=== PATIENT | female | born 1940 | race Caucasian/White ===

== ENCOUNTER → 2017-02-12 07:34 | Day surgery (SDC) | payer MEDICARE, OTHER ==
--- NOTE | 2017-02-10 17:57 | HP ---
HISTORY & PHYSICAL HPI: Patient is a 76-year-old woman, right-hand dominant, 3 months status post non-operative treatment of displaced fractures of the left proximal humerus and anteroinferior glenoid, who presents to me for follow up for the left shoulder and for a history and physical for planned left carpal tunnel release surgery. As a review, patient sustained her left shoulder injury when she fell downstairs on November 07, 2016. X-rays were obtained and then a CT scan to better elucidate the patient's fractures. Patient opted for nonoperative management of her shoulder injury, which seemed appropriate to me given her baseline lifestyle and function, her drinking of three glasses of wine a day, her status as a former smoker, and her recent strokes, with the patient having at least two. I managed the patient with a sling and then started her on physical therapy. Patient is progressing in physical therapy. She describes an occasional ache in the left shoulder, but no pain whatsoever. Past PT notes have indicated that she is able to obtain 95 degrees of passive forward flexion in that left shoulder, 92 degrees of abduction, 10 degrees of external rotation, and internal rotation within normal limits. The patient is no longer taking any narcotics for her pain and is very happy with her progress. However, while treating the patient for her left shoulder fractures, she described a longtime frustration with tingling and numbness in her left hand. It bothers her much more than her left shoulder. It may have been worsened by the shoulder fracture, though the patient and her describe a long history of similar symptoms. She has not had any noticeable swelling from the elbow to the fingertips, which might explain a direct worsening of symptoms because of the shoulder fractures. Patient first described it in all of her fingers, and then she described it as being in her left thumb, index, middle, and ring fingers. In the last 2 clinic visits, the patient, for the first time with me, has described some decreased strength of her left hand. Today, she described some difficulty making a fist. I was hoping that the patient's symptoms would improve as she healed her shoulder fractures, but her carpal tunnel symptoms have only worsened. I sent the patient for an EMG nerve conduction study test, which revealed severe carpal tunnel syndrome and the patient has opted for surgery. The patient was recently seen by her primary care physician, Dr. Biswas, who wrote that the patient is a medium risk for perioperative cardiovascular complications and low risk for perioperative pulmonary complications. He wrote that the patient could abstain from her aspirin (81mg) for 7 days preoperatively and that she could withhold her Xarelto dose the day prior to surgery. I spoke with Dr. Biswas after the patient's clinic visit and he stated that he was okay with the patient withholding Xarelto for the 2 days prior to surgery. The patient will restart it on the late afternoon or evening after surgery, along with her Aspirin. The patient also spoke with Dr. Pandey, her neurologist, due to her recent CVAs. He favored continued Xarelto perioperative dosing, but defered to Dr. Biswas 's judgement. PMH: Atrial fibrillation, hypertension, seizure disorder, history of cerebrovascular accidents. Patient seems to have impoverished memory, although I was not given a specific diagnosis of dementia. (The patient's past medical history is according to her and her , but she acknowledged that she might forget some diagnoses.) PAST SURGICAL HISTORY: In the the patient had general surgery. MEDICATIONS: 1) Xarelto 50 mg one tablet daily. 2) Diltiazem HCl ER 360 mg one tablet daily. 3) Percocet 5/325 one tablet as needed every four to six hours. 4) Levetiracetam 500 mg one tablet by mouth twice daily. 5) Digoxin 125 mcg two tablets by mouth daily. 6) Lamictal 100 mg one tablet by mouth twice daily. 7) Aspirin 81 mg one tablet by mouth daily. 8) Lipitor 20 mg one tablet by mouth q.h.s. ALLERGIES: No known drug allergies. SOCIAL HISTORY: No tobacco use recently, active smoker up to 1995. Positive alcohol use, approximately three glasses of wine daily. She currently lives with her . ROS: Positive for paresthesias and numbness, left hand worse than right hand. Positive for seizures, last seizure approximately one year ago. Positive for stroke, last stroke in June 2016. One other stroke several years ago. Positive for epilepsy Physical Exam: GENERAL: No acute distress. Alert and oriented x3. Appropriate mood and affect. Nonantalgic gait. Left upper extremity is neurovascularly intact distally. Patient seems somewhat frail. She can lose her train of thought and has trouble remembering topics at times. She has an unusual manner of speaking. HEART: Irregularly irregular rhythm. Grade 2 murmur systolically. No edema in bilateral lower extremities. LUNGS: Clear to auscultation bilaterally. LEFT SHOULDER: Passive range of motion 85 degrees of forward flexion, 5 degrees of external rotation, and 70 degrees of internal rotation. Patient's left shoulder with passive range of motion without any crepitus. No significant tenderness to palpation about the left shoulder. LEFT HAND: Reveals capillary refill less than 2 seconds. Durkan's maneuver causes pain at the site of compression, but no sensory symptoms more distal. Positive Tinel's, positive Phalen's, with these symptoms being most severe in the index, long, and ring fingers. Patient has weakness with thenar muscle stress testing as compared to contralateral right thumb. Decreased bulk of the left thenar eminence. I tested the patient's FDP and FHL functions and they are weaker in the left hand than in contralateral right hand. For the first time in clinic today, this prevented the patient from making a complete fist actively (but not passively). STUDIES: Three x-ray views of the left shoulder obtained in clinic today demonstrate no interval change in position. There does appear to be some interval bony healing of the fracture of the proximal humerus. As a re-review, EMG nerve conduction study performed by Dr. Chu in the last several months demonstrated findings consistent with severe carpal tunnel syndrome. ASSESSMENT: 1. Left carpal tunnel syndrome, severe. 2. Fracture, displaced, three-part proximal humerus fracture, left. 3. Fracture, displaced, anteroinferior glenoid, left. PLAN: 1. To the operating room for open left carpal tunnel release 02/12/17. 2. We already discussed open versus endoscopic carpal tunnel release at the last clinic visit and why we will opt for open with her, because of some limitations in the patient's shoulder abduction which might make positioning a slight inconvenience, but certainly not insurmountable. 3. We had discussed surgery for several clinic visits, but I wanted to wait and allow post-fracture swelling that might be prompting the patient's carpal tunnel worsening, to subside. However, the patient's symptoms have not changed and the patient does not have clear soft tissue swelling down the length of the arm that might link the two diagnoses, the left shoulder fractures and the carpal tunnel syndrome. Given that the EMG findings are severe and the symptoms are very bothersome, I think that the surgery is appropriate. 4. For the patient's left shoulder, I recommend that she continue the physical therapy and home exercises, and I am very happy with her progress. She will follow up in 3 mmonths in clinic with me with xrays of the left shoulder. 5. We will hold the patient's Xarelto and ASA for the 2 days pre-operatively and restart them in the late afternoon or evening of the day of surgery. ANA Sutton MD (above is my H&P, edited pre-op, obtained in clinic) (below is my H&P, unedited, and printed out in preo-op holding) HISTORY AND PHYSICAL: DATE OF ADMISSION/SURGERY: 02/12/17 PROCEDURE: Left carpal tunnel release. REASON FOR VISIT: HPI prior to left carpal tunnel release scheduled 02/12/17. HISTORY OF PRESENT ILLNESS: The patient is a very pleasant 76-year-old female who presents today for history and physical examination prior to undergoing a left carpal tunnel release scheduled for 02/12/17. The patient was recently seen by her primary care physician, Dr. Biswas, who states that the patient is a low risk for perioperative or postoperative complications and advised the patient not to take aspirin 7 days prior to surgery and not to take her Xarelto the day prior to surgery. The patient also spoke with Dr. Pandey, her neurologist, due to her recent CVAs. In brief, the patient has a concurrent left shoulder fracture which is mainly pain free; however, continues to have weakness in her left hand and she has noted that she is no longer able to make a full fist due to this weakness. She has undergone physical therapy, but continues to have numbness and tingling in her hand and has elected to undergo a left carpal tunnel release on 02/12/17. PAST MEDICAL HISTORY: 1. Atrial fibrillation. 2. Hypertension. 3. Seizure disorder. 4. History of CVA. PAST SURGICAL HISTORY: In 1969, exploratory laparotomy for gynecological problems. MEDICATIONS: 1. Xarelto 15 mg 1 tablet daily. 2. Diltiazem HCl ER 360 mg 1 tablet daily. 3. Percocet 5/325 one tablet as needed every 4 to 6 hours. 4. Levetiracetam 500 mg 1 tablet by mouth twice daily. 5. Digoxin 125 mcg 2 tablets by mouth daily. 6. Lamictal 100 mg 1 tablet by mouth twice daily. 7. Aspirin 81 mg 1 tablet by mouth daily. 8. Lipitor 20 mg 1 tablet by mouth q.h.s. ALLERGIES: None. FAMILY MEDICAL HISTORY: Noncontributory. SOCIAL HISTORY: No tobacco use recently. Active smoker up to 1995. Positive alcohol use, approximately 3 glasses of wine daily. Currently lives with her . REVIEW OF SYSTEMS: General: Negative for fevers, chills, night sweats. No difficulty with anesthesia. HEENT: Negative for headache, lightheadedness, or syncopal episodes. Integumentary: Negative for abrasions, lesions, or open wounds. Cardiothoracic: Negative for chest pain, palpitations, or edema. Positive for hypertension. Pulmonary: Negative for shortness of breath with exertion, chronic cough, or COPD. GI: Negative for nausea, vomiting, constipation, diarrhea, or GERD. : Negative for nocturia, urinary frequency , urgency, history of UTIs, or kidney problems. Musculoskeletal: Positive for left shoulder pain. Positive for left wrist pain. Mild right wrist pain. Neuro: Positive for paresthesias, numbness, left hand worse than right hand. Positive for seizures, last seizure approximately 1 year ago. Positive for stroke, last stroke June 2016. One other stroke several years ago. Positive for epilepsy. Endocrine: Negative for diabetes. Negative for thyroid. Hematologic: Negative for easy bruising, anemia, or excessive bleeding. No history of DVT or PE. ID: Negative for MRSA, hepatitis, or HIV. PHYSICAL EXAMINATION GENERAL: Well appearing in no acute distress, 76-year-old female, appears stated age. VITAL SIGNS: Height 61 inches, weight 121 pounds. Pulse 80, blood pressure 132 /82, respirations 16, temperature 98.7. BMI 22.9. HEENT: Normocephalic, atraumatic. EOMI. NECK: Supple. PULMONARY: Lungs clear to auscultation bilaterally. No crackles, rhonchi, or wheezes. CARDIOTHORACIC: Irregularly irregular rhythm. Grade 2 murmur systolically. No edema, bilateral lower extremities. ABDOMEN: Positive bowel sounds. Negative CVA tenderness bilaterally. Nondistended. NEUROLOGIC: Alert and oriented x3. Cranial nerves grossly intact. Sensation intact to light touch over upper forearms. MUSCULOSKELETAL: Negative Homans sign bilaterally. 2+ bilateral posterior tibial pulses. Radial and ulnar pulses are 2+ bilaterally. Neurovascularly intact, bilateral upper extremities. Decreased feeder catcher strength in the left hand in comparison to right and positive weakness with extension of her left shoulder. Positive pain and weakness with testing of left supraspinatus. ASSESSMENT: 1. Carpal tunnel syndrome, left upper limb. 2. Fracture of the proximal humerus at subsequent encounter. PLAN: 1. For the patient's left humerus, it will continue to be treated conservatively. She will follow up in 3 months with repeat x-rays. 2. Carpal tunnel syndrome. Dr. Goldberg will discuss with the patient's physician, Dr. Biswas, with regard to stopping Xarelto prior to the procedure clearance. ANA SUTTON [id number]/[facility] #: [id number] MTDD
[~2017-02-12 07:34] MED LIST: Acetaminophen TAB* 325 MG PO PRN; Buffered Lidocaine 1% SYRIN* 3 ML/SYR SYRINGE INTRADERM ONE; Bupivacaine 0.25% SDV* 30 ML ONE; Dexamethasone IV* 4 MG/ML 1 ML (4 MG) IV SLOW PU ONE; Dexamethasone IV* 4 MG/ML 1 ML (4 MG) ONE; HYDROcodone/ACETAMIN 5-325 MG* 1 TAB PO PRN; Lidocaine 1% INJ* 10 MG/ML 30 ML SDV ONE; Midazolam* 1 MG/ML 5 ML VIAL (5 MG) ONE; Ondansetron INJ* 2 MG/ML VIAL IV PRN; ceFAZolin 2 GM PREMIX(*) 2 GM/50 ML BAG IVPB ONE; fentaNYL* 50 MCG/ML 2 ML VIAL (100 MCG VIAL) IV PRN; fentaNYL* 50 MCG/ML 2 ML VIAL (100 MCG VIAL) ONE
[2017-02-12 10:29] VITALS: BP 148/88
--- NOTE | 2017-02-12 12:29 | OP ---
OPERATIVE REPORT: DATE OF OPERATION: 02/12/17 DATE OF : 40 SURGEON: Vick Goldberg MD EXTENSION SERVICE SPECIALIST IN CHARGE: ANA Bean ANESTHESIOLOGIST: Dr. Yi. ANESTHESIA: General sedation, local anesthesia. PRE-OP DIAGNOSIS: Left carpal tunnel syndrome. POST-OP DIAGNOSIS: Left carpal tunnel syndrome. OPERATIVE PROCEDURE: Left carpal tunnel release, open. ANTIBIOTICS: 2 g Ancef IV. TOURNIQUET TIME: 10 to 15 minutes approximately at 200 mmHg. IV FLUIDS: See anesthesia note. COMPLICATIONS: None. ESTIMATED BLOOD LOSS: None. SPECIMEN: None. IMPLANTS: None. INDICATIONS FOR PROCEDURE: The patient is a 76-year-old woman, right hand dominant, over 3 months o ut from a left displaced proximal humerus and anteroinferior glenoid fractures that I have been victoriano ting her nonoperatively for. In the course of my treatment of the patient, she described tingling in the index, middle and ring finger of the left hand. The patient had had this for many years but it was particularly bothering her now. I waited some time to schedule surgery to make sure that it wa s not swelling from the left shoulder fractures that was causing her symptoms. The patient for a pe riod of months had no more soft tissue swelling about the left upper extremity, but still had positi ve provocative carpal tunnel testing. EMG demonstrated severe carpal tunnel syndrome. The patient had multiple medical problems including history of seizure, CVAs, on blood thinner. The patient opte d for surgical management. DESCRIPTION OF PROCEDURE: Preoperative written consent. Discussed benefits, risks, and potential c omplications. Operative extremity was marked in preoperative holding. The patient was taken back t o the operating room and kept on the stretcher. Hand table was attached. General sedation was appl ied. A mini time- out was performed. I injected 8 cc of a mixture of 1:1 1% lidocaine and 0.25% Ma rcaine, without epinephrine. I injected 5 cc approximately 6 cm proximal of the wrist flexor fold f ollowed by 2 cc in the carpal tunnel and 1 cc in the distal volar forearm fascia. I attempted ultra sound-guided use but the ultrasound machine was not working perfectly, so I did it without ultrasoun d. We then prepped and draped the left upper extremity. Surgical time-out was performed. Esmarch was applied and tourniquet was elevated 200 mmHg. I identified all appropriate landmarks with a mar isael pen. I made approximately 2 cm longitudinal incision over the carpal tunnel through the skin. Subcutaneous tissue was exposed. I used Tim retractors to dissect through subcutaneous tissue to the volar wrist longitudinal fascia. A Weitlaner was used to retract tissue and a Tim was placed d istally. I then incised with 15 blade through that volar longitudinal fascia and revealed the trans verse carpal ligament. Retractors were replaced. The transverse carpal ligament was incised using a bouncing blade technique and the 15 blade. I then looked distally, spread superficial and deep to the transverse carpal ligament with scissors and freer. I released the ligament then to its distal end. Windham confirmed that it was completely released to fat distally. I then turned my attention proximally, placed a Tim proximally. Cleared tissue superficial and deep and used a 15 blade follo wed by scissors to release proximally. [place]ham went nicely into the volar forearm without any constri ction. Irrigation. Closure of skin with interrupted simple stitches using nylon 4-0 suture. Tourn iquet was dropped. Xeroform, 4x4's, sterile Kerlix. Coban was applied. The patient was awakened, lightened up sedation and brought to the PACU. DISPOSITION: The patient will be discharged home when medially stable. The patient will follow up in 7 to 10 days and will take Percocet as needed for pain control. [id number]/[facility] #: [id number]
== END | disposition home or self-care (01) ==
LOC: OR 07:34
PROVIDERS: ATTEND Orthopaedic Surgery
DX: G56.02 Carpal tunnel syndrome, left upper limb (principal); I48.91 Unspecified atrial fibrillation; I10 Essential (primary) hypertension; E78.5 Hyperlipidemia, unspecified; I69.398 Other sequelae of cerebral infarction; R56.9 Unspecified convulsions
CPT/HCPCS: J0690; J1100; J2001; J2250; J3010

== ENCOUNTER 2017-11-13 15:22 | Inpatient (IN) | payer MEDICARE, OTHER ==
[2017-11-13] MEDS ORDERED: NS 0.9% 1000 ML* 1,000 ML IV ONE (15:23)
--- NOTE | 2017-11-13 15:46 | RAD ---
INDICATION: Neurologic change. Code linton. COMPARISON: CT brain July 17, 2016 TECHNIQUE: Noncontrast axial source images were acquired from the skull base to the vertex. FINDINGS: Ventricles/sulci: There is cortical atrophy with compensatory dilatation of the CSF spaces. Brain parenchyma: There is periventricular and subcortical white matter change compatible with chronic ischemia. There is an old left occipital infarct with resulting encephalomalacia, unchanged Intracranial hemorrhage:None. Extra-axial spaces: There are no abnormal extra axial fluid collections. Suspect tiny calcified meningioma left middle cranial fossa, unchanged. Calvarium: There is no calvarial fracture or other calvarial abnormality. Scalp: There is no evidence of scalp or extracalvarial soft tissue abnormality. Paranasal sinuses/mastoid: The paranasal sinuses and mastoid air cells are clear. Other: None. IMPRESSION: 1. No acute intracranial findings 2. Cortical atrophy with chronic microvascular ischemic change. 3. Old left occipital infarct, unchanged. 4. Tiny, calcified, left middle cranial fossa meningioma, unchanged
[2017-11-13 15:53] LABS: Hematocrit 42 % (35-47); Hemoglobin 13.6 g/dl (12.0-16.0); Mean Corpuscular HGB Conc 33 g/dl (31-36); Mean Corpuscular Hemoglobin 30 pg (27-31); Mean Corpuscular Volume 93 fL (80-97); Mean Platelet Volume 9 um3 (7.4-10.4); Red Cell Distribution Width 14 % (10.5-15)
[2017-11-13] MEDS ORDERED: levETIRAcetam IV* 250 MG in NS 0.9% 100 ML* 100 ML IVPB ONE ×2 (15:57→17:53)
[2017-11-13] MEDS ORDERED: Diltiazem IV* 5 MG/ML 5 ML VIAL (for loading dose/IV Push) (25 MG) IV SLOW PU ONE (16:05)
[2017-11-13 16:08] LABS: BUN/Creatinine Ratio 17.6 (8-20); Calcium 8.8 mg/dL (8.6-10.3); EGFR African American 83.4 (>60); EGFR Non-African American 64.9 (>60); Globulin 2.8 g/dL (2-4); HDL Cholesterol 83.8 mg/dL; Potassium 3.6 mmol/L (3.5-5.0); Total Bilirubin 0.7 mg/dL (0.2-1.0); Total Protein 6.8 g/dL (6.4-8.9)
[2017-11-13 16:09] LABS: Troponin I 0.01 ng/mL (<0.04)
--- NOTE | 2017-11-13 16:11 | RAD ---
INDICATION: Neurologic changes. Code linton COMPARISON: Chest x-ray July 15, 2016 TECHNIQUE: An AP portable view obtained at 1600 hours is submitted. FINDINGS: Bones/Soft Tissues: There are no acute bony findings. Cardiomediastinal: The heart is top normal in size. The central pulmonary vessels and interstitium are prominent. There is interstitial and alveolar edema. Lungs: Interstitial and alveolar infiltrates most consistent with edema. Pleura: There are no significant pleural effusions. Other: None IMPRESSION: INTERSTITIAL AND ALVEOLAR EDEMA. SUGGEST FOLLOW-UP.
[2017-11-13] MEDS ORDERED: LORazepam INJ* 2 MG/ML 1 ML VIAL ONE ×2 (16:15→16:16)
[2017-11-13] MEDS ORDERED: NS 0.9% 1000 ML* 1,000 ML IV SCH (16:15)
[2017-11-13] MEDS ORDERED: LORazepam INJ* 2 MG/ML 1 ML VIAL IV PUSH ONE (16:16)
[2017-11-13] MEDS ORDERED: Ondansetron INJ* 2 MG/ML VIAL IV ONE ×2 (16:27→16:34)
[2017-11-13 16:31] LABS: Digoxin 0.2 ng/ml (0.8-2.0)
[2017-11-13] MEDS ORDERED: Ondansetron INJ* 2 MG/ML VIAL ONE (16:33)
[2017-11-13] MEDS ORDERED: Iohexol 350* (CONTRAST) 500 ML MDV IV ONE (16:47)
--- NOTE | 2017-11-13 17:26 | RAD ---
INDICATION: Neurologic changes. Code linton. Pulmonary edema. COMPARISON: CT brain same date; chest x-ray same date; MRA head July 15, 2016; CTA head and neck July 21, 2013; carotid ultrasound July 15, 2016 TECHNIQUE: Axial source images were acquired with coronal and sagittal reconstructions. CT angiographic technique was utilized with injection of 80 mL Omnipaque 350. FINDINGS: Aortic arch: There are moderate atherosclerotic changes of the arch or the great vessels arising from the arch. There is elongation of the ascending thoracic aorta with tortuosity of the great vessels. No significant origin stenoses are present. Right carotid: The common carotid artery, carotid bifurcation, extracranial portions of the internal carotid artery, carotid artery at the skull base, carotid siphon, and carotid termination appear patent. There is extensive calcific plaque formation the origin of the right internal carotid artery and there is some motion artifact which limits evaluation of the proximal ICA near the bifurcation. There is a stenosis which is likely in the 50-70% diameter range. This can be correlated with carotid ultrasonography. There are moderate intimal calcifications of the carotid siphon. Left carotid:The common carotid artery, carotid bifurcation, extracranial portions of the internal carotid artery, carotid artery at the skull base, carotid siphon, and carotid termination appear widely patent. There are mild intimal calcifications at the level of the origin of the left internal carotid artery. There are moderate calcifications involving the carotid siphon. Right middle and anterior cerebral arteries: There are no CT angiographic abnormalities of the middle or anterior cerebral arteries. Left middle and anterior cerebral arteries: There are no CT angiographic abnormalities of the middle or anterior cerebral arteries Right vertebral: The CT angiographic appearance of the vertebral artery is very diminutive and difficult to trace its confluence with the basilar artery. Left vertebral: The left vertebral artery shows wide patency and is the dominant vessel. Basilar artery: The basilar artery and basilar tip appear widely patent. There is dolichoectasia with intimal calcifications.. Posterior cerebral arteries: The right posterior cerebral artery is very diminutive. The left posterior cerebral artery appears normal in caliber and course [place]: The CT angiographic appearance of the [place] is normal. Source images show no evidence of mass or adenopathy within the neck. There are no focal brain parenchymal abnormalities or abnormal areas of enhancement. Limited views of the upper lung mitchell show interstitial and alveolar change most prominent in the right upper lobe. Chest x-ray shows pulmonary edema. IMPRESSION: 1. Moderate atherosclerotic changes of the arch and great vessels arising from the arch but no evidence of a significant proximal stenosis. 2. Limited evaluation of the origin of the right internal carotid artery due to the presence of a calcific plaque and mild motion. The degree of stenosis is difficult to estimate and should be correlated with carotid sonography. 3. Diminutive right vertebral artery 4. Diminutive right posterior cerebral artery. 5. No evidence of significant intracranial stenosis, aneurysm, branch occlusion. CPT II Codes: 3100F RS
--- NOTE | 2017-11-13 18:33 | ED ---
Stacey Ramirez Emily, scribed for José Luis Rolle MD on 11/13/17 at 1543 . Neurological HPI - HPI Summary HPI Summary: UNABLE TO OBTAIN FULL HPI DUE TO LEVEL 5 CAVEAT - NEUROLOGICAL DEFICITS, APHASIA This patient is a 77 year old F BIBA to [facility] with a chief complaint of neurological deficits that began at 1500 today. According to family, pt was walking through [employer] and began slur her words and feel weak. Pt then fell. Pt has a history of seizures, and has had two previous strokes. - History of Current Complaint Chief Complaint: EDNeurologicalDeficit Stated Complaint: STROKE Time Seen by Provider: 11/13/17 15:23 Hx Obtained From: Family/Machine Group Leader Hx From Patient Unobtainable Due To: Other - Neurological deficits, aphasia Character: Motor Weakness Associated Signs and Symptoms: Positive: Impaired Speech - Additional Pertinent History Primary Care Physician: [id number] - Allergy/Home Medications Allergies/Adverse Reactions: Allergies Allergy/AdvReac Type Severity Reaction Status Date / Time No Known Allergies Allergy Verified 02/12/17 08:03 PMH/Surg Hx/FS Hx/Imm Hx Previously Healthy: No - UNABLE TO OBTAIN FULL PMHx DUE TO LEVEL 5 CAVEAT - NEUROLOGICAL DEFICITS Endocrine/Hematology History: Denies: Hx Diabetes, Hx Anemia Cardiovascular History: Reports: Hx Coronary Artery Disease, Hx Hypertension, Other Cardiovascular Problems/Disorders - NEW ONSET A-FIB Denies: Hx Angina, Hx Congestive Heart Failure, Hx Pacemaker/ICD Respiratory History: Reports: Hx Chronic Obstructive Pulmonary Disease (COPD), Other Respiratory Problems/Disorders - PRIOR SMOKER. QUIT 1994 Denies: Hx Asthma, Hx Chronic Bronchitis, Hx Pneumonia, Hx Sleep Apnea GI History: Denies: Hx Jaundice History: Reports: Other Problems/Disorders - HX HEMATURIA Denies: Hx Renal Disease Musculoskeletal History: Reports: Hx Orthopedic Injury - LEFT HUMEROUS FRACTURE , Hx Osteoporosis, Other Musculoskeletal History - OSTEOPOROSIS Denies: Hx Arthritis Sensory History: Reports: Hx Contacts or Glasses - contacts, Hx Hearing Aid, Other Sensory Impairments Denies: Hx Cataracts - removed bilateraly Opthamlomology History: Reports: Hx Contacts or Glasses - contacts, Other Sensory Impairments Denies: Hx Cataracts - removed bilateraly Neurological History: Reports: Hx Seizures, Hx Transient Ischemic Attacks (TIA) Denies: Hx Developmental Delay, Hx Headaches, Hx Migraine, Hx Nerve Disease, Hx Spinal Cord Injury, Other Neuro Impairments/Disorders Comment Only: Hx Dementia - hx of STM deficits Psychiatric History: Denies: Hx Anxiety, Hx Depression, Hx Panic Disorder - Surgical History Surgery Procedure, Year, and Place: GROWTH ON UTERUS REMOVED/ FIBROID 1972 Hx Anesthesia Reactions: No - Immunization History Date of Tetanus Vaccine: Up to date Date of Influenza Vaccine: fall 2014 Infectious Disease History: Denies: Traveled Outside the [place] in Last 30 Days - Family History Known Family History: Positive: None - Social History Occupation: Retired Lives: With Family Alcohol Use: Occasionally Alcohol Amount: 4 wine/day Substance Use Type: Reports: None Smoking Status (MU): Former Smoker Type: Cigarettes, Pipe Amount Used/How Often: 1/2 PPD - QUIT IN 1995 Length of Time of Smoking/Using Tobacco: 55 years Have You Smoked in the Last Year: No Review of Systems - ROS Summary Review of Systems Summary: UNABLE TO OBTAIN ROS DUE TO LEVEL 5 CAVEAT - NEUROLOGICAL DEFICITS, APHASIA All Other Systems Reviewed And Are Negative: No Physical Exam - Summary Physical Exam Summary: UNABLE TO OBTAIN FULL PE DUE TO LEVEL 5 CAVEAT - NEUROLOGICAL DEFICIT, APHASIA Triage Information Reviewed: Yes Vital Signs On Initial Exam: Initial Vitals Temp Pulse Resp BP Pulse Ox 100.2 F 118 25 147/112 97 11/13/17 15:25 11/13/17 15:25 11/13/17 15:25 11/13/17 15:25 11/13/17 15:25 Vital Signs Reviewed: Yes Appearance: Positive: Well-Appearing, No Pain Distress Skin: Positive: Warm, Skin Color Reflects Adequate Perfusion, Dry Head/Face: Positive: Normal Head/Face Inspection Eyes: Positive: EOMI, SAMMY, Other: - Forced left gaze ENT: Positive: Other - Nonverbal Neck: Positive: Supple, Nontender Respiratory/Lung Sounds: Positive: Clear to Auscultation, Breath Sounds Present Cardiovascular: Positive: IRR, Tachycardia Abdomen Description: Positive: Nontender, Soft Bowel Sounds: Positive: Present Musculoskeletal: Positive: Other - Moves all four extremities. Right leg and right arm appear to be weaker than the left side Neurological: Positive: Normal, Sensory/Motor Intact, Alert, Oriented to Person Place, Time Psychiatric: Positive: Affect/Mood Appropriate Diagnostics - Vital Signs Vital Signs Temp Pulse Resp BP Pulse Ox 11/13/17 16:16 30 12/16/17 15:25 100.2 F 118 25 147/112 97 - Laboratory Lab Results: Lab Results 11/13/17 11/13/17 11/13/17 Range/Units 15:42 15:42 15:42 WBC 11.0 H (3.5-10.8) 10^3/ul RBC 4.50 (4.0-5.4) 10^6/ul Hgb 13.6 (12.0-16.0) g/dl Hct 42 (35-47) % MCV 93 (80-97) fL MCH 30 (27-31) pg MCHC 33 (31-36) g/dl RDW 14 (10.5-15) % Plt Count 236 (150-450) 10^3/ul MPV 9 (7.4-10.4) um3 Neut % (Auto) 66.7 (38-83) % Lymph % (Auto) 22.4 L (25-47) % Don[place]han % (Auto) 8.2 (1-9) % Eos % (Auto) 2.1 (0-6) % Baso % (Auto) 0.6 (0-2) % Absolute Neuts (auto) 7.3 (1.5-7.7) 10^3/ul Absolute Lymphs (auto) 2.5 (1.0-4.8) 10^3/ul Absolute Monos (auto) 0.9 H (0-0.8) 10^3/ul Absolute Eos (auto) 0.2 (0-0.6) 10^3/ul Absolute Basos (auto) 0.1 (0-0.2) 10^3/ul Absolute Nucleated RBC 0.01 10^3/ul Nucleated RBC % 0.1 INR (Anticoag Therapy) 1.01 (0.77-1.02) APTT 26.1 (26.0-36.3) seconds Sodium 138 (133-145) mmol/L Potassium 3.6 (3.5-5.0) mmol/L Chloride 105 (101-111) mmol/L Carbon Dioxide 19 L (22-32) mmol/L Anion Gap 14 H (2-11) mmol/L BUN 15 (6-24) mg/dL Creatinine 0.85 (0.51-0.95) mg/dL Est GFR ( Amer) 83.4 (>60) Est GFR (Non-Af Amer) 64.9 (>60) BUN/Creatinine Ratio 17.6 (8-20) Glucose 184 H (70-100) mg/dL POC Glucose (mg/dL) (70-100) mg/dL Lactic Acid (0.5-2.0) mmol/L Calcium 8.8 (8.6-10.3) mg/dL Magnesium 2.0 (1.9-2.7) mg/dL Total Bilirubin 0.70 (0.2-1.0) mg/dL AST 69 H (13-39) U/L ALT 46 (7-52) U/L Alkaline Phosphatase 106 H (34-104) U/L Troponin I 0.01 (<0.04) ng/mL B-Natriuretic Peptide ( - 100) pg/mL Total Protein 6.8 (6.4-8.9) g/dL Albumin 4.0 (3.2-5.2) g/dL Globulin 2.8 (2-4) g/dL Albumin/Globulin Ratio 1.4 (1-3) Triglycerides 121 mg/dL Cholesterol 164 mg/dL LDL Cholesterol 56 mg/dL HDL Cholesterol 83.8 mg/dL Digoxin 0.2 L (0.8-2.0) ng/ml Blood Type Antibody Screen 11/13/17 11/13/17 11/13/17 Range/Units 15:42 15:42 15:42 WBC (3.5-10.8) 10^3/ul RBC (4.0-5.4) 10^6/ul Hgb (12.0-16.0) g/dl Hct (35-47) % MCV (80-97) fL MCH (27-31) pg MCHC (31-36) g/dl RDW (10.5-15) % Plt Count (150-450) 10^3/ul MPV (7.4-10.4) um3 Neut % (Auto) (38-83) % Lymph % (Auto) (25-47) % Don[place]han % (Auto) (1-9) % Eos % (Auto) (0-6) % Baso % (Auto) (0-2) % Absolute Neuts (auto) (1.5-7.7) 10^3/ul Absolute Lymphs (auto) (1.0-4.8) 10^3/ul Absolute Monos (auto) (0-0.8) 10^3/ul Absolute Eos (auto) (0-0.6) 10^3/ul Absolute Basos (auto) (0-0.2) 10^3/ul Absolute Nucleated RBC 10^3/ul Nucleated RBC % INR (Anticoag Therapy) (0.77-1.02) APTT (26.0-36.3) seconds Sodium (133-145) mmol/L Potassium (3.5-5.0) mmol/L Chloride (101-111) mmol/L Carbon Dioxide (22-32) mmol/L Anion Gap (2-11) mmol/L BUN (6-24) mg/dL Creatinine (0.51-0.95) mg/dL Est GFR ( Amer) (>60) Est GFR (Non-Af Amer) (>60) BUN/Creatinine Ratio (8-20) Glucose (70-100) mg/dL POC Glucose (mg/dL) (70-100) mg/dL Lactic Acid 6.1 H* (0.5-2.0) mmol/L Calcium (8.6-10.3) mg/dL Magnesium (1.9-2.7) mg/dL Total Bilirubin (0.2-1.0) mg/dL AST (13-39) U/L ALT (7-52) U/L Alkaline Phosphatase (34-104) U/L Troponin I (<0.04) ng/mL B-Natriuretic Peptide 285 H ( - 100) pg/mL Total Protein (6.4-8.9) g/dL Albumin (3.2-5.2) g/dL Globulin (2-4) g/dL Albumin/Globulin Ratio (1-3) Triglycerides mg/dL Cholesterol mg/dL LDL Cholesterol mg/dL HDL Cholesterol mg/dL Digoxin (0.8-2.0) ng/ml Blood Type O Positive Antibody Screen Negative 11/13/17 Range/Units 16:01 WBC (3.5-10.8) 10^3/ul RBC (4.0-5.4) 10^6/ul Hgb (12.0-16.0) g/dl Hct (35-47) % MCV (80-97) fL MCH (27-31) pg MCHC (31-36) g/dl RDW (10.5-15) % Plt Count (150-450) 10^3/ul MPV (7.4-10.4) um3 Neut % (Auto) (38-83) % Lymph % (Auto) (25-47) % [place]han % (Auto) (1-9) % Eos % (Auto) (0-6) % Baso % (Auto) (0-2) % Absolute Neuts (auto) (1.5-7.7) 10^3/ul Absolute Lymphs (auto) (1.0-4.8) 10^3/ul Absolute Monos (auto) (0-0.8) 10^3/ul Absolute Eos (auto) (0-0.6) 10^3/ul Absolute Basos (auto) (0-0.2) 10^3/ul Absolute Nucleated RBC 10^3/ul Nucleated RBC % INR (Anticoag Therapy) (0.77-1.02) APTT (26.0-36.3) seconds Sodium (133-145) mmol/L Potassium (3.5-5.0) mmol/L Chloride (101-111) mmol/L Carbon Dioxide (22-32) mmol/L Anion Gap (2-11) mmol/L BUN (6-24) mg/dL Creatinine (0.51-0.95) mg/dL Est GFR ( Amer) (>60) Est GFR (Non-Af Amer) (>60) BUN/Creatinine Ratio (8-20) Glucose (70-100) mg/dL POC Glucose (mg/dL) 186 H (70-100) mg/dL Lactic Acid (0.5-2.0) mmol/L Calcium (8.6-10.3) mg/dL Magnesium (1.9-2.7) mg/dL Total Bilirubin (0.2-1.0) mg/dL AST (13-39) U/L ALT (7-52) U/L Alkaline Phosphatase (34-104) U/L Troponin I (<0.04) ng/mL B-Natriuretic Peptide ( - 100) pg/mL Total Protein (6.4-8.9) g/dL Albumin (3.2-5.2) g/dL Globulin (2-4) g/dL Albumin/Globulin Ratio (1-3) Triglycerides mg/dL Cholesterol mg/dL LDL Cholesterol mg/dL HDL Cholesterol mg/dL Digoxin (0.8-2.0) ng/ml Blood Type Antibody Screen Result Diagrams: 11/13/17 15:42 11/13/17 15:42 Lab Statement: Any lab studies that have been ordered have been reviewed, and results considered in the medical decision making process. - Radiology CXR Radiology Interpretation Completed By: Radiologist - CXR reveals, per radiologist, interstitial and alveolar edema. Suggest follow-up. Dr. Rolle has reviewed this radiology report. - CT Brain CT Interpretation Completed By: Radiologist - Brain CT reveals, per radiologist , 1. No acute intracranial findings 2. Cortical atrophy with chronic microvascular ischemic change. 3. Old left occipital infarct, unchanged. 4. Tiny, calcified, left middle cranial fossa meningioma, unchanged. Dr. Rolle has reviewed this radiology report. Head CTA CT Interpretation Completed By: Radiologist - Head CTA reveals, per radiologist , 1. Moderate atherosclerotic changes of the arch and great vessels arising from the arch but no evidence of a significant proximal stenosis. 2. Limited evaluation of the origin of the right internal carotid artery due to the presence of a calcific plaque and mild motion. The degree of stenosis is difficult to estimate and should be correlated with carotid sonography. 3. Diminutive right vertebral artery 4. Diminutive right posterior cerebral artery. 5. No evidence of significant intracranial stenosis, aneurysm, branch occlusion. Dr. Rolle has reviewed this radiology report. - EKG 1537 Cardiac Rate: Other Rate EKG Rhythm: Atrial Fibrillation - Rapid AFib at 130 BPM EKG Interpretation: Anterior Q Waves NIH Scale - NIH Scale Level of Consciousness: Responds to Minor Stimulation Ask Patient the Month and His/Her Age: Neither Correct/Aphasic Ask Pt to Open/Close Eyes and User Support Specialist/Release Non-Paretic Hand: Neither Correctly Best Gaze (Only Horizontal Eye Movement): Forced Deviation Visual Field Testing: Complete Hemianopia Facial Paresis-Pt to Smile & Close Eyes or Grimace Symmetry: Minor Paralysis Motor Function - Right Arm: Drifts LT 10 seconds Motor Function - Left Arm: No Drift-Holds 10 Seconds Motor Function - Right Leg: Drifts LT 10 seconds Motor Function - Left Leg: No Drift-Holds 10 Seconds Limb Ataxia-Must be out of Proportion to Weakness Present: Present in Two Limbs Sensory (Use Pinprick to Test Arms/Legs/Trunk/Face): Pinprick Less on Affected Best Language (Describe Picture, Name Items): Severe Aphasia Dysarthria (Read Several Words): Slurs Some Words Extinction and Inattention: Profound Roel-Inattention Total Score: 20 Course/Dx - Course Course Of Treatment: DISCUSSED WITH DR FARRELL NEUROLOGY AND ORIENT NEUROLOGY. ADMIT HOSPITALIST. - Diagnoses Provider Diagnoses: Seizure, CHF (congestive heart failure), Rapid atrial fibrillation During the Visit The Following Alert/Code Occurred: Code Elizabeth - Physician Notifications Discussed Care Of Patient With: Edgar Farrell Time Discussed With Above Provider: 15:53 Instructed by Provider To: Other - Consult with Dr. Farrell (neurology) at [phone]. Dr. Farrell has previously seen the pt previously, and believes this is similar to her previous seizures. Tele-consult with neurologist from [facility]. Physician recommended a CTA head and neck, no tpa. Physician also agreed with treatment plan. Consult with Dr. Zaldivar (hospitalist) at [phone]. He agrees to admit pt. - Critical Care Time Critical Care Time: 30-74 min Discharge - Discharge Plan Condition: Guarded Disposition: ADMITTED TO [facility] Referrals: Jigar Biswas MD [Primary Care Provider] - The documentation as recorded by the Stacey kelley Emily accurately reflects the service I personally performed and the decisions made by me, José Luis Rolle MD.
--- NOTE | 2017-11-13 18:35 | PN ---
Progress Note - Progress Note Date of Service: 11/13/17 Note: Pt seen and discussed with GIRMA Matthews. Labs, vitals, data reviewed. Agree with assessment and plan as outlined unless indicated here. 77 F p/w suspected seizure. Seizure - keppra loaded. D/w neuro continued IV keppra dose. IV ativan for breakthrough seizure >2minutes. Neuro checks Respiratory failure - Combination of suspected CHF exacerbation, aspiration, and possible underlying PNA. Treat with cefepime, lasix, vapotherm, repeat CR in AM. Lactic acidosis - repeat mod-Severe MR - contributing to volume overload. Careful with any fluid administration EtOH dependance - WAM protocol Increased glucose- check HbA1c
[2017-11-13] MEDS ORDERED: Furosemide IV* 10 MG/ML VIAL (40 MG) IV SLOW PU ONE (18:45)
[2017-11-13] MEDS ORDERED: LORazepam INJ* 2 MG/ML 1 ML VIAL IV PUSH PRN (18:48)
[2017-11-13] MEDS ORDERED: Metoprolol Tartrate IV* 1 MG/ML 5 ML VIAL IV ONE (18:52)
[2017-11-13] MEDS ORDERED: Metoprolol Tartrate IV* 1 MG/ML 5 ML VIAL IV PRN (18:52)
[2017-11-13] MEDS ORDERED: Thiamine IV* 100 MG/ML 2 ML VIAL IM ONE (19:02)
[2017-11-13] MEDS: Clindamycin 600 MG IVPREMIX(* 600 MG/50 ML SDV IV SCH (19:49)
[2017-11-13] MEDS: KCL 20 MEQ/100 ML IVPREMIX* 20 MEQ/100 ML BAG IV SCH ×2 (19:50→22:35)
[2017-11-13 20:40] LABS: Urine Bacteria Absent (Absent); Urine Bilirubin Negative (Negative); Urine Glucose Negative (Negative); Urine Nitrite Negative (Negative)
[2017-11-13] MEDS ORDERED: levETIRAcetam IV* 500 MG in NS 0.9% 100 ML* 100 ML IVPB ONE (21:00)
[2017-11-13] MEDS ORDERED: levETIRAcetam 500 MG IVPREMIX* 500 MG/100 ML BAG IV ONE (22:00)
--- NOTE | 2017-11-13 23:22 | HP ---
CC: Dr. Jigar Biswas; Dr. Edgar Pandey * HISTORY AND PHYSICAL: DATE OF ADMISSION: 11/13/17 PROVIDER: Juan Bowles NP ATTENDING PHYSICIAN: Dr. Gallo Zaldivar * (dictated by Juan Bowles NP). PRIMARY CARE PROVIDER: Dr. Jigar Biswas. CONSULTING PHYSICIAN: Dr. Edgar Pandey, Neurology. CONSULTING NEUROLOGIST: Dr. Spain of [facility]. CHIEF COMPLAINT: Seizure. HISTORY OF PRESENT ILLNESS: Ms. Patel is a 77-year-old female who was brought in by ambulance this afternoon with concern for neurological deficit. Per her , Kevin Patel, they were shopping at [employer]. He states that they met together in the store and they were each pushing a cart. He started talking to her and noticed that she was staring off in the space. He noted that she was not responding and recognized that she may be having seizure activity and started to dial 911. During that time, the patient then fell down and he noticed that she was shaking he states mostly in her legs, but was not sure if her upper extremities were also shaking. EMS did arrive on the scene relatively quickly, had concern for potential CVA and called a code royer in the field. The patient was last seen normal on 1500 and the code royer was called and the patient was brought into the ER. Telestroke protocol was initiated in the ED. During the initial evaluation, the patient was noted to have vomited and had a witnessed seizure. At that time, she received Ativan. It was felt that her symptoms were mostly secondary to seizure and less likely to be CVA. When the patient first arrived to the ER, she was noted to have left-sided fixed gaze and was nonverbal. She also was noted to have right-sided weakness, but was able to move all extremities short time thereafter. She has been able to say a few words, but still mostly remains nonverbal at this time. Her initial NIH stroke scale was 20 likely secondary to the patient's inability to follow commands and participate with the neuro assessment. Per [facility] neurologist , a CTA was performed to monitor and evaluate for occlusion, which was not seen. She is not a tPA candidate secondary to her taking Xarelto. 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 Ms. Patel was also noted to be in rapid AFib upon arrival. She has a known history of chronic atrial fibrillation, but was given diltiazem 10 mg IV push with good effect on her rate. The patient's initial chest x-ray showed concern for congestion. Her CT of the brain showed no acute intracranial findings other than an old left occipital infarct with encephalomalacia, which is an expected finding. Her labs show concern for a mild leukocytosis of 11,000 as well as a lactic acid of 6.1. PAST MEDICAL HISTORY: Includes: 1. Chronic atrial fibrillation, on Xarelto. 2. Hypertension. 3. Seizure disorder, post CVA epilepsy. 4. History of CVA with left occipital involvement. 5. Osteoporosis. 6. Seasonal rhinitis. 7. COPD. 8. Asthma. PAST SURGICAL HISTORY: Includes: 1. Left carpal tunnel release this year. 2. History of exploratory lap procedure for [employer] causes. HOME MEDICATIONS: Per the 's recollection: 1. Keppra 500 mg q.a.m. and 750 mg at bedtime. 2. Lamotrigine 100 mg b.i.d. 3. Atorvastatin 20 mg in the evening. 4. Aspirin 81 mg daily. 5. Tylenol 650 mg q.6 hours p.r.n. 6. Hydrocerin 1 application topical b.i.d. 7. Diltiazem CD 180 mg q.a.m. 8. Rivaroxaban 15 mg q.a.m. ALLERGIES: No known allergies. FAMILY HISTORY: Reviewed and noncontributory. SOCIAL HISTORY: The patient is a former smoker, having quit in 1995. Her states that she is a regular wine drinker with the patient usually having a few glasses of wine daily. He denies any history of illicit drug use. 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 They lives at home together and they are both independent with their ADLs. Her , Kevin Patel is the surrogate decision maker in the event of emergency. REVIEW OF SYSTEMS: A 12-point review of systems was attempted, limited secondary to the patient's neurological status and aphasia, any pertinent findings were obtained from the are included in the HPI. PHYSICAL EXAMINATION GENERAL: This is an older female, who is lying in the ED stretcher. She is fidgeting, but does not appear to be in any acute pain or significant distress. VITAL SIGNS: Temperature 100.2, heart rate 115, respiratory rate 28, blood pressure 126/94, and O2 saturation 97% on Vapotherm with an oxygen flow rate of 40 L a minute and 70% FiO2. HEENT: Head is normocephalic. Face is symmetrical. Pupils are equal, round, and reactive to light. Extraocular movements are intact. I am able to get the patient to move her eyes across midline to the right. Oral mucosa appears moist. There is visible debris in the mouth. NECK: Supple, nontender. No lymphadenopathy appreciated. No JVD noted. LUNGS: Mild crackles noted in the bilateral bases. There is good aeration throughout all lung mitchell. CARDIAC: Irregularly irregular rate and rhythm. The patient is tachycardic. No murmurs noted. There is no peripheral edema. Distal pulses are 2+ and present throughout. ABDOMEN: Soft, nontender, nondistended. Bowel sounds are normoactive and present times all 4 quadrants. MUSCULOSKELETAL: The patient is able to move all 4 extremities. The range of motion is difficult to determine. There is no clubbing or cyanosis. Again, limited assessment, but appears grossly intact. NEURO: The patient does not cooperate with neuro exam. She is able to open her eyes and attempts to make verbalizations, but mostly mumbles. The right side does appear to be mildly weaker than the left side, but all extremities again are moving. DIAGNOSTIC STUDIES/LAB DATA: CBC: WBC 11.0, hemoglobin 13.6, hematocrit 42, platelet count 236. INR 1.01. CMP: Sodium 138, potassium 3.6, chloride 105, carbon dioxide 19, BUN 15, creatinine 0.85, glucose 184, lactic acid 6.1, calcium 8.8, magnesium 2.0, total bilirubin 0.7, AST 69, ALT 46, alk phos 106, troponin 0.01, BNP 285, albumin 4.0. Digoxin level 0.2. CT of the brain, impression: 1. No acute intracranial findings. 2. Cortical atrophy with chronic microvascular ischemic change. 3. Old left occipital infarct unchanged. 4. Tiny calcified left middle cranial fossa meningioma unchanged. Chest x-ray, impression: Interstitial and alveolar edema, suggest followup. EKG shows atrial fibrillation with nonspecific ST changes. CTA of the head, impression: 1. Moderate atherosclerotic changes of the arch and grade vessels, arising from the arch, but no evidence of a significant proximal stenosis. 2. Limited evaluation of the origin of the right internal carotid artery due to the presence of a calcified plaque and mild motion. The degree of stenosis is difficult to estimate and should be correlated with carotid sonography. 3. Diminutive right vertebral artery. 4. Diminutive right posterior cerebral artery. 5. No evidence of significant intracranial stenosis, aneurysm, branch occlusion. ASSESSMENT AND PLAN: This is a 77-year-old female who presents with suspected and witnessed seizure most likely secondary to post CVA epilepsy. She will be admitted to the ICU. Plan is as follows: 1. Seizure disorder. The patient is status post 2 doses of IV Keppra 250 mg each for a total dosing of 500 mg. I did review the patient with Dr. Pandey who is familiar with the patient in the outpatient setting. He recommends giving the patient an additional 500 mg tonight IV and then starting IV Keppra 750 mg in the morning to be given b.i.d. The patient is currently n.p.o. secondary to neurological deficit, but when the patient does arouse more, nursing can attempt bedside dysphagia screen and assess her ability and safety to take p.o. medications. We will continue with q.2 neuro checks. The patient is also ordered p.r.n. lorazepam if she has anymore seizure activity. We will continue to monitor her closely. 2. Acute hypoxic respiratory failure. Suspect that this is a combination of suspected congestive heart failure exacerbation versus negative pressure pulmonary edema secondary to seizure. In any event, the patient's chest x-ray was taken prior to the aspiration event in the ED and showed concern for vascular congestion. I do note that she does have some mild crackles noted and will give her one time dose of IV Lasix to see how this helps her respiratory status. Additionally, there may now be an aspiration component given the episode here in the ED and it cannot be ruled out that the patient may have previously aspirated while at [facility]. We will start her on IV clindamycin, as cefepime does lower the seizure threshold per Neurology and is not ideal for this patient. Continue her on Vapotherm. We will repeat a chest x-ray in the morning. The patient's acute respiratory failure is likely a combination of her volume overload, potential congestive heart failure, aspiration and question of developing pneumonia. It should also be noted that the patient does have a history of moderate to severe MR that was seen on previous echocardiogram, which may be also need to consider as we continued to fluid resuscitate her as the patient may be more prone to fluid overload. 3. Lactic acidosis. Plan to follow up this value. I suspect this is likely secondary to the patient's seizure activity. 4. Hyperglycemia. The patient does not have a known history of diabetes. We will check a hemoglobin A1C. 5. History of alcohol dependence. We will place him on a WA protocol. 6. History of chronic atrial fibrillation, continue Xarelto. The patient is normally on diltiazem. She did receive a one time dose of IV diltiazem in the ER. I would like to hold off on initiating a Cardizem drip at this time. We will give her a one time dose of IV metoprolol. If the patient persists in rapid atrial fibrillation, we could initiate the diltiazem drip later on this evening. 7. Hypertension, currently improved. Resume p.o. medications if the patient is able. Continue with p.r.n. Lopressor. 8. History of cerebrovascular accident. Resume aspirin and Lipitor once able to take p.o. 9. History of chronic obstructive pulmonary disease, appears stable. The patient is not audibly wheezing and does not appear to be in acute exacerbation. 10. FEN. The patient is n.p.o. secondary to neurological deficit. Plan for bedside dysphagia screen when able to do so safely. 11. DVT prophylaxis. Continue Xarelto. The patient is ordered SCDs. 12. Code status. She is a full code per her . TIME SPENT: Time spent on this admission was approximately 75 minutes with greater than half that time spent [id number] with the patient and family, obtaining history and physical, performing the physical examination, and reviewing the plan of care. Plan of care was also reviewed with my attending, Dr. Gallo Zaldivar, who is in agreement. JUAN BOWLES, FUNERAL ASSISTANT [id number]/[facility] #: [id number] [facility]
[2017-11-14] MEDS: LORazepam INJ* 2 MG/ML 1 ML VIAL IV PUSH SCH ×2 (00:13→16:58)
[2017-11-14] MEDS: Clindamycin 600 MG IVPREMIX(* 600 MG/50 ML SDV IV SCH ×3 (03:12→20:01)
[2017-11-14 06:48] LABS: Hematocrit 40 % (35-47); Mean Corpuscular HGB Conc 32 g/dl (31-36); Mean Corpuscular Hemoglobin 30 pg (27-31); Mean Corpuscular Volume 93 fL (80-97); Mean Platelet Volume 9 um3 (7.4-10.4); Red Blood Count 4.32 10^6/ul (4.0-5.4); Red Cell Distribution Width 14 % (10.5-15); White Blood Count 13.2 10^3/ul (3.5-10.8)
[2017-11-14 07:03] LABS: BUN/Creatinine Ratio 18.8 (8-20); Calcium 8.5 mg/dL (8.6-10.3); EGFR African American 89.4 (>60); EGFR Non-African American 69.6 (>60); Potassium 4.4 mmol/L (3.5-5.0)
--- NOTE | 2017-11-14 07:40 | RAD ---
HISTORY: Respiratory failure COMPARISONS: November 13, 2017 VIEWS: 1: frontal portable view of the chest at 6:00 AM FINDINGS: LINES AND TUBES: None. CARDIOMEDIASTINAL SILHOUETTE: The cardiac silhouette is enlarged. The cardiomediastinal silhouette is otherwise normal for portable technique. PLEURA: The costophrenic angles are sharp. No pleural abnormalities are noted. LUNG PARENCHYMA: There is a diffuse coarse pattern of reticular opacification. There has been improved aeration compared to the previous examination. ABDOMEN: The upper abdomen is clear. There is no subphrenic gas. BONES AND SOFT TISSUES: Chronic appearing left humerus fracture is noted. IMPRESSION: 1. CARDIOMEGALY. 2. IMPROVEMENT IN PULMONARY INTERSTITIAL EDEMA WITH PERSISTENT COARSE INTERSTITIAL PATTERN SUGGESTIVE OF CHRONIC INTERSTITIAL LUNG DISEASE
[2017-11-14] MEDS: levETIRAcetam IV* 750 MG in NS 0.9% 100 ML* 100 ML IVPB SCH ×2 (09:13→21:40)
[2017-11-14] MEDS ORDERED: Acetaminophen TAB* 325 MG PO PRN (09:21)
--- NOTE | 2017-11-14 09:53 | PN ---
Date of Service: 11/14/17 - [facility] note Critical Care Services: Pt seen and examined at bedside. Pt was brought in by EMS after episode of AMS when she was in grocery store, apparently fell to ground and had movements of her limbs suggestive of seizure disorder. She has h/o seizure disorder, post CVA epilepsy. Stroke code was called, tPA was deferred as pt was on Xarelto. Pt is alert, oriented to place, person, time this morning, confused slightly with certain facts. She is slightly dysarthic with rt facial droop. She was able to narrate episode that happened yesterday, was able to say, she was at store, was not feeling to herself even prior to going to store and was brought by ambulance to hospital. She was able to state her address, knows date, month and year. She was started on Keppra IV and Ativan prn. She apparently vomited whiel in ED and was started on Clindamycin for possible aspiration pneumonitis. She is in A.fib, was given Diltiazem in ED. She was started on Diltiazem at home dose and Digoxin this am. ROS as per above Vital Signs: Temp Pulse Resp BP SpO2 FiO2 99.5 F 115 34 157/116 92 40 11/14/17 07:30 11/14/17 09:00 11/14/17 09:00 11/14/17 09:00 11/14/17 09:00 11/14 07:20 Physical Exam: Gen: Pt in NAD, alert, orientedx3 HEENT: PERRLA, No JVD Lungs: Diminished air entry at bases, no wheeze Cardiac: S1, S2+ Abdomen: Soft, BS+ Extremities: Normal ROM, no cyanosis Neuro: Rt facial droop, good strength in all 4 extremities, slightly dysarthric and mildly confused, couldnot perform complex tasks, able to state name, place, time, date and year. Skin: No rash or bruises Fluid Balance (Past 24 Hours): I= 1146 O= 1775 Net 629 Intake & Output 11/12/17 11/13/17 11/14/17 11/15/17 06:59 06:59 06:59 06:59 Intake Total 1146 Output Total 1775 Balance -629 Weight 126 lb 8.725 oz Intake: IV Fluids 734 NS (0.9%) 734 IVPB 314 ABX - CLINDAMYCIN 104 potassium 210 Medicated IV 98 Keppra 98 Oral 0 Output: Joya 1775 Labs: Laboratory Results - last 24 hr 11/13/17 11/13/17 11/14/17 20:10 20:30 06:30 WBC RBC Hgb Hct MCV MCH MCHC RDW Plt Count MPV Neut % (Auto) Lymph % (Auto) Muhlenberg % (Auto) Eos % (Auto) Baso % (Auto) Absolute Neuts (auto) Absolute Lymphs (auto) Absolute Monos (auto) Absolute Eos (auto) Absolute Basos (auto) Absolute Nucleated RBC Nucleated RBC % Sodium 140 Potassium 4.4 Chloride 108 Carbon Dioxide 26 Anion Gap 6 BUN 15 Creatinine 0.80 Est GFR ( Amer) 89.4 Est GFR (Non-Af Amer) 69.6 BUN/Creatinine Ratio 18.8 Glucose 137 H Lactic Acid 2.2 H* Calcium 8.5 L Urine Color Colorless Urine Appearance Clear Urine pH 6.0 Ur Specific Conklin 1.006 L Urine Protein Negative Urine Ketones Negative Urine Blood 2+ H Urine Nitrate Negative Urine Bilirubin Negative Urine Urobilinogen Negative Ur Leukocyte Esterase Negative Urine WBC (Auto) Trace(0-5/hpf) Urine RBC (Auto) 1+(3-5/hpf) H Ur Squamous Epith Cells Present H Urine Bacteria Absent Urine Glucose Negative 11/14/17 06:30 WBC 13.2 H RBC 4.32 Hgb 13.0 Hct 40 MCV 93 MCH 30 MCHC 32 RDW 14 Plt Count 216 MPV 9 Neut % (Auto) 73.3 Lymph % (Auto) 16.9 L Muhlenberg % (Auto) 8.8 Eos % (Auto) 0 Baso % (Auto) 1.0 Absolute Neuts (auto) 9.7 H Absolute Lymphs (auto) 2.2 Absolute Monos (auto) 1.2 H Absolute Eos (auto) 0 Absolute Basos (auto) 0.1 Absolute Nucleated RBC 0 Nucleated RBC % 0 Sodium Potassium Chloride Carbon Dioxide Anion Gap BUN Creatinine Est GFR ( Amer) Est GFR (Non-Af Amer) BUN/Creatinine Ratio Glucose Lactic Acid Calcium Urine Color Urine Appearance Urine pH Ur Specific Conklin Urine Protein Urine Ketones Urine Blood Urine Nitrate Urine Bilirubin Urine Urobilinogen Ur Leukocyte Esterase Urine WBC (Auto) Urine RBC (Auto) Ur Squamous Epith Cells Urine Bacteria Urine Glucose Studies: Chest x-ray: Was personally reviewed, Chronic interstial changes b/l Nutrition: Mecanically soft diet, swallow evaluation pending Impression: 77 y o f with h/o CVA, post CVA epilepsy on Lamotrigine with AMS seizure versus CVA 1. AMS and possible seizure with dysarthria 2. ? CVA 3. A.fib rate controlled 4. COPD/asthma not in exacerbation 5. Lactic acidosis likely sec to seizure Plan: 1. Neuro: Patient is more alert this am, oriented to person, place, time. Has trouble with complex tasks, has rt facial droop, dysarthria and expressive aphasia. Received Ativan and Keppra, continued on Keppra drip. Neurology f/u. c/ w neuro checks q 4 hrs. Aspiration precautions, seizure precautions. CT brain no acute findings. CTA head atherosclerotic changes, no acute bleeding or intracranial stenosis 2. Resp: Has h/o COPD/asthma, stable currently. Was hypoxic yesterday likely sec to fluid overload, will titrate FiO2 as tolerated. Had episode of vomiting while in ED with concern with aspiration. CXR didnot reveal acute findings. On Clindamycin for now. 3. CVS: H/o chronic A.fib, rate controlled, restarted Digoxin and Diltiazem. Will c/w Xarelto. She is also on ASA given CVA 4. GI: Bedside swallow eval showed no evidence of chocking. Pt started on mechanically ground soft diet, will obtain speech and swallow evaluation. Bl sugars slightly elevated, hbA1C is slightly elevated, no h/o DM. Will monitor closely for now 5. ID: Leucocytosis and possible aspiration episode, on Clindamycin. Can d/c tomorrow if no signs of sepsis 6. Renal: Good UO, no electrolyte abnormalities. 7. Musculoskeletal: Moves extremities spontaneously, will c./w bedrest for now, frequent positioning 8. Psycho/social: at bedside and was updated on pts condition 9. Supportive and preventive care as ordered 10. DVT px: Pt on Xarelto. Code status Full code Critical Care Time: 30 min
[2017-11-14] MEDS: Diltiazem CD CAP* 180 MG PO SCH (10:14)
[2017-11-14] MEDS: Digoxin TAB* 0.125 MG PO SCH (10:14)
[2017-11-14] MEDS: Rivaroxaban TAB(*) 15 MG PO SCH (10:50)
[2017-11-14] MEDS: Atorvastatin* 20 MG TAB PO SCH (16:59)
[2017-11-14] MEDS ORDERED: NS 0.9% 1000 ML* 1,000 ML IV SCH (18:30)
[2017-11-14] MEDS ORDERED: Haloperidol INJ IV/IM* 5 MG/ML AMP ONE (19:05)
[2017-11-14] MEDS ORDERED: Haloperidol INJ IV/IM* 5 MG/ML AMP IV SLOW PU PRN (19:14)
[2017-11-14] MEDS ORDERED: LORazepam INJ* 2 MG/ML 1 ML VIAL IV ONE (19:49)
--- NOTE | 2017-11-14 20:26 | RAD ---
HISTORY: Shortness of breath COMPARISONS: November 14, 2017 at 6:02 AM VIEWS: 1: frontal portable view of the chest at 8:15 PM FINDINGS: LINES AND TUBES: None. CARDIOMEDIASTINAL SILHOUETTE: The cardiac silhouette is mildly enlarged. The cardiomediastinal silhouette is otherwise normal for portable technique. PLEURA: The costophrenic angles are sharp. No pleural abnormalities are noted. LUNG PARENCHYMA: There is a mild diffuse reticular pattern with indistinct pulmonary vessels, progressed from the previous examination. ABDOMEN: The upper abdomen is clear. There is no subphrenic gas. BONES AND SOFT TISSUES: Again noted is a proximal left humeral fracture IMPRESSION: CARDIOMEGALY WITH PROGRESSION OF PULMONARY INTERSTITIAL EDEMA
--- NOTE | 2017-11-14 22:27 | CONS ---
CONSULTATION REPORT: DATE OF CONSULT: 11/14/17 PATIENT OF: Dr. Tijerina and Dr. Biswas. Of note, both Dr. Pandey and [facility] were contacted yesterday about the patient. Dr. Pandey did not do an official consult but I thought that [place] had this note consult in the chart from [place] at this point and therefore I am dictating a full consult note on the patient. HISTORY OF PRESENT ILLNESS: She is a 77-year-old woman who was brought by ambulance yesterday afternoon for a staring spell and then going into clonic activity. The patient was brought in as a possible stroke to the emergency room , was also seen to have a witnessed seizure, initiated Ativan. She had a fixed left gaze preference, was nonverbal, and had some right-sided weakness following the seizure. According to Dr. Tijerina, who saw her yesterday compared to today she is much improved. She is well known to Neurology and has seen Dr. Pandey in the past and more recently me in the hospital. I had seen in June 2016 for an acute stroke with left-sided weakness, and she had had prior stroke back in 3 years prior to that, which left her with visual deficits. She has had seizures with her stroke in the past and had been on Keppra and this had been increased. She has been on Xarelto chronically for her atrial fibrillation and stroke, and she has had some progressive memory problems that may be related in part to her vascular disease. PAST MEDICAL HISTORY: She also has hypertension and coronary artery disease. She also has osteoporosis, COPD, and asthma. She is status post left carpal tunnel release and exploratory lap in the past. MEDICATIONS AT HOME: Include, 1. Keppra 500 in the morning 750 at bedtime. 2. Lamotrigine 100 twice a day. 3. Atorvastatin 20 mg at bedtime. 4. Aspirin 81 mg daily. 5. Hydrocerin topically b.i.d. 6. Diltiazem CD 180 q.a.m. 7. Rivaroxaban 15 mg q.a.m. ALLERGIES: She has no known drug allergies. FAMILY HISTORY: Reviewed and noncontributory. SOCIAL HISTORY: She is a former smoker but quit in 1995. She has glasses of wine a day. No illicit drug use. 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 REVIEW OF SYSTEMS: Negative in all 14 spheres other than the HPI except the patient is a poor historian. PHYSICAL EXAM: Temperature 99.5, pulse 109, respirations 25, blood pressure 130 /96. She was alert, she was oriented to place but not to date or time. She was coherent but confused. She could remember; however, her home phone number. She would follow one and sometimes two-step commands. Cranial nerves II through XII were abnormal for a left field cut both eyes with 5-/5. Face is symmetric. Fundi were benign. Rest of the cranial nerves were intact, they were normal. Motor exam revealed left pronator drift with 5-/5 strength in the left side. Reflexes were 1, toes were equivocal on the left, downgoing on the right. She had extinction on the left side to double simultaneous stimulation. Chest: Clear. Cardiovascular: Irregular rate and rhythm. Abdomen: Soft with positive bowel sounds. DIAGNOSTIC STUDIES/LAB DATA: Reviewed her CT scan, which showed both some white matter disease but significantly both areas of encephalomalacia consistent with old stroke both in her right temporoparietal area as well as her left occipital area. Her chest x-ray showed cardiomegaly and chronic interstitial lung disease. Her CTA was done yesterday and showed moderate atherosclerotic changes in the arch and great vessels. It was hard to assess the degree of stenosis in her right internal carotid artery. Labs include a white count of 13.2, hematocrit of 40, platelets 216. Normal INR and PTT. Glucose today is 137, calcium is 8.5. BNP most recently was 285. CMP on admission had an anion gap of 14, lactic acid of 6.1, AST of 69, ALT of 46, LDL of 56. Digoxin 0.2. IMPRESSION: Abeba by her history sounds as if she has recurrent seizures. Her Keppra has been increased to 750 twice a day. There was no Keppra level done before admission. Issues such as patient's compliance at home need to be sorted out as well as possibly other social issues. I tried calling the at home today and did not reach him. She will be getting an MRI scan to see if these seizures were associated with an acute stroke or whether more likely this is secondary to her old stroke. She will also be getting an EEG tomorrow, and she will need followup Keppra levels as an outpatient. She also has confusion today, when I had seen her prior I was concerned about whether her multiple strokes were affecting her mentation acutely in the hospital following with seizures, it is hard to know whether there is ongoing issues with cognitive abilities, but this needs to be followed up on and further assessed unless this is known to her primary care doctors and the family. Thank you for sharing her case, Dr. Biswas. [id number]/[facility] #: [id number] [facility]
[2017-11-15] MEDS: Clindamycin 600 MG IVPREMIX(* 600 MG/50 ML SDV IV SCH ×3 (03:08→18:26)
--- NOTE | 2017-11-15 08:15 | PN ---
Subjective - Subjective Reason for Note: Progress Note History: I have reviewed the electronic hospital record including Ghada Matthews, GIRMA's admitting history and physical, Dr. Kevin Irvin's neurology consultation and Dr. Belle Tijerina's pulmonology consultation. She had a seizure in [facility] and there is a question as to whether she has also had another CVA. So far, the CT and CTA brain are negative. She received IV benzodiazepines and levatiracetam. I saw her as an outpatient 11/05/17 and she was at baseline without any new problems. Her outpatient medication list: atorvastatin 20 mg tablet 1 pill daily Baby Aspirin 81 mg chewable tablet Chew 1 tablet every day by oral route. Cartia XT 180 mg capsule,extended release 1 pill daily digoxin 125 mcg tablet Take 1 tablet every day by oral route. dilTIAZem 30 mg tablet Take 1 tablet 3 times a day by oral route. lamoTRIgine 100 mg tablet take 1 tablet by mouth twice daily levETIRAcetam 500 mg qam and 750 mg qpm tablet 1 pill daily Xarelto 15 mg tablet take 1 tablet by mouth daily NOTE She maintains she has been compliant with her medication. This morning she is not completely oriented: person yes, [facility], Date Dec. Phone call to Kevin Chopra - He states she has been compliant - he has not been monitoring. Alcohol - "as normal - too much" - 3 glasses wine per day, no spirits. This morning she has no chest pain, shortness of breath or palpitations. She denies headache. She thinks her mental faculties are returning to normal. She doesn't think she has any new deficits. She is not coughing/bringing up sputum. She is hungry. 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 History of CVA (cerebrovascular accident) (Chronic) Z86.73 History of hypertension (Chronic) Z86.79 Multiple cerebral infarctions (Chronic) I63.9 Osteoporosis (Chronic) M81.0 Current Medications: Current Medications Acetaminophen (Tylenol Tab*) 650 mg PO Q6H PRN PRN Reason: FEVER/PAIN Atorvastatin Calcium (Lipitor*) 20 mg PO 1700 [facility] Last Admin: 11/14/17 16:59 Dose: 20 mg Digoxin (Lanoxin Tab*) 0.125 mg PO DAILY [facility] Last Admin: 11/14/17 10:14 Dose: 0.125 mg Diltiazem HCl (Cardizem Cd Cap*) 180 mg PO QAM [facility] Last Admin: 11/14/17 10:14 Dose: 180 mg Haloperidol Lactate (Haldol Inj Iv/Im*) 1 mg IV SLOW PU Q4H PRN PRN Reason: AGITATION Levetiracetam 750 mg/ Sodium (Chloride) 107.5 mls @ 430 mls/hr IVPB Q12H [facility] Last Admin: 11/14/17 21:40 Dose: 430 mls/hr Clindamycin HCl/Dextrose (Cleocin 600 Mg Ivpremix(*) Sdv) 600 mg in 50 mls @ 100 mls/hr IV Q8H [facility] Last Admin: 11/15/17 03:08 Dose: 100 mls/hr Sodium Chloride (Ns 0.9% 1000 Ml*) 1,000 mls @ 50 mls/hr IV .PER RATE [facility] Last Admin: 11/14/17 18:35 Dose: 50 mls/hr Lorazepam (Ativan Inj*) 2 mg IV PUSH Q10M PRN PRN Reason: seizure Lorazepam (Ativan Inj*) 0 - 3 mg IV PUSH .PER [facility] PROTOCOL NIC PRN Reason: Protocol Last Admin: 11/14/17 16:58 Dose: 1.5 mg Metoprolol Tartrate (Lopressor Iv*) 5 mg IV Q6H PRN PRN Reason: HEART RATE/PULSE GREATER THAN: Last Admin: 11/14/17 19:17 Dose: 5 mg Rivaroxaban (Xarelto(*)) 15 mg PO QAM [facility] Last Admin: 11/14/17 10:50 Dose: 15 mg Home Medications: Home Medications Medication Instructions Recorded Confirmed Type levETIRAcetam TAB* [Keppra TAB*] 750 mg PO BEDTIME tab 07/23/16 11/13/17 Rx Acetaminophen TAB* [Tylenol TAB*] 650 mg PO Q6H PRN #0 tab 07/24/16 11/13/17 Rx Atorvastatin* [Lipitor 20 MG*] 20 mg PO 1700 #30 tab 07/24/16 11/13/17 Rx Moisturizing CREAM* [Hydrocerin*] 1 applic TOPICAL BID jar 07/24/16 11/13/17 Rx Aspirin EC Low Dose* [Ecotrin EC 81 mg PO QAM 02/05/17 11/13/17 History Low Dose 81 MG*] Diltiazem CD CAP* [Cardizem CD 180 mg PO QAM 02/05/17 11/13/17 History CAP*] Rivaroxaban TAB(*) [Xarelto 15 15 mg PO QAM 02/05/17 11/13/17 History mg(*)] lamoTRIgine TAB(*) [Lamictal 100 mg PO BID 02/05/17 11/13/17 History TAB(*)] levETIRAcetam TAB* [Keppra TAB*] 500 mg PO QAM 02/05/17 11/13/17 History Digoxin TAB* [Lanoxin TAB*] 0.125 mg PO DAILY 11/14/17 11/14/17 History Allergies: Allergies Allergy/AdvReac Type Severity Reaction Status Date / Time No Known Allergies Allergy Verified 02/12/17 08:03 Objective - Vital Signs Vital Signs: Vital Signs 11/14/17 11/14/17 11/14/17 08:30 09:00 10:00 Temperature Pulse Rate 105 115 109 Respiratory 24 34 27 Rate Blood Pressure 139/96 157/116 137/105 (mmHg) O2 Sat by Pulse 98 92 96 Oximetry 11/14/17 11/14/17 11/14/17 10:01 10:14 10:30 Temperature Pulse Rate 116 109 104 Respiratory 29 15 Rate Blood Pressure 131/98 (mmHg) O2 Sat by Pulse 95 91 Oximetry 11/14/17 11/14/17 11/14/17 11:00 11:01 11:30 Temperature Pulse Rate 103 107 113 Respiratory 28 23 20 Rate Blood Pressure 142/109 117/96 (mmHg) O2 Sat by Pulse 96 95 94 Oximetry 11/14/17 11/14/17 11/14/17 12:00 12:01 12:13 Temperature Pulse Rate 132 105 Respiratory 26 29 25 Rate Blood Pressure 142/87 130/96 (mmHg) O2 Sat by Pulse 94 92 Oximetry 11/14/17 11/14/17 11/14/17 13:00 13:01 13:30 Temperature Pulse Rate 126 114 110 Respiratory 21 23 21 Rate Blood Pressure 146/91 131/93 (mmHg) O2 Sat by Pulse 98 98 90 Oximetry 11/14/17 11/14/17 11/14/17 14:00 14:30 15:00 Temperature Pulse Rate 94 102 122 Respiratory 24 25 34 Rate Blood Pressure 141/110 139/96 (mmHg) O2 Sat by Pulse 96 98 95 Oximetry 11/14/17 11/14/17 11/14/17 15:09 15:30 16:00 Temperature Pulse Rate 104 95 109 Respiratory 34 22 20 Rate Blood Pressure 140/104 147/101 (mmHg) O2 Sat by Pulse 96 97 70 Oximetry 11/14/17 11/14/17 11/14/17 16:01 16:30 16:58 Temperature Pulse Rate 95 121 Respiratory 34 41 34 Rate Blood Pressure 129/90 154/100 (mmHg) O2 Sat by Pulse 92 93 Oximetry 11/14/17 11/14/17 11/14/17 17:00 17:07 17:30 Temperature Pulse Rate 116 129 Respiratory 36 36 29 Rate Blood Pressure 138/97 158/92 (mmHg) O2 Sat by Pulse 91 94 Oximetry 11/14/17 11/14/17 11/14/17 18:00 18:30 19:00 Temperature Pulse Rate 107 128 Respiratory 22 29 30 Rate Blood Pressure 119/93 144/92 141/104 (mmHg) O2 Sat by Pulse 80 89 Oximetry 11/14/17 11/14/17 11/14/17 19:31 19:58 20:00 Temperature 100.9 F Pulse Rate 109 132 Respiratory 21 30 30 Rate Blood Pressure 125/96 (mmHg) O2 Sat by Pulse 88 96 Oximetry 11/14/17 11/14/17 11/14/17 20:01 20:30 20:59 Temperature 99.7 F 101.5 F Pulse Rate 107 102 Respiratory 32 37 26 Rate Blood Pressure 151/118 115/78 (mmHg) O2 Sat by Pulse 92 92 Oximetry 11/14/17 11/14/17 11/14/17 21:00 21:01 21:30 Temperature 100.9 F 100.8 F 100.8 F Pulse Rate 100 98 93 Respiratory 34 37 29 Rate Blood Pressure 116/86 109/78 (mmHg) O2 Sat by Pulse 92 87 93 Oximetry 11/14/17 11/14/17 11/14/17 21:56 22:00 22:30 Temperature 100.2 F 100.4 F Pulse Rate 90 95 Respiratory 26 29 33 Rate Blood Pressure 116/82 123/76 (mmHg) O2 Sat by Pulse 93 94 Oximetry 11/14/17 11/14/17 11/14/17 23:00 23:01 23:30 Temperature 100.4 F 100.4 F 100.0 F Pulse Rate 105 95 99 Respiratory 30 30 27 Rate Blood Pressure 121/86 112/72 (mmHg) O2 Sat by Pulse 95 95 95 Oximetry 11/15/17 11/15/17 11/15/17 00:00 00:01 00:03 Temperature 99.7 F 99.9 F 99.9 F Pulse Rate 94 106 102 Respiratory 28 25 25 Rate Blood Pressure 120/68 (mmHg) O2 Sat by Pulse 95 94 94 Oximetry 11/15/17 11/15/17 11/15/17 00:30 00:54 01:00 Temperature 99.5 F 99.3 F Pulse Rate 93 101 Respiratory 26 26 24 Rate Blood Pressure 120/80 108/76 (mmHg) O2 Sat by Pulse 95 95 Oximetry 11/15/17 11/15/17 11/15/17 01:30 01:58 02:00 Temperature 99.3 F 99.0 F Pulse Rate 97 93 Respiratory 28 22 25 Rate Blood Pressure 125/86 117/85 (mmHg) O2 Sat by Pulse 96 95 Oximetry 11/15/17 11/15/17 11/15/17 02:01 02:30 03:00 Temperature 99.0 F 99.0 F 98.6 F Pulse Rate 94 95 105 Respiratory 24 24 24 Rate Blood Pressure 107/72 117/75 (mmHg) O2 Sat by Pulse 94 94 94 Oximetry 11/15/17 11/15/17 11/15/17 03:01 03:30 04:00 Temperature 98.6 F 98.4 F 98.4 F Pulse Rate 98 101 95 Respiratory 25 23 28 Rate Blood Pressure 121/75 120/80 (mmHg) O2 Sat by Pulse 94 95 93 Oximetry 11/15/17 11/15/17 11/15/17 04:01 04:30 05:00 Temperature 98.4 F 98.4 F 98.6 F Pulse Rate 87 97 91 Respiratory 39 25 22 Rate Blood Pressure 108/80 113/77 (mmHg) O2 Sat by Pulse 95 95 95 Oximetry 11/15/17 11/15/17 11/15/17 05:01 05:30 06:00 Temperature 98.6 F 98.4 F 98.4 F Pulse Rate 91 90 91 Respiratory 23 23 25 Rate Blood Pressure 110/72 120/92 (mmHg) O2 Sat by Pulse 95 96 86 Oximetry 11/15/17 11/15/17 11/15/17 06:01 06:30 07:00 Temperature 98.4 F 98.6 F 99.0 F Pulse Rate 110 94 88 Respiratory 23 27 26 Rate Blood Pressure 127/84 120/87 (mmHg) O2 Sat by Pulse 86 95 96 Oximetry - Intake and Output Intake and Output: Intake & Output 11/12/17 11/13/17 11/14/17 11/15/17 11:59 11:59 11:59 11:59 Intake Total 1146 2256 Output Total 1775 500 Balance -629 1756 Weight 126 lb 8.725 oz 127 lb 10.362 oz Intake: IV Fluids 734 693 NS (0.9%) 734 693 IVPB 314 613 ABX - CLINDAMYCIN 104 205 NS (0.9%) 408 potassium 210 Medicated IV 98 Keppra 98 Oral 0 950 Output: Joya 1775 500 ADLs: Meal Record Start: 11/13/17 18: 51 Freq: 09,13,18 Status: Active Protocol: Document 11/14/17 14:14 [id number] (Rec: 11/14/17 14:15 [id number] ICU-M26) Document 11/14/17 18:00 [id number] (Rec: 11/14/17 18:27 [id number] ICU-C16) Intake and Output Start: 11/13/17 18: 51 Freq: 06,14,22 Status: Active Protocol: Document 11/13/17 21:38 [id number] (Rec: 11/13/17 21:39 [id number] ICU-M01) Document 11/14/17 03:04 [id number] (Rec: 11/14/17 03:06 [id number] ICU-C16) Document 11/14/17 06:30 [id number] (Rec: 11/14/17 06:30 [id number] ICU-M01) Document 11/14/17 14:00 [id number] (Rec: 11/14/17 14:08 [id number] ICU-C20) Document 11/14/17 17:43 [id number] (Rec: 11/14/17 17:43 [id number] ICU-C16) Document 11/14/17 17:44 [id number] (Rec: 11/14/17 17:44 [id number] ICU-C16) Document 11/14/17 17:49 [id number] (Rec: 11/14/17 17:49 [id number] ICU-C16) Document 11/14/17 22:00 [id number] (Rec: 11/14/17 22:03 [id number] ICU-C10) Document 11/15/17 06:00 [id number] (Rec: 11/15/17 06:38 [id number] ICU-C12) - Physical Exam General Physical Exam Comment: warm, well perfused/hydrated and hemodynamically stable. She is able to read the [place] accurately General: No Cyanosis, No Anemia, No Jaundice, No Clubbing Eye Exam: bilateral: EOMI Skin: Normal: Rash Lungs and Chest: Yes: Chest Expansion Full, Chest Expansion Symetrica, Percussion Note Resonant, Vessicular Breath Sounds. No: Crackles, Wheezes, Respiratory Distress, Use of Accessory Muscles Heart Rate and Rhythm: Irregular Additional Cardiovascular: Yes: Normal Heart Sounds. No: Heart Murmur, Pedal Edema Abdominal Exam: Yes: Soft, Bowel Sounds Present. No: Distention, Abdominal Mass , Hepatomegaly, Splenomegaly - Extremities Cranial Nerves II-XII Intact: Yes - slight left sided upper motor neuron facial droop Limbs: Normal Power, Normal Tone, Normal Coordination - Neuro Orientation: Person Psychiatric: Normal Speech: Slurred Speech - mild Results - Results Lab Results: Laboratory Tests 11/13/17 11/13/17 11/14/17 15:42 15:42 06:30 WBC 13.2 H Hgb 13.0 Hct 40 Plt Count 216 Neut % (Auto) 73.3 B-Natriuretic Peptide 285 H Digoxin 0.2 L Radiology Results: Patient Name: ABEBA CHOPRA Medical Record#: [id number] Ordering Physician: José Luis Rolle MD Acct.#: [id number] : 1940 Age: 77 Sex: F Location: EMERGENCY DEPARTMENT Exam Date: 11/13/17 1523 ADM Status: REG ER Order Information: CT BRAIN WO Accession Number: [id number] CPT: 55610 INDICATION: Neurologic change. Code linton. COMPARISON: CT brain July 17, 2016 TECHNIQUE: Noncontrast axial source images were acquired from the skull base to the vertex. FINDINGS: Ventricles/sulci: There is cortical atrophy with compensatory dilatation of the CSF spaces. Brain parenchyma: There is periventricular and subcortical white matter change compatible with chronic ischemia. There is an old left occipital infarct with resulting encephalomalacia, unchanged Intracranial hemorrhage:None. Extra-axial spaces: There are no abnormal extra axial fluid collections. Suspect tiny calcified meningioma left middle cranial fossa, unchanged. Calvarium: There is no calvarial fracture or other calvarial abnormality. Scalp: There is no evidence of scalp or extracalvarial soft tissue abnormality. Paranasal sinuses/mastoid: The paranasal sinuses and mastoid air cells are clear. Other: None. IMPRESSION: 1. No acute intracranial findings 2. Cortical atrophy with chronic microvascular ischemic change. 3. Old left occipital infarct, unchanged. 4. Tiny, calcified, left middle cranial fossa meningioma, unchanged <Electronically signed by José Luis Paul MD in [place]> 11/13/17 1543 Dictated By: José Luis Paul MD Dictated Date/Time: 11/13/17 1543 Transcribed Date/Time: 11/13/17 1530 Copy to: CC:Jigar Biswas MD; José Luis Rolle MD Imaging - [facility] Imaging - [facility] Imaging - [facility] [id number] [place] [id number] 1 of 2 Patient Name: ABEBA CHOPRA Medical Record#: [id number] Ordering Physician: [id number] 1940 Age: 77 Sex: F Location: EMERGENCY DEPARTMENT Exam Date: 11/13/171641 ADM Status: REG ER Order Information: CTA HEAD/NECK Accession Number: [id number] CPT: 79516 INDICATION: Neurologic changes. Code linton. Pulmonary edema. COMPARISON: CT brain same date; chest x-ray same date; MRA head July 15, 2016 ; CTA head and neck July 21, 2013; carotid ultrasound July 15, 2016 TECHNIQUE: Axial source images were acquired with coronal and sagittal reconstructions. CT angiographic technique was utilized with injection of 80 mL Omnipaque 350. FINDINGS: Aortic arch: There are moderate atherosclerotic changes of the arch or the great vessels arising from the arch. There is elongation of the ascending thoracic aorta with tortuosity of the great vessels. No significant origin stenoses are present. Right carotid: The common carotid artery, carotid bifurcation, extracranial portions of the internal carotid artery, carotid artery at the skull base, carotid siphon, and carotid termination appear patent. There is extensive calcific plaque formation the origin of the right internal carotid artery and there is some motion artifact which limits evaluation of the proximal ICA near the bifurcation. There is a stenosis which is likely in the 50-70% diameter range. This can be correlated with carotid ultrasonography. There are moderate intimal calcifications of the carotid siphon. Left carotid:The common carotid artery, carotid bifurcation, extracranial portions of the internal carotid artery, carotid artery at the skull base, carotid siphon, and carotid termination appear widely patent. There are mild intimal calcifications at the level of the origin of the left internal carotid artery. There are moderate calcifications involving the carotid siphon. Right middle and anterior cerebral arteries: There are no CT angiographic abnormalities of the middle or anterior cerebral arteries. Left middle and anterior cerebral arteries: There are no CT angiographic abnormalities of the middle or anterior cerebral arteries Right vertebral: The CT angiographic appearance of the vertebral artery is very diminutive and difficult to trace its confluence with the basilar artery. Left vertebral: The left vertebral artery shows wide patency and is the dominant vessel. Basilar artery: The basilar artery and basilar tip appear widely patent. There is dolichoectasia with intimal calcifications.. Posterior cerebral arteries: The right posterior cerebral artery is very diminutive. The left posterior cerebral artery appears normal in caliber and course [place]: The CT angiographic appearance of the [place] is normal. Source images show no evidence of mass or adenopathy within the neck. There are no focal brain parenchymal abnormalities or abnormal areas of enhancement. Limited views of the upper lung mitchell show interstitial and alveolar change most prominent in the right upper lobe. Chest x-ray shows pulmonary edema. IMPRESSION: 1. Moderate atherosclerotic changes of the arch and great vessels arising from the arch but no evidence of a significant proximal stenosis. 2. Limited evaluation of the origin of the right internal carotid artery due to the presence of a calcific plaque and mild motion. The degree of stenosis is difficult to estimate and should be correlated with carotid sonography. 1 of 2 Patient Name: ABEBA CHOPRA Medical Record#: [id number] Ordering Physician: Chai Hugo MD Acct.#: [id number] : 1940 Age: 77 Sex: F Location: INTENSIVE CARE UNIT Exam Date: 11/14/172002 ADM Status: ADM IN Order Information: CHEST AP PORTABLE Accession Number: [id number] CPT: 60131 HISTORY: Shortness of breath COMPARISONS: November 14, 2017 at 6:02 AM VIEWS: 1: frontal portable view of the chest at 8:15 PM FINDINGS: LINES AND TUBES: None. CARDIOMEDIASTINAL SILHOUETTE: The cardiac silhouette is mildly enlarged. The cardiomediastinal silhouette is otherwise normal for portable technique. PLEURA: The costophrenic angles are sharp. No pleural abnormalities are noted. LUNG PARENCHYMA: There is a mild diffuse reticular pattern with indistinct pulmonary vessels, progressed from the previous examination. ABDOMEN: The upper abdomen is clear. There is no subphrenic gas. BONES AND SOFT TISSUES: Again noted is a proximal left humeral fracture IMPRESSION: CARDIOMEGALY WITH PROGRESSION OF PULMONARY INTERSTITIAL EDEMA <Electronically signed by Serafin Paige MD in [place]> 11/14/172021 Dictated By: Serafin Paige MD Dictated Date/Time: 11/14/172021 Transcribed Date/Time: 11/14/172020 Copy to: CC:Jigar Biswas MD; Chai Hugo MD; Edgar Pandey MD; Belle Tijerina MD; Gallo Zaldivar MD Imaging - [facility] Imaging - [facility] Imaging - [facility] [id number] [place], [place] [id number] [place] [id number] [place] [id number] ph [phone]) ph [phone]) ph ([phone]) 1 of 1 EKG Report: EKG 11/13/17 15:37 Rate 130 QTc 486 QRS axis 31 Rapid atrial fibrillation. Some lateral repolarization changes - mild. 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 She has some remaining signs of either being post-ictal or more likely from the benzodiazepines. I can' t find any new focal neurological deficits. The ED measured both levatiracetam and lamotrivine levels - I think these will be revealing as she has a history of non-compliance (she herself states she hasn't missed any medications recently ). Volume overload - her lungs appear clear this morning - there are some changes on the CXR and her BNP was elevated. COPD/Asthma - see Dr. Tijerina's note. She thought she had volume overload, and that her COPD/Asthma were stable. She was concerned about aspiration after an episode of vomiting. I will maintain clindamycin another 24 hours. 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 I spoke to Abeba and her Kvein on the phone. I will continue to watch her overnight for further seizure activity. I will also try to wean her off the O2. They agree with this plan.
[2017-11-15] MEDS ORDERED: Furosemide TAB* 20 MG PO ONE (08:42)
[2017-11-15] MEDS: levETIRAcetam IV* 750 MG in NS 0.9% 100 ML* 100 ML IVPB SCH ×2 (09:12→20:12)
[2017-11-15] MEDS: Rivaroxaban TAB(*) 15 MG PO SCH (09:14)
[2017-11-15] MEDS: Diltiazem CD CAP* 180 MG PO SCH (09:14)
[2017-11-15] MEDS: Digoxin TAB* 0.125 MG PO SCH (09:14)
--- NOTE | 2017-11-15 09:48 | PN ---
Progress Note - Progress Note Date of Service: 11/15/17 Note: Progress Note Critical Care 24 hour events/significant events: -admitted yesterday; overnight stable; no events -remains on hiflow cannula 30% 20lpm; sats 94-95% rr 20s -able to answer questions, eating modified diet; states no weakness; no seizures overnight -for MRI today Tele: rapid afib Vitals: Vital Signs Temp 99.9 F 11/15/17 09:30 Pulse 109 11/15/17 09:14 Resp 42 11/15/17 09:30 BP 131/90 11/15/17 09:30 Pulse Ox 90 11/15/17 09:00 Intake & Output 11/14/17 11/15/17 11/15/17 18:59 06:59 18:59 Intake Total 1140 1116 300 Output Total 225 275 Balance 915 841 300 Weight 127 lb 10.362 oz Intake: IV Fluids 693 NS (0.9%) 693 IVPB 190 423 ABX - CLINDAMYCIN 55 150 NS (0.9%) 135 273 Oral 950 300 Output: Garcia 225 275 O2/Vent: hiflow 30% 30lpm Infusions: NS (discontinued) Medications: Acetaminophen (Tylenol Tab*) 650 mg PO Q6H PRN PRN Reason: FEVER/PAIN Aspirin (Aspirin Low Dose Tab*) 81 mg PO DAILY [facility] Atorvastatin Calcium (Lipitor*) 20 mg PO 1700 [facility] Last Admin: 11/14/17 16:59 Dose: 20 mg Digoxin (Lanoxin Tab*) 0.125 mg PO DAILY [facility] Last Admin: 11/15/17 09:14 Dose: 0.125 mg Diltiazem HCl (Cardizem Cd Cap*) 180 mg PO QAM [facility] Last Admin: 11/15/17 09:14 Dose: 180 mg Levetiracetam 750 mg/ Sodium (Chloride) 107.5 mls @ 430 mls/hr IVPB Q12H [facility] Last Admin: 11/15/17 09:12 Dose: 430 mls/hr Clindamycin HCl/Dextrose (Cleocin 600 Mg Ivpremix(*) Sdv) 600 mg in 50 mls @ 100 mls/hr IV Q8H [facility] Last Admin: 11/15/17 03:08 Dose: 100 mls/hr Lorazepam (Ativan Inj*) 2 mg IV PUSH Q10M PRN PRN Reason: seizure Lorazepam (Ativan Inj*) 0 - 3 mg IV PUSH .PER [facility] PROTOCOL [facility] PRN Reason: Protocol Last Admin: 11/14/17 16:58 Dose: 1.5 mg Rivaroxaban (Xarelto(*)) 15 mg PO QAM [facility] Last Admin: 11/15/17 09:14 Dose: 15 mg Physical Exam: General: awake, alert, no distress, no diaphoresis Head: normocephalic, atraumatic HEENT: no pallor, no icterus, moist mucous membranes Neck: soft, supple, no jvd, no stridor CVS: tachy, irregular, no murmur Resp: bilateral air entry, no rhales, no wheeze, no rhonchi, no acc muscle use Abdomen: soft, nontender, nondistended, bowel sounds present Ext: pulses+, warm, no edema Skin: intact, no breakdown, no dryness Neuro: awake, alert, confused at times it seems, oriented x2-3, no focal deficit in ext with strength 5/5, right lower facial droop mild noted; no slurred speech today Labs: 11/13/17 11/13/17 11/13/17 15:42 15:42 15:42 WBC 11.0 H RBC 4.50 Hgb 13.6 Hct 42 MCV 93 MCH 30 MCHC 33 RDW 14 Plt Count 236 MPV 9 Neut % (Auto) 66.7 Lymph % (Auto) 22.4 L Hart % (Auto) 8.2 Eos % (Auto) 2.1 Baso % (Auto) 0.6 Absolute Neuts (auto) 7.3 Absolute Lymphs (auto) 2.5 Absolute Monos (auto) 0.9 H Absolute Eos (auto) 0.2 Absolute Basos (auto) 0.1 Absolute Nucleated RBC 0.01 Nucleated RBC % 0.1 INR (Anticoag Therapy) 1.01 APTT 26.1 Sodium 138 Potassium 3.6 Chloride 105 Carbon Dioxide 19 L Anion Gap 14 H BUN 15 Creatinine 0.85 Est GFR ( Amer) 83.4 Est GFR (Non-Af Amer) 64.9 BUN/Creatinine Ratio 17.6 Glucose 184 H POC Glucose (mg/dL) Hemoglobin A1c Lactic Acid Calcium 8.8 Magnesium 2.0 Total Bilirubin 0.70 AST 69 H ALT 46 Alkaline Phosphatase 106 H Troponin I 0.01 B-Natriuretic Peptide Total Protein 6.8 Albumin 4.0 Globulin 2.8 Albumin/Globulin Ratio 1.4 Triglycerides 121 Cholesterol 164 LDL Cholesterol 56 HDL Cholesterol 83.8 Urine Color Urine Appearance Urine pH Ur Specific Otto Urine Protein Urine Ketones Urine Blood Urine Nitrate Urine Bilirubin Urine Urobilinogen Ur Leukocyte Esterase Urine WBC (Auto) Urine RBC (Auto) Ur Squamous Epith Cells Urine Bacteria Urine Glucose Digoxin 0.2 L Blood Type Antibody Screen 11/13/17 11/13/17 11/13/17 15:42 15:42 15:42 WBC RBC Hgb Hct MCV MCH MCHC RDW Plt Count MPV Neut % (Auto) Lymph % (Auto) Hart % (Auto) Eos % (Auto) Baso % (Auto) Absolute Neuts (auto) Absolute Lymphs (auto) Absolute Monos (auto) Absolute Eos (auto) Absolute Basos (auto) Absolute Nucleated RBC Nucleated RBC % INR (Anticoag Therapy) APTT Sodium Potassium Chloride Carbon Dioxide Anion Gap BUN Creatinine Est GFR ( Amer) Est GFR (Non-Af Amer) BUN/Creatinine Ratio Glucose POC Glucose (mg/dL) Hemoglobin A1c Lactic Acid 6.1 H* Calcium Magnesium Total Bilirubin AST ALT Alkaline Phosphatase Troponin I B-Natriuretic Peptide 285 H Total Protein Albumin Globulin Albumin/Globulin Ratio Triglycerides Cholesterol LDL Cholesterol HDL Cholesterol Urine Color Urine Appearance Urine pH Ur Specific Otto Urine Protein Urine Ketones Urine Blood Urine Nitrate Urine Bilirubin Urine Urobilinogen Ur Leukocyte Esterase Urine WBC (Auto) Urine RBC (Auto) Ur Squamous Epith Cells Urine Bacteria Urine Glucose Digoxin Blood Type O Positive Antibody Screen Negative 11/13/17 11/13/17 11/13/17 15:42 16:01 20:10 WBC RBC Hgb Hct MCV MCH MCHC RDW Plt Count MPV Neut % (Auto) Lymph % (Auto) Hart % (Auto) Eos % (Auto) Baso % (Auto) Absolute Neuts (auto) Absolute Lymphs (auto) Absolute Monos (auto) Absolute Eos (auto) Absolute Basos (auto) Absolute Nucleated RBC Nucleated RBC % INR (Anticoag Therapy) APTT Sodium Potassium Chloride Carbon Dioxide Anion Gap BUN Creatinine Est GFR ( Amer) Est GFR (Non-Af Amer) BUN/Creatinine Ratio Glucose POC Glucose (mg/dL) 186 H Hemoglobin A1c 5.7 H Lactic Acid 2.2 H* Calcium Magnesium Total Bilirubin AST ALT Alkaline Phosphatase Troponin I B-Natriuretic Peptide Total Protein Albumin Globulin Albumin/Globulin Ratio Triglycerides Cholesterol LDL Cholesterol HDL Cholesterol Urine Color Urine Appearance Urine pH Ur Specific Otto Urine Protein Urine Ketones Urine Blood Urine Nitrate Urine Bilirubin Urine Urobilinogen Ur Leukocyte Esterase Urine WBC (Auto) Urine RBC (Auto) Ur Squamous Epith Cells Urine Bacteria Urine Glucose Digoxin Blood Type Antibody Screen 11/13/17 11/14/17 11/14/17 20:30 06:30 06:30 WBC 13.2 H RBC 4.32 Hgb 13.0 Hct 40 MCV 93 MCH 30 MCHC 32 RDW 14 Plt Count 216 MPV 9 Neut % (Auto) 73.3 Lymph % (Auto) 16.9 L Hart % (Auto) 8.8 Eos % (Auto) 0 Baso % (Auto) 1.0 Absolute Neuts (auto) 9.7 H Absolute Lymphs (auto) 2.2 Absolute Monos (auto) 1.2 H Absolute Eos (auto) 0 Absolute Basos (auto) 0.1 Absolute Nucleated RBC 0 Nucleated RBC % 0 INR (Anticoag Therapy) APTT Sodium 140 Potassium 4.4 Chloride 108 Carbon Dioxide 26 Anion Gap 6 BUN 15 Creatinine 0.80 Est GFR ( Amer) 89.4 Est GFR (Non-Af Amer) 69.6 BUN/Creatinine Ratio 18.8 Glucose 137 H POC Glucose (mg/dL) Hemoglobin A1c Lactic Acid Calcium 8.5 L Magnesium Total Bilirubin AST ALT Alkaline Phosphatase Troponin I B-Natriuretic Peptide Total Protein Albumin Globulin Albumin/Globulin Ratio Triglycerides Cholesterol LDL Cholesterol HDL Cholesterol Urine Color Colorless Urine Appearance Clear Urine pH 6.0 Ur Specific Otto 1.006 L Urine Protein Negative Urine Ketones Negative Urine Blood 2+ H Urine Nitrate Negative Urine Bilirubin Negative Urine Urobilinogen Negative Ur Leukocyte Esterase Negative Urine WBC (Auto) Trace(0-5/hpf) Urine RBC (Auto) 1+(3-5/hpf) H Ur Squamous Epith Cells Present H Urine Bacteria Absent Urine Glucose Negative Digoxin Blood Type Antibody Screen Imaging: Cxr 11/14 pulm congestion+ bilateral, maybe increased in upper lobes Right more. ct brain and cta head 11/13 - no acute findings; old left occ cva; no sig obstr on cta brain Assessment: 77 y F pmhx of Afib on Xarelto, h/o CVA, h/o seizure disorder; admitted after syncope and seizure episode. Noted some dysarthria and right facial droop, stroke code but no tpa due to being on AC. CT negative. Possibly some aspiration during the event. -Seizure -r/o cva vs todds paralysis -Possible aspiration pneumonitis -Pulmonary Congestion -Rapid Afib Plan: Neuro- awake/alert, minimal right facial droop. Swallow eval again, progress diet as tolerated. Aspiration prec. EEG ongoing now. PT/OT. Maintain passive hypertension for now. Cont Xarelto for AC for Afib. For MRI brain today. Can change neurochecks to q4h. start asa 81mg po daily, re-eval after MRI if no CVA. Cont Keppra. Will let neuro determine if pt needs lamotrigine restarted. CVS- rate controlled afib, cont Cardizem po 30mg. cont dig. Cont xarelto po for AC. No bleeding noted. Noted pulm congestion on CXR and she is hiflow. Lasix started by primary team. Maintain permissive hypertension but keep rate controlled afib. Resp- on hiflow. Can wean to nasal cannular. Diuretics for pulm congestion. On clindamycin, no focal infiltrate noted but may better appreciate once diuresed. Low grade temp 99.9 only, wbc midly up. Will let clinda continue one more day. No sputum/cough ID- tmax 99.9, wbc 13. On Clindamycin for aspiration suspicion. No sputum. Blood cultures neg. from 11/13. Re-eval tomorrow, if improved could prob discontinue if repeat cxr improved. GI- swallow eval. Progress diet as tolerated. Renal- Cr normal. Discontinue IVF now. K normal, no acidosis. Discontinue garcia in 24 hours. Heme- hg stable, plt okay. On Xarelto for AC. No bleeding. Not on asa. Start asa for now. Endo- fingersticks as needed Musculsk- pt/ot, oob to chair. Wounds- none Nutrition- mechanical ground, regular DVT prophylaxis: none GI prophylaxis: none Central Line: - Arterial Line: - Garcia Cathetor: yes Disposition: for MRI today; stable for monitored bed with continued neuro checks. Hospitalist service to follow, CC to sign off. Code Status: full code Kendell Underwood MD [employer] (Electronically Signed)
--- NOTE | 2017-11-15 10:24 | PN ---
PROGRESS NOTE: CURRENT LOCATION: ICU room 2, bed 1. DATE OF ADMISSION: 11/13/17 DATE OF PROGRESS NOTE: 11/15/17 HISTORY: The patient is currently seen by Dr. Tijerina and Dr. Biswas. The patient was seen by Dr. Kevin Irvin yesterday on 11/14/17. I did review his note. She was brought into the hospital by ambulance on the day of admission with a starring spell with some colonic activity. There was some concern for stroke as well as seizure and given Ativan at the time. She also had a fixed left gaze preference, was nonverbal, and had some right-sided weakness following this seizure. She has a history of seizures and is on Keppra. She also has a history of a right homonymous hemianopsia, status post a stroke in the past. CT scan on admission showed old stroke in a right temporoparietal area as well as her left occipital area. CTA of the head and neck was done which showed some atherosclerotic changes in the arching great vessels and indeterminate stenosis of the right internal carotid artery. Her Keppra was increased yesterday to 750 mg twice a day from 500 mg in the morning and 750 mg at bedtime. She is also on Lamictal 100 mg twice a day. She is also on Xarelto for her history of atrial fibrillation and stroke and has had some memory issues as well. Overnight, she did have some confusion received some Haldol and Ativan, was somnolent throughout the night, remains in atrial fibrillation. No other seizure activity reported and has been stable otherwise. This morning she is sleeping, but awakens easily this morning, interactive and seems to have had some improvement since her admission. She did have an episode of RVR last night. Metoprolol was given. She also has a history of pulmonary disease with some tachypnea. CURRENT MEDICATIONS: Include: 1. Tylenol p.r.n. 2. Lipitor 20 mg p.o. daily. 3. Cleocin 600 mg. 4. Digoxin 0.125 mg. 5. Diltiazem 180 mg q.a.m. 6. Haldol 1 mg IV q. 4 hours p.r.n. agitation. 7. Keppra 750 mg twice a day. 8. Lorazepam 10 mg IV q. 10 minutes p.r.n. seizures. 9. Ativan 0 to 3 mg IV push per [facility] protocol. 10. Metoprolol 5 mg IV q. 6 hours p.r.n. for tachycardia. 11. Xarelto 50 mg p.o. q.a.m. OBJECTIVE: Vital Signs: Temperature of 99 this morning, heart rate of 80, respiratory rate of 26, O2 sat of 96, blood pressure of 120/92, 127/84 to 120/ 87. In general, she is a well-nourished and well-developed female. She is lying in her hospital bed. She is sleeping, but awakens; pleasant, well-dressed , and well groomed. HEENT: She is normocephalic, atraumatic. Sclerae are anicteric. Mucous membranes are moist. Oropharynx is clear. Neck is supple. No thyromegaly or carotid bruits. Chest: Clear to auscultation bilaterally. Cardiovascular: Irregularly irregular and normal rate. Abdomen: Nontender. Extremities: No clubbing, cyanosis, or edema noted. On neurologic examination , she is awake and alert. She is oriented to person, to [facility]. She thought she was in [place]. She did not know the date. She thought it was November. Her speech is fluent. There is no significant dysarthria. Cranial Nerves: She has a right homonymous hemianopsia. Her face appears symmetric. Tongue is midline. Sensation is intact. Palate raises symmetrically. Remainder of cranial nerves are intact. She is spontaneously moves all extremities antigravity. Very subtle drift on the left side. Strength was 5/5 throughout. Reflexes were 2+ in the upper extremities and 1+ at the left patella, 2+ at the right patella, equivocal Babinski's bilaterally. She had some extinction on the left side to double simultaneous stimulation. Studies as noted above. ASSESSMENT AND PLAN: Ms. Patel is a 77-year-old female who presented to the hospital with a history of strokes, some residual left-sided weakness with a right homonymous hemianopsia, which is chronic in nature, history of seizures on Keppra 500 mg in the morning, 750 mg at night. Appears to be a breakthrough seizure. Her Keppra was increased to 750 p.o. b.i.d. She has had no further seizure activity, but she has had some confusion during her hospitalization, received Ativan and Haldol last night with some improvement. This morning appears to be more alert and oriented, but remains confused and somewhat disoriented. No other focal findings that are new on examination. The plan today is to get an MRI of the brain as well as an EEG. We will follow up her Keppra level, which apparently was done prior to her increasing dose. There was some concern with Dr. Irvin that there may have been some compliance issues. We will follow this up. With a history of stroke, I would continue her Xarelto, continue secondary stroke risk factor reduction. She is on statin , history of atrial fibrillation in the setting of stroke, she is on Xarelto, history of COPD, which is stable, history of some possible memory issues, possibly vascular dementia. This is something that can be worked more as an outpatient when she is more stable. At this point, she may be suffering from some acute delirium related to her hospitalization as well. She did have some leukocytosis. There was some concern that she may have had some aspiration. She is currently on clindamycin. No obvious evidence of infection. I will follow up her studies today, make further recommendations as necessary. [id number]/[facility] #: [id number] MTDD
--- NOTE | 2017-11-15 11:23 | RAD ---
HISTORY: Stroke COMPARISONS: Head CT dated November 13, 2017, CTA dated November 13, 2017 TECHNIQUE: The following sequences were obtained of the head: Sagittal T1-weighted images, axial T2-weighted images, axial FLAIR images, axial susceptibility weighted images, axial T1-weighted images. Additionally, axial diffusion-weighted images were obtained with calculated apparent diffusion coefficients. FINDINGS: HEMORRHAGE/INFARCT: There is no hemorrhage or acute infarct. MASSES/SHIFT: There is no mass or shift. EXTRA-AXIAL SPACES/MENINGES: There are no extra-axial fluid collections. SULCI AND VENTRICLES: There is diffuse and proportional enlargement of the sulci and ventricles. CEREBRUM: There is left temporal-occipital encephalomalacia consistent with remote infarct. There is diffusely elevated T2/FLAIR signal in the periventricular and subcortical white matter. BRAINSTEM: There are no focal parenchymal abnormalities. CEREBELLUM: There are no focal parenchymal abnormalities. The cerebellar tonsils are normal in size and position. SELLA: The sella is normal. PINEAL: The pineal region is clear. CP ANGLE/TEMPORAL BONES: The labyrinthine structures are grossly normal. VESSELS: Normal flow-voids are noted within the visualized vertebral vasculature. DIFFUSION ABNORMALITIES: There are no diffusion abnormalities. PARANASAL SINUSES/MASTOIDS: The paranasal sinuses are clear. ORBITS: The orbits are unremarkable. BONES AND SOFT TISSUE: No bone or soft tissue abnormalities are noted. OTHER: None IMPRESSION: 1. DIFFUSE INVOLUTIONAL CHANGE. 2. CHRONIC SMALL VESSEL ISCHEMIC CHANGES. 3. REMOTE LEFT LETTERER TERRITORY INFARCT. 4. NEUROSURGERY DIFFUSION TO SUGGEST ACUTE INFARCT.
[2017-11-15] MEDS: Aspirin Low Dose CHEW TAB* 81 MG PO SCH (11:25)
[2017-11-15] MEDS: Atorvastatin* 20 MG TAB PO SCH (18:26)
[2017-11-16] MEDS: Clindamycin 600 MG IVPREMIX(* 600 MG/50 ML SDV IV SCH (03:23)
[2017-11-16 06:11] LABS: Hematocrit 35 % (35-47); Hemoglobin 11.7 g/dl (12.0-16.0); Mean Corpuscular HGB Conc 33 g/dl (31-36); Mean Corpuscular Hemoglobin 30 pg (27-31); Mean Corpuscular Volume 92 fL (80-97); Mean Platelet Volume 9 um3 (7.4-10.4); Red Blood Count 3.85 10^6/ul (4.0-5.4); Red Cell Distribution Width 14 % (10.5-15); White Blood Count 12.5 10^3/ul (3.5-10.8)
[2017-11-16 06:12] LABS: Add Diff/Slide Review? Slide Review Added; Comments Flag Yes
[2017-11-16 06:21] LABS: BUN/Creatinine Ratio 24.5 (8-20); C Reactive Protein 51.53 mg/L (< 5.00); Calcium 8.3 mg/dL (8.6-10.3); EGFR African American 143.9 (>60); EGFR Non-African American 111.9 (>60); Potassium 3.3 mmol/L (3.5-5.0)
--- NOTE | 2017-11-16 07:34 | PN ---
Subjective - Subjective Reason for Note: Discharge Note History: She is seizure-free. This morning she was disoriented, and confabulated. Initially she stated she was in a group home, when corrected she stated it was like a group home. She didn't recall why she was here. However, I was able to take her for a walk down the length of the [place] and talk about an [place] author and she was able to discuss that with ease. Her breathing is fine on room air - O2 sat 100%. She is not coughing, bringing up sputum and has no dyspnea. She doesn't describe any pain. 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 History of CVA (cerebrovascular accident) (Chronic) Z86.73 History of hypertension (Chronic) Z86.79 Multiple cerebral infarctions (Chronic) I63.9 Osteoporosis (Chronic) M81.0 Current Medications: Current Medications Acetaminophen (Tylenol Tab*) 650 mg PO Q6H PRN PRN Reason: FEVER/PAIN Aspirin (Aspirin Low Dose Tab*) 81 mg PO DAILY [facility] Last Admin: 11/15/17 11:25 Dose: 81 mg Atorvastatin Calcium (Lipitor*) 20 mg PO 1700 [facility] Last Admin: 11/15/17 18:26 Dose: 20 mg Digoxin (Lanoxin Tab*) 0.125 mg PO DAILY [facility] Last Admin: 11/15/17 09:14 Dose: 0.125 mg Diltiazem HCl (Cardizem Cd Cap*) 180 mg PO QAM [facility] Last Admin: 11/15/17 09:14 Dose: 180 mg Levetiracetam 750 mg/ Sodium (Chloride) 107.5 mls @ 430 mls/hr IVPB Q12H [facility] Last Admin: 11/15/17 20:12 Dose: 430 mls/hr Clindamycin HCl/Dextrose (Cleocin 600 Mg Ivpremix(*) Sdv) 600 mg in 50 mls @ 100 mls/hr IV Q8H [facility] Last Admin: 11/16/17 03:23 Dose: 100 mls/hr Lamotrigine (Lamictal Tab(*)) 100 mg PO BID [facility] Lorazepam (Ativan Inj*) 2 mg IV PUSH Q10M PRN PRN Reason: seizure Lorazepam (Ativan Inj*) 0 - 3 mg IV PUSH .PER [facility] PROTOCOL NIC PRN Reason: Protocol Last Admin: 11/14/17 16:58 Dose: 1.5 mg Rivaroxaban (Xarelto(*)) [facility] Admin: 11/15/17 09:14 Dose: 15 mg Home Medications: Home Medications Medication Instructions Recorded Confirmed Type levETIRAcetam TAB* [Keppra TAB*] 750 mg PO BEDTIME tab 07/23/16 11/13/17 Rx Acetaminophen TAB* [Tylenol TAB*] 650 mg PO Q6H PRN #0 tab 07/24/16 11/13/17 Rx Atorvastatin* [Lipitor 20 MG*] 20 mg PO 1700 #30 tab 07/24/16 11/13/17 Rx Moisturizing CREAM* [Hydrocerin*] 1 applic TOPICAL BID jar 07/24/16 11/13/17 Rx Aspirin EC Low Dose* [Ecotrin EC 81 mg PO QAM 02/05/17 11/13/17 History Low Dose 81 MG*] Diltiazem CD CAP* [Cardizem CD 180 mg PO QAM 02/05/17 11/13/17 History CAP*] Rivaroxaban TAB(*) [Xarelto 15 15 mg PO QAM 02/05/17 11/13/17 History mg(*)] lamoTRIgine TAB(*) [Lamictal 100 mg PO BID 02/05/17 11/13/17 History TAB(*)] levETIRAcetam TAB* [Keppra TAB*] 500 mg PO QAM 02/05/17 11/13/17 History Digoxin TAB* [Lanoxin TAB*] 0.125 mg PO DAILY 11/14/17 11/14/17 History Allergies: Allergies Allergy/AdvReac Type Severity Reaction Status Date / Time No Known Allergies Allergy Verified 02/12/17 08:03 Objective - Vital Signs Vital Signs: Vital Signs 11/15/17 11/15/17 11/15/17 07:31 08:00 08:01 Temperature 99.0 F 99.1 F 99.1 F Pulse Rate 94 102 94 Respiratory 37 30 17 Rate Blood Pressure 132/79 136/97 (mmHg) O2 Sat by Pulse 91 91 91 Oximetry 11/15/17 11/15/17 11/15/17 08:30 09:00 09:14 Temperature 99.5 F 99.7 F Pulse Rate 101 103 109 Respiratory 25 30 Rate Blood Pressure 147/92 143/98 (mmHg) O2 Sat by Pulse 96 90 Oximetry 11/15/17 11/15/17 11/15/17 09:30 10:00 11:18 Temperature 99.9 F 100.0 F Pulse Rate 99 111 Respiratory 42 27 Rate Blood Pressure 131/90 131/86 (mmHg) O2 Sat by Pulse 89 89 Oximetry 11/15/17 11/15/17 11/15/17 11:20 11:30 12:35 Temperature 98.0 F Pulse Rate 110 110 102 Respiratory 20 Rate Blood Pressure 145/100 134/114 134/58 (mmHg) O2 Sat by Pulse 88 95 Oximetry 11/15/17 11/15/17 11/15/17 16:13 18:40 19:39 Temperature 98.0 F 99.2 F 98.2 F Pulse Rate 102 82 90 Respiratory 20 20 22 Rate Blood Pressure 112/69 134/69 125/77 (mmHg) O2 Sat by Pulse 90 96 94 Oximetry 11/15/17 11/15/17 11/16/17 20:00 22:21 00:00 Temperature 98.0 F Pulse Rate 109 Respiratory 18 20 18 Rate Blood Pressure 137/73 (mmHg) O2 Sat by Pulse 94 91 Oximetry 11/16/17 11/16/17 11/16/17 00:06 02:00 02:18 Temperature 98.1 F 98.6 F Pulse Rate 111 114 Respiratory 18 20 20 Rate Blood Pressure 148/79 146/81 (mmHg) O2 Sat by Pulse 90 90 Oximetry 11/16/17 11/16/17 04:15 04:24 Temperature 98.1 F Pulse Rate 118 96 Respiratory 16 Rate Blood Pressure 153/80 (mmHg) O2 Sat by Pulse 100 Oximetry - Intake and Output Intake and Output: Intake & Output 11/13/17 11/14/17 11/15/17 11/16/17 11:59 11:59 11:59 11:59 Intake Total 1146 2943 Output Total 1775 750 Balance -629 2193 Weight 126 lb 8.725 oz 127 lb 10.362 oz Intake: IV Fluids 734 975 NS (0.9%) 734 693 potassium 282 IVPB 314 613 ABX - CLINDAMYCIN 104 205 NS (0.9%) 408 potassium 210 Medicated IV 98 105 Keppra 98 105 Oral 0 1250 Output: Joya 1775 750 ADLs: Meal Record Start: 11/13/17 18: 51 Freq: 09,13,18 Status: Complete Protocol: Document 11/14/17 14:14 [id number] (Rec: 11/14/17 14:15 [id number] ICU-M26) Document 11/14/17 18:00 [id number] (Rec: 11/14/17 18:27 [id number] ICU-C16) Document 11/15/17 09:00 [id number] (Rec: 11/15/17 09:43 [id number] ICU-C16) Intake and Output Start: 11/13/17 18: 51 Freq: 06,14,22 Status: Complete Protocol: Document 11/13/17 21:38 [id number] (Rec: 11/13/17 21:39 [id number] ICU-M01) Document 11/14/17 03:04 [id number] (Rec: 11/14/17 03:06 [id number] ICU-C16) Document 11/14/17 06:30 [id number] (Rec: 11/14/17 06:30 [id number] ICU-M01) Document 11/14/17 14:00 [id number] (Rec: 11/14/17 14:08 [id number] ICU-C20) Document 11/14/17 17:43 [id number] (Rec: 11/14/17 17:43 [id number] ICU-C16) Document 11/14/17 17:44 [id number] (Rec: 11/14/17 17:44 [id number] ICU-C16) Document 11/14/17 17:49 [id number] (Rec: 11/14/17 17:49 [id number] ICU-C16) Document 11/14/17 22:00 [id number] (Rec: 11/14/17 22:03 [id number] ICU-C10) Document 11/15/17 06:00 [id number] (Rec: 11/15/17 06:38 [id number] ICU-C12) Document 11/15/17 11:20 [id number] (Rec: 11/15/17 11:21 [id number] ICU-C16) - Physical Exam General: No Cyanosis, No Anemia, No Jaundice, No Clubbing Eye Exam: bilateral: EOMI Lungs and Chest: Yes: Chest Expansion Full, Chest Expansion Symetrica, Percussion Note Resonant, Vessicular Breath Sounds. No: Crackles, Wheezes Heart Rate and Rhythm: Irregular Additional Cardiovascular: Yes: Normal Heart Sounds. No: Heart Murmur, Pedal Edema Abdominal Exam: Yes: Soft. No: Distention, Abdominal Tenderness - Extremities Cranial Nerves II-XII Intact: Yes Limbs: Normal Power, Normal Tone, Normal Gait - I assisted her - Neuro Orientation: Person Speech: Normal Results - Results Lab Results: Laboratory Results - last 24 hr 11/16/17 11/16/17 05:55 05:55 WBC 12.5 H RBC 3.85 L Hgb 11.7 L Hct 35 MCV 92 MCH 30 MCHC 33 RDW 14 Plt Count 183 MPV 9 Neut % (Auto) 74.7 Lymph % (Auto) 14.6 L Crisp % (Auto) 8.2 Eos % (Auto) 1.7 Baso % (Auto) 0.8 Absolute Neuts (auto) 9.3 H Absolute Lymphs (auto) 1.8 Absolute Monos (auto) 1.0 H Absolute Eos (auto) 0.2 Absolute Basos (auto) 0.1 Absolute Nucleated RBC 0 Nucleated RBC % 0 Sodium 135 Potassium 3.3 L Chloride 104 Carbon Dioxide 23 Anion Gap 8 BUN 13 Creatinine 0.53 Est GFR ( Amer) 143.9 Est GFR (Non-Af Amer) 111.9 BUN/Creatinine Ratio 24.5 H Glucose 135 H Calcium 8.3 L C-Reactive Protein 51.53 H 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 (Acute 01/07/15) Seizure (Acute 08/27/15) Volume overload (Acute) Alcohol dependence (Chronic) Alcoholism (Chronic) Anticoagulated (Chronic) Atrial fibrillation (Chronic) COPD (chronic obstructive pulmonary disease) (Chronic) 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 We have increased the dose of the keppra and will check levels when the kinetics are appropriate. She has no signs of a CVA on MRI brain. Her orientation is poor and she has no insight into this admission - combination of hospital environment, amnesia from the seizure/benzodiazepines/ alcohol withdrawal and possibly some atherosclerotic dementia. I discussed this with Dr. Manny Carvajal for neurology and he agrees she is safe for discharge. I spoke to her Kevin and he will make his own assessment re: safety. I think in the context of her home she will be much more oriented.
[2017-11-16 08:02] VITALS: BP 148/96
--- NOTE | 2017-11-16 08:02 | RAD ---
INDICATION: Seizure COMPARISON: Chest x-ray dated November 14, 2017 TECHNIQUE: Single AP portable view of the chest was obtained. FINDINGS: Image quality is compromised due to the relative inferiority of a portable chest x-ray. The heart and mediastinum exhibit normal size and contour. There is stable coarse calcification overlying the arch of the aorta. The lungs are grossly clear. There is no evidence of a large pleural effusion. Visualized bones are normal for the patient's age. IMPRESSION: No radiographic evidence for acute cardiopulmonary abnormality on this portable chest x-ray.
[2017-11-16] MEDS: Aspirin Low Dose CHEW TAB* 81 MG PO SCH (08:29)
[2017-11-16] MEDS: Rivaroxaban TAB(*) 15 MG PO SCH (08:29)
[2017-11-16] MEDS: Diltiazem CD CAP* 180 MG PO SCH (08:29)
[2017-11-16] MEDS: Digoxin TAB* 0.125 MG PO SCH (08:29)
[2017-11-16] MEDS ORDERED: levETIRAcetam TAB* 500 MG PO SCH (09:00)
[2017-11-16] MEDS ORDERED: lamoTRIgine TAB(*) 100 MG PO SCH (09:00)
--- NOTE | 2017-11-16 12:43 | EEG ---
ELECTROENCEPHALOGRAPHY: DATE OF STUDY: 11/15/17 - ROOM #419 LOCATION: The patient is an inpatient. ORDERING PHYSICIAN: Dr. Tijerina.* HISTORY: This is a 77-year-old woman who was brought in to the emergency department on 11/13/17 after having a staring spell and then going into a generalized seizure. She also had a seizure in the emergency department and was given Ativan. She was nonverbal with a left fixed gaze and some right sided weakness following the seizure. EEG is requested to evaluate for epileptiform abnormalities. MEDICATIONS: 1. Keppra. 2. Digoxin. 3. Lopressor. 4. Ativan. 5. Haldol. 6. Atenolol. 7. Lipitor. 8. Clindamycin. 9. Xarelto. DESCRIPTION: The waking background showed appropriate organization with clearly defined anterior to posterior voltage and frequency gradients. There was a well- defined posterior dominant rhythm of 8.5 Hz, which was symmetrical and showed normal reactivity. Anteriorly, there was an expected pattern of low voltage, irregular, mixed faster frequencies. There was excess theta activity noted primarily in the frontal and central regions, consistent with recent benzodiazepine administration. Otherwise, the EEG was also notable for frequent periods of polymorphic, diffuse , but frontally predominant 1 to 2 Hz slowing. At times, this slowing would last 5 to 10 seconds. The left hemisphere, and in particular the left temporal region, demonstrated a greater degree of this slowing and intermittently showed a relative loss of faster frequency activity in the temporal region. There were some occasional sharp wave forms noted in the left parietal occipital region but these did not have definitive epileptiform characteristics. Hyperventilation and photic stimulation were not performed. Throughout the recording, there were no definitive epileptiform discharges. IMPRESSION: This is an abnormal waking EEG due to the presence of frequent, diffuse slowing in the delta range, which affected the left hemisphere and in particular the left temporal region to a greater degree. These findings are suggestive of a generalized, nonspecific, diffuse encephalopathy, which affects the left temporal region to a greater degree. This encephalopathy is of a mild to moderate degree. There are no definitive epileptiform abnormalities. [id number]/[facility]PS #: [id number] MTDD
[2017-11-16 13:16] LABS: Levetiracetam <2.0 mcg/mL
--- NOTE | 2017-11-16 22:39 | DS ---
CC: Dr. Edgar Pandey * DISCHARGE SUMMARY: DATE OF ADMISSION: 11/13/17 DATE OF DISCHARGE: 11/16/17 DISCHARGE DIAGNOSES: 1. Generalized seizures. 2. Breakthrough seizures. 3. Volume overload with respiratory failure. 4. Disorientation. SECONDARY DIAGNOSES: 1. Seizure disorder. 2. History of stroke and cerebrovascular disease. 3. Hypercholesterolemia. 4. Alcoholism. 5. Chronic atrial fibrillation, rate controlled, anticoagulated. 6. Chronic obstructive pulmonary disease. 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 She has a longstanding history of seizure disorder, which is treated as an outpatient with lamotrigine 100 mg twice daily and levetiracetam 750 mg q.a.m. and 500 mg q.p.m. She has had prior breakthrough seizures on adequate levels of Keppra. She continues to drink at her admission 2 glasses of wine a night despite multiple attempts to stop of doing this. Her presentation is documented in Ghada Matthews, nurse practitioner's detailed admitting history and physical. In short, they were shopping in [place] and she had a witnessed seizure. A telestroke protocol was initiated; however, when she arrived at the hospital, it was thought that this was seizure activity and not a stroke. She had a CT scan showing no acute intracranial findings. PHYSICAL EXAMINATION ON ADMISSION: Temperature 100.2, heart rate 115, respiratory rate 28, blood pressure 126/94, oxygen saturation 97% on Vapotherm. Cardiovascular System: Atrial fibrillation, tachycardia. No murmurs or edema. Nervous System: Did not cooperate with neuro exam. Able to open her eyes. Attempted to make verbalization, but mumbled. INITIAL LABORATORY DATA: White count 11, hemoglobin 13.6, hematocrit 42, platelets 236. INR 1.01. Sodium 138, potassium 3.6, chloride 105, bicarbonate 19, BUN 15, creatinine 0.85, glucose 184, lactic acid 6.1, calcium 8.8, magnesium 2. Bilirubin 0.7, AST 69, ALT 46, ALP 106. Troponin I 0.01. BNP 285. Digoxin level 0.2. INITIAL IMPRESSION: Seizure disorder. She was given IV Keppra and IV benzodiazepines and watched in the ICU. Acute hypoxemic respiratory failure, thought to be due to congestive cardiac failure versus pulmonary edema secondary to the seizure. She had mild lactic acidosis. INVESTIGATIONS: Radiology: 11/13/17 CTA, moderate atherosclerotic changes of the great vessels from the arch. No evidence of proximal stenosis. Small right vertebral artery and right posterior cerebral artery, no significant stenosis. Chest x-ray: She had a series of chest x-rays, which showed evidence of cardiomegaly, pulmonary interstitial edema. MRI of the brain: This showed no evidence of acute infarction or hemorrhage. EKG: Atrial fibrillation 130, QTc 486, QRS axis 31, no ST or T-wave changes. EEG: Verbal, no seizure activity. CONSULTATIONS: She was seen in consultation by Dr. Kevin Ivrin whose consultation note is part of the electronic medical record. He suggested increasing a dose of Keppra to 750 mg twice daily. Belle Tijerina MD, her pulmonology consultation is part of electronic medical record. She felt that her acute respiratory failure was secondary to volume overload of CHF and not COPD. Recommended ongoing diuretic therapy. HOSPITAL COURSE: The first part of the hospitalization was in the ICU. She received medication that caused the seizure activity to disappear. She was also treated with some IV furosemide and her pulmonary edema improved. She was initially on Vapotherm and then was weaned to O2 by nasal cannula and finally by the day of discharge she was running 100% on room air. She had no further seizures during her hospitalizations and an EEG as mentioned above was negative. On the day of discharge, she is walking up and down the [place] with minimal assistance. She is disoriented and confabulates, but she has no focal symptoms , in particular no chest pain, shortness of breath, palpitations, or ankle swelling. She has no headache. No pains in her musculoskeletal system. Her appetite is reasonable. PHYSICAL EXAMINATION ON THE DAY OF DISCHARGE: Vital Signs: Temperature 98.1, heart rate 118, respiratory rate 16, oxygen 100% on room air, blood pressure 153 /80. She has no cyanosis, anemia, jaundice, clubbing, or lymphadenopathy. Cardiovascular System: Pulse was irregularly irregular. Heart sounds are normal. No added sounds or murmurs. No pedal edema. Respiratory System: Her chest was clear. Abdomen: No distention, masses, tenderness, or organomegaly. Nervous System: She is disoriented in time and place. She is oriented to person. She is unable to give an account of why she is in the hospital; however , she is able to talk lucidly about topics within her own expertise. She was able to walk up and down the hallway without much assistance. Her speech was fluent. She had conjugate eye movements. No nystagmus. Cranial nerves II through XII intact except slight left upper motor neurons facial droop. Arms and legs, full power, normal tone, and coordination. INVESTIGATIONS ON THE DAY OF DISCHARGE: White count 12.5, hemoglobin 11.7, hematocrit 35, platelets 183, percent neutrophils 74.7. Chemistry: Her potassium was 3.3, otherwise the chemistry was normal. C-reactive protein was 51.53. ASSESSMENT AND PLAN: 1. Breakthrough seizures. This patient is being treated with 2 anticonvulsants. She maintains that she has been compliant taking them. She recently increased the levetiracetam to 750 mg q.a.m. and 500 mg q.p.m. We now are giving her 750 mg twice daily and maintaining lamotrigine 100 mg twice daily. She continues to drink at least 2 units of wine a day against recommendations, we will not manage to alter this. It is possible she will have future breakthrough seizures. We are pending her levetiracetam levels and her lamotrigine levels, which were drawn in the emergency room. 2. Disorientation. This is probably a hospital effect, also it is contributed to by likely some vascular dementia. Dosages of medications to control her seizures, the postictal activity itself, and alcohol withdrawal. I think that being back home will orient her. I have discussed this with her . 3. Congestive heart failure. She had hypoxemia on admission to the hospital, this was readily treated with furosemide. She is back to baseline at this time. 4. Atrial fibrillation. She had subtherapeutic digoxin when she came in. Heart rate has remained a little fast, regularize this as an outpatient. 5. History of stroke. There is no evidence of any new stroke. Her other comorbidities are stable. DISCHARGE MEDICATIONS: 1. Levetiracetam 750 mg twice daily. 2. Lamotrigine 100 mg twice daily. 3. Acetaminophen 650 mg q.6 hours as needed for pain. 4. Atorvastatin 20 mg q.h.s. 5. Diltiazem 180 mg extended release daily. 6. Rivaroxaban 15 mg daily. 7. Aspirin 81 mg daily. FOLLOWUP: She will follow up as an outpatient at my office within a week. [id number]/[facility] #: [id number] 11/17/2017 Post script: The results of the Emergency Department drug levels are back: Lamotrigine 2.0 Levetiracetam < 2.0 This demonstrates this was not a breakthrough seizure, but was due to non- compliance. I will ensure Abeba's Kevin takes a more engaged role in ensuring she takes her medication as I don't think she is aware she is missing doses. MTDD
--- NOTE | 2017-11-16 22:47 | PN ---
PROGRESS NOTE: DATE OF PROGRESS NOTE: 11/16/17 CURRENT LOCATION: [facility], bed 1. SUBJECTIVE: Overnight, no new issues. She remains pleasantly confused at times , but re-orientable. I did speak with her attending physician, Dr. Biswas, this morning, who plans to send her home today. She has had no further seizure activity and overall has been doing well. Shortness of breath is stable. She has had no new issues. Studies: 1. MRI of the brain showed no evidence of any new strokes. 2. EEG: I did speak with the reading neurologist, the report is not finalized , but was notable for no overt seizure activity. OBJECTIVE: Vital Signs: Temperature of 97.9, pulse rate of 106, respiratory rate of 16, pulse ox is 88% up to 100%, blood pressure 148/96. General: She is a well- nourished, well-developed female in no acute distress. She is lying in her hospital bed. She is pleasant, well dressed, well groomed. HEENT: Normocephalic, atraumatic. Sclerae are anicteric. Mucous membranes are moist. Oropharynx is clear. Neck is supple. No thyromegaly or carotid bruits. Chest : Clear to auscultation bilaterally. Cardiovascular: Irregularly irregular. Abdomen is nontender. Extremities: No clubbing, cyanosis, or edema. Neurologic Exam: Awake, alert. She is oriented this morning to person and place. She knew it was October. She thought it was the , not the , but she knew it was 2016. Cranial nerves II through XII: Pupils are equal, round, and reactive to light. Extraocular muscles are intact. Face appears symmetric this morning. Sensation is intact. Hearing is intact bilaterally. Tongue is midline. Oropharynx, her palate raises symmetrically. Motor: She is spontaneously moving all extremities antigravity. Xrqemh-[id number]-werc is intact with mild intention tremor bilaterally. Sensation grossly intact to light touch and pinprick. DTRs were symmetric in the upper and lower extremities. Downgoing Babinski's. Gait was not tested this morning. DIAGNOSTIC STUDIES: As noted above. ASSESSMENT AND PLAN: Ms. Patel is a 77-year-old female with a history of seizures, history of atrial fibrillation and stroke in the past, no new stroke on this admission, was admitted with seizure-like activity. Her Keppra was increased from 500, 750 to 750 mg b.i.d. I restarted her on Lamictal as well on 100 mg p.o. b.i.d. She will be discharged home today in stable condition with plan to follow up with Dr. Pandey as an outpatient, who can further adjust her medications as necessary. I did speak with Dr. Biswas about the plan, who is in agreement. Her other medical conditions are being followed by Dr. Biswas and are stable. No other recommendations at this time. Thank you for the opportunity to participate in her care. [id number]/[facility] #: [id number] IAN
== END 2017-11-16 10:45 | disposition home or self-care (01) | DRG 100 ==
LOC: ED 15:22 → ICU 18:10 → MED 11-15 12:37
PROVIDERS: ADMIT Internal Medicine; ATTEND Internal Medicine
DX: G40.409 Other generalized epilepsy and epileptic syndromes, not intractable, without status epilepticus (principal); J96.01 Acute respiratory failure with hypoxia; I48.2 Chronic atrial fibrillation; I11.0 Hypertensive heart disease with heart failure; R13.10 Dysphagia, unspecified; H53.461 Homonymous bilateral field defects, right side; I50.9 Heart failure, unspecified; I69.354 Hemiplegia and hemiparesis following cerebral infarction affecting left non-dominant side; E78.00 Pure hypercholesterolemia, unspecified; F10.20 Alcohol dependence, uncomplicated; J44.9 Chronic obstructive pulmonary disease, unspecified; M81.0 Age-related osteoporosis without current pathological fracture; I25.10 Atherosclerotic heart disease of native coronary artery without angina pectoris; J31.0 Chronic rhinitis; Z79.1 Long term (current) use of non-steroidal anti-inflammatories (NSAID); Z79.01 Long term (current) use of anticoagulants; Z79.82 Long term (current) use of aspirin; Z79.899 Other long term (current) drug therapy; Z87.891 Personal history of nicotine dependence; I69.391 Dysphagia following cerebral infarction
CPT/HCPCS: 36415; 70450; 70496; 70498; 70551; 71010; 80048; 80053; 80061; 80162; 80175; 80177; 81003; 81015; 83036; 83605; 83735; 83880; 84484; 85025; 85610; 85730; 86140; 86850; 86900; 86901; 87040; 87641; 93005; 94760; 95816; A9270-GY; J1630; J1940; J2060; J2405; J3411; J3480; J3490; Q9967

== ENCOUNTER 2017-11-23 09:05 | Inpatient (IN) | payer MEDICARE, OTHER ==
[2017-11-23] MEDS ORDERED: Furosemide IV* 10 MG/ML VIAL (40 MG) IV ONE (09:10)
[2017-11-23] MEDS ORDERED: Heparin for STEMI(*) 5,000 UNITS/ML 1 ML VIAL IV ONE ×2 (09:12→09:13)
[2017-11-23] MEDS ORDERED: Heparin 2 UNITS/ML IVPREMIX* 0 ML IV ONE (09:20)
[2017-11-23] MEDS ORDERED: Iohexol 350 (CONTRAST) 200 ML MDV IV ONE (09:21)
[2017-11-23] MEDS ORDERED: Lidocaine 1% INJ* 10 MG/ML 30 ML SDV ONE (09:21)
[2017-11-23 09:22] LABS: ABS Basophils 0.2 10^3/ul (0-0.2); ABS Eosinophils 0.5 10^3/ul (0-0.6); ABS Lymphocytes 3.6 10^3/ul (1.0-4.8); ABS Monocytes 0.9 10^3/ul (0-0.8); ABS Neutrophils 10.2 10^3/ul (1.5-7.7); ABS Nucleated RBC 0.01 10^3/ul; Hematocrit 41 % (35-47); Hemoglobin 13.1 g/dl (12.0-16.0); Lymphocyte % 23.5 % (25-47); Mean Corpuscular HGB Conc 32 g/dl (31-36); Mean Corpuscular Hemoglobin 30 pg (27-31); Mean Corpuscular Volume 94 fL (80-97); Mean Platelet Volume 9 um3 (7.4-10.4); Nucleated Red Blood Cells % 0; Platelet Count 318 10^3/ul (150-450); Red Blood Count 4.35 10^6/ul (4.0-5.4); Red Cell Distribution Width 14 % (10.5-15); White Blood Count 15.4 10^3/ul (3.5-10.8)
[2017-11-23] MEDS ORDERED: nitroGLYCERIN DRIP* 25,000 MCG/250 ML BTL IV ONE (09:22)
[2017-11-23] MEDS ORDERED: Ondansetron INJ* 2 MG/ML VIAL IV ONE (09:33)
[2017-11-23] MEDS ORDERED: Morphine INJ* 4 MG/ML 1 ML CARPUJECT IV ONE (09:33)
--- NOTE | 2017-11-23 09:37 | RAD ---
Indication: Shortness of breath. STEMI. Comparison: November 16, 2017 Technique: Upright AP 0920 hours Report: Cutaneous cardiac pacemaker pads and monitoring leads. Cardiomegaly. Prominent ill-defined central pulmonary vasculature and perihilar alveolar opacities as well as prominent thickened peripheral interlobular septa. Probable small pleural effusions. Negative for pneumothorax. Advanced arthropathy of the LEFT glenohumeral joint. IMPRESSION: Cardiomegaly. Alveolar and interstitial pulmonary edema.
[2017-11-23 09:39] LABS: EGFR Non-African American 49.7 (>60)
[2017-11-23] MEDS ORDERED: Diltiazem IV* 5 MG/ML 5 ML VIAL (for loading dose/IV Push) (25 MG) IV SLOW PU ONE (09:50)
[2017-11-23 10:00] LABS: INR 2.22 (0.77-1.02)
[2017-11-23 10:22] LABS: Urine Appearance Clear; Urine Blood 1+ (Negative); Urine Color Straw; Urine Ketones Negative (Negative); Urine Protein 1+(30 mg/dL) (Negative); Urine Specific Gravity 1.005 (1.010-1.030); Urine Urobilinogen Negative (Negative)
[2017-11-23] MEDS ORDERED: Acetaminophen TAB* 325 MG PO PRN (11:46)
[2017-11-23] MEDS: Nitroglycerin 2% OINT* 1 GM PAK TOPICAL SCH (12:01)
[2017-11-23] MEDS ORDERED: Furosemide IV* 10 MG/ML 10 ML VIAL (100 MG) IV ONE (13:00)
[2017-11-23 13:11] LABS: EGFR Non-African American 58.5 (>60)
--- NOTE | 2017-11-23 13:18 | HP ---
H&P (Free Text) History and Physical: CRITICAL CARE MEDICINE DATE: 11/23/17 TIME: 1030 PRIMARY CARE PROVIDER: REFERRING PROVIDER: Aquilino REASON/CHIEF COMPLAINT: sob HISTORY OF PRESENT ILLNESS: 77 F, admitted a few weeks ago for seizure disorder and previous ailments with afib rvr, on chronic anticoagulation, questionable mediation adherence, and h/o CHF presenting to ED with acute SOB. Acute pulm edema. ECG with injury current. Questionable rate relationship moreso then type 1. No cp. Placed on bipap, ngt gtt, lasix and improving. Cards eval. ICU admit. REVIEW OF SYSTEMS: As per HPI. Denies cp, fever PAST MEDICAL HISTORY: As per HPI. Seizure disoder, cva, copd MEDICATIONS: Reviewed. ALLERGIES: None. SOCIAL HISTORY: present. FAMILY HISTORY: Noncontributory at present. PHYSICAL EXAM: Vital Signs: Reviewed. Neurologic: awake, communicating. HEENT: anicteric Cardiovascular: More reg irr on my eval; no farhan m of appreciation but may be masked by rales Respiratory: bl rales R>L Abdomen: soft, nt Extremities: warm Access: piv LABS: Reviewed. IMAGING: Reviewed. MEDICATIONS: Reviewed. 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 Cardiovascular: perfusing better now. Likely type 2 ischemia, however difficulty to discern initial culprit. Ernie with cad but not type 1 currently but signifincat pulm edema- question if MR to blame perhaps and she is rebounding now. no cp. Afib rvr with medication nonadherence may have lead to the pulm edema and subsequent ischemic change. Certainly showing low flow state on admission. on ntg paste and lasix. bipap for now this am as she is improving. f/u ecg and echo when rate controlled. cards f/u. f/u trop Respiratory: bipap for now and allow improved afterload and pre-load a bit longer and then off this afternoon. Anticiapte a nocturnal need tonight but hopefully much better come tomorrow. check flu swab Gastrointestinal: po later. Renal/Metabolic: f/u LA clearance. garcia and lasix. Infectious Disease: check flu swab otherwise no infective burden seen Hematology: on rivaroxban and asa. Can consider heparin gtt and hold off on rivaroxban for now until cad potential needs sorted. Endocrine: stable. sick euthyroid f/u Musculoskeletal: bedrest currently but then oob later and progressive mobility Psych/Social: and pt expressed understanding. d/w Dr. Biswas via phone and anticipate his involvement in care tomorrow. Supportive and preventative care as ordered. Disposition: ICU Code Status: Full Critical Care Time: 45min FChasidy Bates DO
--- NOTE | 2017-11-23 16:48 | ECHO ---
Patient: ELHAM CHOPRA [facility] Rec#: [id number] : 1940 Date: 11/23/2017 Age: 77y Height: 160.02 cm / 63.0 in Weight: 56.7 kg / 125.0 lbs Sex: F BSA: 1.58 Room#: [facility] Admit Date#: 11/23/2017 Type: Inpatient Referring: Brendon Bates Reading: Lit Robins MD Tape Editor: Renata Orta [facility] Transthoracic Echocardiogram Indication: SOB/A-fib BP: 99/56 HR: 92 Rhythm: A-Fib Findings History: TO ED today with SOB, limited echo done. This is a complete echo as follow-up. PMHx: a-fib,COPD,HTN,TIA,CVA. Technical Comments: The study quality is good. Completed at 1540. Left Ventricle: The left ventricular chamber size is normal. There is mild to moderately decreased left ventricular systolic function. The estimated ejection fraction is 40-45%. The best preserved segments are in inferior and posterior regions. The anterior and anterolateral and anteroseptal segments are relatively hypokinetic. There is a left ventricular septal wall motion abnormality observed, possibly due to the presence of a left bundle branch block. There is no consistent Doppler evidence of clinically significant diastolic dysfunction. The basal anteroseptal, basal anterior, basal anterolateral, mid anteroseptal, mid anterior, mid anterolateral, apical anterior, and apical lateral wall segments are hypokinetic (score 2). Overall wallmotion score index is 1.50 Left Atrium: The left atrium is moderately dilated. Right Ventricle: The right ventricular cavity size is normal.RV wall thickess upper limits of normal at 5 mm. The right ventricular global systolic function is mildly reduced. Right Atrium: The right atrium is mild to moderately dilated. Aortic Valve: The aortic valve leaflets are mildly thickened. There is mild aortic regurgitation. There is no evidence of aortic stenosis. Mitral Valve: There is moderate to severe mitral regurgitation. Central and posterior jets noted. There is no evidence of mitral stenosis. Tricuspid Valve: The tricuspid valve leaflets are normal. There is moderate tricuspid regurgitation. There is evidence that pulmonary hypertension may be underestimated. There is no tricuspid stenosis. Pulmonic Valve: The pulmonic valve appears normal. There is trace to mild pulmonic regurgitation. There is no pulmonic stenosis. Pericardium: The pericardium appears normal. Aorta: There is no dilatation of the ascending aorta. The aortic arch is not well visualized. There is no dilation of the aortic root. Pulmonary Artery: The main pulmonary artery appears normal. Venous: The inferior vena cava appears normal in size. There is a greater than 50% respiratory change in the inferior vena cava dimension. Conclusions There is mild to moderately decreased left ventricular systolic function. The estimated ejection fraction is 40-45%. The best preserved segments are in inferior and posterior regions. The right ventricular global systolic function is mildly reduced. The right atrium is mild to moderately dilated. The aortic valve leaflets are mildly thickened. There is moderate to severe mitral regurgitation. Central and posterior jets noted. There is moderate tricuspid regurgitation. There is evidence that pulmonary hypertension may be underestimated. Compared to this am, the hr is slower and the EF has improved from 25-30%.. Compared to 2015, the EF has decreased from 55-60% to 40-45% with segmental wall motion abnormalities. Measurements Name Value Normal Range RVIDd (AP) 2D 3 cm (0.9 - 2.6) RVDdMajor (2D) 3.1 cm (2.2 - 4.4) RAd ISD 4CH 5.5 cm (3.4 - 4.9) RA (A4C)W 4.4 cm (2.9 - 4.6) IVSd (2D) 1 cm (0.6 - 1) LVPWd (2D) 0.9 cm (0.6 - 1) LVIDd (2D) 4 cm (3.6 - 5.4) LVIDs (2D) 2.4 cm - LV FS (2D) 34 % (25 - 45) Aortic Annulus 1.7 cm (1.4 - 2.6) Ao root diameter (2D) 3 cm (2.1 - 3.5) Ascending Ao 3.3 cm (2.1 - 3.4) LA dimension (AP) 2D 4.2 cm (2.3 - 3.8) LAd ISD 4CH 5.4 cm (2.9 - 5.3) LA ISD 4CH W 4.5 cm (2.5 - 4.5) Name Value Normal Range LA ESV SP 4CH (A/L) 62 ml - LA ESV SP 2CH (A/L) 58 ml - LA ESV BP (A/L) 62 ml - LA ESV BP (A/L) index 38.72 ml/m2 - LA ESV SP 4CH (MOD) 58 ml - LA ESV SP 2CH (MOD) 55 ml - Name Value Normal Range MV E-wave Vmax 0.9 m/sec - MV deceleration time 169 msec - LV septal e' Vmax 0.05 m/sec - LV lateral e' Vmax 0.09 m/sec - LV E:e' septal ratio 18 ratio - LV E:e' lateral ratio 10 ratio - Name Value Normal Range AV Vmax 1.6 m/sec - AV VTI 26 cm - AV peak gradient 10.37 mmHg - AV mean gradient 5.07 mmHg - LVOT Vmax 0.9 m/sec - LVOT VTI 13.37 cm - LVOT peak gradient 3.01 mmHg - LVOT mean gradient 1.45 mmHg - AR PHT 577 msec - AR peak gradient 50.06 mmHg - Name Value Normal Range MR Vmax 4.82 m/sec - MR VTI 137.8 cm - Name Value Normal Range TR Vmax 2.5 m/sec - TR peak gradient 25 mmHg - RAP 3 mmHg - RVSP 28 mmHg - IVC diameter 1.7 cm - Name Value Normal Range PV Vmax 0.7 m/sec - PV peak gradient 2.28 mmHg - Wallmotion BAS Hypokinetic BA Hypokinetic BAL Hypokinetic SONDRA Normal BI Normal BIS Normal MAS Hypokinetic MA Hypokinetic MAL Hypokinetic MIL Normal CT Normal MIS Normal Normal AA Hypokinetic AL Hypokinetic AI Normal APEX Normal
[2017-11-23] MEDS: Atorvastatin* 20 MG TAB PO SCH (17:02)
[2017-11-23] MEDS ORDERED: Nitro Patch/OINT Remove PATCH OFF SCH (18:00)
--- NOTE | 2017-11-23 18:29 | ED ---
Tabby Ramirez Abhishek, scribed for José Luis Rolle MD on 11/23/17 at 0929 . Shortness of Breath - HPI Summary HPI Summary: This patient is a 77 year old F BIBA with a chief complaint of SOB since about an hour ago today (11/23/17). The STEMI alarm was present at 0900 and alert was present at 0912. EMS arrived to [facility] at 0903. Hx of the pt given by EMS report. EMS was called at 0820. Pt was in severe respiratory distress upon EMS arrival (arrival at 0826) with the underlying issue being STEMI. The pt showed mild improved enroute to the [facility]. According to the EMS report, the onset was sudden and there was an infarct bilaterally. The Pt has had weakness but no other SC like symptoms. The Pt was also given 2 NTG and aspirin (4 times). There is no PMHx of CHF but Hx of AFib. The patient is responsive and alert. The Pt denies chest pain. - History of Current Complaint Chief Complaint: EDRespiratoryDistress Time Seen by Provider: 11/23/17 09:07 Hx Obtained From: Patient, EMS Onset/Duration: Sudden Onset - 0820 on 11/23/17, Lasting Hours Aggrevating Factors: Nothing Alleviating Factors: Other - 2 NTG and 4 aspirin - Allergy/Home Medications Allergies/Adverse Reactions: Allergies Allergy/AdvReac Type Severity Reaction Status Date / Time No Known Allergies Allergy Verified 02/12/17 08:03 PMH/Surg Hx/FS Hx/Imm Hx Endocrine/Hematology History: Denies: Hx Diabetes, Hx Anemia Cardiovascular History: Reports: Hx Coronary Artery Disease, Hx Hypertension, Other Cardiovascular Problems/Disorders - NEW ONSET A-FIB Denies: Hx Angina, Hx Congestive Heart Failure, Hx Pacemaker/ICD Respiratory History: Reports: Hx Chronic Obstructive Pulmonary Disease (COPD), Other Respiratory Problems/Disorders - PRIOR SMOKER. QUIT 1994 Denies: Hx Asthma, Hx Chronic Bronchitis, Hx Pneumonia, Hx Sleep Apnea GI History: Denies: Hx Jaundice History: Reports: Other Problems/Disorders - HX HEMATURIA Denies: Hx Renal Disease Musculoskeletal History: Reports: Hx Orthopedic Injury - LEFT HUMEROUS FRACTURE , Hx Osteoporosis, Other Musculoskeletal History - OSTEOPOROSIS Denies: Hx Arthritis Sensory History: Reports: Other Sensory Impairments Denies: Hx Cataracts - removed bilateraly, Hx Contacts or Glasses, Hx Hearing Aid Opthamlomology History: Reports: Other Sensory Impairments Denies: Hx Cataracts - removed bilateraly, Hx Contacts or Glasses Neurological History: Reports: Hx Seizures, Hx Transient Ischemic Attacks (TIA) Denies: Hx Developmental Delay, Hx Headaches, Hx Migraine, Hx Nerve Disease, Hx Spinal Cord Injury, Other Neuro Impairments/Disorders Comment Only: Hx Dementia - hx of STM deficits Psychiatric History: Denies: Hx Anxiety, Hx Depression, Hx Panic Disorder - Surgical History Surgery Procedure, Year, and Place: GROWTH ON UTERUS REMOVED/ FIBROID 1972 Hx Anesthesia Reactions: No - Immunization History Date of Tetanus Vaccine: Up to date Date of Influenza Vaccine: fall 2014 Infectious Disease History: No Infectious Disease History: Denies: Traveled Outside the [place] in Last 30 Days - Family History Known Family History: Positive: Other - CVA; prior reports state pt is unaware of her FHx - Social History Occupation: Retired Alcohol Use: Daily Alcohol Amount: x2/day Substance Use Type: Reports: None Smoking Status (MU): Former Smoker Type: Cigarettes, Pipe Amount Used/How Often: 1/2 PPD - QUIT IN 1995 Length of Time of Smoking/Using Tobacco: 55 years Have You Smoked in the Last Year: No Review of Systems Constitutional: Negative Eyes: Negative ENT: Negative Negative: Chest Pain Positive: Shortness Of Breath, Other - Respiratory distress Gastrointestinal: Negative Genitourinary: Negative Musculoskeletal: Negative Skin: Negative Neurological: Negative Psychological: Normal All Other Systems Reviewed And Are Negative: Yes Physical Exam - Summary Physical Exam Summary: General: well-appearing, no pain distress Skin: warm, color reflects adequate perfusion, dry Head: normal Eyes: EOMI, SAMMY ENT: normal Neck: supple, nontender Respiratory: Severe respiratory distress. Respiratory bypass, crackles bilaterally Cardiovascular: Irregular rate and rhythm, Tachycardic Abdomen: soft, nontender Bowel: present Musculoskeletal: normal, strength/ROM intact, Trace pedal edema Neurological: normal, sensory/motor intact, A&O x3 Psychological: affect/mood appropriate Triage Information Reviewed: Yes Vital Signs On Initial Exam: Initial Vitals Temp Pulse Resp BP Pulse Ox 99.1 F 139 34 189/107 98 11/23/17 09:06 11/23/17 09:06 11/23/17 09:06 11/23/17 09:06 11/23/17 09:06 Vital Signs Reviewed: Yes - [place] Coma Scale Coma Scale Total: 15 Diagnostics - Vital Signs Vital Signs Temp Pulse Resp BP Pulse Ox 11/23/17 09:20 91 11/23/17 09:15 129 47 92 11/23/17 09:13 166/110 11/23/17 09:06 99.1 F 139 34 189/107 98 - Laboratory Lab Results: Lab Results 11/23/17 Range/Units 09:10 WBC 15.4 H (3.5-10.8) 10^3/ul RBC 4.35 (4.0-5.4) 10^6/ul Hgb 13.1 (12.0-16.0) g/dl Hct 41 (35-47) % MCV 94 (80-97) fL MCH 30 (27-31) pg MCHC 32 (31-36) g/dl RDW 14 (10.5-15) % Plt Count 318 (150-450) 10^3/ul MPV 9 (7.4-10.4) um3 Neut % (Auto) 66.6 (38-83) % Lymph % (Auto) 23.5 L (25-47) % Woodson % (Auto) 5.8 (1-9) % Eos % (Auto) 3.0 (0-6) % Baso % (Auto) 1.1 (0-2) % Absolute Neuts (auto) 10.2 H (1.5-7.7) 10^3/ul Absolute Lymphs (auto) 3.6 (1.0-4.8) 10^3/ul Absolute Monos (auto) 0.9 H (0-0.8) 10^3/ul Absolute Eos (auto) 0.5 (0-0.6) 10^3/ul Absolute Basos (auto) 0.2 (0-0.2) 10^3/ul Absolute Nucleated RBC 0.01 10^3/ul Nucleated RBC % 0 Result Diagrams: 11/23/17 09:10 11/23/17 12:36 Lab Statement: Any lab studies that have been ordered have been reviewed, and results considered in the medical decision making process. - Radiology Chest x-ray Radiology Interpretation Completed By: Radiologist - Chest X-ray, per radiologist, reveals Cardiomegaly. Alveolar and interstitial pulmonary edema. ED physician has reviewed this radiology report. - EKG 0904 EKG Interpretation: An EKG at 0904 showed Rapid Afib [address] elevation in anterior leads Course/Dx - Course Course Of Treatment: DR MOTLEY, CARDIOLOGY, SAW THE PATIENT IN THE ED FOR THE ST ELEVATIONS. DISCUSSED WITH DR CONRAD, PMD, AND DR CASAS, ICU. ADMIT ICU. - Diagnoses Provider Diagnoses: Pulmonary edema, Rapid atrial fibrillation, Hypoxia - Critical Care Time Critical Care Time: 30-74 min Discharge - Discharge Plan Condition: Guarded Disposition: ADMITTED TO [facility] documentation as recorded by the Tabby kelley Abhishek accurately reflects the service I personally performed and the decisions made by me, José Luis Rolle MD.
[2017-11-23] MEDS: levETIRAcetam TAB* 500 MG PO SCH (19:58)
[2017-11-23] MEDS: lamoTRIgine TAB(*) 100 MG PO SCH (19:58)
[2017-11-23] MEDS: Moisturizing CREAM* 120 GM JAR TOPICAL SCH (20:19)
[2017-11-23] MEDS ORDERED: Potassium Chlor TAB* 20 MEQ TAB.ER PO ONE (21:00)
[2017-11-24 05:42] LABS: ABS Basophils 0.2 10^3/ul (0-0.2); ABS Eosinophils 0.4 10^3/ul (0-0.6); ABS Lymphocytes 2.6 10^3/ul (1.0-4.8); ABS Monocytes 1.2 10^3/ul (0-0.8); ABS Neutrophils 7.8 10^3/ul (1.5-7.7); ABS Nucleated RBC 0 10^3/ul; Eosinophil % 3.4 % (0-6); Hematocrit 35 % (35-47); Hemoglobin 11.4 g/dl (12.0-16.0); Lymphocyte % 21.3 % (25-47); Mean Corpuscular HGB Conc 33 g/dl (31-36); Mean Corpuscular Hemoglobin 30 pg (27-31); Mean Corpuscular Volume 91 fL (80-97); Mean Platelet Volume 8 um3 (7.4-10.4); Nucleated Red Blood Cells % 0; Platelet Count 299 10^3/ul (150-450); Red Blood Count 3.78 10^6/ul (4.0-5.4); Red Cell Distribution Width 14 % (10.5-15); White Blood Count 12.1 10^3/ul (3.5-10.8)
[2017-11-24] MEDS: Nitroglycerin 2% OINT* 1 GM PAK TOPICAL SCH (05:58)
[2017-11-24 05:59] LABS: EGFR Non-African American 49.7 (>60)
--- NOTE | 2017-11-24 08:29 | PN ---
Subjective - Subjective History: Abeba Chopra presented with acute pulmonary edema, rapid atrial fibrillation, lactic acidosis and respiratory failure. According to her Kevin Chopra. After her recent admission she seemed tired and needed to rest. The night prior to presentation - it sounded like she had mucus in her throat - pronounced. The following morning morning she was fine but she then had problems with stairs - wanted help moving her legs. She has never complained of any pain at all. She had a lot of trouble breathing - called 911. She responded well to furosemide, BIPAP and conservative management. Her initial transthoracic echocardiogram demonstrated multiple areas of LV wall motion abnormality and a low EF. This improved later in the day. She has moderate to severe mitral regurgitation. This morning she is feeling well. She denies any chest pain, palpitations, dyspnea, cough and she is asking for breakfast. She has had no symptoms suggestive of any further seizure activity. Her recent admission for generalized seizures appears to have been triggered by non- compliance with her medication. She is alert and oriented x 3. 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 History of CVA (cerebrovascular accident) (Chronic) Z86.73 Multiple cerebral infarctions (Chronic) I63.9 Osteoporosis (Chronic) M81.0 Current Medications: Current Medications Acetaminophen (Tylenol Tab*) 650 mg PO Q6H PRN PRN Reason: FEVER/PAIN Aspirin (Aspirin Ec Low Dose*) 81 mg PO QAM [facility] Atorvastatin Calcium (Lipitor*) 20 mg PO 1700 [facility] Last Admin: 11/23/17 17:02 Dose: 20 mg Digoxin (Lanoxin Tab*) 0.125 mg PO DAILY [facility] Diltiazem HCl (Cardizem Cd Cap*) 180 mg PO QAM [facility] Lamotrigine (Lamictal Tab(*)) 100 mg PO BID [facility] Last Admin: 11/23/17 19:58 Dose: 100 mg Levetiracetam (Keppra Tab*) 750 mg PO BID [facility] Last Admin: 11/23/17 19:58 Dose: 750 mg Multi-Ingredient Ointment (Hydrocerin*) 1 applic TOPICAL BID [facility] Last Admin: 11/23/17 20:19 Dose: 1 applic Nitroglycerin (Nitroglycerin 2% Oint*) 0.5 inch TOPICAL 0600,1200 [facility] PRN Reason: Protocol Last Admin: 11/24/17 05:58 Dose: 0.5 inch Pharmacy Profile Note (Nitro Patch/Oint Remove*) 1 note PATCH OFF 1800 [facility] Last Admin: 11/23/17 18:39 Dose: 0.5 inch [facility]aroxaban ([facility]to(*)) [facility] [place]: [place] Medications Medication Instructions Recorded Confirmed Type Acetaminophen TAB* [Tylenol TAB*] 650 mg PO Q6H PRN #0 tab 07/24/16 11/23/17 Rx Atorvastatin* [Lipitor 20 MG*] 20 mg PO 1700 #30 tab 07/24/16 11/23/17 Rx Moisturizing CREAM* [Hydrocerin*] 1 applic TOPICAL BID jar 07/24/16 11/23/17 Rx Aspirin EC Low Dose* [Ecotrin EC 81 mg PO QAM 02/05/17 11/23/17 History Low Dose 81 MG*] Diltiazem CD CAP* [Cardizem CD 180 mg PO QAM 02/05/17 11/23/17 History CAP*] Rivaroxaban TAB(*) [Xarelto 15 15 mg PO QAM 02/05/17 11/23/17 History mg(*)] lamoTRIgine TAB(*) [Lamictal 100 mg PO BID 02/05/17 11/23/17 History TAB(*)] Digoxin TAB* [Lanoxin TAB*] 0.125 mg PO DAILY 11/14/17 11/23/17 History levETIRAcetam TAB* [Keppra TAB*] 750 mg PO BID tab 11/16/17 11/23/17 Rx Allergies: Allergies Allergy/AdvReac Type Severity Reaction Status Date / Time No Known Allergies Allergy Verified 02/12/17 08:03 Objective - Vital Signs Vital Signs: Vital Signs 11/23/17 11/23/17 11/23/17 10:28 10:30 10:45 Temperature Pulse Rate 97 90 93 Respiratory 25 27 23 Rate Blood Pressure 98/62 99/62 (mmHg) O2 Sat by Pulse 96 97 98 Oximetry 11/23/17 11/23/17 11/23/17 11:00 11:29 11:33 Temperature Pulse Rate 82 121 82 Respiratory 23 21 24 Rate Blood Pressure 93/67 115/75 (mmHg) O2 Sat by Pulse 99 98 100 Oximetry 11/23/17 11/23/17 11/23/17 11:38 11:45 12:00 Temperature 96.6 F 0 F Pulse Rate 85 90 83 Respiratory 32 26 28 Rate Blood Pressure 115/75 110/73 120/72 (mmHg) O2 Sat by Pulse 90 99 96 Oximetry 11/23/17 11/23/17 11/23/17 12:01 12:15 12:18 Temperature Pulse Rate 86 83 93 Respiratory 35 20 20 Rate Blood Pressure 111/70 (mmHg) O2 Sat by Pulse 98 96 96 Oximetry 11/23/17 11/23/17 11/23/17 12:30 12:45 13:00 Temperature Pulse Rate 77 83 87 Respiratory 21 19 17 Rate Blood Pressure 117/84 105/70 115/70 (mmHg) O2 Sat by Pulse 95 98 93 Oximetry 11/23/17 11/23/17 11/23/17 13:02 13:15 13:30 Temperature Pulse Rate 89 88 89 Respiratory 19 24 18 Rate Blood Pressure 108/78 99/67 (mmHg) O2 Sat by Pulse 93 95 97 Oximetry 11/23/17 11/23/17 11/23/17 13:43 13:45 14:00 Temperature Pulse Rate 94 99 88 Respiratory 28 29 24 Rate Blood Pressure 113/78 102/82 114/78 (mmHg) O2 Sat by Pulse 92 88 97 Oximetry 11/23/17 11/23/17 11/23/17 14:01 14:15 14:30 Temperature Pulse Rate 81 87 86 Respiratory 18 19 18 Rate Blood Pressure 114/66 120/70 (mmHg) O2 Sat by Pulse 98 98 96 Oximetry 11/23/17 11/23/17 11/23/17 14:45 15:00 15:01 Temperature Pulse Rate 100 81 85 Respiratory 25 24 24 Rate Blood Pressure 84/55 99/56 (mmHg) O2 Sat by Pulse 88 97 97 Oximetry 11/23/17 11/23/17 11/23/17 15:10 15:15 15:30 Temperature Pulse Rate 88 88 83 Respiratory 26 23 26 Rate Blood Pressure 128/76 115/74 (mmHg) O2 Sat by Pulse 92 96 91 Oximetry 11/23/17 11/23/17 11/23/17 15:45 16:00 16:04 Temperature Pulse Rate 90 80 88 Respiratory 22 20 19 Rate Blood Pressure 109/67 121/81 (mmHg) O2 Sat by Pulse 92 96 97 Oximetry 11/23/17 11/23/17 11/23/17 16:15 16:30 16:45 Temperature Pulse Rate 84 80 84 Respiratory 22 21 19 Rate Blood Pressure 108/74 130/78 106/74 (mmHg) O2 Sat by Pulse 94 94 98 Oximetry 11/23/17 11/23/17 11/23/17 17:00 17:01 17:15 Temperature Pulse Rate 74 89 86 Respiratory 19 18 19 Rate Blood Pressure 121/74 122/79 (mmHg) O2 Sat by Pulse 93 95 97 Oximetry 11/23/17 11/23/17 11/23/17 17:26 17:30 17:45 Temperature Pulse Rate 84 87 77 Respiratory 13 24 24 Rate Blood Pressure 121/72 112/75 (mmHg) O2 Sat by Pulse 96 94 95 Oximetry 11/23/17 11/23/17 11/23/17 18:00 18:01 19:00 Temperature Pulse Rate 90 Respiratory 17 20 23 Rate Blood Pressure 126/73 (mmHg) O2 Sat by Pulse 94 Oximetry 11/23/17 11/23/17 11/23/17 19:01 19:02 19:17 Temperature Pulse Rate 86 78 76 Respiratory 50 Rate Blood Pressure 156/143 84/59 (mmHg) O2 Sat by Pulse 94 86 89 Oximetry 11/23/17 11/23/17 11/23/17 19:31 19:45 20:00 Temperature 97.6 F Pulse Rate 82 69 71 Respiratory 26 Rate Blood Pressure 92/44 90/58 105/61 (mmHg) O2 Sat by Pulse 90 98 92 Oximetry 11/23/17 11/23/17 11/23/17 20:01 20:15 20:23 Temperature Pulse Rate 70 67 67 Respiratory 23 21 Rate Blood Pressure 87/49 (mmHg) O2 Sat by Pulse 92 98 99 Oximetry 11/23/17 11/23/17 11/23/17 20:30 20:45 20:47 Temperature Pulse Rate 61 63 62 Respiratory 21 19 18 Rate Blood Pressure 87/48 (mmHg) O2 Sat by Pulse 96 96 99 Oximetry 11/23/17 11/23/17 11/23/17 20:50 21:00 21:01 Temperature Pulse Rate 62 58 64 Respiratory 18 21 23 Rate Blood Pressure 91/43 101/55 (mmHg) O2 Sat by Pulse 98 96 97 Oximetry 11/23/17 11/23/17 11/23/17 21:04 21:15 21:30 Temperature Pulse Rate 60 66 61 Respiratory 21 19 20 Rate Blood Pressure 113/77 114/68 (mmHg) O2 Sat by Pulse 97 98 98 Oximetry 11/23/17 11/23/17 11/23/17 21:45 22:00 22:01 Temperature Pulse Rate 62 64 61 Respiratory 22 21 19 Rate Blood Pressure 106/61 105/62 (mmHg) O2 Sat by Pulse 98 97 98 Oximetry 11/23/17 11/23/17 11/23/17 22:05 22:06 23:00 Temperature Pulse Rate 60 64 64 Respiratory 18 21 21 Rate Blood Pressure 103/62 (mmHg) O2 Sat by Pulse 98 97 98 Oximetry 11/23/17 11/24/17 11/24/17 23:01 00:00 01:00 Temperature 99.3 F Pulse Rate 60 59 70 Respiratory 21 20 19 Rate Blood Pressure 116/64 119/76 (mmHg) O2 Sat by Pulse 97 98 99 Oximetry 11/24/17 11/24/17 11/24/17 02:00 03:00 04:00 Temperature 98.7 F Pulse Rate 73 85 81 Respiratory 18 18 25 Rate Blood Pressure 115/70 125/67 140/79 (mmHg) O2 Sat by Pulse 98 97 96 Oximetry 11/24/17 11/24/17 11/24/17 04:01 05:00 06:00 Temperature Pulse Rate 84 79 87 Respiratory 21 21 17 Rate Blood Pressure 139/84 128/71 (mmHg) O2 Sat by Pulse 98 96 92 Oximetry 11/24/17 11/24/17 07:00 07:44 Temperature 99.3 F Pulse Rate 82 Respiratory 18 Rate Blood Pressure 148/73 (mmHg) O2 Sat by Pulse 95 Oximetry - Intake and Output Intake and Output: Intake & Output 11/21/17 11/22/17 11/23/17 11/24/17 11:59 11:59 11:59 11:59 Intake Total 400 Output Total 3830 Balance -3430 Weight 125 lb 0.034 oz 120 lb 13.013 oz Intake: Oral 400 Output: Joya 3830 ADLs: Meal Record Start: 11/23/17 11: 21 Freq: 09,13,18 Status: Active Protocol: Document 11/23/17 13:00 [id number] (Rec: 11/23/17 13:03 [id number] ICU-M18) Document 11/23/17 18:00 [id number] (Rec: 11/23/17 18:02 [id number] ICU-M18) Intake and Output Start: 11/23/17 11: 21 Freq: 06,14,22 Status: Active Protocol: Document 11/23/17 12:20 [id number] (Rec: 11/23/17 12:20 [id number] ICU-M18) Document 11/23/17 14:00 [id number] (Rec: 11/23/17 14:02 [id number] ICU-M18) Document 11/23/17 17:24 [id number] (Rec: 11/23/17 17:24 [id number] ICU-M18) Document 11/23/17 22:00 [id number] (Rec: 11/23/17 22:07 [id number] [facility] [place] Document 11/23/17 22:36 [id number] (Rec: 11/23/17 22:36 [id number] ICU-C11) Document 11/24/17 06:00 [id number] (Rec: 11/24/17 06:11 [id number] ICU-C10) - Physical Exam General Physical Exam Comment: Warm and well perfused, hemodynamically stable. General: No Cyanosis, No Anemia, No Jaundice, No Clubbing Eye Exam: bilateral: EOMI Lungs and Chest: Yes: Chest Expansion Full, Chest Expansion Symetrica, Percussion Note Resonant, Vessicular Breath Sounds. No: Crackles Heart Rate and Rhythm: Irregular - with tachycardia Additional Cardiovascular: Yes: Normal Heart Sounds. No: Pedal Edema Abdominal Exam: Yes: Bowel Sounds Present. No: Distention, Hepatomegaly - Extremities Limbs: Normal Power, Normal Tone - Neuro Orientation: A/O x3 Speech: Normal, Dysphasia - subtle expressive dysphasia Results - Results Lab Results: Laboratory Results - last 24 hr 11/23/17 11/23/17 11/23/17 12:36 12:36 13:45 WBC RBC Hgb Hct MCV MCH MCHC RDW Plt Count MPV Neut % (Auto) Lymph % (Auto) Elliott % (Auto) Eos % (Auto) Baso % (Auto) Absolute Neuts (auto) Absolute Lymphs (auto) Absolute Monos (auto) Absolute Eos (auto) Absolute Basos (auto) Absolute Nucleated RBC Nucleated RBC % Sodium 140 Potassium 4.0 Chloride 104 Carbon Dioxide 28 Anion Gap 8 BUN 17 Creatinine 0.93 Est GFR ( Amer) 75.2 Est GFR (Non-Af Amer) 58.5 BUN/Creatinine Ratio 18.3 Glucose 121 H Lactic Acid 1.5 Calcium 8.3 L Phosphorus Magnesium Troponin I 0.06 H* B-Natriuretic Peptide Influenza A (Rapid) Negative Influenza B (Rapid) Negative 11/23/17 11/24/17 11/24/17 15:19 05:30 05:30 WBC RBC Hgb Hct MCV MCH MCHC RDW Plt Count MPV Neut % (Auto) Lymph % (Auto) Elliott % (Auto) Eos % (Auto) Baso % (Auto) Absolute Neuts (auto) Absolute Lymphs (auto) Absolute Monos (auto) Absolute Eos (auto) Absolute Basos (auto) Absolute Nucleated RBC Nucleated RBC % Sodium 139 Potassium 3.7 Chloride 102 Carbon Dioxide 29 Anion Gap 8 BUN 24 Creatinine 1.07 H Est GFR ( Amer) 63.9 Est GFR (Non-Af Amer) 49.7 BUN/Creatinine Ratio 22.4 H Glucose 110 H Lactic Acid Calcium 8.4 L Phosphorus 4.4 Magnesium 2.1 Troponin I 0.06 H* 1.20 H* B-Natriuretic Peptide 272 H Influenza A (Rapid) Influenza B (Rapid) 11/24/17 05:30 WBC 12.1 H RBC 3.78 L Hgb 11.4 L Hct 35 MCV 91 MCH 30 MCHC 33 RDW 14 Plt Count 299 MPV 8 Neut % (Auto) 64.0 Lymph % (Auto) 21.3 L Elliott % (Auto) 9.9 H Eos % (Auto) 3.4 Baso % (Auto) 1.4 Absolute Neuts (auto) 7.8 H Absolute Lymphs (auto) 2.6 Absolute Monos (auto) 1.2 H Absolute Eos (auto) 0.4 Absolute Basos (auto) 0.2 Absolute Nucleated RBC 0 Nucleated RBC % 0 Sodium Potassium Chloride Carbon Dioxide Anion Gap BUN Creatinine Est GFR ( Amer) Est GFR (Non-Af Amer) BUN/Creatinine Ratio Glucose Lactic Acid Calcium Phosphorus Magnesium Troponin I B-Natriuretic Peptide Influenza A (Rapid) Influenza B (Rapid) Radiology Results: Patient Name: ABEBA CHOPRA Medical Record#: [id number] Ordering Physician: José Luis Rolle MD Acct.#: [id number] : 1940 Age: 77 Sex: F Location: EMERGENCY DEPARTMENT Exam Date: 11/23/17907 ADM Status: REG ER Order Information: CHEST AP PORTABLE Accession Number: [id number] CPT: 49292 Indication: Shortness of breath. STEMI. Comparison: November 16, 2017 Technique: Upright AP 0920 hours Report: Cutaneous cardiac pacemaker pads and monitoring leads. Cardiomegaly. Prominent ill-defined central pulmonary vasculature and perihilar alveolar opacities as well as prominent thickened peripheral interlobular septa. Probable small pleural effusions. Negative for pneumothorax. Advanced arthropathy of the LEFT glenohumeral joint. IMPRESSION: Cardiomegaly. Alveolar and interstitial pulmonary edema. <Electronically signed by Stef Long MD in [place]> 11/23/17932 Dictated By: Stef Long MD Dictated Date/Time: 11/23/17932 Transcribed Date/Time: 11/23/17930 Copy to: CC:Jigar Biswas MD; José Luis Rolle MD Imaging - [facility] Imaging - [facility] Imaging - [facility] [address] [place] [address] ph ([phone]) ph ([phone]) ph ([phone]) 1 of EKG Report: 11/24/2017 06:36 Atrial fibrillation: QTc 533 QRS axis 78 Deep T wave inversions V1 - V5, other leads also have mild T wave changes. Other Results/Reports: 2nd transthoracic echocardiogram: Conclusions There is mild to moderately decreased left ventricular systolic function. The estimated ejection fraction is 40-45%. The best preserved segments are in inferior and posterior regions. The right ventricular global systolic function is mildly reduced. The right atrium is mild to moderately dilated. The aortic valve leaflets are mildly thickened. There is moderate to severe mitral regurgitation. Central and posterior jets noted. There is moderate tricuspid regurgitation. 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 She improved with IV diuretic therapy, BIPAP and nitroglycerine. Today, she has an elevated Troponin I level, her EKG shows anterior deep T wave changes. Symptomatically, she is doing very well - she has no further dyspnea, and her chest sounds clear to auscultation. The exact chain of events leading to this presentation with acute pulmonary edema is not fully clear to me. Here are a few possibilities: - Acute myocardial ischemia/subendocardial MN leading to left heart failure - Acute, occult, ventricular dysrhythmia leading to demand ischemia and left ventricular failure. I note her QTc is prolonged (but on 11/13 it was 486 ms) - Acute, paroxysmal rapid atrial fibrillation leading to demand ischemia and left ventricular failure - Acute mitral valve decompensation (papillary muscle dysfunction?) leading to acute left ventricular failure and demand ischemia - I do not see evidence of infection triggering this event. I think we need to decide upon whether she should go directly to a cardiac catheterization to determine if she has a critical coronary artery stenosis. At the same time they could check her mitral valve hemodynamics to see if this valve requires repair/replacement. I don't think a stress test is likely to shine much light on the situation. I have discussed this with the patient and her (on the phone). I spoke with Dr. Reema Santana who will consult for cardiology and help figure out the appropriate management plan and expand my differential diagnosis Alcoholism (Chronic) Her states she only is drinking 1/2 glass wine per night Anticoagulated (Chronic) ongoing Atrial fibrillation (Chronic) She has mild tachycardia this morning COPD (chronic obstructive pulmonary disease) (Chronic) no clear exacerbation Essential (primary) hypertension (Chronic) stable running a little high this morning Hemianopia, homonymous, right (Chronic) secondary diagnosis History of CVA (cerebrovascular accident) (Chronic) Multiple cerebral infarctions (Chronic) secondary diagnosis Osteoporosis (Chronic) secondary diagnosis Seizure (Acute 08/27/15) secondary diagnosis 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
[2017-11-24] MEDS: Digoxin TAB* 0.125 MG PO SCH (08:34)
[2017-11-24] MEDS: levETIRAcetam TAB* 500 MG PO SCH ×2 (08:34→21:03)
[2017-11-24] MEDS: lamoTRIgine TAB(*) 100 MG PO SCH ×2 (08:35→21:00)
[2017-11-24] MEDS: Moisturizing CREAM* 120 GM JAR TOPICAL SCH ×2 (08:35→21:11)
[2017-11-24] MEDS: Rivaroxaban TAB(*) 15 MG PO SCH (08:35)
[2017-11-24] MEDS: Aspirin EC Low Dose* 81 MG TAB.EC PO SCH (08:35)
[2017-11-24] MEDS ORDERED: Diltiazem CD CAP* 180 MG PO SCH (09:00)
[2017-11-24] MEDS ORDERED: Spironolactone TAB* 25 MG PO ONE (10:54)
[2017-11-24] MEDS: Metoprolol Succinate XL TAB* 25 MG PO SCH ×3 (11:12→21:02)
--- NOTE | 2017-11-24 12:54 | CONS ---
CARDIOLOGY CONSULTATION NOTE: DATE OF CONSULT: 11/24/17 CHIEF COMPLAINT: Shortness of breath. REASON FOR CONSULT: Congestive heart failure, atrial fibrillation, elevated troponins. HISTORY OF PRESENT ILLNESS: The patient is a 77-year-old woman who was first diagnosed with atrial fibrillation in 2012 when she presented with stroke. At that time, she was a heavy alcohol drinker and she has subsequently been placed on Xarelto. She also has a longstanding seizure disorder. Since 2012, the patient had multiple admissions for neurological issues. In October of 2016, she had a fall downstairs and had fractures for which she underwent surgery in January. The patient was admitted 11/13/17 with neurological episode where she was staring at [employer], vomited. She had seizure activity but also had congestive heart failure, hypoxia, and a rapid ventricular rate with atrial fibrillation. She was stabilized and sent home. Yesterday, the patient presented to the emergency department, acutely short of breath and was found to have pulmonary edema, her A-fib was in a rapid ventricular rate with an abnormal ECG. Interventional cardiology was contacted and recommended medical management at that time. She was treated overnight with Lasix, nitroglycerin drip and BiPAP and admitted to the intensive care unit. The patient states she feels much better today. She is vague about her history. Admits she might have missed a few doses of medications but does not think she missed a lot of medications. She says although she tries to be careful with salt in her diet; over the last several weeks in the holiday period , she has not been limiting or careful with what she eats. PAST MEDICAL HISTORY: The patient has a past medical history of: 1. Chronic atrial fibrillation diagnosed in 2012. 2. Stroke - left hemispheric June 2013 with deficits in the left thalamus, left geniculate nucleus, left homonymous hemianopsia with expressive aphasia and more. 3. Longstanding seizure disorder. 4. Excessive alcohol, I believe, in the past. 5. History of falls. 6. Congestive heart failure earlier this month. 7. COPD. 8. Asthma. 9. Hypertension. 10. Osteoporosis. 11. Seasonal rhinitis. PAST SURGICAL HISTORY: Includes carpal tunnel surgery, exploratory lap, and fibroid surgery. MEDICATIONS: Current inpatient medications include: 1. Tylenol p.r.n. 2. Aspirin 81 mg a day. 3. Lipitor 20 mg a day. 4. Digoxin 0.125 mg a day. 5. Diltiazem 180 mg a day. 6. Lamictal 100 mg b.i.d. 7. Keppra 750 mg b.i.d. 8. Hydrocerin ointment. 9. Nitroglycerin paste 2%. 10. Nitro patch. 11. Xarelto 15 mg q.a.m. PRN medications recently given included: 1. IV diltiazem. 2. IV Lasix. 3. Nitroglycerin drip. 4. Potassium. ALLERGIES: She has no known drug allergies. FAMILY HISTORY: Not able to be accurately obtained from the patient or old charts. SOCIAL HISTORY: . Lives with her spouse. 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 The patient is a former smoker, cigarettes from 1957 to 1971 and a pipe to the . REVIEW OF SYSTEMS: The patient denies recent fevers, chills, sweats. She had some vague left-sided chest pain history. She said she has been short of breath for several weeks, is unaware of racing or palpitations of the heart. See history of present illness but believes she has only been rarely noncompliant with her medication and probable lack of care and low salt diet. PHYSICAL EXAM: Vital Signs: She is 5 feet 4 inches, weighs 120 pounds. Blood pressure 173/109, pulse was 114 and irregularly irregular, respiratory rate was 15, oxygen saturation 95% on nasal cannula. On exam, the patient is an elderly woman seated at 60 degrees, eating breakfast, appears comfortable. Psychologically, pleasant and cooperative and chatty. Neurologically, vague historian, not fully reliable. Formal neurological exam not performed but speech was articulate. She does follow commands well. She was examined in the bed and I was not able to watch her ambulate. Skin: Warm, dry. No cyanosis or rashes appreciated. HEENT: Mucous membranes were moist. Eating without difficulty or choking. Neck: Without thyromegaly or lymphadenopathy appreciated. Good carotid pulses without audible bruits. Chest and Back: Kyphoscoliosis noted, some scratch wiggins in the back consistent with itching and scratching in the upper back. Breath sounds had crackles in the bases bilaterally and diminished in the bases. I did not hear rubs. Coronary: S1, S2, irregularly irregular and tachycardic without appreciable murmurs. Abdomen : Somewhat distended, active bowel sounds, soft. Hard to evaluate for hepatomegaly and lower extremities were free of edema. DIAGNOSTIC STUDIES/LAB DATA: White count 12.1, improved from 15 on admission; hemoglobin 11.4; hematocrit 35; platelets 299. INR 2.22. PTT 32.8. D-dimer greater than 1050. Sodium 139, potassium 3.7, chloride 102, bicarb 29, BUN 24, creatinine 1.07, glucose 110, calcium 8.4, magnesium 2.1. Troponin #1, 0.06. Troponin #2, 0.06. Troponin #3, 1.2. Troponin #4, 1.17. BNP #1 of 272. TSH 7.16. BNP #2 of 1295 on admission. Urinalysis, specific gravity 1.005, 1+ protein, 1+ blood, 1+ red blood cells, trace white cells, glucose 2+. Serology for Influenza A and B is negative. Chest x-ray on arrival to the emergency department yesterday showed cardiomegaly and interstitial edema. ECG on admission showed atrial fibrillation with a rapid ventricular rate of 133 beats a minute. She has a left bundle branch block and when this EKG is compared with her EKG of 11/13/17, the QRS has widened further; and when compared with her EKG of July 2015, widened QRS is new. EKG this morning at 6:36 shows atrial fibrillation with a ventricular rate of 88 beats a minute and narrow QRS, inverted T waves and the inverted T waves across the precordial leads replace ST depressions seen on earlier EKGs. There are two echos from 11/23/17. The most recent echo showed an ejection fraction of 40%-45% with mild right ventricular dysfunction, [id number] mitral insufficiency, moderate tricuspid insufficiency, PA pressure at least 28 mmHg but possibly underestimated. Early in the morning when she was more tachycardic, the ejection fraction had been estimated 25%-30% and in 2014, the ejection fraction was 55%-60%. Brain MRI report from 11/15/17 showed diffuse involutional changes, chronic small vessel disease, remote left [employer] territory infarct and I believe the comment that may be an error stating neurosurgery diffusion to suggest acute infarct. IMPRESSION AND PLAN: In summary, Abeba Patel is a 77-year-old woman with longstanding chronic atrial fibrillation, on chronic anticoagulation and also on rate control. She presented with congestive heart failure for the second time this month and with atrial fibrillation, rapid ventricular rate, widened QRS with a rapid rate, rate-related left bundle branch block and a depressed ejection fraction that improved within hours with rate control. She has mildly elevated troponins and significant mitral and tricuspid insufficiency. I would recommend converting or adding diltiazem to a beta jacqueline and titrate to optimize BP and ventricular rate. I would recommend adding an ROBERT inhibitor for her cardiomyopathy and pulmonary hypertension and consider outpatient diuretics, Aldactone would be ideal but we may need to alternate with thiazide or loop diuretic if these are acceptable in the setting of her seizure disorder and medications. As the low ejection fraction seemed to be related to ventricular rate and possibly also contributions with her rate related left bundle branch block, I feel a chemical stress test would be appropriate as opposed to going directly to heart catheterization. Compliance seems to be a chronic recurrent issue with her and continuing to work with her family to optimize medication compliance will be important fpc for her. Additional recommendations will be made pending her response to the above measures. [id number]/[facility] #: [id number] IAN
[2017-11-24] MEDS: Atorvastatin* 20 MG TAB PO SCH (16:37)
[2017-11-25 06:06] LABS: ABS Basophils 0.1 10^3/ul (0-0.2); ABS Eosinophils 0.4 10^3/ul (0-0.6); ABS Lymphocytes 2.3 10^3/ul (1.0-4.8); ABS Monocytes 0.9 10^3/ul (0-0.8); ABS Neutrophils 9.6 10^3/ul (1.5-7.7); ABS Nucleated RBC 0 10^3/ul; Hematocrit 37 % (35-47); Hemoglobin 12.1 g/dl (12.0-16.0); Mean Corpuscular HGB Conc 33 g/dl (31-36); Mean Corpuscular Hemoglobin 30 pg (27-31); Mean Corpuscular Volume 92 fL (80-97); Mean Platelet Volume 9 um3 (7.4-10.4); Nucleated Red Blood Cells % 0; Platelet Count 332 10^3/ul (150-450); Red Blood Count 4.07 10^6/ul (4.0-5.4); Red Cell Distribution Width 14 % (10.5-15); White Blood Count 13.3 10^3/ul (3.5-10.8)
[2017-11-25 06:19] LABS: EGFR Non-African American 56.4 (>60)
--- NOTE | 2017-11-25 08:52 | PN ---
Subjective - Subjective Reason for Note: Discharge Note History: Contingent discharge summary (pending results of NM cardiac stress test) She has had no further dyspnea, palpitations. Her telemetry shows rate controlled atrial fibrillation. She has not had any chest pain. She has had disorientation and this has made her anxious. This happened during her previous hospital stay. 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 History of CVA (cerebrovascular accident) (Chronic) Z86.73 Multiple cerebral infarctions (Chronic) I63.9 Osteoporosis (Chronic) M81.0 Current Medications: Current Medications Acetaminophen (Tylenol Tab*) 650 mg PO Q6H PRN PRN Reason: FEVER/PAIN Aspirin (Aspirin Ec Low Dose*) 81 mg PO QAM [facility] Last Admin: 11/24/17 08:35 Dose: 81 mg Atorvastatin Calcium (Lipitor*) 20 mg PO 1700 [facility] Last Admin: 11/24/17 16:37 Dose: 20 mg Digoxin (Lanoxin Tab*) 0.125 mg PO DAILY [facility] Last Admin: 11/24/17 08:34 Dose: 0.125 mg Lamotrigine (Lamictal Tab(*)) 100 mg PO BID [facility] Last Admin: 11/24/17 21:00 Dose: 100 mg Levetiracetam (Keppra Tab*) 750 mg PO BID [facility] Last Admin: 11/24/17 21:03 Dose: 750 mg Lisinopril (Prinivil Tab*) 5 mg PO DAILY [facility] Metoprolol Succinate (Toprol Xl Tab*) 25 mg PO TID [facility] Last Admin: 11/24/17 21:02 Dose: 25 mg Multi-Ingredient Ointment (Hydrocerin*) 1 applic TOPICAL BID [facility] Last Admin: 11/24/17 21:11 Dose: 1 applic Rivaroxaban (Xarelto(*)) 15 mg PO QAM [facility] Last Admin: 11/24/17 08:35 Dose: 15 mg Home Medications: Home Medications Medication Instructions Recorded Confirmed Type Acetaminophen TAB* [Tylenol TAB*] 650 mg PO Q6H PRN #0 tab 07/24/16 11/23/17 Rx Atorvastatin* [Lipitor 20 MG*] 20 mg PO 1700 #30 tab 07/24/16 11/23/17 Rx Moisturizing CREAM* [Hydrocerin*] 1 applic TOPICAL BID jar 07/24/16 11/23/17 Rx Aspirin EC Low Dose* [Ecotrin EC 81 mg PO QAM 02/05/17 11/23/17 History Low Dose 81 MG*] Diltiazem CD CAP* [Cardizem CD 180 mg PO QAM 02/05/17 11/23/17 History CAP*] Rivaroxaban TAB(*) [Xarelto 15 15 mg PO QAM 02/05/17 11/23/17 History mg(*)] lamoTRIgine TAB(*) [Lamictal 100 mg PO BID 02/05/17 11/23/17 History TAB(*)] Digoxin TAB* [Lanoxin TAB*] 0.125 mg PO DAILY 11/14/17 11/23/17 History levETIRAcetam TAB* [Keppra TAB*] 750 mg PO BID tab 11/16/17 11/23/17 Rx Allergies: Allergies Allergy/AdvReac Type Severity Reaction Status Date / Time No Known Allergies Allergy Verified 02/12/17 08:03 Objective - Vital Signs Vital Signs: Vital Signs 11/24/17 11/24/17 11/24/17 09:00 10:00 10:01 Temperature Pulse Rate 101 98 96 Respiratory 15 37 24 Rate Blood Pressure 173/109 135/73 (mmHg) O2 Sat by Pulse 95 96 97 Oximetry 11/24/17 11/24/17 11/24/17 11:00 11:51 12:19 Temperature 97.8 F 97.8 F Pulse Rate 102 85 85 Respiratory 27 12 12 Rate Blood Pressure 122/65 122/65 (mmHg) O2 Sat by Pulse 97 98 98 Oximetry 11/24/17 11/24/17 11/24/17 13:02 13:11 13:18 Temperature 97.8 F Pulse Rate 85 Respiratory 12 12 24 Rate Blood Pressure 122/65 (mmHg) O2 Sat by Pulse 98 Oximetry 11/24/17 11/24/17 11/24/17 15:02 19:20 20:00 Temperature 98.5 F 97.7 F Pulse Rate 69 70 Respiratory 20 20 20 Rate Blood Pressure 114/65 110/61 (mmHg) O2 Sat by Pulse 94 95 Oximetry 11/25/17 11/25/17 11/25/17 00:23 04:34 04:52 Temperature 97.8 F 99.2 F Pulse Rate 77 135 77 Respiratory 16 16 Rate Blood Pressure 124/62 113/84 (mmHg) O2 Sat by Pulse 95 99 Oximetry - Intake and Output Intake and Output: Intake & Output 11/22/17 11/23/17 11/24/17 11/25/17 11:59 11:59 11:59 11:59 Intake Total 400 460 Output Total 3830 200 Balance -3430 260 Weight 125 lb 0.034 oz 120 lb 13.013 oz 120 lb 13.013 oz Intake: Oral 400 460 Output: Urine 200 Joya 3830 Other: Estimated Void Medium # Bowel Movements 0 # Voids 1 ADLs: Meal Record Start: 11/23/17 11: 21 Freq: 09,13,18 Status: Inactive Protocol: Document 11/23/17 13:00 [id number] (Rec: 11/23/17 13:03 [id number] ICU-M18) Document 11/23/17 18:00 [id number] (Rec: 11/23/17 18:02 [id number] ICU-M18) Document 11/24/17 09:00 [id number] (Rec: 11/24/17 09:25 [id number] ICU-C15) ADLs: Meal Record Start: 11/24/17 12: 19 Freq: DAILY@0900,1400,1800 Status: Active Protocol: Created 11/24/17 12:19 [id number] (Rec: 11/24/17 12:19 [id number] TELE-C11) Document 11/24/17 18:00 [id number] (Rec: 11/24/17 18:56 [id number] TELE-C01) Intake and Output Start: 11/23/17 11: 21 Freq: 06,14,22 Status: Inactive Protocol: Document 11/23/17 12:20 [id number] (Rec: 11/23/17 12:20 [id number] ICU-M18) Document 11/23/17 14:00 [id number] (Rec: 11/23/17 14:02 [id number] ICU-M18) Document 11/23/17 17:24 [id number] (Rec: 11/23/17 17:24 [id number] ICU-M18) Document 11/23/17 22:00 [id number] (Rec: 11/23/17 22:07 [id number] [facility]DC[facility]) Document 11/23/17 22:36 [id number] (Rec: 11/23/17 22:36 [id number] ICU-C11) Document 11/24/17 06:00 [id number] (Rec: 11/24/17 06:11 [id number] ICU-C10) Intake and Output Start: 11/24/17 12: 19 Freq: DAILY@0600,1400,2200 Status: Active Protocol: Created 11/24/17 12:19 [id number] (Rec: 11/24/17 12:19 [id number] TELE-C11) Document 11/24/17 21:24 [id number] (Rec: 11/24/17 21:30 [id number] TELE-C01) Document 11/25/17 06:00 [id number] (Rec: 11/25/17 07:31 [id number] TELE-C08) - Physical Exam General Physical Exam Comment: She was disoriented when I entered, but was easily re-oriented. General: No Cyanosis, No Anemia, No Jaundice Eye Exam: bilateral: EOMI Skin: Normal: Rash Lungs and Chest: Yes: Chest Expansion Full, Chest Expansion Symetrica, Percussion Note Resonant, Vessicular Breath Sounds. No: Crackles, Wheezes Heart Rate and Rhythm: Irregular JVP: Not Elevated Additional Cardiovascular: Yes: Normal Heart Sounds. No: Heart Murmur, Pedal Edema Abdominal Exam: Yes: Soft, Bowel Sounds Present. No: Distention, Abdominal Mass , Abdominal Tenderness - Extremities Cranial Nerves II-XII Intact: Yes Limbs: Normal Power, Normal Tone - Neuro Orientation: A/O x3 Speech: Normal Results - Results Lab Results: Laboratory Results - last 24 hr 11/24/17 11/24/17 11/25/17 09:34 14:03 05:29 WBC RBC Hgb Hct MCV MCH MCHC RDW Plt Count MPV Neut % (Auto) Lymph % (Auto) [place] % (Auto) Eos % (Auto) Baso % (Auto) Absolute Neuts (auto) Absolute Lymphs (auto) Absolute Monos (auto) Absolute Eos (auto) Absolute Basos (auto) Absolute Nucleated RBC Nucleated RBC % Sodium 135 Potassium 4.2 Chloride 101 Carbon Dioxide 25 Anion Gap 9 BUN 25 H Creatinine 0.96 H Est GFR ( Amer) 72.5 Est GFR (Non-Af Amer) 56.4 BUN/Creatinine Ratio 26.0 H Glucose 135 H Calcium 9.1 Magnesium 2.1 Total Bilirubin 0.60 Direct Bilirubin 0.10 Indirect Bilirubin 0.5 AST 23 ALT 37 Alkaline Phosphatase 117 H Troponin I 1.17 H* 0.83 H* C-Reactive Protein 18.04 H Total Protein 6.7 Albumin 3.8 Globulin 2.9 Albumin/Globulin Ratio 1.3 11/25/17 05:30 WBC 13.3 H RBC 4.07 Hgb 12.1 Hct 37 MCV 92 MCH 30 MCHC 33 RDW 14 Plt Count 332 MPV 9 Neut % (Auto) 72.3 Lymph % (Auto) 17.0 L [place] % (Auto) 6.9 Eos % (Auto) 3.0 Baso % (Auto) 0.8 Absolute Neuts (auto) 9.6 H Absolute Lymphs (auto) 2.3 Absolute Monos (auto) 0.9 H Absolute Eos (auto) 0.4 Absolute Basos (auto) 0.1 Absolute Nucleated RBC 0 Nucleated RBC % 0 Sodium Potassium Chloride Carbon Dioxide Anion Gap BUN Creatinine Est GFR ( Amer) Est GFR (Non-Af Amer) BUN/Creatinine Ratio Glucose Calcium Magnesium Total Bilirubin Direct Bilirubin Indirect Bilirubin AST ALT Alkaline Phosphatase Troponin I C-Reactive Protein Total Protein Albumin Globulin Albumin/Globulin Ratio Assessment - Problem List Assessment: Patient Problems Mitral valve regurgitation (Acute) Myocardial ischemia (Acute) Pulmonary edema (Acute) Alcoholism (Chronic) Anticoagulated (Chronic) Atrial fibrillation (Chronic) COPD (chronic obstructive pulmonary disease) (Chronic) Essential (primary) hypertension (Chronic) Hemianopia (Chronic) Hemianopia, homonymous, right (Chronic) History of CVA (cerebrovascular accident) (Chronic) Multiple cerebral infarctions (Chronic) Osteoporosis (Chronic) Seizure (Acute 08/27/15) Volume overload (Acute) Alcohol dependence (Chronic) 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 I discussed her with Dr. Reema Santana and read her cardiology consultation. She is having a stress test today. If it is positive , she will likely require a cardiac catheterization. If it is negative, she is ready for discharge. We have altered her pharmacology - added an ROBERT inhibitor and changed her from diltiazem to beta blockade. Mitral valve regurgitation (Acute) This is moderate to severe - it is not causing any symptoms at present Alcoholism (Chronic) only drinking 1/2 glass wine per day according to Anticoagulated (Chronic) Atrial fibrillation (Chronic) ongoing COPD (chronic obstructive pulmonary disease) (Chronic) Essential (primary) hypertension (Chronic) treated Seizure (Acute 08/27/15) She needs to remain compliant with Rx I discussed the above with the patient, I couldn't get hold of Kevin Patel by phone.
[2017-11-25] MEDS: levETIRAcetam TAB* 500 MG PO SCH (08:53)
[2017-11-25] MEDS: Aspirin EC Low Dose* 81 MG TAB.EC PO SCH (08:54)
[2017-11-25] MEDS: lamoTRIgine TAB(*) 100 MG PO SCH (08:54)
[2017-11-25] MEDS: Rivaroxaban TAB(*) 15 MG PO SCH (08:54)
[2017-11-25] MEDS ORDERED: Lisinopril TAB* 5 MG PO SCH (09:00)
[2017-11-25] MEDS ORDERED: Regadenoson* 0.4 MG/5 ML SYRINGE ONE (11:28)
[2017-11-25] MEDS: Digoxin TAB* 0.125 MG PO SCH (12:21)
[2017-11-25] MEDS: Metoprolol Succinate XL TAB* 25 MG PO SCH (12:21)
[2017-11-25 12:28] VITALS: BP 146/74
--- NOTE | 2017-11-25 13:01 | RAD ---
Edited for charges. INDICATION: Atrial fibrillation low ejection fraction elevated troponins. COMPARISON: There are no prior studies available for comparison. Technique: A single day myocardial perfusion stress study was performed. Initially the resting study was performed. The patient was given an intravenous injection of 10.8 mCi of technetium 99m tetrofosmin and and the heart was imaged in multiple projections. The patient returned later in the day and under the direction of Dr. Bruce, the patient was given intervenous injection of Lexiscan. Subsequently the patient was given intravenous injection of 25.6 mCi of technetium 99m tetrofosmin and the heart was imaged in multiple projections. Images were reconstructed in the axial, sagittal and coronal planes and in a 3- D format. Review of the attenuation corrected images demonstrate small bilateral pleural effusions. FINDINGS: There appears to be normal wall motion and myocardial thickening. The left ventricular ejection fraction was calculated to be 74%. No significant perfusion abnormalities are seen on the post pharmacologic stress and resting images. There is no evidence for infarct or ischemia. IMPRESSION: 1. NO EVIDENCE FOR INFARCT OR ISCHEMIA. 2. SMALL BILATERAL PLEURAL EFFUSIONS. ASSESSMENT: Low risk. MTDD
--- NOTE | 2017-11-26 10:59 | DS ---
CC: Dr. Santana DISCHARGE SUMMARY: DATE OF ADMISSION: 11/23/17 DATE OF DISCHARGE: 11/25/17 DISCHARGE DIAGNOSES: 1. Pulmonary edema. 2. Left ventricular heart failure. 3. Rapid atrial fibrillation with demand ischemia. PROCEDURES: Negative nuclear medicine cardiac stress test. SECONDARY DIAGNOSES: 1. Seizure disorder. 2. Previous cerebrovascular accident. 3. Alcohol dependency. 4. Chronic anticoagulation for atrial fibrillation with Xarelto. 5. Chronic obstructive pulmonary disease. 6. Essential hypertension. HISTORY: Abeba Patel is a 77-year-old right-handed white female. Her presentation is documented in Dr. Brendon Bates's admitting history and physical. In short, she had a sudden onset of acute dysp jose on the morning of presentation. She was found in the emergency room to be in rapid atrial fibril lation. She had acute pulmonary edema. EKG showed an injury current. She was initially placed upon BiPAP, given nitroglycerin, furosemide and by the time he saw her, she was improving. She had a hospitalization 11/13/17 to 11/16/17 after generalized seizures. She had previously had th is diagnosis. The levels of her antiseizure drugs were undetectable suggesting that compliance had b een a major issue in the presentation of the seizures. PHYSICAL EXAMINATION ON THE DAY OF ADMISSION: She was awake and communicating. She was anicteric. C ardiovascular System: Irregular pulse. No murmur. Respiratory System: Bilateral rales, right great er than left. INITIAL ASSESSMENT: Acute pulmonary edema, acute on chronic systolic heart failure, acute hypoxemic respiratory failure, lactic acidosis, history of seizure disorder. INITIAL PLAN: She was brought into the ICU and was treated with nitro paste, furosemide, BiPAP. Ech ocardiogram was obtained prior and post rate control. INVESTIGATIONS AT PRESENTATION: Vital Signs: In the emergency room, temperature 99.1, heart rate 13 9, respirations 34, oxygen saturation 98%, blood pressure 189/107. CBC: White count 15.4, hemoglobi n 13.1, hematocrit 41, platelets 318,000, percent neutrophils 66.6. CMP: Sodium 138, potassium 4.3, chloride 103, bicarbonate 20, BUN 16, creatinine 1.07, EGFR 49.7, glucose 320. Troponin I initially 0.04. Alkaline phosphatase 146, C-reactive protein 29.61. BNP 1295. TSH 7.16. Urinalysis: 1+ pro tein, 1+ blood. IMAGING: Chest x-ray: Cardiomegaly, alveolar and interstitial pulmonary edema. A 12-lead EKG: Rap id atrial fibrillation, rate between 99 and 160, RV conduction delay, QRSD greater than 115 milliseco nds, anterior T-wave changes, ST segment greater than 0.25 milliseconds V2 to V5. Initial echocardio gram report: Multiple segmental wall abnormalities with an estimated ejection fraction 25% to 30%. A second transthoracic echocardiogram was performed after she had rate control, mild decreased LV sys tolic function, ejection fraction 40% to 45%, improved left ventricular systolic function. INVESTIGATIONS DURING THE HOSPITAL STAY: Nuclear medicine stress test on 11/25/17, no evidence of in farction or ischemia, low risk. CONSULTATIONS: Dr. Reema Santana, 11/24/17, report is part of the electronic medical record. She not ed the patient's longstanding chronic atrial fibrillation, chronic anticoagulation, and rate control. She notes presentation with CHF and with atrial fibrillation with a rapid ventricular rate, widened QRS, rate related left bundle-branch block, decreased ejection fraction improving within hours with rate control. Troponins were mildly elevated in that she had significant mitral and tricuspid regurg itation. She suggested changing diltiazem to beta-jacqueline to optimize blood pressure and ventricular rate and starting an ROBERT inhibitor for a possible cardiomyopathy. She considered outpatient cristinati cs. HOSPITAL COURSE: The following morning after admission she felt much better, she was breathing freel y, had no dyspnea, and had good oxygenation on room air. She did not have any chest pain during her entire acute episode. She was somewhat disoriented, but easy to reorient. PHYSICAL EXAMINATION ON DATE OF DISCHARGE: Warm and well perfused. No cyanosis, anemia, jaundice, c lubbing or lymphadenopathy. Vital Signs: Temperature 97.8 degrees Fahrenheit, pulse 77, respiration s 16, blood pressure 124/62, oxygen saturation 95% on room air. Cardiovascular System: Pulse was ir regularly irregular. Heart sounds are normal. No added sounds or murmurs. No pedal edema. Respirat ory System: Chest expansion full and symmetrical, percussion note resonant. Breath sounds vesicular . No crackles or wheezes. Abdominal examination: No distention, masses, tenderness or organomegaly . Nervous System: Alert and oriented after we started our conversation. Conjugate eye movements. Cr anial nerves II through XII intact. Arms and her legs full power and normal tone and coordination. INVESTIGATIONS: I note that her troponin I series peaked at 1.2 at 5:30 on 11/24/[address] down [address] ter that. ASSESSMENT AND PLAN: 1. Paroxysmal rapid atrial fibrillation with pulmonary edema, demand ischemia. She recovered well fr om this. We have changed her from diltiazem to metoprolol and started an ROBERT inhibitor. A nuclear m edicine stress test ruled out coronary artery disease as being the major contributing factor. Given that she is disoriented in the hospital setting, I felt it was safer for her to be discharged home. She will follow up with me as an outpatient within a week. I have prescribed the 2 new medications, metoprolol and lisinopril. 2. Mitral regurgitation. This remains moderate to severe. We may need to take care of howev er, she has no symptoms . 3. Seizure disorder. She has had no seizure since her last admission. 4. Compliance. I have enlisted the help of her , Kevin, in ensuring she takes all of her med ications. She is willing, but clearly is not as able to do this independently as in the past. 5. Alcoholism. I have suggested that she stops drinking alcohol. 6. Anticoagulation. Continue the Xarelto and baby aspirin. 7. Essential hypertension. This should be helped both by the lisinopril and the metoprolol. 8. History of cerebrovascular accident. This is stable. DISCHARGE MEDICATIONS: 1. Lisinopril 5 mg daily. 2. Metoprolol XL 25 mg t.i.d. 3. Acetaminophen 650 mg q.6 hours as needed. 4. Atorvastatin 20 mg q.h.s. 5. Aspirin 81 mg daily. 6. Lamotrigine 100 mg twice daily. 7. Rivaroxaban 15 mg q.a.m. 8. Digoxin 0.125 mg daily. 9. Levetiracetam (Keppra) 750 mg b.i.d. [id number]/[facility] #: [id number]
== END 2017-11-25 15:07 | disposition home or self-care (01) | DRG 291 ==
LOC: ED 09:05 → CHICATH 09:12 → ICU 10:24 → MEDTELE 11-24 12:49
PROVIDERS: ADMIT Internal Medicine Critical Care Medicine; ATTEND Internal Medicine
PROC: 5A09457 Assistance with Respiratory Ventilation, 24-96 Consecutive Hours, Continuous Positive Airway Pressure (ICD-10-PCS; principal; 2017-11-23)
DX: I11.0 Hypertensive heart disease with heart failure (principal); J96.01 Acute respiratory failure with hypoxia; E87.2 Acidosis; I48.0 Paroxysmal atrial fibrillation; G40.909 Epilepsy, unspecified, not intractable, without status epilepticus; I42.9 Cardiomyopathy, unspecified; I27.20 Pulmonary hypertension, unspecified; I24.8 Other forms of acute ischemic heart disease; I08.1 Rheumatic disorders of both mitral and tricuspid valves; F03.90 Unspecified dementia, unspecified severity, without behavioral disturbance, psychotic disturbance, mood disturbance, and anxiety; H91.90 Unspecified hearing loss, unspecified ear; F10.20 Alcohol dependence, uncomplicated; Y90.9 Presence of alcohol in blood, level not specified; I50.1 Left ventricular failure, unspecified; I50.23 Acute on chronic systolic (congestive) heart failure; I25.10 Atherosclerotic heart disease of native coronary artery without angina pectoris; J44.9 Chronic obstructive pulmonary disease, unspecified; I44.7 Left bundle-branch block, unspecified; M81.0 Age-related osteoporosis without current pathological fracture; Z87.891 Personal history of nicotine dependence; Z98.42 Cataract extraction status, left eye; Z98.41 Cataract extraction status, right eye; Z97.4 Presence of external hearing-aid; Z82.3 Family history of stroke; I69.321 Dysphasia following cerebral infarction; Z79.82 Long term (current) use of aspirin; Z79.01 Long term (current) use of anticoagulants
CPT/HCPCS: 36415; 71010; 78452; 80048; 80053; 80076; 81003; 81015; 82550; 82553; 83605; 83690; 83735; 83880; 84100; 84443; 84484; 85025; 85379; 85610; 85730; 86140; 87502; 87641; 93005; 93017; 93306; 93308; 94660; 94760; A9270-GY; A9502; J1644; J1940; J2270; J2785

== ENCOUNTER 2018-03-10 14:26 | Observation (INO) | payer MEDICARE, OTHER ==
--- OUTSIDE RECORDS SUMMARY | 2018-03-10 14:33 | XMS REPORT ---
:1940 External Reference #:[id number] Author Organization [facility] Address [address] [address] Phone [phone] Care Team Providers Name Role Phone Jigar Biswas MD Primary Care Physician Unavailable Payers Type Date Identification Numbers Payment Provider Subscriber Medicare Primary Policy Number: [id number] Medicare Abeba Patel PayID: [id number] [address] [place] [address] Medigap Part B Policy Number: [id number] [employer] Abeba Patel Group Number: [id number] [address] PayID: [id number] [place] [address] Problems Date Description Provider Status Onset: 01/18/2015 Localization-related epilepsy Edgar Pandey M.D. Active Onset: 02/08/2017 Carpal tunnel syndrome of left wrist Vick Goldberg MD Active Onset: 02/08/2017 Oth disp fx of upper end l humer, Vick Goldberg MD Active subs for fx w routn heal Onset: 01/21/2018 Cardiomyopathy Reema Santana M.D. Active Onset: 01/21/2018 Tricuspid valve disorder, Remea Santana M.D. Active non-rheumatic Onset: 01/21/2018 Mitral valve disorder Reema Santana M.D. Active Onset: 01/21/2018 Chronic atrial fibrillation Reema Santana M.D. Active Social History Type Date Description Comments Marital Status Lives With Occupation Retired ETOH Use Consumes 3 glasses of wine Varies based on PRN per day medication use Smoking Patient is a former smoker Quit Cigarettes 1971, quit pipe in 1996 Recreational Drug Use Denies Drug Use Daily Caffeine Consumes on average 2 cups of regular coffee per day Exercise Type/Frequency Does not exercise Allergies, Adverse Reactions, Alerts Date Description Reaction Status Severity Comments 01/18/2015 NKDA active Medications Medication Date Status Form Strength Qnty SIG Indications Ordering Provider Coreg 03/02/ Active Tablets 3.125mg 60tabs 1 by mouth I42.8 Martha osei Foster, daily N.P. Levetiracetam 12/16/ Active Tablets 750mg 60tabs 1 po bid Egdar Pandey M.D. Xarelto / Active Tablets 15mg 1 by mouth Unknown 0000 every day Digoxin / Active Tablets 125mcg 2 by mouth Unknown 0000 every day Lamictal / Active Tab 100mg 1 tab by Edgar Scott 0000 mouth Katherin twice a M.DChasidy day Aspirin / Active Chewtabs 81mg 1 by mouth Unknown 0000 every day Lipitor / Active Tablets 20mg one tab by Unknown 0000 mouth every night at bedtime Clobetasol / Active Cream 0.05% applied to Unknown Propionate 0000 affected area 1-2 times daily ( using once daily ) Mupirocin / Active Ointment 2% apply Unknown 0000 affected areas once daily Percocet 11/18/ Hx Tablets 5-325mg 30tabs 1 tab by Dylan Cruz 2015 - mouth Yusuf, 11/21/ every 4-6 2017 hours Percocet 11/11/ Hx Tablets 5-325mg 30tabs 1 tab by Dylan Cruz 2015 - mouth Yusuf, 11/21/ every 4-6 2017 hours Digox 01/17/ Hx Tablets 125mcg 30tabs 2 by mouth Edgar Scott 2014 - every day Katherin 12/30/ MChasidyDChasidy 2014 Lamotrigine / Hx Tablets 100mg 1 tab po Unknown 0000 - bid 2014 Furosemide / Hx Tablets 20mg 1 by mouth Unknown 0000 - every 12/30/ morning 2014 Diltiazem HCL / Hx Caps ER 360mg 1 by mouth Unknown ER 0000 - 24HR every day 2017 Triamcinolone / Hx Ointment 0.5% apply to Unknown Acetonide 0000 - affected 06/21/ area twice 2017 daily as needed Potassium / Hx Tablets ER 20Meq 1 by mouth Unknown Chloride Lourdes 0000 - every day ER 2014 Levetiracetam / Hx Tablets 500mg 60tabs 1 2 by Chhaya 0000 - mouth MD Sharron 12/16/ twice a 2018 day Cartia XT / Hx Caps ER 180mg Unknown 0000 - 24HR 2017 Metoprolol / Hx Tablets ER 25mg take 1 Unknown Succinate ER 0000 - 24HR tablet by 2018 three times a day Lisinopril / Hx Tablets 5mg take 1 Unknown 0000 - tablet by mouth once 2018 daily Vital Signs Date Vital Result Comment 03/02/2018 Height 61 inches 5'1" Weight 121.00 lb Heart Rate 80 /min BP Systolic Sitting 132 mmHg lue reg cuff BP Diastolic Sitting 65 mmHg lue reg cuff Respiratory Rate 16 /min BMI (Body Mass Index) 22.9 kg/m2 Ejection Fraction 55-60% 02/25/2018 01/21/2018 Height 61 inches 5'1" Weight 121.50 lb with shoes Heart Rate 92 /min BP Systolic Sitting 138 mmHg Ra, reg BP Diastolic Sitting 76 mmHg Ra, reg BP Systolic Standing 140 mmHg Ra, reg BP Diastolic Standing 76 mmHg Ra, reg BMI (Body Mass Index) 23.0 kg/m2 Ejection Fraction 40%-45% 11/23/17 echo 12/21/2017 Height 61 inches 5'1" Weight 122.00 lb Heart Rate 85 /min BP Systolic Sitting 130 mmHg BP Diastolic Sitting 82 mmHg Respiratory Rate 15 /min BMI (Body Mass Index) 23.0 kg/m2 11/30/2017 Height 61 inches 5'1" Weight 125.00 lb Heart Rate 74 /min BP Systolic 132 mmHg BP Diastolic 82 mmHg Respiratory Rate 14 /min BMI (Body Mass Index) 23.6 kg/m2 08/05/2017 Height 61 inches 5'1" Weight 126.00 lb Heart Rate 68 /min Respiratory Rate 16 /min Body Temperature 96.9 F Pain Level 0 BMI (Body Mass Index) 23.8 kg/m2 06/22/2017 Height 61 inches 5'1" Weight 124.50 lb Heart Rate 85 /min BP Systolic Sitting 136 mmHg BP Diastolic Sitting 82 mmHg Respiratory Rate 16 /min BMI (Body Mass Index) 23.5 kg/m2 05/03/2017 Height 61 inches 5'1" Weight 121.00 lb Respiratory Rate 16 /min Body Temperature 98.2 F Pain Level 1 BMI (Body Mass Index) 22.9 kg/m2 03/22/2017 Height 61 inches 5'1" Weight 121.00 lb Heart Rate 84 /min BP Systolic 120 mmHg BP Diastolic 77 mmHg Respiratory Rate 16 /min Body Temperature 98.1 F Pain Level 0 BMI (Body Mass Index) 22.9 kg/m2 02/22/2017 Height 61 inches 5'1" Weight 121.00 lb Heart Rate 84 /min BP Systolic 127 mmHg BP Diastolic 83 mmHg Respiratory Rate 15 /min Body Temperature 98.3 F Pain Level 0 BMI (Body Mass Index) 22.9 kg/m2 02/08/2017 Height 61 inches 5'1" Weight 121.00 lb Heart Rate 80 /min BP Systolic Sitting 132 mmHg BP Diastolic Sitting 82 mmHg Respiratory Rate 16 /min Body Temperature 98.7 F Pain Level 1 BMI (Body Mass Index) 22.9 kg/m2 01/11/2017 Height 62 inches 5'2" Weight 120.00 lb Heart Rate 86 /min BP Systolic 126 mmHg BP Diastolic 84 mmHg Respiratory Rate 15 /min Pain Level 0 BMI (Body Mass Index) 21.9 kg/m2 12/21/2016 Height 62 inches 5'2" Weight 120.00 lb Pain Level 0 BMI (Body Mass Index) 21.9 kg/m2 12/02/2016 Height 62 inches 5'2" Weight 120.00 lb Respiratory Rate 20 /min Pain Level 2 BMI (Body Mass Index) 21.9 kg/m2 11/18/2016 Height 62 inches 5'2" Weight 120.00 lb Respiratory Rate 18 /min Pain Level 5 BMI (Body Mass Index) 21.9 kg/m2 11/16/2016 Height 62 inches 5'2" Weight 120.00 lb Heart Rate 84 /min BP Systolic Sitting 136 mmHg BP Diastolic Sitting 78 mmHg BMI (Body Mass Index) 21.9 kg/m2 11/11/2016 Height 62 inches 5'2" Weight 120.00 lb Heart Rate 86 /min BP Systolic 152 mmHg BP Diastolic 90 mmHg Respiratory Rate 22 /min Pain Level 7 BMI (Body Mass Index) 21.9 kg/m2 08/04/2016 Height 62 inches 5'2" Weight 122.00 lb Heart Rate 68 /min BP Systolic Sitting 138 mmHg BP Diastolic Sitting 86 mmHg Respiratory Rate 14 /min BMI (Body Mass Index) 22.3 kg/m2 05/12/2016 Height 62 inches 5'2" Weight 119.00 lb Heart Rate 78 /min Irregular BP Systolic Sitting 130 mmHg BP Diastolic Sitting 80 mmHg Respiratory Rate 20 /min BMI (Body Mass Index) 21.8 kg/m2 04/24/2015 Height 62 inches 5'2" Weight 117.00 lb Heart Rate 76 /min BP Systolic Sitting 136 mmHg BP Diastolic Sitting 80 mmHg Respiratory Rate 16 /min BMI (Body Mass Index) 21.4 kg/m2 01/18/2015 Height 62 inches 5'2" Weight 120.00 lb Heart Rate 80 /min Irregular BP Systolic Standing 158 mmHg BP Diastolic Standing 72 mmHg Respiratory Rate 20 /min BMI (Body Mass Index) 21.9 kg/m2 Results Test Date Test Result H/L Range Note Comp Metabolic Panel 07/10/2016 Sodium 137 mmol/L 133-145 Potassium 3.8 mmol/L 3.5-5.0 Chloride 103 mmol/L 101-111 Co2 Carbon Dioxide 27 mmol/L 22-32 Anion Gap 7 mmol/L 2-11 Glucose 109 mg/dL High 70-100 Blood Urea Nitrogen 22 mg/dL 6-24 Creatinine 0.80 mg/dL 0.51-0.95 BUN/Creatinine Ratio 27.5 High 8-20 Calcium 9.1 mg/dL 8.6-10.3 Total Protein 7.1 g/dL 6.4-8.9 Albumin 4.1 g/dL 3.2-5.2 Globulin 3.0 g/dL 2-4 Albumin/Globulin Ratio 1.4 1-3 Total Bilirubin 0.40 mg/dL 0.2-1.0 Alkaline Phosphatase 94 U/L 34-104 Alt 15 U/L 7-52 Ast 15 U/L 13-39 Egfr Non- 69.7 >60 Egfr 89.7 >60 1 CBC Auto Diff 07/10/2016 White Blood Count 12.4 10^3/uL High 3.5-10.8 Red Blood Count 4.46 10^6/uL 4.0-5.4 Hemoglobin 13.0 g/dL 12.0-16.0 Hematocrit 41 % 35-47 Mean Corpuscular Volume 91 fL 80-97 Mean Corpuscular Hemoglobin 29 pg 27-31 Mean Corpuscular HGB Conc 32 g/dL 31-36 Red Cell Distribution Width 14 % 10.5-15 Platelet Count 247 10^3/uL 150-450 Mean Platelet Volume 8 um3 7.4-10.4 Abs Neutrophils 7.7 10^3/uL 1.5-7.7 Abs Lymphocytes 3.1 10^3/uL 1.0-4.8 Abs Monocytes 1.1 10^3/uL High 0-0.8 Abs Eosinophils 0.4 10^3/uL 0-0.6 Abs Basophils 0.1 10^3/uL 0-0.2 Abs Nucleated RBC 0.01 10^3/uL Granulocyte % 62.0 % 38-83 Lymphocyte % 24.9 % Low 25-47 Monocyte % 9.2 % High 1-9 Eosinophil % 2.9 % 0-6 Basophil % 1.0 % 0-2 Nucleated Red Blood Cells % 0 1 Because ethnic data is not always readily available, this report includes an eGFR for both -Americans and non- Americans. The National Kidney Disease Education Program (NKDEP) does not endorse the use of the MDRD equation for patients that are not between the ages of 18 and 70, are , have extremes of body size, muscle mass, or nutritional status, or are non- or non-. According to the National Kidney Foundation, irrespective of diagnosis, the stage of the disease is based on the level of kidney function: Stage Description GFR(mL/min/1.73 m(2)) 1 Kidney damage with normal or decreased GFR 90 2 Kidney damage with mild decrease in GFR 60-89 3 Moderate decrease in GFR 30-59 4 Severe decrease in GFR 15-29 5 Kidney failure <15 (or dialysis) Procedures Date CPT Code Description Status 03/02/2018 83977 EKG Tracing & Interpretation Completed 02/25/2018 78389 ECHO Transthoracic, Real-Time 2D With Doppler And Color Completed Flow 02/25/2018 05360 ECHO Transthoracic, Real-Time 2D With Doppler And Color Completed Flow 01/21/2018 35323 EKG Tracing & Interpretation Completed 11/25/2017 85076 Treadmill Interp/Report Only Completed 11/25/2017 68471 Stress Test Supervsn W/Out I/R Completed 11/24/2017 45501 EKG, Interpretation Only Completed 11/23/2017 66662 ECHO Transthorasic Realtime 2D W Doppler & Color Completed Flow Hosp 11/23/2017 82487 ECHO Transthorasic Realtime 2D W Doppler & Color Completed Flow Hosp 11/23/2017 65036 EKG, Interpretation Only Completed 11/15/2017 29929 EEG Recording Awake & Drowsy Completed 02/12/2017 77820 Carpal Tunnel Release Completed 02/12/2017 59298 Carpal Tunnel Release Completed 11/18/2016 68873 Closed trtmt prox humeral fx Completed 07/16/2016 14368 EEG Recording Awake & Drowsy Completed 08/27/2015 79911 Electroencephalogram EEG Extended Monitoring Over 1 Completed Hour 08/27/2015 89721 ECHO Transthorasic Realtime 2D W Doppler & Color Completed Flow Hosp 08/08/2013 61132 ECHO Transthoracic, Real-Time 2D With Doppler And Color Completed Flow 07/25/2013 24735 EEG Recording Awake & Drowsy Completed 07/21/2013 76129 ECHO Transthorasic Realtime 2D W Doppler & Color Completed Flow Hosp Encounters Type Date Location Provider CPT E/M Dx Office Visit 03/02/2018 [facility] Martha Sahni NShannan 80858 I42.8 12:00p [facility] I48.2 I34.0 I36.1 Office Visit 01/21/2018 11:20a [facility] Jeffry Santana M.D. 49624 I48.2 [facility] At [facility] I42.8 I34.0 I36.1 R21 Office Visit 12/21/2017 1:45p [facility] Edgar Pandey, 37197 G40.209 Services Of Coreen Werner I69.398 Z91.19 R45.4 Office Visit 11/30/2017 1:15p [facility] Edgar Pandey 10364 G40.209 Services Of Coreen Werner I69.398 R45.4 Z91.19 Office Visit 11/25/2017 1:46p [facility] Lit Robins M.D. 60391 I42.9 I48.91 Office Visit 11/24/2017 2:42p [facility] Of Reema Santana M.D. 88863 I50.9 Administrative Director I48.2 Office Visit 11/23/2017 1:43p [facility] Brendon Bates D.O. 28549 J96.01 J81.0 I34.0 I24.8 Office Visit 11/16/2017 10:44a [facility] Edwinbhumika Wei, 33839 G40.209 M.DChasidy I69.398 Office Visit 11/15/2017 10:43a [facility] Geo Carvajal, 67077 G40.209 M.DChasidy I69.398 Office Visit 11/14/2017 9:59a [place] [address] R56.9 I48.91 I69.398 I69.320 I69.392 Office Visit 11/14/2017 10:42a [facility] Kevin Irvin, 78063 G40.209 MD I69.398 Office Visit 11/13/2017 10:19a [facility], 03466 G40.909 Assoc, Hospitalists JAVA J2EE LEAD E87.2 I48.91 J96.01 Office Visit 08/05/2017 9:00a [facility] Vick Goldberg, 09735 G56.02 [place] MCDANIELS S42.292D S42.142D Office Visit 06/22/2017 10:15a [facility] Edgar Scott 15835 G40.109 Al[place]so Pandey I69.398 Z79.899 Office Visit 05/03/2017 11:30a [facility] Vick Anthony Yusuf 62194 G56.02 [place] MCDANIELS S42.292D S42.142D M19.042 M19.041 Office Visit 03/22/2017 10:45a [facility] Vick Anthony Yusuf 97558 G56.02 [place] MCDANIELS S42.292D S42.142D M25.642 M19.042 Office Visit 02/22/2017 2:15p [facility] Vick Goldberg 23766 G56.02 [place] MCDANIELS S42.292D S42.142D M25.642 Office Visit 01/11/2017 11:15a [facility] Vick Goldberg, 14191 G56.02 [place] MCDANIELS S42.292D S42.142D Office Visit 12/21/2016 11:30a [facility] Vick Cruz 84145 S42.292D Of [place] Goldberg MD G56.02 Office Visit 11/16/2016 3:00p [facility] Of [facility] [place]ril [address] Winston Office Visit 11/16/2016 1:30p [facility] Edgar Scott 71573 I69.398 Alphonso Pandey G40.109 Office Visit 11/11/2016 2:20p [facility] Vick Cruz 89431 S42.292A Of [place] Goldberg MD Office Visit 08/04/2016 4:00p [facility] Edgar Pandey, 51019 I69.398 Services Of Coreen Werner G40.109 Office Visit 07/17/2016 3:10p [facility] [address] I63.9 Office Visit 07/16/2016 3:07p [facility] [address] I63.9 I10 I48.91 Office Visit 07/15/2016 3:06p [facility] [address] I63.9 I10 I48.91 Office Visit 05/12/2016 11:45a [facility] Edgar Scott 87601 G40.109 Services Of Coreen Pandey M.D. Office Visit 08/29/2015 10:44a [facility] Edgar Scott 47484 G40.109 Alphonso Pandey Office Visit 08/28/2015 2:06p [facility] Edgar Scott 32996 G40.109 Alphonso Pandey Office Visit 08/28/2015 12:35p [facility], Kevin Walker, 85679 518.81 Hospitalists Alphonso 780.39 288.60 276.1 Office Visit 08/27/2015 2:05p [facility] Edgar Scott 34213 G40.109 Alphonso Pandey R94.01 Office Visit 08/27/2015 12:34p [facility] David Rubin D.O. 73848 780.39 Hospitalists 518.81 288.60 276.1 Office Visit 04/24/2015 9:45a [facility] Edgar Pandey, 83890 434.11 Services Of [facility] Al[place]so 345.40 438.89 438.7 Office Visit 01/18/2015 11:00a [facility] Edgar Pandey, 51300 434.11 M.DChasidy 345.40 Office Visit 01/07/2015 8:27a [facility] Dani Garcia 91920 780.39 435.9 Office Visit 08/16/2013 11:00a [facility] Edgar Pandey, 10786 434.11 Services Of Coreen Werner Office Visit 07/20/2013 10:48a [facility] Isabel Cottrell, 00420 434.91 Services Of [facility] Al[place]so Plan of Care Future Appointment(s):03/09/2018 2:15 pm - Nurse Visit IC at [facility]03/08/2018 2:00 pm - Nurse Visit IC at [facility]2017 9:20 am - Reema Santana M.D. at [facility]04/12/2018 10:00 am - Edgar Pandey M.D. at [facility]2017 - Martha Sahni, N.P.I42.8 Other cardiomyopathiesNew Medication:Coreg 3.125 mgNew Orders:Holter MonitorFollow up:as scheduled with akin Recommendations:Discontinue Metoprolol Start coreg 3.125 mg twice daily Call in 1 week with BP readings. Likely we will increase to 6.25mg in 1 week, if no lightheadedness. We would like to get a holter monitor to evalutate you heart rates once you have been on coreg for 1-2 weeks.I48.2 Chronic atrial ewmnomjxctavJ51.0 Nonrheumatic mitral (valve) qiumyzkjsvzdsO45.1 Nonrheumatic tricuspid (valve) insufficiency
[2018-03-10 15:29] LABS: Hematocrit 40 % (35-47); Hemoglobin 13.1 g/dl (12.0-16.0); Mean Corpuscular HGB Conc 33 g/dl (31-36); Mean Corpuscular Hemoglobin 30 pg (27-31); Mean Corpuscular Volume 92 fL (80-97); Mean Platelet Volume 8.4 um3 (7.4-10.4); Platelet Count 210 10^3/ul (150-450); Red Blood Count 4.32 10^6/ul (4.0-5.4); Red Cell Distribution Width 15 % (10.5-15); White Blood Count 11.4 10^3/ul (3.5-10.8)
--- NOTE | 2018-03-10 15:48 | RAD ---
INDICATION: Left knee swelling. TECHNIQUE: 4 views of the left knee were obtained. FINDINGS: The bones are normal alignment. There is a large joint effusion present. No fracture is seen. There is a lucent lesion seen in the AP view which projects over the distal metaphysis of the femur measuring 3.0 x 2.2 cm in size. This is not seen on the lateral view and may be artifactual. 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 IMPRESSION: 1. LARGE JOINT EFFUSION, NO FRACTURE IS SEEN. 2. POSSIBLE LUCENT LESION IN THE DISTAL FEMUR. RECOMMEND AN MRI OF THE KNEE FOR FURTHER EVALUATION.
[2018-03-10 15:52] LABS: EGFR Non-African American 93.3 (>60); Uric Acid 5.3 mg/dL (2.3-6.6)
--- NOTE | 2018-03-10 20:21 | ED ---
Ever Ramirez Stephanie, scribed for Colin Auguste MD on 03/10/18 at 1454 . Lower Extremity - HPI Summary HPI Summary: The pt is a 77 y/o F presenting to the ED with c/o L knee pain that began last night. The L knee is unable to bear weight. The pt denies fever, dysuria, hematuria, diaphoresis and chills. She denies recent mechanical fall. The pt denies recent illness. - History of Current Complaint Chief Complaint: EDExtremityLower Stated Complaint: LT KNEE PAIN Time Seen by Provider: 03/10/18 14:37 Hx Obtained From: Patient Onset of Pain: Days - 1 Onset/Duration: Still Present Severity Currently: Moderate Pain Intensity: 0 Pain Scale Used: 0-10 Numeric Timing: Intermittent Location: Is Discrete @ - L knee Associated Signs And Symptoms: Positive: Swelling, Knee Pain - L. Negative: Redness Aggravating Factor(s): Standing, Movement Alleviating Factor(s): Rest Able to Bear Weight: No - Allergies/Home Medications Allergies/Adverse Reactions: Allergies Allergy/AdvReac Type Severity Reaction Status Date / Time No Known Allergies Allergy Verified 02/12/17 08:03 Home Medications: Home Medications Carvedilol TAB* [Coreg TAB*] 3.125 mg PO BID 03/10/18 [History Confirmed ] Clobetasol 0.05% OINT* 1 applic TOPICAL BID 03/10/18 [History Confirmed 03/10/18 ] Mupirocin 2% OINT* [Bactroban 2 % Oint*] 1 applic TOPICAL BID 03/10/18 [History Confirmed 03/10/18] PMH/Surg Hx/FS Hx/Imm Hx Endocrine/Hematology History: Denies: Hx Diabetes, Hx Anemia Cardiovascular History: Reports: Hx Coronary Artery Disease, Hx Hypertension, Other Cardiovascular Problems/Disorders - NEW ONSET A-FIB Denies: Hx Angina, Hx Congestive Heart Failure, Hx Hypercholesterolemia, Hx Myocardial Infarction, Hx Pacemaker/ICD, Hx Valvular Heart Disease Respiratory History: Reports: Hx Chronic Obstructive Pulmonary Disease (COPD), Other Respiratory Problems/Disorders - PRIOR SMOKER. QUIT 1994 Denies: Hx Asthma, Hx Chronic Bronchitis, Hx Pneumonia, Hx Sleep Apnea GI History: Denies: Hx Jaundice History: Reports: Other Problems/Disorders - HX HEMATURIA Denies: Hx Renal Disease Musculoskeletal History: Reports: Hx Orthopedic Injury - LEFT HUMEROUS FRACTURE , Hx Osteoporosis, Other Musculoskeletal History - OSTEOPOROSIS Denies: Hx Arthritis Sensory History: Reports: Other Sensory Impairments Denies: Hx Cataracts - removed bilateraly, Hx Contacts or Glasses, Hx Eye Injury, Hx Hearing Aid Opthamlomology History: Reports: Other Sensory Impairments Denies: Hx Cataracts - removed bilateraly, Hx Contacts or Glasses, Hx Eye Injury Neurological History: Reports: Hx Seizures, Hx Transient Ischemic Attacks (TIA) Denies: Hx Developmental Delay, Hx Headaches, Hx Migraine, Hx Nerve Disease, Hx Spinal Cord Injury, Other Neuro Impairments/Disorders Comment Only: Hx Dementia - hx of STM deficits Psychiatric History: Denies: Hx Anxiety, Hx Depression, Hx Panic Disorder - Surgical History Surgery Procedure, Year, and Place: GROWTH ON UTERUS REMOVED/ FIBROID 1972 Hx Anesthesia Reactions: No - Immunization History Date of Tetanus Vaccine: Up to date Date of Influenza Vaccine: fall 2014 Infectious Disease History: No Infectious Disease History: Denies: Traveled Outside the [place] in Last 30 Days - Family History Known Family History: Positive: Other - CVA; prior reports state pt is unaware of her FHx - Social History Occupation: Retired Lives: With Family Alcohol Use: Daily Alcohol Amount: x2/day Hx Substance Use: No Substance Use Type: Reports: None Hx Tobacco Use: Yes Smoking Status (MU): Former Smoker Type: Cigarettes, Pipe Amount Used/How Often: 1/2 PPD - QUIT IN 1995 Length of Time of Smoking/Using Tobacco: 55 years Have You Smoked in the Last Year: No Review of Systems Negative: Fever, Chills Negative: Erythema Negative: Sore Throat Negative: Chest Pain Negative: Shortness Of Breath, Cough Negative: Abdominal Pain, Vomiting, Nausea Negative: dysuria, hematuria Positive: Edema - L knee, Other - L knee pain. Negative: Myalgia Negative: Rash Neurological: Negative - dizziness All Other Systems Reviewed And Are Negative: Yes Physical Exam - Summary Physical Exam Summary: Constitutional: Well-developed, Well-nourished, Alert. (-) Distressed Skin: Warm, Dry HENT: Normocephalic; Atraumatic Eyes: Conjunctiva normal Neck: Musculoskeletal ROM normal neck. (-) JVD, (-) Stridor, (-) Tracheal deviation Cardio: Rhythm regular, rate normal, Heart sounds normal; Intact distal pulses; The pedal pulses are 2+ and symmetric. Radial pulses are 2+ and symmetric. (-) Murmur Pulmonary/Chest wall: Effort normal. (-) Respiratory distress, (-) Wheezes, (-) Rales Abd: Soft, (-) Tenderness, (-) Distension, (-) Guarding, (-) Rebound Musculoskeletal:moderate sized L knee effusion, no erythema, nontender to palpation Lymph: (-) Cervical adenopathy Neuro: Alert, Oriented x3 Psych: Mood and affect Normal Triage Information Reviewed: Yes Vital Signs On Initial Exam: Initial Vitals Temp Pulse Resp BP Pulse Ox 99 F 56 18 154/96 96 03/10/18 14:33 03/10/18 14:33 03/10/18 14:33 03/10/18 14:33 03/10/18 14:33 Vital Signs Reviewed: Yes Procedures - Procedure Summary Procedure Summary: PROCEDURE NAME: L KNEE ASPIRATION RISKS INCLUDING BLEEDING, INFECTION, PAIN EXPLAINED. INDICATION: KNEE EFFUSION DETAILS: TIME OUT DONE WITH ARNALDO ALFONSO RN. PREPPED AND DRAPED IN USUAL STERILE FASHION. 5 ML LIDOCAINE INJECTED INTO WHEAL AND L KNEE JOINT. 18 GA NEEDLE ASPIRATED DURING INSERTION, HELD PARALLEL TO BED WITH KNEE AT 10 DEGREES FLEXION. 35 ML TRACEY BLOOD OBTAINED FROM JOINT SPACE. SUPRAPATELLAR MILKING UTILIZED TO MAXIMIZE DRAINAGE. POST PROCEDURE THE PATIENT FEELS MUCH BETTER AND IS AMBULATORY Diagnostics - Vital Signs Vital Signs Temp Pulse Resp BP Pulse Ox 03/10/18 14:33 99 F 56 18 154/96 96 - Laboratory Lab Results: Lab Results 03/10/18 03/10/18 03/10/18 Range/Units 15:15 15:15 19:51 WBC 11.4 H (3.5-10.8) 10^3/ul RBC 4.32 (4.0-5.4) 10^6/ul Hgb 13.1 (12.0-16.0) g/dl Hct 40 (35-47) % MCV 92 (80-97) fL MCH 30 (27-31) pg MCHC 33 (31-36) g/dl RDW 15 (10.5-15) % Plt Count 210 (150-450) 10^3/ul MPV 8.4 (7.4-10.4) um3 ESR 13 (0-40) mm/Hr Sodium 140 (139-145) mmol/L Potassium 4.3 (3.5-5.0) mmol/L Chloride 103 (101-111) mmol/L Carbon Dioxide 29 (22-32) mmol/L Anion Gap 8 (2-11) mmol/L BUN 15 (6-24) mg/dL Creatinine 0.62 (0.51-0.95) mg/dL Est GFR ( Amer) 120.0 (>60) Est GFR (Non-Af Amer) 93.3 (>60) BUN/Creatinine Ratio 24.2 H (8-20) Glucose 124 H (70-100) mg/dL Uric Acid 5.3 (2.3-6.6) mg/dL Calcium 9.1 (8.6-10.3) mg/dL Total Bilirubin 1.10 H (0.2-1.0) mg/dL AST 15 (13-39) U/L ALT 14 (7-52) U/L Alkaline Phosphatase 79 (34-104) U/L C-Reactive Protein 15.37 H (< 5.00) mg/L Total Protein 7.0 (6.4-8.9) g/dL Albumin 4.1 (3.2-5.2) g/dL Globulin 2.9 (2-4) g/dL Albumin/Globulin Ratio 1.4 (1-3) Fluid Source Synovial fluid Fluid Volume Pending Fluid Color Pending Fluid Appearance Pending Fluid WBC Pending Fluid RBC Pending Fluid Tot Cell Count Pending Fluid Neutrophils Pending Fluid Cell Count Rvw By Pending Result Diagrams: 03/10/18 15:15 03/10/18 15:15 Lab Statement: Any lab studies that have been ordered have been reviewed, and results considered in the medical decision making process. - Radiology Knee XRay Xray Interpretation: Positive (See Comments) Radiology Interpretation Completed By: Radiologist - 1. LARGE JOINT EFFUSION, NO FRACTURE IS SEEN. 2. POSSIBLE LUCENT LESION IN THE DISTAL FEMUR. RECOMMEND AN MRI OF THE KNEE FOR FURTHER EVALUATION. ED physician has reviewed this report. Re-Evaluation - Re-Evaluation First Eval Re-Evaluation Time: 17:10 Change: Unchanged - ED physician explained the risk for knee aspiration. The pt understands the risk and accepts the risk. Lower Extremity Course/Dx - Course Course Of Treatment: At 17:10, ED physician explained the risk for knee aspiration. The pt understands the risk and accepts the risk. - Diagnoses Provider Diagnoses: Hemarthrosis Discharge - Sign-Out/Discharge Documenting (check all that apply): Discharge - ADMIT - Discharge Plan Condition: Good Disposition: ADMITTED TO [facility] Referrals: Jigar Biswas MD [Primary Care Provider] - - Billing Disposition and Condition Condition: GOOD Disposition: [facility] [place] The documentation as recorded by the Ever kelley Stephanie accurately reflects the service I personally performed and the decisions made by Kalyani barger Jerry, MD.
--- NOTE | 2018-03-11 03:56 | HP ---
H&P (Free Text) History and Physical: PCP: Adela Biswas MD Date/Time: 03/11/2018 0020 CC: L knee pain HPI: Mrs Patel is a 77YO female poor historian who likely has early to moderate dementia HX L occipital CVA w/ subsequent seizures, chronic AFIB on rivaroxaban , COPD, & CHF who initially has significant difficulty decided if her presenting complaint was L knee pain or L ankle pain despite having had a L knee aspiration revealing hemarthosis and an ROBERT wrap in place. Additionally, she could not state whether the pain started Wednesday or and when asked if she'd injured it stated she thinks she "banged it", but cannot give details and her interjects that they were not aware of any injury. She denies F/C, sweats, or other issues. PMedHx L occipital CVA w/ subsequent seizures chronic AFIB on rivaroxaban COPD CHF HTN HLD Ambulatory Orders Acetaminophen TAB* [Tylenol TAB*] 650 mg PO Q6H PRN #0 tab 07/24/16 Atorvastatin* [Lipitor 20 MG*] 20 mg PO 1700 #30 tab 07/24/16 Aspirin EC TAB* [Ecotrin EC Low Dose 81 MG*] 81 mg PO QAM 02/05/17 Rivaroxaban TAB(*) [Xarelto 15 mg(*)] 15 mg PO QAM 02/05/17 lamoTRIgine TAB(*) [Lamictal TAB(*)] 100 mg PO BID 02/05/17 Digoxin TAB* [Lanoxin TAB*] 0.125 mg PO BID 11/14/17 levETIRAcetam TAB* [Keppra TAB*] 750 mg PO BID tab 11/16/17 Carvedilol TAB* [Coreg TAB*] 3.125 mg PO BID 03/10/18 Clobetasol 0.05% OINT* 1 applic TOPICAL BID 03/10/18 Mupirocin 2% OINT* [Bactroban 2 % Oint*] 1 applic TOPICAL BID 03/10/18 Allergies No Known Allergies Allergy (Verified 02/12/17 08:03) PSurgHx L carpal tunnel release exploratory laparotomy in the 1970s OU cataract extractions tonsillectomy SocHx: quit smoking >30years ago with ~15PYHX, admits to 3-4 glasses of wine daily, denies recreational drugs; lives with her ; 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; 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 FamHx: Mother: passed in her 80s of uncertain causes; Father: passed in his 60s of uncertain cause ?CAD ROS: as above, otherwise reviewed and all were negative vitals: Vital Signs Temp 36.8 C 03/11/18 03:40 Pulse 74 03/11/18 03:40 Resp 16 03/11/18 03:40 BP 138/70 03/11/18 03:40 Pulse Ox 95 03/11/18 03:40 Intake & Output 03/10/18 03/10/18 03/11/18 11:59 23:59 11:59 Weight 54.431 kg 54.431 kg Constitutional: NAD, normally developed, well-nourished elderly white female HEENM: atraumatic; sclera/conjunctiva: anicteric/clear; hearing: mildly decreased; oropharynx: clear, mucosa moist Neck: soft tissue: non-tender; thyroid: normal Pulmonary: clear to auscultation bilaterally, good aeration, no accessory muscle use CV: RR/RR, normal S1S2, no carotid bruit, no jugular venous distention, 2+ B DP/ PT, no edema Abdominal: soft, non-distended, non-tender, no rebound/guarding/rigidity, normoactive bowel sounds, no hepatosplenomegaly or masses, no costovertebral angle tenderness Musculoskeletal: general: grossly intact, ROBERT to L knee Integumental: normal appearance and texture of exposed skin Psychiatric orientation: AA&O to PP, loosely to situation & time affect: energetic mood: cooperative eye contact: good content: unreliable memory: impaired responses: timely insight: poor Testing: Lab Results 03/10/18 03/10/18 03/10/18 Range/Units 15:15 15:15 19:51 WBC 11.4 H (3.5-10.8) 10^3/ul RBC 4.32 (4.0-5.4) 10^6/ul Hgb 13.1 (12.0-16.0) g/dl Hct 40 (35-47) % MCV 92 (80-97) fL MCH 30 (27-31) pg MCHC 33 (31-36) g/dl RDW 15 (10.5-15) % Plt Count 210 (150-450) 10^3/ul MPV 8.4 (7.4-10.4) um3 ESR 13 (0-40) mm/Hr Sodium 140 (139-145) mmol/L Potassium 4.3 (3.5-5.0) mmol/L Chloride 103 (101-111) mmol/L Carbon Dioxide 29 (22-32) mmol/L Anion Gap 8 (2-11) mmol/L BUN 15 (6-24) mg/dL Creatinine 0.62 (0.51-0.95) mg/dL Est GFR ( Amer) 120.0 (>60) Est GFR (Non-Af Amer) 93.3 (>60) BUN/Creatinine Ratio 24.2 H (8-20) Glucose 124 H (70-100) mg/dL Uric Acid 5.3 (2.3-6.6) mg/dL Calcium 9.1 (8.6-10.3) mg/dL Total Bilirubin 1.10 H (0.2-1.0) mg/dL AST 15 (13-39) U/L ALT 14 (7-52) U/L Alkaline Phosphatase 79 (34-104) U/L C-Reactive Protein 15.37 H (< 5.00) mg/L Total Protein 7.0 (6.4-8.9) g/dL Albumin 4.1 (3.2-5.2) g/dL Globulin 2.9 (2-4) g/dL Albumin/Globulin Ratio 1.4 (1-3) Fluid Source Synovial fluid Fluid Volume 30 mL Fluid Color Red Fluid Appearance Bloody Fluid WBC 90023 (0 - 107866) /mcL Fluid RBC 1805866 /mcL Fluid Tot Cell Count 100 Fluid Neutrophils 87 % Fluid Lymphocytes 8 % Fluid Monocytes 5 % Fluid Cell Count Rvw By Pending Fluid Crystals (None Seen) 03/10/18 Range/Units 22:07 WBC (3.5-10.8) 10^3/ul RBC (4.0-5.4) 10^6/ul Hgb (12.0-16.0) g/dl Hct (35-47) % MCV (80-97) fL MCH (27-31) pg MCHC (31-36) g/dl RDW (10.5-15) % Plt Count (150-450) 10^3/ul MPV (7.4-10.4) um3 ESR (0-40) mm/Hr Sodium (139-145) mmol/L Potassium (3.5-5.0) mmol/L Chloride (101-111) mmol/L Carbon Dioxide (22-32) mmol/L Anion Gap (2-11) mmol/L BUN (6-24) mg/dL Creatinine (0.51-0.95) mg/dL Est GFR ( Amer) (>60) Est GFR (Non-Af Amer) (>60) BUN/Creatinine Ratio (8-20) Glucose (70-100) mg/dL Uric Acid (2.3-6.6) mg/dL Calcium (8.6-10.3) mg/dL Total Bilirubin (0.2-1.0) mg/dL AST (13-39) U/L ALT (7-52) U/L Alkaline Phosphatase (34-104) U/L C-Reactive Protein (< 5.00) mg/L Total Protein (6.4-8.9) g/dL Albumin (3.2-5.2) g/dL Globulin (2-4) g/dL Albumin/Globulin Ratio (1-3) Fluid Source Fluid Volume mL Fluid Color Fluid Appearance Fluid WBC (0 - 164958) /mcL Fluid RBC /mcL Fluid Tot Cell Count Fluid Neutrophils % Fluid Lymphocytes % Fluid Monocytes % Fluid Cell Count Rvw By Fluid Crystals None seen (None Seen) XRY L knee, personally reviewed: IMPRESSION: 1. LARGE JOINT EFFUSION, NO FRACTURE IS SEEN. 2. POSSIBLE LUCENT LESION IN THE DISTAL FEMUR. RECOMMEND AN MRI OF THE KNEE FOR FURTHER EVALUATION. Impression: 77F HX L occipital CVA w/ subsequent seizures, chronic AFIB on rivaroxaban, COPD, & CHF presents with spontaneous L knee hemarthrosis DIAGNOSIS & PLAN Primary spontaneous L knee hemarthrosis : pain control : PT evaluation : hold rivaroxaban for now : supportive care suspect early to moderate dementia : consider donepezil Secondary L occipital CVA w/ subsequent seizures : continue aspirin, lamotrigine, & levetiracetam chronic AFIB on rivaroxaban : continue carvedilol & digoxin : hold rivaroxaban as above COPD : albuterol neb PRN HX CHF : no acute issues HLD : continue atorvastatin Admission Rational: observation for intractable L knee pain DVTp: SCDs Code Status: full HCP:
[2018-03-11] MEDS ORDERED: Albuterol 2.5 MG/3 ML NEB.SOL* (0.083%) INH PRN (04:22)
[2018-03-11] MEDS ORDERED: CMCS: Melatonin (NF) 3 MG TAB PO PRN (04:22)
[2018-03-11] MEDS ORDERED: Acetaminophen TAB* 325 MG PO PRN (04:22)
[2018-03-11] MEDS ORDERED: oxyCODONE TAB* 5 MG TAB PO PRN (04:22)
[2018-03-11] MEDS ORDERED: Ondansetron INJ* 2 MG/ML VIAL IV PRN (04:22)
[2018-03-11] MEDS ORDERED: NS 0.9% 1000 ML* 1,000 ML IV SCH (04:30)
[2018-03-11 05:34] LABS: Hematocrit 36 % (35-47); Hemoglobin 12.5 g/dl (12.0-16.0)
[2018-03-11] MEDS ORDERED: Omeprazole CAP* 20 MG PO SCH (06:00)
--- NOTE | 2018-03-11 07:57 | PN ---
Subjective - Subjective Reason for Note: Progress Note History: History from patient, (phone), Dr. Hugo. Wednesday afternoon ( today Wednesday) mentioned x 3 sharp pain in right knee. She was later unable to move. She slept on couch downstairs. - unable to mobilize. Couldn't get her to the car. Called ambulance. She has a hemarthrosis of the left knee on aspiration. According to Kevin she was able to walk with a walker yesterday evening. 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 History of CVA (cerebrovascular accident) (Chronic) Z86.73 History of hypertension (Chronic) Z86.79 Multiple cerebral infarctions (Chronic) I63.9 Osteoporosis (Chronic) M81.0 Current Medications: Current Medications Acetaminophen (Tylenol Tab*) 650 mg PO Q6H PRN PRN Reason: FEVER/PAIN Albuterol (Ventolin 2.5 Mg/3 Ml Neb.Letty*) 2.5 mg INH Q2H PRN PRN Reason: SOB/WHEEZING Aspirin (Aspirin Ec Tab*) 81 mg PO QAM [facility] Atorvastatin Calcium (Lipitor*) 20 mg PO 1700 [facility] Carvedilol (Coreg Tab*) 3.125 mg PO BID [facility] Digoxin (Lanoxin Tab*) 0.125 mg PO BID [facility] Docusate Sodium (Colace Cap*) 200 mg PO BID [facility] Sodium Chloride (Ns 0.9% 1000 Ml*) 1,000 mls @ 50 mls/hr IV PER RATE [facility] Last Admin: 03/11/18 05:57 Dose: 50 mls/hr Lamotrigine (Lamictal Tab(*)) 100 mg PO BID [facility] Levetiracetam (Keppra Tab*) 750 mg PO BID [facility] Melatonin (Melatonin (Nf)) 3 mg PO BEDTIME PRN; Protocol PRN Reason: Sleep Omeprazole (Prilosec Cap*) 20 mg PO DAILY@0600 [facility] Last Admin: 03/11/18 05:34 Dose: 20 mg Ondansetron HCl (Zofran Inj*) 4 mg IV Q6H PRN PRN Reason: NAUSEA Oxycodone HCl (Roxycodone Tab*) 2.5 mg PO Q4H PRN PRN Reason: PAIN - Review of Systems Pulmonary: Negative: Cough, Sputum, Respiratory Distress Cardiology: Negative: Chest Pain, Shortness of Breath, Palpitations, Swelling of Ankles Gastroenterology: Negative: Abdominal Pain, Nausea, Vomiting, Change in Bowel Habits Home Medications: Home Medications Medication Instructions Recorded Confirmed Type Acetaminophen TAB* [Tylenol TAB*] 650 mg PO Q6H PRN #0 tab 07/24/16 03/10/18 Rx Atorvastatin* [Lipitor 20 MG*] 20 mg PO 1700 #30 tab 07/24/16 03/10/18 Rx Aspirin EC TAB* [Ecotrin EC Low 81 mg PO QAM 02/05/17 03/10/18 History Dose 81 MG*] Rivaroxaban TAB(*) [Xarelto 15 15 mg PO QAM 02/05/17 03/10/18 History mg(*)] lamoTRIgine TAB(*) [Lamictal 100 mg PO BID 02/05/17 03/10/18 History TAB(*)] Digoxin TAB* [Lanoxin TAB*] 0.125 mg PO BID 11/14/17 03/10/18 History levETIRAcetam TAB* [Keppra TAB*] 750 mg PO BID tab 11/16/17 03/10/18 Rx Carvedilol TAB* [Coreg TAB*] 3.125 mg PO BID 03/10/18 03/10/18 History Clobetasol 0.05% OINT* 1 applic TOPICAL BID 03/10/18 03/10/18 History Mupirocin 2% OINT* [Bactroban 2 % 1 applic TOPICAL BID 03/10/18 03/10/18 History Oint*] Allergies: Allergies Allergy/AdvReac Type Severity Reaction Status Date / Time No Known Allergies Allergy Verified 02/12/17 08:03 Objective - Vital Signs Vital Signs: Vital Signs 03/11/18 03/11/18 03/11/18 01:28 01:36 03:40 Temperature 99.3 F 98 F 98.2 F Pulse Rate 84 68 74 Respiratory 16 20 16 Rate Blood Pressure 163/75 148/71 138/70 (mmHg) O2 Sat by Pulse 96 93 95 Oximetry 03/11/18 06:54 Temperature Pulse Rate Respiratory 16 Rate Blood Pressure (mmHg) O2 Sat by Pulse Oximetry - Intake and Output Intake and Output: Intake & Output 03/08/18 03/09/18 03/10/18 03/11/18 11:59 11:59 11:59 11:59 Intake Total 0 Output Total 0 Balance 0 Weight 120 lb Intake: Oral 0 Output: Urine 0 Other: # Bowel Movements 0 # Voids 0 ADLs: Meal Record Start: 03/11/18 01: 36 Freq: DAILY@0900,1400,1800 Status: Active Protocol: Created 03/11/18 01:36 System (Rec: 03/11/18 01:36 System [id number]) Intake and Output Start: 03/10/18 14: 38 Freq: Status: Active Protocol: Created 03/10/18 14:38 System (Rec: 03/10/18 14:38 System [id number]) Intake and Output Start: 03/11/18 01: 36 Freq: DAILY@0600,1400,2200 Status: Active Protocol: Created 03/11/18 01:36 System (Rec: 03/11/18 01:36 System [id number]) Document 03/11/18 06:00 [id number] (Rec: 03/11/18 06:44 [id number]) Results - Results Lab Results: Laboratory Results - last 24 hr 03/11/18 05:08 Hgb 12.5 Hct 36 Radiology Results: Patient Name: ELHAM CHOPRA Medical Record#: [id number] Ordering Physician: Colin Auguste MD Acct.#: [id number] : 1940 Age: 77 Sex: F Location: EMERGENCY DEPARTMENT Exam Date: 03/10/181449 ADM Status: REG ER Order Information: KNEE LEFT 4+ VWS Accession Number: [id number] CPT: 12193 INDICATION: Left knee swelling. TECHNIQUE: 4 views of the left knee were obtained. FINDINGS: The bones are normal alignment. There is a large joint effusion present. No fracture is seen. There is a lucent lesion seen in the AP view which projects over the distal metaphysis of the femur measuring 3.0 x 2.2 cm in size. This is not seen on the lateral view and may be artifactual. 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 IMPRESSION: 1. LARGE JOINT EFFUSION, NO FRACTURE IS SEEN. 2. POSSIBLE LUCENT LESION IN THE DISTAL FEMUR. RECOMMEND AN MRI OF THE KNEE FOR FURTHER EVALUATION. <Electronically signed by Miguel Figueroa MD in OV> 03/10/18 1545 Dictated By: Miguel Figueroa MD Dictated Date/Time: 03/10/18 1545 Transcribed Date/Time: 03/10/18 1541 Copy to: CC:Jigar Biswas MD; Colin Auguste MD Imaging - [facility] Imaging - [facility] Imaging - [facility] [address] [address] ph [phone]) ph ([phone]) ph ([phone]) 1 of 1 Assessment - Problem List Assessment: Patient Problems Knee hemarthrosis, left (Acute) Alcohol dependence (Chronic) Alcoholism (Chronic) Anticoagulated (Chronic) Atrial fibrillation (Chronic) COPD (chronic obstructive pulmonary disease) (Chronic) 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 There was a lucent area in the distal femur described in the plain X-ray and a recommendation for an MRI of the knee. I discussed this with radiology - it is probably not related to the hemarthrosis. This is a subtle finding. Anticoagulated (Chronic) Her xarelto was stopped Alcohol dependence (Chronic) Alcoholism (Chronic) She continues to drink 3 units alcohol per day Atrial fibrillation (Chronic) Her pulse was regular with extrasystoles. I will check an EKG. 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 I will mobilize her today and if she is stable I will discharge her. I will decide upon how long we should hold her xarelto.
[2018-03-11 08:08] VITALS: BP 143/79
--- NOTE | 2018-03-11 08:43 | PN ---
Progress Note - Progress Note Date of Service: 03/11/18 Note: Discharge Summary (see previous note). She has managed to walk safely with PT with a walker. I am going to discharge her home today.
[2018-03-11] MEDS ORDERED: Aspirin EC TAB* 81 MG TAB.EC PO SCH (09:00)
[2018-03-11] MEDS ORDERED: Carvedilol TAB* 3.125 MG PO SCH (09:00)
[2018-03-11] MEDS ORDERED: Docusate CAP* 100 MG PO SCH (09:00)
[2018-03-11] MEDS ORDERED: levETIRAcetam TAB* 500 MG PO SCH (09:00)
[2018-03-11] MEDS ORDERED: lamoTRIgine TAB(*) 100 MG PO SCH (09:00)
[2018-03-11] MEDS ORDERED: Digoxin TAB* 0.125 MG PO SCH (09:00)
[2018-03-11] MEDS ORDERED: Atorvastatin* 20 MG TAB PO SCH (17:00)
== END 2018-03-11 11:44 | disposition home or self-care (01) ==
LOC: ED 14:26 → MEDTELE 03-11 00:32
PROVIDERS: ADMIT Hospitalist; ATTEND Internal Medicine
DX: M25.062 Hemarthrosis, left knee (principal); M25.562 Pain in left knee; F10.20 Alcohol dependence, uncomplicated; I25.10 Atherosclerotic heart disease of native coronary artery without angina pectoris; Z87.891 Personal history of nicotine dependence; Z79.01 Long term (current) use of anticoagulants; I48.91 Unspecified atrial fibrillation; J44.9 Chronic obstructive pulmonary disease, unspecified; I69.921 Dysphasia following unspecified cerebrovascular disease; I10 Essential (primary) hypertension; H53.47 Heteronymous bilateral field defects; H53.461 Homonymous bilateral field defects, right side; Z86.73 Personal history of transient ischemic attack (TIA), and cerebral infarction without residual deficits; Z86.79 Personal history of other diseases of the circulatory system; I63.9 Cerebral infarction, unspecified; M81.0 Age-related osteoporosis without current pathological fracture; I42.8 Other cardiomyopathies
CPT/HCPCS: 36415; 80053; 82945; 84550; 85014; 85018; 85027; 85652; 86140; 87070; 87205; 87640; 87641; 89051; 89060; 96374; 99283; A9270-GY; G0378; G8978-GP-CJ; G8979-GP-CJ; G8980-GP-CJ

== ENCOUNTER 2018-12-01 10:25 | Inpatient (IN) | payer MEDICARE, OTHER ==
--- NOTE | 2018-12-01 10:45 | ED ---
Neurological HPI - HPI Summary HPI Summary: A 78 y/o female brought in by [facility] ambulance presents to [facility] with a chief complaint of a possible stroke on 12/01/18. She denies pain but c/o weakness when walking and was found vomiting 4x at home. She denies ALEXIS, CP, fever or abd pain. Per EMS, the patient seems confused and had a glucose of 160 in the field. Per Kevin, her , the patient was last known well at 08:00 when her gave the patient coffee before taking a shower. After getting out of the shower, her noticed the patient not acting right. The patient vomited 4 times. In the ED she answered some questions incorrectly such as the month. She is on Xarelto. The patient was seen by Dr. Robledo at 10:38 for the initial exam. Beatriz linton was called at 10:46. Dr Pandey, neuro, at bedside 10: 47 for further workup. Patient taken to CT at 10:55. The patient reports a Hx of seizures, TIA, a-fib, HTN and cerebral infarction. She notes that her speech does not seem normal to her. Vital signs in room: HR 67 bpm, BP 120/91. - History of Current Complaint Chief Complaint: EDAltMentalStatus Stated Complaint: VOMITING Hx Obtained From: Patient, Family/Bureau Director - , EMS Onset/Duration: Sudden Onset, Started hours ago, Still Present Current Severity: Mild Seizure Severity: Mild Pain Intensity: 0 Pain Scale Used: 0-10 Numeric Character: Weak Aggravating: Nothing Alleviating: Nothing Associated Signs and Symptoms: Positive: Weakness - Additional Pertinent History Primary Care Physician: [id number] - Allergy/Home Medications Allergies/Adverse Reactions: Allergies Allergy/AdvReac Type Severity Reaction Status Date / Time No Known Allergies Allergy Verified 02/12/17 08:03 Home Medications: Home Medications Aspirin 81 mg CHEW TAB* [Aspirin Low Dose TAB*] 81 mg PO DAILY 12/01/18 [ History Confirmed 12/01/18] Atorvastatin* [Lipitor 20 MG*] 20 mg PO BEDTIME 12/01/18 [History Confirmed 02/14] Mupirocin 2% CREAM* [Bactroban 2% CREAM*] 1 applic TOPICAL DAILY PRN 12/01/18 [ History Confirmed 12/01/18] Rivaroxaban TAB(*) [Xarelto 15 mg(*)] 15 mg PO DAILY 12/01/18 [History Confirmed 12/01/18] lamoTRIgine TAB(*) [LaMICtal TAB(*)] 100 mg PO BID 12/01/18 [History Confirmed 12/01/18] PMH/Surg Hx/FS Hx/Imm Hx Endocrine/Hematology History: Denies: Hx Diabetes, Hx Anemia Cardiovascular History: Reports: Hx Atrial Fibrillation, Hx Coronary Artery Disease, Hx Hypertension, Other Cardiovascular Problems/Disorders - NEW ONSET A- FIB Denies: Hx Angina, Hx Congestive Heart Failure, Hx Hypercholesterolemia, Hx Myocardial Infarction, Hx Pacemaker/ICD, Hx Valvular Heart Disease Respiratory History: Reports: Hx Chronic Obstructive Pulmonary Disease (COPD), Other Respiratory Problems/Disorders - PRIOR SMOKER. QUIT 1994 Denies: Hx Asthma, Hx Chronic Bronchitis, Hx Pneumonia, Hx Sleep Apnea GI History: Denies: Hx Jaundice History: Reports: Other Problems/Disorders - HX HEMATURIA Denies: Hx Renal Disease Musculoskeletal History: Reports: Hx Orthopedic Injury - LEFT HUMEROUS FRACTURE , Hx Osteoporosis, Other Musculoskeletal History - OSTEOPOROSIS Denies: Hx Arthritis Sensory History: Reports: Other Sensory Impairments Denies: Hx Cataracts - removed bilateraly, Hx Contacts or Glasses, Hx Eye Injury, Hx Hearing Aid Opthamlomology History: Reports: Other Sensory Impairments Denies: Hx Cataracts - removed bilateraly, Hx Contacts or Glasses, Hx Eye Injury Neurological History: Reports: Hx Seizures, Hx Transient Ischemic Attacks (TIA) , Other Neuro Impairments/Disorders - Cerebral infarction Denies: Hx Developmental Delay, Hx Headaches, Hx Migraine, Hx Nerve Disease, Hx Spinal Cord Injury Comment Only: Hx Dementia - hx of STM deficits Psychiatric History: Denies: Hx Anxiety, Hx Depression, Hx Panic Disorder - Surgical History Surgery Procedure, Year, and Place: GROWTH ON UTERUS REMOVED/ FIBROID 1972 Hx Anesthesia Reactions: No - Immunization History Date of Tetanus Vaccine: Up to date Date of Influenza Vaccine: fall 2014 Infectious Disease History: No Infectious Disease History: Denies: Traveled Outside the [place] in Last 30 Days - Family History Known Family History: Positive: Other - CVA - Social History Alcohol Use: Daily Alcohol Amount: x2/day Hx Substance Use: No Substance Use Type: Reports: None Hx Tobacco Use: Yes Smoking Status (MU): Former Smoker Type: Cigarettes, Pipe Amount Used/How Often: 1/2 PPD - QUIT IN 1995 Length of Time of Smoking/Using Tobacco: 55 years Have You Smoked in the Last Year: No Review of Systems Negative: Fever Negative: Chest Pain Negative: Shortness Of Breath Positive: Vomiting, Nausea. Negative: Abdominal Pain Neurological: Other - Positive: speech does not seem normal to her, unable to answer the month correctly, confused Positive: Weakness. Negative: Headache All Other Systems Reviewed And Are Negative: Yes Physical Exam - Summary Physical Exam Summary: Appearance: Well-appearing, no pain distress, well-nourished Skin: Warm, color reflects adequate perfusion, dry Head: Normal Head/Face inspection, atraumatic Eyes: Conjunctiva clear ENT: Normal inspection Neck: Supple, no nodes, no JVD Respiratory: Lungs clear, normal breath sounds, no respiratory distress Cardio: RRR, No murmur, pulses normal, brisk capillary refill Abdomen: Soft, nontender Bowel sounds: Present Musculoskeletal: Strength Intact/ROM intact, no calf tenderness, no edema. Psychological: Normal Neuro: Alert, muscle tone normal, no focal deficit, see NIH, NIH 3 GCS 15 Triage Information Reviewed: Yes Vital Signs On Initial Exam: Initial Vitals Temp Pulse Resp BP Pulse Ox 97.2 F 62 22 159/104 98 12/01/18 10:32 12/01/18 10:32 12/01/18 10:32 12/01/18 10:32 12/01/18 10:32 Vital Signs Reviewed: Yes - Tete Coma Scale Best Eye Response: 4 - Spontaneous Best Motor Response: 6 - Obeys Commands Best Verbal Response: 5 - Oriented Coma Scale Total: 15 Diagnostics - Vital Signs Vital Signs Temp Pulse Resp BP Pulse Ox 12/01/18 10:32 97.2 F 62 22 159/104 98 - Laboratory Result Diagrams: 12/01/18 10:51 12/01/18 10:51 Lab Statement: Any lab studies that have been ordered have been reviewed, and results considered in the medical decision making process. - Radiology CXR Radiology Interpretation Completed By: Radiologist Summary of Radiographic Findings: CARDIOMEGALY WITH NO DEFINITE PNEUMONIA.. ED provider has reviewed this imaging report. - CT Head CTA CT Interpretation Completed By: Radiologist Summary of CT Findings: 1. 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 2. ATHEROSCLEROSIS. 3. THERE IS MILD NARROWING OF THE DISTAL LEFT VERTEBRAL ARTERY. 4. NO INTERNAL CAROTID ARTERY STENOSIS BY NASCET CRITERIA. 5. EVIDENCE OF REMOTE LEFT PERSONAL CARE SERVICE PROVIDER TERRITORY INFARCT WITH CHRONIC SMALL VESSEL ISCHEMIC. CHANGES. ED provider has reviewed this imaging report. Brain CT CT Interpretation Completed By: Radiologist Summary of CT Findings: Atrophy. Old infarct left occipital and parietal lobe. Probable calcified. meningioma in the left middle cranial fossa. No intracranial hemorrhage is noted. ED provider has reviewed this imaging report. - EKG 11:21 Cardiac Rate: Other Rate - Atrial fibrillation at 68 bpm EKG Rhythm: Atrial Fibrillation ST Segment: Non-Specific Ectopy: None Summary of EKG Findings: Atrial fibrillation at 68 bpm, prolonged IVCT (115) nonspecific, nl QTc, no acute changes compared with EKG done 11/24/17. T waves in V1-V6 have now normalized. NIH Scale - NIH Scale Level of Consciousness: Alert/Keenly Responsive Ask Patient the Month and His/Her Age: [age] Correct/Not Aphasic Ask Pt to Open/Close Eyes and Clinic Business Manager/Release Non-Paretic Hand: Both Correctly Best Gaze (Only Horizontal Eye Movement): Normal Visual Field Testing: No Visual Loss Facial Paresis-Pt to Smile & Close Eyes or Grimace Symmetry: Minor Paralysis Motor Function - Right Arm: No Drift-Holds 10 Seconds Motor Function - Left Arm: No Drift-Holds 10 Seconds Motor Function - Right Leg: No Drift-Holds 10 Seconds Motor Function - Left Leg: No Drift-Holds 10 Seconds Limb Ataxia-Must be out of Proportion to Weakness Present: Absent Sensory (Use Pinprick to Test Arms/Legs/Trunk/Face): Normal Best Language (Describe Picture, Name Items): Some Loss Dysarthria (Read Several Words): Normal Extinction and Inattention: No Abnormality Total Score: 3 Re-Evaluation - Re-Evaluation First Eval Re-Evaluation Time: 13:03 Change: Unchanged Comment: Ordering Keppra 750 IV. Course/Dx - Course Course Of Treatment: A 78 y/o female brought in by [facility] ambulance presents to [facility] with a chief complaint of a possible stroke on 12/01/18. She was also vomiting and her and her noticed that she was not talking correctly. During the initial exam she was unable to answer the month correctly. Her Lactate was 2.4. Her head CTA showed right PERSONAL CARE SERVICE PROVIDER occlusion and her Brain CT showed a probable calcified meningioma. Her EKG at 11:21 showed a-fib at 68 bpm. After discussing the case with Dr. Pandey we are ordering Keppra 750 IV. He also recommends Lamictal [address] Pickard accepted the patient for admission. The patient is agreeable with this plan. - Diagnoses Provider Diagnoses: Meningioma, Vomiting, Lactic acidosis, Neurological deficit present, Seizure disorder - Physician Notifications Discussed Care Of Patient With: Perlita Farley Time Discussed With Above Provider: 11:20 Instructed by Provider To: Other - Small infarct and small left temporal hemangioma unchanged Discharge - Sign-Out/Discharge Documenting (check all that apply): Patient Departure - admit - Discharge Plan Condition: Fair Disposition: ADMITTED TO [facility] - Attestation Statements Document Initiated by Scribe: Yes Documenting Scribe: Miguel Hickman Provider For Whom Scribe is Documenting (Include Credential): Dr. Lizette Robledo MD Scribe Attestation: IMiguel, scribed for Dr. Lizette Robledo MD on 12/01/18 at 1552. Status of Scribe Document: Ready Consult Consult: At 11:[address] Paige, radiology, who claims her CTA shows a right PERSONAL CARE SERVICE PROVIDER occlusion, is unsure if this is chronic, and has atherosclerotic changes. At 11:40 Dr. Pandey, neuro, recommended the patient for admission. At 11:[address] Pickard, hospitalist, who accepted the patient for admission At 13:00 Dr. Pandey, neuro, recommends Keppra level test. He also recommends Lamictal 25 mg BID.
[2018-12-01] MEDS ORDERED: NS 0.9% 1000 ML* 1,000 ML IV ONE (10:50)
[2018-12-01 11:00] LABS: ABS Basophils 0.1 10^3/ul (0-0.2); ABS Eosinophils 0.1 10^3/ul (0-0.6); ABS Lymphocytes 1.4 10^3/ul (1.0-4.8); ABS Monocytes 0.7 10^3/ul (0-0.8); ABS Nucleated RBC 0 10^3/ul; Eosinophil % 0.9 %; Hematocrit 44 % (35-47); Hemoglobin 14.2 g/dl (12.0-16.0); Lymphocyte % 9.8 %; Mean Corpuscular HGB Conc 33 g/dl (31-36); Mean Corpuscular Hemoglobin 30 pg (27-31); Mean Corpuscular Volume 93 fL (80-97); Mean Platelet Volume 8.3 fL (7.4-10.4); Nucleated Red Blood Cells % 0; Platelet Count 238 10^3/ul (150-450); Red Blood Count 4.68 10^6/ul (4.00-5.40); Red Cell Distribution Width 14 % (10.5-15); White Blood Count 14.3 10^3/ul (3.5-10.8)
[2018-12-01] MEDS ORDERED: Iodixanol* (CONTRAST) 320 MG/ML 100 ML SDV IV ONE (11:00)
[2018-12-01 11:09] LABS: Activated Partial Thrombo Time 29.3 seconds (26.0-36.3); INR 1.09 (0.77-1.02)
[2018-12-01 11:18] LABS: ALT 14 U/L (7-52); AST 16 U/L (13-39); Albumin 4.2 g/dL (3.2-5.2); Albumin/Globulin Ratio 1.3 (1-3); Alkaline Phosphatase 95 U/L (34-104); Anion Gap 8 mmol/L (2-11); BUN/Creatinine Ratio 28.6 (8-20); Blood Urea Nitrogen 20 mg/dL (6-24); CO2 Carbon Dioxide 27 mmol/L (22-32); Calcium 9.2 mg/dL (8.6-10.3); Chloride 107 mmol/L (101-111); Cholesterol 189 mg/dL; EGFR Non-African American 80.9 (>60); Globulin 3.2 g/dL (2-4); Glucose 161 mg/dL (70-100); HDL Cholesterol 69.6 mg/dL; LDL Cholesterol 97 mg/dL; Potassium 4.5 mmol/L (3.5-5.0); Sodium 142 mmol/L (135-145); Total Protein 7.4 g/dL (6.4-8.9); Triglycerides 112 mg/dL
--- OUTSIDE RECORDS SUMMARY | 2018-12-01 11:34 | XMS REPORT | Continuity of Care Document ---
:1940 External Reference #:[id number] Author Name Kerline Nunez Care Team Providers Name Role Phone Jigar Biswas MD Primary Care Physician Unavailable Payers Type Date Identification Numbers Payment Provider Subscriber Policy Number: [id number] Medicare Abeba Patel PayID: [id number] [address] [place] [address] Policy Number: [id number] [employer] Abeba Patel Group Number: [id number] [address] PayID: [id number] [place] [address] Advance Directives Description No Information Available Problems Date Description Provider Status Onset: 01/18/2015 Localization-related epilepsy Edgar Pandey M.D. Active Onset: 02/08/2017 Carpal tunnel syndrome of left wrist Vick Goldberg MD Active Onset: 02/08/2017 Other displaced fracture of upper end Vick Goldberg MD Active of left humerus, subsequent encounter for fracture with routine healing Onset: 01/21/2018 Chronic atrial fibrillation Reema Santana M.D. Active Onset: 01/21/2018 Mitral valve disorder Reema Santana M.D. Active Onset: 01/21/2018 Tricuspid valve disorder, Reema Santana M.D. Active non-rheumatic Onset: 01/21/2018 Cardiomyopathy Reema Santana M.D. Active Onset: 03/28/2018 Aortic valve disorder Reema Santana M.D. Active Onset: 03/28/2018 Chronic diastolic heart failure Reema Santana M.D. Active Family History Description No Information Available Social History Type Date Description Comments Sex Unknown Marital Status Lives With Occupation Retired Hand Dominance Right-handed ETOH Use Occasionally consumes 2 to 3 glasses of alcohol wine a day Tobacco Use Start: Unknown Patient is a former Quit Cigarettes 1971, End: Unknown smoker quit pipe in 1996 Recreational Drug Use Denies Drug Use Smoking Status Reviewed: 11/11/18 Patient is a former Quit Cigarettes 1971, smoker quit pipe in 1996 Exercise Type/Frequency Does not exercise Allergies, Adverse Reactions, Alerts Description No Known Drug Allergies Medications Medication Date Status Form Strength Qnty SIG Indications Ordering Provider Coreg 03/02/ Active Tablets 3.125mg 90tabs 1 by mouth I42.8 Martha Sonia 2018 twice Foster, daily N.P. Levetiracetam 12/16/ Active Tablets 750mg 60tabs 1 by mouth Edgar Scott 2018 twice a Katherin, day M.D. Xarelto / Active Tablets 15mg 1 by mouth Unknown 0000 every day Digoxin / Active Tablets 125mcg 2 by mouth Unknown 0000 every day Lamictal / Active Tablets 100mg 60tabs 1 tab by Edgar Scott 0000 mouth Katherin, twice a M.D. day Aspirin / Active Chewtabs 81mg 1 by mouth Unknown 0000 every day Lipitor / Active Tablets 20mg one tab by Unknown 0000 mouth every PM Percocet 11/18/ Hx Tablets 5-325mg 30tabs 1 tab by Dylan Cruz 2015 - mouth Yusuf, 11/21/ every 4-6 2017 hours Percocet 11/11/ Hx Tablets 5-325mg 30tabs 1 tab by Dylan Cruz 2015 - mouth Yusuf, 11/21/ every 4-6 2017 hours Digox 01/17/ Hx Tablets 125mcg 30tabs 2 by mouth Edgar Scott 2014 - every day Katherin, 12/30/ M.D. 2014 Lamotrigine / Hx Tablets 100mg 1 [...] Levetiracetam / Hx Tablets 500mg 60tabs 1 /2 by Chhaya 0000 - mouth MD Sharron 12/16/ twice a 2018 day Cartia XT / Hx Caps ER 180mg Unknown 0000 - 24HR 2017 Metoprolol / Hx Tablets ER 25mg take 1 Unknown Succinate ER 0000 - 24HR tablet by 03/02/ mouth 2018 three times a day Lisinopril / Hx Tablets 5mg take 1 Unknown 0000 - tablet by 01/21/ mouth once 2018 daily Clobetasol / Hx Cream 0.05% applied to Unknown Propionate 0000 - affected 10/03/ area 1-2 2018 times daily as Needed Mupirocin / Hx Ointment 2% apply Unknown 0000 - affected 10/03/ areas once 2018 daily as Needed Immunizations Description No Information Available Vital Signs Date Vital Result Comment 11/11/2018 1:34pm Height 61 inches 5'1" Weight 121.00 lb Heart Rate 81 /min BP Systolic Sitting 130 mmHg LA reg cuff BP Diastolic Sitting 90 mmHg LA reg cuff BP Systolic Standing 125 mmHg LA reg cuff BP Diastolic Standing 87 mmHg LA reg cuff Respiratory Rate 18 /min O2 % BldC Oximetry 98 % BMI (Body Mass Index) 22.9 kg/m2 Ejection Fraction 60-65% 09/13/2018 echo 10/04/2018 10:59am Height 61 inches 5'1" Weight 121.00 lb Heart Rate 84 /min BP Systolic 120 mmHg BP Diastolic 82 mmHg Respiratory Rate 20 /min BMI (Body Mass Index) 22.9 kg/m2 04/13/2018 10:34am Height 61 inches 5'1" Weight 118.00 lb Heart Rate 60 /min BP Systolic Sitting 112 mmHg BP Diastolic Sitting 68 mmHg Respiratory Rate 16 /min BMI (Body Mass Index) 22.3 kg/m2 03/28/2018 12:31pm Height 61 inches 5'1" Weight 123.00 lb with shoes Heart Rate 80 /min BP Systolic Sitting 140 mmHg Lue reg cuff BP Diastolic Sitting 78 mmHg Lue reg cuff BP Systolic Standing 138 mmHg Lue reg cuff BP Diastolic Standing 74 mmHg Lue reg cuff Respiratory Rate 16 /min BMI (Body Mass Index) 23.2 kg/m2 Ejection Fraction 55-60% date 02/25/18 ECHO 03/02/2018 11:59am Height 61 inches 5'1" Weight 121.00 lb Heart Rate 80 /min BP Systolic Sitting 132 mmHg lue reg cuff BP Diastolic Sitting 65 mmHg lue reg cuff Respiratory Rate 16 /min BMI (Body Mass Index) 22.9 kg/m2 Ejection Fraction 55-60% 02/25/2018 01/21/2018 11:30am Height 61 inches 5'1" Weight 121.50 lb with shoes Heart Rate 92 /min BP Systolic Sitting 138 mmHg Ra, reg BP Diastolic Sitting 76 mmHg Ra, reg BP Systolic Standing 140 mmHg Ra, reg BP Diastolic Standing 76 mmHg Ra, reg BMI (Body Mass Index) 23.0 kg/m2 Ejection Fraction 40%-45% 11/23/17 echo 12/21/2017 1:54pm Height 61 inches 5'1" Weight 122.00 lb Heart Rate 85 /min BP Systolic Sitting 130 mmHg BP Diastolic Sitting 82 mmHg Respiratory Rate 15 /min BMI (Body Mass Index) 23.0 kg/m2 11/30/2017 1:37pm Height 61 inches 5'1" Weight 125.00 lb Heart Rate 74 /min BP Systolic 132 mmHg BP Diastolic 82 mmHg Respiratory Rate 14 /min BMI (Body Mass Index) 23.6 kg/m2 08/05/2017 9:20am Height 61 inches 5'1" Weight 126.00 lb Heart Rate 68 /min Respiratory Rate 16 /min Body Temperature 96.9 F Pain Level 0 BMI (Body Mass Index) 23.8 kg/m2 06/22/2017 10:22am Height 61 inches 5'1" Weight 124.50 lb Heart Rate 85 /min BP Systolic Sitting 136 mmHg BP Diastolic Sitting 82 mmHg Respiratory Rate 16 /min BMI (Body Mass Index) 23.5 kg/m2 05/03/2017 11:46am Height 61 inches 5'1" Weight 121.00 lb Respiratory Rate 16 /min Body Temperature 98.2 F Pain Level 1 BMI (Body Mass Index) 22.9 kg/m2 03/22/2017 10:59am Height 61 inches 5'1" Weight 121.00 lb Heart Rate 84 /min BP Systolic 120 mmHg BP Diastolic 77 mmHg Respiratory Rate 16 /min Body Temperature 98.1 F Pain Level 0 BMI (Body Mass Index) 22.9 kg/m2 02/22/2017 2:34pm Height 61 inches 5'1" Weight 121.00 lb Heart Rate 84 /min BP Systolic 127 mmHg BP Diastolic 83 mmHg Respiratory Rate 15 /min Body Temperature 98.3 F Pain Level 0 BMI (Body Mass Index) 22.9 kg/m2 02/08/2017 1:30pm Height 61 inches 5'1" Weight 121.00 lb Heart Rate 80 /min BP Systolic Sitting 132 mmHg BP Diastolic Sitting 82 mmHg Respiratory Rate 16 /min Body Temperature 98.7 F Pain Level 1 BMI (Body Mass Index) 22.9 kg/m2 01/11/2017 11:59am Height 62 inches 5'2" Weight 120.00 lb Heart Rate 86 /min BP Systolic 126 mmHg BP Diastolic 84 mmHg Respiratory Rate 15 /min Pain Level 0 BMI (Body Mass Index) 21.9 kg/m2 12/21/2016 11:33am Height 62 inches 5'2" Weight 120.00 lb Pain Level 0 BMI (Body Mass Index) 21.9 kg/m2 12/02/2016 2:51pm Height 62 inches 5'2" Weight 120.00 lb Respiratory Rate 20 /min Pain Level 2 BMI (Body Mass Index) 21.9 kg/m2 11/18/2016 3:50pm Height 62 inches 5'2" Weight 120.00 lb Respiratory Rate 18 /min Pain Level 5 BMI (Body Mass Index) 21.9 kg/m2 11/16/2016 1:47pm Height 62 inches 5'2" Weight 120.00 lb Heart Rate 84 /min BP Systolic Sitting 136 mmHg BP Diastolic Sitting 78 mmHg BMI (Body Mass Index) 21.9 kg/m2 11/11/2016 4:32pm Height 62 inches 5'2" Weight 120.00 lb Heart Rate 86 /min BP Systolic 152 mmHg BP Diastolic 90 mmHg Respiratory Rate 22 /min Pain Level 7 BMI (Body Mass Index) 21.9 kg/m2 08/04/2016 4:05pm Height 62 inches 5'2" Weight 122.00 lb Heart Rate 68 /min BP Systolic Sitting 138 mmHg BP Diastolic Sitting 86 mmHg Respiratory Rate 14 /min BMI (Body Mass Index) 22.3 kg/m2 05/12/2016 11:54am Height 62 inches 5'2" Weight 119.00 lb Heart Rate 78 /min Irregular BP Systolic Sitting 130 mmHg BP Diastolic Sitting 80 mmHg Respiratory Rate 20 /min BMI (Body Mass Index) 21.8 kg/m2 04/24/2015 9:51am Height 62 inches 5'2" Weight 117.00 lb Heart Rate 76 /min BP Systolic Sitting 136 mmHg BP Diastolic Sitting 80 mmHg Respiratory Rate 16 /min BMI (Body Mass Index) 21.4 kg/m2 01/18/2015 11:13am Height 62 inches 5'2" Weight 120.00 lb Heart Rate 80 /min Irregular BP Systolic Standing 158 mmHg BP Diastolic Standing 72 mmHg Respiratory Rate 20 /min BMI (Body Mass Index) 21.9 kg/m2 Results Test Date Facility Test Result H/L Range Note Lipid Panel - 11/11/2018 [facility] Creatine <pending> [facility] [address] Kinase(CK) [place] [address] [phone] Comp Metabolic 07/10/2016 [facility] Sodium 137 mmol/L N 133- [address] [place] [address] [phone] Potassium 3.8 mmol/L N 3.5-5.0 Chloride 103 mmol/L N 101-111 Co2 Carbon Dioxide 27 mmol/L N 22-32 Anion Gap 7 mmol/L N 2-11 Glucose 109 mg/dL High 70-100 Blood Urea Nitrogen 22 mg/dL N 6-24 Creatinine 0.80 mg/dL N 0.51-0.95 BUN/Creatinine Ratio 27.5 High 8-20 Calcium 9.1 mg/dL N 8.6-10.3 Total Protein 7.1 g/dL N 6.4-8.9 Albumin 4.1 g/dL N 3.2-5.2 Globulin 3.0 g/dL N 2-4 Albumin/Globulin Ratio 1.4 N 1-3 Total Bilirubin 0.40 mg/dL N 0.2-1.0 Alkaline Phosphatase 94 U/L N 34-104 Alt 15 U/L N 7-52 Ast 15 U/L N 13-39 Egfr Non- 69.7 N >60 Egfr 89.7 N >60 1 CBC Auto 07/10/2016 [facility] White Blood 12.4 10^3/uL High 3.5-10.[address] [place] [address] [phone] Red Blood Count 4.46 10^6/uL N 4.0-5.4 Hemoglobin 13.0 g/dL N 12.0-16.0 Hematocrit 41 % N 35-47 Mean Corpuscular Volume 91 fL N 80-97 Mean Corpuscular Hemoglobin 29 pg N 27-31 Mean Corpuscular HGB Conc 32 g/dL N 31-36 Red Cell Distribution Width 14 % N 10.5-15 Platelet Count 247 10^3/uL N 150-450 Mean Platelet Volume 8 um3 N 7.4-10.4 Abs Neutrophils 7.7 10^3/uL N 1.5-7.7 Abs Lymphocytes 3.1 10^3/uL N 1.0-4.8 Abs Monocytes 1.1 10^3/uL High 0-0.8 Abs Eosinophils 0.4 10^3/uL N 0-0.6 Abs Basophils 0.1 10^3/uL N 0-0.2 Abs Nucleated RBC 0.01 10^3/uL N Granulocyte % 62.0 % N 38-83 Lymphocyte % 24.9 % Low 25-47 Monocyte % 9.2 % High 1-9 Eosinophil % 2.9 % N 0-6 Basophil % 1.0 % N 0-2 Nucleated Red Blood Cells % 0 N 1 Because ethnic data is not always [...] Kidney failure <15 (or dialysis) Procedures Date Code Description Status 11/11/2018 15189 EKG Tracing & Interpretation Completed 09/13/2018 13063 ECHO Transthoracic, Real-Time 2D With Doppler And Color Completed Flow 09/13/2018 15600 ECHO Transthoracic, Real-Time 2D With Doppler And Color Completed Flow 03/10/2018 56786 Holter Monitor Review (24 hr)dr review & interp only Completed 03/08/2018 27028 ECG Monitor/Recording W/Visual Superimposition Scanning Completed 03/02/2018 57501 EKG Tracing & Interpretation Completed 02/25/2018 23287 ECHO Transthoracic, Real-Time 2D With Doppler And Color Completed Flow 02/25/2018 28569 ECHO Transthoracic, Real-Time 2D With Doppler And Color Completed Flow 01/21/2018 78480 EKG Tracing & Interpretation Completed 11/25/2017 90773 Treadmill Interp/Report Only Completed 11/25/2017 16016 Stress Test Supervsn W/Out I/R Completed 11/24/2017 10374 EKG, Interpretation Only Completed 11/23/2017 94715 EKG, Interpretation Only Completed 11/23/2017 89679 ECHO Transthorasic Realtime 2D W Doppler & Color Flow Hosp Completed 11/23/2017 25239 ECHO Transthorasic Realtime 2D W Doppler & Color Flow Hosp Completed 11/15/2017 85451 EEG Recording Awake & Drowsy Completed 02/12/2017 87515 Carpal Tunnel Release Completed 02/12/2017 78613 Carpal Tunnel Release Completed 11/18/2016 71394 Closed trtmt prox humeral fx Completed 07/16/2016 86191 EEG Recording Awake & Drowsy Completed 08/27/2015 29948 Electroencephalogram EEG Extended Monitoring Over 1 Hour Completed 08/27/2015 91279 ECHO Transthorasic Realtime 2D W Doppler & Color Flow Hosp Completed 08/08/2013 32589 ECHO Transthoracic, Real-Time 2D With Doppler And Color Completed Flow 07/25/2013 99132 EEG Recording Awake & Drowsy Completed 07/21/2013 67922 ECHO Transthorasic Realtime 2D W Doppler & Color Flow Hosp Completed Encounters Type Date Location Provider Dx Diagnosis Office Visit 10/04/2018 [place] Ronal Scott G40.209 Local-rel symptc 10:45a Services Of Coreen Pandey M.D. epi w cmplx prt seiz,not ntrct,w/o stat epi I48.2 Chronic atrial fibrillation R41.3 Other amnesia Z79.01 penitentiary (current) use of anticoagulants Office Visit 04/13/2018 10:30a [place] Scott G40.209 Local- rel Services Of Coreen Pandey M.D. 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 fibrillation I34.0 Nonrheumatic mitral (valve) insufficiency I35.0 Nonrheumatic aortic (valve) stenosis R05 Cough I50.32 Chronic diastolic (congestive) heart failure [facility] Hem[facility]rosis, 11:21a yen Queen II, M.D. unspecified joint Hospitalists R41.0 Disorientation, unspecified I48.2 Chronic atrial fibrillation Z86.73 Prsnl hx of TIA (TIA), and cereb infrc w/o resid deficits Office Visit 03/02/2018 [place] Martha Scott I42.8 Other cardiomyopathies 12:00p Cardiology Of Genaro Sahni [facility] I48.2 Chronic atrial fibrillation I34.0 Nonrheumatic mitral (valve) insufficiency I36.1 Nonrheumatic tricuspid (valve) insufficiency Office Visit 01/21/2018 11:20a [facility] Reema Santana, I48.2 Chronic atrial Of [facility] M.D. fibrillation I42.8 Other cardiomyopathies I34.0 Nonrheumatic mitral (valve) insufficiency I36.1 Nonrheumatic tricuspid (valve) insufficiency R21 Rash and other nonspecific skin eruption Office Visit 12/21/2017 1:45p [place] [facility] Edgar Scott G40.209 Local- rel Services Of Coreen Pandey M.D. symptc epi w cmplx prt seiz,not ntrct,w/o stat epi I69.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 Z91.19 Patient's noncompliance w oth medical treatment and regimen R45.4 Irritability and anger Office Visit 11/30/2017 1:15p [place] Ronal Scott G40.209 Local- rel Services Of Coreen Pandey M.D. symptc epi w cmplx prt seiz,not ntrct,w/o stat epi I69.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 R45.4 Irritability and anger Z91.19 Patient's noncompliance w oth medical treatment and regimen Office Visit 11/25/2017 [place] Lit FChasidy I42.9 Cardiomyopathy, 1:46p Cardiology Alphonso Robins unspecified I48.91 Unspecified atrial fibrillation Office Visit 11/24/2017 2:42p [facility] Reema Santana I50.9 Heart failure, Chi Werner unspecified I48.2 Chronic atrial fibrillation Office Visit 11/23/2017 1:43p Intensivists Brendon Chu J96.01 Acute respiratory Paulo, D.O. failure with hypoxia J81.0 Acute pulmonary edema I34.0 Nonrheumatic mitral (valve) insufficiency I24.8 Other forms of acute ischemic heart disease Office 11/16/2017 [facility] Geo G40.209 Local-rel Visit 10:44a Clinic Alphonso Carvajal symptc epi w cmplx prt seiz,not ntrct,w/o stat epi I69.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 Office 11/15/2017 [facility] Geo G40.209 Local-rel Visit 10:43a Clinic Alphonso Carvajal symptc epi w cmplx prt seiz,not ntrct,w/o stat epi I69.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 Office Visit 11/14/2017 [facility] Kevin G40.209 Local-rel 10:42a Clinic MD Albaro symptc epi w cmplx prt seiz,not ntrct,w/o stat epi I69.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 Office Visit 11/14/2017 9:59a Intensivists Belle Tijerina, R56.9 Unspecified convulsions I48.91 Unspecified atrial fibrillation 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 Carpal tunnel Services Of MD Yusuf syndrome, left C.M.A. upper limb S42.292D Oth disp fx of upper end l humer, subs for fx w routn heal S42.142D Disp fx of glenoid cav of scapula, l shldr, 7thD Office Visit 06/22/2017 [facility] Edgar Scott G40.109 Local-rel 10:15a Clinic Alphonso Pandey symptc epi w simp prt seiz,not ntrct, w/o stat epi I69.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 Z79.899 Other fdc (current) drug therapy Office Visit 05/03/2017 11:30a Orthopedic Vick Cruz G56. Carpal tunnel Services Of MD Yusuf syndrome, left C.M.A. upper limb S42.292D Oth disp fx of upper end l humer, subs for fx w routn heal S42.142D Disp fx of glenoid cav of scapula, l shldr, 7thD M19.042 Primary osteoarthritis, left hand M19.041 Primary osteoarthritis, right hand Office Visit 03/22/2017 10:45a Orthopedic Vick Cruz G56. Carpal tunnel Services Of MD Yusuf syndrome, left C.M.A. upper limb S42.292D Oth disp fx of upper end l humer, subs for fx w routn heal S42.142D Disp fx of glenoid cav of scapula, l shldr, 7thD M25.642 Stiffness of left hand, not elsewhere classified M19.042 Primary osteoarthritis, left hand Office Visit 02/22/2017 2:15p Orthopedic Vick Cruz G56.02 Carpal tunnel Services Of MD Yusuf syndrome, left C.M.A. upper limb S42.292D Oth disp fx of upper end l humer, subs for fx w routn heal S42.142D Disp fx of glenoid cav of scapula, l shldr, 7thD M25.642 Stiffness of left hand, not elsewhere classified Office Visit 01/11/2017 11:15a Orthopedic Vick Cruz G56.02 Carpal tunnel Services Of MD Yusuf syndrome, left C.M.A. upper limb S42.292D Oth disp fx of upper end randa nuñez, subs for fx w routn heal S42.142D Disp fx of glenoid cav of scapula, l shldr, 7thD Office Visit 12/21/2016 11:30a Orthopedic Vick F S42.292D Oth disp fx Services Of MD Yusuf of upper end C.M.A. l joaquin, subs for fx w routn heal G56.02 Carpal tunnel syndrome, left upper limb Office Visit 11/16/2016 Orthopedic Services Of Ortho Clinical 3:00p C.M.A. Office Visit 11/16/2016 [facility] Edgar Scott I69.39 Other sequelae 1:30p Clinic Alphonso Pandey 8 of cerebral infarction G40.109 Local-rel symptc epi w simp prt seiz,not ntrct, w/o stat epi Office Visit 11/11/2016 2:20p Orthopedic Vick F S42.292A Oth disp fx of Services Of MD Yusuf upper end of C.M.A. left humerus, init for clos fx Office Visit 08/04/2016 4:00p [place] Scott I69.398 Other sequelae Neurologic Alphonso Pandey of cerebral Services Of Inventory Planner infarction G40.109 Local-rel symptc epi w simp prt seiz,not ntrct, w/o stat epi Office Visit 07/17/2016 [facility] Kevin I63.9 Cerebral 3:10p Clinic MD Albaro infarction, unspecified Office Visit 07/16/2016 [facility] Kevin I63.9 Cerebral 3:07p Clinic MD Albaro infarction, unspecified I10 Essential (primary) hypertension I48.91 Unspecified atrial fibrillation Office Visit 07/15/2016 [facility] Kevin Ramirez63.9 Cerebral 3:06p Clinic MD Albaro infarction, unspecified I10 Essential (primary) hypertension I48.91 Unspecified atrial fibrillation Office Visit 05/12/2016 [facility] Edgar Scott G40.109 Local-rel symptc 11:45a Services Of Coreen Pandey M.D. epi w simp prt seiz,not ntrct, w/o stat epi Office Visit 08/29/2015 [facility] Edgar Scott G40.109 Local-rel symptc 10:44a Rosa Pandey M.D. epi w simp prt seiz,not ntrct, w/o stat epi Office Visit 08/28/2015 [facility] Edgar Scott G40.109 Local-[facility] symptc 2:06p Rosa Pandey M.D. epi w simp prt seiz,not ntrct, w/o stat epi Office Visit 08/28/2015 [facility] Kevin 518.81 Respiratory 12:35p [facility]oc[facility] Failure Acute M.DChasidy 780.39 Convulsions Other 288.60 Leukocytosis, Unspecified 276.1 Hyposmolality & Or Hyponatremia Office Visit 08/27/2015 [facility] Edgar Scott G40.109 Local-rel 2:05p Rosa Pandey M.D. symptc epi w simp prt seiz,not ntrct, w/o stat epi R94.01 Abnormal electroencephalogram [EEG] Office Visit 08/27/2015 12:34p [facility] David Rubin 780.39 Convulsions Other Assoc, D.O. Hospitalists 518.81 Respiratory Failure Acute 288.60 Leukocytosis, Unspecified 276.1 Hyposmolality & Or Hyponatremia Office Visit 04/24/2015 9:45a [facility] Edgar Scott 434.11 Cerebral Services Of Coreen Pandey M.D. Embolism W/ Cerebral Infarc 345.40 Local-Related Epilepsy W/O Mention Of Intractable Epilepsy 438.89 Cerebrovascular Disease Late Effect Other 438.7 Cerebrovascular Disease Late Effects,Disturbances Of Vision Office Visit 01/18/2015 [facility] Edgar Scott 434.11 Cerebral 11:00a Rosa Pandey M.D. Embolism W/ Cerebral Infarc 345.40 Local-Related Epilepsy W/O Mention Of Intractable Epilepsy Office Visit 01/07/2015 [facility] Dain 780.39 Convulsions 8:27a Clinic MD Jose Other 435.9 TIA Ischemia Cerebral Transient Unspec Office Visit 08/16/2013 11:00a [place] Ronal Scott 434.11 Cerebral Services Of Coreen Pandey M.D. Embolism W/ Cerebral Infarc Office Visit 07/20/2013 10:48a [facility] Isabel Chu 434.91 Occlusion Services Of Inventory Planner Stackman, M.D. Cerebral Artery Unspec W/ Cerebral Infarc Plan of Treatment Future Appointment(s):04/04/2019 10:15 am - Edgar Pandey M.D. at [place] [facility] Services Of [facility]11/11/2018 - Reema Santana M.D.I48.2 Chronic atrial fibrillationFollow up:6 months with ENGINEERING PSYCHOLOGIST Annual with me.Recommendations:Continue Xarelto for stroke prevention, digoxen and coreg for rate control.I34.0 Nonrheumatic mitral (valve) insufficiencyComments:Moderate leak on echoRecommendations:Current medications will help.I63.9 Cerebral infarction, rwhfomslvbvN70.5 Hyperlipidemia, unspecifiedFollow up:Also give pt labs Dr Pandey ordered last month, can fill together at the same time.Recommendations: Continue Lipator, we will update labs and call with results.
[2018-12-01 12:04] LABS: Alcohol < 10 mg/dL (<10)
[2018-12-01] MEDS ORDERED: levETIRAcetam IV* 750 MG in NS 0.9% 100 ML* 100 ML IVPB ONE (13:03)
[2018-12-01] MEDS ORDERED: lamoTRIgine TAB(*) 25 MG PO ONE (13:04)
[2018-12-01] MEDS ORDERED: Clobetasol 0.05% OINT* 30 GM TUBE TOPICAL PRN (14:13)
[2018-12-01] MEDS ORDERED: Mupirocin 2% OINT* TUBE TOPICAL PRN (14:13)
--- NOTE | 2018-12-01 15:21 | CONS ---
NEUROLOGY CONSULTATION: DATE OF CONSULT: 12/01/18 LOCATION: She is in the emergency room. REFERRING PHYSICIAN: Dr. Robledo. CHIEF COMPLAINT: Episode of confusion, disturbed speech, vomiting. HISTORY OF PRESENT ILLNESS: Abeba Patel is a woman well known to me from prior evaluation and treatment of stroke and subsequent seizure disorder. She felt she was fine last night and then when she woke up this morning, she felt nauseous. She is inconsistent in the chronological details, but apparently had some vomiting and never lost consciousness. With specific questioning, she might have vomited up her pills. At other times, she says she woke up, was okay , and did not have vomiting until later. Her recalls her bringing him some coffee in bed and she seemed fine at that point in time. When he got up and went out, she had vomited on the table and was talking incomprehensibly. She would repeat words over and over and was trying to name her pills, but it did not make any sense. She was brought into the emergency room as a code linton. In the emergency room, she was making sense, but continued to be somewhat inconsistent. With multiple conversations, she admits that she has not been taking her medications regularly. At other times, she then says that she has been taking her medications regularly. Several hours after initial presentation, she feels like she is pretty much back to her baseline. She does not recall all the details of this morning, but is inconsistent in her recall as well. PAST MEDICAL HISTORY: Her past history is notable for an initial stroke in 2012 , which involved the left thalamus. Her imaging really looks to be more of a left posterior cerebral artery and medial temporal lobe stroke. She has been aphasic since the initial stroke. She presented with seizures subsequently in about 2014. She had another seizure when she was noncompliant. Over my followup with her in the office, she is variably compliant, but difficult to nail down on details. Her lamotrigine levels have fluctuated over the years and last one in the hospital records was just 2 on 11/13/17. Her last Keppra level was less than 2 the same date. Past medical history is otherwise notable for hypertension; alcohol abuse; chronic atrial fibrillation, on longstanding anticoagulation; congestive heart failure; COPD; osteoporosis; carpal tunnel releases. MEDICATIONS: At home are supposed to be: 1. Xarelto 15 mg p.o. daily. 2. Keppra 750 mg p.o. b.i.d. 3. Lamictal 100 mg p.o. b.i.d. 4. Digoxin 0.125 mg daily. 5. Lipitor 20 mg daily. 6. Diltiazem 180 mg a day. ALLERGIES: She does not have any drug allergies. 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 She lives with her , who is a retired musical string maker. She quit smoking many decades ago. REVIEW OF SYSTEMS: She denies any recent seizures. She has not had any recent fevers or infections or falls. She denies breathing problems or chest pain. PHYSICAL EXAM: She is somewhat thin and has dry oral mucosa. Temperature 97.2 , blood pressure variably 160/100 to 120/90. Heart rate is in the 70s and irregular. Respiratory rate is 22 and oxygen saturation is 98% on room air. Heart is in an irregular rhythm, but I do not hear any murmurs. Neck is supple. There are no cervical bruits. Oral mucosa is a little dry, but there is no trauma. Lungs are clear. Neurological Exam: Pupils react equally from 3 to 2 mm. Eye movements are notable for some nystagmus and rightward gaze only. Visual mitchell are full to confrontation other than some difficulty in the left inferior quadrant. Facial musculature is symmetric. Facial sensation to light touch is symmetric. Speech is mildly dysarthric, but from my prior experience with her is pretty typical. Motor exam reveals resistive strength in all limbs symmetrically. There is no drift of any limbs. Pin discrimination is symmetrical in the limbs. Reflexes are brisk in the biceps and knees. Plantar responses are flexor. Speech is halting, but she does not make any errors. Comprehension is relatively intact. Again, her speech and language function seems to me at about her baseline. She is an inconsistent historian, perhaps a bit more than usual. DIAGNOSTIC STUDIES/LAB DATA: Laboratory data includes a CBC with elevated white blood cell count of 14.3, elevation in absolute neutrophils. INR is slightly elevated at 1.09, PTT normal at 29.3. Chemistry profile notable for elevated lactic acid at 2.4; glucose 161; BUN, a little bit elevated at 28.6. Creatinine and electrolytes are otherwise normal. Liver enzymes are normal. Cholesterol is 189, LDL 97. Serum alcohol level is undetectable. Additional laboratory data notable for CT of the brain, which shows left occipital and temporal infarction. There is also a small calcified meningioma in the left middle cranial fossa. I reviewed the images and I agree. 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 There was stenosis of that artery in the past. There is mild narrowing of the distal left vertebral artery. There is no internal carotid artery stenosis. IMPRESSION AND PLAN: Impression is that of a possible seizure. She is unreliable in terms of compliance. I have asked Dr. Robledo to send off for anticonvulsant levels for her Lamictal and lamotrigine and give her 750 mg of Keppra IV. She would probably be admitted for observation overnight. Continue to follow her along with you. [id number]/[facility] #: [id number] IAN
[2018-12-01 16:07] LABS: Digoxin 0.6 ng/ml (0.8-2.0)
[2018-12-01] MEDS: Rivaroxaban TAB(*) 15 MG PO SCH (16:09)
[2018-12-01] MEDS: lamoTRIgine TAB(*) 25 MG PO SCH ×2 (16:09→20:18)
--- NOTE | 2018-12-01 16:48 | HP ---
HISTORY AND PHYSICAL: DATE OF ADMISSION: 12/01/18 ADMITTING DOCTOR: Tucker Mojica MD PRIMARY CARE PHYSICIAN: Jigar Biswas MD CHIEF COMPLAINT: Word-finding difficulty, nausea, confusion. HISTORY OF PRESENT ILLNESS: Abeba Patel is a 78-year-old female with past medical history of left occipital CVA; seizure disorder; chronic atrial fibrillation, on Xarelto; COPD; CHF; hypertension; hyperlipidemia, who was in her normal state of health until 8 a.m. on the morning of admission when the noticed that she was vomiting at the breakfast table. She then had some word-finding difficulty and pointing repeatedly to one of her pill bottles , but unable to express herself clearly. EMS was called and trans0:46 a.m. Sported to the [facility] Emergency Room where her word- finding difficulties had improved. She was a code linton called at 1he had a CT of her head, which showed an old infarct in the left occipital and parietal lobes. Neurology was consulted with Dr. Pandey. A CTA of her head has been obtained, which demonstrates occlusion of the right posterior cerebral artery of unclear duration, but upon talking with Dr. Pandey, it was at least extremely stenotic several years ago. There was mild narrowing of the distal left vertebral artery and evidence of remote left FIELD ARTILLERY BASIC territory infarct with chronic small vessel ischemic changes. She is still notably more confused from her baseline, thinking the year is 2012 and was referred to the hospitalist service for admission. She had vomited 4 times "white vomitus." Nausea has resolved. Denies any chest pain, shortness of breath, fevers, or chills. She has had a cough for about 2 weeks and so did her at the bedside. She says every fifth day or so she misses a complete day of her antiseizure medications. This last happened 3 days ago. PAST MEDICAL HISTORY: Left occipital CVA with subsequent seizures; chronic atrial fibrillation, on Xarelto; COPD; CHF; hypertension; hyperlipidemia; occasional medication noncompliance. MEDICATIONS: Include: 1. Keppra 750 mg p.o. b.i.d. 2. Lamictal 100 mg p.o. b.i.d. 3. Digoxin 0.125 mg p.o. b.i.d. 4. Carvedilol 3.125 mg p.o. b.i.d. 5. Lipitor 20 mg p.o. at bedtime. 6. Xarelto 15 mg p.o. daily. 7. Aspirin 81 mg daily. 8. Bactroban topical daily p.r.n. 9. Clobetasol 0.05% ointment topical b.i.d. p.r.n. ALLERGIES: No known drug allergies. FAMILY HISTORY: Mother approximately age 75 of unknown cause, had a history of dementia. Father was murdered in his 70s. Brother 82 has gone through health issues that she cannot elaborate on. SOCIAL HISTORY: The patient is a former smoker between 1957 and 1971, one pack per day, so 14-pack years, but then additional pipe smoking. No drug use. Denies alcohol use at this time. Past admission in February, she attested to 3 to 4 glasses of wine daily. 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 She desires to be a full code. Her medical surrogate is her Kevin Patel who is at the bedside. REVIEW OF SYSTEMS: A complete 14-point review of systems is negative except as per HPI. She does attest to occasional edema. Denies any headaches. PHYSICAL EXAMINATION GENERAL APPEARANCE: No acute distress. VITAL SIGNS: Temperature 97.5, heart rate between 63 and 108, respiratory rate 17 to 39, blood pressure currently 170/104. HEENT: Normocephalic, atraumatic. Pupils are equal, round, and reactive to light. Extraocular motions intact. No scleral icterus. No oropharynx lesions. Mucous membranes moist. NECK: Supple. No cervical lymphadenopathy. LUNGS: Clear to auscultation bilaterally with no wheezing, rales, or rhonchi. CARDIOVASCULAR: Irregularly irregular. No murmurs, rubs, or gallops. ABDOMEN: Soft, nontender, nondistended. EXTREMITIES: Warm, well perfused. No peripheral edema. NEURO: Hip flexion, dorsiflexion and plantarflexion are 5/5. Biceps, director of field service, deltoids are 5/5. She has what looks like a resting tremor in the left upper extremity with much slower [id number]. No pronator drift. Relatively clumsy rapid hand motions. Cranial nerves II through XII intact. She has intermittent word-finding difficulty and slightly dysarthric speech. SKIN: No lesions. No rashes. DIAGNOSTIC STUDIES/LAB DATA: White count 14.3, hemoglobin 14.2, hematocrit 44 , platelets 238. INR 1.09. Sodium 142, potassium 4.5, chloride 107, carbon dioxide 27, BUN 20, creatinine 0.70, glucose 161, lactic acid 2.4. Total bili 0.5, AST 16, ALT 14, alk phos 95. Troponin 0.00. Triglycerides 112, cholesterol 189, LDL 97, HDL 69.6. Imaging: Chest x-ray showed cardiomegaly and mild interstitial prominence. No definitive pneumonia. CT of the brain demonstrated an old infarction in the left occipital and parietal lobes and probable calcified meningioma in the left middle cranial fossa. No intracranial hemorrhage is noted. CTA of the head demonstrated: 1. Occlusion of the right posterior cerebral artery of uncertain acuity. 2. Atherosclerosis. 3. There was mild narrowing of the distal left vertebral artery. 4. No internal carotid artery stenosis by NASCET criteria. 5. Evidence of remote left FIELD ARTILLERY BASIC territory infarction with chronic small vessel ischemic changes. EKG: Tachycardic, atrial fibrillation with PVC, and no ST elevations or depressions. There is nonspecific intraventricular conduction delay, QRS 115, and some T-wave flattening in III and aVF. ASSESSMENT AND PLAN: Abeba Patel is a 78-year-old female with past medical history of atrial fibrillation, stroke accompanied by seizure and initial aphasia, made a lot of progress, presenting with vomiting, word-finding difficulty, dysarthria and confusion. Appreciate Dr. Pandey of neurology for consultation who has recommended to get Keppra and Lamictal levels especially in her setting of seizure medication noncompliance. Continue with Keppra 750 b.i.d. for now and Lamictal at the lower level 25 b.i.d. from her home 100 b.i.d. Her Kevin attests that she is pretty close back to her baseline with just slight worsened word-finding difficulty and dysarthria at the moment. Dr. Pandey also thought she was pretty close to her baseline and thought she would not necessarily need to stay in the hospital for too long. She is still pending a UA collection. She does have leukocytosis of 14.3 and a recent suspected upper respiratory viral illness passed between and her. Rule out urinary tract infection. She has been placed on observation status with telemetry monitoring. For her atrial fibrillation, continue her Coreg 3.125 mg b.i.d. and may give extra doses of Lopressor if necessary for rapid ventricular response. Continue her digoxin. I am adding a digoxin level. For her hyperlipidemia, continue her Lipitor. For her seizure disorder, as mentioned continue her antiepileptic medications as above, but also Dr. Pandey mentioned getting an EEG which we will obtain. I have a call out to Dr. Pandey to see if he wants to continue the aspirin and Plavix (Addendum: he recommended both continued) at this time and whether or not we would pursue a brain MRI to further evaluate for another infarction. She can eat a heart-healthy diet. She is a full code. Medical surrogate is her Kevin Patel. [id number]/[facility] #: [id number] IAN
[2018-12-01] MEDS: Atorvastatin* 20 MG TAB PO SCH (20:17)
[2018-12-01] MEDS: levETIRAcetam IV* 750 MG in NS 0.9% 100 ML* 100 ML IVPB SCH (20:17)
[2018-12-01] MEDS: Carvedilol TAB* 3.125 MG PO SCH (20:18)
[2018-12-01] MEDS: Digoxin TAB* 0.125 MG PO SCH (20:18)
[2018-12-02 06:00] LABS: ABS Basophils 0.1 10^3/ul (0-0.2); ABS Eosinophils 0.3 10^3/ul (0-0.6); ABS Lymphocytes 1.8 10^3/ul (1.0-4.8); ABS Monocytes 0.9 10^3/ul (0-0.8); ABS Neutrophils 11.8 10^3/ul (1.5-7.7); ABS Nucleated RBC 0 10^3/ul; Eosinophil % 1.9 %; Hematocrit 41 % (35-47); Hemoglobin 13.3 g/dl (12.0-16.0); Lymphocyte % 12.1 %; Mean Corpuscular HGB Conc 33 g/dl (31-36); Mean Corpuscular Hemoglobin 31 pg (27-31); Mean Corpuscular Volume 94 fL (80-97); Mean Platelet Volume 8.7 fL (7.4-10.4); Nucleated Red Blood Cells % 0; Platelet Count 221 10^3/ul (150-450); Red Blood Count 4.37 10^6/ul (4.00-5.40); Red Cell Distribution Width 14 % (10.5-15); White Blood Count 14.9 10^3/ul (3.5-10.8)
[2018-12-02] MEDS: levETIRAcetam IV* 750 MG in NS 0.9% 100 ML* 100 ML IVPB SCH ×2 (08:13→20:21)
[2018-12-02] MEDS: lamoTRIgine TAB(*) 25 MG PO SCH ×2 (08:26→20:21)
[2018-12-02] MEDS: Aspirin 81 mg CHEW TAB* 81 MG TAB.CHEW PO SCH (08:26)
[2018-12-02] MEDS: Carvedilol TAB* 3.125 MG PO SCH ×2 (08:27→20:25)
[2018-12-02] MEDS: Digoxin TAB* 0.125 MG PO SCH ×2 (08:28→20:26)
[2018-12-02] MEDS: Rivaroxaban TAB(*) 15 MG PO SCH (08:29)
[2018-12-02 09:33] LABS: C Reactive Protein 1.32 mg/L (<8.01)
[2018-12-02 11:10] LABS: BUN/Creatinine Ratio 25.8 (8-20); C Reactive Protein 8.96 mg/L (<8.01); Calcium 9.1 mg/dL (8.6-10.3); EGFR Non-African American 86.6 (>60); Phosphorus 2.6 mg/dL (2.5-5.0); Potassium 4.2 mmol/L (3.5-5.0)
[2018-12-02] MEDS: LORazepam TAB(*) 0.5 MG PO ONE ×2 (14:38→19:41)
[2018-12-02] MEDS ORDERED: LORazepam TAB(*) 0.5 MG PO ONE (15:09)
[2018-12-02 16:20] LABS: Lamotrigine 12.3 mcg/mL (2.5 - 15.0)
[2018-12-02] MEDS: Atorvastatin* 20 MG TAB PO SCH (20:25)
[2018-12-03] MEDS: levETIRAcetam IV* 750 MG in NS 0.9% 100 ML* 100 ML IVPB SCH (08:22)
[2018-12-03] MEDS: Aspirin 81 mg CHEW TAB* 81 MG TAB.CHEW PO SCH (08:34)
[2018-12-03] MEDS: Digoxin TAB* 0.125 MG PO SCH ×2 (08:35→19:39)
[2018-12-03] MEDS: Carvedilol TAB* 3.125 MG PO SCH ×2 (08:36→19:38)
[2018-12-03] MEDS: lamoTRIgine TAB(*) 25 MG PO SCH (08:36)
[2018-12-03] MEDS: Rivaroxaban TAB(*) 15 MG PO SCH (08:36)
[2018-12-03 10:17] LABS: Levetiracetam 23.3 mcg/mL
--- NOTE | 2018-12-03 14:01 | PN ---
CC: Dr. Edgar Pandey; Dr. 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 Dr. Pandey saw her in consultation on 12/01/18. He follows her as an outpatient. His notes document the previous stroke in 2012 involving the left medial temporal lobe in the RELIEF SALESPERSON distribution and complication of seizures with varying antiepileptic medications as an outpatient. As an outpatient, she is on Keppra 750 mg p.o. b.i.d. and lamotrigine 100 mg p.o. b.i.d. Question of stroke versus seizure was raised as etiology. She does have significant risk factors for stroke including previous stroke, hypertension, and chronic atrial fibrillation, on Xarelto. She is on Xarelto, aspirin, and atorvastatin at baseline. She went on to have an MRI of the brain yesterday which I reviewed directly and it showed chronic ischemic changes with atrophy and old left occipital stroke. In review, there was significant atrophy and significant previous ischemia. I reviewed and compared it to a previous MRI with no significant change noted. In the ER, she also had a CTA of the brain, which showed occlusion of the right RELIEF SALESPERSON with narrowing of the distal left vertebral artery. Her lamotrigine level has come back as 12.3 and levetiracetam as 23.3. It is unclear whether these are non-trough. They were drawn in the morning. She may have taken her medications in the morning. She had been put on to low-dose lamotrigine when she came in, as it was unclear if she had been getting her outpatient dose on a regular basis. Since in hospital, she has improved, but is still not quite back to baseline. Her laboratory tests do show an elevated white count of 14.9 with 11.8% neutrophils. Lactate is 2.3. MEDICATIONS: Include: 1. Aspirin 81 mg p.o. daily. 2. Atorvastatin 20 mg p.o. q.h.s. 3. Coreg 3.125 mg p.o. b.i.d. 4. Digoxin 0.125 mg p.o. b.i.d. 5. Lamotrigine 100 mg p.o. b.i.d., increased today back to her outpatient dose. 6. Levetiracetam 750 mg p.o. b.i.d. 7. Clobetasol 0.05% ointment applied b.i.d. p.r.n. itching. 8. Bactroban 2% ointment applied daily p.r.n. rash. 9. Xarelto 15 mg p.o. daily. ALLERGIES: She has no known drug allergies. SOCIAL HISTORY: She no longer smokes. She has a 15-year history of smoking followed by pipe smoking, and she shares a bottle of wine with her which usually lasts her for 2 days. It was confirmed there was no period of time that she did not drink, and if anything, there may have been more alcohol use. PHYSICAL EXAMINATION: On examination, her temperature was 99 degrees Fahrenheit temporally, her pulse was 80, respiratory rate was 18, saturation was 89%, and blood pressure was 133/95. She had an irregularly irregular cardiac rhythm, and lungs were clear to auscultation. There was no evidence of peripheral edema or rash. She had no cord to palpation. Her peripheral pulses were intact in the dorsalis pedis and posterior tibialis. She was awake, interactive, articulate, although thought that it was May, did not know the year; however, she knew that Feliciano was the president. She repeated some questions. She was very inquisitive. She had full extraocular movements with saccadic intrusions. There was a right upper quadrantanopia on double simultaneous confrontation. Her facial expression sensation and hearing were equal. Palate was upgoing. Tongue was midline. Sternocleidomastoid and trapezius were 5/5 in strength. There was no pronator drift. She gave good strength in her upper and lower extremities with normal [id number] and heel- to-bar movements. She denied any asymmetries to sharp sensation. Reflexes were 2+ and symmetric in the biceps and brachioradialis, 3+ at the right triceps , 2+ at the left triceps, 3+ at the right knee, 2+ at the left knee and slight at the ankles. Toes were flexor response. She did stand and walked with increased stance, holding onto the hands of the examiner. She felt a little wobbly. DIAGNOSTIC STUDIES/LAB DATA: Lamotrigine level was 12.3. Levetiracetam level was 23.3. MRI of the brain did not show evidence of a new stroke, but did show old ischemic injury which was significant, as well as atrophy. This film was reviewed directly and compared to previous, and as noted above, her white count was 14.9 with 11.8 absolute neutrophils. Elevated lactic acid at 2.3. Her BUN and creatinine ratio was elevated at 25.8. Glucose was 140, and C-reactive protein was elevated at 8.96. IMPRESSION: A 78-year-old woman with a history of chronic atrial fibrillation, left posterior cerebral artery stroke, atrophy with alcohol use, and epilepsy, on lamotrigine and levetiracetam, now with an episode of confusion, slurred speech, vomiting, questioned to be stroke versus seizure. In regard to new stroke, there is no new stroke on MRI. It is still possible that this could be a transient ischemic attack. She is in atrial fibrillation and I would continue her on Xarelto. We talked about how missing 1 dose could result in decreased anticoagulation and result in stroke. She is on aspirin as an outpatient and I would continue this given the burden of small vessel ischemic disease with no history of previous bleed. She also has significant history of vascular disease. The importance of medication compliance was discussed not only for stroke, but also for epilepsy. I suggested that she and her work together on this and using a pillbox. Extensive education was provided. Epilepsy is on the differential diagnosis. Her levels were good; however, they may be non-trough. We will put her back on to her outpatient doses of Keppra 750 mg p.o. b.i.d. and lamotrigine 100 mg p.o. b.i.d. given her significant levels. On differential had been noncompliance. For breakthrough seizure, certainly infection could lower seizure threshold, one cannot exclude the contribution of alcohol use in epilepsy; however, no history of abstinence and withdrawal was noted. She has continued with elevated white blood cell count and I questioned superimposed infection that could have lowered her seizure threshold. I have spoken to Dr. Ana Rosa Kirby and she will be checking urinalysis as well as looking for any other signs of infection. She is at risk of aspiration given her vomiting. Previous chest x-ray was okay and her lungs were clear to auscultation. TIME SPENT: Over 60 minutes was spent in direct patient care and case was discussed with Dr. Ana Rosa Kirby who is covering Dr. Jigar Biswas's service today. [id number]/[facility] #: [id number] MTDRozina
[2018-12-03 17:04] LABS: Urine Appearance Clear; Urine Bacteria 1+ (Absent); Urine Bilirubin Negative (Negative); Urine Blood 2+ (Negative); Urine Color Yellow; Urine Glucose Negative (Negative); Urine Ketones Negative (Negative); Urine Nitrite Negative (Negative); Urine Protein Negative (Negative); Urine Red Blood Cell Trace(0-2/hpf) (Absent); Urine Specific Gravity 1.008 (1.010-1.030); Urine Urobilinogen Negative (Negative); Urine White Blood Cell Trace(0-5/hpf) (Absent)
[2018-12-03] MEDS: Atorvastatin* 20 MG TAB PO SCH (19:36)
[2018-12-03] MEDS: levETIRAcetam TAB* 500 MG PO SCH (19:39)
[2018-12-03] MEDS: lamoTRIgine TAB(*) 100 MG PO SCH (19:39)
[2018-12-04 05:33] LABS: ABS Basophils 0.1 10^3/ul (0-0.2); ABS Eosinophils 0.3 10^3/ul (0-0.6); ABS Lymphocytes 2.1 10^3/ul (1.0-4.8); ABS Neutrophils 7.8 10^3/ul (1.5-7.7); ABS Nucleated RBC 0 10^3/ul; Eosinophil % 2.6 %; Hematocrit 38 % (35-47); Hemoglobin 12.5 g/dl (12.0-16.0); Lymphocyte % 18.3 %; Mean Corpuscular HGB Conc 33 g/dl (31-36); Mean Corpuscular Hemoglobin 30 pg (27-31); Mean Corpuscular Volume 92 fL (80-97); Mean Platelet Volume 8.5 fL (7.4-10.4); Nucleated Red Blood Cells % 0; Platelet Count 204 10^3/ul (150-450); Red Blood Count 4.11 10^6/ul (4.00-5.40); Red Cell Distribution Width 13 % (10.5-15); White Blood Count 11.3 10^3/ul (3.5-10.8)
[2018-12-04 05:50] LABS: Albumin 3.6 g/dL (3.2-5.2); Albumin/Globulin Ratio 1.4 (1-3); BUN/Creatinine Ratio 19.4 (8-20); C Reactive Protein 89.22 mg/L (<8.01); Calcium 8.6 mg/dL (8.6-10.3); EGFR Non-African American 93.1 (>60); Globulin 2.5 g/dL (2-4); Potassium 3.6 mmol/L (3.5-5.0); Total Bilirubin 1.2 mg/dL (0.2-1.0); Total Protein 6.1 g/dL (6.4-8.9)
[2018-12-04] MEDS: Digoxin TAB* 0.125 MG PO SCH ×2 (08:48→19:51)
[2018-12-04] MEDS: lamoTRIgine TAB(*) 100 MG PO SCH ×2 (08:48→19:52)
[2018-12-04] MEDS: Carvedilol TAB* 3.125 MG PO SCH ×2 (08:48→19:49)
[2018-12-04] MEDS: Rivaroxaban TAB(*) 15 MG PO SCH (08:48)
[2018-12-04] MEDS: Aspirin 81 mg CHEW TAB* 81 MG TAB.CHEW PO SCH (08:49)
[2018-12-04] MEDS: levETIRAcetam TAB* 500 MG PO SCH ×2 (08:49→19:52)
--- NOTE | 2018-12-04 17:08 | PN ---
Progress Note - Progress Note Date of Service: 12/04/18 Note: NO seizure. WBC slightly improved, CRP elevated for unclear reasons. No growth on Urine culture. CXR without infiltrate. Stopped by earlier in day. Very pleasant. This evening, after sun was down, was quite expressive and verbal about being held at the hospital while she wanted to go home. At first, forgot her had been here today. Vital Signs 12/03/18 12/03/18 12/03/18 19:17 19:39 20:00 Temperature 97.7 F Pulse Rate 81 72 Respiratory 20 20 Rate Blood Pressure 123/57 (mmHg) O2 Sat by Pulse 95 Oximetry 12/03/18 12/04/18 12/04/18 23:51 03:41 08:00 Temperature 99.6 F 98.4 F Pulse Rate 74 85 Respiratory 24 20 17 Rate Blood Pressure 121/77 136/67 (mmHg) O2 Sat by Pulse 92 89 Oximetry 12/04/18 12/04/18 12/04/18 08:09 08:48 11:58 Temperature 97.9 F 97.4 F Pulse Rate 84 84 61 Respiratory 20 20 Rate Blood Pressure 148/72 109/51 (mmHg) O2 Sat by Pulse 91 98 Oximetry Regular cardiac rhythm to auscultation, lungs clear Full extraocular movement Facial expression symmetric Forgetful re: details of care. No dysarthria No pronator drift. Full strength in arms and legs. No dysmetria in arms and legs Observed getting up to go to bathroom on earlier visits. Laboratory Results - last 24 hr 12/03/18 12/04/18 12/04/18 16:15 05:19 05:19 WBC 11.3 H RBC 4.11 Hgb 12.5 Hct 38 MCV 92 MCH 30 MCHC 33 RDW 13 Plt Count 204 MPV 8.5 Neut % (Auto) 69.2 Lymph % (Auto) 18.3 Lamb % (Auto) 9.0 Eos % (Auto) 2.6 Baso % (Auto) 0.9 Absolute Neuts (auto) 7.8 H Absolute Lymphs (auto) 2.1 Absolute Monos (auto) 1.0 H Absolute Eos (auto) 0.3 Absolute Basos (auto) 0.1 Absolute Nucleated RBC 0 Nucleated RBC % 0 Sodium 137 Potassium 3.6 Chloride 104 Carbon Dioxide 27 Anion Gap 6 BUN 12 Creatinine 0.62 Est GFR ( Amer) 112.6 Est GFR (Non-Af Amer) 93.1 BUN/Creatinine Ratio 19.4 Glucose 114 H Calcium 8.6 Total Bilirubin 1.20 H AST 13 ALT 10 Alkaline Phosphatase 72 C-Reactive Protein 89.22 H Total Protein 6.1 L Albumin 3.6 Globulin 2.5 Albumin/Globulin Ratio 1.4 Urine Color Yellow Urine Appearance Clear Urine pH 6.0 Ur Specific Atkinson 1.008 L Urine Protein Negative Urine Ketones Negative Urine Blood 2+ A Urine Nitrate Negative Urine Bilirubin Negative Urine Urobilinogen Negative Ur Leukocyte Esterase 1+ A Urine WBC (Auto) Trace(0-5/hpf) Urine RBC (Auto) Trace(0-2/hpf) Ur Squamous Epith Cells Present A Urine Bacteria 1+ A Urine Glucose Negative I/P: 78 year old woman with vomiting and confusion in setting of elevated WBC and CRP for unclear reasons. Had been improving in interactions and alertness. Showing frustration and confusion tonight, raising question of sundowning. No clear focal findings. No other evidence to suggest withdrawal or seizure. Spoke with Dr. Ana Rosa Kirby so that she is aware of clinical change Continue on current antiepileptic medications. Ongoing work up for infection and cause of CRP. 30 minutes spent in patient care.
[2018-12-04] MEDS ORDERED: LORazepam TAB(*) 0.5 MG PO PRN (18:36)
[2018-12-04] MEDS: Atorvastatin* 20 MG TAB PO SCH (19:43)
--- NOTE | 2018-12-05 03:57 | EEG ---
ELECTROENCEPHALOGRAM: DATE OF STUDY: 12/01/18 LOCATION: She is an inpatient in room 435. REFERRING PHYSICIAN: Dr. Mojica. CLINICAL HISTORY: Episode of confusion and vomiting in the morning of this recording. There is a history of left hemisphere stroke and epilepsy. MEDICATIONS: Include Keppra, lamotrigine, atorvastatin, digoxin. EEG DESCRIPTION: This 16-channel EEG is remarkable for background rhythms consisting of an alpha rhythm in the occipital derivations and about 7 to 8 cycles per second in the right occipital region and about 7 on the left. The patient is clinically awake but drowses on and off. There is episodic slowing from the left hemisphere, mainly in the temporal region. The patient drowses intermittently and sleep spindles noted. Activation procedures are not attempted. There were occasional phase reversing spike and slow wave discharges from the left mid temporal region. These occur a little bit more commonly when she is drowsy than when awake. There are no clinical events. CLINICAL IMPRESSION: Abnormal EEG due to slowing as well as phase reversing spike and slow wave discharges from the left temporal region. 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 [id number]/[facility] #: [id number] IAN
[2018-12-05 05:43] LABS: ABS Basophils 0.1 10^3/ul (0-0.2); ABS Eosinophils 0.6 10^3/ul (0-0.6); ABS Lymphocytes 2.2 10^3/ul (1.0-4.8); ABS Monocytes 1.1 10^3/ul (0-0.8); ABS Neutrophils 7.5 10^3/ul (1.5-7.7); ABS Nucleated RBC 0 10^3/ul; Eosinophil % 5.3 %; Hematocrit 38 % (35-47); Hemoglobin 12.5 g/dl (12.0-16.0); Lymphocyte % 19.1 %; Mean Corpuscular HGB Conc 33 g/dl (31-36); Mean Corpuscular Hemoglobin 31 pg (27-31); Mean Corpuscular Volume 92 fL (80-97); Mean Platelet Volume 8.7 fL (7.4-10.4); Nucleated Red Blood Cells % 0; Platelet Count 210 10^3/ul (150-450); Red Blood Count 4.09 10^6/ul (4.00-5.40); Red Cell Distribution Width 13 % (10.5-15); White Blood Count 11.5 10^3/ul (3.5-10.8)
[2018-12-05 06:04] LABS: Albumin 3.3 g/dL (3.2-5.2); Albumin/Globulin Ratio 1.1 (1-3); BUN/Creatinine Ratio 27.5 (8-20); C Reactive Protein 53.38 mg/L (<8.01); Calcium 8.4 mg/dL (8.6-10.3); EGFR Non-African American 82.3 (>60); Globulin 2.9 g/dL (2-4); Total Bilirubin 0.4 mg/dL (0.2-1.0); Total Protein 6.2 g/dL (6.4-8.9)
--- NOTE | 2018-12-05 07:29 | PN ---
Subjective - Subjective Reason for Note: Progress Note History: Discharge summary I have reviewed her history with the patient, her and the electronic medical record. She had an episode of vomiting, confusion and dysphasia bringing her into the hospital. I note that an extensive work up has ruled out stroke and most likely seizure. She is feeling well and would like to go home. Telemetry shows a variety of pauses overnight including a 3.2 second pause. She has no other symptoms. 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 Essential (primary) hypertension (Chronic) I10 Hemianopia (Chronic) H53.47 History of CVA (cerebrovascular accident) (Chronic) Z86.73 History of hypertension (Chronic) Z86.79 Multiple cerebral infarctions (Chronic) I63.9 Osteoporosis (Chronic) M81.0 Current Medications: Current Medications Aspirin (Aspirin 81 Mg Chew Tab*) 81 mg PO DAILY [facility] Last Admin: 12/04/18 08:49 Dose: 81 mg Atorvastatin Calcium (Lipitor*) 20 mg PO BEDTIME [facility] Last Admin: 12/04/18 19:43 Dose: 20 mg Carvedilol (Coreg Tab*) 3.125 mg PO BID [facility] Last Admin: 12/04/18 19:49 Dose: 3.125 mg Clobetasol Propionate (Clobetasol 0.05% Oint*) 1 applic TOPICAL BID PRN PRN Reason: ITCHING Digoxin (Lanoxin Tab*) 0.125 mg PO BID [facility] Last Admin: 12/04/18 19:51 Dose: 0.125 mg Lamotrigine (Lamictal Tab(*)) 100 mg PO BID [facility] Last Admin: 12/04/18 19:52 Dose: 100 mg Levetiracetam (Keppra Tab*) 750 mg PO BID [facility] Last Admin: 12/04/18 19:52 Dose: 750 mg Lorazepam (Ativan Tab(*)) 0.5 mg PO ONCE PRN PRN Reason: ANXIETY Mupirocin (Bactroban 2 % Oint*) 1 applic TOPICAL DAILY PRN PRN Reason: RASH Rivaroxaban (Xarelto(*)) 15 mg PO DAILY [facility] Last Admin: 12/04/18 08:48 Dose: 15 mg Home Medications: Home Medications Medication Instructions Recorded Confirmed Type Digoxin TAB* [Lanoxin TAB*] 0.125 mg PO BID 11/14/17 12/01/18 History levETIRAcetam TAB* [Keppra TAB*] 750 mg PO BID tab 11/16/17 12/01/18 Rx Carvedilol TAB* [Coreg TAB*] 3.125 mg PO BID 03/10/18 12/01/18 History Clobetasol 0.05% OINT* 1 applic TOPICAL BID PRN 03/10/18 12/01/18 History Aspirin 81 mg CHEW TAB* [Aspirin 81 mg PO DAILY 12/01/18 12/01/18 History Low Dose TAB*] Atorvastatin* [Lipitor 20 MG*] 20 mg PO BEDTIME 12/01/18 12/01/18 History Mupirocin 2% CREAM* [Bactroban 2% 1 applic TOPICAL DAILY PRN 12/01/18 12/01/18 History CREAM*] Rivaroxaban TAB(*) [Xarelto 15 15 mg PO DAILY 12/01/18 12/01/18 History mg(*)] lamoTRIgine TAB(*) [LaMICtal 100 mg PO BID 12/01/18 12/01/18 History TAB(*)] Allergies: Allergies Allergy/AdvReac Type Severity Reaction Status Date / Time No Known Allergies Allergy Verified 02/12/17 08:03 Objective - Vital Signs Vital Signs: Vital Signs 12/04/18 12/04/18 12/04/18 08:00 08:09 08:48 Temperature 97.9 F Pulse Rate 84 84 Respiratory 17 20 Rate Blood Pressure 148/72 (mmHg) O2 Sat by Pulse 91 Oximetry 12/04/18 12/04/18 12/04/18 11:58 15:19 18:56 Temperature 97.4 F 97.3 F 97.9 F Pulse Rate 61 70 69 Respiratory 20 16 14 Rate Blood Pressure 109/51 119/57 128/59 (mmHg) O2 Sat by Pulse 98 94 95 Oximetry 12/04/18 12/04/18 12/04/18 19:51 20:00 23:30 Temperature 98.7 F Pulse Rate 75 80 Respiratory 14 20 Rate Blood Pressure 150/74 (mmHg) O2 Sat by Pulse 94 Oximetry 12/05/18 12/05/18 03:21 07:11 Temperature 98.1 F Pulse Rate 72 Respiratory 20 16 Rate Blood Pressure 148/78 (mmHg) O2 Sat by Pulse 96 Oximetry - Intake and Output Intake and Output: Intake & Output 12/02/18 12/03/18 12/04/18 12/05/18 11:59 11:59 11:59 11:59 Intake Total 765 826 1674 1340 Output Total 200 600 0 Balance 337 375 1677 1340 Weight 124 lb 14.4 oz 124 lb 14.4 oz Intake: IV Fluids 126 Keppra 106 NS 20 Oral 433 681 0544 1340 Output: Urine 200 600 0 Other: Estimated Void Medium # Bowel Movements 1 1 1 Estimated Stool Amount Medium Medium Medium # Voids 1 2 1 1 ADLs: Meal Record Start: 12/01/18 14: 10 Freq: DAILY@0900,1400,1800 Status: Active Protocol: Created 12/01/18 14:10 System (Rec: 12/01/18 14:10 System [email or web address]) Document 12/01/18 18:00 [id number] (Rec: 12/01/18 18:30 [id number] TELE-C10) Document 12/02/18 09:00 [id number] (Rec: 12/02/18 13:27 [id number] TELE-C05) Document 12/02/18 13:27 [id number] (Rec: 12/02/18 13:28 [id number] TELE-C05) Document 12/02/18 18:00 [id number] (Rec: 12/02/18 18:17 [id number] TELE-C07) Document 12/03/18 09:00 [id number] (Rec: 12/03/18 15:14 [id number] TELE-C11) Document 12/03/18 14:00 [id number] (Rec: 12/03/18 15:16 [id number] TELE-C11) Document 12/03/18 18:00 [id number] (Rec: 12/03/18 18:01 [id number] TELE-C01) Document 12/04/18 09:00 [id number] (Rec: 12/04/18 10:35 [id number] TELE-C03) Document 12/04/18 14:00 [id number] (Rec: 12/04/18 14:52 [id number] TELE-C03) Document 12/04/18 18:00 [id number] (Rec: 12/04/18 18:24 [id number] TELE-C03) Intake and Output Start: 12/01/18 10: 36 Freq: Status: Active Protocol: Created 12/01/18 10:36 System (Rec: 12/01/18 10:36 System [id number]) Intake and Output Start: 12/01/18 14: 10 Freq: DAILY@0600,1400,2200 Status: Active Protocol: Created 12/01/18 14:10 System (Rec: 12/01/18 14:10 System [email or web address]-C03) Document 12/01/18 21:56 [id number] (Rec: 12/01/18 21:57 [id number] TELE-C10) Document 12/02/18 05:33 [id number] (Rec: 12/02/18 05:33 [id number] TELE-C13) Document 12/02/18 14:00 [id number] (Rec: 12/02/18 14:51 [id number] TELE-C05) Document 12/02/18 21:38 [id number] (Rec: 12/02/18 21:38 [id number] TELE-M04) Document 12/03/18 02:01 [id number] (Rec: 12/03/18 02:01 [id number] TELE-M04) Document 12/03/18 14:00 [id number] (Rec: 12/03/18 15:16 [id number] TELE-C11) Document 12/03/18 21:39 [id number] (Rec: 12/03/18 21:40 [id number] TELE-C10) Document 12/04/18 06:00 [id number] (Rec: 12/04/18 06:56 [id number] TELE-C34) Document 12/04/18 06:45 [id number] (Rec: 12/04/18 07:31 [id number] TELE-C05) Document 12/04/18 07:05 [id number] (Rec: 12/04/18 07:30 [id number] TELE-C05) Document 12/04/18 14:00 [id number] (Rec: 12/04/18 14:52 [id number] TELE-C03) Document 12/04/18 21:37 [id number] (Rec: 12/04/18 21:39 [id number] TELE-C01) Document 12/05/18 06:11 (Rec: 12/05/18 06:11 TELE-C05) - Physical Exam General: No Cyanosis, No Anemia, No Jaundice, No Clubbing Eye Exam: bilateral: EOMI Lungs and Chest: Yes: Chest Expansion Full, Chest Expansion Symetrica, Percussion Note Resonant, Vessicular Breath Sounds. No: Crackles, Wheezes Heart Rate and Rhythm: Irregular JVP: Not Elevated Additional Cardiovascular: Yes: Normal Heart Sounds. No: Heart Murmur, Pedal Edema Abdominal Exam: Yes: Soft, Bowel Sounds Present. No: Distention, Abdominal Mass , Abdominal Tenderness Results - Results Lab Results: Laboratory Results - last 24 hr 12/05/18 12/05/18 12/05/18 05:30 05:30 05:30 WBC 11.5 H RBC 4.09 Hgb 12.5 Hct 38 MCV 92 MCH 31 MCHC 33 RDW 13 Plt Count 210 MPV 8.7 Neut % (Auto) 65.2 Lymph % (Auto) 19.1 Clinch % (Auto) 9.7 Eos % (Auto) 5.3 Baso % (Auto) 0.7 Absolute Neuts (auto) 7.5 Absolute Lymphs (auto) 2.2 Absolute Monos (auto) 1.1 H Absolute Eos (auto) 0.6 Absolute Basos (auto) 0.1 Absolute Nucleated RBC 0 Nucleated RBC % 0 Sodium 139 Potassium 4.0 Chloride 106 Carbon Dioxide 26 Anion Gap 7 BUN 19 Creatinine 0.69 Est GFR ( Amer) 99.6 Est GFR (Non-Af Amer) 82.3 BUN/Creatinine Ratio 27.5 H Glucose 111 H Lactic Acid 1.1 Calcium 8.4 L Total Bilirubin 0.40 AST 12 L ALT 10 Alkaline Phosphatase 81 C-Reactive Protein 53.38 H Total Protein 6.2 L Albumin 3.3 Globulin 2.9 Albumin/Globulin Ratio 1.1 EKG Report: Assessment - Problem List Assessment: Patient Problems Episode of altered consciousness (Acute) Vomiting (Acute) Alcoholism (Chronic) Anticoagulated (Chronic) Atrial fibrillation (Chronic) COPD (chronic obstructive pulmonary disease) (Chronic) 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 It appears this is unlikely to have been a seizure or a stroke. She has no residual findings. I note her CRP and WBC were a little raised, but her neutrophil percentage wasn't elevated, and her CRP is coming down. I don't think this was related to infection. I note she has had several sinus pauses on her EKG. At presentation her digoxin levels were subtherapeutic, she has been placed on bid digoxin since hospitalization (total 0.25 mg daily). It may be that she has some form of pause or that this is a digoxin effect. It is unlikely this was the cause of her presentation (I consulted with cardiology). I will reduce the dose of the digoxin. I think it is safe to discharge her home. 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
[2018-12-05 07:54] VITALS: BP 145/74
[2018-12-05] MEDS: Aspirin 81 mg CHEW TAB* 81 MG TAB.CHEW PO SCH (07:54)
[2018-12-05] MEDS: Rivaroxaban TAB(*) 15 MG PO SCH (07:54)
[2018-12-05] MEDS: levETIRAcetam TAB* 500 MG PO SCH (07:55)
[2018-12-05] MEDS: Carvedilol TAB* 3.125 MG PO SCH (07:55)
[2018-12-05] MEDS: lamoTRIgine TAB(*) 100 MG PO SCH (07:55)
[2018-12-05] MEDS: Digoxin TAB* 0.125 MG PO SCH (07:55)
--- NOTE | 2018-12-06 12:13 | DS ---
CC: Dr. Edgar Pandey.* DISCHARGE SUMMARY: DATE OF ADMISSION: 12/01/18 DATE OF DISCHARGE: 12/05/18 DISCHARGE DIAGNOSES: 1. Acute episode of altered mental status. 2. Vomiting. COMORBIDITIES: 1. Bradycardia. 2. History of CVA. 3. History of seizures. SECONDARY DIAGNOSES: 1. Chronic atrial fibrillation, anticoagulation. 2. Alcoholism. 3. Chronic obstructive pulmonary disease. 4. Dysphasia as a late effect of the cerebrovascular accident. 5. Hemianopsia secondary to previous cerebrovascular accident. 6. Essential hypertension. 7. Osteoporosis. HISTORY OF PRESENT ILLNESS: Abeba Patel is a 78-year-old right-handed white female. 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 Her presentation is documented in Dr. Tucker Mojica's admitting history and physical. In brief, she was healthy until 8 in the morning of admission. Her came in and noted that she was having problems with word finding and was repeating one word, also she was unable to organize her pill bottles. She then vomited x4. She went to the emergency room, by that time her word finding difficulties had improved. A code royer was called. CT scan showed evidence of an old infarct in the left occipital and parietal lobes. She had a CTA which showed occlusion of the right posterior cerebral artery. She had a neurology consult which felt that there was no evidence of an acute stroke. She had had a cough for approximately 2 weeks and she had not been fully compliant with her seizure medications. PHYSICAL EXAMINATION AT PRESENTATION: Temperature 97.5, heart rate between 63 and 108, respirations 17 to 39, blood pressure 170/104. Cardiovascular System: Her pulse was irregularly irregular. No murmurs, rubs, or gallops. Her lungs were clear. Abdomen: Soft and nontender. Nervous system: She had normal power. Had a resting tremor in left arm and slower [id number]. Cranial nerves II through XII are intact. She had intermittent word finding difficulty, slightly dysarthric speech. INITIAL INVESTIGATIONS: White count 14.3, hemoglobin 14.2, hematocrit 44, platelets 238. INR 1.09. Sodium 142, potassium 4.5, chloride 107, bicarbonate 27, BUN 20, creatinine 0.7, glucose 161. Lactic acid 2.4. Total bili 0.5, normal LFTs. Troponin I of 0.00. Lipids: Triglycerides 112, cholesterol 189, LDL 97, HDL 69.6. Chest x-ray: Cardiomegaly, mild interstitial prominence. CT of the brain: Old infarction, left occipital and parietal lobes. Probable calcified meningioma, left middle cerebral fossa. No hemorrhage or acute infarct. CTA: Occlusion, right posterior cerebral artery, atherosclerosis, mild narrowing of the left distal vertebral artery. INITIAL ASSESSMENT: The patient with history of atrial fibrillation, cerebrovascular accident, seizure disorder, presenting with vomiting, word- finding difficulty, confusion, and dysarthria. Differential diagnosis at presentation was stroke versus seizure versus infection. She was brought in for diagnosis and treatment. CONSULTATIONS: Dr. Edgar Pandey of neurology 12/01/18. His consultation is a part of the electronic medical record. In short, his impression was possible seizure, unlikely CVA, suggested anticonvulsant levels and IV Keppra. INVESTIGATIONS DURING HOSPITALIZATION: Her white count came down steadily from 14.3 to 11.5 on the day of discharge and her neutrophil percent went from 83.7% to 65.2%. CRP at presentation 8.96, on 12/04/18 was 89.2, and on day of discharge 53.38. Lactic acid level was 2.3 on 12/02/18 and 1.1 on the day of discharge. Her CMP is normal on the day of discharge aside from a glucose of 111, calcium of 8.4. Urinalysis at presentation 2+ blood, 1+ leukocyte esterase. However, urine culture grew nothing. Toxicology at presentation: Digoxin 0.6, lamotrigine 12.3, levetiracetam 23.3. Serum alcohol less than 10. IMAGIN12/02/18; brain MRI: Chronic ischemic change with old infarcts in left occipital lobe unchanged from previous exam, atrophy. 12/04/18, chest x- ray: Mild cardiogenic pulmonary edema, interstitial changes. HOSPITAL COURSE: Abeba Patel presented with an acute episode of altered mental status and vomiting. This improved clinically after admission. She had no further episodes aside from anxiety and some disorientation towards the end of the day. It is concerned that she might have an occult infection; however, her white count, neutrophil percent, and CRP came down during her hospital stay without any antibiotics. She was on telemetry during her hospital stay and last night in the hospital she had several pauses, the longest was 3.2 seconds. These were while she was sleeping and were asymptomatic. She went from atrial fibrillation with a normal rate to bradycardia. On the day of discharge, she ate breakfast normally. She was feeling well. She still had a slight residual cough which she had had for 2 weeks prior to admission. She denied any other acute symptoms. She was in no pain. She had no further problems of anorexia, nausea, vomiting and no problems with cognition. She has been able to walk at baseline. PHYSICAL EXAMINATION ON THE DAY OF DISCHARGE: Vital Signs: Temperature 98.3, heart rate 63, respirations 20, oxygen saturation on room air 94%, and blood pressure 145/74. No cyanosis, anemia, jaundice, clubbing, or lymphadenopathy. Cardiovascular System: Her pulses are irregularly irregular. Heart sounds are normal. No added sounds or murmurs. No pedal edema. Respiratory system: Chest expansion full and symmetrical. Percussion note resonant. Breath sounds are vesicular, no crackles or wheezes. Abdominal examination: No distention, masses, tenderness, or organomegaly. Nervous System: Cranial nerves II through XII intact. Speech subtle dysphasia. Arms and legs; full power, normal tone, and coordination. ASSESSMENT AND PLAN: 1. Acute episode of altered mental status and vomiting. The underlying cause of this remains unclear. It does interfere that she has had an acute stroke. Seizure disorder is a possibility, but not demonstrated. An EEG on 12/02/18 was abnormal and was compatible with a localized epileptiform focus in the left temporal lobe. It is possible she had a small complex partial seizure and other possibility that she may have had an episode of heart block and she has not had any other symptoms of syncope. It does not appear that she has had a stroke. We will follow up these possibilities as an outpatient and we have reinforced the importance of compliance with her antiepileptic medication. 2. History of stroke. She does not appear to have had a new stroke. However, she has her usual chronic sequelae which include a right homonymous hemianopsia , and some word finding difficulties, and slight incoordination on the left side. 3. Essential hypertension. Her blood pressure was reasonably controlled during the hospital stay. 4. Chronic atrial fibrillation. She is anticoagulated with Xarelto. Importance of compliance was discussed. 5. Chronic obstructive pulmonary disease. She has had a recent exacerbation, but otherwise does not require any antibacterials. 6. History of alcoholism. We counseled her once again to reduce or stop drinking alcohol. She has not in the past followed this advice, though I note from admission her alcohol level was 0. DISCHARGE MEDICATIONS: 1. Digoxin 0.125 mg twice daily. 2. Levetiracetam 750 mg twice daily. 3. Carvedilol 3.125 mg twice daily. 4. Mupirocin as needed. 5. Lamotrigine 100 mg twice daily. 6. Rivaroxaban (Xarelto) 15 mg daily. 7. Aspirin 81 mg daily. 8. Atorvastatin 20 mg daily. She has been set up with a transition of care visit at my office and she will also follow up with her usual neurologist who is Dr. Pandey. [id number]/[facility] #: [id number] AIN
== END 2018-12-05 10:28 | disposition home or self-care (01) | DRG 948 ==
LOC: ED 10:25 → MEDTELE 13:38 → OBSVTOIN 12-02 16:00
PROVIDERS: ADMIT Internal Medicine; ATTEND Internal Medicine
DX: R41.82 Altered mental status, unspecified (principal); J44.9 Chronic obstructive pulmonary disease, unspecified; I11.0 Hypertensive heart disease with heart failure; I50.9 Heart failure, unspecified; H53.47 Heteronymous bilateral field defects; R13.10 Dysphagia, unspecified; I48.2 Chronic atrial fibrillation; G40.909 Epilepsy, unspecified, not intractable, without status epilepticus; R00.1 Bradycardia, unspecified; I69.391 Dysphagia following cerebral infarction; M81.0 Age-related osteoporosis without current pathological fracture; Y90.0 Blood alcohol level of less than 20 mg/100 ml; R11.10 Vomiting, unspecified; F10.20 Alcohol dependence, uncomplicated; E78.5 Hyperlipidemia, unspecified; D32.0 Benign neoplasm of cerebral meninges; Z79.01 Long term (current) use of anticoagulants; Z91.14 Patient's other noncompliance with medication regimen; Z79.82 Long term (current) use of aspirin; Z79.899 Other long term (current) drug therapy; Z87.891 Personal history of nicotine dependence
CPT/HCPCS: 36415; 70450; 70496; 70498; 70551; 71045; 71046; 80048; 80053; 80061; 80162; 80175; 80177; 80320; 81003; 81015; 82140; 83605; 83735; 84100; 84484; 85025; 85610; 85730; 86140; 86850; 86900; 86901; 87086; 93005; 95819; 99284; A9270-GY; G0378; G0480; G8978-GP-CL; G8979-GP-CI; G8987-GO-CJ; G8988-GO-CI; Q9967

== ENCOUNTER 2019-06-08 12:17 | Inpatient (IN) | payer MEDICARE, OTHER ==
[2019-06-08] MEDS ORDERED: NS 0.9% 1000 ML** 1,000 ML IV ONE (12:31)
[2019-06-08] MEDS ORDERED: Diltiazem IV push/loading dose 5 MG/ML 5 ML vial (25 mg) IV PUSH ONE (12:31)
--- NOTE | 2019-06-08 12:31 | ED ---
Shortness of Breath - HPI Summary HPI Summary: This patient is a 79 year old F presenting to [facility] by EMS with a chief complaint of SOB since 06/07/19. Per EMS, Pt lives in [facility] with , and they noticed on 06/07/19 she was SOB which worsened over time and today she was extremely SOB and weak. Initially she was at high 80s low 90s on O2 sat. Pt has a fever of 103.5. Pt recently came back from [place] on 06/06/19. - History of Current Complaint Hx Obtained From: Patient Onset/Duration: Lasting Days, Still Present, Worse Since - 06/08/19 Timing: Constant Aggravating Factors: Nothing Associated Signs & Symptoms: Fever - Allergy/Home Medications Allergies/Adverse Reactions: Allergies Allergy/AdvReac Type Severity Reaction Status Date / Time No Known Allergies Allergy Verified 02/12/17 08:03 PMH/Surg Hx/FS Hx/Imm Hx Endocrine/Hematology History: Reports: Hx Anticoagulant Therapy - xarelto Denies: Hx Diabetes, Hx Anemia Cardiovascular History: Reports: Hx Atrial Fibrillation, Hx Coronary Artery Disease, Hx Hypertension, Other Cardiovascular Problems/Disorders - NEW ONSET A- FIB Denies: Hx Angina, Hx Congestive Heart Failure, Hx Hypercholesterolemia, Hx Myocardial Infarction, Hx Pacemaker/ICD, Hx Valvular Heart Disease Respiratory History: Reports: Hx Chronic Obstructive Pulmonary Disease (COPD), Other Respiratory Problems/Disorders - PRIOR SMOKER. QUIT 1994 Denies: Hx Asthma, Hx Chronic Bronchitis, Hx Pneumonia, Hx Sleep Apnea GI History: Denies: Hx Jaundice History: Reports: Other Problems/Disorders - HX HEMATURIA Denies: Hx Renal Disease Musculoskeletal History: Reports: Hx Orthopedic Injury - LEFT HUMERUS FRACTURE, Hx Osteoporosis, Other Musculoskeletal History - OSTEOPOROSIS Denies: Hx Arthritis Sensory History: Reports: Other Sensory Impairments Denies: Hx Cataracts - removed bilateraly, Hx Contacts or Glasses, Hx Eye Injury, Hx Hearing Aid Opthamlomology History: Reports: Other Sensory Impairments Denies: Hx Cataracts - removed bilateraly, Hx Contacts or Glasses, Hx Eye Injury Neurological History: Reports: Hx CVA, Hx Seizures, Hx Transient Ischemic Attacks (TIA), Other Neuro Impairments/Disorders - Cerebral infarction Denies: Hx Developmental Delay, Hx Headaches, Hx Migraine, Hx Nerve Disease, Hx Spinal Cord Injury Psychiatric History: Reports: Hx Substance Abuse - alcohol Denies: Hx Anxiety, Hx Depression, Hx Panic Disorder - Surgical History Surgery Procedure, Year, and Place: GROWTH ON UTERUS REMOVED/ FIBROID 1972 Hx Anesthesia Reactions: No - Immunization History Date of Tetanus Vaccine: Up to date Date of Influenza Vaccine: fall 2014 Infectious Disease History: Denies: Traveled Outside the [place] in Last 30 Days - Family History Known Family History: Positive: Other - CVA - Social History [facility]: [facility] Alcohol Use: Daily Alcohol Amount: x2/day Hx Substance Use: No Substance Use Type: Reports: None Hx Tobacco Use: Yes Smoking Status (MU): Former Smoker Type: Cigarettes, Pipe Amount Used/How Often: 1/2 PPD - QUIT IN 1995 Length of Time of Smoking/Using Tobacco: 55 years Have You Smoked in the Last Year: No Review of Systems Positive: Fever, Other - pos - weakness Positive: Shortness Of Breath All Other Systems Reviewed And Are Negative: Yes Physical Exam - Summary Physical Exam Summary: VITAL SIGNS: Reviewed. GENERAL: Patient is a well-developed and nourished elderly female who is lying comfortable in the stretcher. Patient is in acute respiratory distress, able to speak in full sentences. HEAD AND FACE: No signs of trauma. No ecchymosis, hematomas or skull depressions. No sinus tenderness. EYES: PERRLA, EOMI x 2, No injected conjunctiva, no nystagmus. EARS: Hearing grossly intact. Ear canals and tympanic membranes are within normal limits. MOUTH: Oropharynx within normal limits. NECK: Supple, trachea is midline, no adenopathy, no JVD, no carotid bruit, no c- spine tenderness, neck with full ROM. CHEST: Symmetric, no tenderness at palpation. Tachycardic, irregular rate and rhythm. LUNGS: Decreased breath sounds bilaterally. No wheezing or crackles. CVS: Regular rate and rhythm, S1 and S2 present, no murmurs or gallops appreciated. ABDOMEN: Soft, non-tender. No signs of distention. No rebound, no guarding, and no masses palpated. Bowel sounds are normal. EXTREMITIES: FROM in all major joints, no edema, no cyanosis or clubbing. NEURO: Alert and oriented x 3. No acute neurological deficits. Speech is normal and follows commands. SKIN: Dry and warm Triage Information Reviewed: Yes Vital Signs On Initial Exam: Initial Vital Signs Resp 17 06/08/19 12:25 Vital Signs Reviewed: Yes Diagnostics - Laboratory Result Diagrams: 06/08/19 12:38 06/08/19 16:45 Lab Statement: Any lab studies that have been ordered have been reviewed, and results considered in the medical decision making process. - Radiology CXR Radiology Interpretation Completed By: Radiologist Summary of Radiographic Findings: CXR reveals, per radiologist IMPRESSION: LIKELY MILD VASCULAR CONGESTION WITH CARDIOMEGALY. ED physician has reviewed this radiology report. - CT ABD/Pel CT CT Interpretation Completed By: Radiologist Summary of CT Findings: ABD/Pel CT reveals, per radiologist, IMPRESSION: Findings consistent with hepatic steatosis. No obstructive uropathy is noted. Nonobstructing calculi are noted in both kidneys. Myomatous uterus is noted. There is questionable gallstone in the gallbladder. ED physician has reviewed this radiology report. - EKG 1234 EKG Rhythm: Atrial Fibrillation Summary of EKG Findings: An EKG at 1234 reveals atrial fibrillation 123 bpm with Q-waves in V1 and V2. - Additional Comments Diagnostic Additional Comments: Transthoracic EKG reveals, per radiologist Findings: Left ventricle: The cavity size is normal. Systolic function is moderately reduced. The estimated ejection fraction is 35-40%. There is global hypokinesis. Left ventricular diastolic function parameters are indeterminate. Right ventricle: The cavity size is mildly dilated. The moderator band is in a normal position. Systolic function is moderately reduced. Pulmonary artery systolic pressure is not able to be accurately estimated. Ventricular septum: There is septal flattening of the interventricular septum consistent with RV volume or pressure overload. Left atrium: The atrium is severely dilated. Right atrium: The atrium is mildly dilated. Mitral valve: The annulus is mildly calcified. The leaflets are mildly thickened. There is mild to moderate regurgitation. Aortic valve: The valve is trileaflet. The leaflets are mildly thickened. Thickening, consistent with sclerosis. There is no evidence of stenosis. There is mild regurgitation. Tricuspid valve: The leaflets are normal thickness. There is mild-moderate regurgitation. Pulmonic valve: The leaflets are normal thickness. There is no evidence of stenosis. There is trace to mild regurgitation. Aorta: Aortic root: The aortic root is appears normal. Ascending aorta: The ascending aorta is mildly dilated. Aortic arch: The aortic arch is poorly visualized and appears normal. Pericardium: A prominent pericardial fat pad is present. There is no significant pericardial effusion. Pulmonary arteries: Poorly visualized. The main pulmonary artery is normal-sized. ED physician has reviewed this radiology report. Course/Dx - Course Assessment/Plan: This patient is a 58 year old F presenting to [facility] accompanied by roommate with a chief complaint of syncope occurring last night . Pt reports she was walking onto the back porch, when she slipped and fell. Her right foot is in pain. Pt reports LOC with bladder, and bowel incontinence. The LOC was "long enough for things to dry" according to pt. Pt reports pain in lower back, and roommate reports pt has had many past episodes of LOC. Pt reports previous incident when she broke C3 vertebrae in neck, trying to move an armoire. Past medical history significant for pulmonary edema , myocardial ischemia, COPD, burning over note, alcoholism, UTIs, atrial fibrillation on his route, CVA, seizure disorders, hypertension, CHF, hypoxia, and mitral valve regurgitation. Blood work without any significant abnormality except for WBCs of 22.3, INR is 3.31, PTT of 50.3, sodium 133, chloride is 94, carbon dioxide is 19, anion gap is 20, BUN MS 29 creatinine 1.7. Glucose is 129 , lactic acid 3.2, total bili is 1.2, AST is 4265, AST is 2904, alkaline phosphatase is 189, CK-MB 7.8, troponin 1.12, CRP of 55, BNP is more than 1300, ambulates is 267 and lipase 35. Initially in the ED course the patient was positive for sepsis criteria therefore we started with fluids at 50 ccs per KG and I gave the patient Rocephin since the patient was complaining of productive cough and she had a fever. The patients BNP is elevated therefore I gave the patient Lasix and also Cardizem for the itching fibrillation with RVR. The patient is LFT are significant elevated and that this time that he received is not clear. I discussed the case with Dr. Irby from the ICU services and she recommends for the patient to get a echocardiogram, right upper quadrant ultrasound, and abdominopelvic CT. Dr. Irby will follow-up on the test results of the U/S, abdominopelvic CT and echocardiogram. She accepted the patient to the icu services. - Diagnoses Provider Diagnoses: CHF (congestive heart failure), Troponin level elevated, Acute renal failure, LFTs abnormal, Elevated lactic acid level - Physician Notifications Discussed Care of Patient With: Luz Irby Time Discussed With Above Provider: 14:14 Instructed by Provider To: Other - Discussed patient's case with Dr. Irby, who agrees to admit patient. Discharge - Sign-Out/Discharge Documenting (check all that apply): Patient Departure - Admit All imaging exams completed and their final reports reviewed: Yes Patient Received Moderate/Deep Sedation with Procedure: No - Discharge Plan Condition: Good Disposition: ADMITTED TO [facility] - Billing Disposition and Condition Condition: GOOD Disposition: Admitted to [facility] - Attestation Statements Document Initiated by Fernanda: Yes Documenting Scribe: Leisa Spicer Provider For Whom Fernanda is Documenting (Include Credential): Dr. Stef Rodríguez MD Scribe Attestation: Leisa Ramirez scribed for Dr. Stef Rodríguez MD on 06/08/19 at 1844. Scribe Documentation Reviewed: Yes Provider Attestation: The documentation as recorded by the leonardibe, Leisa Spicer accurately reflects the service I personally performed and the decisions made by , Dr. Stef Rodríguez MD Status of Scribe Document: Viewed
--- OUTSIDE RECORDS SUMMARY | 2019-06-08 12:34 | XMS REPORT | Continuity of Care Document ---
:1940 External Reference #:[id number] Author Name Ciarra Parker Care Team Providers Name Role Phone Jigar Biswas MD Primary Care Physician Unavailable Payers Date Identification Numbers Payment Provider Subscriber Policy Number: [id number] Medicare Abeba Patel PayID: [id number] [address] [place] [address] Policy Number: [id number] [employer] Abeba Patel Group Number: [id number] [address] PayID: [id number] [place] [address] Problems Active Problems Provider Date Localization-related epilepsy Edgar Pandey M.D. Onset: 01/18/2015 Carpal tunnel syndrome of left wrist Vick Goldberg MD Onset: 02/08/2017 Other displaced fracture of upper end of Vick Goldberg MD Onset: 2016 left humerus, subsequent encounter for fracture with routine healing Chronic atrial fibrillation Reema Santana M.D. Onset: 01/21/2018 Mitral valve disorder Reema Santana M.D. Onset: 01/21/2018 Tricuspid valve disorder, non-rheumatic Reema Santana M.D. Onset: 01/21/2018 Cardiomyopathy Reema Santana M.D. Onset: 01/21/2018 Aortic valve disorder Reema Santana M.D. Onset: 03/28/2018 Chronic diastolic heart failure Reema Santana M.D. Onset: 03/28/2018 Social History Type Date Description Comments Sex Unknown Marital Status Lives With Occupation Retired Hand Dominance Right-handed ETOH Use Occasionally consumes 2 to 3 glasses of alcohol wine a day Tobacco Use Start: Unknown Patient is a former Quit Cigarettes 1971, End: Unknown smoker quit pipe in 1996 Recreational Drug Use Denies Drug Use Smoking Status Reviewed: 05/09/19 Patient is a former Quit Cigarettes 1971, smoker quit pipe in 1996 Exercise Type/Frequency Does not exercise Allergies, Adverse Reactions, Alerts Description No Known Drug Allergies Medications Active Medications SIG Qnty Indications Ordering Provider Date Coreg 1 by mouth 90tabs I42.8 Martha Sahni, 03/02/2018 3.125mg Tablets twice daily N.P. Levetiracetam 1 by mouth 60tabs Edgar Pandey, 12/16/2017 750mg Tablets twice a day M.D. Xarelto 1 by mouth Unknown 15mg Tablets every day Digoxin 2 by mouth Unknown 125mcg Tablets every day Lamictal 1 po qam and 2 90tabs Edgar Pandey, 100mg Tablets qhs M.D. Aspirin 1 by mouth Unknown 81mg Chewtabs every day Lipitor one tab by Unknown 20mg Tablets mouth every PM History Medications Percocet 1 tab by mouth 30tabs S42.292A Vick Cruz 11/18/2016 - 5-325mg every 4-6 hours MD Yusuf 11/21/2017 Tablets Percocet 1 tab by mouth 30tabs S42.292A Vick Cruz 11/11/2016 - 5-325mg every 4-6 hours MD Yusuf 11/21/2017 Tablets Digox 2 by mouth every 30tabs Edgar Scott 01/17/2015 - 125mcg Tablets day Alphonso Pandey 12/30/2014 Mupirocin apply affected Unknown - 2% Ointment areas once daily 10/03/2018 as Needed Clobetasol Propionate applied to Unknown - affected area 10/03/2018 0.05% Cream 1-2 times daily as Needed Lisinopril take 1 tablet by Unknown - 5mg Tablets mouth once daily 01/21/2018 Metoprolol Succinate take 1 tablet by Unknown - ER mouth three 03/02/2018 25mg Tablets ER 24HR times a day Cartia XT Unknown - 180mg Caps ER 11/29/2017 24HR Levetiracetam 1 1/2 by mouth 60tabs Chhaya Mcdermott MD - 500mg twice a day 12/16/2017 Tablets Potassium Chloride 1 by mouth every Unknown - [place] ER day 12/30/2014 20Meq Tablets ER Triamcinolone apply to Unknown - Acetonide affected area 06/21/2017 0.5% Ointment twice daily as needed Diltiazem HCL ER 1 by mouth every Unknown - 360mg day 11/29/2017 Caps ER 24HR Furosemide 1 by mouth every Unknown - 20mg Tablets morning 12/30/2014 Lamotrigine 1 tab po bid Unknown - 100mg 12/30/2014 Tablets Vital Signs Date Vital Result Comment 05/09/2019 4:11pm Height 61 inches 5'1" Weight 114.00 lb Heart Rate 86 /min BP Systolic 132 mmHg BP Diastolic 82 mmHg BMI (Body Mass Index) 21.5 kg/m2 04/04/2019 10:26am Height 61 inches 5'1" Weight 170.00 lb Heart Rate 98 /min BP Systolic 128 mmHg BP Diastolic 88 mmHg BMI (Body Mass Index) 32.1 kg/m2 11/11/2018 1:34pm Height 61 inches 5'1" Weight [...] Date Facility Test Result H/L Range Note Laboratory test 04/03/2019 [facility] TSH 4.12 mcIU/mL N 0.34- 5.60 1, [address] ([place] [address] Stim Horm) [phone] Vitamin B12 337 pg/mL N 180-914 3 Vitamin B1 (Whole Blood) 159 nmol/L 70-180 4 Methylmalonic Acid Mma 0.28 nmol/mL <=0.40 5 Laboratory test 11/21/2018 [facility] Vitamin B12 460 pg/mL N 180-[address] [place] [address] [phone] TSH (Thyroid Stim Horm) 3.02 mcIU/mL N 0.34-5.60 Methylmalonic Acid Mma 0.35 nmol/mL <=0.40 7 Vitamin B1 (Whole Blood) 158 nmol/L 70-180 8 Comp Metabolic Panel 11/21/2018 [facility] Sodium 140 mmol/L N 135-[address] [place] [address] [phone] Potassium 4.7 mmol/L N 3.5-5.0 Chloride 105 mmol/L N 101-111 Co2 Carbon Dioxide 27 mmol/L N 22-32 Anion Gap 8 mmol/L N 2-11 Glucose 105 mg/dL High 70-100 Blood Urea Nitrogen 14 mg/dL N 6-24 Creatinine 0.65 mg/dL N 0.51-0.95 BUN/Creatinine Ratio 21.5 High 8-20 Calcium 9.4 mg/dL N 8.6-10.3 Total Protein 6.8 g/dL N 6.4-8.9 Albumin 4.3 g/dL N 3.2-5.2 Globulin 2.5 g/dL N 2-4 Albumin/Globulin Ratio 1.7 N 1-3 Total Bilirubin 0.60 mg/dL N 0.2-1.0 Alkaline Phosphatase 108 U/L High 34-104 Alt 14 U/L N 7-52 Ast 17 U/L N 13-39 Egfr Non- 88.2 >60 Egfr 106.7 >60 10 Lipid Profile 11/21/2018 [facility] Triglycerides 103 mg/dL 11 (Trig/Chol/HDL) [address] [place] [address] [phone] Cholesterol 185 mg/dL 12 HDL Cholesterol 71.6 mg/dL 13 LDL Cholesterol 93 mg/dL 14 Laboratory test 11/21/2018 [facility] Creatine 44 U/L N 10- [address] Kinase(CK) [place] [address] [phone] Lipid Panel - JFM 11/11/2018 [facility] Creatine <pending> [address] Kinase(CK) [place] [address] [phone] Comp Metabolic 07/10/2016 [facility] Sodium 137 N 133-[address] mmol/[place] [address] [phone] Potassium 3.8 mmol/L N 3.5-5.0 Chloride 103 [...] 69.7 N >60 Egfr 89.7 N >60 15 CBC Auto 07/10/2016 [facility] White Blood 12.4 10^3/uL High 3.5-10.[address] [place] [address] [phone] Red Blood Count 4.46 10^6/uL N 4.0-5.4 [...] Red Blood Cells % 0 N 1 [id number] Normal Range 180 to 914 Indeterminate Range 145 to 180 Deficient Range <145 4 ADDITIONAL INFORMATION This test was developed and its performance characteristics determined by [facility] in a manner consistent with CLIA requirements. This test has not been cleared or approved by the U.S. Food and Drug Administration. Test Performed by: [facility] - [address] [address] 5 ADDITIONAL INFORMATION This test was developed and its performance characteristics determined by [facility] in a manner consistent with CLIA requirements. This test has not been cleared or approved by the U.S. Food and Drug Administration. Test Performed by: [facility] - [address] [address] 6 Normal Range 180 to 914 Indeterminate Range 145 to 180 Deficient Range <145 7 ADDITIONAL INFORMATION This test was developed and its performance characteristics determined by [facility] in a manner consistent with CLIA requirements. This test has not been cleared or approved by the U.S. Food and Drug Administration. Test Performed by: [facility] - [address] [address] 8 ADDITIONAL INFORMATION This test was developed and its performance characteristics determined by [facility] in a manner consistent with CLIA requirements. This test has not been cleared or approved by the U.S. Food and Drug Administration. Test Performed by: [facility] - [address] [address] 9 Pt currently admitted at [facility]. 10 Because ethnic data is not always readily [...] 15-29 5 Kidney failure <15 (or dialysis) 11 Desirable: <150 Borderline High: 150-199 High: 200-499 Very High: >500 12 Desirable: <200 Borderline High: 200-239 High: >239 13 Low: <40 Desirable: 40-60 High: >60 14 Desirable: <100 Near Optimal: 100-129 Borderline High: 130-159 High: 160-189 Very High: >189 15 Because ethnic data is not always readily [...] (or dialysis) Procedures Date Code Description Status 12/01/2018 87828 EEG Recording Awake & Asleep Completed 11/11/2018 64333 EKG Tracing & Interpretation Completed 09/13/2018 19463 ECHO Transthoracic, Real-Time 2D With Doppler And Color Completed Flow 09/13/2018 23514 ECHO Transthoracic, Real-Time 2D With Doppler And Color Completed Flow 03/10/2018 58984 Holter Monitor Review (24 hr)dr review & interp only Completed 03/08/2018 69832 ECG Monitor/Recording W/Visual Superimposition Scanning Completed 03/02/2018 97030 EKG Tracing & Interpretation Completed 02/25/2018 32377 ECHO Transthoracic, Real-Time 2D With Doppler And Color Completed Flow 02/25/2018 70543 ECHO Transthoracic, Real-Time 2D With Doppler And Color Completed Flow 01/21/2018 20907 EKG Tracing & Interpretation Completed 11/25/2017 45432 Treadmill Interp/Report Only Completed 11/25/2017 25864 Stress Test Supervsn W/Out I/R Completed 11/24/2017 52194 EKG, Interpretation Only Completed 11/23/2017 90694 EKG, Interpretation Only Completed 11/23/2017 68916 ECHO Transthorasic Realtime 2D W Doppler & Color Flow Hosp Completed 11/23/2017 27182 ECHO Transthorasic Realtime 2D W Doppler & Color Flow Hosp Completed 11/15/2017 57839 EEG Recording Awake & Drowsy Completed 02/12/2017 57296 Carpal Tunnel Release Completed 02/12/2017 92723 Carpal Tunnel Release Completed 11/18/2016 85951 Closed trtmt prox humeral fx Completed 07/16/2016 87443 EEG Recording Awake & Drowsy Completed 08/27/2015 51329 Electroencephalogram EEG Extended Monitoring Over 1 Hour Completed 08/27/2015 67878 ECHO Transthorasic Realtime 2D W Doppler & Color Flow Hosp Completed 08/08/2013 38754 ECHO Transthoracic, Real-Time 2D With Doppler And Color Completed Flow 07/25/2013 40595 EEG Recording Awake & Drowsy Completed 07/21/2013 34224 ECHO Transthorasic Realtime 2D W Doppler & Color Flow Hosp Completed Encounters Type Date Location Provider Dx Diagnosis Office Visit 04/04/2019 [facility] Edgar Scott G40.209 Local-rel symptc 10:15a Services Of Coreen Pandey M.D. epi w cmplx prt seiz,not ntrct,w/o stat epi G44.309 Post-traumatic headache, unspecified, not intractable S09.90xA Unspecified injury of head, initial encounter Office Visit 12/04/2018 [facility] Renata G40.209 Local-rel 7:00a Rosa Olivera M.D. symptc epi w cmplx prt seiz,not ntrct,w/o stat epi I69.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 R41.0 Disorientation, unspecified Office Visit 12/03/2018 [facility] Renata G40.209 Local-rel 7:00a Rosa Olivera M.D. symptc epi w cmplx prt seiz,not ntrct,w/o stat epi I69.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 Z91.14 Patient's other noncompliance with medication regimen Office Visit 12/01/2018 [facility] Edgar Scott G40.209 Local-rel 7:00a [facility] prt seiz,not ntrct,w/o stat epi I69.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 Z91.14 Patient's other noncompliance with medication regimen Office Visit 12/01/2018 10:07a [facility] Tucker Mojica, G40.909 Epilepsy , unsp, Assoc,yen MCDANIELS not intractable, Hospitalists without status epilepticus R47.1 Dysarthria and anarthria R41.0 Disorientation, unspecified I48.91 Unspecified atrial fibrillation Office Visit 11/11/2018 2:00p [facility] Reema Santana I48.2 Chronic atrial Of [facility] Alphonso fibrillation I34.0 Nonrheumatic mitral (valve) insufficiency E78.5 Hyperlipidemia, unspecified Z86.73 Prsnl hx of TIA (TIA), and cereb infrc w/o resid deficits Office Visit 10/04/2018 10:45a [facility] Edgar Scott G40.209 Local- rel Services Of Core[facility]. 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 [facility]pi w cmplx prt seiz,not ntrct,w/o stat epi I69.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 Z79.01 intermediate (current) use of anticoagulants Z72.89 Other problems related to lifestyle Office Visit 03/28/2018 12:45p [facility] Reema Santana I48.2 Chronic atrial Of Coreen Werner fibrillation I34.0 Nonrheumatic mitral (valve) insufficiency I35.0 Nonrheumatic aortic (valve) stenosis R05 Cough I50.32 Chronic diastolic (congestive) heart failure Office Visit 03/11/2018 [facility] Chai Hugo M25.00 Hemarthrosis, 11:21a Assoc,yen WELLS M.D. unspecified joint Hospitalists R41.0 Disorientation, unspecified I48.2 Chronic atrial fibrillation Z86.73 Prsnl hx of TIA (TIA), and cereb infrc w/o resid deficits Office Visit 03/02/2018 [facility] Martha Scott I42.8 Other cardiomyopathies 12:00p Cardiology Of Genaro Sahni [facility] I48.2 Chronic atrial fibrillation I34.0 Nonrheumatic mitral (valve) insufficiency I36.1 Nonrheumatic tricuspid (valve) insufficiency Office Visit 01/21/2018 11:20a [facility] Reema Santana I48.2 Chronic atrial Of [facility] MDominic fibrillation I42.8 Other cardiomyopathies I34.0 Nonrheumatic mitral (valve) insufficiency I36.1 Nonrheumatic tricuspid (valve) insufficiency R21 Rash and other nonspecific skin eruption Office Visit 12/21/2017 1:45p [facility] Edgar Scott G40.209 Local- rel Services Of Coreen Pandey M.D. [facility] epi w cmplx prt seiz,not ntrct,w/o stat epi I69.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 Z91.19 Patient's noncompliance w oth medical treatment and regimen R45.4 Irritability and anger Office Visit 11/30/2017 1:15p [facility] Ronal Scott G40.209 Local- rel [facility] w cmplx prt seiz,not ntrct,w/o stat epi I69.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 R45.4 Irritability and anger Z91.19 Patient's noncompliance w oth medical treatment and regimen Office Visit 11/25/2017 Italo Covarrubias I42.9 Cardiomyopathy, 1:46p Cardiology Alphonso Robins unspecified I48.91 Unspecified atrial fibrillation Office Visit 11/24/2017 2:42p [facility] Reema Santana I50.9 Heart failure, Of [facility] Al[place] unspecified I48.2 Chronic atrial fibrillation Office Visit 11/23/2017 1:43p [facility] Brendon Chu J96.01 Acute respiratory Alexia Bates failure with hypoxia J81.0 Acute pulmonary edema [...] 11/14/2017 9:59a [facility]ens[facility] Belle Tijerina, R56.9 Unspecified MD convulsions I48.91 Unspecified atrial fibrillation 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 l humer, subs for fx w routn heal G56.02 Carpal tunnel syndrome, left upper limb Office Visit 11/16/2016 Orthopedic Services Of Ortho Clinical 3:00p C.M.A. Office Visit 11/16/2016 [facility] Edgar Regalado.39 Other sequelae 1:30p Clinic Alphonso Pandey 8 [...] Neurologic Alphonso Pandey of cerebral Services Of Marketing Operations Assistant infarction G40.109 Local-rel symptc epi w simp prt seiz,not ntrct, w/o stat epi Office Visit 07/17/2016 [facility] Kevin I63.9 Cerebral 3:10p Clinic MD Albaro infarction, unspecified Office Visit 07/16/2016 [facility] Kevin I63.9 Cerebral 3:07p Clinic MD Albaro infarction, unspecified I10 Essential (primary) hypertension I48.91 Unspecified atrial fibrillation Office Visit 07/15/2016 [facility] Kevin I63.9 Cerebral 3:06p Clinic MD Albaro infarction, unspecified I10 Essential (primary) hypertension I48.91 Unspecified atrial fibrillation Office Visit 05/12/2016 [facility] Edgar Scott G40.109 Local-rel symptc 11:45a Services Of Coreen Pandey M.D. epi w simp prt seiz,not ntrct, w/o stat epi Office Visit 08/29/2015 [facility] Edgar Scott G40.109 Local-rel symptc 10:44a Rosa Pandey M.D. epi w simp prt seiz,not ntrct, w/o stat epi Office Visit 08/28/2015 [facility] Edgar Scott G40.109 Local-rel symptc 2:06p Rosa Pandey M.D. epi w simp prt seiz,not ntrct, w/o stat epi Office Visit 08/28/2015 [facility] Kevin 518.81 Respiratory 12:35p Assoc, Hospitalists Arleth Walker M.D. 780.39 Convulsions Other 288.60 Leukocytosis, Unspecified 276.1 Hyposmolality & Or Hyponatremia Office Visit 08/27/2015 [facility] Edgar Scott G40.109 Local-rel 2:05p Rosa Pandey M.D. symptc epi w simp prt seiz,not ntrct, w/o stat epi R94.01 Abnormal electroencephalogram [EEG] Office Visit 08/27/2015 12:34p [facility] David Caryn, 780.39 Convulsions Other Assoc,pc D.O. Hospitalists 518.81 Respiratory Failure Acute 288.60 Leukocytosis, Unspecified 276.1 Hyposmolality & Or Hyponatremia Office Visit 04/24/2015 9:45a [facility] Edgar Scott 434.11 Cerebral Services Of Coreen Pandey M.D. 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 Embolism W/ Cerebral Infarc Office Visit 07/20/2013 10:48a [facility] Isabel Chu 434.91 Occlusion Services Of Coreen Cottrell M.D. Cerebral Artery Unspec W/ Cerebral Infarc Plan of Treatment Future Appointment(s):11/08/2019 10:45 am - Edgar Pandey M.D. at [facility] Of [facility]05/12/2019 11:30 am - Martha Sahni N.PChasidy at [facility]05/09/2019 - Edgar Pandey M.D.G40.209 Localization- related (focal) (partial) symptomatic epilepsyFollow up:6 txbfewW15.0 Disorientation, unspecified
--- OUTSIDE RECORDS SUMMARY | 2019-06-08 12:34 | XMS REPORT | Continuity of Care Document ---
:1940 External Reference #:[id number] Author Name Jeff Leidy Care Team Providers Name Role Phone Jigar Biswas MD Primary Care Physician Unavailable Payers Date Identification Numbers Payment Provider Subscriber Policy Number: [id number] Medicare Abeba Patel PayID: [id number] [address] [place] [address] Policy Number: [id number] [employer] Abeba Patel Group Number: [id number] [address] PayID: [id number] [place] [address] Effective: 2019 Policy Number: [id number] [facility] Abeba Patel PayID: [id number] [address] [place] [address] Problems Active Problems Provider Date Localization-related epilepsy [...] Use Denies Drug Use Smoking Status Reviewed: 05/12/19 Patient is a former Quit Cigarettes 1971, smoker quit pipe in 1996 Exercise Type/Frequency Does not exercise Allergies, Adverse Reactions, Alerts Active Allergies Reaction Severity Comments Date Lisinopril Rash 05/12/2019 Inactive Allergies NKDA 01/18/2015 Medications Active Medications SIG Qnty Indications Ordering [...] by Unknown 20mg Tablets mouth every PM Vitamin B-6 Daily Unknown 50mg Tablets History Medications Percocet 1 tab by mouth [...] Tablets Vital Signs Date Vital Result Comment 05/12/2019 11:22am Height 61 inches 5'1" Weight 113.00 lb w/o shoes Heart Rate 80 /min irreg BP Systolic Sitting 128 mmHg Rue reg cuff BP Diastolic Sitting 62 mmHg Rue reg cuff BP Systolic Standing 126 mmHg Rue re cuff BP Diastolic Standing 66 mmHg Rue re cuff BMI (Body Mass Index) 21.3 kg/m2 Ejection Fraction irreg 09/13/18 echo 05/09/2019 4:11pm Height 61 inches 5'1" Weight [...] Result H/L Range Note Laboratory test 04/03/2019 [facility] TSH 4.12 mcIU/mL N 0.34- 5.60 1, [address] ([place] [address] Stim Horm) [phone] Vitamin B12 337 pg/mL N 180-278 3 Vitamin B1 (Whole Blood) 159 nmol/L 70-180 4 Methylmalonic Acid Mma 0.28 nmol/mL <=0.40 5 Laboratory test 11/21/2018 [facility] Vitamin B12 460 pg/mL N 180-914 [address] [place] [address] [phone] TSH (Thyroid Stim Horm) 3.02 mcIU/mL N 0.34-5.60 Methylmalonic Acid Mma 0.35 nmol/mL <=0.40 7 Vitamin B1 (Whole Blood) 158 nmol/L 70-180 8 Comp Metabolic Panel 11/21/2018 [facility] Sodium 140 mmol/L N 135-[address] [place] [address] [phone] Potassium 4.7 mmol/L N 3.5-5.0 Chloride 105 [...] Egfr 106.7 >60 10 Lipid Profile 11/21/2018 [facility] Triglycerides 103 mg/dL 11 (Trig/Chol/HDL) [address] [place] [address] [phone] Cholesterol 185 mg/dL 12 HDL Cholesterol 71.6 mg/dL 13 LDL Cholesterol 93 mg/dL 14 Laboratory test 11/21/2018 [facility] Creatine 44 U/L N 10- [address] Kinase(CK) [place] [address] [phone] Lipid Panel - JFM 11/11/2018 [facility] Creatine <pending> [address] Kinase(CK) [place] [address] [phone] Comp Metabolic 07/10/2016 [facility] Sodium 137 N 133-[address] mmol/[place] [address] [phone] Potassium 3.8 mmol/L N 3.5-5.0 Chloride 103 [...] 89.7 N >60 15 CBC Auto 07/10/2016 [facility] White Blood 12.4 10^3/uL High 3.5-10.[address] Count [place], [place] [id number] [phone] Red Blood Count 4.46 10^6/uL N 4.0-5.4 [...] Red Blood Cells % 0 N 1 [id number] Normal Range 180 to 914 Indeterminate Range 145 to 180 Deficient Range <145 4 ADDITIONAL INFORMATION This test was developed and its performance characteristics determined by [facility] in a manner consistent with CLIA requirements. This test has not been cleared or approved by the U.S. Food and Drug Administration. Test Performed by: [facility] - [address] [address] 5 ADDITIONAL INFORMATION This test was developed and its performance characteristics determined by [facility] in a manner consistent with CLIA requirements. This test has not been cleared or approved by the U.S. Food and Drug Administration. Test Performed by: [facility] - [address] [address] 6 Normal Range 180 to 914 Indeterminate Range 145 to 180 Deficient Range <145 7 ADDITIONAL INFORMATION This test was developed and its performance characteristics determined by [facility] in a manner consistent with CLIA requirements. This test has not been cleared or approved by the U.S. Food and Drug Administration. Test Performed by: [facility] - [address] [address] 8 ADDITIONAL INFORMATION This test was developed and its performance characteristics determined by [facility] in a manner consistent with CLIA requirements. This test has not been cleared or approved by the U.S. Food and Drug Administration. Test Performed by: [facility] - [address] [address] 9 Pt currently admitted at [facility]. 10 Because ethnic [...] dialysis) Procedures Date Code Description Status 12/01/2018 98980 EEG Recording Awake & Asleep Completed 11/11/2018 47851 EKG Tracing & Interpretation Completed 09/13/2018 19485 ECHO Transthoracic, Real-Time 2D With Doppler And Color Completed Flow 09/13/2018 47826 ECHO Transthoracic, Real-Time 2D With Doppler And Color Completed Flow 03/10/2018 51445 Holter Monitor Review (24 hr)dr review & interp only Completed 03/08/2018 99466 ECG Monitor/Recording W/Visual Superimposition Scanning Completed 03/02/2018 25614 EKG Tracing & Interpretation Completed 02/25/2018 54729 ECHO Transthoracic, Real-Time 2D With Doppler And Color Completed Flow 02/25/2018 39760 ECHO Transthoracic, Real-Time 2D With Doppler And Color Completed Flow 01/21/2018 57239 EKG Tracing & Interpretation Completed 11/25/2017 71865 Treadmill Interp/Report Only Completed 11/25/2017 16730 Stress Test Supervsn W/Out I/R Completed 11/24/2017 10546 EKG, Interpretation Only Completed 11/23/2017 19115 EKG, Interpretation Only Completed 11/23/2017 61717 ECHO Transthorasic Realtime 2D W Doppler & Color Flow Hosp Completed 11/23/2017 91065 ECHO Transthorasic Realtime 2D W Doppler & Color Flow Hosp Completed 11/15/2017 11442 EEG Recording Awake & Drowsy Completed 02/12/2017 95487 Carpal Tunnel Release Completed 02/12/2017 37226 Carpal Tunnel Release Completed 11/18/2016 58397 Closed trtmt prox humeral fx Completed 07/16/2016 25049 EEG Recording Awake & Drowsy Completed 08/27/2015 54288 Electroencephalogram EEG Extended Monitoring Over 1 Hour Completed 08/27/2015 19532 ECHO Transthorasic Realtime 2D W Doppler & Color Flow Hosp Completed 08/08/2013 54177 ECHO Transthoracic, Real-Time 2D With Doppler And Color Completed Flow 07/25/2013 00151 EEG Recording Awake & Drowsy Completed 07/21/2013 93931 ECHO Transthorasic Realtime 2D W Doppler & Color Flow Hosp Completed Encounters Type Date Location Provider Dx Diagnosis Office Visit 04/04/2019 [place] Ronal Scott G40.209 Local-[facility] symp 10:15a Services Of Coreen Pandey M.D. epi w cmplx prt seiz,not ntrct,w/o stat epi G44.309 Post-traumatic headache, unspecified, not intractable S09.90xA Unspecified injury of head, initial encounter Office Visit 12/04/2018 [facility] G40.209 Local-rel 7:00a Clinic Alphonso Olivera symptc epi w cmplx prt seiz,not ntrct,w/o stat epi I69.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 R41.0 Disorientation, unspecified Office Visit 12/03/2018 [facility] Renata G40.209 Local-rel 7:00a Clinic Alphonso Olivera symptc epi w cmplx prt seiz,not ntrct,w/o stat epi I69.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 Z91.14 Patient's other noncompliance with medication regimen Office Visit 12/01/2018 [facility] Edgar Scott G40.209 Local-rel 7:00a [facility] Alphonso Pandey symptc epi w cmplx prt seiz,not ntrct,w/o stat epi I69.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 Z91.14 Patient's other noncompliance with medication regimen Office Visit 12/01/2018 10:07a [facility] Tucker Mojica, G40.909 Epilepsy , unsp, Assoc,pc MD not intractable, Hospitalists without status epilepticus R47.1 Dysarthria and anarthria R41.0 Disorientation, unspecified I48.91 Unspecified atrial fibrillation Office Visit 11/11/2018 2:00p [facility] Reema Santana, I48.2 Chronic atrial Of Coreen Werner fibrillation I34.0 Nonrheumatic mitral (valve) insufficiency E78.5 Hyperlipidemia, unspecified Z86.73 Prsnl hx of TIA (TIA), and cereb infrc w/o resid deficits Office Visit 10/04/2018 10:45a [place] [facility] Edgar Scott G40.209 Local- rel Services Of Alphonso Hawkins epi w cmplx prt seiz,not ntrct,w/o stat epi I48.2 Chronic atrial fibrillation R41.3 Other amnesia Z79.01 assisted (current) use of anticoagulants Office Visit 04/13/2018 10:30a [place] Ronal Scott G40.209 Local- rel Services 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 fibrillation I34.0 Nonrheumatic mitral (valve) insufficiency I35.0 Nonrheumatic aortic (valve) stenosis R05 Cough I50.32 Chronic diastolic (congestive) heart failure [facility].00 Hemarthrosis, 11:21a yen Queen II, M.D. unspecified joint Hospitalists R41.0 Disorientation, unspecified I48.2 Chronic atrial fibrillation Z86.73 Prsnl hx of TIA (TIA), and cereb infrc w/o resid deficits Office Visit 03/02/2018 [place] Martha Scott I42.8 Other cardiomyopathies 12:00p Cardiology Of Genaro Sahni [facility] I48.2 Chronic atrial fibrillation I34.0 Nonrheumatic mitral (valve) insufficiency I36.1 Nonrheumatic tricuspid (valve) insufficiency Office Visit 01/21/2018 11:20a [facility] Reema Santana I48.2 Chronic atrial Of [facility] AT [facility] M.D. fibrillation I42.8 Other cardiomyopathies I34.0 Nonrheumatic mitral (valve) insufficiency I36.1 Nonrheumatic tricuspid (valve) insufficiency R21 Rash and other nonspecific skin eruption Office Visit 12/21/2017 1:45p [place] Ronal Scott G40.209 Local- rel Services Of Coreen Pandey M.D. [facility] epi w cmplx prt seiz,not ntrct,w/o stat epi I69.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 Z91.19 Patient's noncompliance w oth medical treatment and regimen R45.4 Irritability and anger Office Visit 11/30/2017 1:15p [place] Ronal Scott G40.209 Local- rel Services Of [facility].D. 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 R45.4 Irritability and anger Z91.19 Patient's noncompliance w oth medical treatment and regimen Office Visit 11/25/2017 [place] Lit CruzChasidy I42.9 Cardiomyopathy, 1:46p Cardiology Alphonso Robins unspecified I48.91 Unspecified atrial fibrillation Office Visit 11/24/2017 2:42p [facility] Reema Santana I50.9 Heart failure, Of Coreen Werner unspecified I48.2 Chronic atrial fibrillation Office [...] weakness following cerebral infarction Office Visit 11/13/2017 [facility] G40.909 Epilepsy, unsp, 10:19a 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 l humer, subs for fx w zander pompa G56.02 Carpal tunnel syndrome, left upper limb Office Visit 11/16/2016 [facility] 3:00p C.M.A. Office Visit 11/16/2016 [facility] Edgar Scott I69.39 Other sequelae 1:30p Clinic Alphonso Pandey 8 of cerebral infarction G40.109 Local-rel symptc epi w simp prt seiz,not ntrct, w/o stat epi Office Visit 11/11/2016 2:20p Orthopedic Vick Anthony S42.292A Oth disp fx of Services Of MD Yusuf upper end of C.M.A. 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 epi w simp prt seiz,not ntrct, w/o stat epi Office Visit 08/29/2015 [facility] Edgar Scott G40.109 Local-rel symptc 10:44a Clinic Alphonso Pandey epi w simp prt seiz,not ntrct, w/o stat epi Office Visit 08/28/2015 [facility] Edgar Scott G40.109 Local-rel symptc 2:06p Clinic Alphonso Pandey epi w simp prt seiz,not ntrct, w/o stat epi Office Visit 08/28/2015 [facility] Kevin 518.81 Respiratory 12:35p Assoc, Hospitalists Landsberg, Failure Acute M.DChasidy 780.39 Convulsions Other 288.60 Leukocytosis, Unspecified 276.1 Hyposmolality & Or Hyponatremia Office Visit 08/27/2015 [facility] Edgar Scott G40.109 Local-rel 2:05p Clinic Alphonso Pandey symptc epi w simp prt seiz,not ntrct, w/o stat epi R94.01 Abnormal electroencephalogram [EEG] Office Visit 08/27/2015 12:34p [facility] aDvid Rubin, 780.39 Convulsions Other Assoc, D.O. Hospitalists 518.81 Respiratory Failure Acute 288.60 Leukocytosis, Unspecified 276.1 Hyposmolality & Or Hyponatremia Office Visit 04/24/2015 9:45a [place] [facility] Edgar Scott 434.11 Cerebral Services Of [...] Cerebral Transient Unspec Office Visit 08/16/2013 11:00a [place] Ronal Scott 434.11 Cerebral Services Of Coreen Pandey M.D. Embolism W/ Cerebral Infarc Office Visit 07/20/2013 10:48a [place] [facility] Isabel Chu 434.91 Occlusion Services Of Coreen Cottrell M.D. Cerebral Artery Unspec W/ Cerebral Infarc Plan of Treatment Future Appointment(s):05/29/2019 8:00 am - Nurse Visit IC at [facility]11/10/2019 1:10 pm - Reema Santana M.D. at [facility]2018 11:00 am - Martha Sahni N.Eren. at [facility]05/26/2019 11: 00 am - Traveling ECHO 2 at [facility]05/26/2019 11:30 am - Nurse Visit IC at [facility]11/08/2019 10:45 am - Edgar Pandey M.D. 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
[2019-06-08] MEDS ORDERED: Acetaminophen TAB* 325 MG PO ONE (12:43)
[2019-06-08] MEDS ORDERED: cefTRIAXone(*) 1 GM in NS 0.9% 50 ML* 50 ML IVPB ONE (12:55)
[2019-06-08] MEDS ORDERED: NS 0.9% IV ONE (13:00)
[2019-06-08 13:05] LABS: Hematocrit 39 % (35-47); Hemoglobin 12.7 g/dL (12.0-16.0); Mean Corpuscular HGB Conc 32 g/dL (31-36); Mean Corpuscular Hemoglobin 28 pg (27-31); Mean Corpuscular Volume 87 fL (80-97); Mean Platelet Volume 8.2 fL (7.4-10.4); Platelet Count 197 10^3/uL (150-450); Red Blood Count 4.52 10^6 /uL (3.70-4.87); Red Cell Distribution Width 15 % (10-15); White Blood Count 22.3 10^3/uL (3.5-10.8)
[2019-06-08 13:08] LABS: ABS Lymphocytes 1.2 10^3/ul (1.0-4.8); ABS Monocytes 0.5 10^3/ul (0-0.8); ABS Neutrophils 20.6 10^3/ul (1.5-7.7); Lymphocyte % 5.2 %; Nucleated Red Blood Cells % 0.1
[2019-06-08 13:16] LABS: Activated Partial Thrombo Time 50.3 seconds (26.0-38.0); INR 3.31 (0.82-1.09)
[2019-06-08 13:26] LABS: Albumin 3.9 g/dL (3.2-5.2); BUN/Creatinine Ratio 17.1 (8-20); C Reactive Protein 55.99 mg/L (<8.01); Calcium 9.1 mg/dL (8.6-10.3); EGFR African American 35.1 (>60); Globulin 3.9 g/dL (2-4); Potassium 4.7 mmol/L (3.5-5.0); Total Bilirubin 1.2 mg/dL (0.2-1.0); Total Protein 7.8 g/dL (6.4-8.9)
[2019-06-08 13:31] LABS: CKMB ng/mL 7.8 ng/mL (0.6-6.3)
[2019-06-08 13:34] LABS: Troponin I 1.12 ng/mL (<0.04)
[2019-06-08] MEDS ORDERED: Aspirin 81 mg CHEW TAB* 81 MG TAB.CHEW PO ONE (13:41)
[2019-06-08] MEDS ORDERED: Furosemide IV* 10 MG/ML 2 ML VIAL (20 MG) IV ONE (13:50)
--- NOTE | 2019-06-08 14:42 | HP ---
History of Present Illness - History of Present Illness Reason for Visit: shortness of breath History of Present Illness: 79 yo F with PMH wich includes CHF, HTN, seizures, CVA, Afib, bradycaria, COPD and alcoholism. She presented to the ED on 06/08 with 2 days of shortness of breath which is worsening, weakness and fever. Per patient she has just returned from [place] on 06/06/2019. On arrival to ED sats noted to be low 80s, improving after placed on face mask. On evaluation in the ED she was noted to be febrile to 103.5, HR 146, BP 158/ 106. Physical exam negative for abdominal pain. She was noted to be in acute respiratory distress but speaking in full sendencs. HR tachycardic and irregular. Lung sounds reduced bilaterally. Labs concerning for WBC 22.3, INR 3.31, Creatinine 1.70, lactic acid 8.2, AST 4265, ALT 2904, Troponin 1.12, BNP > 1300. CT abdomen shows fatty infiltration of liver. Admitted to ICU for further workup and care. On arrival patient appears comfortable. She is alert but confused, unable to provide much information. Her has just left but will be back shortly. - Past Medical History Cardiac: AFIB - on Xarelto, CAD, CHF, HTN, NM, Other - bradycardia, mitral valve regurgitation Pulmonary: Bronchitis, COPD, Other - pulmonary edema SPECIAL OFFICER: CVA - with dysphagia, right homonymous hemianopia, Seizure Psych: Addictions - alcohol Musculoskeletal: Other - osteoporosis, humerus fracture ENT: Other - dysphagia due to CVA Renal/: Hematuria, Other - hyponatremia Endocrine: Other - hyperglycemia - Past Surgical History Past Surgical History: Other - fibroid resection - Past Family History Family History: CVA - Past Social History Smoke: Quit - 1994 - ~27.5 pack year history Alcohol: Heavy - 2x daily Drugs: None Lives: Usp Review of Systems - Review of Systems Constitutional: Positive: Fever Respiratory: Positive: Shortness of Breath Gastrointestinal: Negative: Abdominal Pain Neurological: Positive: Numbness - parasthesias in both hands - Medications/Allergies Allergies/Adverse Reactions: Allergies Allergy/AdvReac Type Severity Reaction Status Date / Time No Known Allergies Allergy Verified 02/12/17 08:03 Exam - Exam Vital Signs: Vital Signs (72 hours) 06/08/19 06/08/19 06/08/19 12:25 12:26 12:37 Temperature 100.8 F Pulse Rate 158 132 Respiratory 17 42 40 Rate Blood Pressure 158/106 158/106 (mmHg) O2 Sat by Pulse 97 96 Oximetry 06/08/19 06/08/19 06/08/19 12:40 13:00 13:02 Temperature 104.6 F Pulse Rate 142 Respiratory 23 36 Rate Blood Pressure 125/102 (mmHg) O2 Sat by Pulse 100 Oximetry 06/08/19 06/08/19 06/08/19 14:00 14:02 14:26 Temperature 101.7 F Pulse Rate 115 114 Respiratory 27 38 Rate Blood Pressure 105/70 (mmHg) O2 Sat by Pulse 97 97 Oximetry General: Alert, Other - confused HEENT: Atraumatic, EOMI Lungs: Clear to auscultation, Normal air movement Cardiovascular: Regular rate, Normal S1, Normal S2 Abdomen: Soft, No tenderness Extremities: No edema, Normal pulses, Other - warm, dry Skin: No significant lesion Neurological: Normal speech, Normal tone Psych/Mental Status: Mood NL Assessment/Plan - Assessment/Plan Assessment: 79 yo F with PMH including CAD, CHF, Afib presents to the ED on 06/08 with fevers and shortness of breath. Found to have acute liver injury with AST 4000s and ALT 2000s, acute kidney injury. Plan: Cardiovascular: (1) Afib with RVR; (2) Chronic atrial fibrillation; (3) Acute on chronic CHF; (4) NSTEMI; (5) Chronic essential HTN; (6) hx of bradycardia; (7 ) CAD with hx of prior NM; (8) hx of mitral valve regurgitation -- HR 106-158 -- SBP 105-158 -- Telemetry -- EKG, 06/08: Afib with RVR -- TTE, 06/08: LVEF 35-40% with global hypokinesis, previously normal right ventricle dilated with reduced systolic function, previously normal. unable to assess pulmonary artery pressure septal flattening consistent with RV volume or pressure overload left atrium severely dilated right atrium mildly dilated. mild to mod mitral valve regurgitation mild aortic regurgitation tricuspid with mild to moderate regurgitation mild distention of ascending aortia -- Cardiac markers CK 211 MB 7.8 Trop 1.12, follow trend BNP >1300, follow trend -- Lipid panel ordered -- check digoxin level -- resume home Carvediolol -- resume home Atorvastatin -- cardiology consulted; Home meds: Digoxin, Carvedilol, Xarelto, ASA, Atorvastatin Pulmonary: (1) Acute hypoxic respriatory failure; (2) COPD; (3) hx of pulmonary edema; (4) hx of bronchitis -- RR 17-42 -- sats 96-100 on 15Lpm face mask -- CXR: mild vascular congestion with cardiomegaly -- ABG: pH 7.34; pCO2 26; pO2 155; HCO3 17.1; BE -10.1; %O2 Sat 100. on 15LPM Home meds: None Gastrointestinal: (1) Acute hepatitis; (2) Elevated amylase -- US liver ordered -- CT abdomen, 06/08: hepatic steatosis. Nonobstructing renal calculi. Possible gallstone -- LFTs Tbili 1.20, follow trend ALK 189, follow trend AST 4265, follow trend ALT 2904, follow trend -- Pancreatic enzymes Amylase 267, follow trend Lipase 35 -- Acetaminophen level 19, follow trend -- salicylate level <2.50 -- hepatitis panel ordered -- diet: NPO -- bowel regimen: None -- ulcer prophylaxis: Not indicated at this time Home meds: None Endocrine: (1) Hyperglycemia -- monitor BGs -- start sliding scale insulin if BGs > 180 -- thryroid function tests Home meds: None Renal: (1) Acute kidney injury; (2) Hyponatremia; () hx of hematuria -- UOP: strict ins and outs -- Cr 1.70 -- Lytes Na 133, on NS replacement, follow trend K 4.7 Ca 9.1 Mag ordered Phos ordered -- IVF: NS @ 100 ml/hr Home meds: None Infectious disease: (1) Sepsis -- Tmax 104.6 -- WBC 22.3 -- CRP 55.99, elevated -- Micro 06/08 blood in process UA ordered sputum ordered -- ABX Rocephin Azithromycin Home meds: None Neurologic: (1) Alcoholism; (2) hx of seizure disorder; (3) 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 -- resume home Lamictal and Keppra Home meds: Lamictal, Keppra Hematological: (1) Coagulopathy; (2) on Xarelto -- Hgb 12.7 -- Plt 197 -- Coags INR 3.31 PTT 50.3 -- DVT prophylaxis: SQ Heparin Home meds: Xarelto, ASA Metabolic: (1) Lactic acidosis -- Lactic acid 8.2, hydrate, follow trend Home meds: None Deep vein thrombosis prophylaxis: SQ Heparin Dietary: not indicated at this time Condition: serious Prognosis: guarded Code status: full Disposition: admitted to ICU Family updated at bedside regarding interval events and plan of care Cumulative time spent in the care of this patient (excluding any procedure time) : at least 95 minutes. Patient care included clinical interview (with patient and/or family), bedside exam of the patient, review of labs, x-rays, and other ancillary data, coordination of (respiratory, nursing care, review of patient's records, discussion regarding patients management with involved consultants, primary physician, pharmacists, and other healthcare personnel (dietary, case management , physical/occupational therapy etc.)
[2019-06-08 15:21] LABS: Acetaminophen 19 mcg/mL; Salicylate < 2.50 mg/dL (<30)
[2019-06-08 15:50] LABS: Hepatitis B Surface Antigen Negative (Negative)
[2019-06-08 16:08] LABS: Hepatitis C Antibody Negative (Negative)
--- NOTE | 2019-06-08 17:16 | ECHO ---
*[facility]* [place] [address] Fax #: [phone] Transthoracic Echocardiogram Patient: Abeba Patel : 1940 Study Date: 06/08/2019 Age: 79 Gender: F HR: 108 bpm Height: 68 in /172.7 cm BSA: 1.6 m^2 Weight: 112.8 lb /51.3 kg BMI: 17.2 kg/m^2 *Software Applications Developer: * Abril Tyson [facility] *Referring Physician: * Stef Rodríguez *Reading Physician: * Timothy Fong MD Indications: Congestive Heart Failure. History: Atrial fibrillation. Coronary artery disease. Chronic obstructive pulmonary disease. Risk factors: Former tobacco use. Hypertension. ETOH use. Conclusions Summary: 1. Left ventricle: The cavity size is normal. Systolic function is moderately reduced. The estimated ejection fraction is 35-40%. There is global hypokinesis. 2. Right ventricle: The cavity size is mildly dilated. Systolic function is moderately reduced. Pulmonary artery systolic pressure is not able to be accurately estimated. 3. Ventricular septum: There is septal flattening of the interventricular septum consistent with RV volume or pressure overload. 4. Left atrium: The atrium is severely dilated. 5. Right atrium: The atrium is mildly dilated. 6. Mitral valve: There is mild to moderate regurgitation. 7. Aortic valve: There is mild regurgitation. 8. Tricuspid valve: There is mild-moderate regurgitation. 9. Ascending aorta: The ascending aorta is mildly dilated. 10. Since the prior echocardiogram completed 05/26/19, pertinent changes are prior normal right and left ventricular size and function reported. Study data: Transthoracic echocardiogram. Procedure: Transthoracic echocardiography was performed. Image quality was good. Complete 2D, spectral Doppler, and color flow Doppler. Location: Emergency department. Patient status: Inpatient. Patient room number: ED-4. Rhythm: Atrial fibrillation. Findings Left ventricle: The cavity size is normal. Systolic function is moderately reduced. The estimated ejection fraction is 35-40%. There is global hypokinesis. Left ventricular diastolic function parameters are indeterminate. Right ventricle: The cavity size is mildly dilated. The moderator band is in a normal position. Systolic function is moderately reduced. Pulmonary artery systolic pressure is not able to be accurately estimated. Ventricular septum: There is septal flattening of the interventricular septum consistent with RV volume or pressure overload. Left atrium: The atrium is severely dilated. Right atrium: The atrium is mildly dilated. Mitral valve: The annulus is mildly calcified. The leaflets are mildly thickened. There is mild to moderate regurgitation. Aortic valve: The valve is trileaflet. The leaflets are mildly thickened. Thickening, consistent with sclerosis. There is no evidence of stenosis. There is mild regurgitation. Tricuspid valve: The leaflets are normal thickness. There is mild-moderate regurgitation. Pulmonic valve: The leaflets are normal thickness. There is no evidence of stenosis. There is trace to mild regurgitation. Aorta: Aortic root: The aortic root is appears normal. Ascending aorta: The ascending aorta is mildly dilated. Aortic arch: The aortic arch is poorly visualized and appears normal. Pericardium: A prominent pericardial fat pad is present. There is no significant pericardial effusion. Pulmonary arteries: Poorly visualized. The main pulmonary artery is normal-sized. Systemic veins: Inferior vena cava: The vessel is normal in size. The respirophasic diameter changes are blunted (< 50%). Measurements Left ventricle Value Ref Right atrium continued Value Ref ASHOK, LAX 3.9 cm 3.8 - 5.2 SI dim, ES, A4C (H) 5.4 cm 3.4 - 5.3 ESD, LAX 3.3 cm 2.2 - 3.5 Estimated RAP 8 mm Hg --------- FS, LAX (L) 14 % 27 - 45 PW, ED, LAX 0.9 cm 0.6 - 0.9 Aortic valve Value Ref FS (L) 14 % 27 - 45 Faye diam, ED 1.9 cm --------- PW, ED 0.9 cm 0.6 - 0.9 Peak v, S 1.49 m/sec --------- E', lat faye, TDI (L) 9.6 cm/sec >=10.0 VTI, S 19.4 cm -- ------- E/e', lat faye, 7 Mean grad, S 4.0 mm Hg ----- ---- TDI Peak grad, S 9.0 mm Hg --------- E', med faye, TDI (L) 6.5 cm/sec >=7.0 LVOT/AV, VTI ratio 0.62 -- ------- E/e', med faye, 11 JAYDEN, VTI 1.94 cm^2 ----- ---- TDI JAYDEN, Vmax 1.78 cm^2 --------- E', avg, TDI 8.1 cm/sec AR peak v 3.63 m/sec ----- ---- E/e', avg, TDI 9 <=14 AR PHT 584 ms -- ------- AR peak grad 53 mm Hg --------- LVOT Value Ref Diam, S 2.00 cm Mitral valve Value Ref Area 3.1 cm^2 Peak E 0.69 m/sec --------- Peak harjinder, S 0.84 m/sec Peak A 0.02 m/sec --------- VTI, S 12.0 cm Decel time 179 ms --------- Mean grad, S 1 mm Hg Peak E/A ratio 46.1 --------- SV 38 ml SV/bsa 24 ml/m^2 Pulmonic valve Value Ref Peak v, S 0.57 m/sec --------- Ventricular septum Value Ref Peak grad, S 1.0 mm Hg --------- IVS, ED (H) 1.0 cm 0.6 - 0.9 Aortic root Value Ref Right ventricle Value Ref Root diam 3.0 cm <3.8 ASHOK, LAX 3.7 cm ASHOK minor ax, A4C (H) 4.2 cm 1.9 - 3.5 Ascending aorta Value Ref mid AAo AP diam, S 3.5 cm --------- Pressure, S 29 mm Hg Aortic arch Value Ref Left atrium Value Ref Arch diam 1.9 cm --------- AP dim, ES 3.50 cm 2.70 - 3.80 Pulmonary artery Value Ref ML dim, A4C 4.7 cm Pressure, S 28.0 mm Hg --------- SI dim, A4C 6.3 cm Vol/bsa, ES, 1-p (H) 50 ml/m^2 11 - 40 Inferior vena cava Value Ref A4C Diam 2.1 cm --------- Vol/bsa, ES, A/L (H) 49 ml/m^2 16 - 34 Right atrium Value Ref SI dim, ES (H) 5.4 cm 3.4 - 5.3 ML dim, ES, A4C 4.2 cm 2.6 - 4.4 Legend: (L) and (H) henry values outside specified reference range. Prepared and electronically signed by Timothy Fong MD 06/08/2019 17:16
[2019-06-08 17:46] LABS: Albumin 3.3 g/dL (3.2-5.2); Albumin/Globulin Ratio 1.1 (1-3); Alkaline Phosphatase 148 U/L (34-104); Anion Gap 15 mmol/L (2-11); BUN/Creatinine Ratio 14.9 (8-20); Blood Urea Nitrogen 30 mg/dL (6-24); CO2 Carbon Dioxide 19 mmol/L (22-32); Calcium 8.1 mg/dL (8.6-10.3); Chloride 100 mmol/L (101-111); Cholesterol 116 mg/dL; EGFR African American 28.7 (>60); EGFR Non-African American 23.8 (>60); Glucose 113 mg/dL (70-100); HDL Cholesterol 33.2 mg/dL; LDL Cholesterol 72 mg/dL; Phosphorus 5.6 mg/dL (2.5-5.0); Potassium 4.6 mmol/L (3.5-5.0); Sodium 134 mmol/L (135-145); Total Protein 6.3 g/dL (6.4-8.9); Triglycerides 56 mg/dL
[2019-06-08 18:19] LABS: Digoxin 0.5 ng/ml (0.8-2.0)
[2019-06-08 18:35] LABS: LDH > 11000 U/L (140-271)
[2019-06-08] MEDS ORDERED: ACETYLCYSTEINE IV ONE ×2 (19:00→20:00)
[2019-06-08] MEDS ORDERED: D5W IV ONE ×2 (19:00→20:00)
[2019-06-08] MEDS ORDERED: Calcium Gluconate INJ* 1 GM in NS 0.9% 50 ML* 50 ML IVPB ONE (19:30)
--- NOTE | 2019-06-08 19:37 | CONS ---
CARDIOLOGY CONSULTATION: DATE OF CONSULT: 06/08/19 REFERRING PHYSICIAN: Dr. Luz Irby. cc Dr. Reema Santana. Reason for cardiology consultation: elevated troponin. HISTORY OF PRESENT ILLNESS: I was asked to see this patient with a history of congestive heart failure, hypertension, seizure, CVA, AFib, bradycardia, COPD, and alcoholism, who apparently had shortness of breath for at least a few days after returning recently from [place]. The patient is not able to provide meaningful history now as she appears confused, but does clearly deny chest pain. PAST MEDICAL HISTORY: Includes AFib on Xarelto; CAD with further details unknown. The patient did have a normal cardiac chemical nuclear stress test with no evidence for infarct or ischemia with normal left ventricular ejection fraction at that time. The patient is also reported to have a history of congestive heart failure; hypertension; TN; COPD; bronchitis; seizures, CVA; alcohol addiction; osteoporosis. ALLERGIES TO MEDICATIONS: None. FAMILY HISTORY: Reportedly positive for stroke. SOCIAL HISTORY: She quit smoking cigarettes in 1994 after having smoked for 27- 1/2- pack years. She apparently abuses alcohol. She does not use drugs. REVIEW OF SYSTEMS: Unable to obtain due to the patient's mental status and she is not able to provide meaningful answers despite my questioning her. PHYSICAL EXAM: Height 5 feet 8 inches, weight 116 pounds, pulse is 106, blood pressure 116/73, O2 saturation 98%. On general exam, she is a frail, elderly lady, who does not appear to be oriented and is in mild respiratory distress. HEENT shows the cranium is normocephalic and atraumatic. She has dry mucosal membranes. Neck veins are distended, JVP 9 cm. There are no carotid bruits. Visible skin warm and perfused. Affect, she appears confused. Lungs reveal rales at the bases. Cardiac Exam: S1, S2. Irregular rate. Soft holosystolic murmur heard without radiation. There is no rub no gallop. PMI is nondisplaced. Abdomen: Soft and nondistended, appears benign. Extremities with 1+ peripheral edema and pulses appear grossly intact. DIAGNOSTIC STUDIES/LAB DATA: A 12-lead EKG reviewed on 06/08/19 at 12:34 shows atrial fibrillation at 123 beats per minute with anteroseptal ST-T wave changes. When compared to prior EKG completed 12/03/18, anterior ST-T wave changes appear more prominent, difficult to exclude a recent anterior wall TN based on this EKG. White blood cell count 22.3, hematocrit 39, platelet count 197. INR of 3.31. Sodium 134, potassium 4.6, chloride 100, bicarbonate 19, BUN 30, creatinine 2.02 and had been 1.70 on admission and this is new. Renal insufficiency as her creatinine had been normal at 0.63 on 04/21/19, lactate 8.2. Troponin 1.12 followed by 2.10. LDH greater than 11,000. AST 4265, ALT 2904, alk phos 189. CRP 55.99. BNP greater than 1300. Amylase 267. Transthoracic echocardiogram completed today (please see also that report) on shows moderately depressed left ventricular ejection fraction of 35% to 40% with global hypokinesis, mildly dilated right ventricular size with moderately depressed right ventricular function, severe left atrial dilatation, mild-to- moderate mitral regurgitation, mild aortic insufficiency, mild-to- moderate tricuspid regurgitation, and mildly dilated ascending aorta. When compared to prior echocardiogram completed 05/26/19, pertinent changes are prior normal right and left ventricular size and function reported. IMPRESSION: Ms. Patel is a 79-year-old woman with history of atrial fibrillation; reported coronary artery disease, although further details are not known; stroke; seizures; alcoholism; chronic obstructive pulmonary disease, now admitted with multisystem organ failure including new cardiomyopathy, liver failure, renal insufficiency, and mental status changes. I do not feel she is having an acute coronary syndrome, although it is difficult to completely exclude a recent anterior wall myocardial infarction. RECOMMENDATIONS: 1. Recommend ruling out PE given biventricular failure on echocardiogram. 2. Continue aspirin, beta-jacqueline. We would hold statin given her severe liver insufficiency at this time. Recommend heparin gtt until troponin peaks unless felt contraindicated. 3. Repeat EKG in the morning, given the patient's likely recent anterior wall TN. 4. Plan for ischemic evaluation once more stable. 5. Other management as per the critical care medicine service, Dr. Irby, with whom the case was discussed. 6. The patient may continue to follow up with her usual associate professor of psychology, Dr. Santana, post discharge. Dear Dr. Irby, many thanks for this kind cardiac consultation opportunity. Please do not hesitate to contact me if you have any questions or concerns regarding the patient's cardiovascular consultative care. [id number]/CPS #: [id number] IAN
[2019-06-08 19:38] LABS: ALT 2904 U/L (7-52); AST 4265 U/L (13-39)
--- NOTE | 2019-06-08 19:54 | PN ---
Progress Note - Progress Note Date of Service: 06/08/19 - update Note: Spoke with Cardiology who reviewed patient and TTE - based on TTE concern for recent anterior wall FL in the past few days. Also noted right heart strain concerning for PE given recent transatlantic flight. Recommending workup for PE. Given patient's creatinine of 2.0 will attempt to arrange VQ scan Spoke with GI regarding patient, recommended starting Acetadote protocol. Orders placed. Also recommended transfer to a facility with a liver transplant team given her elevated INR and increased confusion concerning for acute liver failure. Spoke with [facility], they are full and have an extended waitlist and as such cannot accommodate transfer however they reviewed case with me and agreed with current management, namely supportive care, mucomyst and also recommended starting Lactulose as ammonia level has come back now and is >200. Spoke with [facility], they do not have a liver transplant service but suggested [facility] center reaching out to them now. I also spoke with the patient's via phone, he had left with the intention of returning tonight but now is too tired to drive. I have updated him on interval test results and our concerns that Ms. Patel is extremely sick and could get much worse. We discussed her acute liver failure, acute renal failure, likely recent FL, congestive heart failure and concern for PE. We discussed that we are attempting to support her and that we are looking into transfer to a liver center. He is in agreement with transfer if it is possible. We also discussed code status; he stated that on prior occasions she has always requested to be a FULL code. He would like to continue that status. Orders placed.
[2019-06-08] MEDS ORDERED: Lactated Ringers 1000 ML Bag* 1,000 ML IV SCH (20:00)
[2019-06-08] MEDS ORDERED: Dextrose 50% Syringe 50 ML* 25 GM/50 ML SYRINGE IV PUSH PRN (20:37)
[2019-06-08] MEDS: NS 0.9% 1000 ML** 1,000 ML IV SCH (20:57)
[2019-06-08] MEDS ORDERED: Atorvastatin* 20 MG TAB PO SCH (21:00)
[2019-06-08] MEDS ORDERED: Ondansetron INJ* 2 MG/ML VIAL IV PRN (21:05)
[2019-06-08] MEDS ORDERED: Ondansetron INJ* 2 MG/ML VIAL ONE (21:08)
[2019-06-08] MEDS ORDERED: hydrALAZINE IV* 20 MG/ML VIAL IV SLOW PU PRN (21:08)
--- NOTE | 2019-06-08 21:10 | PN ---
Progress Note - Progress Note Date of Service: 06/08/19 - update Note: Spoke with Dr. Vasques at [facility]. He has provisionally accepted the patient to the wait list as there are no beds open currently. Notified patient
[2019-06-08] MEDS: Carvedilol TAB* 3.125 MG PO SCH (21:43)
[2019-06-08 22:08] LABS: Urine Appearance Turbid; Urine Bacteria Absent (Absent); Urine Bilirubin Negative (Negative); Urine Blood 1+ (Negative); Urine Color Amber; Urine Glucose 1+(50 mg/dL) (Negative); Urine Ketones Trace (Negative); Urine Nitrite Negative (Negative); Urine Protein 2+(100 mg/dL) (Negative); Urine Red Blood Cell 3+(>10/hpf) (Absent); Urine Specific Gravity 1.012 (1.010-1.030); Urine Squamous Epithelial Cell Present (Absent); Urine Transitional Epithelial Present (Absent); Urine Urobilinogen Negative (Negative); Urine White Blood Cell 3+(>20/hpf) (Absent)
[2019-06-08 23:51] LABS: Hematocrit 37 % (35-47); Hemoglobin 11.7 g/dL (12.0-16.0); Mean Corpuscular HGB Conc 32 g/dL (31-36); Mean Corpuscular Hemoglobin 28 pg (27-31); Mean Corpuscular Volume 86 fL (80-97); Mean Platelet Volume 8.5 fL (7.4-10.4); Platelet Count 127 10^3/uL (150-450); Red Blood Count 4.25 10^6 /uL (3.70-4.87); Red Cell Distribution Width 15 % (10-15); White Blood Count 14.7 10^3/uL (3.5-10.8)
[2019-06-09] MEDS ORDERED: ACETYLCYSTEINE IV ONE ×2
[2019-06-09] MEDS ORDERED: D5W IV ONE ×2
[2019-06-09 00:14] LABS: Albumin 3.2 g/dL (3.2-5.2); Albumin/Globulin Ratio 1.1 (1-3); Alkaline Phosphatase 152 U/L (34-104); Anion Gap 14 mmol/L (2-11); BUN/Creatinine Ratio 15.3 (8-20); Blood Urea Nitrogen 33 mg/dL (6-24); CO2 Carbon Dioxide 21 mmol/L (22-32); Calcium 8.1 mg/dL (8.6-10.3); Chloride 98 mmol/L (101-111); EGFR African American 26.6 (>60); Globulin 2.9 g/dL (2-4); Glucose 180 mg/dL (70-100); Potassium 4.5 mmol/L (3.5-5.0); Sodium 133 mmol/L (135-145); Total Protein 6.1 g/dL (6.4-8.9)
[2019-06-09 00:25] LABS: Troponin I 1.53 ng/mL (<0.04)
[2019-06-09 01:32] LABS: ALT 4782 U/L (7-52); AST 9345 U/L (13-39)
[2019-06-09] MEDS ORDERED: Oxazepam CAP* 10 MG PO PRN (03:45)
[2019-06-09 05:55] LABS: Hematocrit 38 % (35-47); Hemoglobin 12.1 g/dL (12.0-16.0); Mean Corpuscular HGB Conc 32 g/dL (31-36); Mean Corpuscular Hemoglobin 27 pg (27-31); Mean Corpuscular Volume 86 fL (80-97); Mean Platelet Volume 9.2 fL (7.4-10.4); Platelet Count 118 10^3/uL (150-450); Red Blood Count 4.41 10^6 /uL (3.70-4.87); Red Cell Distribution Width 15 % (10-15); White Blood Count 16.3 10^3/uL (3.5-10.8)
[2019-06-09 06:03] LABS: Activated Partial Thrombo Time 47.7 seconds (26.0-38.0); INR 4.58 (0.82-1.09)
[2019-06-09 06:19] LABS: Albumin 3.1 g/dL (3.2-5.2); Alkaline Phosphatase 169 U/L (34-104); Anion Gap 17 mmol/L (2-11); BUN/Creatinine Ratio 15.1 (8-20); Blood Urea Nitrogen 35 mg/dL (6-24); CO2 Carbon Dioxide 18 mmol/L (22-32); Calcium 7.8 mg/dL (8.6-10.3); Chloride 97 mmol/L (101-111); EGFR African American 24.5 (>60); EGFR Non-African American 20.3 (>60); Glucose 163 mg/dL (70-100); Potassium 3.8 mmol/L (3.5-5.0); Sodium 132 mmol/L (135-145); Total Protein 6.1 g/dL (6.4-8.9)
[2019-06-09 06:24] LABS: Troponin I 2.33 ng/mL (<0.04)
[2019-06-09 06:43] LABS: ALT 4784 U/L (7-52); AST 8442 U/L (13-39)
[2019-06-09] MEDS: NS 0.9% 1000 ML** 1,000 ML IV SCH ×2 (06:45→18:13)
--- NOTE | 2019-06-09 09:04 | PN ---
Date of Service: 06/09/19 - HD 2 Critical Care Services: 79 yo F with PMH wich includes CHF, HTN, seizures, CVA, Afib, bradycaria, COPD and alcoholism. She presented to the ED on 06/08 with 2 days of shortness of breath which is worsening, weakness and fever. Per patient she has just returned from [place] on 06/06/2019. On arrival to ED sats noted to be low 80s, improving after placed on face mask. On evaluation in the ED she was noted to be febrile to 103.5, HR 146, BP 158/ 106. Physical exam negative for abdominal pain. She was noted to be in acute respiratory distress but speaking in full sendencs. HR tachycardic and irregular. Lung sounds reduced bilaterally. Labs concerning for WBC 22.3, INR 3.31, Creatinine 1.70, lactic acid 8.2, AST 4265, ALT 2904, Troponin 1.12, BNP > 1300. CT abdomen shows fatty infiltration of liver. Admitted to ICU for further workup and care. On arrival patient appears comfortable. She is alert but confused, unable to provide much information. Per her she has had poor appetite and fatigue for a while. She only developed the cough in the few days since they have arrived back from [place]. He notes that she would have episodes of "panting" where it seemed she could not catch her breath. When she didn't improve with cough medicine he brought her in. He denies noting any swelling of the extremities. He also reports no episodes of nausea or vomiting, but she did have one episode of diarrhea on the day prior to presentation. He cannot remember her eating any mushrooms while in [place] and states that the only Tylenol she has taken in recent memory is the Tylenol they gave her in the ED on presentation for the fever. Seen by Cardiology shortly after arrival on unit. TTE concerning for recent NE in past few days and also shows signs of right heart strain concerning for PE, GI consulted; recommended Acedote protocol and attempting transfer to liver center. Acedote intitiated. Via transfer center, have called [facility] (too full), [facility] (no liver txplt), [facility] (no liver txplt), [facility] (no liver txplt). Provisionally accepted at [facility] pending bed opening up. 06/09: No overnight events. VQ scan in progress. Vital Signs: Temp Pulse Resp BP SpO2 FiO2 99.1 F 114 24 127/84 96 06/09/19 03:31 06/09/19 08:00 06/09/19 08:00 06/09/19 08:00 06/09/19 08:00 Physical Exam: Gen: sitting up in bed, some work of breathing HEENT: ventimask in place Lungs: coarse bilaterally Cardiac: tachycardic, irregular Abdomen: soft, NTND Extremities: warm, dry, no edema Neuro: alert, conversant Fluid Balance (Past 24 Hours): I= O= Net Intake & Output 06/07/19 06/08/19 06/09/19 06/10/19 06:59 06:59 06:59 06:59 Intake Total 4119 Output Total 256 30 Balance 3863 -30 Weight 119 lb 14.65 oz Intake: IV Fluids 4024 Acetylcysteine 1065 LR 1000 NS 909 IVPB 65 Calcium Gluc 65 Oral 30 Output: Joya 256 30 Labs: Laboratory Results - last 24 hr 06/08/19 06/08/19 06/08/19 12:38 12:38 12:38 WBC 22.3 H RBC 4.52 Hgb 12.7 Hct 39 MCV 87 MCH 28 MCHC 32 RDW 15 Plt Count 197 MPV 8.2 Neut % (Auto) 92.4 Lymph % (Auto) 5.2 Pecos % (Auto) 2.3 Eos % (Auto) 0.0 Baso % (Auto) 0.1 Absolute Neuts (auto) 20.6 H Absolute Lymphs (auto) 1.2 Absolute Monos (auto) 0.5 Absolute Eos (auto) 0.0 Absolute Basos (auto) 0.0 Absolute Nucleated RBC 0.0 Nucleated RBC % 0.1 INR (Anticoag Therapy) 3.31 H APTT 50.3 H ABG pH ABG pCO2 ABG pO2 ABG HCO3 ABG O2 Saturation ABG Base Excess Sodium 133 L Potassium 4.7 Chloride 94 L Carbon Dioxide 19 L Anion Gap 20 H BUN 29 H Creatinine 1.70 H Est GFR ( Amer) 35.1 Est GFR (Non-Af Amer) 29.0 BUN/Creatinine Ratio 17.1 Glucose 129 H POC Glucose (mg/dL) Lactic Acid Calcium 9.1 Ionized Calcium Phosphorus Magnesium Total Bilirubin 1.20 H GGT AST 4265 H ALT 2904 H Alkaline Phosphatase 189 H Ammonia Lactate Dehydrogenase Total Creatine Kinase 211 CK-MB (CK-2) 7.8 H Troponin I 1.12 H* C-Reactive Protein 55.99 H B-Natriuretic Peptide Total Protein 7.8 Albumin 3.9 Globulin 3.9 Albumin/Globulin Ratio 1.0 Triglycerides Cholesterol LDL Cholesterol HDL Cholesterol Amylase 267 H Lipase 35 Urine Color Urine Appearance Urine pH Ur Specific Red Bud Urine Protein Urine Ketones Urine Blood Urine Nitrate Urine Bilirubin Urine Urobilinogen Ur Leukocyte Esterase Urine WBC (Auto) Urine RBC (Auto) Ur Squamous Epith Cells Ur Transition Epith Cell Urine Bacteria Urine Glucose Digoxin Salicylates Acetaminophen Hepatitis A IgM Ab Hep Bs Antigen Hep B Core IgM Ab Hepatitis C Antibody Hepatitis C Ab Index 06/08/19 06/08/19 06/08/19 12:38 12:38 12:46 WBC RBC Hgb Hct MCV MCH MCHC RDW Plt Count MPV Neut % (Auto) Lymph % (Auto) [place] % (Auto) Eos % (Auto) Baso % (Auto) Absolute Neuts (auto) Absolute Lymphs (auto) Absolute Monos (auto) Absolute Eos (auto) Absolute Basos (auto) Absolute Nucleated RBC Nucleated RBC % INR (Anticoag Therapy) APTT ABG pH 7.34 L ABG pCO2 26 L ABG pO2 155 H ABG HCO3 17.1 L ABG O2 Saturation 100.0 H ABG Base Excess -10.1 L Sodium Potassium Chloride Carbon Dioxide Anion Gap BUN Creatinine Est GFR ( Amer) Est GFR (Non-Af Amer) BUN/Creatinine Ratio Glucose POC Glucose (mg/dL) Lactic Acid 8.2 H* Calcium Ionized Calcium Phosphorus Magnesium Total Bilirubin GGT AST ALT Alkaline Phosphatase Ammonia Lactate Dehydrogenase Total Creatine Kinase CK-MB (CK-2) Troponin I C-Reactive Protein B-Natriuretic Peptide > 1300 H Total Protein Albumin Globulin Albumin/Globulin Ratio Triglycerides Cholesterol LDL Cholesterol HDL Cholesterol Amylase Lipase Urine Color Urine Appearance Urine pH Ur Specific [place] Urine Protein Urine Ketones Urine Blood Urine Nitrate Urine Bilirubin Urine Urobilinogen Ur Leukocyte Esterase Urine WBC (Auto) Urine RBC (Auto) Ur Squamous Epith Cells Ur Transition Epith Cell Urine Bacteria Urine Glucose Digoxin Salicylates Acetaminophen Hepatitis A IgM Ab Hep Bs Antigen Hep B Core IgM Ab Hepatitis C Antibody Hepatitis C Ab Index 06/08/19 06/08/19 06/08/19 14:33 14:33 16:45 WBC RBC Hgb Hct MCV MCH MCHC RDW Plt Count MPV Neut % (Auto) Lymph % (Auto) [place] % (Auto) Eos % (Auto) Baso % (Auto) Absolute Neuts (auto) Absolute Lymphs (auto) Absolute Monos (auto) Absolute Eos (auto) Absolute Basos (auto) Absolute Nucleated RBC Nucleated RBC % INR (Anticoag Therapy) APTT ABG pH ABG pCO2 ABG pO2 ABG HCO3 ABG O2 Saturation ABG Base Excess Sodium Potassium Chloride Carbon Dioxide Anion Gap BUN Creatinine Est GFR ( Amer) Est GFR (Non-Af Amer) BUN/Creatinine Ratio Glucose POC Glucose (mg/dL) Lactic Acid 5.3 H* Calcium Ionized Calcium Phosphorus Magnesium Total Bilirubin GGT AST ALT Alkaline Phosphatase Ammonia Lactate Dehydrogenase Total Creatine Kinase CK-MB (CK-2) Troponin I C-Reactive Protein B-Natriuretic Peptide Total Protein Albumin Globulin Albumin/Globulin Ratio Triglycerides Cholesterol LDL Cholesterol HDL Cholesterol Amylase Lipase Urine Color Urine Appearance Urine pH Ur Specific [place] Urine Protein Urine Ketones Urine Blood Urine Nitrate Urine Bilirubin Urine Urobilinogen Ur Leukocyte Esterase Urine WBC (Auto) Urine RBC (Auto) Ur Squamous Epith Cells Ur Transition Epith Cell Urine Bacteria Urine Glucose Digoxin Salicylates < 2.50 Acetaminophen 19 Hepatitis A IgM Ab Negative Hep Bs Antigen Negative Hep B Core IgM Ab Nonreactive Hepatitis C Antibody Negative Hepatitis C Ab Index 0.01 06/08/19 06/08/19 06/08/19 16:45 16:45 20:22 WBC RBC Hgb Hct MCV MCH MCHC RDW Plt Count MPV Neut % (Auto) Lymph % (Auto) [place] % (Auto) Eos % (Auto) Baso % (Auto) Absolute Neuts (auto) Absolute Lymphs (auto) Absolute Monos (auto) Absolute Eos (auto) Absolute Basos (auto) Absolute Nucleated RBC Nucleated RBC % INR (Anticoag Therapy) APTT ABG pH ABG pCO2 ABG pO2 ABG HCO3 ABG O2 Saturation ABG Base Excess Sodium 134 L Potassium 4.6 Chloride 100 L Carbon Dioxide 19 L Anion Gap 15 H BUN 30 H Creatinine 2.02 H Est GFR ( Amer) 28.7 Est GFR (Non-Af Amer) 23.8 BUN/Creatinine Ratio 14.9 Glucose 113 H POC Glucose (mg/dL) 119 H Lactic Acid Calcium 8.1 L Ionized Calcium Phosphorus 5.6 H Magnesium 2.0 Total Bilirubin 0.80 GGT 62 AST 4265 H ALT 2904 H Alkaline Phosphatase 148 H Ammonia 257 H Lactate Dehydrogenase > 56290 H Total Creatine Kinase CK-MB (CK-2) Troponin I 2.10 H* C-Reactive Protein B-Natriuretic Peptide Total Protein 6.3 L Albumin 3.3 Globulin 3.0 Albumin/Globulin Ratio 1.1 Triglycerides 56 Cholesterol 116 LDL Cholesterol 72 HDL Cholesterol 33.2 Amylase Lipase Urine Color Urine Appearance Urine pH Ur Specific [place] Urine Protein Urine Ketones Urine Blood Urine Nitrate Urine Bilirubin Urine Urobilinogen Ur Leukocyte Esterase Urine WBC (Auto) Urine RBC (Auto) Ur Squamous Epith Cells Ur Transition Epith Cell Urine Bacteria Urine Glucose Digoxin 0.5 L Salicylates Acetaminophen Hepatitis A IgM Ab Hep Bs Antigen Hep B Core IgM Ab Hepatitis C Antibody Hepatitis C Ab Index 06/08/19 06/08/19 06/08/19 21:50 23:30 23:30 WBC 14.7 H RBC 4.25 Hgb 11.7 L Hct 37 MCV 86 MCH 28 MCHC 32 RDW 15 Plt Count 127 L MPV 8.5 Neut % (Auto) Lymph % (Auto) [place] % (Auto) Eos % (Auto) Baso % (Auto) Absolute Neuts (auto) Absolute Lymphs (auto) Absolute Monos (auto) Absolute Eos (auto) Absolute Basos (auto) Absolute Nucleated RBC Nucleated RBC % INR (Anticoag Therapy) APTT ABG pH ABG pCO2 ABG pO2 ABG HCO3 ABG O2 Saturation ABG Base Excess Sodium Potassium Chloride Carbon Dioxide Anion Gap BUN Creatinine Est GFR ( Amer) Est GFR (Non-Af Amer) BUN/Creatinine Ratio Glucose POC Glucose (mg/dL) Lactic Acid Calcium Ionized Calcium 1.04 L Phosphorus Magnesium Total Bilirubin GGT AST ALT Alkaline Phosphatase Ammonia Lactate Dehydrogenase Total Creatine Kinase CK-MB (CK-2) Troponin I C-Reactive Protein B-Natriuretic Peptide Total Protein Albumin Globulin Albumin/Globulin Ratio Triglycerides Cholesterol LDL Cholesterol HDL Cholesterol Amylase Lipase Urine Color Promise Urine Appearance Turbid Urine pH 5.0 Ur Specific Red Bud 1.012 Urine Protein 2+(100 mg/dl) A Urine Ketones Trace A Urine Blood 1+ A Urine Nitrate Negative Urine Bilirubin Negative Urine Urobilinogen Negative Ur Leukocyte Esterase Negative Urine WBC (Auto) 3+(>20/hpf) A Urine RBC (Auto) 3+(>10/hpf) A Ur Squamous Epith Cells Present A Ur Transition Epith Cell Present A Urine Bacteria Absent Urine Glucose 1+(50 mg/dl) A Digoxin Salicylates Acetaminophen Hepatitis A IgM Ab Hep Bs Antigen Hep B Core IgM Ab Hepatitis C Antibody Hepatitis C Ab Index 06/08/19 06/08/19 06/09/19 23:30 23:30 03:15 WBC RBC Hgb Hct MCV MCH MCHC RDW Plt Count MPV Neut % (Auto) Lymph % (Auto) [place] % (Auto) Eos % (Auto) Baso % (Auto) Absolute Neuts (auto) Absolute Lymphs (auto) Absolute Monos (auto) Absolute Eos (auto) Absolute Basos (auto) Absolute Nucleated RBC Nucleated RBC % INR (Anticoag Therapy) APTT ABG pH ABG pCO2 ABG pO2 ABG HCO3 ABG O2 Saturation ABG Base Excess Sodium 133 L Potassium 4.5 Chloride 98 L Carbon Dioxide 21 L Anion Gap 14 H BUN 33 H Creatinine 2.16 H Est GFR ( Amer) 26.6 Est GFR (Non-Af Amer) 22.0 BUN/Creatinine Ratio 15.3 Glucose 180 H POC Glucose (mg/dL) 190 H Lactic Acid 4.3 H* Calcium 8.1 L Ionized Calcium Phosphorus Magnesium 2.0 Total Bilirubin 0.90 GGT AST 9345 H ALT 4782 H Alkaline Phosphatase 152 H Ammonia Lactate Dehydrogenase Total Creatine Kinase CK-MB (CK-2) Troponin I 1.53 H* C-Reactive Protein B-Natriuretic Peptide Total Protein 6.1 L Albumin 3.2 Globulin 2.9 Albumin/Globulin Ratio 1.1 Triglycerides Cholesterol LDL Cholesterol HDL Cholesterol Amylase Lipase Urine Color Urine Appearance Urine pH Ur Specific [place] Urine Protein Urine Ketones Urine Blood Urine Nitrate Urine Bilirubin Urine Urobilinogen Ur Leukocyte Esterase Urine WBC (Auto) Urine RBC (Auto) Ur Squamous Epith Cells Ur Transition Epith Cell Urine Bacteria Urine Glucose Digoxin Salicylates Acetaminophen Hepatitis A IgM Ab Hep Bs Antigen Hep B Core IgM Ab Hepatitis C Antibody Hepatitis C Ab Index 06/09/19 06/09/19 06/09/19 05:26 05:26 05:30 WBC 16.3 H RBC 4.41 Hgb 12.1 Hct 38 MCV 86 MCH 27 MCHC 32 RDW 15 Plt Count 118 L MPV 9.2 Neut % (Auto) Lymph % (Auto) [place] % (Auto) Eos % (Auto) Baso % (Auto) Absolute Neuts (auto) Absolute Lymphs (auto) Absolute Monos (auto) Absolute Eos (auto) Absolute Basos (auto) Absolute Nucleated RBC Nucleated RBC % INR (Anticoag Therapy) 4.58 H APTT 47.7 H ABG pH ABG pCO2 ABG pO2 ABG HCO3 ABG O2 Saturation ABG Base Excess Sodium 132 L Potassium 3.8 Chloride 97 L Carbon Dioxide 18 L Anion Gap 17 H BUN 35 H Creatinine 2.32 H Est GFR ( Amer) 24.5 Est GFR (Non-Af Amer) 20.3 BUN/Creatinine Ratio 15.1 Glucose 163 H POC Glucose (mg/dL) Lactic Acid Calcium 7.8 L Ionized Calcium Phosphorus Magnesium Total Bilirubin 1.10 H GGT AST 8442 H ALT 4784 H Alkaline Phosphatase 169 H Ammonia Lactate Dehydrogenase Total Creatine Kinase CK-MB (CK-2) Troponin I 2.33 H* C-Reactive Protein B-Natriuretic Peptide Total Protein 6.1 L Albumin 3.1 L Globulin 3.0 Albumin/Globulin Ratio 1.0 Triglycerides Cholesterol LDL Cholesterol HDL Cholesterol Amylase Lipase Urine Color Urine Appearance Urine pH Ur Specific [place] Urine Protein Urine Ketones Urine Blood Urine Nitrate Urine Bilirubin Urine Urobilinogen Ur Leukocyte Esterase Urine WBC (Auto) Urine RBC (Auto) Ur Squamous Epith Cells Ur Transition Epith Cell Urine Bacteria Urine Glucose Digoxin Salicylates Acetaminophen Hepatitis A IgM Ab Hep Bs Antigen Hep B Core IgM Ab Hepatitis C Antibody Hepatitis C Ab Index 06/09/19 06/09/19 05:30 06:11 WBC RBC Hgb Hct MCV MCH MCHC RDW Plt Count MPV Neut % (Auto) Lymph % (Auto) [place] % (Auto) Eos % (Auto) Baso % (Auto) Absolute Neuts (auto) Absolute Lymphs (auto) Absolute Monos (auto) Absolute Eos (auto) Absolute Basos (auto) Absolute Nucleated RBC Nucleated RBC % INR (Anticoag Therapy) APTT ABG pH ABG pCO2 ABG pO2 ABG HCO3 ABG O2 Saturation ABG Base Excess Sodium Potassium Chloride Carbon Dioxide Anion Gap BUN Creatinine Est GFR ( Amer) Est GFR (Non-Af Amer) BUN/Creatinine Ratio Glucose POC Glucose (mg/dL) Lactic Acid Calcium Ionized Calcium Phosphorus Magnesium Total Bilirubin GGT AST ALT Alkaline Phosphatase Ammonia Lactate Dehydrogenase Total Creatine Kinase CK-MB (CK-2) Troponin I C-Reactive Protein B-Natriuretic Peptide > 1300 H Total Protein Albumin Globulin Albumin/Globulin Ratio Triglycerides Cholesterol LDL Cholesterol HDL Cholesterol Amylase Lipase Urine Color Urine Appearance Urine pH Ur Specific [place] Urine Protein Urine Ketones Urine Blood Urine Nitrate Urine Bilirubin Urine Urobilinogen Ur Leukocyte Esterase Urine WBC (Auto) Urine RBC (Auto) Ur Squamous Epith Cells Ur Transition Epith Cell Urine Bacteria Urine Glucose Digoxin Salicylates Acetaminophen < 15 Hepatitis A IgM Ab Hep Bs Antigen Hep B Core IgM Ab Hepatitis C Antibody Hepatitis C Ab Index Studies: 06/09 VQ scan - solitary unmatched subsegmental perfusion defect at the apical posterior segment of the LEFT upper lobe. Low probability for pulmonary embolism 06/08 Portal vein US - normal duplex of liver (including SMA, SMV, portal veins, hepatic veins and hepatic artery) 06/08 Duplex BLE - no DVT in right or left leg 06/08 CT abdomen - hepatic steatosis. Nonobstructing renal calculi. Possible gallstone 06/08 TTE - LVEF 35-40% with global hypokinesis, previously normal right ventricle dilated with reduced systolic function, previously normal. unable to assess pulmonary artery pressure septal flattening consistent with RV volume or pressure overload left atrium severely dilated right atrium mildly dilated. mild to mod mitral valve regurgitation mild aortic regurgitation tricuspid with mild to moderate regurgitation mild distention of ascending aortia 06/08 CXR - mild vascular congestion with cardiomegaly Nutrition: NPO Impression: 79 yo F with PMH including CAD, CHF, Afib presents to the ED on 06/08 with fevers and shortness of breath. Found to have acute liver injury, acute kidney injury, subacute anteroseptal NE and concern for PE. Plan: Cardiovascular: (1) Afib with RVR; (2) Chronic atrial fibrillation; (3) Acute on chronic systolic CHF; (4) subacute anteroseptal NE; (5) Chronic essential HTN ; (6) hx of bradycardia; (7) CAD with hx of prior NE; (8) hx of mitral valve regurgitation -- HR 99-158 -- SBP 88-175 -- Telemetry -- EKG, 06/08: Afib with RVR -- EKG, 06/09: ordered -- TTE, 06/08: LVEF 35-40% with global hypokinesis, previously normal right ventricle dilated with reduced systolic function, previously normal. unable to assess pulmonary artery pressure septal flattening consistent with RV volume or pressure overload left atrium severely dilated right atrium mildly dilated. mild to mod mitral valve regurgitation mild aortic regurgitation tricuspid with mild to moderate regurgitation mild distention of ascending aortia -- Cardiac markers CK 211 MB 7.8 Trop 2.33 from 1.53 from 2.10 from 1.12 BNP >1300 from >1300, follow trend -- Lipid panel Triglycerides 56 Cholesterol 116 LDL 72 HDL 33.2 -- digoxin level - not elevated -- Carvediolol, resume home digoxin -- ASA -- cardiology consulted Home meds: Digoxin, Carvedilol, Xarelto, ASA, Atorvastatin Pulmonary: (1) Acute hypoxic respiratory failure, improving; (2) COPD; (3) hx of pulmonary edema; (4) hx of bronchitis -- VQ scan, 06/09 - solitary unmatched subsegmental perfusion defect at the apical posterior segment of the LEFT upper lobe. Low probability for pulmonary embolism -- CXR, 06/09 - NAD -- RR 17-42 -- sats 96-100 on 4L NC -- wean NC O2 as able Home meds: None Gastrointestinal: (1) Acute liver failure; (2) Elevated amylase -- US liver - patent portal vein, hepatic arteries and veins -- CT abdomen, 06/08: hepatic steatosis. Nonobstructing renal calculi. Possible gallstone -- LFTs Tbili 1.10 from 0.9 form 0.8 from 1.20, follow trend ALK 169 frin 152 from 148 from 189, follow trend AST 8442 from 9345 from 4265 from 4265, follow trend ALT 4784 from 4782 from 2904 from 2904, follow trend GGT 62 Ammonia 257, check repeat LDH >02187 -- Pancreatic enzymes Amylase 267, follow trend Lipase 35 -- Acetaminophen level < 15 from 19, cleared -- salicylate level <2.50 -- hepatitis panel negative -- autoimmune markers Smooth muscle Ab in process ELGIN in process kidney, liver microsomal in process -- diet: NPO -- bowel regimen: None -- ulcer prophylaxis: Not indicated at this time -- completing Acedote protocol Home meds: None Endocrine: (1) Hyperglycemia -- monitor BGs -- start sliding scale insulin if BGs > 180 -- thryroid function tests pending Home meds: None Renal: (1) Acute kidney failure with oliguria; (2) Hyponatremia; (3) Hypocalemia; (4) Hyperphosphatemia; (5) hx of hematuria -- UOP: 20 ml/hr -- Cr 2.32 from 2.16 -- Lytes Na 132 from 133, on NS replacement, follow trend K 3.8 Ca 7.8, replacing Mag 2.0 Phos 5.6, follow trend -- IVF: NS @ 100 ml/hr Home meds: None Infectious disease: (1) Sepsis -- Tmax 104.6 in ED, 99.1 since arrival to ICU -- WBC 16.3 from 14.7 from 22.3 -- CRP 55.99, elevated -- Micro 06/08 Hepatitis A negative Hepatitis B negative Hepatitis C negative Hepatitis E pending CMV pending EBV pending Herpes pending VZV pending blood No growth to date UA negative sputum ordered MRSA screen negative -- ABX Rocephin Home meds: None Neurologic: (1) Alcoholism; (2) hx of seizure disorder; (3) 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 -- Lamictal and Keppra Home meds: Lamictal, Keppra Hematological: (1) Coagulopathy secondary to liver failure; (2) on outpatient Xarelto; (3) Mild thrombocytopenia -- Hgb 12.1 from 11.7 -- Plt 118 from 127 -- Coags INR 4.58 from 3.31 PTT 47.7 from 50.3 -- DVT prophylaxis: SCDs -- ASA Home meds: Xarelto, ASA Metabolic: (1) Lactic acidosis -- Lactic acid 4.3 from 5.3 from 8.2, hydrate, follow trend -- Sodium bicarbonate Home meds: None Deep vein thrombosis prophylaxis: SCDs Dietary: not indicated at this time Condition: serious Prognosis: guarded Code status: full Disposition: admitted to ICU updated at beside on interval events and plan of care Cumulative time spent in the care of this patient (excluding any procedure time) : at least 60 minutes. Patient care included clinical interview (with patient and/or family), bedside exam of the patient, review of labs, x-rays, and other ancillary data, coordination of (respiratory, nursing care, review of patient's records, discussion regarding patients management with involved consultants, primary physician, pharmacists, and other healthcare personnel (dietary, case management , physical/occupational therapy etc.) Critical Care Time: 60
[2019-06-09] MEDS: Carvedilol TAB* 3.125 MG PO SCH ×2 (09:47→20:28)
[2019-06-09] MEDS ORDERED: Calcium Gluconate INJ* 1 GM in NS 0.9% 50 ML* 50 ML IVPB ONE (10:15)
[2019-06-09] MEDS ORDERED: Albumin Human 25%* 25 GM/100 ML BTL IV ONE (10:25)
[2019-06-09] MEDS ORDERED: Digoxin TAB* 0.125 MG PO SCH (11:00)
[2019-06-09] MEDS: Aspirin 81 mg CHEW TAB* 81 MG TAB.CHEW PO SCH (12:18)
[2019-06-09] MEDS: Sodium Bicarbonate (ANTACID)* 650 MG TAB PO SCH ×5 (12:21→20:52)
[2019-06-09] MEDS ORDERED: Morphine 4 MG/ML VIAL (1 ml) 4 MG/ML VIAL IV PRN (13:10)
[2019-06-09] MEDS ORDERED: Albuterol/Ipratropium NEB.SOL* Albuterol 2.5 MG/Ipratropium 0.5 MG 3 ML INH PRN (13:11)
[2019-06-09 13:51] LABS: Phosphorus 4.9 mg/dL (2.5-5.0)
[2019-06-09 14:07] LABS: TSH (Thyroid Stimulating Horm) 4.59 mcIU/mL (0.34-5.60)
[2019-06-09 14:12] LABS: Free T4 1.29 ng/dL (0.61-1.12)
[2019-06-09] MEDS: cefTRIAXone(*) 1 GM in NS 0.9% 50 ML* 50 ML IVPB SCH (16:24)
[2019-06-09] MEDS ORDERED: NS 0.9% 1000 ML** 1,000 ML IV SCH (19:21)
[2019-06-10] MEDS: Sodium Bicarbonate (ANTACID)* 650 MG TAB PO SCH ×6 (02:07→22:01)
[2019-06-10] MEDS: Norepinephrine VIAL* 8 MG in NS 0.9% 500 ML* 492 ML IV SCH ×2 (04:40→05:09)
[2019-06-10 04:43] LABS: Hematocrit 32 % (35-47); Hemoglobin 10.6 g/dL (12.0-16.0); Mean Corpuscular HGB Conc 33 g/dL (31-36); Mean Corpuscular Hemoglobin 28 pg (27-31); Mean Corpuscular Volume 85 fL (80-97); Mean Platelet Volume 9.3 fL (7.4-10.4); Platelet Count 116 10^3/uL (150-450); Red Blood Count 3.83 10^6 /uL (3.70-4.87); Red Cell Distribution Width 15 % (10-15)
[2019-06-10 04:56] LABS: Activated Partial Thrombo Time 47.3 seconds (26.0-38.0); INR 4.34 (0.82-1.09)
[2019-06-10 04:58] LABS: Albumin 2.7 g/dL (3.2-5.2); Albumin/Globulin Ratio 1.2 (1-3); Alkaline Phosphatase 146 U/L (34-104); Amylase 57 U/L (29-103); Anion Gap 16 mmol/L (2-11); Blood Urea Nitrogen 40 mg/dL (6-24); CO2 Carbon Dioxide 17 mmol/L (22-32); Calcium 7.7 mg/dL (8.6-10.3); Chloride 103 mmol/L (101-111); EGFR African American 19.2 (>60); EGFR Non-African American 15.9 (>60); Globulin 2.3 g/dL (2-4); Glucose 97 mg/dL (70-100); Potassium 3.3 mmol/L (3.5-5.0); Sodium 136 mmol/L (135-145)
[2019-06-10 05:05] LABS: Troponin I 0.77 ng/mL (<0.04)
[2019-06-10 05:39] LABS: ALT 3065 U/L (7-52); AST 3236 U/L (13-39)
[2019-06-10] MEDS: Aspirin 81 mg CHEW TAB* 81 MG TAB.CHEW PO SCH (09:30)
[2019-06-10] MEDS: Carvedilol TAB* 3.125 MG PO SCH ×2 (09:31→20:10)
--- NOTE | 2019-06-10 12:00 | PN ---
Date of Service: 06/10/19 Critical Care Services: Acute hepatitis. CHF. SEMAJ. Vital Signs: Temp Pulse Resp BP SpO2 FiO2 36.8 C 89 19 107/61 97 40 06/10/19 08:00 06/10/19 11:15 06/10/19 11:15 06/10/19 11:15 06/10/19 11:15 06/10 08:00 Physical Exam: Gen: Alert and appropriate without specific complaint. HEENT: PERRL, NCAT Lungs: Basilar crackles Cardiac: S1S2 irregular Abdomen: soft, NT, ND, +BS Extremities: trace edema Neuro: A&O, grossly non-focal Fluid Balance (Past 24 Hours): I= O= Net Intake & Output 06/08/19 06/09/19 06/10/19 06/11/19 06:59 06:59 06:59 06:59 Intake Total 4119 2753 Output Total 256 680 85 Balance 3863 2073 -85 Weight 54.393 kg 56.4 kg Intake: IV Fluids 4024 2258 Acetylcysteine 1065 489 Calcium Gluc 70 LR 1000 NS 909 1699 IVPB 65 223 Acetylcysteine 223 Calcium Gluc 65 Medicated IV 12 CC - Norepinephrine/ 12 Levophed Oral 30 160 Albumin 100 Output: Joya 256 580 85 Liquid Stool 100 Other: Date of Last Bowel t Movement # Bowel Movements 2 Estimated Stool Amount Medium Labs: Laboratory Results - last 24 hr 06/09/19 06/09/19 06/09/19 12:55 12:55 12:55 WBC RBC Hgb Hct MCV MCH MCHC RDW Plt Count MPV INR (Anticoag Therapy) APTT Sodium Potassium Chloride Carbon Dioxide Anion Gap BUN Creatinine Est GFR ( Amer) Est GFR (Non-Af Amer) BUN/Creatinine Ratio Glucose POC Glucose (mg/dL) Lactic Acid 2.8 H* Calcium Phosphorus 4.9 Total Bilirubin AST ALT Alkaline Phosphatase Ammonia 189 H Troponin I B-Natriuretic Peptide Total Protein Albumin Globulin Albumin/Globulin Ratio Amylase TSH 4.59 Free T4 1.29 H 06/09/19 06/09/19 06/09/19 12:57 16:23 21:03 WBC RBC Hgb Hct MCV MCH MCHC RDW Plt Count MPV INR (Anticoag Therapy) APTT Sodium Potassium Chloride Carbon Dioxide Anion Gap BUN Creatinine Est GFR ( Amer) Est GFR (Non-Af Amer) BUN/Creatinine Ratio Glucose POC Glucose (mg/dL) 129 H 145 H 110 H Lactic Acid Calcium Phosphorus Total Bilirubin AST ALT Alkaline Phosphatase Ammonia Troponin I B-Natriuretic Peptide Total Protein Albumin Globulin Albumin/Globulin Ratio Amylase TSH Free T4 06/10/19 06/10/19 06/10/19 00:23 04:30 04:30 WBC RBC Hgb Hct MCV MCH MCHC RDW Plt Count MPV INR (Anticoag Therapy) 4.34 H APTT 47.3 H Sodium 136 Potassium 3.3 L Chloride 103 Carbon Dioxide 17 L Anion Gap 16 H BUN 40 H Creatinine 2.86 H Est GFR ( Amer) 19.2 Est GFR (Non-Af Amer) 15.9 BUN/Creatinine Ratio 14.0 Glucose 97 POC Glucose (mg/dL) 103 H Lactic Acid Calcium 7.7 L Phosphorus Total Bilirubin 1.60 H AST 3236 H ALT 3065 H Alkaline Phosphatase 146 H Ammonia Troponin I 0.77 H* B-Natriuretic Peptide Total Protein 5.0 L Albumin 2.7 L Globulin 2.3 Albumin/Globulin Ratio 1.2 Amylase 57 TSH Free T4 06/10/19 06/10/19 06/10/19 04:30 04:30 04:30 WBC 6.0 RBC 3.83 Hgb 10.6 L Hct 32 L MCV 85 MCH 28 MCHC 33 RDW 15 Plt Count 116 L MPV 9.3 INR (Anticoag Therapy) APTT Sodium Potassium Chloride Carbon Dioxide Anion Gap BUN Creatinine Est GFR ( Amer) Est GFR (Non-Af Amer) BUN/Creatinine Ratio Glucose POC Glucose (mg/dL) 91 Lactic Acid Calcium Phosphorus Total Bilirubin AST ALT Alkaline Phosphatase Ammonia Troponin I B-Natriuretic Peptide 1262 H Total Protein Albumin Globulin Albumin/Globulin Ratio Amylase TSH Free T4 06/10/19 08:28 WBC RBC Hgb Hct MCV MCH MCHC RDW Plt Count MPV INR (Anticoag Therapy) APTT Sodium Potassium Chloride Carbon Dioxide Anion Gap BUN Creatinine Est GFR ( Amer) Est GFR (Non-Af Amer) BUN/Creatinine Ratio Glucose POC Glucose (mg/dL) 100 Lactic Acid Calcium Phosphorus Total Bilirubin AST ALT Alkaline Phosphatase Ammonia Troponin I B-Natriuretic Peptide Total Protein Albumin Globulin Albumin/Globulin Ratio Amylase TSH Free T4 Nutrition: Will change to Full Liquids Impression: Ischemic Hepatitis and SEMAJ secondary to Acute on chronic combined systolic and diastolic heart failure Plan: Ischemic Hepatitis and SEMAJ secondary to Acute on chronic combined systolic and diastolic heart failure. I believe this all begins with the heart. Whether she has primary decompensated heart failure causing ischemia and troponin leak or the converse is hard to know for sure but I do believe it is the primary event. 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 that would make an ischemic hepatitis in her more demonstrative than usual. Now with the tincture of time it is easier for me to divine that this is all primary cardiogenic with secondary hypoperfusion causing ischemic hepatitis and ATN but that seems to be exactly what we have. Transaminases falling nicely, lactate falling as well, essentially normal. No indication to agosto to a transplant center at this time. Certainly if the clinical course changes so could the destination but for now I would sit. I lowered her vapotherm to 100% and 10 lpm while I spoke to the patient and her and she did well. RT now changing to [place]. Will allow PO, start Full Liquids. All the above discussed with patient and in detail who voiced understanding and appreciation for the care. Critical Care Time: 40 minutes
[2019-06-10 14:32] LABS: Procalcitonin, S 8.7 ng/mL (<=0.15)
[2019-06-10 16:33] LABS: Herpes Simplex Virus I IgG AB Negative (Negative); Herpes Simplex Virus II IgG AB Negative (Negative)
[2019-06-10] MEDS: Digoxin TAB* 0.125 MG PO SCH (17:20)
[2019-06-10] MEDS: cefTRIAXone(*) 1 GM in NS 0.9% 50 ML* 50 ML IVPB SCH (17:20)
--- NOTE | 2019-06-10 20:08 | CONS ---
GASTROENTEROLOGY CONSULT: DATE: 06/09/19 CONSULTING PHYSICIAN: Dr. Luz Irby, ICU. REASON FOR CONSULTATION: Elevated liver function tests of extreme degree, ALT 4782. 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 She had a temperature of 100.8, which then went to 104.6. No specific infection has been documented. Her liver function tests came back strikingly elevated with initial ALT 2904, AST 4265, bilirubin 1.2. INR 3.31, glucose 129, lactate 8.2. it was noted her troponin was up and she was somewhat hypoxic and her BNP was greater than 1300. Cardiac echo showed biventricular hypokinesis and significantly dilated right ventricle. She is known to have COPD. Her troponin is up. A recent GA is suspected. She has a history of ongoing fairly heavy wine intake, although never any medical complications specifically from that and it is of note that her alcohol level has been zero 4 times from 2012 until now. PAST MEDICAL HISTORY: 1. COPD - Quitting smoking in 1995. 2. Alcohol abuse - Without sequelae. 3. AFib - On Xarelto as an outpatient. 4. 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 5. Seizure disorder. 6. Congestive heart failure. MEDICATIONS: As an outpatient, she takes: 1. Atorvastatin 20. 2. Xarelto 15. 3. Carvedilol 3.125 b.i.d. 4. Digoxin 0.125 b.i.d. 5. Keppra 750 b.i.d. 6. Aspirin 81. 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 REVIEW OF SYSTEMS: There is no history of recent syncope or documented GA. She had a colonoscopy by Dr. Garcia in 2001, which was negative to the cecum. She has no prior history of hepatitis, jaundice or liver problems. Her ALTs have uniformly been normal including as recently as 04/21/19. EXAM: She is a slender, somewhat chronically ill-appearing woman, speaking softly, and a little bit somnolent. She is anicteric. She is not overtly short of breath. She has no adenopathy. She has rales at both bases. Heart sounds are irregular, somewhat distant and muffled. The abdomen is symmetric, soft, and nontender. Rectal deferred. Extremities show no edema. There is fullness with pressure in the right upper quadrant. IMAGING: CT of the abdomen on 06/08/19 shows a hypodense liver, normal in size , and a normal biliary tree apart from a small laminated gallstone. There is no ascites. Portal vein ultrasound was unremarkable. IMPRESSION: This 79-year-old woman presents with weakness and grossly elevated LFTs, a transaminitis pattern, with a relative paucity of bilirubin and alkaline phosphatase elevation. She has a history of cardiopulmonary disease that has been longstanding and moderately severe and may very well have been a minor complaint or somewhat subclinical based on a fairly inactive lifestyle. It does not appear she gets much exertion. There is nothing to support a toxic etiology for this event or alcohol as being a factor. Her atorvastatin use is long-standing and this pattern of injury is not characteristic of that. Acute viral hepatitis has been ruled out as regards A, B, and C. In short, combination of factors including chronic lung disease and right-sided heart failure is the perfect setting for ischemic hepatitis. Her prognosis is certainly guarded. [id number]/[facility] #: [id number] [facility]
[2019-06-11] MEDS: Sodium Bicarbonate (ANTACID)* 650 MG TAB PO SCH ×3 (01:20→09:42)
[2019-06-11 04:59] LABS: Hematocrit 32 % (35-47); Hemoglobin 10.9 g/dL (12.0-16.0); Mean Corpuscular HGB Conc 34 g/dL (31-36); Mean Corpuscular Hemoglobin 28 pg (27-31); Mean Corpuscular Volume 84 fL (80-97); Mean Platelet Volume 9.1 fL (7.4-10.4); Platelet Count 150 10^3/uL (150-450); Red Blood Count 3.84 10^6 /uL (3.70-4.87); Red Cell Distribution Width 15 % (10-15); White Blood Count 7.8 10^3/uL (3.5-10.8)
[2019-06-11 05:07] LABS: Activated Partial Thrombo Time 44.1 seconds (26.0-38.0); INR 2.8 (0.82-1.09)
[2019-06-11 05:17] LABS: Albumin 2.5 g/dL (3.2-5.2); Albumin/Globulin Ratio 1.1 (1-3); Alkaline Phosphatase 161 U/L (34-104); Anion Gap 16 mmol/L (2-11); BUN/Creatinine Ratio 18.1 (8-20); Blood Urea Nitrogen 54 mg/dL (6-24); CO2 Carbon Dioxide 19 mmol/L (22-32); Calcium 7.4 mg/dL (8.6-10.3); Chloride 105 mmol/L (101-111); EGFR African American 18.3 (>60); EGFR Non-African American 15.1 (>60); Globulin 2.3 g/dL (2-4); Glucose 121 mg/dL (70-100); Sodium 140 mmol/L (135-145); Total Protein 4.8 g/dL (6.4-8.9)
[2019-06-11 05:24] LABS: Troponin I 0.22 ng/mL (<0.04)
[2019-06-11] MEDS: Norepinephrine VIAL* 8 MG in NS 0.9% 500 ML* 492 ML IV SCH (05:26)
[2019-06-11 05:35] LABS: ALT 2449 U/L (7-52); AST 1610 U/L (13-39)
[2019-06-11] MEDS: Carvedilol TAB* 3.125 MG PO SCH (09:42)
[2019-06-11] MEDS: Aspirin 81 mg CHEW TAB* 81 MG TAB.CHEW PO SCH (09:42)
--- NOTE | 2019-06-11 10:04 | PN ---
Date of Service: 06/11/19 Critical Care Services: Room air, transaminases continue to improve Vital Signs: Temp Pulse Resp BP SpO2 FiO2 35.7 C 79 20 123/76 98 40 06/11/19 08:00 06/11/19 09:00 06/11/19 09:00 06/11/19 09:00 06/11/19 09:00 06/10 16:00 Physical Exam: Gen: Awake, self-feeding, no complaints apart from wanting garcia out and ambulation. HEENT: Lungs: Cardiac: Abdomen: Extremities: Neuro: Fluid Balance (Past 24 Hours): I= O= Net Intake & Output 06/09/19 06/10/19 06/11/19 06/12/19 06:59 06:59 06:59 06:59 Intake Total 4119 2753 1517 Output Total 256 680 598 60 Balance 3863 2073 919 -60 Weight 54.393 kg 56.4 kg 57.7 kg Intake: IV Fluids 4024 2258 447 Acetylcysteine 1065 489 Calcium Gluc 70 LR 1000 NS 909 1699 447 IVPB 65 223 62 ABX - CEFTRIAXONE 62 Acetylcysteine 223 Calcium Gluc 65 Medicated IV 12 108 CC - Norepinephrine/ 12 108 Levophed Oral 30 160 900 Albumin 100 Output: Garcia 256 580 598 60 Liquid Stool 100 Other: Date of Last Bowel t 06/10/19 Movement # Bowel Movements 2 1 Estimated Stool Amount Medium Medium Labs: Laboratory Results - last 24 hr 06/08/19 06/08/19 06/08/19 16:45 16:45 16:45 WBC RBC Hgb Hct MCV MCH MCHC RDW Plt Count MPV INR (Anticoag Therapy) APTT Sodium Potassium Chloride Carbon Dioxide Anion Gap BUN Creatinine Est GFR ( Amer) Est GFR (Non-Af Amer) BUN/Creatinine Ratio Glucose POC Glucose (mg/dL) Calcium Total Bilirubin AST ALT Alkaline Phosphatase Troponin I B-Natriuretic Peptide Total Protein Albumin Globulin Albumin/Globulin Ratio Procalcitonin 8.7 H Anti-Nuclear Antibody 0.4 EBV Early Antigen Negative HSV I IgG Ab Negative HSV II IgG Negative 06/10/19 06/10/19 06/10/19 12:41 17:55 19:50 WBC RBC Hgb Hct MCV MCH MCHC RDW Plt Count MPV INR (Anticoag Therapy) APTT Sodium Potassium Chloride Carbon Dioxide Anion Gap BUN Creatinine Est GFR ( Amer) Est GFR (Non-Af Amer) BUN/Creatinine Ratio Glucose POC Glucose (mg/dL) 101 H 87 132 H Calcium Total Bilirubin AST ALT Alkaline Phosphatase Troponin I B-Natriuretic Peptide Total Protein Albumin Globulin Albumin/Globulin Ratio Procalcitonin Anti-Nuclear Antibody EBV Early Antigen HSV I IgG Ab HSV II IgG 06/11/19 06/11/19 06/11/19 01:22 04:45 04:45 WBC RBC Hgb Hct MCV MCH MCHC RDW Plt Count MPV INR (Anticoag Therapy) 2.80 H APTT 44.1 H Sodium Potassium Chloride Carbon Dioxide Anion Gap BUN Creatinine Est GFR ( Amer) Est GFR (Non-Af Amer) BUN/Creatinine Ratio Glucose POC Glucose (mg/dL) 163 H Calcium Total Bilirubin AST ALT Alkaline Phosphatase Troponin I B-Natriuretic Peptide 772 H Total Protein Albumin Globulin Albumin/Globulin Ratio Procalcitonin Anti-Nuclear Antibody EBV Early Antigen HSV I IgG Ab HSV II IgG 06/11/19 06/11/19 04:45 04:45 WBC 7.8 RBC 3.84 Hgb 10.9 L Hct 32 L MCV 84 MCH 28 MCHC 34 RDW 15 Plt Count 150 MPV 9.1 INR (Anticoag Therapy) APTT Sodium 140 Potassium 3.0 L Chloride 105 Carbon Dioxide 19 L Anion Gap 16 H BUN 54 H Creatinine 2.99 H Est GFR ( Amer) 18.3 Est GFR (Non-Af Amer) 15.1 BUN/Creatinine Ratio 18.1 Glucose 121 H POC Glucose (mg/dL) Calcium 7.4 L Total Bilirubin 2.00 H AST 1610 H ALT 2449 H Alkaline Phosphatase 161 H Troponin I 0.22 H* B-Natriuretic Peptide Total Protein 4.8 L Albumin 2.5 L Globulin 2.3 Albumin/Globulin Ratio 1.1 Procalcitonin Anti-Nuclear Antibody EBV Early Antigen HSV I IgG Ab HSV II IgG Studies: CXR well aerated with only very fine interstitial edema. Nutrition: Tolerating Fulls, advance to regular diet Impression: Ischemic hepatitis, ATN, both secodnary to AMI and acute combined systolic and diastolic heart failure Plan: Likely recent AWMI - Source for ischemic hepatitis and ATN and CHF. ASA and BB. Coreg has been held for HoTN. Will use lopressor. Troponins down. CHF all but resolved. IVF off and she is equilibrating on her own. Now on RA. CXR better, BNP down. Ischemic Hepatitis - Transaminases continue to improve rapidly from peak at 9000. Bilirubin with the expected late rise consistent with this diagnosis and will soon plateau and fall as well. INR significantly improved without direct treatment. Encephalopathy all but resolved. ATN - Cr seems at plateau given attenuated rate of rise. Good UO. Garcia out today. AM labs ETOH - I counseled patient on decreasing her ETOH intake in presence of . Conversation well received but I did not feel was well-internalized by pt. Medically clear for transfer to floor. Start PT. Perhaps home in a couple of days depending upon self-care.
[2019-06-11] MEDS: Digoxin TAB* 0.125 MG PO SCH (17:40)
[2019-06-12 06:13] LABS: Hematocrit 33 % (35-47); Hemoglobin 10.9 g/dL (12.0-16.0); Mean Corpuscular HGB Conc 33 g/dL (31-36); Mean Corpuscular Hemoglobin 28 pg (27-31); Mean Corpuscular Volume 84 fL (80-97); Mean Platelet Volume 8.7 fL (7.4-10.4); Platelet Count 153 10^3/uL (150-450); Red Blood Count 3.92 10^6 /uL (3.70-4.87); Red Cell Distribution Width 15 % (10-15); White Blood Count 10.9 10^3/uL (3.5-10.8)
[2019-06-12 06:20] LABS: Activated Partial Thrombo Time 38.1 seconds (26.0-38.0); INR 1.97 (0.82-1.09)
[2019-06-12 06:32] LABS: Albumin 2.6 g/dL (3.2-5.2); Albumin/Globulin Ratio 1.1 (1-3); BUN/Creatinine Ratio 19.5 (8-20); EGFR African American 21.9 (>60); EGFR Non-African American 18.1 (>60); Globulin 2.4 g/dL (2-4); Potassium 2.9 mmol/L (3.5-5.0); Total Bilirubin 2.5 mg/dL (0.2-1.0)
--- NOTE | 2019-06-12 08:46 | PN ---
Subjective - Subjective Reason for Note: Progress Note History: I am assuming care of this patient now she is back in a general medical bed. I have reviewed her electronic health record. The patient has no insight into her situation. She presented with acute multi-organ failure - heart, lung, liver and kidney. The pathogenesis is now thought to be due to an acute myocardial infarction. She is slowly recovering. This morning she reports no pain and is not in acute distress. She is unable to give an account of her situation and is disoriented time, but on prompting she knows she is in a hospital in [place] and her name (and mine - I am her PCP) . Active Problems: Active Problems Acute myocardial infarction (Acute) I21.9 Acute renal failure (Acute) CHF, acute (Acute) I50.9 Ischemic hepatitis (Acute) K75.9 Current Medications: Current Medications Aspirin (Aspirin 81 Mg Chew Tab*) 81 mg PO DAILY [facility] Last Admin: 06/11/19 09:42 Dose: 81 mg Digoxin (Lanoxin Tab*) 0.125 mg PO QPM [facility] Last Admin: 06/11/19 17:40 Dose: 0.125 mg Ondansetron HCl (Zofran Inj*) 4 mg IV Q6H PRN PRN Reason: NAUSEA/VOMITING Oxazepam (Serax Cap*) 10 mg PO Q8H PRN PRN Reason: ANXIETY - SEVERE Last Admin: 06/09/19 04:17 Dose: 10 mg - Review of Systems Constitutional Symptoms: No: Fever Pulmonary: Positive: Cough, Shortness of Breath Negative: Sputum, Respiratory Distress Cardiology: Negative: Chest Pain, Palpitations, Swelling of Ankles Gastroenterology: Positive: Anorexia - improving Negative: Abdominal Pain, Nausea, Vomiting, Change in Bowel Habits Genital - Urinary: Negative: Dysuria Home Medications: Home Medications Medication Instructions Recorded Confirmed Type Digoxin TAB* [Lanoxin TAB*] 0.125 mg PO BID 11/14/17 06/08/19 History levETIRAcetam TAB* [Keppra TAB*] 750 mg PO BID tab 11/16/17 06/08/19 Rx Carvedilol TAB* [Coreg TAB*] 3.125 mg PO BID 03/10/18 06/08/19 History Aspirin 81 mg CHEW TAB* 81 mg PO DAILY 12/01/18 06/08/19 History Atorvastatin* [Lipitor 20 MG*] 20 mg PO BEDTIME 12/01/18 06/08/19 History Rivaroxaban TAB(*) [Xarelto 15 15 mg PO DAILY 12/01/18 06/08/19 History mg(*)] lamoTRIgine TAB(*) [Lamictal 100 mg PO BID 12/01/18 06/08/19 History TAB(*)] Allergies: Allergies Allergy/AdvReac Type Severity Reaction Status Date / Time No Known Allergies Allergy Verified 02/12/17 08:03 Objective - Vital Signs Vital Signs: Vital Signs 06/11/19 06/11/19 06/11/19 09:00 10:00 11:00 Temperature Pulse Rate 79 89 78 Respiratory 19 21 31 Rate Blood Pressure 123/76 136/88 111/71 (mmHg) O2 Sat by Pulse 98 97 96 Oximetry 06/11/19 06/11/19 06/11/19 11:54 17:40 19:51 Temperature 97.8 F Pulse Rate 82 80 88 Respiratory 18 16 Rate Blood Pressure 129/71 108/54 (mmHg) O2 Sat by Pulse 99 100 Oximetry 06/11/19 06/11/19 06/11/19 20:56 20:57 23:30 Temperature 97.8 F Pulse Rate 85 Respiratory 16 18 20 Rate Blood Pressure 139/80 (mmHg) O2 Sat by Pulse 99 Oximetry 06/12/19 06/12/19 04:05 07:30 Temperature 97.5 F 98.5 F Pulse Rate 80 88 Respiratory 20 16 Rate Blood Pressure 122/64 132/70 (mmHg) O2 Sat by Pulse 100 99 Oximetry - Intake and Output Intake and Output: Intake & Output 06/09/19 06/10/19 06/11/19 06/12/19 11:59 11:59 11:59 11:59 Intake Total 4119 2753 2067 0 Output Total 376 645 673 350 Balance 3743 2108 1394 -350 Weight 119 lb 14.65 oz 124 lb 5.451 oz 127 lb 3.307 oz Intake: IV Fluids 4024 2258 447 Acetylcysteine 1065 489 Calcium Gluc 70 LR 1000 NS 909 1699 447 IVPB 65 223 62 ABX - CEFTRIAXONE 62 Acetylcysteine 223 Calcium Gluc 65 Medicated IV 12 108 CC - Norepinephrine/ 12 108 Levophed Oral 30 160 1450 0 Albumin 100 Output: Urine 350 Joya 376 545 673 Liquid Stool 100 Other: Date of Last Bowel 06/10/19 06/10/19 Movement # Bowel Movements 2 1 0 Estimated Stool Amount Medium Medium ADLs: Meal Record Start: 06/08/19 17: 12 Freq: ,,18 Status: Complete Protocol: Created 06/08/19 17:12 System (Rec: 06/08/19 17:12 System ICU-C15) Document 06/08/19 18:00 [id number] (Rec: 06/08/19 18:02 [id number] ICU-C15) Document 06/09/19 17:54 HZB2785 (Rec: 06/09/19 17:54 LJL4331 ICU-C10) Document 06/10/19 09:00 HYH1969 (Rec: 06/10/19 11:30 LQJ0823 ICU-C25) Document 06/10/19 13:00 UCJ6250 (Rec: 06/10/19 18:17 SUG5109 ICU-C25) Document 06/10/19 18:00 ZWZ0734 (Rec: 06/10/19 19:47 LLP0872 ICU-C15) Document 06/11/19 09:00 IGU5934 (Rec: 06/11/19 11:50 TKW7070 ICU-C25) ADLs: Meal Record Start: 06/11/19 11: 54 Freq: DAILY@0900,1400,1800 Status: Active Protocol: Created 06/11/19 11:54 IYH7053 (Rec: 06/11/19 11:54 [id number] ICU-C25) Intake and Output Start: 06/08/19 12: 40 Freq: Status: Active Protocol: Created 06/08/19 12:40 System (Rec: 06/08/19 12:40 System [id number]) Intake and Output Start: 06/08/19 17: 12 Freq: Q1HR Status: Complete Protocol: Created 06/08/19 17:12 System (Rec: 06/08/19 17:12 System ICU-C15) Document 06/08/19 18:51 XLE1918 (Rec: 06/08/19 18:51 [id number] ICU-M29) Document 06/08/19 20:00 EZC7017 (Rec: 06/08/19 20:06 ZLN2068 ICU-M33) Document 06/08/19 21:00 HLU4310 (Rec: 06/08/19 21:56 EOD8586 ICU-M33) Document 06/08/19 21:56 TVN6151 (Rec: 06/08/19 21:58 OGU6980 ICU-M33) Document 06/08/19 23:00 VAW7026 (Rec: 06/08/19 23:03 YXK3904 ICU-C15) Document 06/09/19 00:00 SDU9040 (Rec: 06/09/19 00:13 LSS8331 ICU-C15) Document 06/09/19 01:00 MUA1770 (Rec: 06/09/19 02:37 TWU2490 ICU-C15) Document 06/09/19 02:00 WGE4504 (Rec: 06/09/19 02:37 FBU2493 ICU-C15) Document 06/09/19 03:00 QIO0673 (Rec: 06/09/19 03:16 WEC6022 ICU-M33) Document 06/09/19 04:00 OSU2322 (Rec: 06/09/19 04:14 REM5384 ICU-M33) Document 06/09/19 05:00 UTB5219 (Rec: 06/09/19 05:26 NBK8642 ICU-C15) Document 06/09/19 06:00 RZU5082 (Rec: 06/09/19 06:13 NYM2947 ICU-M33) Document 06/09/19 07:00 CCI2047 (Rec: 06/09/19 08:10 QBT7919 ICU-C15) Document 06/09/19 08:00 CHX9222 (Rec: 06/09/19 08:46 JKZ1846 IMG-C14) Document 06/09/19 09:00 KHG0018 (Rec: 06/09/19 10:41 PKH4106 ICU-M33) Document 06/09/19 10:00 IWO9681 (Rec: 06/09/19 10:41 XTT0739 ICU-M33) Document 06/09/19 11:00 YSE1943 (Rec: 06/09/19 14:08 VFW8423 ICU-C15) Document 06/09/19 12:00 MOF0961 (Rec: 06/09/19 14:08 PVH9827 ICU-C15) Document 06/09/19 13:00 HHE4519 (Rec: 06/09/19 14:09 ANB0507 ICU-C15) Document 06/09/19 14:00 LOZ1847 (Rec: 06/09/19 14:09 ZFJ9988 ICU-C15) Document 06/09/19 14:15 IYJ7078 (Rec: 06/09/19 15:11 DCN6680 ICU-C15) Document 06/09/19 15:00 MGQ5553 (Rec: 06/09/19 16:04 TQV6620 ICU-C10) Document 06/09/19 16:00 ZBA4795 (Rec: 06/09/19 16:04 UBH0790 ICU-C10) Document 06/09/19 17:00 CUD0988 (Rec: 06/09/19 17:21 HAT4675 ICU-C10) Document 06/09/19 18:00 ZPM5493 (Rec: 06/09/19 18:11 TTJ0175 ICU-C10) Document 06/09/19 18:51 RIH4768 (Rec: 06/09/19 18:51 CFB9648 ICU-M33) Document 06/09/19 20:00 PGV9644 (Rec: 06/09/19 21:05 LMW5643 ICU-M33) Document 06/09/19 21:00 ZST0509 (Rec: 06/09/19 21:05 QQW2950 ICU-M33) Document 06/09/19 22:00 XVG1004 (Rec: 06/09/19 22:10 BAD8441 ICU-C16) Document 06/09/19 22:56 JJO4627 (Rec: 06/09/19 22:56 AHU3873 ICU-C16) Document 06/10/19 00:00 SCT1426 (Rec: 06/10/19 00:25 DDG8398 ICU-M33) Document 06/10/19 01:00 OYZ6411 (Rec: 06/10/19 01:11 WRD4230 ICU-C16) Document 06/10/19 02:00 ABS3005 (Rec: 06/10/19 02:05 CXO5514 ICU-C16) Document 06/10/19 03:00 BCX9410 (Rec: 06/10/19 04:15 QZO8916 ICU-C12) Document 06/10/19 04:00 ERH7094 (Rec: 06/10/19 04:15 PDN7192 ICU-C12) Document 06/10/19 05:00 CCS6696 (Rec: 06/10/19 06:17 KSL5399 ICU-C16) Document 06/10/19 06:00 PTT9454 (Rec: 06/10/19 06:17 BYN1161 ICU-C16) Document 06/10/19 07:00 TQD2298 (Rec: 06/10/19 08:14 VCF1657 ICU-M33) Document 06/10/19 08:00 QVL6156 (Rec: 06/10/19 08:14 EVB2257 ICU-M33) Document 06/10/19 09:00 TYD7879 (Rec: 06/10/19 10:34 BRP4799 ICU-C25) Document 06/10/19 10:00 TBC9176 (Rec: 06/10/19 10:34 CAI9499 ICU-C25) Document 06/10/19 11:00 ISH4222 (Rec: 06/10/19 11:15 BCI0922 ICU-C25) Document 06/10/19 11:58 AFH2080 (Rec: 06/10/19 11:58 BYD3776 ICU-C14) Document 06/10/19 13:00 GVG9982 (Rec: 06/10/19 13:02 XRQ7338 ICU-C16) Document 06/10/19 14:00 OTS1384 (Rec: 06/10/19 14:23 RZA5940 ICU-M31) Document 06/10/19 15:00 GAI8978 (Rec: 06/10/19 17:20 FPQ9596 ICU-M33) Document 06/10/19 15:00 UNQ5530 (Rec: 06/10/19 17:29 TJL6049 ICU-M33) Document 06/10/19 16:00 IEZ8483 (Rec: 06/10/19 17:20 EFN3241 ICU-M33) Document 06/10/19 17:00 OEO4384 (Rec: 06/10/19 17:20 LOK7490 ICU-M33) Document 06/10/19 18:00 KCJ5258 (Rec: 06/10/19 18:22 ZZB9855 ICU-C25) Document 06/10/19 19:00 HBL5126 (Rec: 06/10/19 19:51 QQN5757 ICU-M33) Document 06/10/19 20:00 OMH4584 (Rec: 06/10/19 20:24 KLG5159 ICU-C15) Document 06/10/19 21:00 CSF2097 (Rec: 06/10/19 22:03 DVK4156 ICU-C15) Document 06/10/19 22:00 MVU6891 (Rec: 06/10/19 22:15 DNV0637 ICU-C15) Document 06/10/19 23:00 BGJ8662 (Rec: 06/10/19 23:29 PVV3974 ICU-C15) Document 06/11/19 00:00 RCX6152 (Rec: 06/11/19 00:31 XKA4423 ICU-C15) Document 06/11/19 01:00 QMC6062 (Rec: 06/11/19 01:27 GYI9501 ICU-C15) Document 06/11/19 02:00 OZN7781 (Rec: 06/11/19 02:25 QTR9773 ICU-C15) Document 06/11/19 03:00 XSY8523 (Rec: 06/11/19 03:11 AYV9616 ICU-C15) Document 06/11/19 04:00 TYE9697 (Rec: 06/11/19 04:21 OZR7597 ICU-M33) Document 06/11/19 05:00 DUD1125 (Rec: 06/11/19 05:23 UTW0155 ICU-C15) Document 06/11/19 06:00 JPX6118 (Rec: 06/11/19 06:13 WLC1123 ICU-C15) Document 06/11/19 07:00 YRY2627 (Rec: 06/11/19 08:10 GTN8867 ICU-C25) Document 06/11/19 08:00 RGU0281 (Rec: 06/11/19 08:10 KRR6125 ICU-C25) Document 06/11/19 09:00 BEP9941 (Rec: 06/11/19 11:33 SBS7111 ICU-C25) Document 06/11/19 10:00 RWN8402 (Rec: 06/11/19 11:33 NIB0006 ICU-C25) Document 06/11/19 11:00 FCJ9309 (Rec: 06/11/19 11:33 QSJ7071 ICU-C25) Intake and Output Start: 06/11/19 11: 54 Freq: DAILY@0600,1400,2200 Status: Active Protocol: Created 06/11/19 11:54 HRR5299 (Rec: 06/11/19 11:54 SCY1674 ICU-C25) Document 06/11/19 22:00 RME6050 (Rec: 06/11/19 22:37 YFV9662 MED-C11) Document 06/12/19 06:00 ESW2187 (Rec: 06/12/19 06:31 HVW2760 MED-C11) - Physical Exam General Physical Exam Comment: She is warm and well perfused, in no acute distress. She is conversational, but not insightful about her condition. General: No Cyanosis, No Jaundice, No Clubbing Lungs and Chest: Yes: Chest Expansion Full, Chest Expansion Symetrica, Vessicular Breath Sounds, Crackles - bibasilar, Wheezes - some coarse expiratory wheeze. No: Percussion Note Resonant - dull bases, Respiratory Distress, Use of Accessory Muscles Heart Rate and Rhythm: Regular Additional Cardiovascular: Yes: Normal Heart Sounds, Heart Murmur. No: Pedal Edema Abdominal Exam: Yes: Soft, Abdominal Tenderness, Bowel Sounds Present. No: Distention, Abdominal Mass, Hepatomegaly - right upper quadrant - mild, Splenomegaly, Guarding, Rebound Tenderness - Extremities Cranial Nerves II-XII Intact: Yes Limbs: Normal Power, Normal Tone, Normal Coordination - Neuro Orientation: Person, Place Psychiatric: Normal Speech: Dysphasia - subtle and longstanding Results - Results Lab Results: Laboratory Results - last 24 hr 06/11/19 06/12/19 06/12/19 12:39 05:55 05:55 WBC RBC Hgb Hct MCV MCH MCHC RDW Plt Count MPV INR (Anticoag Therapy) 1.97 H APTT 38.1 H Sodium Potassium Chloride Carbon Dioxide Anion Gap BUN Creatinine Est GFR ( Amer) Est GFR (Non-Af Amer) BUN/Creatinine Ratio Glucose POC Glucose (mg/dL) 139 H Calcium Total Bilirubin AST ALT Alkaline Phosphatase B-Natriuretic Peptide 824 H Total Protein Albumin Globulin Albumin/Globulin Ratio 06/12/19 06/12/19 05:55 05:55 WBC 10.9 H RBC 3.92 Hgb 10.9 L Hct 33 L MCV 84 MCH 28 MCHC 33 RDW 15 Plt Count 153 MPV 8.7 INR (Anticoag Therapy) APTT Sodium 139 Potassium 2.9 L Chloride 106 Carbon Dioxide 22 Anion Gap 11 BUN 50 H Creatinine 2.56 H Est GFR ( Amer) 21.9 Est GFR (Non-Af Amer) 18.1 BUN/Creatinine Ratio 19.5 Glucose 122 H POC Glucose (mg/dL) Calcium 8.0 L Total Bilirubin 2.50 H AST 818 H ALT 1847 H Alkaline Phosphatase 225 H B-Natriuretic Peptide Total Protein 5.0 L Albumin 2.6 L Globulin 2.4 Albumin/Globulin Ratio 1.1 Radiology Results: Patient Name: ELHAM CHOPRA Medical Record#: [id number] Ordering Physician: Kevin Walker MD Acct.#: [id number] : 1940 Age: 79 Sex: F Location: [facility] Exam Date: 06/11/19599 ADM Status: ADM IN Order Information: CHEST AP OR PORT Accession Number: [id number] CPT: 22644 HISTORY: CHF COMPARISONS: June 09, 2019 VIEWS: 1: frontal AP view of the chest at 6:05 AM FINDINGS: LINES AND TUBES: None. CARDIOMEDIASTINAL SILHOUETTE: The cardiac silhouette is mildly enlarged. The cardiomediastinal silhouette is otherwise normal for portable technique. PLEURA: The costophrenic angles are sharp. No pleural abnormalities are noted. LUNG PARENCHYMA: There is hyperinflation. There is a coarse pattern of reticular opacification. ABDOMEN: The upper abdomen is clear. There is no subphrenic gas. BONES AND SOFT TISSUES: Degenerative changes are noted. IMPRESSION: 1. CARDIOMEGALY. 2. HYPERINFLATION. 3. COARSE INTERSTITIAL PATTERN OF OPACIFICATION. THE DIFFERENTIAL INCLUDES PULMONARY INTERSTITIAL EDEMA VERSUS CHRONIC INTERSTITIAL LUNG DISEASE. <Electronically signed by Serafin Paige MD in [place]> 06/11/19728 Dictated By: Serafin Paige MD Dictated Date/Time: 06/11/19728 Transcribed Date/Time: 06/11/1928 Copy to: CC:Jigar Biswas MD; Timothy Fong MD; Jong Nicolas MD; Luz Irby MD; Kevin Walker MD Imaging - [facility] Imaging - [facility] Imaging - [facility] [address] [place] [id number] [place] [id number] [place] [id number] ph ([phone]) ph ([phone]) ph ([phone]) EKG Report: 06/09/2019 atrial fibrillation 103 QTc 491 QRS 82 Anterseptal Ischemic changes Assessment - Problem List Assessment: Patient Problems Acute myocardial infarction (Acute) Acute renal failure (Acute) CHF, acute (Acute) Ischemic hepatitis (Acute) Alcohol dependence (Chronic) Alcoholism (Chronic) Anticoagulated (Chronic) Atrial fibrillation (Chronic) COPD (chronic obstructive pulmonary disease) (Chronic) 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 I will re-engage cardiology. We need to be aware of the liver injury when selecting medication. Studying for viability of her myocardium is a prison issue. I have started her on the lowest dose of carvedilol. Acute renal failure (Acute) She has ATN and this is slowly recovering - we will watch her volume status carefully CHF, acute (Acute) She has some crackles/wheezing. I will watch her volume status - I am not sure how well she will respond to diuretic therapy. Ischemic hepatitis (Acute) Her liver enzymes are coming down. I will watch her synthetic ability. I note she has cirrhosis from her alcoholism most likely. Alcohol dependence (Chronic) Alcoholism (Chronic) I gave her clear indication of lifelong cessation from alcohol and I will reinforce this message (I have been doing this for years) Anticoagulated (Chronic) I will consider restarting anticoagulation - aspirin alone at present. I have started her on a heparin infusion - at present we can' t use lovenox due to her renal function. Atrial fibrillation (Chronic) Her rate is controlled COPD (chronic obstructive pulmonary disease) (Chronic) This is a component of her respiratory issues. Hypokalemia - I will replace. 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 I called her Kevin and told him she has been very sick.
[2019-06-12 09:36] LABS: Cytomegalovirus IgG Antibody Negative (Negative); Varicella IgG Antibody Index 4.2; Varicella-Zoster IgG Antibody Positive
[2019-06-12] MEDS: Heparin DRIP 25,000 UNITS(*) 25,000 UNITS/500 ML BAG IV SCH ×2 (10:56→17:49)
[2019-06-12] MEDS: Aspirin 81 mg CHEW TAB* 81 MG TAB.CHEW PO SCH (10:56)
[2019-06-12 14:17] LABS: Smooth Muscle Antibody Negative (Negative)
[2019-06-12 15:01] LABS: Herpes Simplex IgM Screen Negative (Negative)
[2019-06-12 16:11] LABS: Liver/Kidney Microsomes Ab <5.0 U
[2019-06-12] MEDS: Digoxin TAB* 0.125 MG PO SCH (17:49)
[2019-06-12] MEDS ORDERED: KCL 20 MEQ/100 ML IVPREMIX* 20 MEQ/100 ML BAG IV ONE (18:10)
[2019-06-12] MEDS: Carvedilol TAB* 3.125 MG PO SCH (20:52)
[2019-06-13 06:59] LABS: Hematocrit 34 % (35-47); Hemoglobin 11.5 g/dL (12.0-16.0); Mean Corpuscular HGB Conc 34 g/dL (31-36); Mean Corpuscular Hemoglobin 28 pg (27-31); Mean Corpuscular Volume 84 fL (80-97); Mean Platelet Volume 9.1 fL (7.4-10.4); Platelet Count 161 10^3/uL (150-450); Red Blood Count 4.09 10^6 /uL (3.70-4.87); Red Cell Distribution Width 15 % (10-15); White Blood Count 14.2 10^3/uL (3.5-10.8)
[2019-06-13 07:00] LABS: INR 1.51 (0.82-1.09)
[2019-06-13 07:16] LABS: Albumin 2.4 g/dL (3.2-5.2)
[2019-06-13 07:42] LABS: Calcium 7.8 mg/dL (8.6-10.3)
--- NOTE | 2019-06-13 08:14 | PN ---
Subjective - Subjective Reason for Note: Progress Note History: She continues to have a productive cough. She has no chest pain. She denies other sites of pain. She has no headache or neck stiffness. She denies shakes or chills. She is eating and drinking (according to the patient), but has loose stool. She is not oriented to time today (June 2020), but knows me by name. She is not able to give an account of herself. Active Problems: Active Problems Acute myocardial infarction (Acute) I21.9 Acute renal failure (Acute) CHF, acute (Acute) I50.9 Hypokalemia (Acute) E87.6 Ischemic hepatitis (Acute) K75.9 Leukocytosis (Acute) D72.829 Current Medications: Current Medications Aspirin (Aspirin 81 Mg Chew Tab*) 81 mg PO DAILY [facility] Last Admin: 06/12/19 10:56 Dose: 81 mg Carvedilol (Coreg Tab*) 3.125 mg PO BID [facility] Last Admin: 06/12/19 20:52 Dose: 3.125 mg Digoxin (Lanoxin Tab*) 0.125 mg PO QPM [facility] Last Admin: 06/12/19 17:49 Dose: 0.125 mg Heparin Sodium (Porcine) (Heparin Vial(*)) 0 units IV .BOLUS PRN PRN Reason: HEPARIN DRIP PROTOCOL Heparin Sodium/Dextrose (Heparin Drip 25,000 Units(*)) 25,000 units in 500 mls @ 0 mls/hr IV PER RATE [facility]; Protocol Last Admin: 06/12/19 17:49 Dose: 15 mls/hr Ondansetron HCl (Zofran Inj*) 4 mg IV Q6H PRN PRN Reason: NAUSEA/VOMITING Oxazepam (Serax Cap*) 10 mg PO Q8H PRN PRN Reason: ANXIETY - SEVERE Last Admin: 06/09/19 04:17 Dose: 10 mg Home Medications: Home Medications Medication Instructions Recorded Confirmed Type Digoxin TAB* [Lanoxin TAB*] 0.125 mg PO BID 11/14/17 06/08/19 History levETIRAcetam TAB* [Keppra TAB*] 750 mg PO BID tab 11/16/17 06/08/19 Rx Carvedilol TAB* [Coreg TAB*] 3.125 mg PO BID 03/10/18 06/08/19 History Aspirin 81 mg CHEW TAB* 81 mg PO DAILY 12/01/18 06/08/19 History Atorvastatin* [Lipitor 20 MG*] 20 mg PO BEDTIME 12/01/18 06/08/19 History Rivaroxaban TAB(*) [Xarelto 15 15 mg PO DAILY 12/01/18 06/08/19 History mg(*)] lamoTRIgine TAB(*) [Lamictal 100 mg PO BID 12/01/18 06/08/19 History TAB(*)] Allergies: Allergies Allergy/AdvReac Type Severity Reaction Status Date / Time No Known Allergies Allergy Verified 02/12/17 08:03 Objective - Vital Signs Vital Signs: Vital Signs 06/12/19 06/12/19 06/12/19 08:00 11:15 15:15 Temperature 98.6 F 98.9 F Pulse Rate 74 78 Respiratory 20 16 17 Rate Blood Pressure 117/61 113/64 (mmHg) O2 Sat by Pulse 100 99 Oximetry 06/12/19 06/12/19 06/12/19 19:11 20:00 23:04 Temperature 97.5 F 97.9 F Pulse Rate 72 92 Respiratory 20 18 18 Rate Blood Pressure 115/50 116/54 (mmHg) O2 Sat by Pulse 97 95 Oximetry 06/13/19 06/13/19 02:50 07:15 Temperature 99.9 F 97.2 F Pulse Rate 77 74 Respiratory 19 17 Rate Blood Pressure 126/72 144/74 (mmHg) O2 Sat by Pulse 96 96 Oximetry - Intake and Output Intake and Output: Intake & Output 06/10/19 06/11/19 06/12/19 06/13/19 11:59 11:59 11:59 11:59 Intake Total 2753 2067 240 240 Output Total 645 673 350 200 Balance 2108 1394 -110 40 Weight 124 lb 5.451 oz 127 lb 3.307 oz Intake: IV Fluids 2258 447 Acetylcysteine 489 Calcium Gluc 70 NS 1699 447 IVPB 223 62 ABX - CEFTRIAXONE 62 Acetylcysteine 223 Medicated IV 12 108 CC - Norepinephrine/ 12 108 Levophed Oral 160 1450 240 240 Albumin 100 Output: Urine 350 200 Joya 545 673 Liquid Stool 100 Other: Estimated Void Small Date of Last Bowel 06/10/19 06/10/19 Movement # Bowel Movements 2 1 0 0 Estimated Stool Amount Medium Medium # Voids 0 ADLs: Meal Record Start: 06/08/19 17: 12 Freq: 09,13,18 Status: Complete Protocol: Created 06/08/19 17:12 System (Rec: 06/08/19 17:12 System ICU-C15) Document 06/08/19 18:00 [id number] (Rec: 06/08/19 18:02 [id number] ICU-C15) Document 06/09/19 17:54 EBM4062 (Rec: 06/09/19 17:54 YPP1010 ICU-C10) Document 06/10/19 09:00 JSB4636 (Rec: 06/10/19 11:30 URK4520 ICU-C25) Document 06/10/19 13:00 UFM9072 (Rec: 06/10/19 18:17 EWN3315 ICU-C25) Document 06/10/19 18:00 JWR7001 (Rec: 06/10/19 19:47 NQH0590 ICU-C15) Document 06/11/19 09:00 TNV4963 (Rec: 06/11/19 11:50 QBM4166 ICU-C25) ADLs: Meal Record Start: 06/11/19 11: 54 Freq: DAILY@0900,1400,1800 Status: Active Protocol: Created 06/11/19 11:54 [id number] (Rec: 06/11/19 11:54 AHE1550 ICU-C25) Document 06/12/19 09:00 JXP8652 (Rec: 06/12/19 09:44 JLV6052 MED-C09) Document 06/12/19 14:00 UZN3129 (Rec: 06/12/19 15:15 HBT5104 MED-C02) Document 06/12/19 18:00 YKZ3864 (Rec: 06/12/19 18:32 YFS8038 MED-C02) Intake and Output Start: 06/08/19 12: 40 Freq: Status: Active Protocol: Created 06/08/19 12:40 System (Rec: 06/08/19 12:40 System [id number]) Intake and Output Start: 06/08/19 17: 12 Freq: Q1HR Status: Complete Protocol: Created 06/08/19 17:12 System (Rec: 06/08/19 17:12 System ICU-C15) Document 06/08/19 18:51 WGO8929 (Rec: 06/08/19 18:51 JOG5201 ICU-M29) Document 06/08/19 20:00 DWX2466 (Rec: 06/08/19 20:06 USJ2827 ICU-M33) Document 06/08/19 21:00 MOW3753 (Rec: 06/08/19 21:56 FSB6129 ICU-M33) Document 06/08/19 21:56 RWX0151 (Rec: 06/08/19 21:58 FTM1746 ICU-M33) Document 06/08/19 23:00 BSM5426 (Rec: 06/08/19 23:03 RID2470 ICU-C15) Document 06/09/19 00:00 CWM8853 (Rec: 06/09/19 00:13 MSO9697 ICU-C15) Document 06/09/19 01:00 EQS9354 (Rec: 06/09/19 02:37 BYA5425 ICU-C15) Document 06/09/19 02:00 IUB5760 (Rec: 06/09/19 02:37 WHQ8502 ICU-C15) Document 06/09/19 03:00 UMQ9582 (Rec: 06/09/19 03:16 ZVE6253 ICU-M33) Document 06/09/19 04:00 IQG2976 (Rec: 06/09/19 04:14 LWH8926 ICU-M33) Document 06/09/19 05:00 LLA2377 (Rec: 06/09/19 05:26 QCM6411 ICU-C15) Document 06/09/19 06:00 LFV5959 (Rec: 06/09/19 06:13 ICZ0629 ICU-M33) Document 06/09/19 07:00 URA6965 (Rec: 06/09/19 08:10 KVS2895 ICU-C15) Document 06/09/19 08:00 FTH2231 (Rec: 06/09/19 08:46 WBR9349 IMG-C14) Document 06/09/19 09:00 KSB4049 (Rec: 06/09/19 10:41 QXZ7359 ICU-M33) Document 06/09/19 10:00 UPA0493 (Rec: 06/09/19 10:41 XHD9770 ICU-M33) Document 06/09/19 11:00 YIU3832 (Rec: 06/09/19 14:08 VUD8539 ICU-C15) Document 06/09/19 12:00 IIH6358 (Rec: 06/09/19 14:08 RMF5704 ICU-C15) Document 06/09/19 13:00 ICC7298 (Rec: 06/09/19 14:09 JAH0070 ICU-C15) Document 06/09/19 14:00 UKB2990 (Rec: 06/09/19 14:09 OLD7359 ICU-C15) Document 06/09/19 14:15 JCV0196 (Rec: 06/09/19 15:11 XOM4764 ICU-C15) Document 06/09/19 15:00 JVG6026 (Rec: 06/09/19 16:04 ZNR2557 ICU-C10) Document 06/09/19 16:00 QNA1314 (Rec: 06/09/19 16:04 XIC5404 ICU-C10) Document 06/09/19 17:00 YWG1767 (Rec: 06/09/19 17:21 SFE7115 ICU-C10) Document 06/09/19 18:00 XBB6513 (Rec: 06/09/19 18:11 ZNF9077 ICU-C10) Document 06/09/19 18:51 GXV2728 (Rec: 06/09/19 18:51 SDX7245 ICU-M33) Document 06/09/19 20:00 VZG0569 (Rec: 06/09/19 21:05 RJL8422 ICU-M33) Document 06/09/19 21:00 GGT1240 (Rec: 06/09/19 21:05 LVQ7862 ICU-M33) Document 06/09/19 22:00 HRD4519 (Rec: 06/09/19 22:10 IXB2663 ICU-C16) Document 06/09/19 22:56 UXQ6168 (Rec: 06/09/19 22:56 YUV4059 ICU-C16) Document 06/10/19 00:00 PUY3713 (Rec: 06/10/19 00:25 WAE2491 ICU-M33) Document 06/10/19 01:00 IPP9546 (Rec: 06/10/19 01:11 CVO0684 ICU-C16) Document 06/10/19 02:00 KCJ8687 (Rec: 06/10/19 02:05 BHV5815 ICU-C16) Document 06/10/19 03:00 WRB2222 (Rec: 06/10/19 04:15 BAC2332 ICU-C12) Document 06/10/19 04:00 PQT0262 (Rec: 06/10/19 04:15 MMI2996 ICU-C12) Document 06/10/19 05:00 LMM3433 (Rec: 06/10/19 06:17 RNM9029 ICU-C16) Document 06/10/19 06:00 KEU7834 (Rec: 06/10/19 06:17 YUA2746 ICU-C16) Document 06/10/19 07:00 BTH7987 (Rec: 06/10/19 08:14 HNI6495 ICU-M33) Document 06/10/19 08:00 BYZ0832 (Rec: 06/10/19 08:14 ROT7369 ICU-M33) Document 06/10/19 09:00 JXX7227 (Rec: 06/10/19 10:34 AFN3025 ICU-C25) Document 06/10/19 10:00 BMN6105 (Rec: 06/10/19 10:34 MJK0820 ICU-C25) Document 06/10/19 11:00 UPX4174 (Rec: 06/10/19 11:15 RBX5098 ICU-C25) Document 06/10/19 11:58 LJT2359 (Rec: 06/10/19 11:58 VRU3222 ICU-C14) Document 06/10/19 13:00 OGC5407 (Rec: 06/10/19 13:02 ZKP4928 ICU-C16) Document 06/10/19 14:00 HTK4275 (Rec: 06/10/19 14:23 FTC7068 ICU-M31) Document 06/10/19 15:00 UGC1586 (Rec: 06/10/19 17:20 PMF3871 ICU-M33) Document 06/10/19 15:00 ZHU1747 (Rec: 06/10/19 17:29 SYQ8807 ICU-M33) Document 06/10/19 16:00 LIN2055 (Rec: 06/10/19 17:20 ZYF6761 ICU-M33) Document 06/10/19 17:00 RVK1361 (Rec: 06/10/19 17:20 OTT3588 ICU-M33) Document 06/10/19 18:00 QOM9149 (Rec: 06/10/19 18:22 FAQ2372 ICU-C25) Document 06/10/19 19:00 JRO9507 (Rec: 06/10/19 19:51 WAB8732 ICU-M33) Document 06/10/19 20:00 ODP2281 (Rec: 06/10/19 20:24 VFO4544 ICU-C15) Document 06/10/19 21:00 IOQ5795 (Rec: 06/10/19 22:03 EMV5453 ICU-C15) Document 06/10/19 22:00 IQV5177 (Rec: 06/10/19 22:15 MGF3442 ICU-C15) Document 06/10/19 23:00 UBV0863 (Rec: 06/10/19 23:29 HJJ2315 ICU-C15) Document 06/11/19 00:00 QJT6295 (Rec: 06/11/19 00:31 GQQ8051 ICU-C15) Document 06/11/19 01:00 LMJ0716 (Rec: 06/11/19 01:27 EGR2370 ICU-C15) Document 06/11/19 02:00 HPO7368 (Rec: 06/11/19 02:25 XFI8752 ICU-C15) Document 06/11/19 03:00 WWW5428 (Rec: 06/11/19 03:11 XGN1715 ICU-C15) Document 06/11/19 04:00 FWM2456 (Rec: 06/11/19 04:21 VRX5863 ICU-M33) Document 06/11/19 05:00 VXW5745 (Rec: 06/11/19 05:23 NDY3483 ICU-C15) Document 06/11/19 06:00 LDD3878 (Rec: 06/11/19 06:13 TPS5532 ICU-C15) Document 06/11/19 07:00 HIC6795 (Rec: 06/11/19 08:10 HEN2544 ICU-C25) Document 06/11/19 08:00 SWS8546 (Rec: 06/11/19 08:10 ULE1903 ICU-C25) Document 06/11/19 09:00 AFI1964 (Rec: 06/11/19 11:33 KLO6663 ICU-C25) Document 06/11/19 10:00 OUR1599 (Rec: 06/11/19 11:33 MIB9273 ICU-C25) Document 06/11/19 11:00 HMW5406 (Rec: 06/11/19 11:33 FOR8863 ICU-C25) Intake and Output Start: 06/11/19 11: 54 Freq: DAILY@0600,1400,2200 Status: Active Protocol: Created 06/11/19 11:54 TMO1034 (Rec: 06/11/19 11:54 KHI6598 ICU-C25) Document 06/11/19 22:00 CMJ8964 (Rec: 06/11/19 22:37 ZUX9140 MED-C11) Document 06/12/19 06:00 YWP7717 (Rec: 06/12/19 06:31 XWH5375 MED-C11) Document 06/12/19 14:00 WGI0447 (Rec: 06/12/19 15:15 WSQ2232 MED-C02) Document 06/12/19 22:00 EUV1658 (Rec: 06/12/19 23:33 ZBG0726 MED-C11) Document 06/13/19 05:03 HZC4626 (Rec: 06/13/19 05:04 AIU8525 MED-C11) Document 06/13/19 06:00 MQV2873 (Rec: 06/13/19 06:13 [id number] MED-C11) - Physical Exam General Physical Exam Comment: Warm and well perfused, she is not in acute distress. General: No Cyanosis, No Anemia, No Jaundice, No Clubbing Lungs and Chest: Yes: Chest Expansion Full, Chest Expansion Symetrica, Percussion Note Resonant, Wheezes - prolonged expiratory phase of respiration. No: Vessicular Breath Sounds - harsh breath sounds, Respiratory Distress, Use of Accessory Muscles Heart Rate and Rhythm: Irregular Additional Cardiovascular: Yes: Normal Heart Sounds. No: Heart Murmur, Pedal Edema Abdominal Exam: Yes: Soft, Bowel Sounds Present. No: Distention, Abdominal Tenderness - Extremities Cranial Nerves II-XII Intact: Yes Limbs: Normal Power - Neuro Orientation: Person Speech: Dysphasia - subtle expressive issues Results - Results Lab Results: Laboratory Results - last 24 hr 06/08/19 06/08/19 06/08/19 16:45 16:45 16:45 WBC RBC Hgb Hct MCV MCH MCHC RDW Plt Count MPV INR (Anticoag Therapy) APTT Sodium Chloride Carbon Dioxide BUN Glucose Calcium Total Bilirubin B-Natriuretic Peptide Albumin Anti-Smooth Muscle Ab Negative Liver/Kid Microsomes Ab <5.0 CMV IgG Ab Negative CMV IgM Ab Negative CMV Qnt PCR IU/mL Undetected EBV DNA (PCR) HSV IgM Ab Screen Negative VZV IgG Antibody Positive VZV IgG Ab Index 4.2 06/08/19 06/12/19 06/12/19 23:30 17:05 21:48 WBC RBC Hgb Hct MCV MCH MCHC RDW Plt Count MPV INR (Anticoag Therapy) APTT 86.3 H 68.2 H Sodium Chloride Carbon Dioxide BUN Glucose Calcium Total Bilirubin B-Natriuretic Peptide Albumin Anti-Smooth Muscle Ab Liver/Kid Microsomes Ab CMV IgG Ab CMV IgM Ab CMV Qnt PCR IU/mL EBV DNA (PCR) 125 A HSV IgM Ab Screen VZV IgG Antibody VZV IgG Ab Index 06/13/19 06/13/19 06/13/19 06:28 06:42 06:42 WBC 14.2 H RBC 4.09 Hgb 11.5 L Hct 34 L MCV 84 MCH 28 MCHC 34 RDW 15 Plt Count 161 MPV 9.1 INR (Anticoag Therapy) 1.51 H APTT Sodium 136 Chloride 107 Carbon Dioxide 12 L* BUN 48 H Glucose 126 H Calcium 7.8 L Total Bilirubin 2.00 H B-Natriuretic Peptide Albumin 2.4 L Anti-Smooth Muscle Ab Liver/Kid Microsomes Ab CMV IgG Ab CMV IgM Ab CMV Qnt PCR IU/mL EBV DNA (PCR) HSV IgM Ab Screen VZV IgG Antibody VZV IgG Ab Index 06/13/19 06/13/19 06:42 06:42 WBC RBC Hgb Hct MCV MCH MCHC RDW Plt Count MPV INR (Anticoag Therapy) APTT 77.5 H Sodium Chloride Carbon Dioxide BUN Glucose Calcium Total Bilirubin B-Natriuretic Peptide 959 H Albumin Anti-Smooth Muscle Ab Liver/Kid Microsomes Ab CMV IgG Ab CMV IgM Ab CMV Qnt PCR IU/mL EBV DNA (PCR) HSV IgM Ab Screen VZV IgG Antibody VZV IgG Ab Index Assessment - Problem List Assessment: Patient Problems Acute myocardial infarction (Acute) Acute renal failure (Acute) CHF, acute (Acute) Hypokalemia (Acute) Ischemic hepatitis (Acute) Leukocytosis (Acute) Alcohol dependence (Chronic) Alcoholism (Chronic) Anticoagulated (Chronic) Atrial fibrillation (Chronic) COPD (chronic obstructive pulmonary disease) (Chronic) 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 Not all the results are yet back, but she has developed an acidosis (low bicarbonate). I am going to obtain sputum for culture and blood cultures. I will check a CT chest to ensure she is not developing a pneumonia or other pathology. I will start her on piperacillin/tazobactam empirically. Acute myocardial infarction (Acute) CHF, acute (Acute) She has an elevated BNP and her lungs are wheezy - there may be some acute CHF. I will watch her volume carefully as she has impaired renal function. Her CMP is pending. Acute renal failure (Acute) Her BUN is 48, her CR pending Hypokalemia (Acute) I gave her an IV run of KCL 20 meq yesterday - I want to be careful in replacement as she has a low BMI and with her renal failure I could easily overshoot. 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 I will recheck her pro-calcitonin - this was elevated at presentation, but it may have been a false positive. I spoke with Kevin Patel - I discussed her resuscitation status with her . He would like her to be full code.
[2019-06-13] MEDS ORDERED: ZOSYN 3.375 GM x ONE DOSE over 30 miuntes IVPB ×2 (08:30)
[2019-06-13 08:33] LABS: Potassium 3.4 mmol/L (3.5-5.0)
[2019-06-13 08:34] LABS: Albumin/Globulin Ratio 0.7 (1-3); BUN/Creatinine Ratio 25.3 (8-20); C Reactive Protein 33.01 mg/L (<8.01); EGFR African American 30.9 (>60); EGFR Non-African American 25.5 (>60); Globulin 3.4 g/dL (2-4); Indirect Bilirubin 0.6 mg/dL (0.3-1.0); Total Protein 5.8 g/dL (6.4-8.9)
[2019-06-13] MEDS ORDERED: Zosyn per Pharmacy* NOTE FOLLOW UP SCH (09:00)
[2019-06-13 09:11] LABS: ABS Basophils 0.2 10^3/ul (0-0.2); ABS Eosinophils 1.2 10^3/ul (0-0.6); ABS Lymphocytes 1.7 10^3/ul (1.0-4.8); ABS Monocytes 1.4 10^3/ul (0-0.8); ABS Neutrophils 9.7 10^3/ul (1.5-7.7); Eosinophil % 8.1 %; Lymphocyte % 12.1 %; Nucleated Red Blood Cells % 0.1
[2019-06-13] MEDS: Carvedilol TAB* 3.125 MG PO SCH ×2 (10:45→21:53)
[2019-06-13] MEDS: Aspirin 81 mg CHEW TAB* 81 MG TAB.CHEW PO SCH (10:45)
--- NOTE | 2019-06-13 15:09 | PN ---
Subjective Date of Service: 06/13/19 - s/p multiorgan failure, hx afib. Interval History: Per pt breathing "irregular". Medications Active Medications: Aspirin (Aspirin 81 Mg Chew Tab*) 81 mg PO DAILY [facility] Last Admin: 06/13/19 10:45 Dose: 81 mg Carvedilol (Coreg Tab*) 3.125 mg PO BID [facility] Last Admin: 06/13/19 10:45 Dose: 3.125 mg Digoxin (Lanoxin Tab*) 0.125 mg PO QPM [facility] Last Admin: 06/12/19 17:49 Dose: 0.125 mg Heparin Sodium (Porcine) (Heparin Vial(*)) 0 units IV .BOLUS PRN PRN Reason: HEPARIN DRIP PROTOCOL Heparin Sodium/Dextrose (Heparin Drip 25,000 Units(*)) 25,000 units in 500 mls @ 0 mls/hr IV PER RATE [facility]; Protocol Last Admin: 06/12/19 17:49 Dose: 15 mls/hr Piperacillin Sod/Tazobactam (Sod 3.375 gm/ Sodium Chloride) 100 mls @ 25 mls/ hr IVPB Q8H [facility] Ondansetron HCl (Zofran Inj*) 4 mg IV Q6H PRN PRN Reason: NAUSEA/VOMITING Oxazepam (Serax Cap*) 10 mg PO Q8H PRN PRN Reason: ANXIETY - SEVERE Last Admin: 06/09/19 04:17 Dose: 10 mg Pharmacy Consult (Zosyn Per Pharmacy*) 1 note FOLLOW UP .ZOSYN PER PHARMACY [facility] Potassium Chloride (Klor Con Er Tab*) 20 meq PO BID [facility] Stop: 06/15/19 23:59 Objective Vital Signs: Temp Pulse Resp BP Pulse Ox 97.2 F 74 17 144/74 96 06/13/19 07:15 06/13/19 07:15 06/13/19 08:00 06/13/19 07:15 06/13/19 07:15 Oxygen Devices in Use Now: None Appearance: seated in chair, reading the newspaper, appears comfortable. Thin, appears undernourished. Eyes: PERRLA Ears/Nose/Mouth/Throat: Clear Oropharnyx Neck: NL Appearance and Movements; NL JVP Respiratory: Symmetrical Chest Expansion and Respiratory Effort - clear anteriorly, "junky" posteriorly. GI sounds heard in the thorax. Cardiovascular: NL Sounds; No Murmurs; No JVD - irregular. Rate controlled by auscultation and pulse. Abdominal: NL Sounds; No Tenderness; No Distention Extremities: - - thickened, no pitting edema. Laboratory Results: 06/13/19 06:42 06/13/19 06:28 INR (Anticoag Therapy) 1.51 (0.82-1.09) H 06/13/19 06:42 APTT 77.5 seconds (26.0-38.0) H 06/13/19 06:42 Total Bilirubin 2.00 mg/dL (0.2-1.0) H 06/13/19 06:28 Direct Bilirubin 1.40 mg/dL (0.03-0.18) H 06/13/19 06:28 Indirect Bilirubin 0.6 mg/dL (0.3-1.0) 06/13/19 06:28 AST 463 U/L (13-39) H 06/13/19 06:28 ALT 1542 U/L (7-52) H 06/13/19 06:28 Alkaline Phosphatase 283 U/L (34-104) H 06/13/19 06:28 CK-MB (CK-2) 7.8 ng/mL (0.6-6.3) H 06/08/19 12:38 B-Natriuretic Peptide 959 pg/mL (<=100) H 06/13/19 06:42 Total Protein 5.8 g/dL (6.4-8.9) L 06/13/19 06:28 Albumin 2.4 g/dL (3.2-5.2) L 06/13/19 06:28 Globulin 3.4 g/dL (2-4) 06/13/19 06:28 Albumin/Globulin Ratio 0.7 (1-3) L 06/13/19 06:28 Triglycerides 56 mg/dL 06/08/19 16:45 Cholesterol 116 mg/dL 06/08/19 16:45 LDL Cholesterol 72 mg/dL 06/08/19 16:45 HDL Cholesterol 33.2 mg/dL 06/08/19 16:45 TSH 4.59 mcIU/mL (0.34-5.60) 06/09/19 12:55 06/08/19 06/08/19 06/08/19 12:38 16:45 23:30 Troponin I 1.12 H* 2.10 H* 1.53 H* 06/09/19 06/10/19 06/11/19 05:30 04:30 04:45 Troponin I 2.33 H* 0.77 H* 0.22 H* Arterial Blood Gas Results ABG pH 7.34 (7.35-7.45) L 06/08/19 12:46 ABG pCO2 26 mmHg (35-45) L 06/08/19 12:46 ABG pO2 155 mmHg (80-100) H 06/08/19 12:46 ABG HCO3 17.1 mmol/L (19-31) L 06/08/19 12:46 ABG O2 Saturation 100.0 % (94.0-98.0) H 06/08/19 12:46 ABG Base Excess -10.1 mmol/L (-2.0-2.0) L 06/08/19 12:46 CRP 55 on admission Diagnostic Imaging: *[facility]* [place] [address] Fax #: [phone] Transthoracic Echocardiogram Patient: Abeba Chopra : 1940 Study Date: 06/08/2019 Age: 79 Conclusions Summary: 1. Left ventricle: The cavity size is normal. Systolic function is moderately reduced. The estimated ejection fraction is 35-40%. There is global hypokinesis. 2. Right ventricle: The cavity size is mildly dilated. Systolic function is moderately reduced. Pulmonary artery systolic pressure is not able to be accurately estimated. 3. Ventricular septum: There is septal flattening of the interventricular septum consistent with RV volume or pressure overload. 4. Left atrium: The atrium is severely dilated. 5. Right atrium: The atrium is mildly dilated. 6. Mitral valve: There is mild to moderate regurgitation. 7. Aortic valve: There is mild regurgitation. 8. Tricuspid valve: Mild to moderate reguritation ECHO [facility] 05/26/19: EF 55-60%, normal RV systolic function. Mild AI, mild to moderat MR, mild TR PA pr 36 mmHg. Patient Name: ABEBA CHOPRA Medical Record#: [id number] Ordering Physician: Jigar Biswas MD Acct.#: [id number] : 1940 Age: 79 Sex: F Location: [address] [place] [address] MEDICAL Exam Date: 06/13/19755 ADM Status: ADM IN Order Information: CT CHEST W/O Accession Number: [id number] CPT: 47667 Indication: Pneumonia versus CHF. CT of the chest performed without IV contrast. Coronal and sagittal reconstructed images were obtained. No IV contrast was given. Inferior thyroid lobes are unremarkable. No mediastinal or hilar adenopathy is noted. Cardiomegaly without evidence of pericardial effusion is noted. Emphysematous changes are noted in the lung mitchell. Bilateral pleural effusions are noted. In the right lower lobe posteriorly there is soft tissue density likely representing atelectasis as there is bronchiectasis with soft tissue material filling the bronchus. Underlying mass is not excluded. Left lower lobe demonstrates bronchiectasis with minimal scarring. Visualized abdominal organs are otherwise unremarkable. IMPRESSION: Cardiomegaly. There may be interstitial edema with bilateral pleural effusions. In the right lower lobe. Bronchiectasis with soft tissue within the bronchus causing atelectasis. This may represent a mucous plugging although underlying neoplasm and endobronchial lesion is not excluded and repeat exam after pulmonary toilet or bronchoscopy could BE performed. <Electronically signed by Perlita Farley MD in [place]> 06/13/19 1134 EKG Data: Afib, inverted T waves precordial leads (06/12/19). Assessment/Plan 79 yo admitted critically ill 06/08/19, 48 yours after return to a trip from [place] including fevers 103, marked elevation in transaminases >4000, ATN, new drop in EF from 2 weeks prior. ICU admission note reviewed. Dr Washington's note reviewed with thoughts all cardiac induced. Dr Simno's note reviewed and he felt acute ischemic hepatic injury. viral Hepatitis A, B, C ruled out, not felt to be due to statin or alcohol and he too felt a cardiac etiology and fatty liver contributing. Imaging reviewed including: - CT scan showing hepatosteatosis, -low probability V/Q, -Venous Dopplers negative for DVT. -CT 06/13/19 (see above) The patient was seen in our office 05/12/19 and felt to be stable and stable echo 05/26/19. She has chronic afib, old CVA related to Afib and history of excess alcohol intake. The high fevers and acute decrease in L+R heart function with a peak troponin of 2 don't fit with chronic decompensated CHF or acute TX as an etiology for liver and renal failure. INR's were theraputic making embolic TX, PE unlikely. I think something metabolic led to the weakening of the heart. With fevers, elevated CRP and marked transaminitis (ALT, AST, LDH > 11,000) ( and mild increase in lipase and ammonia 256) and current pulmonary exam in the setting of travel I would consider an underlying infection or inflammation leading to multi organ stress. If increase in LFT's is all cardiac, this represents marked RH failure much greater than left heart failure. I am uncertain if + EBV and zoster significant as these may be due to distant exposure, would defer to internal medicine/ID. Regarding cardiac issues: Afib: Chronic, continue with rate control with BB not metabolized in the kidneys. Continue digoxen for now. INR dropping off coumodin. Consider NOAC (Eliquis 2.5 BID) for stroke prevention. CM: Coreg noted. BUN + Cr high, hold on ACEI/ARB for now. Not a candidate for Aldactone now. Trops up, but mildly. Non urgent ischemic work up later. Supportive care of non cardiac issues ELevated BUN: Likely a combination of ATN, dehydration and I worry about her nutritional status. GI blood loss could also do this. Pulmonary: "junky" lungs, CT suggestive of bronchitis, defer to primary care. At potential risk for aspiration as well when acutly ill. Exam more c/w a pulmonary process than CHF/left heart failure, but will be at risk for CHF due to afib, CM and MR. Complex patient. Consider asking for ID imput. Consider updated echo next week to re evaluate LV, RV function, PA pressure, valve function. If any concern about infectious etiology/endocarditis we could perform a MIRIAM (but will be tricky, may need anaesthesia).
[2019-06-13 16:29] LABS: Varicella-Zoster IgM Antibody Negative (Negative)
[2019-06-13] MEDS: Digoxin TAB* 0.125 MG PO SCH (17:08)
[2019-06-13] MEDS: ZOSYN 3.375 GM Q8H per EXTENDED INFUSION IVPB SCH ×2 (17:08)
[2019-06-13] MEDS: Potassium Chlor TAB* 20 MEQ TAB.ER PO SCH (21:51)
[2019-06-13] MEDS: Heparin DRIP 25,000 UNITS(*) 25,000 UNITS/500 ML BAG IV SCH (22:03)
[2019-06-14] MEDS: ZOSYN 3.375 GM Q8H per EXTENDED INFUSION IVPB SCH ×4 (00:09→06:53)
[2019-06-14 06:27] LABS: Hematocrit 33 % (35-47); Mean Corpuscular HGB Conc 34 g/dL (31-36); Mean Corpuscular Hemoglobin 28 pg (27-31); Mean Corpuscular Volume 84 fL (80-97); Mean Platelet Volume 9.2 fL (7.4-10.4); Platelet Count 150 10^3/uL (150-450); Red Blood Count 3.89 10^6 /uL (3.70-4.87); Red Cell Distribution Width 16 % (10-15); White Blood Count 14.5 10^3/uL (3.5-10.8)
[2019-06-14 06:35] LABS: Activated Partial Thrombo Time 55.5 seconds (26.0-38.0); INR 1.37 (0.82-1.09)
[2019-06-14 06:46] LABS: Albumin 2.9 g/dL (3.2-5.2); BUN/Creatinine Ratio 26.3 (8-20); C Reactive Protein 26.37 mg/L (<8.01); Calcium 8.2 mg/dL (8.6-10.3); EGFR African American 37.6 (>60); EGFR Non-African American 31.1 (>60); Potassium 3.5 mmol/L (3.5-5.0); Total Bilirubin 2.5 mg/dL (0.2-1.0); Total Protein 5.9 g/dL (6.4-8.9)
--- NOTE | 2019-06-14 07:47 | PN ---
Subjective - Subjective Reason for Note: Progress Note History: I was concerned yesterday Abeba Chopra may have pneumonia. This was a clinical evaluation and due to a stepwise rise of her WBC. I started her on piperacillin/ Tazobactam. However, when the rest of her labs came through and also the CT scan of her chest - it seemed unlikely. Today she has some dyspnea, but is otherwise not experiencing any physical distress. She remains disoriented and is upset her Kevin didn't visit yesterday evening - she states she had problems contacting him. She denies any pain, fevers, sweats. Active Problems: Active Problems Acute myocardial infarction (Acute) I21.9 Acute renal failure (Acute) CHF, acute (Acute) I50.9 Hypokalemia (Acute) E87.6 Ischemic hepatitis (Acute) K75.9 Leukocytosis (Acute) D72.829 Current Medications: Current Medications Aspirin (Aspirin 81 Mg Chew Tab*) 81 mg PO DAILY [facility] Last Admin: 06/13/19 10:45 Dose: 81 mg Carvedilol (Coreg Tab*) 3.125 mg PO BID [facility] Last Admin: 06/13/19 21:53 Dose: 3.125 mg Digoxin (Lanoxin Tab*) 0.125 mg PO QPM [facility] Last Admin: 06/13/19 17:08 Dose: 0.125 mg Heparin Sodium (Porcine) (Heparin Vial(*)) 0 units IV .BOLUS PRN PRN Reason: HEPARIN DRIP PROTOCOL Heparin Sodium/Dextrose (Heparin Drip 25,000 Units(*)) 25,000 units in 500 mls @ 0 mls/hr IV PER RATE NIC; Protocol Last Admin: 06/13/19 22:03 Dose: 15 mls/hr Piperacillin Sod/Tazobactam (Sod 3.375 gm/ Sodium Chloride) 100 mls @ 25 mls/ hr IVPB Q8H [facility] Last Admin: 06/14/19 06:53 Dose: 25 mls/hr Ondansetron HCl (Zofran Inj*) 4 mg IV Q6H PRN PRN Reason: NAUSEA/VOMITING Oxazepam (Serax Cap*) 10 mg PO Q8H PRN PRN Reason: ANXIETY - SEVERE Last Admin: 06/09/19 04:17 Dose: 10 mg Pharmacy Consult (Zosyn Per Pharmacy*) 1 note FOLLOW UP .ZOSYN PER PHARMACY [facility] Potassium Chloride (Klor Con Er Tab*) 20 meq PO BID NIC Stop: 06/15/19 23:59 Last Admin: 06/13/19 21:51 Dose: 20 meq Home Medications: Home Medications Medication Instructions Recorded Confirmed Type Digoxin TAB* [Lanoxin TAB*] 0.125 mg PO BID 11/14/17 06/08/19 History levETIRAcetam TAB* [Keppra TAB*] 750 mg PO BID tab 11/16/17 06/08/19 Rx Carvedilol TAB* [Coreg TAB*] 3.125 mg PO BID 03/10/18 06/08/19 History Aspirin 81 mg CHEW TAB* 81 mg PO DAILY 12/01/18 06/08/19 History Atorvastatin* [Lipitor 20 MG*] 20 mg PO BEDTIME 12/01/18 06/08/19 History Rivaroxaban TAB(*) [Xarelto 15 15 mg PO DAILY 12/01/18 06/08/19 History mg(*)] lamoTRIgine TAB(*) [Lamictal 100 mg PO BID 12/01/18 06/08/19 History TAB(*)] Allergies: Allergies Allergy/AdvReac Type Severity Reaction Status Date / Time No Known Allergies Allergy Verified 02/12/17 08:03 Objective - Vital Signs Vital Signs: Vital Signs 06/13/19 06/13/19 06/13/19 08:00 11:15 15:15 Temperature 98.3 F 98.4 F Pulse Rate 72 Respiratory 16 16 16 Rate Blood Pressure 104/57 (mmHg) O2 Sat by Pulse 97 97 Oximetry 06/13/19 06/13/19 06/13/19 17:08 19:15 19:20 Temperature 97.3 F Pulse Rate 116 71 Respiratory 18 18 Rate Blood Pressure 103/49 (mmHg) O2 Sat by Pulse 97 Oximetry 06/13/19 06/14/19 06/14/19 22:41 02:52 07:15 Temperature 98.2 F 98.2 F 97.7 F Pulse Rate 91 90 81 Respiratory 18 18 20 Rate Blood Pressure 117/64 132/81 149/82 (mmHg) O2 Sat by Pulse 100 99 98 Oximetry - Intake and Output Intake and Output: Intake & Output 07/14/19 07/15/19 07/16/19 07/17/19 11:59 11:59 11:59 11:59 Intake Total 2067 643 136 2922 Output Total 673 350 200 Balance 1394 -143 125 6577 Weight 127 lb 3.307 oz Intake: IV Fluids 447 NS 447 IVPB 62 ABX - CEFTRIAXONE 62 Medicated IV 108 CC - Norepinephrine/ 108 Levophed Heparin 500 Oral 1450 379 975 4823 Output: Urine 350 200 Joya 673 Other: Estimated Void Medium Small Date of Last Bowel 06/10/19 06/14/19 Movement # Bowel Movements 1 0 1 2 Estimated Stool Amount Medium Medium Small # Voids 1 2 ADLs: Meal Record Start: 06/08/19 17: 12 Freq: ,,18 Status: Complete Protocol: Created 06/08/19 17:12 System (Rec: 06/08/19 17:12 System ICU-C15) Document 06/08/19 18:00 [id number] (Rec: 06/08/19 18:02 [id number] ICU-C15) Document 06/09/19 17:54 CBU9559 (Rec: 06/09/19 17:54 MRG2333 ICU-C10) Document 06/10/19 09:00 HVX6413 (Rec: 06/10/19 11:30 VGH4839 ICU-C25) Document 06/10/19 13:00 FSJ8357 (Rec: 06/10/19 18:17 KKX0736 ICU-C25) Document 06/10/19 18:00 MGM3419 (Rec: 06/10/19 19:47 VRP4710 ICU-C15) Document 06/11/19 09:00 XCJ1912 (Rec: 06/11/19 11:50 MGT0376 ICU-C25) ADLs: Meal Record Start: 06/11/19 11: 54 Freq: DAILY@0900,1400,1800 Status: Active Protocol: Created 06/11/19 11:54 PDF5430 (Rec: 06/11/19 11:54 WVH4072 ICU-C25) Document 06/12/19 09:00 TGK2364 (Rec: 06/12/19 09:44 RDO8871 MED-C09) Document 06/12/19 14:00 UQC1422 (Rec: 06/12/19 15:15 ZIB1256 MED-C02) Document 06/12/19 18:00 XHK2200 (Rec: 06/12/19 18:32 NCC2100 MED-C02) Document 06/13/19 09:00 AXE2214 (Rec: 06/13/19 09:20 MOW0685 MED-C02) Document 06/13/19 14:00 HFZ3324 (Rec: 06/13/19 14:12 NKM3434 MED-C02) Document 06/13/19 18:00 GBQ9861 (Rec: 06/13/19 18:30 SCH7815 MED-C02) Intake and Output Start: 06/08/19 12: 40 Freq: Status: Active Protocol: Created 06/08/19 12:40 System (Rec: 06/08/19 12:40 System [id number]-C04) Intake and Output Start: 06/08/19 17: 12 Freq: Q1HR Status: Complete Protocol: Created 06/08/19 17:12 System (Rec: 06/08/19 17:12 System ICU-C15) Document 06/08/19 18:51 MEC5036 (Rec: 06/08/19 18:51 IJO8085 ICU-M29) Document 06/08/19 20:00 DBS5368 (Rec: 06/08/19 20:06 DNP4289 ICU-M33) Document 06/08/19 21:00 HIM8652 (Rec: 06/08/19 21:56 VNW8651 ICU-M33) Document 06/08/19 21:56 FHG0281 (Rec: 06/08/19 21:58 YSI6997 ICU-M33) Document 06/08/19 23:00 PIQ1379 (Rec: 06/08/19 23:03 KHD2603 ICU-C15) Document 06/09/19 00:00 IFR5284 (Rec: 06/09/19 00:13 WRG9410 ICU-C15) Document 06/09/19 01:00 HWY3555 (Rec: 06/09/19 02:37 UBH6380 ICU-C15) Document 06/09/19 02:00 QHS8767 (Rec: 06/09/19 02:37 WED8540 ICU-C15) Document 06/09/19 03:00 PLF6764 (Rec: 06/09/19 03:16 ZWC6420 ICU-M33) Document 06/09/19 04:00 OOP2914 (Rec: 06/09/19 04:14 HSN3080 ICU-M33) Document 06/09/19 05:00 OYX1665 (Rec: 06/09/19 05:26 TLJ4768 ICU-C15) Document 06/09/19 06:00 YBM1475 (Rec: 06/09/19 06:13 KSO0662 ICU-M33) Document 06/09/19 07:00 PRQ5428 (Rec: 06/09/19 08:10 RZM3610 ICU-C15) Document 06/09/19 08:00 XLU0352 (Rec: 06/09/19 08:46 ETH2808 IMG-C14) Document 06/09/19 09:00 ANB9601 (Rec: 06/09/19 10:41 FRK7370 ICU-M33) Document 06/09/19 10:00 BWF8185 (Rec: 06/09/19 10:41 APA5523 ICU-M33) Document 06/09/19 11:00 HAG9794 (Rec: 06/09/19 14:08 HZK7943 ICU-C15) Document 06/09/19 12:00 YBY8561 (Rec: 06/09/19 14:08 AIK9225 ICU-C15) Document 06/09/19 13:00 TPF4649 (Rec: 06/09/19 14:09 JUT0069 ICU-C15) Document 06/09/19 14:00 JSS7325 (Rec: 06/09/19 14:09 MTE0222 ICU-C15) Document 06/09/19 14:15 LVX2715 (Rec: 06/09/19 15:11 GTY8099 ICU-C15) Document 06/09/19 15:00 EPM6074 (Rec: 06/09/19 16:04 BNH3017 ICU-C10) Document 06/09/19 16:00 HMV8514 (Rec: 06/09/19 16:04 EKK5159 ICU-C10) Document 06/09/19 17:00 XYC1994 (Rec: 06/09/19 17:21 BSW1883 ICU-C10) Document 06/09/19 18:00 WCS4129 (Rec: 06/09/19 18:11 GXR7155 ICU-C10) Document 06/09/19 18:51 JKJ4771 (Rec: 06/09/19 18:51 PYA3507 ICU-M33) Document 06/09/19 20:00 PTU7284 (Rec: 06/09/19 21:05 YEK0055 ICU-M33) Document 06/09/19 21:00 ZFE2436 (Rec: 06/09/19 21:05 HNM3691 ICU-M33) Document 06/09/19 22:00 PZT1708 (Rec: 06/09/19 22:10 OBU8239 ICU-C16) Document 06/09/19 22:56 XGC7728 (Rec: 06/09/19 22:56 UFL8824 ICU-C16) Document 06/10/19 00:00 JZT8484 (Rec: 06/10/19 00:25 RCL9631 ICU-M33) Document 06/10/19 01:00 BPS1920 (Rec: 06/10/19 01:11 UVS2341 ICU-C16) Document 06/10/19 02:00 AZI6618 (Rec: 06/10/19 02:05 FJO1789 ICU-C16) Document 06/10/19 03:00 IYT7710 (Rec: 06/10/19 04:15 RUH5971 ICU-C12) Document 06/10/19 04:00 KCN9445 (Rec: 06/10/19 04:15 NAF2535 ICU-C12) Document 06/10/19 05:00 PQC6968 (Rec: 06/10/19 06:17 JZM8731 ICU-C16) Document 06/10/19 06:00 GCI2122 (Rec: 06/10/19 06:17 OJV3917 ICU-C16) Document 06/10/19 07:00 OVZ6095 (Rec: 06/10/19 08:14 TRV5932 ICU-M33) Document 06/10/19 08:00 KAF8488 (Rec: 06/10/19 08:14 QFF7918 ICU-M33) Document 06/10/19 09:00 KPB4386 (Rec: 06/10/19 10:34 DXM8337 ICU-C25) Document 06/10/19 10:00 HSP9770 (Rec: 06/10/19 10:34 OJN7217 ICU-C25) Document 06/10/19 11:00 HXE0936 (Rec: 06/10/19 11:15 JOF4212 ICU-C25) Document 06/10/19 11:58 EPX5933 (Rec: 06/10/19 11:58 XVW1121 ICU-C14) Document 06/10/19 13:00 ELI1303 (Rec: 06/10/19 13:02 LQQ7702 ICU-C16) Document 06/10/19 14:00 WCE3467 (Rec: 06/10/19 14:23 ZUR4934 ICU-M31) Document 06/10/19 15:00 NHH0106 (Rec: 06/10/19 17:20 KHN4494 ICU-M33) Document 06/10/19 15:00 FXN3100 (Rec: 06/10/19 17:29 FBB0461 ICU-M33) Document 06/10/19 16:00 SVC8423 (Rec: 06/10/19 17:20 EBI1767 ICU-M33) Document 06/10/19 17:00 BHV7547 (Rec: 06/10/19 17:20 WLD0829 ICU-M33) Document 06/10/19 18:00 QGO0673 (Rec: 06/10/19 18:22 LCN3383 ICU-C25) Document 06/10/19 19:00 VPG7170 (Rec: 06/10/19 19:51 GJI7961 ICU-M33) Document 06/10/19 20:00 DCL4706 (Rec: 06/10/19 20:24 CYM7270 ICU-C15) Document 06/10/19 21:00 ZEY8855 (Rec: 06/10/19 22:03 UVN6179 ICU-C15) Document 06/10/19 22:00 REA1526 (Rec: 06/10/19 22:15 CGV4378 ICU-C15) Document 06/10/19 23:00 YBR0914 (Rec: 06/10/19 23:29 UDH9453 ICU-C15) Document 06/11/19 00:00 CKE2561 (Rec: 06/11/19 00:31 STB0970 ICU-C15) Document 06/11/19 01:00 OOO7058 (Rec: 06/11/19 01:27 HLT1562 ICU-C15) Document 06/11/19 02:00 EHN4167 (Rec: 06/11/19 02:25 XBR3371 ICU-C15) Document 06/11/19 03:00 PQN1285 (Rec: 06/11/19 03:11 IFD1011 ICU-C15) Document 06/11/19 04:00 BWM5486 (Rec: 06/11/19 04:21 CAL9751 ICU-M33) Document 06/11/19 05:00 FRD9637 (Rec: 06/11/19 05:23 OMA9490 ICU-C15) Document 06/11/19 06:00 SBR8367 (Rec: 06/11/19 06:13 QTJ5941 ICU-C15) Document 06/11/19 07:00 SBG3740 (Rec: 06/11/19 08:10 DGQ1347 ICU-C25) Document 06/11/19 08:00 QAC4382 (Rec: 06/11/19 08:10 NLE7554 ICU-C25) Document 06/11/19 09:00 XJJ3769 (Rec: 06/11/19 11:33 CDD7519 ICU-C25) Document 06/11/19 10:00 RQH2742 (Rec: 06/11/19 11:33 QAI8993 ICU-C25) Document 06/11/19 11:00 OYO0789 (Rec: 06/11/19 11:33 VOE3433 ICU-C25) Intake and Output Start: 06/11/19 11: 54 Freq: DAILY@0600,1400,2200 Status: Active Protocol: Created 06/11/19 11:54 URE3977 (Rec: 06/11/19 11:54 ZEZ2069 ICU-C25) Document 06/11/19 22:00 HFE5165 (Rec: 06/11/19 22:37 CFL9505 MED-C11) Document 06/12/19 06:00 XGQ3381 (Rec: 06/12/19 06:31 SJK8662 MED-C11) Document 06/12/19 14:00 EUI8162 (Rec: 06/12/19 15:15 FOJ6863 MED-C02) Document 06/12/19 22:00 GAM1272 (Rec: 06/12/19 23:33 RWC3948 MED-C11) Document 06/13/19 05:03 WUV4560 (Rec: 06/13/19 05:04 LHN1741 MED-C11) Document 06/13/19 06:00 QOO2972 (Rec: 06/13/19 06:13 BPV1889 MED-C11) Document 06/13/19 14:00 DLX8745 (Rec: 06/13/19 14:12 UGV4034 MED-C02) Document 06/13/19 22:00 WZK9845 (Rec: 06/13/19 22:11 LFL1172 MED-C26) Document 06/14/19 05:01 BNT6677 (Rec: 06/14/19 05:02 BXC7933 MED-C26) - Physical Exam General Physical Exam Comment: She has dry lips, but moist mucus membranes. She is not in any acute distress. There is tachypnea and she is using accessory muscles of respiration - she has no O2 by NC. General: No Cyanosis, No Anemia, No Jaundice, No Clubbing Lungs and Chest: Yes: Chest Expansion Full, Chest Expansion Symetrica, Percussion Note Resonant, Vessicular Breath Sounds, Crackles, Wheezes, Respiratory Distress, Use of Accessory Muscles Heart Rate and Rhythm: Irregular JVP: Elevated - distended - but no pattern dt atrial fib Additional Cardiovascular: Yes: Normal Heart Sounds. No: Heart Murmur, Pedal Edema Abdominal Exam: Yes: Soft, Bowel Sounds Present. No: Distention, Abdominal Tenderness Results - Results Lab Results: Laboratory Results - last 24 hr 06/08/19 06/13/19 06/13/19 16:45 06:28 06:42 WBC RBC Hgb Hct MCV MCH MCHC RDW Plt Count MPV Neut % (Auto) 68.6 Lymph % (Auto) 12.1 [place] % (Auto) 9.8 Eos % (Auto) 8.1 Baso % (Auto) 1.4 Absolute Neuts (auto) 9.7 H Absolute Lymphs (auto) 1.7 Absolute Monos (auto) 1.4 H Absolute Eos (auto) 1.2 H Absolute Basos (auto) 0.2 Absolute Nucleated RBC 0.0 Nucleated RBC % 0.1 INR (Anticoag Therapy) APTT Sodium 136 Potassium 3.4 L Chloride 107 Carbon Dioxide 20 L Anion Gap 9 BUN 48 H Creatinine 1.90 H Est GFR ( Amer) 30.9 Est GFR (Non-Af Amer) 25.5 BUN/Creatinine Ratio 25.3 H Glucose 126 H Calcium 7.8 L Total Bilirubin 2.00 H Direct Bilirubin 1.40 H Indirect Bilirubin 0.6 AST 463 H ALT 1542 H Alkaline Phosphatase 283 H C-Reactive Protein 33.01 H B-Natriuretic Peptide Total Protein 5.8 L Albumin 2.4 L Globulin 3.4 Albumin/Globulin Ratio 0.7 L VZV IgM Antibody Negative 06/14/19 06/14/19 06/14/19 06:20 06:20 06:20 WBC 14.5 H RBC 3.89 Hgb 11.0 L Hct 33 L MCV 84 MCH 28 MCHC 34 RDW 16 H Plt Count 150 MPV 9.2 Neut % (Auto) Lymph % (Auto) [place] % (Auto) Eos % (Auto) Baso % (Auto) Absolute Neuts (auto) Absolute Lymphs (auto) Absolute Monos (auto) Absolute Eos (auto) Absolute Basos (auto) Absolute Nucleated RBC Nucleated RBC % INR (Anticoag Therapy) 1.37 H APTT 55.5 H Sodium 140 Potassium 3.5 Chloride 107 Carbon Dioxide 22 Anion Gap 11 BUN 42 H Creatinine 1.60 H Est GFR ( Amer) 37.6 Est GFR (Non-Af Amer) 31.1 BUN/Creatinine Ratio 26.3 H Glucose 134 H Calcium 8.2 L Total Bilirubin 2.50 H Direct Bilirubin 1.50 H Indirect Bilirubin 1.0 AST 226 H ALT Alkaline Phosphatase 252 H C-Reactive Protein 26.37 H B-Natriuretic Peptide Total Protein 5.9 L Albumin 2.9 L Globulin 3.0 Albumin/Globulin Ratio 1.0 VZV IgM Antibody 06/14/19 06:20 WBC RBC Hgb Hct MCV MCH MCHC RDW Plt Count MPV Neut % (Auto) Lymph % (Auto) [place] % (Auto) Eos % (Auto) Baso % (Auto) Absolute Neuts (auto) Absolute Lymphs (auto) Absolute Monos (auto) Absolute Eos (auto) Absolute Basos (auto) Absolute Nucleated RBC Nucleated RBC % INR (Anticoag Therapy) APTT Sodium Potassium Chloride Carbon Dioxide Anion Gap BUN Creatinine Est GFR ( Amer) Est GFR (Non-Af Amer) BUN/Creatinine Ratio Glucose Calcium Total Bilirubin Direct Bilirubin Indirect Bilirubin AST ALT Alkaline Phosphatase C-Reactive Protein B-Natriuretic Peptide 1011 H Total Protein Albumin Globulin Albumin/Globulin Ratio VZV IgM Antibody Radiology Results: Patient Name: ABEBA CHOPRA Medical Record#: [id number] Ordering Physician: Jigar Biswas MD Acct.#: [id number] : 1940 Age: 79 Sex: F Location: [address] [place] [address] MEDICAL Exam Date: 06/13/19 075 ADM Status: ADM IN Order Information: CT CHEST W/O Accession Number: [id number] CPT: 86996 Indication: Pneumonia versus CHF. CT of the chest performed without IV contrast. Coronal and sagittal reconstructed images were obtained. No IV contrast was given. Inferior thyroid lobes are unremarkable. No mediastinal or hilar adenopathy is noted. Cardiomegaly without evidence of pericardial effusion is noted. Emphysematous changes are noted in the lung mitchell. Bilateral pleural effusions are noted. In the right lower lobe posteriorly there is soft tissue density likely representing atelectasis as there is bronchiectasis with soft tissue material filling the bronchus. Underlying mass is not excluded. Left lower lobe demonstrates bronchiectasis with minimal scarring. Visualized abdominal organs are otherwise unremarkable. IMPRESSION: Cardiomegaly. There may be interstitial edema with bilateral pleural effusions. In the right lower lobe. Bronchiectasis with soft tissue within the bronchus causing atelectasis. This may represent a mucous plugging although underlying neoplasm and endobronchial lesion is not excluded and repeat exam after pulmonary toilet or bronchoscopy could BE performed. <Electronically signed by Perlita Farley MD in [place]> 06/13/19 1134 Dictated By: Perlita Farley MD Dictated Date/Time: 06/13/19 1134 Transcribed Date/Time: 06/13/19 1107 Copy to: CC:Jigar Biswas MD; Timothy Fong MD; Jong Nicolas MD; Luz Irby MD Imaging - [facility] Imaging - [facility] Imaging - [facility] [address] [address] ph ([phone]) ph ([phone]) ph ([phone]) This report is only to be considered final once signed by the Provider(s) as displayed in the "<Electronically Signed by >" field (s). Absence of a signature indicates the report is in a draft status and still needs to be finalized. In the event this document was created by someone other than the signing Provider, the individual initiating the document will be listed in the "Entered by:" or "Dictated by:" mitchell. 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 Reema Santana's consultation. CHF, acute (Acute)COPD (chronic obstructive pulmonary disease) (Chronic) She has marked expiratory wheeze - this may be a mixture of CHF and exacerbated COPD. I think we have ruled out pneumonia. I will stop her IV antibacterials as I am concerned about salt load and lack of need. Acute renal failure (Acute) she is showing recovery of acute tubular necrosis - I will start diuretic therapy. Hypokalemia (Acute) Her K is below 4.0 and I will continue replacement Ischemic hepatitis (Acute) Her LFTs are improving - her albumin is improved compared with yesterday - I think this suggests (I hope) recovering synthetic ability Leukocytosis (Acute) Ongoing - but her %neuts are normal - so I am not particularly concerned Anticoagulated (Chronic) I prefer heparin for the moment until I am convinced her liver has recovered sufficiently. 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 I also discussed this on the phone with Kevin Chopra.
[2019-06-14] MEDS ORDERED: Levalbuterol 0.63MG/3ML NEB* UNIT OF USE INH PRN (07:56)
[2019-06-14 08:18] LABS: ABS Basophils 0.1 10^3/ul (0-0.2); ABS Eosinophils 1.2 10^3/ul (0-0.6); ABS Lymphocytes 1.5 10^3/ul (1.0-4.8); ABS Monocytes 1.6 10^3/ul (0-0.8); ABS Neutrophils 9.6 10^3/ul (1.5-7.7); Eosinophil % 8.3 %
[2019-06-14] MEDS: Potassium Chlor TAB* 20 MEQ TAB.ER PO SCH ×2 (09:36→23:11)
[2019-06-14] MEDS: Aspirin 81 mg CHEW TAB* 81 MG TAB.CHEW PO SCH (09:36)
[2019-06-14] MEDS: Carvedilol TAB* 3.125 MG PO SCH ×2 (09:36→23:11)
[2019-06-14] MEDS: Furosemide IV* 10 MG/ML 2 ML VIAL (20 MG) IV SCH ×2 (09:37→23:11)
[2019-06-14] MEDS: Digoxin TAB* 0.125 MG PO SCH (18:30)
--- NOTE | 2019-06-14 23:28 | PN ---
Subjective Date of Service: 06/14/19 - CC: per nurses diarrhea and not sleeping Interval History: the patient was lying flat, resting, at bedside. No new c/o. Per nursing new diarrhea and the patient unable to sleep. Medications Active Medications: Aspirin (Aspirin 81 Mg Chew Tab*) 81 mg PO DAILY [facility] Last Admin: 06/14/19 09:36 Dose: 81 mg Carvedilol (Coreg Tab*) 3.125 mg PO BID [facility] Last Admin: 06/14/19 09:36 Dose: 3.125 mg Digoxin (Lanoxin Tab*) 0.125 mg PO QPM [facility] Last Admin: 06/14/19 18:30 Dose: 0.125 mg Furosemide (Lasix Iv*) 20 mg IV BID [facility] Last Admin: 06/14/19 09:37 Dose: 20 mg Heparin Sodium (Porcine) (Heparin Vial(*)) 0 units IV .BOLUS PRN PRN Reason: HEPARIN DRIP PROTOCOL Heparin Sodium/Dextrose (Heparin Drip 25,000 Units(*)) 25,000 units in 500 mls @ 0 mls/hr IV PER RATE [facility]; Protocol Last Admin: 06/13/19 22:03 Dose: 15 mls/hr Levalbuterol HCl (Xopenex 0.63mg/3ml Neb*) 0.31 mg INH Q6H PRN PRN Reason: SOB/WHEEZING Ondansetron HCl (Zofran Inj*) 4 mg IV Q6H PRN PRN Reason: NAUSEA/VOMITING Oxazepam (Serax Cap*) 10 mg PO Q8H PRN PRN Reason: ANXIETY - SEVERE Last Admin: 06/09/19 04:17 Dose: 10 mg Potassium Chloride (Klor Con Er Tab*) 20 meq PO BID [facility] Stop: 06/15/19 23:59 Last Admin: 06/14/19 09:36 Dose: 20 meq Objective Vital Signs: Temp Pulse Resp BP Pulse Ox 97.6 F 89 28 122/65 96 06/14/19 15:15 06/14/19 18:30 06/14/19 15:15 06/14/19 15:15 06/14/19 15:15 Oxygen Devices in Use Now: None Appearance: lying flat, no distress, petite, thin. Eyes: PERRLA Ears/Nose/Mouth/Throat: Clear Oropharnyx Neck: No Thyroid Enlargement, Masses Respiratory: Symmetrical Chest Expansion and Respiratory Effort - diffuse rhonchi, do not clear with cough. Progressed c/w yesterday. Cardiovascular: - - irregular, soft SM LSB. Abdominal: NL Sounds; No Tenderness; No Distention Extremities: - - thickened, no pitting edema. Laboratory Results: 06/14/19 06:20 06/14/19 06:20 INR (Anticoag Therapy) 1.37 (0.82-1.09) H 06/14/19 06:20 APTT 55.5 seconds (26.0-38.0) H 06/14/19 06:20 Total Bilirubin 2.50 mg/dL (0.2-1.0) H 06/14/19 06:20 Direct Bilirubin 1.50 mg/dL (0.03-0.18) H 06/14/19 06:20 Indirect Bilirubin 1.0 mg/dL (0.3-1.0) 06/14/19 06:20 AST 226 U/L (13-39) H 06/14/19 06:20 ALT 1071 U/L (7-52) H 06/14/19 06:20 Alkaline Phosphatase 252 U/L (34-104) H 06/14/19 06:20 CK-MB (CK-2) 7.8 ng/mL (0.6-6.3) H 06/08/19 12:38 B-Natriuretic Peptide 1011 pg/mL (<=100) H 06/14/19 06:20 Total Protein 5.9 g/dL (6.4-8.9) L 06/14/19 06:20 Albumin 2.9 g/dL (3.2-5.2) L 06/14/19 06:20 Globulin 3.0 g/dL (2-4) 06/14/19 06:20 Albumin/Globulin Ratio 1.0 (1-3) 06/14/19 06:20 Triglycerides 56 mg/dL 06/08/19 16:45 Cholesterol 116 mg/dL 06/08/19 16:45 LDL Cholesterol 72 mg/dL 06/08/19 16:45 HDL Cholesterol 33.2 mg/dL 06/08/19 16:45 TSH 4.59 mcIU/mL (0.34-5.60) 06/09/19 12:55 06/08/19 06/08/19 06/08/19 12:38 16:45 23:30 Troponin I 1.12 H* 2.10 H* 1.53 H* 06/09/19 06/10/19 06/11/19 05:30 04:30 04:45 Troponin I 2.33 H* 0.77 H* 0.22 H* Diagnostic Imaging: *[facility]* [place] [address] Fax #: [phone] Transthoracic Echocardiogram Patient: Abeba Chopra : 1940 Study Date: 06/08/2019 Age: 79 Conclusions Summary: 1. Left ventricle: The cavity size is normal. Systolic function is moderately reduced. The estimated ejection fraction is 35-40%. There is global hypokinesis. 2. Right ventricle: The cavity size is mildly dilated. Systolic function is moderately reduced. Pulmonary artery systolic pressure is not able to be accurately estimated. 3. Ventricular septum: There is septal flattening of the interventricular septum consistent with RV volume or pressure overload. 4. Left atrium: The atrium is severely dilated. 5. Right atrium: The atrium is mildly dilated. 6. Mitral valve: There is mild to moderate regurgitation. 7. Aortic valve: There is mild regurgitation. 8. Tricuspid valve: Mild to moderate reguritation [facility] 05/26/19: EF 55-60%, normal RV systolic function. Mild AI, mild to moderat MR, mild TR PA pr 36 mmHg. Patient Name: ABEBA CHOPRA Medical Record#: [id number] Ordering Physician: Jgiar Biswas MD Acct.#: [id number] : 1940 Age: 79 Sex: F Location: [address] [place] [address] Exam Date: 06/13/19 0756 ADM Status: ADM IN Order Information: CT CHEST W/O Accession Number: [id number] CPT: 86220 Indication: Pneumonia versus CHF. CT of the chest performed without IV contrast. Coronal and sagittal reconstructed images were obtained. No IV contrast was given. Inferior thyroid lobes are unremarkable. No mediastinal or hilar adenopathy is noted. Cardiomegaly without evidence of pericardial effusion is noted. Emphysematous changes are noted in the lung mitchell. Bilateral pleural effusions are noted. In the right lower lobe posteriorly there is soft tissue density likely representing atelectasis as there is bronchiectasis with soft tissue material filling the bronchus. Underlying mass is not excluded. Left lower lobe demonstrates bronchiectasis with minimal scarring. Visualized abdominal organs are otherwise unremarkable. IMPRESSION: Cardiomegaly. There may be interstitial edema with bilateral pleural effusions. In the right lower lobe. Bronchiectasis with soft tissue within the bronchus causing atelectasis. This may represent a mucous plugging although underlying neoplasm and endobronchial lesion is not excluded and repeat exam after pulmonary toilet or bronchoscopy could BE performed. <Electronically signed by Perlita Farley MD in [place]> 06/13/19 1134 EKG Data: Afib, inverted T waves precordial leads (06/12/19). Assessment/Plan 79 yo admitted critically ill 06/08/19, 48 yours after return to a trip from [place] including fevers 103, marked elevation in transaminases >4000, ATN, new drop in EF from 2 weeks prior. Now with abnormal lung exam, diarhea since antibiotics started. The patient is not sleeping. LFT's improving slowly. BUN/Cr not showing improvement. Afib: Chronic, continue with rate control with BB not metabolized in the kidneys. Continue COreg. OK to stop digoxen to allow for increase in Coreg for pulse. Consider NOAC (Eliquis 2.5BID) for stroke prevention. CM: Coreg noted, consider increasing. Wait until kidney function improves to start ACEI / ARB Non urgent nicole myoview to evaluate for possible ischemia. Pulmonary: On antibiotics. Possible contribution of CHF. Complex patient. See my note from 06/13/19 (completed).
[2019-06-15] MEDS: Heparin DRIP 25,000 UNITS(*) 25,000 UNITS/500 ML BAG IV SCH (07:35)
[2019-06-15 07:56] LABS: Hematocrit 34 % (35-47); Hemoglobin 11.3 g/dL (12.0-16.0); Mean Corpuscular HGB Conc 33 g/dL (31-36); Mean Corpuscular Hemoglobin 28 pg (27-31); Mean Corpuscular Volume 85 fL (80-97); Mean Platelet Volume 9.6 fL (7.4-10.4); Platelet Count 177 10^3/uL (150-450); Red Blood Count 3.99 10^6 /uL (3.70-4.87); Red Cell Distribution Width 16 % (10-15); White Blood Count 15.5 10^3/uL (3.5-10.8)
[2019-06-15 07:59] LABS: ABS Basophils 0.2 10^3/ul (0-0.2); ABS Eosinophils 0.6 10^3/ul (0-0.6); ABS Lymphocytes 1.9 10^3/ul (1.0-4.8); ABS Monocytes 1.9 10^3/ul (0-0.8); ABS Neutrophils 10.9 10^3/ul (1.5-7.7); Eosinophil % 4.2 %; Lymphocyte % 12.4 %
--- NOTE | 2019-06-15 08:16 | PN ---
Subjective - Subjective Reason for Note: Progress Note History: Abeba Patel is looking disconsolate this morning. She has difficulty expressing how she is feeling, but looks upset. She acknowledges she is dyspneic, however, she denies any pain. She has a cough. I gave her parental furosemide yesterday, but it is difficult to ascertain if she had a diuresis. She denies fevers, chills, digest or urinary problems Active Problems: Active Problems Acute myocardial infarction (Acute) I21.9 Acute renal failure (Acute) CHF, acute (Acute) I50.9 Hypokalemia (Acute) E87.6 Ischemic hepatitis (Acute) K75.9 Leukocytosis (Acute) D72.829 Respiratory distress (Acute) R06.03 Current Medications: Current Medications Aspirin (Aspirin 81 Mg Chew Tab*) 81 mg PO DAILY [facility] Last Admin: 06/14/19 09:36 Dose: 81 mg Carvedilol (Coreg Tab*) 3.125 mg PO BID [facility] Last Admin: 06/14/19 23:11 Dose: 3.125 mg Digoxin (Lanoxin Tab*) 0.125 mg PO QPM [facility] Last Admin: 06/14/19 18:30 Dose: 0.125 mg Furosemide (Lasix Iv*) 20 mg IV BID [facility] Last Admin: 06/14/19 23:11 Dose: 20 mg Heparin Sodium (Porcine) (Heparin Vial(*)) 0 units IV .BOLUS PRN PRN Reason: HEPARIN DRIP PROTOCOL Heparin Sodium/Dextrose (Heparin Drip 25,000 Units(*)) 25,000 units in 500 mls @ 0 mls/hr IV PER RATE [facility]; Protocol Last Admin: 06/15/19 07:35 Dose: 15 mls/hr Levalbuterol HCl (Xopenex 0.63mg/3ml Neb*) 0.31 mg INH Q6H PRN PRN Reason: SOB/WHEEZING Ondansetron HCl (Zofran Inj*) 4 mg IV Q6H PRN PRN Reason: NAUSEA/VOMITING Oxazepam (Serax Cap*) 10 mg PO Q8H PRN PRN Reason: ANXIETY - SEVERE Last Admin: 06/09/19 04:17 Dose: 10 mg Potassium Chloride (Klor Con Er Tab*) 20 meq PO BID [facility] Stop: 06/15/19 23:59 Last Admin: 06/14/19 23:11 Dose: 20 meq Home Medications: Home Medications Medication Instructions Recorded Confirmed Type Digoxin TAB* [Lanoxin TAB*] 0.125 mg PO BID 11/14/17 06/08/19 History levETIRAcetam TAB* [Keppra TAB*] 750 mg PO BID tab 11/16/17 06/08/19 Rx Carvedilol TAB* [Coreg TAB*] 3.125 mg PO BID 03/10/18 06/08/19 History Aspirin 81 mg CHEW TAB* 81 mg PO DAILY 12/01/18 06/08/19 History Atorvastatin* [Lipitor 20 MG*] 20 mg PO BEDTIME 12/01/18 06/08/19 History Rivaroxaban TAB(*) [Xarelto 15 15 mg PO DAILY 12/01/18 06/08/19 History mg(*)] lamoTRIgine TAB(*) [Lamictal 100 mg PO BID 12/01/18 06/08/19 History TAB(*)] Allergies: Allergies Allergy/AdvReac Type Severity Reaction Status Date / Time No Known Allergies Allergy Verified 02/12/17 08:03 Objective - Vital Signs Vital Signs: Vital Signs 06/14/19 06/14/19 06/14/19 11:15 15:15 18:30 Temperature 97.6 F Pulse Rate 82 89 89 Respiratory 28 28 Rate Blood Pressure 132/73 122/65 (mmHg) O2 Sat by Pulse 97 96 Oximetry 06/14/19 06/14/19 06/14/19 19:30 20:07 23:11 Temperature 98.2 F 98.2 F Pulse Rate 91 87 Respiratory 20 16 24 Rate Blood Pressure 147/73 163/82 (mmHg) O2 Sat by Pulse 100 96 Oximetry 06/15/19 03:15 Temperature 97.9 F Pulse Rate 83 Respiratory 22 Rate Blood Pressure 146/75 (mmHg) O2 Sat by Pulse 100 Oximetry - Intake and Output Intake and Output: Intake & Output 06/12/19 06/13/19 06/14/19 06/15/19 11:59 11:59 11:59 11:59 Intake Total 462 973 3161 1200 Output Total 350 200 400 Balance -364 260 7118 800 Intake: Heparin 500 Oral 240 363 1427 1200 Output: Urine 350 200 400 Other: Estimated Void Medium Small Large Date of Last Bowel 7/17/19 Movement # Bowel Movements 0 1 2 3 Estimated Stool Amount Medium Small Medium # Voids 1 2 3 ADLs: Meal Record Start: 06/08/19 17: 12 Freq: 09,13,18 Status: Complete Protocol: Created 06/08/19 17:12 System (Rec: 06/08/19 17:12 System ICU-C15) Document 06/08/19 18:00 [id number] (Rec: 06/08/19 18:02 [id number] ICU-C15) Document 06/09/19 17:54 JCP7461 (Rec: 06/09/19 17:54 LHY7143 ICU-C10) Document 06/10/19 09:00 YUZ0279 (Rec: 06/10/19 11:30 KXM2302 ICU-C25) Document 06/10/19 13:00 OJE1745 (Rec: 06/10/19 18:17 CHN6506 ICU-C25) Document 06/10/19 18:00 BRM3001 (Rec: 06/10/19 19:47 SWV3064 ICU-C15) Document 06/11/19 09:00 BQT8028 (Rec: 06/11/19 11:50 AUT1736 ICU-C25) ADLs: Meal Record Start: 06/11/19 11: 54 Freq: DAILY@0900,1400,1800 Status: Active Protocol: Created 06/11/19 11:54 GHI5905 (Rec: 06/11/19 11:54 QFX7959 ICU-C25) Document 06/12/19 09:00 UFC2757 (Rec: 06/12/19 09:44 DZU8531 MED-C09) Document 06/12/19 14:00 VJX0543 (Rec: 06/12/19 15:15 LAB4670 MED-C02) Document 06/12/19 18:00 QJF8911 (Rec: 06/12/19 18:32 IGI7754 MED-C02) Document 06/13/19 09:00 LZM3683 (Rec: 06/13/19 09:20 VAE4071 MED-C02) Document 06/13/19 14:00 BPN4007 (Rec: 06/13/19 14:12 SOP2238 MED-C02) Document 06/13/19 18:00 OYF1519 (Rec: 06/13/19 18:30 VGB4875 MED-C02) Document 06/14/19 09:00 CLQ7672 (Rec: 06/14/19 18:58 PFQ7207 MED-C15) Document 06/14/19 18:00 UPF7756 (Rec: 06/14/19 20:49 EXF5301 MED-C02) Intake and Output Start: 06/08/19 12: 40 Freq: Status: Active Protocol: Created 06/08/19 12:40 System (Rec: 06/08/19 12:40 System [id number]-C04) Intake and Output Start: 06/08/19 17: 12 Freq: Q1HR Status: Complete Protocol: Created 06/08/19 17:12 System (Rec: 06/08/19 17:12 System ICU-C15) Document 06/08/19 18:51 LDY4633 (Rec: 06/08/19 18:51 XUR7723 ICU-M29) Document 06/08/19 20:00 BFH9104 (Rec: 06/08/19 20:06 YKP9398 ICU-M33) Document 06/08/19 21:00 YDY2401 (Rec: 06/08/19 21:56 FLD0966 ICU-M33) Document 06/08/19 21:56 VLZ1929 (Rec: 06/08/19 21:58 WRP1938 ICU-M33) Document 06/08/19 23:00 AMQ4765 (Rec: 06/08/19 23:03 NGS0915 ICU-C15) Document 06/09/19 00:00 SXE9825 (Rec: 06/09/19 00:13 BGU3414 ICU-C15) Document 06/09/19 01:00 SHR7553 (Rec: 06/09/19 02:37 EDX3292 ICU-C15) Document 06/09/19 02:00 BSW3389 (Rec: 06/09/19 02:37 IOA4138 ICU-C15) Document 06/09/19 03:00 GBL3186 (Rec: 06/09/19 03:16 FAB1450 ICU-M33) Document 06/09/19 04:00 PIZ2647 (Rec: 06/09/19 04:14 ZFB2276 ICU-M33) Document 06/09/19 05:00 WFM9476 (Rec: 06/09/19 05:26 SKY3872 ICU-C15) Document 06/09/19 06:00 KUR3241 (Rec: 06/09/19 06:13 CYT9957 ICU-M33) Document 06/09/19 07:00 KFJ2570 (Rec: 06/09/19 08:10 BVR8735 ICU-C15) Document 06/09/19 08:00 MWN0867 (Rec: 06/09/19 08:46 BZY1008 IMG-C14) Document 06/09/19 09:00 UHA9463 (Rec: 06/09/19 10:41 FXP7029 ICU-M33) Document 06/09/19 10:00 UTO8193 (Rec: 06/09/19 10:41 HLZ6825 ICU-M33) Document 06/09/19 11:00 PYC0336 (Rec: 06/09/19 14:08 YGT5744 ICU-C15) Document 06/09/19 12:00 QYG0160 (Rec: 06/09/19 14:08 DJF5810 ICU-C15) Document 06/09/19 13:00 XIF1912 (Rec: 06/09/19 14:09 YCG6317 ICU-C15) Document 06/09/19 14:00 TFS5835 (Rec: 06/09/19 14:09 YVT6095 ICU-C15) Document 06/09/19 14:15 VEG4084 (Rec: 06/09/19 15:11 NUD2957 ICU-C15) Document 06/09/19 15:00 TPZ7695 (Rec: 06/09/19 16:04 UVW5518 ICU-C10) Document 06/09/19 16:00 XNI3817 (Rec: 06/09/19 16:04 QLM9548 ICU-C10) Document 06/09/19 17:00 JRQ3091 (Rec: 06/09/19 17:21 RWB5090 ICU-C10) Document 06/09/19 18:00 QOG3603 (Rec: 06/09/19 18:11 DIG1761 ICU-C10) Document 06/09/19 18:51 PLP4829 (Rec: 06/09/19 18:51 ZSE3472 ICU-M33) Document 06/09/19 20:00 CTK9314 (Rec: 06/09/19 21:05 UVZ4016 ICU-M33) Document 06/09/19 21:00 HHY1415 (Rec: 06/09/19 21:05 JJJ0807 ICU-M33) Document 06/09/19 22:00 MQY9450 (Rec: 06/09/19 22:10 LXK5350 ICU-C16) Document 06/09/19 22:56 IQY1944 (Rec: 06/09/19 22:56 UKR7206 ICU-C16) Document 06/10/19 00:00 URV3587 (Rec: 06/10/19 00:25 WTL1391 ICU-M33) Document 06/10/19 01:00 AOU8708 (Rec: 06/10/19 01:11 EIL9728 ICU-C16) Document 06/10/19 02:00 DBF9354 (Rec: 06/10/19 02:05 IKA4951 ICU-C16) Document 06/10/19 03:00 ZOS3478 (Rec: 06/10/19 04:15 ZPA1025 ICU-C12) Document 06/10/19 04:00 SZY3218 (Rec: 06/10/19 04:15 MCB3215 ICU-C12) Document 06/10/19 05:00 MPC6163 (Rec: 06/10/19 06:17 TEF2223 ICU-C16) Document 06/10/19 06:00 XLR1101 (Rec: 06/10/19 06:17 RFX3325 ICU-C16) Document 06/10/19 07:00 EOT2248 (Rec: 06/10/19 08:14 QYN6318 ICU-M33) Document 06/10/19 08:00 WVU4493 (Rec: 06/10/19 08:14 HPI2130 ICU-M33) Document 06/10/19 09:00 WLF3344 (Rec: 06/10/19 10:34 FZR5846 ICU-C25) Document 06/10/19 10:00 TCK2828 (Rec: 06/10/19 10:34 DBV5693 ICU-C25) Document 06/10/19 11:00 KDL8532 (Rec: 06/10/19 11:15 ITX2932 ICU-C25) Document 06/10/19 11:58 EGE6570 (Rec: 06/10/19 11:58 ADZ1356 ICU-C14) Document 06/10/19 13:00 ETF5309 (Rec: 06/10/19 13:02 TDV6505 ICU-C16) Document 06/10/19 14:00 RAL6069 (Rec: 06/10/19 14:23 AWT8983 ICU-M31) Document 06/10/19 15:00 NZY9705 (Rec: 06/10/19 17:20 VSN2314 ICU-M33) Document 06/10/19 15:00 WYJ5233 (Rec: 06/10/19 17:29 FSV7393 ICU-M33) Document 06/10/19 16:00 VPU4982 (Rec: 06/10/19 17:20 TGJ8252 ICU-M33) Document 06/10/19 17:00 KGC3241 (Rec: 06/10/19 17:20 YYE8600 ICU-M33) Document 06/10/19 18:00 DHT8841 (Rec: 06/10/19 18:22 JFE3159 ICU-C25) Document 06/10/19 19:00 XUL6582 (Rec: 06/10/19 19:51 KIK2394 ICU-M33) Document 06/10/19 20:00 MJV9092 (Rec: 06/10/19 20:24 HUC8440 ICU-C15) Document 06/10/19 21:00 UPW1729 (Rec: 06/10/19 22:03 NPB4686 ICU-C15) Document 06/10/19 22:00 VOF8280 (Rec: 06/10/19 22:15 KTQ7531 ICU-C15) Document 06/10/19 23:00 YSR2790 (Rec: 06/10/19 23:29 XUZ6537 ICU-C15) Document 06/11/19 00:00 XOM0935 (Rec: 06/11/19 00:31 HXL2506 ICU-C15) Document 06/11/19 01:00 VHX6115 (Rec: 06/11/19 01:27 AME5593 ICU-C15) Document 06/11/19 02:00 RSH7710 (Rec: 06/11/19 02:25 OLD5293 ICU-C15) Document 06/11/19 03:00 FWC2199 (Rec: 06/11/19 03:11 SYK8822 ICU-C15) Document 06/11/19 04:00 PML6742 (Rec: 06/11/19 04:21 ZSH2007 ICU-M33) Document 06/11/19 05:00 WAO7278 (Rec: 06/11/19 05:23 MHK4025 ICU-C15) Document 06/11/19 06:00 ZVB4074 (Rec: 06/11/19 06:13 SMV8410 ICU-C15) Document 06/11/19 07:00 WXG5989 (Rec: 06/11/19 08:10 TEJ6298 ICU-C25) Document 06/11/19 08:00 NJH3234 (Rec: 06/11/19 08:10 JSR2294 ICU-C25) Document 06/11/19 09:00 LBD1665 (Rec: 06/11/19 11:33 GQU5856 ICU-C25) Document 06/11/19 10:00 KKX3202 (Rec: 06/11/19 11:33 MMB2960 ICU-C25) Document 06/11/19 11:00 EID0832 (Rec: 06/11/19 11:33 AIC0735 ICU-C25) Intake and Output Start: 06/11/19 11: 54 Freq: DAILY@0600,1400,2200 Status: Active Protocol: Created 06/11/19 11:54 KHN3301 (Rec: 06/11/19 11:54 NXX2252 ICU-C25) Document 06/11/19 22:00 MPZ1187 (Rec: 06/11/19 22:37 DKH0187 MED-C11) Document 06/12/19 06:00 VDB9874 (Rec: 06/12/19 06:31 INY5499 MED-C11) Document 06/12/19 14:00 WPY8851 (Rec: 06/12/19 15:15 UXU3228 MED-C02) Document 06/12/19 22:00 EJW5615 (Rec: 06/12/19 23:33 ITI7907 MED-C11) Document 06/13/19 05:03 WIT7093 (Rec: 06/13/19 05:04 AOX2629 MED-C11) Document 06/13/19 06:00 PXK5160 (Rec: 06/13/19 06:13 QEA6277 MED-C11) Document 06/13/19 14:00 EYJ9301 (Rec: 06/13/19 14:12 NKR1999 MED-C02) Document 06/13/19 22:00 MZB5980 (Rec: 06/13/19 22:11 XGO6202 MED-C26) Document 06/14/19 05:01 IEL7415 (Rec: 06/14/19 05:02 ZKC0572 MED-C26) Document 06/14/19 14:00 NPE1314 (Rec: 06/14/19 14:47 YOA1089 MED-C09) Document 06/14/19 22:00 PWA8064 (Rec: 06/14/19 22:10 WTZ1911 MED-C02) Document 06/15/19 06:00 JLE6763 (Rec: 06/15/19 06:17 XZU7196 MED-C02) - Physical Exam General Physical Exam Comment: She is tachypneic and looks unhappy. She is tangled up in her bed clothes. General: No Cyanosis, No Anemia, No Jaundice, No Clubbing Skin: Normal: Rash Lungs and Chest: Yes: Chest Expansion Full, Chest Expansion Symetrica, Percussion Note Resonant, Crackles, Wheezes, Respiratory Distress, Use of Accessory Muscles. No: Vessicular Breath Sounds Heart Rate and Rhythm: Irregular Additional Cardiovascular: Yes: Normal Heart Sounds, Heart Murmur. No: Pedal Edema Abdominal Exam: Yes: Soft, Bowel Sounds Present. No: Distention, Rigidity, Abdominal Tenderness Results - Results Lab Results: Laboratory Results - last 24 hr 06/13/19 06/14/19 06/14/19 10:37 06:20 06:20 WBC 14.5 H RBC 3.89 Hgb 11.0 L Hct 33 L MCV 84 MCH 28 MCHC 34 RDW 16 H Plt Count 150 MPV 9.2 Neut % (Auto) 68.4 Lymph % (Auto) 11.0 [place] % (Auto) 11.2 Eos % (Auto) 8.3 Baso % (Auto) 1.1 Absolute Neuts (auto) 9.6 H Absolute Lymphs (auto) 1.5 Absolute Monos (auto) 1.6 H Absolute Eos (auto) 1.2 H Absolute Basos (auto) 0.1 Absolute Nucleated RBC 0.0 Nucleated RBC % 0.0 ALT 1071 H Procalcitonin 1.6 H 06/15/19 07:28 WBC 15.5 H RBC 3.99 Hgb 11.3 L Hct 34 L MCV 85 MCH 28 MCHC 33 RDW 16 H Plt Count 177 MPV 9.6 Neut % (Auto) 70.3 Lymph % (Auto) 12.4 [place] % (Auto) 12.0 Eos % (Auto) 4.2 Baso % (Auto) 1.1 Absolute Neuts (auto) 10.9 H Absolute Lymphs (auto) 1.9 Absolute Monos (auto) 1.9 H Absolute Eos (auto) 0.6 Absolute Basos (auto) 0.2 Absolute Nucleated RBC 0.0 Nucleated RBC % 0.0 ALT Procalcitonin Assessment - Problem List Assessment: Patient Problems Acute myocardial infarction (Acute) Acute renal failure (Acute) CHF, acute (Acute) Hypokalemia (Acute) Ischemic hepatitis (Acute) Leukocytosis (Acute) Respiratory distress (Acute) Alcohol dependence (Chronic) Alcoholism (Chronic) Anticoagulated (Chronic) Atrial fibrillation (Chronic) COPD (chronic obstructive pulmonary disease) (Chronic) 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 Reema Reynoso assistance. She thinks her respiratory distress is likely multifactorial, with CHF playing a part. As her labs are pending, I will maintain her current diuretic dose, though I may increase the dose should her BUN/Cr tolerate this. Acute renal failure (Acute) pending labs Hypokalemia (Acute) pending labs Ischemic hepatitis (Acute) pending labs Leukocytosis (Acute) Her white count is a little higher, though her neut% is only marginally higher. I await the CRP. Respiratory distress (Acute) She clearly has an exacerbation of COPD as she is wheezing. I will add prednisone to her regimen. Anticoagulated (Chronic)Atrial fibrillation (Chronic) I plant to wait another day or two before restarting oral anticoagulants. 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
[2019-06-15 08:32] LABS: Albumin 3.3 g/dL (3.2-5.2); BUN/Creatinine Ratio 25.7 (8-20); C Reactive Protein 47.38 mg/L (<8.01); Calcium 8.6 mg/dL (8.6-10.3); EGFR African American 43.9 (>60); EGFR Non-African American 36.3 (>60); Globulin 3.4 g/dL (2-4); Indirect Bilirubin 1.4 mg/dL (0.3-1.0); Potassium 3.4 mmol/L (3.5-5.0); Total Bilirubin 2.7 mg/dL (0.2-1.0); Total Protein 6.7 g/dL (6.4-8.9)
[2019-06-15] MEDS: Carvedilol TAB* 3.125 MG PO SCH ×2 (09:32→22:03)
[2019-06-15] MEDS: Potassium Chlor TAB* 20 MEQ TAB.ER PO SCH ×2 (09:32→22:03)
[2019-06-15] MEDS: Furosemide IV* 10 MG/ML 2 ML VIAL (20 MG) IV SCH (09:33)
[2019-06-15] MEDS: Aspirin 81 mg CHEW TAB* 81 MG TAB.CHEW PO SCH (09:33)
[2019-06-15] MEDS: predniSONE TAB* 20 MG PO SCH ×2 (09:38→22:03)
--- NOTE | 2019-06-15 12:30 | PN ---
Progress Note - Progress Note Date of Service: 06/15/19 Note: I have reviewed today's labs. Her CRP and WBC are increasing. I note her BUN and Cr are coming down despite furosemide 20 mg bid IV yesterday. I will double this today. I will also restart an antibacterial in case she is getting a secondary lung infection.
[2019-06-15] MEDS ORDERED: Zosyn per Pharmacy* NOTE FOLLOW UP SCH (13:00)
[2019-06-15] MEDS ORDERED: ZOSYN 3.375 GM x ONE DOSE over 30 miuntes IVPB ×2 (13:00)
[2019-06-15] MEDS: ZOSYN 3.375 GM Q8H per EXTENDED INFUSION IVPB SCH ×2 (17:17)
[2019-06-15] MEDS: Digoxin TAB* 0.125 MG PO SCH (17:17)
[2019-06-15] MEDS ORDERED: Furosemide IV* 10 MG/ML 2 ML VIAL (20 MG) IV SCH (21:00)
[2019-06-16] MEDS: ZOSYN 3.375 GM Q8H per EXTENDED INFUSION IVPB SCH ×6 (01:38→16:38)
[2019-06-16 04:56] LABS: ABS Basophils 0.2 10^3/ul (0-0.2); ABS Eosinophils 0.1 10^3/ul (0-0.6); ABS Lymphocytes 2.6 10^3/ul (1.0-4.8); ABS Monocytes 1.2 10^3/ul (0-0.8); ABS Neutrophils 14.2 10^3/ul (1.5-7.7); Eosinophil % 0.5 %; Hematocrit 36 % (35-47); Hemoglobin 11.7 g/dL (12.0-16.0); Lymphocyte % 14.4 %; Mean Corpuscular HGB Conc 32 g/dL (31-36); Mean Corpuscular Hemoglobin 28 pg (27-31); Mean Corpuscular Volume 86 fL (80-97); Mean Platelet Volume 9.7 fL (7.4-10.4); Nucleated Red Blood Cells % 0.1; Platelet Count 189 10^3/uL (150-450); Red Blood Count 4.21 10^6 /uL (3.70-4.87); Red Cell Distribution Width 16 % (10-15); White Blood Count 18.3 10^3/uL (3.5-10.8)
[2019-06-16 04:59] LABS: Activated Partial Thrombo Time 34.8 seconds (26.0-38.0); INR 1.27 (0.82-1.09)
[2019-06-16 05:06] LABS: BUN/Creatinine Ratio 30.1 (8-20); C Reactive Protein 80.13 mg/L (<8.01); Calcium 8.5 mg/dL (8.6-10.3); EGFR African American 42.8 (>60); EGFR Non-African American 35.4 (>60); Potassium 3.9 mmol/L (3.5-5.0)
[2019-06-16] MEDS: Heparin VIAL(*) 5000 UNITS/ML VIAL (FIVE THOUSAND) IV PRN (06:16)
--- NOTE | 2019-06-16 07:38 | PN ---
Subjective - Subjective Reason for Note: Progress Note History: Yesterday morning she had altered mental state. However, according to the night RN, by the evening she was oriented again and was able to walk to the bathroom with some assistance. I started her on piperacillin/tazobactam, prednisone and O2 yesterday and this appears to be helping. This morning she is alert and oriented, insightful. She denies pain, fevers or sweats. She is coughing. She is concerned to be able to walk to the bathroom and is upset at her urinary incontinence. She also has had some diarrhea. Active Problems: Active Problems Acute myocardial infarction (Acute) I21.9 Acute renal failure (Acute) CHF, acute (Acute) I50.9 Hypokalemia (Acute) E87.6 Ischemic hepatitis (Acute) K75.9 Leukocytosis (Acute) D72.829 Pneumonia (Acute) J18.9 Respiratory distress (Acute) R06.03 Current Medications: Current Medications Aspirin (Aspirin 81 Mg Chew Tab*) 81 mg PO DAILY [facility] Last Admin: 06/15/19 09:33 Dose: 81 mg Carvedilol (Coreg Tab*) 3.125 mg PO BID [facility] Last Admin: 06/15/19 22:03 Dose: 3.125 mg Digoxin (Lanoxin Tab*) 0.125 mg PO QPM [facility] Last Admin: 06/15/19 17:17 Dose: 0.125 mg Furosemide (Lasix Iv*) 40 mg IV BID [facility] Last Admin: 06/15/19 22:05 Dose: 40 mg Heparin Sodium (Porcine) (Heparin Vial(*)) 0 units IV .BOLUS PRN PRN Reason: HEPARIN DRIP PROTOCOL Last Admin: 06/16/19 06:16 Dose: 4,050 units Heparin Sodium/Dextrose (Heparin Drip 25,000 Units(*)) 25,000 units in 500 mls @ 0 mls/hr IV PER RATE [facility]; Protocol Last Admin: 06/15/19 07:35 Dose: 15 mls/hr Piperacillin Sod/Tazobactam (Sod 3.375 gm/ Sodium Chloride) 100 mls @ 25 mls/ hr IVPB Q8H [facility] Last Admin: 06/16/19 01:38 Dose: 25 mls/hr Levalbuterol HCl (Xopenex 0.63mg/3ml Neb*) 0.31 mg INH Q6H PRN PRN Reason: SOB/WHEEZING Ondansetron HCl (Zofran Inj*) 4 mg IV Q6H PRN PRN Reason: NAUSEA/VOMITING Pharmacy Consult (Zosyn Per Pharmacy*) 1 note FOLLOW UP .ZOSYN PER PHARMACY [facility] Potassium Chloride (Klor Con Er Tab*) 20 meq PO BID [facility] Stop: 06/17/19 23:59 Last Admin: 06/15/19 22:03 Dose: 20 meq Prednisone (Deltasone Tab*) 20 mg PO BID [facility] Last Admin: 06/15/19 22:03 Dose: 20 mg Home Medications: Home Medications Medication Instructions Recorded Confirmed Type Digoxin TAB* [Lanoxin TAB*] 0.125 mg PO BID 11/14/17 06/08/19 History levETIRAcetam TAB* [Keppra TAB*] 750 mg PO BID tab 11/16/17 06/08/19 Rx Carvedilol TAB* [Coreg TAB*] 3.125 mg PO BID 03/10/18 06/08/19 History Aspirin 81 mg CHEW TAB* 81 mg PO DAILY 12/01/18 06/08/19 History Atorvastatin* [Lipitor 20 MG*] 20 mg PO BEDTIME 12/01/18 06/08/19 History Rivaroxaban TAB(*) [Xarelto 15 15 mg PO DAILY 12/01/18 06/08/19 History mg(*)] lamoTRIgine TAB(*) [Lamictal 100 mg PO BID 12/01/18 06/08/19 History TAB(*)] Allergies: Allergies Allergy/AdvReac Type Severity Reaction Status Date / Time No Known Allergies Allergy Verified 02/12/17 08:03 Objective - Vital Signs Vital Signs: Vital Signs 06/15/19 06/15/19 06/15/19 08:00 12:03 14:09 Temperature 97.8 F 98.2 F Pulse Rate 82 75 Respiratory 30 24 25 Rate Blood Pressure 110/61 111/58 (mmHg) O2 Sat by Pulse 100 100 Oximetry 06/15/19 15:23 Temperature 96.5 F Pulse Rate 92 Respiratory 20 Rate Blood Pressure 128/78 (mmHg) O2 Sat by Pulse 100 Oximetry - Intake and Output Intake and Output: Intake & Output 06/13/19 06/14/19 06/15/19 06/16/19 11:59 11:59 11:59 11:59 Intake Total 480 1880 1422 852 Output Total 200 400 100 Balance 280 1880 1022 752 Intake: Heparin 500 Oral 480 1380 1422 852 Output: Urine 200 400 Liquid Stool 100 Other: Estimated Void Medium Small Large Medium Date of Last Bowel 06/14/19 Movement # Bowel Movements 1 2 3 1 Estimated Stool Amount Medium Small Medium Medium # Voids 1 2 3 1 ADLs: Meal Record Start: 06/08/19 17: 12 Freq: 09,13,18 Status: Complete Protocol: Created 06/08/19 17:12 System (Rec: 06/08/19 17:12 System ICU-C15) Document 06/08/19 18:00 [id number] (Rec: 06/08/19 18:02 [id number] ICU-C15) Document 06/09/19 17:54 KXP4116 (Rec: 06/09/19 17:54 MMD7551 ICU-C10) Document 06/10/19 09:00 WBR7253 (Rec: 06/10/19 11:30 ZRT3958 ICU-C25) Document 06/10/19 13:00 KZN4717 (Rec: 06/10/19 18:17 SDI3565 ICU-C25) Document 06/10/19 18:00 MJK5306 (Rec: 06/10/19 19:47 IKS8972 ICU-C15) Document 06/11/19 09:00 XFV8580 (Rec: 06/11/19 11:50 DPF6896 ICU-C25) ADLs: Meal Record Start: 06/11/19 11: 54 Freq: DAILY@0900,1400,1800 Status: Active Protocol: Created 06/11/19 11:54 ZYC3277 (Rec: 06/11/19 11:54 FUD2612 ICU-C25) Document 06/12/19 09:00 HUN6171 (Rec: 06/12/19 09:44 YSU1351 MED-C09) Document 06/12/19 14:00 RNS9864 (Rec: 06/12/19 15:15 EOH7351 MED-C02) Document 06/12/19 18:00 TEP2378 (Rec: 06/12/19 18:32 MMI7897 MED-C02) Document 06/13/19 09:00 ZBW2790 (Rec: 06/13/19 09:20 KTF3420 MED-C02) Document 06/13/19 14:00 GYI9564 (Rec: 06/13/19 14:12 HOQ2742 MED-C02) Document 06/13/19 18:00 GEZ1935 (Rec: 06/13/19 18:30 STH4630 MED-C02) Document 06/14/19 09:00 HHC7077 (Rec: 06/14/19 18:58 YWP2026 MED-C15) Document 06/14/19 18:00 GXA1767 (Rec: 06/14/19 20:49 FOW5944 MED-C02) Document 06/15/19 09:00 KEB0279 (Rec: 06/15/19 17:20 GZV4640 MED-C02) Document 06/15/19 14:00 XBH2618 (Rec: 06/15/19 17:20 GFI2730 MED-C02) Document 06/15/19 18:00 VRT7960 (Rec: 06/15/19 21:26 LLF1509 MED-C09) Intake and Output Start: 06/08/19 12: 40 Freq: Status: Active Protocol: Created 06/08/19 12:40 System (Rec: 06/08/19 12:40 System [id number]-C04) Intake and Output Start: 06/08/19 17: 12 Freq: Q1HR Status: Complete Protocol: Created 06/08/19 17:12 System (Rec: 06/08/19 17:12 System ICU-C15) Document 06/08/19 18:51 TYT5878 (Rec: 06/08/19 18:51 IBF7556 ICU-M29) Document 06/08/19 20:00 TVF0764 (Rec: 06/08/19 20:06 THY2652 ICU-M33) Document 06/08/19 21:00 EDE2545 (Rec: 06/08/19 21:56 AJI3308 ICU-M33) Document 06/08/19 21:56 EGC9625 (Rec: 06/08/19 21:58 VQW5448 ICU-M33) Document 06/08/19 23:00 ZLM6325 (Rec: 06/08/19 23:03 GKS7685 ICU-C15) Document 06/09/19 00:00 EIC3954 (Rec: 06/09/19 00:13 HZN9015 ICU-C15) Document 06/09/19 01:00 TXB2779 (Rec: 06/09/19 02:37 FHO7104 ICU-C15) Document 06/09/19 02:00 YPX1391 (Rec: 06/09/19 02:37 XVO3608 ICU-C15) Document 06/09/19 03:00 JWV1527 (Rec: 06/09/19 03:16 IVF9846 ICU-M33) Document 06/09/19 04:00 WQH6431 (Rec: 06/09/19 04:14 HDD9934 ICU-M33) Document 06/09/19 05:00 FXD3732 (Rec: 06/09/19 05:26 FCO1392 ICU-C15) Document 06/09/19 06:00 YPQ4113 (Rec: 06/09/19 06:13 EPT6657 ICU-M33) Document 06/09/19 07:00 BEH2068 (Rec: 06/09/19 08:10 HDE3009 ICU-C15) Document 06/09/19 08:00 IZI9849 (Rec: 06/09/19 08:46 BPU5231 IMG-C14) Document 06/09/19 09:00 PDE4152 (Rec: 06/09/19 10:41 ACF4778 ICU-M33) Document 06/09/19 10:00 XFY9774 (Rec: 06/09/19 10:41 YCI4356 ICU-M33) Document 06/09/19 11:00 KVS2934 (Rec: 06/09/19 14:08 MWK1866 ICU-C15) Document 06/09/19 12:00 QUK4346 (Rec: 06/09/19 14:08 HSA3613 ICU-C15) Document 06/09/19 13:00 BLD8769 (Rec: 06/09/19 14:09 WRZ1099 ICU-C15) Document 06/09/19 14:00 KJS1494 (Rec: 06/09/19 14:09 ZJM4002 ICU-C15) Document 06/09/19 14:15 BXC9295 (Rec: 06/09/19 15:11 XHV5908 ICU-C15) Document 06/09/19 15:00 TYJ8589 (Rec: 06/09/19 16:04 KPT5004 ICU-C10) Document 06/09/19 16:00 VIJ4034 (Rec: 06/09/19 16:04 WAT8555 ICU-C10) Document 06/09/19 17:00 KSC4494 (Rec: 06/09/19 17:21 LSE5453 ICU-C10) Document 06/09/19 18:00 SJI5098 (Rec: 06/09/19 18:11 RHP6090 ICU-C10) Document 06/09/19 18:51 KBU3309 (Rec: 06/09/19 18:51 AYH9338 ICU-M33) Document 06/09/19 20:00 JGQ3240 (Rec: 06/09/19 21:05 GZE0703 ICU-M33) Document 06/09/19 21:00 AZD7093 (Rec: 06/09/19 21:05 RKS4517 ICU-M33) Document 06/09/19 22:00 LWI5575 (Rec: 06/09/19 22:10 ZAV0933 ICU-C16) Document 06/09/19 22:56 JZP4769 (Rec: 06/09/19 22:56 XNX7189 ICU-C16) Document 06/10/19 00:00 PAN1857 (Rec: 06/10/19 00:25 YPN1081 ICU-M33) Document 06/10/19 01:00 VUW2554 (Rec: 06/10/19 01:11 ZLG7758 ICU-C16) Document 06/10/19 02:00 ESG6416 (Rec: 06/10/19 02:05 SLF3663 ICU-C16) Document 06/10/19 03:00 KCY9003 (Rec: 06/10/19 04:15 OFB4671 ICU-C12) Document 06/10/19 04:00 LGT2372 (Rec: 06/10/19 04:15 TTN9456 ICU-C12) Document 06/10/19 05:00 NQG1949 (Rec: 06/10/19 06:17 TXE0140 ICU-C16) Document 06/10/19 06:00 UVD3381 (Rec: 06/10/19 06:17 WBM9135 ICU-C16) Document 06/10/19 07:00 TRW0107 (Rec: 06/10/19 08:14 JTB9143 ICU-M33) Document 06/10/19 08:00 QIV4758 (Rec: 06/10/19 08:14 JIO4231 ICU-M33) Document 06/10/19 09:00 FYZ7377 (Rec: 06/10/19 10:34 ILN1842 ICU-C25) Document 06/10/19 10:00 SWB3612 (Rec: 06/10/19 10:34 WDU8852 ICU-C25) Document 06/10/19 11:00 JFN3756 (Rec: 06/10/19 11:15 HER2094 ICU-C25) Document 06/10/19 11:58 LRV2786 (Rec: 06/10/19 11:58 RHT4439 ICU-C14) Document 06/10/19 13:00 JYT1064 (Rec: 06/10/19 13:02 ONP3251 ICU-C16) Document 06/10/19 14:00 QZW1910 (Rec: 06/10/19 14:23 OAJ3624 ICU-M31) Document 06/10/19 15:00 EFM5644 (Rec: 06/10/19 17:20 MRB5993 ICU-M33) Document 06/10/19 15:00 DKE2263 (Rec: 06/10/19 17:29 OVS6422 ICU-M33) Document 06/10/19 16:00 PMI1081 (Rec: 06/10/19 17:20 NLV9543 ICU-M33) Document 06/10/19 17:00 NAK5685 (Rec: 06/10/19 17:20 KWZ4488 ICU-M33) Document 06/10/19 18:00 BKS4889 (Rec: 06/10/19 18:22 AOX4297 ICU-C25) Document 06/10/19 19:00 QNR4846 (Rec: 06/10/19 19:51 ALN0112 ICU-M33) Document 06/10/19 20:00 XDD0079 (Rec: 06/10/19 20:24 FAH2583 ICU-C15) Document 06/10/19 21:00 HDL0205 (Rec: 06/10/19 22:03 IWO1143 ICU-C15) Document 06/10/19 22:00 JOH1503 (Rec: 06/10/19 22:15 ETJ5926 ICU-C15) Document 06/10/19 23:00 EUZ0375 (Rec: 06/10/19 23:29 IXW2374 ICU-C15) Document 06/11/19 00:00 ZGW5840 (Rec: 06/11/19 00:31 VQW2509 ICU-C15) Document 06/11/19 01:00 ZTB1456 (Rec: 06/11/19 01:27 XFL9857 ICU-C15) Document 06/11/19 02:00 JQP4625 (Rec: 06/11/19 02:25 WEY1750 ICU-C15) Document 06/11/19 03:00 DSE5221 (Rec: 06/11/19 03:11 LWQ5857 ICU-C15) Document 06/11/19 04:00 SVW1101 (Rec: 06/11/19 04:21 IJD6637 ICU-M33) Document 06/11/19 05:00 NBT6490 (Rec: 06/11/19 05:23 ADC7737 ICU-C15) Document 06/11/19 06:00 NEA5499 (Rec: 06/11/19 06:13 MMY6221 ICU-C15) Document 06/11/19 07:00 WNL3420 (Rec: 06/11/19 08:10 JYM8115 ICU-C25) Document 06/11/19 08:00 ZBR3861 (Rec: 06/11/19 08:10 QEX9637 ICU-C25) Document 06/11/19 09:00 GJA4209 (Rec: 06/11/19 11:33 RFJ9758 ICU-C25) Document 06/11/19 10:00 XDE9891 (Rec: 06/11/19 11:33 DVR8099 ICU-C25) Document 06/11/19 11:00 IBH7679 (Rec: 06/11/19 11:33 RNL4229 ICU-C25) Intake and Output Start: 06/11/19 11: 54 Freq: DAILY@0600,1400,2200 Status: Active Protocol: Created 06/11/19 11:54 OMN0531 (Rec: 06/11/19 11:54 YQA2084 ICU-C25) Document 06/11/19 22:00 HEP0166 (Rec: 06/11/19 22:37 JSK5569 MED-C11) Document 06/12/19 06:00 WOK5051 (Rec: 06/12/19 06:31 KNU6187 MED-C11) Document 06/12/19 14:00 YFL0902 (Rec: 06/12/19 15:15 ACU5352 MED-C02) Document 06/12/19 22:00 UZP0726 (Rec: 06/12/19 23:33 TIS4265 MED-C11) Document 06/13/19 05:03 XEE1732 (Rec: 06/13/19 05:04 ONF8100 MED-C11) Document 06/13/19 06:00 RHS9504 (Rec: 06/13/19 06:13 KZR9414 MED-C11) Document 06/13/19 14:00 BKN0995 (Rec: 06/13/19 14:12 QUJ0891 MED-C02) Document 06/13/19 22:00 SDZ3155 (Rec: 06/13/19 22:11 WKP3213 MED-C26) Document 06/14/19 05:01 HXW1848 (Rec: 06/14/19 05:02 THH2345 MED-C26) Document 06/14/19 14:00 CLY2139 (Rec: 06/14/19 14:47 ISQ7774 MED-C09) Document 06/14/19 22:00 HMU3407 (Rec: 06/14/19 22:10 AYW0083 MED-C02) Document 06/15/19 06:00 WOK1629 (Rec: 06/15/19 06:17 JKG8252 MED-C02) Document 06/15/19 14:00 HKD0211 (Rec: 06/15/19 17:28 EFS6907 MED-C02) Document 06/15/19 18:53 ZAH6041 (Rec: 06/15/19 18:53 FFF1400 MED-C02) Document 06/15/19 21:27 YBW0549 (Rec: 06/15/19 21:27 KHJ9916 MED-C09) Document 06/16/19 05:02 ODY5298 (Rec: 06/16/19 05:03 QNZ1414 MED-C09) - Physical Exam General Physical Exam Comment: She has tachypnea and is using accessory muscles of respiration. However, she is warm and well perfused, hemodynamically stable General: No Cyanosis, No Anemia, No Jaundice, No Clubbing Lungs and Chest: Yes: Chest Expansion Symetrica, Percussion Note Resonant, Crackles - coarse crackles left base, Wheezes, Respiratory Distress, Use of Accessory Muscles. No: Chest Expansion Full, Vessicular Breath Sounds Heart Rate and Rhythm: Irregular Additional Cardiovascular: Yes: Normal Heart Sounds, Heart Murmur. No: Pedal Edema Abdominal Exam: Yes: Soft, Bowel Sounds Present. No: Distention, Abdominal Tenderness Results - Results Lab Results: Laboratory Results - last 24 hr 06/15/19 06/15/19 06/15/19 07:28 07:28 07:28 WBC 15.5 H RBC 3.99 Hgb 11.3 L Hct 34 L MCV 85 MCH 28 MCHC 33 RDW 16 H Plt Count 177 MPV 9.6 Neut % (Auto) 70.3 Lymph % (Auto) 12.4 Glynn % (Auto) 12.0 Eos % (Auto) 4.2 Baso % (Auto) 1.1 Absolute Neuts (auto) 10.9 H Absolute Lymphs (auto) 1.9 Absolute Monos (auto) 1.9 H Absolute Eos (auto) 0.6 Absolute Basos (auto) 0.2 Absolute Nucleated RBC 0.0 Nucleated RBC % 0.0 INR (Anticoag Therapy) APTT Sodium 143 Potassium 3.4 L Chloride 104 Carbon Dioxide 25 Anion Gap 14 H BUN 36 H Creatinine 1.40 H Est GFR ( Amer) 43.9 Est GFR (Non-Af Amer) 36.3 BUN/Creatinine Ratio 25.7 H Glucose 162 H Calcium 8.6 Total Bilirubin 2.70 H Direct Bilirubin 1.30 H Indirect Bilirubin 1.4 H AST 127 H ALT 826 H Alkaline Phosphatase 232 H C-Reactive Protein 47.38 H B-Natriuretic Peptide > 1300 H Total Protein 6.7 Albumin 3.3 Globulin 3.4 Albumin/Globulin Ratio 1.0 06/15/19 06/15/19 06/16/19 07:28 19:26 04:35 WBC RBC Hgb Hct MCV MCH MCHC RDW Plt Count MPV Neut % (Auto) Lymph % (Auto) Glynn % (Auto) Eos % (Auto) Baso % (Auto) Absolute Neuts (auto) Absolute Lymphs (auto) Absolute Monos (auto) Absolute Eos (auto) Absolute Basos (auto) Absolute Nucleated RBC Nucleated RBC % INR (Anticoag Therapy) APTT 49.3 H 96.5 H Sodium 141 Potassium 3.9 Chloride 101 Carbon Dioxide 30 Anion Gap 10 BUN 43 H Creatinine 1.43 H Est GFR ( Amer) 42.8 Est GFR (Non-Af Amer) 35.4 BUN/Creatinine Ratio 30.1 H Glucose 147 H Calcium 8.5 L Total Bilirubin Direct Bilirubin Indirect Bilirubin AST ALT Alkaline Phosphatase C-Reactive Protein 80.13 H B-Natriuretic Peptide Total Protein Albumin Globulin Albumin/Globulin Ratio 06/16/19 06/16/19 04:35 04:35 WBC 18.3 H RBC 4.21 Hgb 11.7 L Hct 36 MCV 86 MCH 28 MCHC 32 RDW 16 H Plt Count 189 MPV 9.7 Neut % (Auto) 77.6 Lymph % (Auto) 14.4 Glynn % (Auto) 6.6 Eos % (Auto) 0.5 Baso % (Auto) 0.9 Absolute Neuts (auto) 14.2 H Absolute Lymphs (auto) 2.6 Absolute Monos (auto) 1.2 H Absolute Eos (auto) 0.1 Absolute Basos (auto) 0.2 Absolute Nucleated RBC 0.0 Nucleated RBC % 0.1 INR (Anticoag Therapy) 1.27 H APTT 34.8 Sodium Potassium Chloride Carbon Dioxide Anion Gap BUN Creatinine Est GFR ( Amer) Est GFR (Non-Af Amer) BUN/Creatinine Ratio Glucose Calcium Total Bilirubin Direct Bilirubin Indirect Bilirubin AST ALT Alkaline Phosphatase C-Reactive Protein B-Natriuretic Peptide Total Protein Albumin Globulin Albumin/Globulin Ratio Assessment - Problem List Assessment: Patient Problems Acute myocardial infarction (Acute) Acute renal failure (Acute) CHF, acute (Acute) Hypokalemia (Acute) Ischemic hepatitis (Acute) Leukocytosis (Acute) Pneumonia (Acute) Respiratory distress (Acute) Alcohol dependence (Chronic) Alcoholism (Chronic) Anticoagulated (Chronic) Atrial fibrillation (Chronic) COPD (chronic obstructive pulmonary disease) (Chronic) 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 I have maximized her furosemide. I think that her wheezing is now mostly due to pulmonary issues. Acute renal failure (Acute) Her BUN/Cr went up due to diuretic therapy - I will relax this today Respiratory distress (Acute) Leukocytosis (Acute) Pneumonia (Acute) I will check a CXR. I anticipate her CRP coming down again tomorrow - her WBC is higher due to the prednisone. I will ask Dr. Belle Tijerina to consult. Hypokalemia (Acute) recovered Ischemic hepatitis (Acute) improving Anticoagulated (Chronic) Atrial fibrillation (Chronic) Secondary diagnoses: Alcohol dependence (Chronic) Alcoholism (Chronic) I am starting her on warfarin today - her INR is 1.29. I prefer this in the face of hepatic compromise as I can adjust the dose, whereas she may run into trouble with other oral agents that are not adjustable. 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
[2019-06-16] MEDS: Potassium Chlor TAB* 20 MEQ TAB.ER PO SCH ×2 (08:56→20:12)
[2019-06-16] MEDS: Carvedilol TAB* 3.125 MG PO SCH ×2 (08:56→20:24)
[2019-06-16] MEDS: Aspirin 81 mg CHEW TAB* 81 MG TAB.CHEW PO SCH (08:56)
[2019-06-16] MEDS: predniSONE TAB* 20 MG PO SCH ×2 (08:56→20:12)
[2019-06-16] MEDS: Furosemide TAB* 20 MG PO SCH ×2 (08:56→16:39)
--- NOTE | 2019-06-16 15:07 | CONS ---
PULMONARY CONSULTATION REPORT: DATE OF CONSULT: 06/16/19 CONSULTATION REQUESTED BY: Dr. Jigar Biswas. REASON FOR CONSULTATION: Evaluation of COPD, abnormal CT chest. HISTORY OF PRESENT ILLNESS: The patient is a 79-year-old female, former smoker with close to [id number]-[id number] smoking history; quit in 1994, heavy alcohol usage, drinks 3 glasses of wine nightly, with history of CHF, hypertension, seizure disorder, CVA, AFib, bradycardia, COPD who presented to the emergency room for evaluation of shortness of breath and generalized malaise. The patient has returned from a trip to [place] on 06/06/19. She has been having increased lethargy since then which was attributed to jet lag. She was having significant fatigue and her was concerned also about her mental status changes and shortness of breath, and she was brought in for further evaluation. The patient noted to have O2 sats in low 80s and was placed on facemask. She was febrile to T-max of 103 at that time, hemodynamically stable, although there had been significant tachycardia. She was found to be in acute respiratory distress. She was alert, but confused as per admission history and physical documentation. There was also some concern with altered mental status during the hospital stay. She was also found to have significantly elevated white count, elevated INR and creatinine. She also was found to have significantly elevated LFTs. CT of the abdomen showed fatty infiltration of the liver. Her BNP was also significantly elevated. She was admitted with a diagnosis of acute liver injury, acute kidney injury, febrile illness, AFib with rapid ventricular rate, tjypm-ka-buqmxpq systolic CHF, recent STEMI, acute hypoxemic respiratory failure secondary to pulmonary edema and possible bronchitis/pneumonia. The patient had complicated stay with multiple issues. Given significantly elevated LFTs and no antecedent inciting event, she was at one point also considered for transfer to place with facility for liver transplantation. She had shown improvement throughout this hospitalization. TTE was concerning for recent CT. She has received Acetadote protocol for liver injury. The patient subsequently improved and transferred to regular medical floor. She had another episode of altered mental status yesterday. Her white count has improved and continued to be elevated, which is attributed to her steroids. She did not have any evidence of CO2 retention on her labs. She had 1 episode of fever on 06/08/19 since admission; otherwise, has remained afebrile. She remained hemodynamically stable. Serological workup did not reveal any positive etiology, other than Fitz-Caballero virus DNA PCR being positive. She was consulted by GI and cardiology. The patient had CT scan of the chest for evaluation of her shortness of breath issues and hypoxemia. I personally reviewed CT scan of the chest and with the patient today - the patient with evidence of emphysematous changes bilaterally. The patient with evidence of bilateral pleural effusions. The patient with evidence of soft tissue density in the right lower lobe with surrounding areas of bronchiectatic airways. No significant mediastinal or hilar adenopathy was noted. V/Q scan was low probability for pulmonary embolism. The patient underwent repeat chest x-ray, which did not reveal any significant change from the prior one. The patient seen and examined at bedside. Her also at bedside. The patient reported no significant shortness of breath. The patient reports having cough and is not able to expectorate the phlegm. She does appear to be confused at times. She is currently on O2 supplementation at 2 L per minute with O2 sats around 97%. She did not appear to be in any significant distress. PAST MEDICAL HISTORY: 1. COPD. 2. Coronary artery disease. 3. AFib, on Xarelto. 4. CHF. 5. Hypertension. 6. CT in the past. 7. Mitral valve regurgitation. 8. CVA with some dysphagia and right homonymous hemianopia. 9. Seizure disorder. 10. Alcohol abuse. 11. Osteoporosis. 12. History of humerus fracture in the past. 13. Mild dysphagia due to CVA. 14. Hematuria. PAST SURGICAL HISTORY: Fibroid resection. ALLERGIES: No known drug allergies. FAMILY HISTORY: CVA. SOCIAL HISTORY: Former smoker, quit in 1994, 27.5-pack-year smoking history. Daily alcohol intake about 3 glasses of wine. No drug abuse. Lives in [facility]. REVIEW OF SYSTEMS: All 12 systems reviewed and as per HPI. PHYSICAL EXAM: Elderly female in bed, in no apparent distress. Vital Signs: Temperature 97.9, pulse 64 beats per minute, respiratory rate 16 per minute, O2 sat 96% on 2 L, blood pressure 112/63. HEENT: Pupils equal, reactive to light. Mucous membranes moist. Lungs: Good air entry bilaterally. Fine crackles at the bases. No wheeze. Cardiovascular: S1, S2 present. Abdomen: Soft, nontender, nondistended. Bowel sounds present. Extremities: Normal range of motion. Neuro: Alert, awake. DIAGNOSTIC STUDIES/LAB DATA: Laboratory Exam: WBC count 18.3, hemoglobin 11.7 , hematocrit 36, platelet count 189. PTT while on heparin drip 148.4. Sodium 141, potassium 3.9, chloride 101, bicarb 30, BUN 43, creatinine 1.43. Significantly elevated LFTs. CRP elevated. BNP elevated too. Procalcitonin 1.6, which is elevated too. Blood cultures, negative to date. Urine cultures, no growth to date. CT scan of the chest as described above in HPI. IMPRESSION AND RECOMMENDATIONS: 79-year-old female with multiple comorbidities , admitted with fever, shortness of breath after recent travel, found to have acute myocardial infarction, acute renal failure, and acute liver injury. The patient also with hypoxemic respiratory failure, which is most likely from V /Q mismatch from fluid overload. She has bilateral pleural effusions and prominence of interstitium. I do not think she is in acute chronic obstructive pulmonary disease exacerbation. She does appear to have nodular opacity in right lower lobe, which could be from mucus inspissation. I have a concern of aspiration given episodes of altered mental status and significant ETOH use. Agree with broadening of antibiotic coverage with Zosyn. She is also on steroids for possibility of airway inflammation. She is requiring O2 at 2 L, which can further be titrated. She would benefit from flutter device and mucus clearance technique. I would follow up on the CT findings in 2 months to ensure resolution of the opacity. Out of bed to chair as tolerated. Thank you for allowing me to participate in the care of your patient. Will follow up with you. [id number]/[facility] #: [id number] IAN
[2019-06-16] MEDS: Heparin DRIP 25,000 UNITS(*) 25,000 UNITS/500 ML BAG IV SCH (15:57)
[2019-06-16] MEDS: Digoxin TAB* 0.125 MG PO SCH (16:39)
[2019-06-16] MEDS ORDERED: Warfarin TAB(*) 2 MG PO ONE (17:00)
[2019-06-17] MEDS: ZOSYN 3.375 GM Q8H per EXTENDED INFUSION IVPB SCH ×6 (01:10→18:46)
[2019-06-17 07:56] LABS: Hematocrit 33 % (35-47); Hemoglobin 10.7 g/dL (12.0-16.0); Mean Platelet Volume 9.7 fL (7.4-10.4); Platelet Count 211 10^3/uL (150-450)
[2019-06-17 08:05] LABS: Activated Partial Thrombo Time 77.3 seconds (26.0-38.0); INR 1.33 (0.82-1.09)
[2019-06-17 08:23] LABS: Albumin 2.9 g/dL (3.2-5.2); Albumin/Globulin Ratio 0.9 (1-3); BUN/Creatinine Ratio 31.8 (8-20); C Reactive Protein 36.48 mg/L (<8.01); Calcium 7.8 mg/dL (8.6-10.3); EGFR African American 48.2 (>60); EGFR Non-African American 39.9 (>60); Globulin 3.2 g/dL (2-4); Indirect Bilirubin 0.8 mg/dL (0.3-1.0); Potassium 3.6 mmol/L (3.5-5.0); Total Bilirubin 1.5 mg/dL (0.2-1.0); Total Protein 6.1 g/dL (6.4-8.9)
[2019-06-17 09:00] LABS: Digoxin 1.3 ng/ml (0.8-2.0)
[2019-06-17] MEDS: Carvedilol TAB* 3.125 MG PO SCH ×2 (09:47→21:00)
[2019-06-17] MEDS: Potassium Chlor TAB* 20 MEQ TAB.ER PO SCH ×2 (09:47→21:00)
[2019-06-17] MEDS: predniSONE TAB* 20 MG PO SCH ×2 (09:47→21:00)
[2019-06-17] MEDS: Furosemide TAB* 20 MG PO SCH ×2 (09:47→17:53)
[2019-06-17] MEDS: Aspirin 81 mg CHEW TAB* 81 MG TAB.CHEW PO SCH (09:47)
[2019-06-17] MEDS ORDERED: Warfarin TAB(*) 2 MG PO ONE (17:00)
[2019-06-17] MEDS: Digoxin TAB* 0.125 MG PO SCH (17:54)
[2019-06-17] MEDS: Heparin VIAL(*) 5000 UNITS/ML VIAL (FIVE THOUSAND) IV PRN (19:06)
[2019-06-17] MEDS: Heparin DRIP 25,000 UNITS(*) 25,000 UNITS/500 ML BAG IV SCH (22:54)
[2019-06-18] MEDS: ZOSYN 3.375 GM Q8H per EXTENDED INFUSION IVPB SCH ×6 (01:16→17:47)
[2019-06-18 06:32] LABS: ABS Eosinophils 0.1 10^3/ul (0-0.6); ABS Lymphocytes 2.2 10^3/ul (1.0-4.8); ABS Neutrophils 14.6 10^3/ul (1.5-7.7); Eosinophil % 0.4 %; Hematocrit 31 % (35-47); Hemoglobin 10.4 g/dL (12.0-16.0); Lymphocyte % 12.4 %; Mean Corpuscular HGB Conc 33 g/dL (31-36); Mean Corpuscular Hemoglobin 28 pg (27-31); Mean Corpuscular Volume 86 fL (80-97); Platelet Count 215 10^3/uL (150-450); Red Blood Count 3.65 10^6 /uL (3.70-4.87); Red Cell Distribution Width 18 % (10-15); White Blood Count 17.9 10^3/uL (3.5-10.8)
[2019-06-18 06:39] LABS: INR 1.53 (0.82-1.09)
[2019-06-18 06:51] LABS: Albumin 2.8 g/dL (3.2-5.2); Albumin/Globulin Ratio 0.9 (1-3); BUN/Creatinine Ratio 33.9 (8-20); C Reactive Protein 21.08 mg/L (<8.01); Calcium 7.6 mg/dL (8.6-10.3); EGFR African American 53.5 (>60); EGFR Non-African American 44.2 (>60); Globulin 3.1 g/dL (2-4); Magnesium 1.5 mg/dL (1.9-2.7); Potassium 3.6 mmol/L (3.5-5.0); Total Bilirubin 1.4 mg/dL (0.2-1.0); Total Protein 5.9 g/dL (6.4-8.9)
[2019-06-18] MEDS: Furosemide TAB* 20 MG PO SCH ×2 (09:11→17:47)
[2019-06-18] MEDS: Carvedilol TAB* 3.125 MG PO SCH ×2 (09:11→22:19)
[2019-06-18] MEDS: predniSONE TAB* 20 MG PO SCH (09:11)
[2019-06-18] MEDS: Aspirin 81 mg CHEW TAB* 81 MG TAB.CHEW PO SCH (09:11)
--- NOTE | 2019-06-18 09:34 | PN ---
Subjective - Subjective Reason for Note: Progress Note History: She is disoriented today - person, but not place (clinic) or time (early spring 2014). She has no pain, fevers or chills and she is sitting in a chair eating breakfast. She was able to discuss [employer] Met[employer] cogently - she has a copy of this book next to her. Active Problems: Active Problems Acute myocardial infarction (Acute) I21.9 Acute renal failure (Acute) CHF, acute (Acute) I50.9 Hypokalemia (Acute) E87.6 Ischemic hepatitis (Acute) K75.9 Leukocytosis (Acute) D72.829 Pleural effusion, bilateral (Acute) J90 Pneumonia (Acute) J18.9 Respiratory distress (Acute) R06.03 Current Medications: Current Medications Aspirin (Aspirin 81 Mg Chew Tab*) 81 mg PO DAILY [facility] Last Admin: 06/18/19 09:11 Dose: 81 mg Carvedilol (Coreg Tab*) 3.125 mg PO BID [facility] Last Admin: 06/18/19 09:11 Dose: 3.125 mg Digoxin (Lanoxin Tab*) 0.125 mg PO QPM [facility] Last Admin: 06/17/19 17:54 Dose: 0.125 mg Furosemide (Lasix Tab*) 20 mg PO 0800,1700 [facility] Last Admin: 06/18/19 09:11 Dose: 20 mg Heparin Sodium (Porcine) (Heparin Vial(*)) 0 units IV .BOLUS PRN PRN Reason: HEPARIN DRIP PROTOCOL Last Admin: 06/17/19 19:06 Dose: 4,050 units Heparin Sodium/Dextrose (Heparin Drip 25,000 Units(*)) 25,000 units in 500 mls @ 0 mls/hr IV PER RATE [facility]; Protocol Last Admin: 06/17/19 22:54 Dose: 22 mls/hr Piperacillin Sod/Tazobactam (Sod 3.375 gm/ Sodium Chloride) 100 mls @ 25 mls/ hr IVPB Q8H [facility] Last Admin: 06/18/19 01:16 Dose: 25 mls/hr Levalbuterol HCl (Xopenex 0.63mg/3ml Neb*) 0.31 mg INH Q6H PRN PRN Reason: SOB/WHEEZING Ondansetron HCl (Zofran Inj*) 4 mg IV Q6H PRN PRN Reason: NAUSEA/VOMITING Pharmacy Consult (Zosyn Per Pharmacy*) 1 note FOLLOW UP .ZOSYN PER PHARMACY [facility] Pharmacy Profile Note (Coumadin Per Pharmacy*) 0 note FOLLOW UP .PER PHARMACY [facility]; Protocol Prednisone (Deltasone Tab*) 20 mg PO BID [facility] Last Admin: 06/18/19 09:11 Dose: 20 mg Warfarin Sodium (Coumadin Tab(*)) 3 mg PO 1700 ONE Stop: 06/18/19 17:01 Home Medications: Home Medications Medication Instructions Recorded Confirmed Type Digoxin TAB* [Lanoxin TAB*] 0.125 mg PO BID 11/14/17 06/08/19 History levETIRAcetam TAB* [Keppra TAB*] 750 mg PO BID tab 11/16/17 06/08/19 Rx Carvedilol TAB* [Coreg TAB*] 3.125 mg PO BID 03/10/18 06/08/19 History Aspirin 81 mg CHEW TAB* 81 mg PO DAILY 12/01/18 06/08/19 History Atorvastatin* [Lipitor 20 MG*] 20 mg PO BEDTIME 12/01/18 06/08/19 History Rivaroxaban TAB(*) [Xarelto 15 15 mg PO DAILY 12/01/18 06/08/19 History mg(*)] lamoTRIgine TAB(*) [Lamictal 100 mg PO BID 12/01/18 06/08/19 History TAB(*)] Allergies: Allergies Allergy/AdvReac Type Severity Reaction Status Date / Time No Known Allergies Allergy Verified 02/12/17 08:03 Objective - Vital Signs Vital Signs: Vital Signs 06/17/19 06/17/19 06/17/19 11:15 15:15 19:54 Temperature 97.4 F 97.6 F 97.5 F Pulse Rate 90 86 79 Respiratory 16 24 22 Rate Blood Pressure 106/55 107/64 108/70 (mmHg) O2 Sat by Pulse 98 96 Oximetry 06/17/19 06/17/19 06/17/19 19:59 20:00 23:45 Temperature 97.3 F Pulse Rate 98 85 Respiratory 18 22 18 Rate Blood Pressure 128/52 (mmHg) O2 Sat by Pulse 96 98 Oximetry 06/18/19 06/18/19 03:15 07:15 Temperature 98.4 F 97.6 F Pulse Rate 63 76 Respiratory 16 18 Rate Blood Pressure 120/40 133/77 (mmHg) O2 Sat by Pulse 100 99 Oximetry - Intake and Output Intake and Output: Intake & Output 06/15/19 06/16/19 06/17/19 06/18/19 11:59 11:59 11:59 11:59 Intake Total 1422 1212 1810 2122 Output Total 400 100 840 150 Balance 1022 5140 580 2634 Intake: Heparin 1362 Oral 1422 1212 1810 760 Output: Urine 400 840 150 Liquid Stool 100 Other: Estimated Void Large Medium Large Medium # Bowel Movements 3 1 0 1 Estimated Stool Amount Medium Medium Medium Small # Voids 3 1 1 1 ADLs: Meal Record Start: 06/08/19 17: 12 Freq: ,,18 Status: Complete Protocol: Created 06/08/19 17:12 System (Rec: 06/08/19 17:12 System ICU-C15) Document 06/08/19 18:00 [id number] (Rec: 06/08/19 18:02 TKH3774 ICU-C15) Document 06/09/19 17:54 HRY2061 (Rec: 06/09/19 17:54 JUE9730 ICU-C10) Document 06/10/19 09:00 ALZ9772 (Rec: 06/10/19 11:30 UIH0959 ICU-C25) Document 06/10/19 13:00 BSW8634 (Rec: 06/10/19 18:17 UBL6860 ICU-C25) Document 06/10/19 18:00 BUH6363 (Rec: 06/10/19 19:47 AXK1720 ICU-C15) Document 06/11/19 09:00 OJH6635 (Rec: 06/11/19 11:50 EOL2072 ICU-C25) ADLs: Meal Record Start: 06/11/19 11: 54 Freq: DAILY@0900,1400,1800 Status: Active Protocol: Created 06/11/19 11:54 OWF8529 (Rec: 06/11/19 11:54 WCR7980 ICU-C25) Document 06/12/19 09:00 LWT8446 (Rec: 06/12/19 09:44 ZRN4623 MED-C09) Document 06/12/19 14:00 SBE6766 (Rec: 06/12/19 15:15 OOO0551 MED-C02) Document 06/12/19 18:00 RQR1798 (Rec: 06/12/19 18:32 MBV2983 MED-C02) Document 06/13/19 09:00 RNN3718 (Rec: 06/13/19 09:20 SFD3753 MED-C02) Document 06/13/19 14:00 RFT7013 (Rec: 06/13/19 14:12 VUH6720 MED-C02) Document 06/13/19 18:00 EMA2661 (Rec: 06/13/19 18:30 JZZ9494 MED-C02) Document 06/14/19 09:00 IDT2401 (Rec: 06/14/19 18:58 TQG7096 MED-C15) Document 06/14/19 18:00 GSO4022 (Rec: 06/14/19 20:49 NGD7113 MED-C02) Document 06/15/19 09:00 GHI6868 (Rec: 06/15/19 17:20 MSI1859 MED-C02) Document 06/15/19 14:00 GYV0404 (Rec: 06/15/19 17:20 TYW3875 MED-C02) Document 06/15/19 18:00 DRS0435 (Rec: 06/15/19 21:26 BYM0518 MED-C09) Document 06/16/19 09:00 PVT1135 (Rec: 06/16/19 10:51 KIO0172 MED-C11) Document 06/16/19 14:00 NAH0592 (Rec: 06/16/19 17:19 SCG3488 MED-C11) Document 06/16/19 15:30 SJI2077 (Rec: 06/16/19 17:44 CMU0607 MED-C15) Document 06/16/19 19:11 FKT8831 (Rec: 06/16/19 19:11 AAR8762 MED-C15) Document 06/17/19 09:00 GYF4301 (Rec: 06/17/19 11:53 LRL2910 MED-C09) Document 06/17/19 14:00 VRF4157 (Rec: 06/17/19 14:30 CIE7628 MED-C09) Document 06/17/19 18:00 URZ8278 (Rec: 06/17/19 22:50 IMU1435 MED-C02) Intake and Output Start: 06/08/19 12: 40 Freq: Status: Active Protocol: Created 06/08/19 12:40 System (Rec: 06/08/19 12:40 System EDRM-C04) Intake and Output Start: 06/08/19 17: 12 Freq: Q1HR Status: Complete Protocol: Created 06/08/19 17:12 System (Rec: 06/08/19 17:12 System ICU-C15) Document 06/08/19 18:51 EWQ0389 (Rec: 06/08/19 18:51 YXM6283 ICU-M29) Document 06/08/19 20:00 RUU7429 (Rec: 06/08/19 20:06 ZTS9639 ICU-M33) Document 06/08/19 21:00 YBM3034 (Rec: 06/08/19 21:56 GMP3355 ICU-M33) Document 06/08/19 21:56 ZIG4846 (Rec: 06/08/19 21:58 VAI0027 ICU-M33) Document 06/08/19 23:00 DAT4572 (Rec: 06/08/19 23:03 DJW6917 ICU-C15) Document 06/09/19 00:00 ATR6395 (Rec: 06/09/19 00:13 YAF3177 ICU-C15) Document 06/09/19 01:00 KDL0518 (Rec: 06/09/19 02:37 SPY9861 ICU-C15) Document 06/09/19 02:00 TEJ9779 (Rec: 06/09/19 02:37 OCJ0839 ICU-C15) Document 06/09/19 03:00 CXF6923 (Rec: 06/09/19 03:16 QXU2579 ICU-M33) Document 06/09/19 04:00 RTU7252 (Rec: 06/09/19 04:14 KIH5719 ICU-M33) Document 06/09/19 05:00 MAL8186 (Rec: 06/09/19 05:26 WUY3285 ICU-C15) Document 06/09/19 06:00 VKO8800 (Rec: 06/09/19 06:13 TBO3224 ICU-M33) Document 06/09/19 07:00 QOK0769 (Rec: 06/09/19 08:10 OOA0314 ICU-C15) Document 06/09/19 08:00 OMH9102 (Rec: 06/09/19 08:46 MGQ1350 IMG-C14) Document 06/09/19 09:00 VHQ1368 (Rec: 06/09/19 10:41 PTU4126 ICU-M33) Document 06/09/19 10:00 MQN4878 (Rec: 06/09/19 10:41 KSQ8343 ICU-M33) Document 06/09/19 11:00 SFE3369 (Rec: 06/09/19 14:08 GME7461 ICU-C15) Document 06/09/19 12:00 GGV2665 (Rec: 06/09/19 14:08 SZQ7732 ICU-C15) Document 06/09/19 13:00 HOK4486 (Rec: 06/09/19 14:09 XEV5190 ICU-C15) Document 06/09/19 14:00 STB2663 (Rec: 06/09/19 14:09 SET6980 ICU-C15) Document 06/09/19 14:15 GTS7557 (Rec: 06/09/19 15:11 UGY1945 ICU-C15) Document 06/09/19 15:00 GDU0297 (Rec: 06/09/19 16:04 OOJ3036 ICU-C10) Document 06/09/19 16:00 NRR1066 (Rec: 06/09/19 16:04 TYV2171 ICU-C10) Document 06/09/19 17:00 GQJ1791 (Rec: 06/09/19 17:21 UGT8834 ICU-C10) Document 06/09/19 18:00 HAA9086 (Rec: 06/09/19 18:11 NXV5003 ICU-C10) Document 06/09/19 18:51 DSP1380 (Rec: 06/09/19 18:51 OKI5957 ICU-M33) Document 06/09/19 20:00 NLJ4184 (Rec: 06/09/19 21:05 DFG1238 ICU-M33) Document 06/09/19 21:00 ERP3342 (Rec: 06/09/19 21:05 DQM0267 ICU-M33) Document 06/09/19 22:00 ZFZ0855 (Rec: 06/09/19 22:10 RTP0627 ICU-C16) Document 06/09/19 22:56 AUI8347 (Rec: 06/09/19 22:56 FGH9842 ICU-C16) Document 06/10/19 00:00 AWJ0785 (Rec: 06/10/19 00:25 MWN8674 ICU-M33) Document 06/10/19 01:00 BVK2882 (Rec: 06/10/19 01:11 UGK6016 ICU-C16) Document 06/10/19 02:00 CZP8084 (Rec: 06/10/19 02:05 UBH3085 ICU-C16) Document 06/10/19 03:00 OGH8312 (Rec: 06/10/19 04:15 SFE5929 ICU-C12) Document 06/10/19 04:00 FMP0852 (Rec: 06/10/19 04:15 HHZ5671 ICU-C12) Document 06/10/19 05:00 TDW3791 (Rec: 06/10/19 06:17 BEJ5795 ICU-C16) Document 06/10/19 06:00 CNM7088 (Rec: 06/10/19 06:17 YQS8851 ICU-C16) Document 06/10/19 07:00 CQE5915 (Rec: 06/10/19 08:14 MMG9582 ICU-M33) Document 06/10/19 08:00 ZRA1090 (Rec: 06/10/19 08:14 TOT3299 ICU-M33) Document 06/10/19 09:00 ILK3059 (Rec: 06/10/19 10:34 YGA1460 ICU-C25) Document 06/10/19 10:00 LEU2848 (Rec: 06/10/19 10:34 SCR6042 ICU-C25) Document 06/10/19 11:00 LKS3904 (Rec: 06/10/19 11:15 PBM3673 ICU-C25) Document 06/10/19 11:58 VZQ3509 (Rec: 06/10/19 11:58 MRK9481 ICU-C14) Document 06/10/19 13:00 NUE3256 (Rec: 06/10/19 13:02 FMS5874 ICU-C16) Document 06/10/19 14:00 OGN8850 (Rec: 06/10/19 14:23 IFJ0454 ICU-M31) Document 06/10/19 15:00 BQZ0241 (Rec: 06/10/19 17:20 UQR2263 ICU-M33) Document 06/10/19 15:00 XDJ9081 (Rec: 06/10/19 17:29 HSI1984 ICU-M33) Document 06/10/19 16:00 FZP2879 (Rec: 06/10/19 17:20 COV4105 ICU-M33) Document 06/10/19 17:00 VLE5623 (Rec: 06/10/19 17:20 OWN9874 ICU-M33) Document 06/10/19 18:00 CCJ1671 (Rec: 06/10/19 18:22 WJC6769 ICU-C25) Document 06/10/19 19:00 FGE1415 (Rec: 06/10/19 19:51 ITF1055 ICU-M33) Document 06/10/19 20:00 ZOE9946 (Rec: 06/10/19 20:24 FIM8887 ICU-C15) Document 06/10/19 21:00 ROU8651 (Rec: 06/10/19 22:03 DIW2387 ICU-C15) Document 06/10/19 22:00 JMV1265 (Rec: 06/10/19 22:15 FUH4351 ICU-C15) Document 06/10/19 23:00 MJH5736 (Rec: 06/10/19 23:29 XWW0077 ICU-C15) Document 06/11/19 00:00 TSA2758 (Rec: 06/11/19 00:31 MRS3950 ICU-C15) Document 06/11/19 01:00 INF6517 (Rec: 06/11/19 01:27 JWO5673 ICU-C15) Document 06/11/19 02:00 UGW6781 (Rec: 06/11/19 02:25 MIG3890 ICU-C15) Document 06/11/19 03:00 KMV6406 (Rec: 06/11/19 03:11 FMN8514 ICU-C15) Document 06/11/19 04:00 OSX4977 (Rec: 06/11/19 04:21 QPN9514 ICU-M33) Document 06/11/19 05:00 OKA2016 (Rec: 06/11/19 05:23 TGG7229 ICU-C15) Document 06/11/19 06:00 NFJ6999 (Rec: 06/11/19 06:13 LZG7624 ICU-C15) Document 06/11/19 07:00 HCR4766 (Rec: 06/11/19 08:10 WAJ2602 ICU-C25) Document 06/11/19 08:00 ZQW4078 (Rec: 06/11/19 08:10 RAA4742 ICU-C25) Document 06/11/19 09:00 KBN1344 (Rec: 06/11/19 11:33 LNP1034 ICU-C25) Document 06/11/19 10:00 CMG8270 (Rec: 06/11/19 11:33 CAW2900 ICU-C25) Document 06/11/19 11:00 KAU1827 (Rec: 06/11/19 11:33 ORA6343 ICU-C25) Intake and Output Start: 06/11/19 11: 54 Freq: DAILY@0600,1400,2200 Status: Active Protocol: Created 06/11/19 11:54 BYH2428 (Rec: 06/11/19 11:54 PBM8757 ICU-C25) Document 06/11/19 22:00 YST6375 (Rec: 06/11/19 22:37 WOX3686 MED-C11) Document 06/12/19 06:00 FRK1828 (Rec: 06/12/19 06:31 VGX6474 MED-C11) Document 06/12/19 14:00 KHH7468 (Rec: 06/12/19 15:15 ZVP9741 MED-C02) Document 06/12/19 22:00 NCA5161 (Rec: 06/12/19 23:33 XWY1273 MED-C11) Document 06/13/19 05:03 YNI4409 (Rec: 06/13/19 05:04 YBG7178 MED-C11) Document 06/13/19 06:00 TCD0999 (Rec: 06/13/19 06:13 NLW1126 MED-C11) Document 06/13/19 14:00 QLD5951 (Rec: 06/13/19 14:12 YPL0885 MED-C02) Document 06/13/19 22:00 ENZ5998 (Rec: 06/13/19 22:11 ATV7000 MED-C26) Document 06/14/19 05:01 CGM7683 (Rec: 06/14/19 05:02 XQN2832 MED-C26) Document 06/14/19 14:00 TQC2021 (Rec: 06/14/19 14:47 TYQ4904 MED-C09) Document 06/14/19 22:00 BSX0751 (Rec: 06/14/19 22:10 JJZ2873 MED-C02) Document 06/15/19 06:00 CFQ4842 (Rec: 06/15/19 06:17 ENM6436 MED-C02) Document 06/15/19 14:00 IIN5842 (Rec: 06/15/19 17:28 UHT4367 MED-C02) Document 06/15/19 18:53 QGZ0144 (Rec: 06/15/19 18:53 CYU3805 MED-C02) Document 06/15/19 21:27 TFM9079 (Rec: 06/15/19 21:27 URK9631 MED-C09) Document 06/16/19 05:02 IRT0298 (Rec: 06/16/19 05:03 IPY7578 MED-C09) Document 06/16/19 17:11 TZB8708 (Rec: 06/16/19 17:12 KVV1425 MED-C15) Document 06/16/19 21:10 FUX2172 (Rec: 06/16/19 21:11 BWF7630 MED-C09) Document 06/17/19 06:00 KEY6888 (Rec: 06/17/19 06:01 NJQ4816 MED-C09) Document 06/17/19 13:37 WNK8934 (Rec: 06/17/19 13:37 QPD5409 MED-C11) Document 06/17/19 22:00 ZOF7708 (Rec: 06/17/19 22:56 RFY5613 MED-C02) Document 06/18/19 05:24 IJG8497 (Rec: 06/18/19 05:25 HGU9055 MED-C02) - Physical Exam General Physical Exam Comment: She is comfortable and in no distress General: No Cyanosis, No Anemia, No Jaundice, No Clubbing Lungs and Chest: Yes: Chest Expansion Full, Chest Expansion Symetrica, Crackles , Wheezes, Respiratory Distress. No: Percussion Note Resonant - dull bases, Vessicular Breath Sounds, Use of Accessory Muscles Heart Rate and Rhythm: Regular Additional Cardiovascular: Yes: Normal Heart Sounds. No: Heart Murmur, Pedal Edema Abdominal Exam: Yes: Soft. No: Distention, Abdominal Tenderness Results - Results Lab Results: Laboratory Results - last 24 hr 06/17/19 06/18/19 06/18/19 17:28 03:16 04:52 WBC RBC Hgb Hct MCV MCH MCHC RDW Plt Count MPV Neut % (Auto) Lymph % (Auto) [place] % (Auto) Eos % (Auto) Baso % (Auto) Absolute Neuts (auto) Absolute Lymphs (auto) Absolute Monos (auto) Absolute Eos (auto) Absolute Basos (auto) Absolute Nucleated RBC Nucleated RBC % INR (Anticoag Therapy) APTT 43.5 H >240.0 H* 106.9 H* Sodium Potassium Chloride Carbon Dioxide Anion Gap BUN Creatinine Est GFR ( Amer) Est GFR (Non-Af Amer) BUN/Creatinine Ratio Glucose Calcium Phosphorus Magnesium Total Bilirubin AST ALT Alkaline Phosphatase C-Reactive Protein B-Natriuretic Peptide Total Protein Albumin Globulin Albumin/Globulin Ratio 06/18/19 06/18/19 06/18/19 06:06 06:06 06:06 WBC 17.9 H RBC 3.65 L Hgb 10.4 L Hct 31 L MCV 86 MCH 28 MCHC 33 RDW 18 H Plt Count 215 MPV 10.0 Neut % (Auto) 81.3 Lymph % (Auto) 12.4 Hamb[place] % (Auto) 5.7 Eos % (Auto) 0.4 Baso % (Auto) 0.2 Absolute Neuts (auto) 14.6 H Absolute Lymphs (auto) 2.2 Absolute Monos (auto) 1.0 H Absolute Eos (auto) 0.1 Absolute Basos (auto) 0.0 Absolute Nucleated RBC 0.0 Nucleated RBC % 0.0 INR (Anticoag Therapy) APTT Sodium 140 Potassium 3.6 Chloride 102 Carbon Dioxide 27 Anion Gap 11 BUN 40 H Creatinine 1.18 H Est GFR ( Amer) 53.5 Est GFR (Non-Af Amer) 44.2 BUN/Creatinine Ratio 33.9 H Glucose 164 H Calcium 7.6 L Phosphorus 4.0 Magnesium 1.5 L Total Bilirubin 1.40 H AST 61 H ALT 314 H Alkaline Phosphatase 160 H C-Reactive Protein 21.08 H B-Natriuretic Peptide 616 H Total Protein 5.9 L Albumin 2.8 L Globulin 3.1 Albumin/Globulin Ratio 0.9 L 07/21/19 06:06 WBC RBC Hgb Hct MCV MCH MCHC RDW Plt Count MPV Neut % (Auto) Lymph % (Auto) [place] % (Auto) Eos % (Auto) Baso % (Auto) Absolute Neuts (auto) Absolute Lymphs (auto) Absolute Monos (auto) Absolute Eos (auto) Absolute Basos (auto) Absolute Nucleated RBC Nucleated RBC % INR (Anticoag Therapy) 1.53 H APTT Sodium Potassium Chloride Carbon Dioxide Anion Gap BUN Creatinine Est GFR ( Amer) Est GFR (Non-Af Amer) BUN/Creatinine Ratio Glucose Calcium Phosphorus Magnesium Total Bilirubin AST ALT Alkaline Phosphatase C-Reactive Protein B-Natriuretic Peptide Total Protein Albumin Globulin Albumin/Globulin Ratio Radiology Results: Patient Name: ELHAM CHOPRA Medical Record#: [id number] Ordering Physician: Jigar Biswas MD Acct.#: [id number] : 1940 Age: 79 Sex: F Location: [address] [place] [address] MEDICAL Exam Date: 06/16/19740 ADM Status: ADM IN Order Information: CHEST PA & LAT 2 VWS Accession Number: [id number] CPT: 53258 Indication: Pneumonia. 2 views of the chest including dual energy PA views demonstrates cardiomegaly. Interstitial edema consistent with vascular congestion is noted. Bilateral pleural effusions are noted. No evidence of alveolar consolidation is noted. No changes noted since previous exam of June 11, 2019. IMPRESSION: Cardiomegaly with bilateral pleural effusion. Interstitial edema is noted. <Electronically signed by Perlita Farley MD in [place]> 06/16/19 1531 Dictated By: Perlita Farley MD Dictated Date/Time: 06/16/19 1531 Transcribed Date/Time: 06/16/19 1528 Copy to: CC:Jigar Biswas MD; Timothy Fong MD; Jong Nicolas MD; Luz Irby MD; Belle Tijerina MD Imaging - [facility] I Assessment - Problem List Assessment: Patient Problems Acute myocardial infarction (Acute) Acute renal failure (Acute) CHF, acute (Acute) Hypokalemia (Acute) Ischemic hepatitis (Acute) Leukocytosis (Acute) Pleural effusion, bilateral (Acute) Pneumonia (Acute) Respiratory distress (Acute) Alcohol dependence (Chronic) Alcoholism (Chronic) Anticoagulated (Chronic) Atrial fibrillation (Chronic) COPD (chronic obstructive pulmonary disease) (Chronic) 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 I am managing this with diuretic therapy. The pleural effusions are small on direct inspection of the CXR. She has cardiomegaly. Acute renal failure (Acute) This is slowly improving Hypokalemia (Acute) K 3.6 - I would prefer >4.0. I will start her on a small dose of spironolactone. I note she has EBV DNA 125 - this is low, the test is so sensitive that she may be shedding some EBV from carriage. I will look into whether this could be of any importance pathogenically in her clinical course. There is no specific treatment Ischemic hepatitis (Acute) Resolving Leukocytosis (Acute) ongoing - secondary to steroids. I will trim this dose down Pneumonia (Acute) Respiratory distress (Acute) COPD exacerbation: There is no clear sign of this on the CXR - however, she is improving with zosyn Anticoagulated (Chronic) Atrial fibrillation (Chronic) She has peaks and troughs in her APTT. I wonder if it is safer to just allow her warfarin to kick in without the heparin infusion. 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 I also spoke with her Kevin Chopra and updated him.
[2019-06-18] MEDS: Spironolactone TAB* 25 MG PO SCH (10:16)
[2019-06-18] MEDS ORDERED: Warfarin TAB(*) 4 MG PO ONE (17:00)
[2019-06-18] MEDS ORDERED: Warfarin TAB(*) 3 MG PO ONE (17:00)
[2019-06-18] MEDS: Digoxin TAB* 0.125 MG PO SCH (17:47)
[2019-06-19] MEDS: ZOSYN 3.375 GM Q8H per EXTENDED INFUSION IVPB SCH ×2 (02:14)
[2019-06-19 07:00] LABS: INR 2.53 (0.82-1.09)
[2019-06-19 07:12] LABS: Calcium 7.9 mg/dL (8.6-10.3); Potassium 3.8 mmol/L (3.5-5.0)
[2019-06-19 07:18] LABS: BUN/Creatinine Ratio 37.2 (8-20); EGFR African American 56.2 (>60); EGFR Non-African American 46.4 (>60)
--- NOTE | 2019-06-19 07:40 | PN ---
Subjective - Subjective Reason for Note: Discharge Note History: She is physically much improved, but she is disoriented. "Why am I in [place]". She remained in [place] despite attempts to orient her. She denies any pain, fevers or chills. She has no physical complaints, but she is aware of her disorientation and is distressed by it. She was awake during the night, according to her room mate. 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 History of CVA (cerebrovascular accident) (Chronic) Z86.73 Osteoporosis (Chronic) M81.0 Current Medications: Current Medications Aspirin (Aspirin 81 Mg Chew Tab*) 81 mg PO DAILY [facility] Last Admin: 06/18/19 09:11 Dose: 81 mg Carvedilol (Coreg Tab*) 3.125 mg PO BID [facility] Last Admin: 06/18/19 22:19 Dose: 3.125 mg Digoxin (Lanoxin Tab*) 0.125 mg PO QPM [facility] Last Admin: 06/18/19 17:47 Dose: 0.125 mg Furosemide (Lasix Tab*) 20 mg PO 0800,1700 [facility] Last Admin: 06/18/19 17:47 Dose: 20 mg Piperacillin Sod/Tazobactam (Sod 3.375 gm/ Sodium Chloride) 100 mls @ 25 mls/ hr IVPB Q8H [facility] Last Admin: 06/19/19 02:14 Dose: 25 mls/hr Levalbuterol HCl (Xopenex 0.63mg/3ml Neb*) 0.31 mg INH Q6H PRN PRN Reason: SOB/WHEEZING Pharmacy Consult (Zosyn Per Pharmacy*) 1 note FOLLOW UP .ZOSYN PER PHARMACY [facility] Pharmacy Profile Note (Coumadin Per Pharmacy*) 0 note FOLLOW UP .PER PHARMACY [facility]; Protocol Prednisone (Deltasone Tab*) 20 mg PO DAILY [facility] Spironolactone (Aldactone Tab*) 12.5 mg PO DAILY [facility] Last Admin: 06/18/19 10:16 Dose: 12.5 mg Home Medications: Home Medications Medication Instructions Recorded Confirmed Type Digoxin TAB* [Lanoxin TAB*] 0.125 mg PO BID 11/14/17 06/08/19 History levETIRAcetam TAB* [Keppra TAB*] 750 mg PO BID tab 11/16/17 06/08/19 Rx Carvedilol TAB* [Coreg TAB*] 3.125 mg PO BID 03/10/18 06/08/19 History Aspirin 81 mg CHEW TAB* 81 mg PO DAILY 12/01/18 06/08/19 History Atorvastatin* [Lipitor 20 MG*] 20 mg PO BEDTIME 12/01/18 06/08/19 History Rivaroxaban TAB(*) [Xarelto 15 15 mg PO DAILY 12/01/18 06/08/19 History mg(*)] lamoTRIgine TAB(*) [Lamictal 100 mg PO BID 12/01/18 06/08/19 History TAB(*)] Allergies: Allergies Allergy/AdvReac Type Severity Reaction Status Date / Time No Known Allergies Allergy Verified 02/12/17 08:03 Objective - Vital Signs Vital Signs: Vital Signs 06/18/19 06/18/19 06/18/19 08:00 11:15 15:15 Temperature 98.7 F Pulse Rate 74 Respiratory 22 16 16 Rate Blood Pressure 108/55 107/53 (mmHg) O2 Sat by Pulse 98 98 Oximetry 06/18/19 06/18/19 06/18/19 17:47 20:32 22:19 Temperature 98.2 F Pulse Rate 74 80 Respiratory 20 20 Rate Blood Pressure 123/65 (mmHg) O2 Sat by Pulse 96 Oximetry 06/18/19 06/19/19 23:44 02:57 Temperature 97.4 F 98.2 F Pulse Rate 82 90 Respiratory 20 20 Rate Blood Pressure 139/65 142/76 (mmHg) O2 Sat by Pulse 98 97 Oximetry - Intake and Output Intake and Output: Intake & Output 06/16/19 06/17/19 06/18/1922/19 11:59 11:59 11:59 11:59 Intake Total 1212 1810 2602 1520 Output Total 100 840 150 500 Balance 4205 073 6124 1020 Intake: Heparin 1362 Oral 1212 1810 1240 1520 Output: Urine 840 150 500 Liquid Stool 100 Other: Estimated Void Medium Large Medium Large # Bowel Movements 1 0 1 1 Estimated Stool Amount Medium Medium Small Medium # Voids 1 1 1 1 ADLs: Meal Record Start: 06/08/19 17: 12 Freq: 09,,18 Status: Complete Protocol: Created 06/08/19 17:12 System (Rec: 06/08/19 17:12 System ICU-C15) Document 06/08/19 18:00 MQX0601 (Rec: 06/08/19 18:02 [id number] ICU-C15) Document 06/09/19 17:54 OYS6637 (Rec: 06/09/19 17:54 BIY1065 ICU-C10) Document 06/10/19 09:00 RCW3603 (Rec: 06/10/19 11:30 TRL3566 ICU-C25) Document 06/10/19 13:00 TKP1533 (Rec: 06/10/19 18:17 KCG3732 ICU-C25) Document 06/10/19 18:00 RPB6740 (Rec: 06/10/19 19:47 VTN9879 ICU-C15) Document 06/11/19 09:00 HKS7258 (Rec: 06/11/19 11:50 ROA1194 ICU-C25) ADLs: Meal Record Start: 06/11/19 11: 54 Freq: DAILY@0900,1400,1800 Status: Active Protocol: Created 06/11/19 11:54 YYW4871 (Rec: 06/11/19 11:54 FHY3444 ICU-C25) Document 06/12/19 09:00 IBL8798 (Rec: 06/12/19 09:44 FLC1545 MED-C09) Document 06/12/19 14:00 IFR6022 (Rec: 06/12/19 15:15 SUF4763 MED-C02) Document 06/12/19 18:00 GHO0393 (Rec: 06/12/19 18:32 LZQ4470 MED-C02) Document 06/13/19 09:00 HTM7002 (Rec: 06/13/19 09:20 YVN0866 MED-C02) Document 06/13/19 14:00 OOR3277 (Rec: 06/13/19 14:12 QHY7883 MED-C02) Document 06/13/19 18:00 QCR4028 (Rec: 06/13/19 18:30 ASY1525 MED-C02) Document 06/14/19 09:00 HEN4886 (Rec: 06/14/19 18:58 VMT8515 MED-C15) Document 06/14/19 18:00 NRI8266 (Rec: 06/14/19 20:49 OPH7244 MED-C02) Document 06/15/19 09:00 DHN1073 (Rec: 06/15/19 17:20 RAM1058 MED-C02) Document 06/15/19 14:00 UHK4161 (Rec: 06/15/19 17:20 FAN9421 MED-C02) Document 06/15/19 18:00 CQX2912 (Rec: 06/15/19 21:26 GXN1174 MED-C09) Document 06/16/19 09:00 CWO5593 (Rec: 06/16/19 10:51 GKS2133 MED-C11) Document 06/16/19 14:00 JFE4814 (Rec: 06/16/19 17:19 KJU3821 MED-C11) Document 06/16/19 15:30 EZF2524 (Rec: 06/16/19 17:44 WOE3386 MED-C15) Document 06/16/19 19:11 NPT6805 (Rec: 06/16/19 19:11 YCW3346 MED-C15) Document 06/17/19 09:00 JPK3067 (Rec: 06/17/19 11:53 FGV6480 MED-C09) Document 06/17/19 14:00 SIB7636 (Rec: 06/17/19 14:30 LOW3165 MED-C09) Document 06/17/19 18:00 UQB0072 (Rec: 06/17/19 22:50 CXX0400 MED-C02) Document 06/18/19 09:00 DTW2080 (Rec: 06/18/19 09:37 HLS2704 MED-C11) Document 06/18/19 14:00 UIQ6575 (Rec: 06/18/19 14:27 TTW1246 MED-C15) Document 06/18/19 18:00 IDC3132 (Rec: 06/18/19 18:36 JPQ2876 MED-C15) Intake and Output Start: 06/08/19 12: 40 Freq: Status: Active Protocol: Created 06/08/19 12:40 System (Rec: 06/08/19 12:40 System EDRM-C04) Intake and Output Start: 06/08/19 17: 12 Freq: Q1HR Status: Complete Protocol: Created 06/08/19 17:12 System (Rec: 06/08/19 17:12 System ICU-C15) Document 06/08/19 18:51 RNM1052 (Rec: 06/08/19 18:51 TOU8111 ICU-M29) Document 06/08/19 20:00 WMS0227 (Rec: 06/08/19 20:06 EBK3637 ICU-M33) Document 06/08/19 21:00 KAW7556 (Rec: 06/08/19 21:56 SBF7009 ICU-M33) Document 06/08/19 21:56 QGI4801 (Rec: 06/08/19 21:58 ASC6605 ICU-M33) Document 06/08/19 23:00 FVD0627 (Rec: 06/08/19 23:03 JOS7626 ICU-C15) Document 06/09/19 00:00 QDO5764 (Rec: 06/09/19 00:13 CPE5548 ICU-C15) Document 06/09/19 01:00 FUM4592 (Rec: 06/09/19 02:37 RZG3064 ICU-C15) Document 06/09/19 02:00 BZB2591 (Rec: 06/09/19 02:37 DMV6735 ICU-C15) Document 06/09/19 03:00 JQB3487 (Rec: 06/09/19 03:16 KUC4403 ICU-M33) Document 06/09/19 04:00 WQI9875 (Rec: 06/09/19 04:14 DDY6524 ICU-M33) Document 06/09/19 05:00 MKE2131 (Rec: 06/09/19 05:26 JJH4940 ICU-C15) Document 06/09/19 06:00 YSH0811 (Rec: 06/09/19 06:13 JWV0111 ICU-M33) Document 06/09/19 07:00 YAH6615 (Rec: 06/09/19 08:10 OKM8157 ICU-C15) Document 06/09/19 08:00 YDF0731 (Rec: 06/09/19 08:46 SDP4864 IMG-C14) Document 06/09/19 09:00 JNK1965 (Rec: 06/09/19 10:41 MHA5419 ICU-M33) Document 06/09/19 10:00 SZS2843 (Rec: 06/09/19 10:41 DRS5248 ICU-M33) Document 06/09/19 11:00 MFU0549 (Rec: 06/09/19 14:08 PXR3439 ICU-C15) Document 06/09/19 12:00 QPR1421 (Rec: 06/09/19 14:08 DHF2854 ICU-C15) Document 06/09/19 13:00 YUG8866 (Rec: 06/09/19 14:09 MRW1144 ICU-C15) Document 06/09/19 14:00 PBD5472 (Rec: 06/09/19 14:09 BRD2203 ICU-C15) Document 06/09/19 14:15 YCU3208 (Rec: 06/09/19 15:11 EPV5890 ICU-C15) Document 06/09/19 15:00 NEZ5634 (Rec: 06/09/19 16:04 OHA5001 ICU-C10) Document 06/09/19 16:00 COV8819 (Rec: 06/09/19 16:04 LZY2002 ICU-C10) Document 06/09/19 17:00 JPL8187 (Rec: 06/09/19 17:21 FOJ8399 ICU-C10) Document 06/09/19 18:00 OBI5774 (Rec: 06/09/19 18:11 KKQ2136 ICU-C10) Document 06/09/19 18:51 MJZ9955 (Rec: 06/09/19 18:51 ILL8955 ICU-M33) Document 06/09/19 20:00 NZN1337 (Rec: 06/09/19 21:05 TWQ9690 ICU-M33) Document 06/09/19 21:00 YFX0924 (Rec: 06/09/19 21:05 EIX9664 ICU-M33) Document 06/09/19 22:00 PUB5569 (Rec: 06/09/19 22:10 JAO8543 ICU-C16) Document 06/09/19 22:56 NFW2728 (Rec: 06/09/19 22:56 UBJ3101 ICU-C16) Document 06/10/19 00:00 EUL9924 (Rec: 06/10/19 00:25 PWR6947 ICU-M33) Document 06/10/19 01:00 XZH7632 (Rec: 06/10/19 01:11 IAM6340 ICU-C16) Document 06/10/19 02:00 KTI2129 (Rec: 06/10/19 02:05 ZRE6283 ICU-C16) Document 06/10/19 03:00 IJH7376 (Rec: 06/10/19 04:15 XFP8024 ICU-C12) Document 06/10/19 04:00 KNJ0158 (Rec: 06/10/19 04:15 ZFY6470 ICU-C12) Document 06/10/19 05:00 YZL7305 (Rec: 06/10/19 06:17 EPT7467 ICU-C16) Document 06/10/19 06:00 UBY7729 (Rec: 06/10/19 06:17 FMO9005 ICU-C16) Document 06/10/19 07:00 PKO0800 (Rec: 06/10/19 08:14 AYD5677 ICU-M33) Document 06/10/19 08:00 IYX5104 (Rec: 06/10/19 08:14 AFD7955 ICU-M33) Document 06/10/19 09:00 KMB2715 (Rec: 06/10/19 10:34 UHB5711 ICU-C25) Document 06/10/19 10:00 IQI4410 (Rec: 06/10/19 10:34 TFR8700 ICU-C25) Document 06/10/19 11:00 TEB7055 (Rec: 06/10/19 11:15 SHZ4864 ICU-C25) Document 06/10/19 11:58 BPS2439 (Rec: 06/10/19 11:58 IRA2408 ICU-C14) Document 06/10/19 13:00 VNK8582 (Rec: 06/10/19 13:02 GBE5951 ICU-C16) Document 06/10/19 14:00 ZNS7558 (Rec: 06/10/19 14:23 AHA3209 ICU-M31) Document 06/10/19 15:00 ONT8234 (Rec: 06/10/19 17:20 SCQ4772 ICU-M33) Document 06/10/19 15:00 MHQ9004 (Rec: 06/10/19 17:29 YHK8376 ICU-M33) Document 06/10/19 16:00 QUQ9850 (Rec: 06/10/19 17:20 XRD3771 ICU-M33) Document 06/10/19 17:00 WQD2675 (Rec: 06/10/19 17:20 ZSA1917 ICU-M33) Document 06/10/19 18:00 WAP1366 (Rec: 06/10/19 18:22 XPV1295 ICU-C25) Document 06/10/19 19:00 TGC8199 (Rec: 06/10/19 19:51 QOD4552 ICU-M33) Document 06/10/19 20:00 OXG2700 (Rec: 06/10/19 20:24 UQF4101 ICU-C15) Document 06/10/19 21:00 GGP7835 (Rec: 06/10/19 22:03 UQA6003 ICU-C15) Document 06/10/19 22:00 XOJ2618 (Rec: 06/10/19 22:15 RWJ9434 ICU-C15) Document 06/10/19 23:00 SOW5774 (Rec: 06/10/19 23:29 DOL3463 ICU-C15) Document 06/11/19 00:00 XJO3020 (Rec: 06/11/19 00:31 MYE0081 ICU-C15) Document 06/11/19 01:00 BEX4633 (Rec: 06/11/19 01:27 VAL4495 ICU-C15) Document 06/11/19 02:00 MJH7185 (Rec: 06/11/19 02:25 RNK3643 ICU-C15) Document 06/11/19 03:00 LZM0952 (Rec: 06/11/19 03:11 USB1309 ICU-C15) Document 06/11/19 04:00 UAZ7906 (Rec: 06/11/19 04:21 QTA6752 ICU-M33) Document 06/11/19 05:00 XHM9446 (Rec: 06/11/19 05:23 OTH1278 ICU-C15) Document 06/11/19 06:00 RSC6904 (Rec: 06/11/19 06:13 EIB3125 ICU-C15) Document 06/11/19 07:00 PBW0904 (Rec: 06/11/19 08:10 GJE0393 ICU-C25) Document 06/11/19 08:00 GWU6358 (Rec: 06/11/19 08:10 EBY1808 ICU-C25) Document 06/11/19 09:00 IXV9784 (Rec: 06/11/19 11:33 OFN8151 ICU-C25) Document 06/11/19 10:00 ACK1071 (Rec: 06/11/19 11:33 EZG8424 ICU-C25) Document 06/11/19 11:00 YNX5396 (Rec: 06/11/19 11:33 GSA0959 ICU-C25) Intake and Output Start: 06/11/19 11: 54 Freq: DAILY@0600,1400,2200 Status: Active Protocol: Created 06/11/19 11:54 WZO6098 (Rec: 06/11/19 11:54 WFY7150 ICU-C25) Document 06/11/19 22:00 JID9196 (Rec: 06/11/19 22:37 VOO6042 MED-C11) Document 06/12/19 06:00 VLI1464 (Rec: 06/12/19 06:31 HWB5869 MED-C11) Document 06/12/19 14:00 TUO7064 (Rec: 06/12/19 15:15 ZYR3504 MED-C02) Document 06/12/19 22:00 JQE3569 (Rec: 06/12/19 23:33 APS5693 MED-C11) Document 06/13/19 05:03 IKN0331 (Rec: 06/13/19 05:04 FGS7342 MED-C11) Document 06/13/19 06:00 SQC6943 (Rec: 06/13/19 06:13 RLI8094 MED-C11) Document 06/13/19 14:00 RDQ4181 (Rec: 06/13/19 14:12 RIL8153 MED-C02) Document 06/13/19 22:00 BEC0234 (Rec: 06/13/19 22:11 SEI4951 MED-C26) Document 06/14/19 05:01 YFY8693 (Rec: 06/14/19 05:02 QZZ1856 MED-C26) Document 06/14/19 14:00 JJN8397 (Rec: 06/14/19 14:47 QJZ4591 MED-C09) Document 06/14/19 22:00 POD2595 (Rec: 06/14/19 22:10 KUN3515 MED-C02) Document 06/15/19 06:00 XGR5193 (Rec: 06/15/19 06:17 QTF9751 MED-C02) Document 06/15/19 14:00 SKX8907 (Rec: 06/15/19 17:28 BFL4515 MED-C02) Document 06/15/19 18:53 WRG2098 (Rec: 06/15/19 18:53 HKS5842 MED-C02) Document 06/15/19 21:27 GSN4261 (Rec: 06/15/19 21:27 KJV7333 MED-C09) Document 06/16/19 05:02 FJG6935 (Rec: 06/16/19 05:03 VRW1437 MED-C09) Document 06/16/19 17:11 HLV1703 (Rec: 06/16/19 17:12 FVP0474 MED-C15) Document 06/16/19 21:10 BKT4470 (Rec: 06/16/19 21:11 PLM3773 MED-C09) Document 06/17/19 06:00 JBJ4093 (Rec: 06/17/19 06:01 LTB7329 MED-C09) Document 06/17/19 13:37 SYN2938 (Rec: 06/17/19 13:37 DNZ4607 MED-C11) Document 06/17/19 22:00 IDQ8269 (Rec: 06/17/19 22:56 LUS5382 MED-C02) Document 06/18/19 05:24 RTB7355 (Rec: 06/18/19 05:25 GQK6598 MED-C02) Document 06/18/19 13:08 ZPH9858 (Rec: 06/18/19 13:08 TBS4434 MED-C13) Document 06/18/19 14:00 FGL4173 (Rec: 06/18/19 14:27 FNH8408 MED-C15) Document 06/18/19 22:00 XAR8028 (Rec: 06/18/19 22:32 XRE7178 MED-C05) Document 06/19/19 06:00 ZSD8408 (Rec: 06/19/19 06:06 QWR8725 MED-C11) - Physical Exam General Physical Exam Comment: She is disoriented in place/time, but is conversational and wanting to understand her situation General: No Cyanosis, No Anemia, No Jaundice, No Clubbing Eye Exam: bilateral: EOMI - normal eye movements with no nystagmus Lungs and Chest: Yes: Chest Expansion Full, Chest Expansion Symetrica, Percussion Note Resonant, Vessicular Breath Sounds, Crackles - fewer. No: Wheezes, Respiratory Distress, Use of Accessory Muscles Heart Rate and Rhythm: Irregular Additional Cardiovascular: Yes: Normal Heart Sounds. No: Heart Murmur, Pedal Edema Abdominal Exam: Yes: Soft, Bowel Sounds Present. No: Distention, Abdominal Tenderness - Extremities Cranial Nerves II-XII Intact: Yes Limbs: Normal Power, Normal Tone - Neuro Orientation: Person Psychiatric: Anxious Speech: Normal Results - Results Lab Results: Laboratory Results - last 24 hr 06/18/19 06/19/19 06/19/19 15:45 06:22 06:22 INR (Anticoag Therapy) 2.53 H APTT 34.3 Sodium 141 Potassium 3.8 Chloride 103 Carbon Dioxide 27 Anion Gap 11 BUN 42 H Creatinine 1.13 H Est GFR ( Amer) 56.2 Est GFR (Non-Af Amer) 46.4 BUN/Creatinine Ratio 37.2 H Glucose 123 H Calcium 7.9 L Assessment - Problem List Assessment: Patient Problems Acute myocardial infarction (Acute) Acute renal failure (Acute) Altered mental state (Acute) CHF, acute (Acute) Ischemic hepatitis (Acute) Leukocytosis (Acute) Pleural effusion, bilateral (Acute) Pneumonia (Acute) Alcohol dependence (Chronic) Anticoagulated (Chronic) Atrial fibrillation (Chronic) 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) Essential (primary) hypertension (Chronic) Hemianopia (Chronic) Hemianopia, homonymous, right (Chronic) History of CVA (cerebrovascular accident) (Chronic) Osteoporosis (Chronic) Hypokalemia (Acute) COPD (chronic obstructive pulmonary disease) (Chronic) History of hypertension (Chronic) Multiple cerebral infarctions (Chronic) Plan: Acute myocardial infarction (Acute) She is hemodynamnically stable Acute renal failure (Acute) Improving CHF, acute (Acute) iimproving Ischemic hepatitis (Acute) improving Leukocytosis (Acute) ongoing - steroid related Pleural effusion, bilateral (Acute) this is minor Pneumonia (Acute) resolved - I will change her to oral cephalexin Alcohol dependence (Chronic) to stop drinking Anticoagulated (Chronic) INR on target Atrial fibrillation (Chronic) rate controlled 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 Mentally she is disoriented - this is multifactorial - prednisone, prolonged hospital stay. I think she will improve back at [facility]. I see no evidence of any acute new neuro-pathology. I spoke with the patient and with Kevin Patel and they agree with this plan.
[2019-06-19] MEDS: Spironolactone TAB* 25 MG PO SCH (08:06)
[2019-06-19] MEDS: Carvedilol TAB* 3.125 MG PO SCH (08:06)
[2019-06-19] MEDS: Cephalexin CAP* 500 MG PO SCH ×2 (08:06→12:58)
[2019-06-19] MEDS: Furosemide TAB* 20 MG PO SCH (08:06)
[2019-06-19] MEDS ORDERED: predniSONE TAB* 20 MG PO SCH (09:00)
[2019-06-19] MEDS ORDERED: predniSONE TAB* 10 MG PO SCH (09:00)
[2019-06-19] MEDS ORDERED: Digoxin TAB* 0.125 MG PO SCH (09:00)
--- NOTE | 2019-06-19 11:54 | DS ---
CC: Harpreetmargaret Mayda Flores [facility]; Dr. Ana Rosa Kirby; Dr. Reema Santana.* DISCHARGE SUMMARY: DATE OF ADMISSION: 06/08/19 DATE OF DISCHARGE: 06/19/19 DISPOSITION: Mayda Yee at [facility]. CONDITION AT DISCHARGE: Stable, alerted mental status. DISCHARGE DIAGNOSES: 1. Acute anterior myocardial infarction. 2. Acute cardiomyopathy. 3. Multisystem organ failure. 4. Ischemic hepatitis. 5. Acute renal insufficiency with acute tubular necrosis. COMORBIDITIES: 1. Lower respiratory tract infection. 2. Acute exacerbation of chronic obstructive pulmonary disease. 3. Acute congestive cardiac failure. SECONDARY DIAGNOSES: 1. History of alcoholism. 2. History of multiple cerebrovascular events. 3. Chronic anticoagulation. 4. Atrial fibrillation. 5. Essential hypertension. 6. Chronic right homonymous hemianopsia. 7. Hypertension. 8. Osteoporosis. HISTORY: Abeba Patel is a 79-year-old right-handed white female. Her presentation is documented in Dr. Luz Irby's admitting history and physical. She presented to the emergency room with 2 days of shortness of breath, weakness, and fever. She returned from [place] on 06/06/19. In the emergency room, her O2 saturations were in the low 80s. She had a white count of 22.3, INR of 3.31, creatinine 1.7, lactic acid 8.2, AST 4265, ALT 2904, troponin I 1.12, BNP greater than 1300. CT scan showed fatty infiltration of the liver. She was immediately admitted to the ICU. INITIAL ASSESSMENT AND PLAN: 1. Fevers, shortness of breath, acute liver injury, and acute kidney injury. Initial management was planned in the ICU. 2. Cardiovascular system. Cardiology consultation required. 3. Pulmonary. Arterial blood gas is pH 7.34, pCO2 of 26, pO2 of 155, bicarbonate 17.1, base excess -10, 100% oxygen on 15 L per minute. 4. GI: Liver ultrasound ordered. Initial amylase was 267, lipase 35. INVESTIGATION: Microbiology: Venous blood cultures negative. MRSA nasal screen negative. Urine culture negative. Serology: Negative CMV. Positive for EBV DNA by PCR 125. Range of assay is 100:1000 to 5 million international units/mL. Negative hepatitis ABC and HSV. She was VZV IgG antibody negative otherwise. Immunology: Antinuclear antibody 0.4, antismooth muscle antibody negative. Kid microsomal antibody less than 5. Toxicology: Digoxin level on 06/08/19 is 0.5, on 06/17/19 is 1.3. Acetaminophen level at presentation 19. Salicylate less than 2.5. GGTP at presentation 62. AST declined to 61 on penultimate day in the hospital. ALT declined to 314 on penultimate ultimate day in the hospital. Alkaline phosphatase declined to 160 on the penultimate day in the hospital. Creatinine went from a peak of 2.99 on 06/11/19 to 1.13 on the day of discharge. Troponin I peaked at 2.33 on 06/09/19. Ammonia at presentation 257 , next day 189. Albumin lowest level was on 06/11/19 at 2.5, on 06/18/19 it was 2.8. Procalcitonin at presentation 8.7, on 06/13/19 was 1.6. C-reactive protein at presentation 56, came down to 26.37 on 06/14/19. Peaked again at 06/16/19 at 80.13 and on the penultimate day in the hospital, 21.08. IMAGING: On 06/08/19, chest x-ray: Mild vascular congestion with cardiomegaly. On 06/08/19, venous Doppler study: No evidence of DVT. On 06/08/19, portal vein ultrasound: Normal duplex of the liver. On 06/09/19, V/Q scan of lung: Solitary unmatched subsegmental perfusion defect at the apical posterior segment of the left upper lobe, low probability for pulmonary embolism. On 06/13/19, a chest CAT scan: Cardiomegaly, interstitial edema, bilateral pleural effusions right lower lobe, bronchiectasis with soft tissue within the bronchus causing atelectasis, might represent a mucus plug. On 06/16/19, chest x-ray: Cardiomegaly, bilateral pleural effusions which was small. CARDIOVASCULAR INVESTIGATIONS AT PRESENTATION: 12 lead EKG: Atrial fibrillation, ST changes in the anterior leads, suggestion of anteroseptal myocardial infarction. On 06/09/19, deeper T-wave inversions in the anteroseptal leads, atrial fibrillation. On 06/08/19, transthoracic echocardiogram: Systolic function moderately reduced. Estimated ejection fraction 35% to 40%, global hypokinesia. Moderate dilation of right ventricle. Left atrium was severely dilated, right mildly dilated. Mild to moderate mitral regurgitation. Mild aortic valve regurgitation. Ascending aorta mildly dilated. CONSULTATIONS: All of which are part of the electronic medical record: Dr. Timothy Fong on 06/08/19, his impression: Atrial fibrillation, new cardiomyopathy. He did not feel this was an acute coronary syndrome, but he had difficulty completely excluding a recent anterior wall myocardial infarction. He suggested ruling out PE, held statin due to liver failure, continued aspirin and beta-jacqueline. On 06/10/19, Dr. David Simon for Gastroenterology; his impression: Grossly elevated LFTs, transaminitis, paucity of bilirubin and alkaline phosphatase elevation. He did not feel there was a toxic etiology, so he ruled out acute viral hepatitis. He felt that this was acute ischemic hepatitis. On 06/16/19, Dr. Belle Tijerina for Pulmonology; her impression: Hypoxemic respiratory failure; V/Q mismatch from fluid overload; acute on chronic COPD; wondered about mucus inspissation; agreed with piperacillin, tazobactam, and steroids; suggested O2 and a flutter valve. HOSPITAL COURSE: Abeba Patel was initially managed in the ICU and then transferred back to the regular floor. She had a slow but progressive improvement in her physical state, particularly liver failure and renal failure recovered steadily. Her recovery was complicated by her pulmonary status which in turn was subjected to acute congestive cardiac failure, acute exacerbation of COPD, and a lower respiratory tract infection. These all responded albeit slowly to IV antibiotics with Zosyn, IV diuretic therapy with furosemide, oral steroid treatment with prednisone. On the day of discharge, she is feeling well; however, her mental state is characterized by disorientation. Her mental state changed during the hospitalization anywhere between relatively well oriented to completely disoriented. On the day of discharge, she was unaware and unable to explain why she was in the hospital. She felt she was in [place] and was disoriented in time as well. However, she was insightful and knew that she was disoriented. Physically, she denied any pain. She had no dyspnea. Her appetite was good. She had no fevers or sweats. PHYSICAL EXAMINATION: On the day of transfer, vital signs: Temperature 98.2, heart rate 90, respirations 20, oxygen saturation 97% on room air, and blood pressure 142/76. She had no cyanosis, anemia, jaundice, clubbing, or lymphadenopathy. Cardiovascular System: Her pulse was irregularly irregular, atrial fibrillation, heart sounds were normal with a soft systolic murmur. No pedal edema. No carotid bruits. Respiratory System: Chest expansion was full and symmetrical. Percussion note was resonant. Breath sounds were vesicular, few crackles at the basis, a few scattered expiratory wheezes. She was not in respiratory distress. Abdominal Examination: No distention, massive tenderness , or organomegaly. Nervous System: She was alert, but not oriented aside from person. She had conjugate eye movements, chronic right homonymous hemianopia. Cranial nerves II through XII intact. Her speech, she has subtle expressive dysphagia. Arms and legs full power, normal tone, and coordination. INVESTIGATIONS ON THE DAY OF DISCHARGE: Sodium 141, potassium 3.8, chloride 103 , bicarbonate 27, BUN 11, calcium 7.9. CBC: White count 10.9, hemoglobin 10.9 , hematocrit 33, platelets 153. INR 2.53. ASSESSMENT AND PLAN: 1. Acute myocardial infarction. I think this was the underlying event that provoked the rest of her problems. I note that this may have happened several days prior to admission. I also note that she had a recent travel to [place] and that she had a slight increase in her EBV DNA on the PCR. I think the latter reveals an oversensitivity of a test driven pathology. She is now hemodynamically stable. She has some mild congestive cardiac failure. We are treating her at present with anticoagulation with warfarin. I have chosen not to give her aspirin simultaneously. She is on a beta-jacqueline. In view of her liver damage I am holding a statin at present. In view of her renal insufficiency I am holding an ROBERT inhibitor at present. She will need to follow up with Dr. Santana as an outpatient. 2. Respiratory failure. This was multifactorial during the hospitalization which included congestive cardiac failure, acute exacerbation of chronic obstructive pulmonary disease, and also a lower respiratory tract infection. These have all improved. 3. Acute liver failure. This is thought to be due to ischemic hepatitis and is recovering. I placed her on warfarin rather than her usual Xarelto, so that I could be more aware of her anticoagulation status in view of possible synthetic problems as she also has long-standing alcoholism and likely some degree of cirrhosis. 4. Acute renal insufficiency. She had acute tubular necrosis at admission. Her kidneys are recovering at this point and she is receiving some diuretic therapy to good effect. 5. Altered mental status. This is multifactorial. It is likely partly due to the steroid treatment. She is having longstanding hospitalization, disorientation of day and night. I do not think this is due to a stroke. I think this will improve when she is discharged. 6. History of alcohol dependence. I have strongly indicated to both her and her , she cannot drink alcohol after this acute injury to her liver. 7. Chronic atrial fibrillation and anticoagulation. Her rate is well controlled, her INR is on target. 8. Chronic obstructive pulmonary disease. This was exacerbated on tapering the steroid course rapidly. 9. Dysphagia and right homonymous hemianopsia. These are consequences of previous chronic cerebrovascular accidents likely due to her chronic atrial fibrillation. 10. Hypertension. This is treated. 11. Osteoporosis. We will start treating again once she has recovered. DISCHARGE MEDICATIONS: 1. Carvedilol 3.125 mg b.i.d. 2. Cephalexin 500 mg 4 times a day for 5 days. 3. Digoxin 0.125 mg daily. 4. Furosemide 20 mg q.a.m. 5. Levalbuterol 0.63 in a 3 mL nebulizer 4 times a day as needed for acute exacerbation of COPD. 6. Taper of prednisone 10 mg a day for 3 days, 5 mg a day for 3 days, and then stop. 7. Spironolactone 12.5 mg daily. 8. Warfarin 1 mg daily. SPECIAL CARES: She should have daily INR and adjustment of the warfarin. I recommend before the end of the week she has a BMP and a digoxin level. She will be followed at [facility] by either Dr. Ana Rosa Kirby or Dr. Gia Moran. [id number]/[facility] #: [id number] [facility] H[facility]PITALRozina
[2019-06-19 12:12] VITALS: BP 141/68
[2019-06-19] MEDS ORDERED: Warfarin TAB(*) 1 MG PO SCH (17:00)
== END 2019-06-19 15:25 | DRG 280 ==
LOC: ED 12:17 → ICU 16:52 → MED 06-11 13:26
PROVIDERS: ADMIT Internal Medicine Critical Care Medicine; ATTEND Internal Medicine
DX: I21.09 ST elevation (STEMI) myocardial infarction involving other coronary artery of anterior wall (principal); J96.01 Acute respiratory failure with hypoxia; K72.01 Acute and subacute hepatic failure with coma; I50.43 Acute on chronic combined systolic (congestive) and diastolic (congestive) heart failure; N17.0 Acute kidney failure with tubular necrosis; J18.9 Pneumonia, unspecified organism; E87.1 Hypo-osmolality and hyponatremia; E87.2 Acidosis; D68.4 Acquired coagulation factor deficiency; I42.9 Cardiomyopathy, unspecified; J44.0 Chronic obstructive pulmonary disease with (acute) lower respiratory infection; I25.10 Atherosclerotic heart disease of native coronary artery without angina pectoris; I11.0 Hypertensive heart disease with heart failure; H53.461 Homonymous bilateral field defects, right side; R34 Anuria and oliguria; E83.51 Hypocalcemia; E83.39 Other disorders of phosphorus metabolism; D69.6 Thrombocytopenia, unspecified; K75.9 Inflammatory liver disease, unspecified; E87.6 Hypokalemia; R32 Unspecified urinary incontinence; M81.0 Age-related osteoporosis without current pathological fracture; I48.2 Chronic atrial fibrillation; I08.3 Combined rheumatic disorders of mitral, aortic and tricuspid valves; R73.9 Hyperglycemia, unspecified; F10.20 Alcohol dependence, uncomplicated; G40.909 Epilepsy, unspecified, not intractable, without status epilepticus; I25.2 Old myocardial infarction; I69.991 Dysphagia following unspecified cerebrovascular disease; Z82.3 Family history of stroke; Z87.891 Personal history of nicotine dependence; I69.398 Other sequelae of cerebral infarction; Z79.01 Long term (current) use of anticoagulants
CPT/HCPCS: 36415; 71045; 71046; 71250; 74176; 78582; 80048; 80053; 80061; 80074; 80076; 80162; 80329; 81003; 81015; 82140; 82150; 82248; 82330; 82550; 82553; 82803; 82977; 83605; 83615; 83690; 83735; 83880; 84100; 84145; 84439; 84443; 84484; 85014; 85018; 85025; 85027; 85049; 85610; 85730; 86038; 86140; 86255; 86376; 86644; 86645; 86663; 86694; 86695; 86696; 86787; 87040; 87086; 87497; 87641; 87799; 93005; 93306; 93970; 93975; 94640; 99285; A9270-GY; A9540; A9558; G0480; G8978-GP-CL; G8979-GP-CI; J0132; J0360; J0610; J0696; J1644; J1940; J2270; J2405; J2543; J3480; J7060; J7512; P9047

== ENCOUNTER 2019-06-23 04:07 | Inpatient (IN) | payer MEDICARE, OTHER ==
[2019-06-23] MEDS ORDERED: nitroGLYCERIN DRIP* 25,000 MCG/250 ML BTL ONE (04:14)
--- NOTE | 2019-06-23 04:19 | ED ---
Shortness of Breath - HPI Summary HPI Summary: This patient is a 79 year old F presenting to [facility] by EMS a chief complaint of sudden SOB [employer]ER. Pt has a Hx of heart failure. Pt lives at a fci. EMS found pt very wet and put her on CPAP, and gave her NITRO which seemed to have caused some improvement. BP without CPAP 190/110, with CPAP 170/100. - History of Current Complaint Time Seen by Provider: 06/23/19 04:11 Hx Obtained From: Patient Onset/Duration: Sudden Onset, Lasting Minutes Timing: Constant Aggravating Factors: Other Alleviating Factors: Other - Nitroglycerin, CPAP - Allergy/Home Medications Allergies/Adverse Reactions: Allergies Allergy/AdvReac Type Severity Reaction Status Date / Time No Known Allergies Allergy Verified 06/23/19 04:24 Home Medications: Home Medications Cephalexin 500 mg PO QID 06/23/19 [History Confirmed 06/23/19] Warfarin TAB(*) [Coumadin TAB(*)] 0.5 mg PO DAILY@1700 06/23/19 [History Confirmed 06/23/19] PMH/Surg Hx/FS Hx/Imm Hx Endocrine/Hematology History: Reports: Hx Anticoagulant Therapy - xarelto Denies: Hx Diabetes, Hx Anemia Cardiovascular History: Reports: Hx Atrial Fibrillation, Hx Coronary Artery Disease, Hx Hypertension, Hx Peripheral Vascular Disease, Other Cardiovascular Problems/Disorders - NEW ONSET A-FIB Denies: Hx Angina, Hx Congestive Heart Failure, Hx Hypercholesterolemia, Hx Myocardial Infarction, Hx Pacemaker/ICD, Hx Valvular Heart Disease Respiratory History: Reports: Hx Chronic Obstructive Pulmonary Disease (COPD), Other Respiratory Problems/Disorders - PRIOR SMOKER. QUIT 1994 Denies: Hx Asthma, Hx Chronic Bronchitis, Hx Pneumonia, Hx Sleep Apnea GI History: Denies: Hx Jaundice History: Reports: Other Problems/Disorders - HX HEMATURIA Denies: Hx Renal Disease Musculoskeletal History: Reports: Hx Orthopedic Injury - LEFT HUMERUS FRACTURE, Hx Osteoporosis, Other Musculoskeletal History - OSTEOPOROSIS Denies: Hx Arthritis Sensory History: Reports: Other Sensory Impairments Denies: Hx Cataracts - removed bilateraly, Hx Contacts or Glasses, Hx Eye Injury, Hx Hearing Aid Opthamlomology History: Reports: Other Sensory Impairments Denies: Hx Cataracts - removed bilateraly, Hx Contacts or Glasses, Hx Eye Injury Neurological History: Reports: Hx CVA, Hx Seizures, Hx Transient Ischemic Attacks (TIA), Other Neuro Impairments/Disorders - Cerebral infarction Denies: Hx Developmental Delay, Hx Headaches, Hx Migraine, Hx Nerve Disease, Hx Spinal Cord Injury Psychiatric History: Reports: Hx Substance Abuse - alcohol Denies: Hx Anxiety, Hx Depression, Hx Panic Disorder - Surgical History Surgery Procedure, Year, and Place: GROWTH ON UTERUS REMOVED/ FIBROID 1972 Hx Anesthesia Reactions: No - Immunization History Date of Tetanus Vaccine: Up to date Date of Influenza Vaccine: fall 2014 - Family History Known Family History: Positive: Other - CVA - Social History Lives: [place] Alcohol Use: Daily Alcohol Amount: x2/day Hx Substance Use: No Substance Use Type: Reports: None Hx Tobacco Use: Yes Smoking Status (MU): Former Smoker Type: Cigarettes, Pipe Amount Used/How Often: 1/2 PPD - QUIT IN 1995 Length of Time of Smoking/Using Tobacco: 55 years Have You Smoked in the Last Year: No Review of Systems Negative: Fever Positive: Shortness Of Breath All Other Systems Reviewed And Are Negative: Yes Physical Exam - Summary Physical Exam Summary: Constitutional: Well-developed, Well-nourished, Alert. Distressed Skin: Warm, Dry HENT: Normocephalic; Atraumatic Eyes: Conjunctiva normal Neck: Musculoskeletal ROM normal neck. (-) JVD, (-) Stridor, (-) Tracheal deviation Cardio: Rhythm regular, rate normal, Heart sounds normal; Intact distal pulses; The pedal pulses are 2+ and symmetric. Radial pulses are 2+ and symmetric. Pulmonary/Chest wall:(+) Rales; Coarse lungs sounds, tachypnic; Irregular tachycardic; Acute pulmonary distress Abd: Soft, (-) tenderness, (-) Distension, (-) Guarding, (-) Rebound Musculoskeletal: No significant lower extremity edema Neuro: Alert, Oriented x3 Psych: Mood and affect Normal Triage Information Reviewed: Yes Vital Signs On Initial Exam: Initial Vital Signs Temp 98.3 F 06/23/19 04:11 Pulse 114 06/23/19 04:11 Resp 46 06/23/19 04:11 BP 181/122 06/23/19 04:11 Pulse Ox 96 06/23/19 04:11 Vital Signs Reviewed: Yes Diagnostics - Laboratory Result Diagrams: 07/08/19 06:10 07/13/19 10:19 Lab Statement: Any lab studies that have been ordered have been reviewed, and results considered in the medical decision making process. - Radiology CXR Radiology Interpretation Completed By: ED Physician Summary of Radiographic Findings: CXR reveals, pulmonary congestion, consistent with pulmonary edema. Questionable right lower lobe consolidation vs infiltrate. Pending official radiology report. - EKG 0441 EKG Rhythm: Atrial Fibrillation Summary of EKG Findings: An EKG at 0441 reveals atrial fibrillation 84 bpm, No STEMI. Severe motion artifact. Course/Dx - Course Course Of Treatment: This patient is a 79 year old F presenting to [facility] by EMS a chief complaint of sudden SOB [employer] DES[employer]ER. Pt has a Hx of heart failure. Pt lives at a [facility]ci. EMS found pt very wet and put her on CPAP, and gave her NITRO which seemed to have caused some improvement. BP without CPAP 190/110, with CPAP 170/100. Will put her on nitroglycerin drip,. Blood work obtained. An EKG at 0441 reveals atrial fibrillation 84 bpm, No STEMI. Severe motion artifact. CXR reveals, pulmonary congestion, consistent with pulmonary edema. We discussed patient care with Dr. Corea, and she accepted pt for admission. Patient will be admitted. The patient is agreeable with this plan. - Diagnoses Provider Diagnoses: CHF exacerbation, Acute pneumonia - Physician Notifications Discussed Care of Patient With: Tatiana Corea Time Discussed With Above Provider: 05:45 Instructed by Provider To: Other - Discussed pt case with Dr. Corea, who accepts pt for admission. - Critical Care Time Critical Care Time: 30-74 min - 60 mins Discharge - Sign-Out/Discharge Documenting (check all that apply): Patient Departure - Admit Patient Received Moderate/Deep Sedation with Procedure: No - Discharge Plan Condition: Fair Disposition: ADMITTED TO [facility] - Billing Disposition and Condition Condition: FAIR Disposition: Admitted to [facility] - Attestation Statements Document Initiated by Scribe: Yes Documenting Scribe: Leisa Spicer Provider For Whom Fernanda is Documenting (Include Credential): Dr. Kevin Rios MD Scribe Attestation: Leisa Ramirez scribed for Dr. Kevin Rios MD on 07/14/19 at 0635. Scribe Documentation Reviewed: Yes Provider Attestation: The documentation as recorded by the Leisa kelley accurately reflects the service I personally performed and the decisions made by me, Dr. Kevin Rios MD Status of Scribe Document: Viewed
[2019-06-23] MEDS ORDERED: Levalbuterol 1.25MG/0.5ML NEB ONE (04:33)
[2019-06-23] MEDS ORDERED: Levalbuterol 0.63MG/3ML NEB* UNIT OF USE INH ONE (04:34)
[2019-06-23] MEDS ORDERED: Furosemide IV* 10 MG/ML 2 ML VIAL (20 MG) IV ONE (04:35)
[2019-06-23] MEDS ORDERED: Furosemide IV* 10 MG/ML 2 ML VIAL (20 MG) ONE (04:36)
[2019-06-23 04:41] LABS: Hematocrit 36 % (35-47); Hemoglobin 11.5 g/dL (12.0-16.0); Mean Corpuscular HGB Conc 32 g/dL (31-36); Mean Corpuscular Hemoglobin 28 pg (27-31); Mean Corpuscular Volume 90 fL (80-97); Mean Platelet Volume 10.2 fL (7.4-10.4); Platelet Count 301 10^3/uL (150-450); Red Blood Count 4.03 10^6 /uL (3.70-4.87); Red Cell Distribution Width 21 % (10-15); White Blood Count 25.4 10^3/uL (3.5-10.8)
[2019-06-23] MEDS ORDERED: Levofloxacin 500 MG IVPREMIX(* 500 MG/100 ML BAG IVPB ONE ×3 (04:50→05:04)
[2019-06-23 04:52] LABS: Activated Partial Thrombo Time 36.7 seconds (26.0-38.0); INR 2.12 (0.82-1.09)
[2019-06-23 04:59] LABS: ABS Basophils 0.1 10^3/ul (0-0.2); ABS Eosinophils 0.6 10^3/ul (0-0.6); ABS Monocytes 1.4 10^3/ul (0-0.8); ABS Neutrophils 20.2 10^3/ul (1.5-7.7); Anion Gap 12 mmol/L (2-11); BUN/Creatinine Ratio 27.2 (8-20); Blood Urea Nitrogen 28 mg/dL (6-24); CO2 Carbon Dioxide 23 mmol/L (22-32); Calcium 8.6 mg/dL (8.6-10.3); Chloride 101 mmol/L (101-111); EGFR African American 62.5 (>60); EGFR Non-African American 51.7 (>60); Eosinophil % 2.3 %; Glucose 184 mg/dL (70-100); Lymphocyte % 11.8 %; Potassium 4.5 mmol/L (3.5-5.0); Sodium 136 mmol/L (135-145)
[2019-06-23] MEDS ORDERED: nitroGLYCERIN DRIP* 25,000 MCG/250 ML BTL IV SCH (05:00)
[2019-06-23 05:07] LABS: Troponin I 0.07 ng/mL (<0.04)
[2019-06-23] MEDS ORDERED: Midazolam* 1 MG/ML 5 ML VIAL (5 MG) IV SLOW PU ONE (05:52)
[2019-06-23 06:02] LABS: Magnesium 1.9 mg/dL (1.9-2.7)
[2019-06-23 06:03] LABS: Urine Appearance Cloudy; Urine Bilirubin Negative (Negative); Urine Blood Negative (Negative); Urine Color Yellow; Urine Glucose Negative (Negative); Urine Ketones Negative (Negative); Urine Nitrite Negative (Negative); Urine Protein Negative (Negative); Urine Specific Gravity 1.009 (1.010-1.030); Urine Urobilinogen Negative (Negative)
[2019-06-23] MEDS ORDERED: Levalbuterol 0.63MG/3ML NEB* UNIT OF USE INH PRN (06:06)
[2019-06-23] MEDS ORDERED: Cefepime 1 GM in Dextrose(*) 1 GM/50 ML BAG IV SCH ×2 (07:00→08:00)
[2019-06-23] MEDS ORDERED: Vancomycin(*) 1,000 MG in NS 0.9% 250 ML* 250 ML IVPB ONE (07:00)
[2019-06-23] MEDS ORDERED: Albuterol/Ipratropium NEB.SOL* Albuterol 2.5 MG/Ipratropium 0.5 MG 3 ML INH SCH (07:00)
[2019-06-23] MEDS ORDERED: Digoxin TAB* 0.125 MG PO SCH (07:00)
[2019-06-23] MEDS: methylPREDNISolone SOD 40 MG* 1 ML VIAL IV SCH ×3 (07:56→23:45)
[2019-06-23] MEDS: Famotidine IV* 10 MG/ML 2 ML (20 mg) IV SLOW PU SCH ×2 (08:45→20:16)
[2019-06-23] MEDS: Carvedilol TAB* 3.125 MG PO SCH ×2 (08:45→20:20)
[2019-06-23] MEDS: lamoTRIgine TAB(*) 100 MG PO SCH ×2 (08:45→20:20)
[2019-06-23] MEDS: levETIRAcetam TAB* 500 MG PO SCH ×2 (08:45→20:18)
[2019-06-23 09:01] LABS: ALT 107 U/L (7-52); AST 34 U/L (13-39); Albumin 2.4 g/dL (3.2-5.2); Albumin/Globulin Ratio 0.9 (1-3); Alkaline Phosphatase 99 U/L (34-104); Globulin 2.6 g/dL (2-4); Indirect Bilirubin 1.1 mg/dL (0.3-1.0)
[2019-06-23 09:05] LABS: Troponin I 0.08 ng/mL (<0.04)
--- NOTE | 2019-06-23 09:24 | HP ---
CC: Dr. Biswas * HISTORY AND PHYSICAL: DATE OF ADMISSION: 06/23/19 PRIMARY CARE PROVIDER: Dr. Biswas. CHIEF COMPLAINT: Shortness of breath. HISTORY OF PRESENT ILLNESS: Abeba Patel is a 79-year-old female who had a prolonged hospital stay beginning 06/08/19 to 06/19/19 from which she was discharged to [facility] for rehabilitation. The patient has a history of chronic atrial fibrillation, on Coumadin; COPD; alcohol use as well as acute liver failure; and probable NH during her last hospital stay. She was brought in from [facility] today in acute respiratory distress. She required today placement of BiPAP. Her initial respiratory rate was in the 40s. She had rales and JVD noted by the ED physician. She was placed on BiPAP, but she got agitated when she was on BiPAP, and the ED provider treated the patient with 2 mg of IV Versed. Clinically, she is sedated and basically nonverbal, unable to give me any information. The remaining part of the history and physical is mostly taken from medical records. PAST MEDICAL HISTORY: 1. History of atrial fibrillation. 2. History of coronary artery disease. 3. History of congestive heart failure with most recent echo documented within the past 2 weeks, EF of 35% to 40%. 4. History of hypertension. 5. History of likely anterior NH during the past month. 6. History of mitral valve regurgitation. 7. History of dysphagia and right hemianopsia secondary to CVA. 8. History of seizure disorder. 9. History of COPD, unknown if the patient is using oxygen at home. PAST SURGICAL HISTORY: 1. History of uterine fibroid resection. 2. History of carpal tunnel releases. MEDICATIONS: At home included: 1. Keppra 750 mg b.i.d. 2. Digoxin 0.125 mg daily. 3. Coreg 3.125 mg b.i.d. 4. Lipitor 20 mg at bedtime. 5. Prednisone 5 mg daily. 6. Lamictal 100 mg daily. 7. Coumadin 0.5 mg daily. 8. Furosemide 20 mg daily. 9. Xopenex nebulizer on a p.r.n. basis. 10. Aldactone 12.5 mg daily. 11. Cephalexin, the patient received the last dose of this medication that was ordered post-hospital stay yesterday. ALLERGIES: No known drug allergies. FAMILY HISTORY: Unobtainable from this sedated patient. 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 She currently is in rehabilitation at [facility]. Her stayed at home. Per history, she has a significant alcohol use, but the patient is unable to give me any more information at this point. REVIEW OF SYSTEMS: Unobtainable from this sedated patient. Please note that in the emergency room, she received 20 mg of Lasix and started on nitroglycerin drip at approximately 100 to 150 mcg when her pressures initially on presentation went to 200 range. After my discussion with the ED provider, the blood pressure has normalized rapidly, and actually, the patient became hypotensive recently and her nitroglycerin drip was held. As mentioned above, the patient also received 2 mg of IV Versed when she was not tolerating the BiPAP as well as levofloxacin IV. PHYSICAL EXAMINATION GENERAL: The patient is a 79-year-old female who is now sedated, able to open eyes to command, but drifts off to sleep almost instantaneously. She is too sedated to be able to converse. VITAL SIGNS: Blood pressure of 92/69, heart rate of 99 and regular, respiratory rate 25, oxygen saturation 96% on 50% of FiO2 and BiPAP, temperature of 98.3. HEENT: Head atraumatic and normocephalic. Eyes: Pupils are equal and reactive to light and accommodation. Oropharynx clear. Mucosa moist. NECK: Supple. Positive for JVD bilaterally. RESPIRATORY: Rales bilateral lower to mid lung mitchell. CARDIOVASCULAR: Irregularly irregular rhythm. No murmur. ABDOMEN: Soft and nontender. Bowel sounds present in all 4 quadrants. EXTREMITIES: There is no edema. Pulses are +2 bilaterally. No clubbing or cyanosis. NEURO EVALUATION: The patient is very lethargic and sedated and difficult to evaluate. She moves all of her extremities spontaneously without any evidence of focal neuro deficit. DIAGNOSTIC STUDIES/LABORATORY DATA: Laboratory data showed a white blood cell count of 25.4, hemoglobin 11.5, hematocrit of 36, and platelets of 301. Her INR was 2.12. VBG showed pH of 7.4, pCO2 of 40, pO2 of 43, and bicarb of 24. Sodium was 136, potassium 4.5, chloride 101, carbon-dioxide 23, BUN 28, and creatinine 1.03. Liver function tests were not obtained yet. Magnesium was 1.9. Troponin of 0.07, brain natriuretic peptide was 859, and lactic acid of 4.9. The patient's EKG showed atrial fibrillation with a heart rate of 84 beats per minute; negatives T-waves in leads V2, V3; and mild ST depression in leads III and aVF. Comparing with an EKG from 06/09/19, the T inversion was more pronounced at that point in the anterior septal leads. The patient's portal chest x-ray reviewed by myself prior the official radiology report and showed vascular congestion. ASSESSMENT AND PLAN: 1. Acute respiratory failure. The patient is currently on BiPAP with which she is cooperating after a dose of Versed. She is going to be admitted to the intensive care unit. The etiology of her acute respiratory failure is likely flash pulmonary edema, although infection may also contribute. The patient has marked leukocytosis at 25,000, she was recently hospitalized. Unfortunately, due to her low systolic blood pressures after the nitroglycerine drip, I cannot diurese her any further. I will continue supporting her with BiPAP for the time being and the car seat upholsterer will take over after admission. 2. The patient's atrial fibrillation is chronic. We will continue digoxin and Coreg. It is rate controlled. 3. The patient has mild elevation of lactic acid likely due to hypoxemia and hypoperfusion from pulmonary edema. Nevertheless, we will repeat lactic acid later on during the day. 4. Leukocytosis, tachycardia, respiratory failure. Unfortunately, I cannot rule out an ongoing infection, especially hospital acquired infection. Although I do not see a clear-cut infiltrate on the patient's chest x-ray, she is going to be placed on cefepime and vancomycin for the time being. Blood cultures will be obtained. Due to her clinical picture consistent with congestive heart failure, she is not going to be provided with intravenous fluids. I do not believe the patient's elevated lactic acid is due to sepsis. It is likely due to hypoperfusion secondary to congestive heart failure. 5. For the patient's history of seizures, the patient is going to be continued on Keppra. 6. The patient's code status is full. Her surrogate is her . Unfortunately, I was unable to contact him via phone. It is possible that he is en route to the hospital now. 7. For DVT prophylaxis, the patient is on Coumadin with therapeutic INR above 2 which is going to be continued. 8. The patient had a history of ischemic hepatitis within the past couple of weeks and liver function tests are going to be obtained to follow. TIME SPENT: Approximately 62 minutes was spent on the admission of this patient , more than half that time was spent [id number] with the patient during the evaluation in the emergency department. [id number]/[facility] #: [id number] MTDD
[2019-06-23] MEDS ORDERED: Albuterol/Ipratropium NEB.SOL* Albuterol 2.5 MG/Ipratropium 0.5 MG 3 ML INH PRN (11:55)
[2019-06-23 14:16] LABS: Troponin I 0.06 ng/mL (<0.04)
--- NOTE | 2019-06-23 15:07 | PN ---
Date of Service: 06/23/19 Critical Care Services: Patient has done well since admission - is off BIPAP and on nasal O2 at 2 L/min. Vital Signs: Temp Pulse Resp BP SpO2 FiO2 97.6 F 84 20 104/67 97 45 Physical Exam: Gen:Alert, oriented, comfortable Lungs: Few crackles both bases Cardiac: Irreg rhythm Extremities:Warm. No cyanosis or edema Fluid Balance (Past 24 Hours): 06/23/19 06/24/19 06:59 06:59 Intake Total 100 260 Output 600 Balance 100 -340 Weight 120 lb 127 lb 6.835 oz Intake: IV Fluids 100 260 NS (0.9%) 10 Labs: 06/23/19 06/23/19 06/23/19 04:25 04:25 04:25 WBC 25.4 Hgb 11.5 Hct 36 MCV 90 MCH 28 MCHC 32 RDW 21 H Plt Count 301 MPV 10.2 Neut % (Auto) 79.7 Lymph % (Auto) 11.8 Dodge % (Auto) 5.6 Eos % (Auto) 2.3 Baso % (Auto) 0.6 Absolute Neuts (auto) 20.2 H Absolute Lymphs (auto) 3.0 Absolute Monos (auto) 1.4 H Absolute Eos (auto) 0.6 Absolute Basos (auto) 0.1 Absolute Nucleated RBC 0.0 Nucleated RBC % 0.0 Sodium 136 Potassium 4.5 Chloride 101 Carbon Dioxide 23 Anion Gap 12 H BUN 28 H Creatinine 1.03 H Glucose 184 H Lactic Acid 4.9 Calcium 8.6 Magnesium 1.9 Total Bilirubin Direct Bilirubin Indirect Bilirubin AST ALT Alkaline Phosphatase Troponin I 0.07 H* B-Natriuretic Peptide Total Protein Albumin Globulin Albumin/Globulin Ratio Urine Color Urine Appearance Urine pH Ur Specific [place] Urine Protein Urine Ketones Urine Blood Urine Nitrate Urine Bilirubin Urine Urobilinogen Ur Leukocyte Esterase Urine Glucose 06/23/19 06/23/19 06/23/19 04:25 04:25 05:03 WBC RBC Hgb Hct MCV MCH MCHC RDW Plt Count MPV Neut % (Auto) Lymph % (Auto) Dodge % (Auto) Eos % (Auto) Baso % (Auto) Absolute Neuts (auto) Absolute Lymphs (auto) Absolute Monos (auto) Absolute Eos (auto) Absolute Basos (auto) Absolute Nucleated RBC Nucleated RBC % INR (Anticoag Therapy) 2.12 H APTT 36.7 Patient Temperature ABG pH ABG pH (Temp Correct) ABG pCO2 ABG pCO2 (Temp Corrct ABG pO2 ABG pO2 (Temp Correct ABG HCO3 ABG O2 Saturation ABG Base Excess VBG pH 7.40 VBG pCO2 40 L VBG pO2 43.0 VBG HCO3 24.2 VBG O2 Saturation 71.9 VBG Base Excess 0.0 Respiration Rate Ventilator Type Vent Mode FiO2 Inspiratory Time PEEP Pressure Support Pressure Control EPAP IPAP BiPAP Sodium Potassium Chloride Carbon Dioxide Anion Gap BUN Creatinine Est GFR ( Amer) Est GFR (Non-Af Amer) BUN/Creatinine Ratio Glucose Lactic Acid Calcium Magnesium Total Bilirubin Direct Bilirubin Indirect Bilirubin AST ALT Alkaline Phosphatase Troponin I B-Natriuretic Peptide 859 H Total Protein Albumin Globulin Albumin/Globulin Ratio Urine Color Urine Appearance Urine pH Ur Specific [place] Urine Protein Urine Ketones Urine Blood Urine Nitrate Urine Bilirubin Urine Urobilinogen Ur Leukocyte Esterase Urine Glucose 06/23/19 06/23/19 06/23/19 05:29 06:15 08:32 WBC RBC Hgb Hct MCV MCH MCHC RDW Plt Count MPV Neut % (Auto) Lymph % (Auto) Dodge % (Auto) Eos % (Auto) Baso % (Auto) Absolute Neuts (auto) Absolute Lymphs (auto) Absolute Monos (auto) Absolute Eos (auto) Absolute Basos (auto) Absolute Nucleated RBC Nucleated RBC % INR (Anticoag Therapy) APTT ABG pH 7.48 H ABG pCO2 35 ABG pO2 146 H ABG HCO3 27.1 ABG O2 Saturation 99.8 H VBG pH VBG pCO2 VBG pO2 VBG HCO3 VBG O2 Saturation VBG Base Excess Respiration Rate Not Reportable Ventilator Type Not Reportable Vent Mode Not Reportable FiO2 45 Inspiratory Time Not Reportable PEEP Not Reportable Pressure Support Not Reportable Pressure Control Not Reportable EPAP 8 IPAP 12 BiPAP Not Reportable Sodium Potassium Chloride Carbon Dioxide Anion Gap BUN Creatinine Est GFR ( Amer) Est GFR (Non-Af Amer) BUN/Creatinine Ratio Glucose Lactic Acid Calcium Magnesium Total Bilirubin 1.70 H Direct Bilirubin 0.60 H Indirect Bilirubin 1.1 H AST 34 ALT 107 H Alkaline Phosphatase 99 Troponin I 0.08 H* B-Natriuretic Peptide Total Protein 5.0 L Albumin 2.4 L Globulin 2.6 Albumin/Globulin Ratio 0.9 L Urine Color Yellow Urine Appearance Cloudy Urine pH 6.0 Ur Specific [place] 1.009 L Urine Protein Negative Urine Ketones Negative Urine Blood Negative Urine Nitrate Negative Urine Bilirubin Negative Urine Urobilinogen Negative Ur Leukocyte Esterase Negative Urine Glucose Negative 06/23/19 06/23/19 06/23/19 08:32 08:45 13:47 WBC RBC Hgb Hct MCV MCH MCHC RDW Plt Count MPV Neut % (Auto) Lymph % (Auto) Dodge % (Auto) Eos % (Auto) Baso % (Auto) Absolute Neuts (auto) Absolute Lymphs (auto) Absolute Monos (auto) Absolute Eos (auto) Absolute Basos (auto) Absolute Nucleated RBC Nucleated RBC % INR (Anticoag Therapy) APTT ABG pH 7.49 H ABG pCO2 36 ABG pO2 136 H ABG HCO3 28.1 ABG O2 Saturation 99.8 H VBG pH VBG pCO2 VBG pO2 VBG HCO3 VBG O2 Saturation VBG Base Excess Respiration Rate Ventilator Type Vent Mode FiO2 Inspiratory Time PEEP Pressure Support Pressure Control BiPAP yes Sodium Potassium Chloride Carbon Dioxide Anion Gap BUN Creatinine Est GFR ( Amer) Est GFR (Non-Af Amer) BUN/Creatinine Ratio Glucose Lactic Acid 2.4 Calcium Magnesium Total Bilirubin Direct Bilirubin Indirect Bilirubin AST ALT Alkaline Phosphatase Troponin I 0.06 H* B-Natriuretic Peptide Total Protein Albumin Globulin Albumin/Globulin Ratio Urine Color Urine Appearance Urine pH Ur Specific [place] Urine Protein Urine Ketones Urine Blood Urine Nitrate Urine Bilirubin Urine Urobilinogen Ur Leukocyte Esterase Urine Glucose Studies: CXR: Prominent vascular markings consistent with venous congestion. ECHO: Results pending. Nutrition: Heart healthy diet Impression: 1. CHF - no evidence of acute coronary syndrome - Has improved after diuresis. 2. Possible urosepsis (cloudy urine and leukocytosis) Plan: 1. Continue diuresis and rate control for AFib. 2. Antiobiotics for suspected urosepsis, pending culture results. Critical Care Time: 45 minutes
[2019-06-23] MEDS: Digoxin TAB* 0.125 MG PO SCH (16:37)
[2019-06-23] MEDS: Warfarin TAB(*) 1 MG PO SCH (16:37)
[2019-06-23] MEDS: Vancomycin(*) 1,000 MG in NS 0.9% 250 ML* 250 ML IVPB SCH (18:35)
[2019-06-23] MEDS: Cefepime 1 GM in Dextrose(*) 1 GM/50 ML BAG IV SCH (20:12)
[2019-06-23] MEDS: Atorvastatin* 20 MG TAB PO SCH (20:20)
[2019-06-24] MEDS: Vancomycin(*) 1,000 MG in NS 0.9% 250 ML* 250 ML IVPB SCH (05:32)
[2019-06-24] MEDS: Famotidine IV* 10 MG/ML 2 ML (20 mg) IV SLOW PU SCH ×2 (09:34→21:11)
[2019-06-24] MEDS: methylPREDNISolone SOD 40 MG* 1 ML VIAL IV SCH ×2 (09:34→15:50)
[2019-06-24] MEDS: levETIRAcetam TAB* 500 MG PO SCH ×2 (09:35→21:10)
[2019-06-24] MEDS: Carvedilol TAB* 3.125 MG PO SCH ×2 (09:35→21:11)
[2019-06-24] MEDS: lamoTRIgine TAB(*) 100 MG PO SCH ×2 (09:35→21:11)
[2019-06-24] MEDS: Cefepime 1 GM in Dextrose(*) 1 GM/50 ML BAG IV SCH (09:58)
--- NOTE | 2019-06-24 10:07 | ECHO ---
*[facility]* [place] [address] Fax #: [phone] Transthoracic Echocardiogram Patient: Abeba Patel : 1940 Study Date: 06/23/2019 Age: 79 Gender: F HR: 75 bpm Height: 62 in /157.5 cm BSA: 1.54 m^2 Weight: 119.8 lb /54.4 kg BMI: 21.9 kg/m^2 *Physician Assistant: Renata Stone [facility] *Referring Physician: * Tatiana Corea *Reading Physician: * Lit Robins MD Conclusions Summary: - Left ventricle: Wall thickness is mildly increased. Wall motion is normal; there are no regional wall motion abnormalities. - Left atrium: The atrium is moderately dilated. - Mitral valve: There is moderate regurgitation, originating from the central commissure, directed posteriorly. - Aortic valve: The findings are consistent with mild stenosis. There is mild regurgitation. - Tricuspid valve: There is mild regurgitation. - Pulmonary arteries: Systolic pressure is moderately increased, at least 50 mm Hg. Study data: Transthoracic echocardiogram. Procedure: Transthoracic echocardiography was performed. Complete 2D, spectral Doppler, and color flow Doppler. Location: Procedure room. No prior study is available for comparison. Findings Left ventricle: Wall thickness is mildly increased. Systolic function is normal. The estimated ejection fraction is 60-65%. Wall motion is normal; there are no regional wall motion abnormalities. Left ventricular diastolic function parameters are indeterminate. Right ventricle: The cavity size is normal. Wall thickness is normal. Systolic function is normal. Left atrium: The atrium is moderately dilated. Right atrium: The atrium is moderately dilated. Mitral valve: MAC: mildly calcified. There is moderate regurgitation, originating from the central commissure, directed posteriorly. Aortic valve: The leaflets are mildly thickened. Valve mobility is restricted. The findings are consistent with mild stenosis. There is mild regurgitation. Tricuspid valve: The leaflets are normal thickness. There is no evidence of stenosis. There is mild regurgitation. Pulmonic valve: The valve is structurally normal. There is trace regurgitation. Pulmonary arteries: Systolic pressure is moderately increased, at least 50 mm Hg. Systemic veins: Inferior vena cava: The vessel is dilated. There is (< 50%) respiratory change in the IVC dimension. Measurements Left ventricle Value Ref Right atrium Value Ref ASHOK, LAX 3.8 cm 3.8 - SI dim, ES (H) 6.0 cm 3.4 - 5.2 5.3 ESD, LAX 2.6 cm 2.2 - ML dim, ES, A4C (H) 4.6 cm 2.6 - 3.5 4.4 FS, LAX 33 % 27 - 45 SI dim, ES, A4C (H) 6.0 cm 3.4 - PW, ED, LAX (H) 1.1 cm 0.6 - 5.3 0.9 SI dim/bsa, ES, (H) 3.9 cm/m^2 1.9 - FS 33 % 27 - 45 A4C 3.1 Mid-wall FS 13 % -------- PW, ED (H) 1.1 cm 0.6 - Aortic valve Value Ref 0.9 Peak v, S 1.3 m/sec -------- PW/ID, ED 0.28 -------- VTI, S 32.2 cm -------- E', lat faye, TDI (L) 9.4 cm/sec >=10.0 Mean grad, S 5.0 mm Hg -------- E/e', lat faye, TDI 9 -------- Peak grad, S 7.0 mm Hg --- ----- E', med faye, TDI 7.8 cm/sec >=7.0 JAYDEN, VTI 1.17 cm^2 -------- E/e', med faye, TDI 11 -------- JAYDEN, Vmax 1.51 cm^2 --- ----- E', avg, TDI 8.6 cm/sec -------- AR peak v 4.03 m/sec --- ----- E/e', avg, TDI 10 <=14 AR PHT 610 ms -------- AR peak grad 65 mm Hg -------- LVOT Value Ref Diam, S 1.60 cm -------- Mitral valve Value Ref Area 2.0 cm^2 -------- Peak E 0.86 m/sec -------- Peak harjinder, S 0.98 m/sec -------- Decel time 167 ms -------- Mean grad, S 2 mm Hg -------- Peak grad, D 2.9 mm Hg -------- SV 34 ml -------- SV/bsa 22 ml/m^2 -------- Pulmonic valve Value Ref Peak v, S 0.78 m/sec -------- Ventricular septum Value Ref Peak grad, S 2.0 mm Hg -------- IVS, ED (H) 1.0 cm 0.6 - 0.9 Tricuspid valve Value Ref TR peak v (H) 4 m/sec <=2.8 Right ventricle Value Ref Peak RV-RA grad, 64 mm Hg -------- AW thickness, ED 0.4 cm 0.1 - S 0.5 Max TR harjinder 3 m/sec -------- ASHOK, LAX 3.0 cm -------- ASHOK minor ax, A4C 3.2 cm 1.9 - Aortic root Value Ref mid 3.5 Root diam 3.2 cm <3.8 Left atrium Value Ref Inferior vena cava Value Ref ML dim, A4C 4.4 cm -------- Diam 2.4 cm -------- SI dim, A4C 6.0 cm -------- Vol/bsa, ES, 1-p (H) 47 ml/m^2 11 - 40 A4C Vol/bsa, ES, A/L (H) 49 ml/m^2 16 - 34 Legend: (L) and (H) henry values outside specified reference range. Prepared and electronically signed by Lit Robins MD 06/24/2019 10:07
[2019-06-24 10:57] LABS: ABS Lymphocytes 1.3 10^3/ul (1.0-4.8); ABS Monocytes 0.6 10^3/ul (0-0.8); ABS Neutrophils 10.8 10^3/ul (1.5-7.7); Hematocrit 31 % (35-47); Hemoglobin 9.9 g/dL (12.0-16.0); Lymphocyte % 10.2 %; Mean Corpuscular HGB Conc 33 g/dL (31-36); Mean Corpuscular Hemoglobin 29 pg (27-31); Mean Corpuscular Volume 88 fL (80-97); Mean Platelet Volume 10.2 fL (7.4-10.4); Platelet Count 229 10^3/uL (150-450); Red Blood Count 3.49 10^6 /uL (3.70-4.87); Red Cell Distribution Width 21 % (10-15); White Blood Count 12.7 10^3/uL (3.5-10.8)
[2019-06-24 11:13] LABS: BUN/Creatinine Ratio 32.6 (8-20); Calcium 8.8 mg/dL (8.6-10.3); EGFR Non-African American 61.2 (>60); Potassium 3.8 mmol/L (3.5-5.0)
[2019-06-24 15:44] LABS: Digoxin 1.1 ng/ml (0.8-2.0)
--- NOTE | 2019-06-24 15:46 | PN ---
Subjective Date of Service: 06/24/19 Interval History: Pt is agitated and not making any sense at this time. I am unable to get any history from her. She believes she is in the dirty laundry and needs to clean it. Objective Active Medications: Acetaminophen (Tylenol Tab*) 650 mg PO Q4H PRN PRN Reason: FEVER/PAIN Atorvastatin Calcium (Lipitor*) 20 mg PO BEDTIME [facility] Last Admin: 06/23/19 20:20 Dose: 20 mg Carvedilol (Coreg Tab*) 3.125 mg PO BID [facility] Last Admin: 06/24/19 09:35 Dose: 3.125 mg Digoxin (Lanoxin Tab*) 0.125 mg PO 1700 [facility] Last Admin: 06/23/19 16:37 Dose: 0.125 mg Famotidine (Pepcid Iv*) 20 mg IV SLOW PU BID [facility] Last Admin: 06/24/19 09:34 Dose: 20 mg Lamotrigine (Lamictal Tab(*)) 100 mg PO BID [facility] Last Admin: 06/24/19 09:35 Dose: 100 mg Levalbuterol HCl (Xopenex 0.63mg/3ml Neb*) 0.31 mg INH Q6H PRN PRN Reason: SOB/WHEEZING Levetiracetam (Keppra Tab*) 750 mg PO BID [facility] Last Admin: 06/24/19 09:35 Dose: 750 mg Methylprednisolone Sodium Succinate (Solu-Medrol 40 Mg) 40 mg IV Q8H [facility] Last Admin: 06/24/19 09:34 Dose: 40 mg Pharmacy Profile Note (Vancomycin Trough Check) 1 note FOLLOW UP 0600 ONE Stop: 06/25/19 06:01 Warfarin Sodium (Coumadin Tab(*)) 0.5 mg PO DAILY@1700 [facility]; Protocol Last Admin: 06/23/19 16:37 Dose: 0.5 mg Vital Signs - 8 hr 06/24/19 06/24/19 08:00 12:00 Temperature 98.4 F 97.9 F Pulse Rate 99 71 Respiratory 18 22 Rate Blood Pressure 153/99 125/68 (mmHg) O2 Sat by Pulse 94 94 Oximetry Oxygen Devices in Use Now: None Appearance: Elderly female lying in bed, agitated but in NAD Eyes: No Scleral Icterus Ears/Nose/Mouth/Throat: Mucous Membranes Moist Respiratory: Symmetrical Chest Expansion and Respiratory Effort, Clear to Auscultation Cardiovascular: NL Sounds; No Murmurs; No JVD, RRR, No Edema Abdominal: NL Sounds; No Tenderness; No Distention Extremities: No Clubbing, Cyanosis Skin: No Nodules or Sclerosis Neurological: - - confused, agitated Result Diagrams: 06/24/19 10:33 06/24/19 10:33 Microbiology and Other Data: Microbiology 06/23/19 08:32 Aerobic Blood Culture - Preliminary Blood Venous No Growth Day 1 Anaerobic Blood Culture - Preliminary No Growth Day 1 06/23/19 09:51 Nasal Screen MRSA (PCR) - Final Nasal Mrsa Not Detected Assess/Plan/Problems-Billing Ms Patel is a 79 yo F who has a h/o past CVA with subsequent seizure disorder, afib, CAD, HTN, COPD who was hospitalized earlier this month for acute liver failure (resolved) and acute MO who presented to the ER on 06/23/19 with c/o SOB and was admitted for acute hypoxic respiratory failure secondary to possible flash pulmonary edema. - Patient Problems (1) Altered mental state Current Visit: Yes Status: Acute Code(s): R41.82 - ALTERED MENTAL STATUS, UNSPECIFIED SNOMED Code(s): 758058541 Comment: Unclear what the patient's baseline mental status is, but per the patient's nurse I am under the impression that the patient's was shocked at how confused she was today. No evidence of UTI. There is NO "urosepsis" as previously indicated. ? related to dose of levaquin given yesterday vs high dose steroids vs seizures (?non convulsive status-seems unlikely but will discuss with neuro). (2) Acute respiratory failure with hypoxia Current Visit: Yes Status: Inactive Onset Date: 08/27/15 Code(s): J96.01 - ACUTE RESPIRATORY FAILURE WITH HYPOXIA SNOMED Code(s): 94395325 Comment: Resolved. Now on RA. [place] to be secondary to acute pulmonary edema. (3) CHF, acute Current Visit: Yes Status: Acute Code(s): I50.9 - HEART FAILURE, UNSPECIFIED SNOMED Code(s): 63481222 Comment: Pt was felt to have acute diastolic CHF/flash pulmonary edema on presenation. She required BiPAP for acute hypoxic resp failure. This is now resolved. She is now on RA. Resume lasix and spironolactone. (4) Seizure disorder Current Visit: Yes Status: Acute Code(s): G40.909 - EPILEPSY, UNSP, NOT INTRACTABLE, WITHOUT STATUS EPILEPTICUS SNOMED Code(s): 559680555 Comment: Pt with h/o seizure disorder following past CVAs. Continue keppra and lamotrigine. (5) Alcohol dependence Current Visit: Yes Status: Chronic Priority: Low Code(s): F10.20 - ALCOHOL DEPENDENCE, UNCOMPLICATED SNOMED Code(s): 48789714 Comment: As pt is unable to tell me anything useful it is unclear if she is still drinking. She does not appear to be withdrawling from EtOH. (6) Atrial fibrillation Current Visit: Yes Status: Chronic Code(s): I48.91 - UNSPECIFIED ATRIAL FIBRILLATION SNOMED Code(s): 06514154 Comment: Pt is in afib but controlled rate. Continue coreg and coumadin. Recheck INR tomorrow. (7) HTN (hypertension) Current Visit: Yes Status: Acute Code(s): I10 - ESSENTIAL (PRIMARY) HYPERTENSION SNOMED Code(s): 16388018 Comment: BP is under good control on coreg 3.125mg BID. (8) COPD (chronic obstructive pulmonary disease) Current Visit: Yes Status: Chronic Code(s): J44.9 - CHRONIC OBSTRUCTIVE PULMONARY DISEASE, UNSPECIFIED SNOMED Code(s): 59858353 Comment: No signs of exacerbation. Stop solumedrol. Monitor respiratory status. (9) DVT prophylaxis Current Visit: Yes Status: Acute Code(s): Z29.9 - ENCOUNTER FOR PROPHYLACTIC MEASURES, UNSPECIFIED SNOMED Code(s): 050705311 Comment: therapeutic INR (10) Patient is full code Current Visit: Yes Status: Inactive Onset Date: 08/27/15 Code(s): Z78.9 - OTHER SPECIFIED HEALTH STATUS SNOMED Code(s): 481926968
[2019-06-24] MEDS: Digoxin TAB* 0.125 MG PO SCH (16:40)
[2019-06-24] MEDS: Warfarin TAB(*) 1 MG PO SCH (16:41)
[2019-06-24] MEDS ORDERED: QUEtiapine TAB* 25 MG PO ONE (18:00)
[2019-06-24] MEDS: Atorvastatin* 20 MG TAB PO SCH (21:11)
[2019-06-25] MEDS ORDERED: Vancomycin Trough Check NOTE FOLLOW UP ONE (06:00)
[2019-06-25] MEDS ORDERED: Haloperidol INJ IV/IM* 5 MG/ML AMP IV SLOW PU ONE (07:25)
--- NOTE | 2019-06-25 07:52 | PN ---
Subjective Date of Service: 06/25/19 Interval History: Abeba is markedly agitated and only screams "get out of here, you fool, you will be arrested" over and over. She refuses to answer any of my questions. Objective Active Medications: Acetaminophen (Tylenol Tab*) 650 mg PO Q4H PRN PRN Reason: FEVER/PAIN Atorvastatin Calcium (Lipitor*) 20 mg PO BEDTIME [facility] Last Admin: 06/24/19 21:11 Dose: 20 mg Carvedilol (Coreg Tab*) 3.125 mg PO BID [facility] Last Admin: 06/24/19 21:11 Dose: 3.125 mg Digoxin (Lanoxin Tab*) 0.125 mg PO 1700 [facility] Last Admin: 06/24/19 16:40 Dose: 0.125 mg Famotidine (Pepcid Iv*) 20 mg IV SLOW PU BID [facility] Last Admin: 06/24/19 21:11 Dose: 20 mg Furosemide (Lasix Tab*) 20 mg PO 0800 [facility] Lamotrigine (Lamictal Tab(*)) 100 mg PO BID [facility] Last Admin: 06/24/19 21:11 Dose: 100 mg Levalbuterol HCl (Xopenex 0.63mg/3ml Neb*) 0.31 mg INH Q6H PRN PRN Reason: SOB/WHEEZING Levetiracetam (Keppra Tab*) 750 mg PO BID [facility] Last Admin: 06/24/19 21:10 Dose: 750 mg Spironolactone (Aldactone Tab*) 12.5 mg PO DAILY [facility] Warfarin Sodium (Coumadin Tab(*)) 0.5 mg PO DAILY@1700 [facility]; Protocol Last Admin: 06/24/19 16:41 Dose: 0.5 mg Vital Signs - 8 hr 06/25/19 03:28 Temperature 98.4 F Pulse Rate 69 Respiratory 16 Rate Blood Pressure 92/64 (mmHg) Oxygen Devices in Use Now: None Appearance: Elderly female sitting on the edge of the bed, screaming but in NAD Eyes: No Scleral Icterus Ears/Nose/Mouth/Throat: Mucous Membranes Moist Respiratory: Symmetrical Chest Expansion and Respiratory Effort, Clear to Auscultation Cardiovascular: NL Sounds; No Murmurs; No JVD, RRR, No Edema Abdominal: - - BS+ Extremities: No Clubbing, Cyanosis Skin: No Nodules or Sclerosis Neurological: - - confused and markedly agitated Result Diagrams: 06/24/19 10:33 06/24/19 10:33 Microbiology and Other Data: Microbiology 06/23/19 08:32 Aerobic Blood Culture - Preliminary Blood Venous No Growth Day 1 Anaerobic Blood Culture - Preliminary No Growth Day 1 06/23/19 09:51 Nasal Screen MRSA (PCR) - Final Nasal Mrsa Not Detected Assess/Plan/Problems-Billing Ms Patel is a 79 yo F who has a h/o past CVA with subsequent seizure disorder, afib, CAD, HTN, COPD who was hospitalized earlier this month for acute liver failure (resolved) and acute IA who presented to the ER on 06/23/19 with c/o SOB and was admitted for acute hypoxic respiratory failure secondary to possible flash pulmonary edema. - Patient Problems (1) Altered mental state Current Visit: Yes Status: Acute Code(s): R41.82 - ALTERED MENTAL STATUS, UNSPECIFIED SNOMED Code(s): 758558576 Comment: Pt is even more confused and agitated today compared to yesterday at my visit. Cause of her confusion is not clear. There is no evidence of infection. CT brain negative for any acute findings. ? hospital acquired delirium in the setting of a person who at baseline is mild to moderately confused (per [facility] staff) vs related to EtOH withdrawl (seems unlikely as pt has no other signs of withdrawl) vs non convulsive status (also unlikely given how verbal and active she has been). I trialed seroquel 25mg last night and reportedly she had an ok night. Given the screaming and marked agitation at this time will give haldol 2mg IV x1 now to see if she will settle and be more appropriate with her care. (2) Acute respiratory failure with hypoxia Current Visit: Yes Status: Inactive Onset Date: 08/27/15 Code(s): J96.01 - ACUTE RESPIRATORY FAILURE WITH HYPOXIA SNOMED Code(s): 23016044 Comment: Resolved. Now on RA. [place] to be secondary to acute pulmonary edema. (3) CHF, acute Current Visit: Yes Status: Acute Code(s): I50.9 - HEART FAILURE, UNSPECIFIED SNOMED Code(s): 01253302 Comment: Pt was felt to have acute diastolic CHF/flash pulmonary edema on presenation. She required BiPAP for acute hypoxic resp failure. This is now resolved. She is now on RA. Resume lasix and spironolactone- I doubt she will take her meds at this time. (4) Seizure disorder Current Visit: Yes Status: Acute Code(s): G40.909 - EPILEPSY, UNSP, NOT INTRACTABLE, WITHOUT STATUS EPILEPTICUS SNOMED Code(s): 208868497 Comment: Pt with h/o seizure disorder following past CVAs. Continue keppra and lamotrigine. Keppra level sent last night just prior to her receiving her evening dose. (5) Alcohol dependence Current Visit: Yes Status: Chronic Code(s): F10.20 - ALCOHOL DEPENDENCE, UNCOMPLICATED SNOMED Code(s): 32176443 Comment: As pt is unable to tell me anything useful, it is unclear if she is still drinking. She does not appear to be withdrawling from EtOH. (6) Atrial fibrillation Current Visit: Yes Status: Chronic Code(s): I48.91 - UNSPECIFIED ATRIAL FIBRILLATION SNOMED Code(s): 12444089 Comment: Pt is in afib but controlled rate. Continue coreg and digoxin and coumadin. Recheck INR tomorrow. Pt refused labs this AM. (7) HTN (hypertension) Current Visit: Yes Status: Acute Code(s): I10 - ESSENTIAL (PRIMARY) HYPERTENSION SNOMED Code(s): 37583842 Comment: BP is under good control on coreg 3.125mg BID. (8) COPD (chronic obstructive pulmonary disease) Current Visit: Yes Status: Chronic Code(s): J44.9 - CHRONIC OBSTRUCTIVE PULMONARY DISEASE, UNSPECIFIED SNOMED Code(s): 21506872 Comment: No signs of exacerbation. Stop solumedrol. Monitor respiratory status. (9) DVT prophylaxis Current Visit: Yes Status: Acute Code(s): Z29.9 - ENCOUNTER FOR PROPHYLACTIC MEASURES, UNSPECIFIED SNOMED Code(s): 748267934 Comment: therapeutic INR (10) Patient is full code Current Visit: Yes Status: Inactive Onset Date: 08/27/15 Code(s): Z78.9 - OTHER SPECIFIED HEALTH STATUS SNOMED Code(s): 041481406
[2019-06-25] MEDS ORDERED: Furosemide TAB* 20 MG PO SCH (08:00)
[2019-06-25 08:18] LABS: Hematocrit 30 % (35-47); Hemoglobin 9.8 g/dL (12.0-16.0); Mean Corpuscular HGB Conc 33 g/dL (31-36); Mean Corpuscular Hemoglobin 29 pg (27-31); Mean Corpuscular Volume 87 fL (80-97); Mean Platelet Volume 9.9 fL (7.4-10.4); Platelet Count 263 10^3/uL (150-450); Red Blood Count 3.41 10^6 /uL (3.70-4.87); Red Cell Distribution Width 21 % (10-15); White Blood Count 18.9 10^3/uL (3.5-10.8)
[2019-06-25 08:26] LABS: INR 2.88 (0.82-1.09)
[2019-06-25] MEDS: Famotidine IV* 10 MG/ML 2 ML (20 mg) IV SLOW PU SCH ×2 (08:28→21:13)
[2019-06-25 08:30] LABS: ABS Eosinophils 0.1 10^3/ul (0-0.6); ABS Lymphocytes 2.1 10^3/ul (1.0-4.8); ABS Monocytes 1.3 10^3/ul (0-0.8); ABS Neutrophils 15.4 10^3/ul (1.5-7.7); Eosinophil % 0.5 %; Lymphocyte % 11.2 %
[2019-06-25] MEDS: Spironolactone TAB* 25 MG PO SCH (08:30)
[2019-06-25] MEDS: levETIRAcetam TAB* 500 MG PO SCH ×2 (08:30→21:12)
[2019-06-25] MEDS: Carvedilol TAB* 3.125 MG PO SCH ×3 (08:30→21:12)
[2019-06-25] MEDS: lamoTRIgine TAB(*) 100 MG PO SCH ×2 (08:31→21:12)
[2019-06-25 08:35] LABS: EGFR African American 62.5 (>60); EGFR Non-African American 51.7 (>60)
[2019-06-25 12:45] LABS: TSH (Thyroid Stimulating Horm) 3.42 mcIU/mL (0.34-5.60)
--- NOTE | 2019-06-25 15:49 | CONS ---
NEUROLOGY CONSULTATION NOTE: DATE OF CONSULT: 06/25/19 CONSULTING PROVIDER: Dr. Pickard. REASON FOR CONSULT: Confusion. CHIEF COMPLAINT: Confusion. 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 She is on lamotrigine and levetiracetam. She sees Dr. Pandey in the outpatient clinic. [facility] was reviewed. She was last seen in clinic in April 2019. She was recently discharged from [facility] to [facility] for a prolonged hospitalization from 06/08/19 to 06/19/19 for possible IN. The patient presented to [facility] from [facility] on 06/23/19 for shortness of breath. She was thought to have possible pneumonia or pulmonary flash edema. She was started on 2 doses of cefepime. Eventually, she was transferred out of the ICU yesterday and into the medical floor. The patient had to utilize BiPAP for a few hours. In the ICU, she was reported to be alert and oriented to self and situation, but still had slight cognitive impairment. She was not agitated. After the BiPAP was removed, the patient was exhibiting some sundowning and agitation. She was reporting to just want to go back home. She was also requesting to contact her . Eventually, over the past 24 to 48 hours, the patient has been aggressive, agitated, hitting staff members, kicking sitters, and asking everyone to leave her alone. When I interviewed the patient today, she was extremely pleasant and calm, but she did receive Haldol early this morning. She also received Seroquel last night and slept fairly well. The patient today knows her name, but reports that she is in [place] and it is 1955. She also informed me that she is scared of dying and she also feels like dying, and when I reassured her that she is not ready to at least not today, she was extremely shocked and content. There has been no reported seizure activity. The patient denied any headaches or visual disturbance. The patient denied any new focal weakness. She has tremors of the upper extremities, R>L. PAST MEDICAL HISTORY: Atrial fibrillation, coronary artery disease, CHF, hypertension, anterior wall IN during the past hospitalization, mitral valve regurgitation, dysphagia and right hemianopsia secondary to stroke, seizure disorder secondary to stroke, COPD, alcohol use. PAST SURGICAL HISTORY: History of uterine fibroid resection, history of carpal tunnel release. HOME MEDICATIONS: 1. Digoxin 0.125 p.o. daily. 2. Levetiracetam 750 mg p.o. b.i.d. 3. Lamotrigine 100 mg p.o. b.i.d. 4. Atorvastatin 20 mg p.o. at bedtime. 5. Carvedilol 3.125 mg p.o. b.i.d. 6. Furosemide 20 mg p.o. 7. Levalbuterol inhaler. 8. Prednisone 5 mg daily. 9. Spironolactone 12.5 mg p.o. daily. 10. Cephalexin 500 mg p.o. 4 times daily. 11. Warfarin 0.5 mg p.o. daily. ALLERGIES: No known drug allergies. FAMILY HISTORY: No family history of stroke or seizures. 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 She currently is in rehabilitation at [facility]. She at baseline stays at home with her . She has a history of significant alcohol abuse, but no recent alcohol use was reported. REVIEW OF SYSTEMS: Unobtainable as the patient denied all review of systems. Most importantly, she denied any new visual disturbance or headaches. PHYSICAL EXAM: Temperature of 97.7, pulse of 76, respiratory rate of 24, oxygen saturation of 100%, blood pressure of 123/68. General: Ill-appearing, frail female, in no acute distress. Head: Atraumatic, normocephalic without any obvious abnormality. Neck: No nuchal rigidity. No carotid bruits. Eyes: Conjunctivae/corneas are clear. Respiratory: Clear to auscultation bilaterally with no rhonchi or wheezing. Cardiovascular: Irregular rate and rhythm, but no murmurs. Extremities: No hammertoes or high arches. Skin: No skin lesions or lacerations. Psych: Flat affect, broad mood. It is difficult to obtain rapport as the patient is demented and confused. Neurological Examination: Awake and alert to self, but not place or time. She thinks she is in [place]. She thinks it is 1955. She had similar confusion in [address] Irvin saw her. However, she does have significant delirious inappropriate word substitution and confusion. Moderate psychomotor slowing. She has tremors involving the head and bilateral upper extremities. Cranial Nerves: Pupils are equal, round, and reactive to light. Extraocular muscles are intact. Confrontation testing showed mild right inferior quadrantanopia. No facial asymmetry. Tongue is symmetrical and midline with no atrophy or fasciculation. Motor Examination: No cogwheel rigidity. Mild tremors on the left upper extremity on both resting and action. The tremors are slightly high rate with frequency of about 8 to 10. She is able to lift all 4 extremities symmetrically. Reflexes 2+ on the right and 1+ on the left biceps, brachioradialis, triceps, and knee bilaterally, 1+ on the right and 0 at the left ankle. Downgoing plantar response. Sensory is intact to light touch throughout. Coordination: Slight dysmetria on [id number] on the right, but normal on the left. Gait: Wide-based gait, required a walker. No shuffling. Slightly stooped posture. She is able to walk with minimal 1-person assist with a walker. LABS, IMAGING AND OTHER DIAGNOSTIC TESTING: WBC dropped from 25,000 to 12,000, but increased to 18,000. The patient has had leukocytosis in the past. Hemoglobin is 9.8, hematocrit of 30, platelet count of 263. INR is 2.8. ABG showed a pH of 7.49, pCO2 of 36, pO2 of 136. Sodium of 138, potassium 4.0, chloride of 105, BUN of 36, creatinine of 1.03, lactic acid of 2.1. Troponin 0.06. Urinalysis is negative for pyuria. I personally reviewed the CT of the head, which showed fluid collection in bilateral maxillary sinuses, possibly suggestive of paranasal sinusitis. There are chronic degeneration changes including encephalomalacia of the left occipital lobe, has not changed since most recent CT on 04/04/19. She had a transthoracic echo that showed no evidence of vegetation and normal EF with an enlarged left atrium. Microbiology: She had no growth on day 2 blood cultures. ASSESSMENT: 1. Mrs. 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 The patient was diagnosed with flash pulmonary edema. She was placed on BiPAP. She was also given 2 doses of cefepime for leukocytosis. The patient denied any headaches and has no nuchal rigidity examination to suspect meningitis. She does not have any lateralizing neurological symptoms to also suspect a stroke. Nonconvulsive status epilepticus is also less likely , although she is at increased risk given her history of seizures and the recent use of cefepime, but she was able to ambulate and walk with me today with some assistance. The likely diagnosis here is acute toxic-metabolic encephalopathy manifesting as hyperactive delirium that could be related to hospitalization-induced delirium, infectious process, or toxic induced related to cefepime. The patient was also started on a prednisone taper, although the dose is low, but she could also have some psychiatric behavior related to it. Other differential diagnosis includes encephalitis or complex partial seizures, but these are less likely given the clinical presentation and her slight clinical improvement. According to the sitter, the patient has waxing and waning mentation consistent with delirium. She was able to talk to her in a calm demeanor and requested for him to come and visit her in the hospital just recently. This was a significant change from her behavior and agitation this morning. 2. Resting and action induced tremors- she may be developing mild extrapyramidal side effects related to the seroquel and Haldol. 3. History of stroke involving the left posterior cerebral artery. 4.History of atrial fibrillation, on Coumadin with therapeutic INR. 5. Leukocytosis with some known chronicity - defer to the primary team, but the consideration of possible paranasal sinusitis causing leukocytosis is in the differential. RECOMMENDATIONS: Neuro checks every 4 hours. Please order an EEG to be done tomorrow to evaluate for the degree of encephalopathy and to look for triphasic waves. Ordered vitamin B12, TSH, and ammonia levels. Please check lamotrigine and levetiracetam levels to make sure she is not toxic. The patient was seen by Dr. Pandey in the outpatient clinic. I will ask Dr. Pandey to check back on her tomorrow morning to see if she is back at her baseline. If not, the patient will most likely need an MRI of the brain without contrast to look for any new structural abnormalities and possibly a lumbar puncture to look for encephalitis. Again, meningitis is low on the differential and given that the patient is not complaining of any headaches, prophylactic antibiotic treatment is unnecessary at this time. If she does not get better though, or has worsening leukocytosis, she would need to be started on prophylactic antibiotics and a lumbar puncture should be considered. Start IV fluids with the precautions of not putting her back in pulmonary edema. Please hold all antipsychotic therapy as it appears that the patient is developing mild EPS symptoms. If necessary, low dose Seroquel can be given. Please check an EKG to make sure the QRS complex is not prolonged. We will continue to follow. I discussed these recommendations with Dr. Pickard. TIME SPENT: 75 minutes of which more than 50% was spent obtaining history, examining the patient, education and counseling, discussing fall precautions with the sitter and nursing staff, and discussing the treatment plan with the primary team. [id number]/CPS #: [id number] MTDD
[2019-06-25] MEDS: Warfarin TAB(*) 1 MG PO SCH (17:51)
[2019-06-25] MEDS: Digoxin TAB* 0.125 MG PO SCH (17:51)
[2019-06-25] MEDS: Atorvastatin* 20 MG TAB PO SCH (21:12)
[2019-06-25] MEDS ORDERED: Furosemide IV* 10 MG/ML VIAL (40 MG) IV SLOW PU ONE (21:37)
[2019-06-25] MEDS ORDERED: Furosemide IV* 10 MG/ML VIAL (40 MG) ONE (21:40)
--- NOTE | 2019-06-25 21:59 | PN ---
Hospitalist Progress Note Date of Service: 06/25/19 HOSPITALIST ADDENDUM Called by RN because patient is in severe respiratory distress. Received Levalbuterol with no improvement. Mrs Patel is a 79yo F with PMH of Afib, CAD, diastolic CHF, HTN, recent MO, MR, CVA, seizure disorder, COPD on home O2, who presented to ED on 06/23/19 in respiratory distress requiring BiPAP and altered MS. Her dyspnea was felt to be secondary to flash pulmonary edema and she was described as in NAD with clear lung sounds earlier today. Selected Entries 06/25/19 06/25/19 15:00 21:39 Temperature 98.3 F Pulse Rate 105 Respiratory 27 Rate Blood Pressure 131/79 (mmHg) O2 Sat by Pulse 98 Oximetry Oxygen Flow 4 Rate CVS: normal S1 and S2, irregularly irregular, +SM Chest: BS+ bilaterally with diffuse crackles and rhonchi A/P: Acute pulmonary edema - Furosemide 40mg IV stat. - Rescue BiPAP stat. - Transfer to ICU. - Portable CxR.
[2019-06-25 22:53] LABS: Troponin I 0.06 ng/mL (<0.04)
[2019-06-25 23:27] LABS: Urine Appearance Clear; Urine Bilirubin Negative (Negative); Urine Blood Negative (Negative); Urine Color Yellow; Urine Glucose Negative (Negative); Urine Ketones Negative (Negative); Urine Nitrite Negative (Negative); Urine Protein Negative (Negative); Urine Specific Gravity 1.008 (1.010-1.030); Urine Urobilinogen Negative (Negative)
[2019-06-26 02:56] LABS: Troponin I 0.11 ng/mL (<0.04)
[2019-06-26 04:24] LABS: ABS Basophils 0.1 10^3/ul (0-0.2); ABS Lymphocytes 1.7 10^3/ul (1.0-4.8); ABS Monocytes 1.5 10^3/ul (0-0.8); ABS Neutrophils 18.7 10^3/ul (1.5-7.7); Eosinophil % 0.1 %; Hematocrit 28 % (35-47); Hemoglobin 9.2 g/dL (12.0-16.0); Lymphocyte % 7.8 %; Mean Corpuscular HGB Conc 33 g/dL (31-36); Mean Corpuscular Hemoglobin 28 pg (27-31); Mean Corpuscular Volume 88 fL (80-97); Mean Platelet Volume 9.9 fL (7.4-10.4); Platelet Count 226 10^3/uL (150-450); Red Blood Count 3.23 10^6 /uL (3.70-4.87); Red Cell Distribution Width 22 % (10-15)
[2019-06-26 04:35] LABS: INR 3.94 (0.82-1.09)
[2019-06-26 04:39] LABS: Anion Gap 11 mmol/L (2-11); BUN/Creatinine Ratio 31.4 (8-20); Blood Urea Nitrogen 38 mg/dL (6-24); CO2 Carbon Dioxide 25 mmol/L (22-32); Calcium 8.7 mg/dL (8.6-10.3); Chloride 104 mmol/L (101-111); EGFR African American 51.9 (>60); EGFR Non-African American 42.9 (>60); Glucose 168 mg/dL (70-100); Potassium 4.1 mmol/L (3.5-5.0); Sodium 140 mmol/L (135-145)
[2019-06-26 04:55] LABS: Troponin I 0.12 ng/mL (<0.04)
[2019-06-26] MEDS ORDERED: Furosemide IV* 10 MG/ML 2 ML VIAL (20 MG) IV ONE ×2 (09:45→20:50)
[2019-06-26] MEDS: Carvedilol TAB* 3.125 MG PO SCH (10:00)
[2019-06-26 10:08] LABS: ALT 123 U/L (7-52); AST 61 U/L (13-39); Albumin 3.1 g/dL (3.2-5.2); Alkaline Phosphatase 118 U/L (34-104); Globulin 3.1 g/dL (2-4); Indirect Bilirubin 1.2 mg/dL (0.3-1.0); Total Protein 6.2 g/dL (6.4-8.9)
[2019-06-26] MEDS: Famotidine IV* 10 MG/ML 2 ML (20 mg) IV SLOW PU SCH ×2 (10:15→21:43)
--- NOTE | 2019-06-26 10:26 | CONSULT ---
Consult Consult: Consultation Note -- Critical Care Requesting Physician: Dr Biswas Reason for consult: respiratory distress, deliriuim Limitations in history/physical: delirium Date of consult: 06/26/2019 HPI: 79y F w/pmhx of CHF, Afib on AC, HTN, HLD, Cad, PVD, COPD, ex-smoker, h/o CVA with right hemianopsia and dysphagia, seizure disorder; Recent admission 2018 to [facility] for AMI and Cardiogenic Shock with shock liver and SEMAJ which resolved; Comes to ER 06/23 for respiratory distress, suspected CHF exacerbation requiring diuresis, had hypertensive urgency also. A question of pneumonia or UTI was also present on admission. TTE during admission revealed intact LV function, mod MR, mild . She is upgraded back to ICU for respiratory distress. Overnight placed on NIV and given Lasix 40mg IV push for a Chest Xray demonstrating pulmonary congestion. She was tachycardia and hypertensive but seemed to have improved. This morning she is on 3 L NC, not sig tachypnea now but very confused/delirious, moving all extremities, unable to tell me where and who she is. Lungs sound clear with minimal crackles heard on left side. She has a sitter to watch for safety. 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 Allergies: Allergies Allergy/AdvReac Type Severity Reaction Status Date / Time No Known Allergies Allergy Verified 06/23/19 04:24 Home Medications: Digoxin TAB* [Lanoxin TAB*] 0.125 mg PO DAILY 11/14/17 [History Confirmed ] levETIRAcetam TAB* [Keppra TAB*] 750 mg PO BID tab 11/16/17 [Rx Confirmed 06/23] Atorvastatin* [Lipitor 20 MG*] 20 mg PO BEDTIME 12/01/18 [History Confirmed ] lamoTRIgine TAB(*) [Lamictal TAB(*)] 100 mg PO BID 12/01/18 [History Confirmed 06/23/19] Carvedilol TAB* [Coreg TAB*] 3.125 mg PO BID #60 tab 06/19/19 [Rx Confirmed ] Furosemide TAB* [Lasix TAB*] 20 mg PO 0800 5 Days #30 tab 06/19/19 [Rx Confirmed 06/23/19] Levalbuterol 0.63MG/3ML NEB* [Xopenex 0.63MG/3ML NEB*] 0.31 mg INH Q6H PRN #30 neb.soln 06/19/19 [Rx Confirmed 06/23/19] Spironolactone TAB* [Aldactone TAB 25 MG*] 12.5 mg PO DAILY #30 tab 06/19/19 [ Rx Confirmed 06/23/19] predniSONE TAB* [Deltasone 20 MG TAB*] 5 mg PO DAILY #10 tab 06/19/19 [Rx Confirmed 06/23/19] Cephalexin 500 mg PO QID 06/23/19 [History Confirmed 06/23/19] Warfarin TAB(*) [Coumadin TAB(*)] 0.5 mg PO DAILY@1700 06/23/19 [History Confirmed 06/23/19] Tele: Afib, rate controlled Vitals: Vital Signs Temp 98.1 F 06/26/19 07:26 Pulse 80 06/26/19 08:32 Resp 30 06/26/19 09:01 BP 160/106 06/26/19 09:01 Pulse Ox 99 06/26/19 08:32 Intake & Output 06/25/19 06/26/19 06/26/19 18:59 06:59 18:59 Intake Total 980 0 Output Total 1266 170 Balance 980 -8856 -170 Weight 51.1 kg Intake: Oral 980 0 Output: Garcia 1266 170 Other: Estimated Void Medium # Bowel Movements 1 Estimated Stool Amount Small Small # Voids 3 O2/Vent: NC 3 L Infusions: heplock Current Medications: Acetaminophen (Tylenol Tab*) 650 mg PO Q4H PRN PRN Reason: FEVER/PAIN Atorvastatin Calcium (Lipitor*) 20 mg PO BEDTIME NIC Last Admin: 06/25/19 21:12 Dose: 20 mg Carvedilol (Coreg Tab*) 3.125 mg PO BID [facility] Last Admin: 06/25/19 21:12 Dose: 3.125 mg Digoxin (Lanoxin Tab*) 0.125 mg PO 1700 [facility] Last Admin: 06/25/19 17:51 Dose: 0.125 mg Famotidine (Pepcid Iv*) 20 mg IV SLOW PU BID [facility] Last Admin: 06/25/19 21:13 Dose: 20 mg Lamotrigine (Lamictal Tab(*)) 100 mg PO BID [facility] Last Admin: 06/25/19 21:12 Dose: 100 mg Levalbuterol HCl (Xopenex 0.63mg/3ml Neb*) 0.31 mg INH Q6H PRN PRN Reason: SOB/WHEEZING Last Admin: 06/25/19 21:39 Dose: 0.63 mg Levetiracetam (Keppra Tab*) 750 mg PO BID [facility] Last Admin: 06/25/19 21:12 Dose: 750 mg Spironolactone (Aldactone Tab*) 12.5 mg PO DAILY [facility] Last Admin: 06/25/19 08:30 Dose: 12.5 mg Warfarin Sodium (Coumadin Tab(*)) 0.5 mg PO DAILY@1700 [facility]; Protocol Last Admin: 06/25/19 17:51 Dose: 0.5 mg Physical Exam: Constitutional: awake, confused, delirious, no distress, no diaphoresis, restless at times Head: normocephalic, atraumatic Eyes: no pallor, no icterus ENT: moist mucous membranes Neck: soft, supple, no jvd, no stridor CVS: normal rate, irregular, no murmur Resp: bilateral air entry, minimal left sided rhales, no wheeze, no rhonchi, no acc muscle use Abdomen/GI: soft, NT, ND, BS+ Ext/Msk: warm, pulses+, no edema Skin: intact, warm Neuro: awake, alert, oriented x1, moving all extremities, pupils reactive Labs: Laboratory Results - last 24 hr 06/25/19 06/25/19 06/25/19 08:12 12:32 22:25 WBC RBC Hgb Hct MCV MCH MCHC RDW Plt Count MPV Neut % (Auto) Lymph % (Auto) [place] % (Auto) Eos % (Auto) Baso % (Auto) Absolute Neuts (auto) Absolute Lymphs (auto) Absolute Monos (auto) Absolute Eos (auto) Absolute Basos (auto) Absolute Nucleated RBC Nucleated RBC % INR (Anticoag Therapy) Patient Temperature ABG pH ABG pH (Temp Correct) ABG pCO2 ABG pCO2 (Temp Corrct ABG pO2 ABG pO2 (Temp Correct ABG HCO3 ABG O2 Saturation ABG Base Excess Respiration Rate Ventilator Type Vent Mode FiO2 Inspiratory Time PEEP Pressure Support Pressure Control EPAP IPAP BiPAP Sodium 138 Potassium 4.0 Chloride 105 Carbon Dioxide 23 Anion Gap 10 BUN 36 H Creatinine 1.03 H Est GFR ( Amer) 62.5 Est GFR (Non-Af Amer) 51.7 BUN/Creatinine Ratio 35.0 H Glucose 156 H Lactic Acid Calcium 9.0 Total Bilirubin Direct Bilirubin Indirect Bilirubin AST ALT Alkaline Phosphatase Ammonia 43 Troponin I 0.06 H* B-Natriuretic Peptide Total Protein Albumin Globulin Albumin/Globulin Ratio Vitamin B12 1300 H TSH 3.42 Urine Color Urine Appearance Urine pH Ur Specific [place] Urine Protein Urine Ketones Urine Blood Urine Nitrate Urine Bilirubin Urine Urobilinogen Ur Leukocyte Esterase Urine Glucose 06/25/19 06/25/19 06/26/19 22:50 23:04 02:16 WBC RBC Hgb Hct MCV MCH MCHC RDW Plt Count MPV Neut % (Auto) Lymph % (Auto) [place] % (Auto) Eos % (Auto) Baso % (Auto) Absolute Neuts (auto) Absolute Lymphs (auto) Absolute Monos (auto) Absolute Eos (auto) Absolute Basos (auto) Absolute Nucleated RBC Nucleated RBC % INR (Anticoag Therapy) Patient Temperature Not Reportable ABG pH 7.45 ABG pH (Temp Correct) Not Reportable ABG pCO2 37 ABG pCO2 (Temp Corrct Not Reportable ABG pO2 82 ABG pO2 (Temp Correct Not Reportable ABG HCO3 26.3 ABG O2 Saturation 97.6 ABG Base Excess 1.8 Respiration Rate Not Reportable Ventilator Type Not Reportable Vent Mode Not Reportable FiO2 50 Inspiratory Time Not Reportable PEEP Not Reportable Pressure Support Not Reportable Pressure Control Not Reportable EPAP Not Reportable IPAP Not Reportable BiPAP Not Reportable Sodium Potassium Chloride Carbon Dioxide Anion Gap BUN Creatinine Est GFR ( Amer) Est GFR (Non-Af Amer) BUN/Creatinine Ratio Glucose Lactic Acid Calcium Total Bilirubin Direct Bilirubin Indirect Bilirubin AST ALT Alkaline Phosphatase Ammonia Troponin I 0.11 H* B-Natriuretic Peptide Total Protein Albumin Globulin Albumin/Globulin Ratio Vitamin B12 TSH Urine Color Yellow Urine Appearance Clear Urine pH 6.0 Ur Specific [place] 1.008 L Urine Protein Negative Urine Ketones Negative Urine Blood Negative Urine Nitrate Negative Urine Bilirubin Negative Urine Urobilinogen Negative Ur Leukocyte Esterase Negative Urine Glucose Negative 06/26/19 06/26/19 06/26/19 04:09 04:09 04:09 WBC 22.0 H RBC 3.23 L Hgb 9.2 L Hct 28 L MCV 88 MCH 28 MCHC 33 RDW 22 H Plt Count 226 MPV 9.9 Neut % (Auto) 84.9 Lymph % (Auto) 7.8 [place] % (Auto) 6.7 Eos % (Auto) 0.1 Baso % (Auto) 0.5 Absolute Neuts (auto) 18.7 H Absolute Lymphs (auto) 1.7 Absolute Monos (auto) 1.5 H Absolute Eos (auto) 0.0 Absolute Basos (auto) 0.1 Absolute Nucleated RBC 0.0 Nucleated RBC % 0.0 INR (Anticoag Therapy) 3.94 H Patient Temperature ABG pH ABG pH (Temp Correct) ABG pCO2 ABG pCO2 (Temp Corrct ABG pO2 ABG pO2 (Temp Correct ABG HCO3 ABG O2 Saturation ABG Base Excess Respiration Rate Ventilator Type Vent Mode FiO2 Inspiratory Time PEEP Pressure Support Pressure Control EPAP IPAP BiPAP Sodium 140 Potassium 4.1 Chloride 104 Carbon Dioxide 25 Anion Gap 11 BUN 38 H Creatinine 1.21 H Est GFR ( Amer) 51.9 Est GFR (Non-Af Amer) 42.9 BUN/Creatinine Ratio 31.4 H Glucose 168 H Lactic Acid Calcium 8.7 Total Bilirubin 2.00 H Direct Bilirubin 0.80 H Indirect Bilirubin 1.2 H AST 61 H ALT 123 H Alkaline Phosphatase 118 H Ammonia Troponin I 0.12 H* B-Natriuretic Peptide Total Protein 6.2 L Albumin 3.1 L Globulin 3.1 Albumin/Globulin Ratio 1.0 Vitamin B12 TSH Urine Color Urine Appearance Urine pH Ur Specific [place] Urine Protein Urine Ketones Urine Blood Urine Nitrate Urine Bilirubin Urine Urobilinogen Ur Leukocyte Esterase Urine Glucose 06/26/19 06/26/19 04:09 04:09 WBC RBC Hgb Hct MCV MCH MCHC RDW Plt Count MPV Neut % (Auto) Lymph % (Auto) [place] % (Auto) Eos % (Auto) Baso % (Auto) Absolute Neuts (auto) Absolute Lymphs (auto) Absolute Monos (auto) Absolute Eos (auto) Absolute Basos (auto) Absolute Nucleated RBC Nucleated RBC % INR (Anticoag Therapy) Patient Temperature ABG pH ABG pH (Temp Correct) ABG pCO2 ABG pCO2 (Temp Corrct ABG pO2 ABG pO2 (Temp Correct ABG HCO3 ABG O2 Saturation ABG Base Excess Respiration Rate Ventilator Type Vent Mode FiO2 Inspiratory Time PEEP Pressure Support Pressure Control EPAP IPAP BiPAP Sodium Potassium Chloride Carbon Dioxide Anion Gap BUN Creatinine Est GFR ( Amer) Est GFR (Non-Af Amer) BUN/Creatinine Ratio Glucose Lactic Acid 2.2 H* Calcium Total Bilirubin Direct Bilirubin Indirect Bilirubin AST ALT Alkaline Phosphatase Ammonia Troponin I B-Natriuretic Peptide 964 H Total Protein Albumin Globulin Albumin/Globulin Ratio Vitamin B12 TSH Urine Color Urine Appearance Urine pH Ur Specific [place] Urine Protein Urine Ketones Urine Blood Urine Nitrate Urine Bilirubin Urine Urobilinogen Ur Leukocyte Esterase Urine Glucose Imaging: CXR 06/25 pulmonary congestion+ EKG 06/25 afib, Anterior Qwaves indicative of old AW infarct, lateral twave inversions, LBBB pattern CXR 06/26 pending Assessment: 79y F w/pmhx of CHF, Afib on AC, HTN, HLD, Cad, PVD, COPD, ex-smoker , h/o CVA with right hemianopsia and dysphagia, seizure disorder; Recent admission 05/2019 to [facility] for AMI and Cardiogenic Shock with shock liver and SEMAJ which resolved; Comes to ER 06/23 for respiratory distress, suspected CHF exacerbation requiring diuresis, had hypertensive urgency also. A question of pneumonia or UTI was also present on admission. TTE during admission revealed intact LV function, mod MR, mild . She is upgraded back to ICU for respiratory distress. Overnight placed on NIV and given Lasix 40mg IV push for a Chest Xray demonstrating pulmonary congestion. She was tachycardia and hypertensive but seemed to have improved. This morning she is on 3 L NC, not sig tachypnea now but very confused/delirious, moving all extremities, unable to tell me where and who she is. Lungs sound clear with minimal crackles heard on left side. She has a sitter to watch for safety. Afebrile overnight -Acute decompensated LV diastolic heart failure -Acute hypoxic respiratory failure -Acute Pulmonary Edema -elevated LFTs -Delirium Hypertension CAD/MA Afib Plan: Neuro- -confused; neuro following -CT brain on admission without acute process -cont keppra and lamictal for previous seizure history -EEG today for eval of nonconvulsive status for change in mental status -check ammonia level -noted previosu CVA history -Delirium prec; avoid BDZ CVS- -BP stable; HR stable -cont statin; add ASA for CAD -AFib; rate controlled; cont dig/coreg -hold warfarin for INR >3; daily INR -repeat lasix 20mg IV x1 today -cont aldactone daily -Maintain MAP>65 Resp- -NC 3 L -CXR 06/25 with bilateral pulm congestion+ -appears to have improved BS and far less rhales; will repeat diuretics -PRN NIV if in distress -Wean Fio2 to keep sat>92% -Bronchodilators PRN, Aspiration prec ID- afebrile. wbc 19-22 now -check LA -no clear infectious process noted; previous urinalysis negative -CXR more so congestive GI- -can resume PO diet if not very lethargic -GI prophylaxis as needed Renal- -Renal insuff; s/p lasix with good urine output -CXR with congestion -garcia+ -K okay, Mg okay -repeat lasix 20mg IV x1 today -strict I/O, replete to keep K>4, Mg>2 -garcia as indicated Heme- anemia; hg stable -plt stable; start ASA for CAd Endo- Maintain BG<200, insulin protocol as needed Musculsk- pressure ulcer prophylaxis; oob to chair as tolerated Wounds- none Nutrition- po diet DVT prophylaxis: none GI prophylaxis: warfarin Central Line: no Arterial Line: no Garcia Cathetor: yes Disposition: Patient requires Critical Care/ICU for respiratory distress, pulmonary edema Patient Clinical Status: guarded Code Status: full code Total Critical Care time is 40 minutes, excluding procedures/teaching Kendell Underwood MD [employer] Reading Teacher (Electronically Signed)
[2019-06-26] MEDS: levETIRAcetam TAB* 500 MG PO SCH (10:35)
[2019-06-26] MEDS: Spironolactone TAB* 25 MG PO SCH (10:35)
[2019-06-26] MEDS: lamoTRIgine TAB(*) 100 MG PO SCH ×2 (10:36→21:30)
[2019-06-26 10:52] LABS: Troponin I 0.08 ng/mL (<0.04)
[2019-06-26] MEDS ORDERED: Thiamine INJ* 500 MG in NS 0.9% 250 ML* 250 ML IV ONE (12:30)
--- NOTE | 2019-06-26 14:11 | EEG ---
ELECTROENCEPHALOGRAM REPORT: DATE OF STUDY: 06/26/19 LOCATION: She is in room 450. REFERRING PROVIDER: Dr. Maura Pickard. CLINICAL PROBLEM: Delirium, history of epilepsy, new onset hepatic insufficiency or failure. MEDICATIONS: Include: 1. Coumadin. 2. Digoxin. 3. Lamotrigine. 4. Keppra. 5. Carvedilol. 6. Lipitor. REPORT: This 19-channel EEG is remarkable for background rhythms consisting of diffuse slowing. High voltage somewhat triphasic appearing waves appear not infrequently through the tracing and are more prominent from the right hemisphere than the left. However, there is not a typical triphasic frontal to occipital gradient, but rather waveforms are of that nature and more prominent in the right occipital region. There are no clearly formed sharp waves or spike discharges. Slower waveforms seemed to be emanating from the right hemisphere. The patient is clinically confused. The cardiac rhythm appears to be atrial fibrillation. Activation procedures were not attempted. There are no clear sleep stages. There are no clinical events. CLINICAL IMPRESSION: Abnormal EEG due to marked slowing and disorganization of background rhythms with slower rhythms coming from the right hemisphere. There are no epileptiform discharges or clinical events during this recording. This tracing is compatible with diffuse cerebral dysfunction, perhaps more prominently from the right hemisphere than the left. [id number]/[facility] #: [id number] [facility]ITALRozina
[2019-06-26] MEDS ORDERED: Haloperidol INJ IV/IM* 5 MG/ML AMP ONE (15:05)
[2019-06-26] MEDS ORDERED: Haloperidol INJ IV/IM* 5 MG/ML AMP IV SLOW PU ONE (15:09)
[2019-06-26] MEDS ORDERED: Metoprolol Tartrate IV* 1 MG/ML 5 ML VIAL IV PRN (15:10)
[2019-06-26] MEDS ORDERED: Metoprolol Tartrate IV* 1 MG/ML 5 ML VIAL ONE (15:12)
[2019-06-26] MEDS ORDERED: Metoprolol Tartrate IV* 1 MG/ML 5 ML VIAL IV SCH (15:30)
[2019-06-26] MEDS ORDERED: HYDROmorphone INJ1* 1 MG/ML SYRINGE IV SLOW PU ONE (16:42)
--- NOTE | 2019-06-26 17:40 | CONS ---
NEUROLOGY CONSULT FOLLOWUP NOTE: DATE OF FOLLOWUP: 06/26/19 LOCATION: She is an inpatient in ICU, bed 5. MEDICAL BILLING COORDINATOR: Dr. Underwood. CHIEF COMPLAINT: Confusion, delirium. INTERVAL HISTORY: Since yesterday, Abeba has continued to have intermittent agitated delirium requiring doses of haloperidol. She just received a dose earlier this afternoon. I reviewed her records since she came in. I have known Abeba Patel for many years. 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 She has had at least mild cognitive impairment for the last year or more. 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 MEDICATIONS: Reviewed and currently, she is on: 1. Metoprolol 5 mg IV q.6 hours. 2. Warfarin, which is being held because of an elevated INR. 3. Thiamine 200 mg IV q.24 hours. 4. Seroquel 25 mg p.o. q.24 hours. 5. Aldactone 12.5 mg p.o. daily. 6. Keppra 750 mg p.o. b.i.d. 7. Lamotrigine 100 mg p.o. b.i.d. 8. Haloperidol 5 mg IV q.12 hours as needed for agitation. 9. Pepcid 20 mg IV b.i.d. 10. Digoxin 0.125 mg p.o. daily. 11. Atorvastatin 40 mg p.o. daily. PHYSICAL EXAM: She is thin and pale relative to my last visit with her. Most recent temperature 97.2 by temporal scan, blood pressure 101/71, heart rate is in the 70s, respiratory rate is 16, and oxygen saturation is 100% on supplemental oxygen. She is drowsy, but arouses to voice. She mumbles incoherently, but does say a few intelligible words. She says she recognizes me, but is not able to produce my name. When asked if she is thirsty, she responds yes. She denies headache. She has extremely impaired attention and concentration. She has some paratonia in the limbs. She has mild myoclonus in the hands. DIAGNOSTIC STUDIES/LAB DATA: Laboratory data is reviewed. Chemistries from today notable for a BUN of 38; which is stable or little bit elevated compared to the last couple of days, creatinine 1.21 which is stable. Electrolytes are unremarkable. Lactic acid remains elevated this morning at 2.1, calcium is normal at 8.7, magnesium on admission on 06/23/19 was normal at 1.9. She has an elevated bilirubin at 2.0 today; it is up a bit from when she came in at 1.7. AST is elevated at 61, which is stable through this current hospitalization, ALT elevated at 123 which is likewise fairly stable from this hospitalization. Ammonia level today is within normal limits at 43. Her TSH yesterday was normal at 3.42. Vitamin B12 level yesterday elevated at 1300. She had an EEG earlier today, which I reviewed. It reveals diffuse slowing with high-voltage slowing seen more prominently from the right hemisphere than the left, but bilaterally. There were no epileptiform discharges. Levetiracetam and lamotrigine levels are pending. IMPRESSION AND PLAN: Impression is that of agitated delirium in a patient who had a myocardial infarction earlier this year with shock liver. She presented with respiratory failure, but was able to get by without intubation. Since then , she has had intermittent agitated delirium requiring doses of haloperidol. I have decreased her lamotrigine to 50 mg twice per day as it is at least partially hepatically metabolized and it is recommended that with moderate-to- severe liver dysfunction it would be cut by 50%. Her last lamotrigine level on 12/01/18 was 12.3, which was at the upper end of the therapeutic range. I have spoken with Dr. Underwood and suggested an MRI of the brain without contrast to see if she has had any more cerebrovascular accidents. I have also discussed with him the possibility of a lumbar puncture if she does not improve and of course, if her INR is brought down to a safe enough level to do it. I will continue to follow her with you daily. [id number]/[facility] #: [id number] [facility]ENTERRozina
[2019-06-26] MEDS: Atorvastatin* 40 MG TAB PO SCH (18:06)
[2019-06-26] MEDS: Digoxin TAB* 0.125 MG PO SCH (18:06)
[2019-06-26] MEDS ORDERED: Haloperidol INJ IV/IM* 5 MG/ML AMP IV SLOW PU PRN (21:00)
[2019-06-26] MEDS: QUEtiapine TAB* 25 MG PO SCH (21:31)
[2019-06-26] MEDS: levETIRAcetam IV* 750 MG in NS 0.9% 100 ML* 100 ML IVPB SCH (21:39)
[2019-06-26] MEDS: Metoprolol Tartrate IV* 1 MG/ML 5 ML VIAL IV SCH (23:29)
[2019-06-27] MEDS: Haloperidol INJ IV/IM* 5 MG/ML AMP IV SLOW PU PRN ×2 (04:07→17:37)
[2019-06-27] MEDS: Metoprolol Tartrate IV* 1 MG/ML 5 ML VIAL IV SCH ×6 (05:26→21:00)
[2019-06-27 06:18] LABS: Hematocrit 28 % (35-47); Hemoglobin 9.3 g/dL (12.0-16.0); Mean Corpuscular HGB Conc 33 g/dL (31-36); Mean Corpuscular Hemoglobin 29 pg (27-31); Mean Corpuscular Volume 88 fL (80-97); Mean Platelet Volume 9.9 fL (7.4-10.4); Platelet Count 190 10^3/uL (150-450); Red Blood Count 3.16 10^6 /uL (3.70-4.87); Red Cell Distribution Width 22 % (10-15); White Blood Count 11.7 10^3/uL (3.5-10.8)
[2019-06-27 06:27] LABS: INR 2.82 (0.82-1.09)
[2019-06-27 06:28] LABS: BUN/Creatinine Ratio 26.7 (8-20); Calcium 8.5 mg/dL (8.6-10.3); EGFR African American 61.2 (>60); EGFR Non-African American 50.6 (>60); Magnesium 1.7 mg/dL (1.9-2.7); Potassium 3.2 mmol/L (3.5-5.0)
[2019-06-27] MEDS ORDERED: hydrALAZINE IV* 20 MG/ML VIAL IV SLOW PU PRN (07:53)
[2019-06-27] MEDS ORDERED: POTASSIUM CHLORIDE IVPB ONE (08:00)
[2019-06-27] MEDS ORDERED: NS 0.9% IVPB ONE (08:00)
[2019-06-27] MEDS ORDERED: Magnesium Sulfate 2 GM IV* 2 GM/50 ML BAG IVPB ONE (08:27)
[2019-06-27] MEDS: lamoTRIgine TAB(*) 100 MG PO SCH ×2 (09:22→20:06)
[2019-06-27] MEDS: Spironolactone TAB* 25 MG PO SCH (09:23)
[2019-06-27] MEDS: Famotidine IV* 10 MG/ML 2 ML (20 mg) IV SLOW PU SCH ×2 (09:42→20:52)
[2019-06-27] MEDS: levETIRAcetam IV* 750 MG in NS 0.9% 100 ML* 100 ML IVPB SCH ×2 (09:44→20:52)
[2019-06-27] MEDS ORDERED: KCL 20 MEQ/100 ML IVPREMIX* 20 MEQ/100 ML BAG IV ONE (09:50)
--- NOTE | 2019-06-27 09:59 | PN ---
Progress Note - Progress Note Date of Service: 06/27/19 Note: Progress Note -- Critical Care 24 hour events -no events overnight -in bed, awake, calm but still confused and disoriented -remains on NC, off NIV since yesterday -afebrile , BP 90-100s, HR stable -no distress noted Tele: Afib, rate controlled Vitals: Vital Signs Temp 97.6 F 06/27/19 09:30 Pulse 83 06/27/19 09:00 Resp 35 06/27/19 09:00 BP 144/107 06/27/19 09:00 Pulse Ox 94 06/27/19 09:00 Intake & Output 06/26/19 06/27/19 06/27/19 18:59 06:59 18:59 Intake Total 260 110 Output Total 1345 1520 130 Balance -1085 -1410 -130 Weight 48.7 kg Intake: IVPB 260 110 Keppra 110 NS (0.9%) 260 Output: Garcia 1345 1520 130 O2/Vent: NC 3 L Infusions: heplock Current Medications: Acetaminophen (Tylenol Tab*) 650 mg PO Q4H PRN PRN Reason: FEVER/PAIN Atorvastatin Calcium (Lipitor*) 40 mg PO 1700 [facility] Last Admin: 06/26/19 18:06 Dose: Not Given Digoxin (Lanoxin Tab*) 0.125 mg PO 1700 [facility] Last Admin: 06/26/19 18:06 Dose: Not Given Famotidine (Pepcid Iv*) 20 mg IV SLOW PU BID [facility] Last Admin: 06/26/19 21:43 Dose: 20 mg Haloperidol Lactate (Haldol Inj Iv/Im*) 2.5 mg IV SLOW PU Q12H PRN PRN Reason: AGITATION Last Admin: 06/27/19 04:07 Dose: 2.5 mg Hydralazine HCl (Apresoline Iv*) 5 mg IV SLOW PU Q4H PRN PRN Reason: SBP > 160 Thiamine HCl 200 mg/ Sodium (Chloride) 102 mls @ 204 mls/hr IV Q24H [facility] Stop: 07/02/19 11:59 Levetiracetam 750 mg/ Sodium (Chloride) 107.5 mls @ 410 mls/hr IVPB Q12H [facility] Last Admin: 06/26/19 21:39 Dose: 410 mls/hr Lamotrigine (Lamictal Tab(*)) 50 mg PO BID [facility] Last Admin: 06/27/19 09:22 Dose: Not Given Levalbuterol HCl (Xopenex 0.63mg/3ml Neb*) 0.31 mg INH Q6H PRN PRN Reason: SOB/WHEEZING Last Admin: 06/25/19 21:39 Dose: 0.63 mg Metoprolol Tartrate (Lopressor Iv*) 2.5 mg IV Q6H [facility] Last Admin: 06/27/19 06:13 Dose: 2.5 mg Pharmacy Profile Note (Coumadin Per Pharmacy*) 1 note FOLLOW UP .PER PHARMACY PROTOC [facility]; Protocol Quetiapine Fumarate (Seroquel Tab*) 25 mg PO Q24H [facility] Last Admin: 06/26/19 21:31 Dose: Not Given Spironolactone (Aldactone Tab*) 12.5 mg PO DAILY [facility] Last Admin: 06/27/19 09:23 Dose: Not Given Warfarin Sodium (Coumadin Tab(*)) 0.5 mg PO ONCE ONE Stop: 06/27/19 17:01 Physical Exam: Constitutional: awake, confused, no distress, no diaphoresis Head: normocephalic, atraumatic Eyes: no pallor, no icterus ENT: moist mucous membranes Neck: soft, supple, no jvd, no stridor CVS: normal rate, irregular, no murmur Resp: bilateral air entry, improved rhales, no wheeze, no rhonchi, no acc muscle use Abdomen/GI: soft, NT, ND, BS+ Ext/Msk: warm, pulses+, no edema Skin: intact, warm Neuro: awake, alert, oriented x1, moving all extremities, pupils reactive Labs: Laboratory Results - last 24 hr 06/25/19 06/26/19 06/26/19 08:13 04:09 04:09 WBC RBC Hgb Hct MCV MCH MCHC RDW Plt Count MPV Hem Pathologist Commnt INR (Anticoag Therapy) Sodium 140 Potassium 4.1 Chloride 104 Carbon Dioxide 25 Anion Gap 11 BUN 38 H Creatinine 1.21 H Est GFR ( Amer) 51.9 Est GFR (Non-Af Amer) 42.9 BUN/Creatinine Ratio 31.4 H Glucose 168 H Lactic Acid Calcium 8.7 Magnesium Total Bilirubin 2.00 H Direct Bilirubin 0.80 H Indirect Bilirubin 1.2 H AST 61 H ALT 123 H Alkaline Phosphatase 118 H Ammonia Troponin I 0.12 H* B-Natriuretic Peptide 964 H Total Protein 6.2 L Albumin 3.1 L Globulin 3.1 Albumin/Globulin Ratio 1.0 06/26/19 06/26/19 06/26/19 10:08 10:08 10:08 WBC RBC Hgb Hct MCV MCH MCHC RDW Plt Count MPV Hem Pathologist Commnt INR (Anticoag Therapy) Sodium Potassium Chloride Carbon Dioxide Anion Gap BUN Creatinine Est GFR ( Amer) Est GFR (Non-Af Amer) BUN/Creatinine Ratio Glucose Lactic Acid 2.1 H* Calcium Magnesium Total Bilirubin Direct Bilirubin Indirect Bilirubin AST ALT Alkaline Phosphatase Ammonia 43 Troponin I 0.08 H* B-Natriuretic Peptide Total Protein Albumin Globulin Albumin/Globulin Ratio 06/27/19 06/27/19 06/27/19 05:53 05:53 05:53 WBC 11.7 H RBC 3.16 L Hgb 9.3 L Hct 28 L MCV 88 MCH 29 MCHC 33 RDW 22 H Plt Count 190 MPV 9.9 Hem Pathologist Commnt INR (Anticoag Therapy) 2.82 H Sodium 144 Potassium 3.2 L Chloride 105 Carbon Dioxide 29 Anion Gap 10 BUN 28 H Creatinine 1.05 H Est GFR ( Amer) 61.2 Est GFR (Non-Af Amer) 50.6 BUN/Creatinine Ratio 26.7 H Glucose 116 H Lactic Acid Calcium 8.5 L Magnesium 1.7 L Total Bilirubin Direct Bilirubin Indirect Bilirubin AST ALT Alkaline Phosphatase Ammonia Troponin I B-Natriuretic Peptide Total Protein Albumin Globulin Albumin/Globulin Ratio 06/27/19 05:53 WBC RBC Hgb Hct MCV MCH MCHC RDW Plt Count MPV Hem Pathologist Commnt INR (Anticoag Therapy) Sodium Potassium Chloride Carbon Dioxide Anion Gap BUN Creatinine Est GFR ( Amer) Est GFR (Non-Af Amer) BUN/Creatinine Ratio Glucose Lactic Acid 1.9 Calcium Magnesium Total Bilirubin Direct Bilirubin Indirect Bilirubin AST ALT Alkaline Phosphatase Ammonia Troponin I B-Natriuretic Peptide Total Protein Albumin Globulin Albumin/Globulin Ratio Imaging: CXR 06/25 pulmonary congestion+ EKG 06/25 afib, Anterior Qwaves indicative of old AW infarct, lateral twave inversions, LBBB pattern Assessment: 79y F w/pmhx of CHF, Afib on AC, HTN, HLD, Cad, PVD, COPD, ex-smoker , h/o CVA with right hemianopsia and dysphagia, seizure disorder; Recent admission 05/2019 to [facility] for AMI and Cardiogenic Shock with shock liver and SEMAJ which resolved; Comes to ER 06/23 for respiratory distress, suspected CHF exacerbation requiring diuresis, had hypertensive urgency also. A question of pneumonia or UTI was also present on admission. TTE during admission revealed intact LV function, mod MR, mild . She is upgraded back to ICU for respiratory distress. Overnight placed on NIV and given Lasix 40mg IV push for a Chest Xray demonstrating pulmonary congestion. She was tachycardia and hypertensive but seemed to have improved. This morning she is on 3 L NC, not sig tachypnea now but very confused/delirious, moving all extremities, unable to tell me where and who she is. Lungs sound clear with minimal crackles heard on left side. She has a sitter to watch for safety. Afebrile overnight -Acute decompensated LV diastolic heart failure -Acute hypoxic respiratory failure -Acute Pulmonary Edema -elevated LFTs -Delirium Hypertension CAD/IL Afib Plan: Neuro- -confused; neuro following -plan for MRI brain today -cont keppra IV due to inability to take PO; cant given lamictal due to no po; previous seizure history -EEG today for eval of nonconvulsive status for change in mental status -ammonia level normal -haldol PRN IV; bridge to seroquel low dose at night for delirium; seemed to be more alert and less restless with haldol yesterday -Delirium prec; avoid BDZ CVS- -BP stable; HR stable -cont statin; ASA for CAD -AFib; rate controlled; cont dig; d/c coreg; Lopressor 2.5mg iv q6h standing till able to take PO -neg balance post lasix; Na higher now; hold lasix, give PRN -INR 2-3 now; if she cannot take warfarin by tomorrow then may consider IV heparin bridge till able to; daily INR -cont aldactone daily if able to take po -Maintain MAP>65 Resp- -NC 3 L; no NIV required -CXR 06/25 with bilateral pulm congestion+ -appears to have improved/less rhales -Wean Fio2 to keep sat>92% -Bronchodilators PRN, Aspiration prec ID- afebrile. wbc 19-22-11 -Clinicall less congestion -no clear infectious process noted; previous urinalysis negative,cultures neg -monitor off abx GI- -swallow eval today again; yesterday not awake enough and had persistent cough, so kept on cautious side and NPO -GI prophylaxis as needed -aspiration precautions Renal- -CR stable; good urine output -Replete KCL IV 40meq todal -repltee MgS IV -encourage PO intake if able; may need PRN hypotonic solution for hypernatremia -PRN diuretics -d/c garcia today -strict I/O, replete to keep K>4, Mg>2 -garcia as indicated Heme- anemia; hg stable -plt stable; ASA for CAd Endo- Maintain BG<200, insulin protocol as needed Musculsk- pressure ulcer prophylaxis; oob to chair as tolerated Wounds- none Nutrition- po diet DVT prophylaxis: warfarin; SCDs GI prophylaxis: none Central Line: no Arterial Line: no Garcia Cathetor: yes Disposition: resp status stable now, hemodyn stable, ongoing neuro eval and workup; can be stable for medical floor ; will transfer to Dr Biswas service later today Patient Clinical Status: guarded Code Status: full code Kendell Underwood MD [employer] (Electronically Signed)
[2019-06-27] MEDS: THIAMINE IV SCH (13:05)
[2019-06-27] MEDS: NS 0.9% IV SCH (13:05)
[2019-06-27 14:15] LABS: Mycoplasma pneumoniae IgG Ab Positive (Negative); Mycoplasma pneumoniae IgM Ab Negative (Negative)
[2019-06-27] MEDS ORDERED: Warfarin TAB(*) 1 MG PO ONE (17:00)
[2019-06-27] MEDS: Atorvastatin* 40 MG TAB PO SCH (17:17)
[2019-06-27] MEDS: Digoxin TAB* 0.125 MG PO SCH (17:17)
[2019-06-27] MEDS: QUEtiapine TAB* 25 MG PO SCH (20:06)
[2019-06-27] MEDS ORDERED: Haloperidol INJ IV/IM* 5 MG/ML AMP IV SLOW PU ONE (23:50)
[2019-06-28] MEDS: Metoprolol Tartrate IV* 1 MG/ML 5 ML VIAL IV SCH ×4 (03:36→21:24)
--- NOTE | 2019-06-28 08:09 | PN ---
Subjective - Subjective Reason for Note: Progress Note History: I have assumed her internal medicine care and have reviewed the electronic medical record. I was her attending physician during her most recent hospitalization. At that time she had multi-organ failure owing to an cha- septal myocardial infarction. I discharged her to [facility] at [facility]. There, they restarted her anti-convulsants. She presented with acute pulmonary edema and altered mental state. She was initially managed on the ICU with BIPAP. She returned to a general telemetry bed. Her mental state remains altered and she is receiving neuroleptic medication owing to her delirium. She is being followed by neurology. This morning she is not alert or oriented. She is in a delirium. Active Problems: Active Problems Seizure disorder (Chronic) G40.909 Pt with h/o seizure disorder following past CVAs. Continue keppra and lamotrigine. Keppra level sent last night just prior to her receiving her evening dose. DVT prophylaxis (Chronic) Z29.9 therapeutic INR Altered mental state (Acute) R41.82 Pt is even more confused and agitated today compared to yesterday at my visit. Cause of her confusion is not clear. There is no evidence of infection. CT brain negative for any acute findings. ? hospital acquired delirium in the setting of a person who at baseline is mild to moderately confused (per [facility] staff) vs related to EtOH withdrawl (seems unlikely as pt has no other signs of withdrawl) vs non convulsive status (also unlikely given how verbal and active she has been). I trialed seroquel 25mg last night and reportedly she had an ok night. Given the screaming and marked agitation at this time will give haldol 2mg IV x1 now to see if she will settle and be more appropriate with her care. Leukocytosis (Acute) D72.829 Hypokalemia (Acute) E87.6 CHF, acute (Acute) I50.9 Pt was felt to have acute diastolic CHF/flash pulmonary edema on presenation. She required BiPAP for acute hypoxic resp failure. This is now resolved. She is now on RA. Resume lasix and spironolactone- I doubt she will take her meds at this time. Acute renal failure (Acute) COPD (chronic obstructive pulmonary disease) (Chronic) J44.9 No signs of exacerbation. Stop solumedrol. Monitor respiratory status. Multiple cerebral infarctions (Chronic) I63.9 Hemianopia (Chronic) H53.47 Alcohol dependence (Chronic) F10.20 As pt is unable to tell me anything useful, it is unclear if she is still drinking. She does not appear to be withdrawling from EtOH. Atrial fibrillation (Chronic) I48.91 Pt is in afib but controlled rate. Continue coreg and digoxin and coumadin. Recheck INR tomorrow. Pt refused labs this AM. 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 Essential (primary) hypertension (Chronic) I10 Osteoporosis (Chronic) M81.0 Coronary artery disease (Acute) I25.10 Systolic CHF (Acute) I50.20 Current Medications: Current Medications Acetaminophen (Tylenol Tab*) 650 mg PO Q4H PRN PRN Reason: FEVER/PAIN Atorvastatin Calcium (Lipitor*) 40 mg PO 1700 [facility] Last Admin: 06/27/19 17:17 Dose: Not Given Digoxin (Lanoxin Tab*) 0.125 mg PO 1700 [facility] Last Admin: 06/27/19 17:17 Dose: Not Given Famotidine (Pepcid Iv*) 20 mg IV SLOW PU BID [facility] Last Admin: 06/27/19 20:52 Dose: 20 mg Haloperidol Lactate (Haldol Inj Iv/Im*) 2.5 mg IV SLOW PU Q12H PRN PRN Reason: AGITATION Last Admin: 06/27/19 17:37 Dose: 2.5 mg Hydralazine HCl (Apresoline Iv*) 5 mg IV SLOW PU Q4H PRN PRN Reason: SBP > 160 Last Admin: 06/27/19 14:11 Dose: 5 mg Thiamine HCl 200 mg/ Sodium (Chloride) 102 mls @ 204 mls/hr IV Q24H [facility] Stop: 07/02/19 11:59 Last Admin: 06/27/19 13:05 Dose: 204 mls/hr Levetiracetam 750 mg/ Sodium (Chloride) 107.5 mls @ 410 mls/hr IVPB Q12H [facility] Last Admin: 06/27/19 20:52 Dose: 410 mls/hr Lamotrigine (Lamictal Tab(*)) 50 mg PO BID [facility] Last Admin: 06/27/19 20:06 Dose: Not Given Levalbuterol HCl (Xopenex 0.63mg/3ml Neb*) 0.31 mg INH Q6H PRN PRN Reason: SOB/WHEEZING Last Admin: 06/25/19 21:39 Dose: 0.63 mg Metoprolol Tartrate (Lopressor Iv*) 2.5 mg IV Q6H [facility] Last Admin: 06/28/19 03:36 Dose: 2.5 mg Pharmacy Profile Note (Coumadin Per Pharmacy*) 1 note FOLLOW UP .PER PHARMACY PROTOC [facility]; Protocol Quetiapine Fumarate (Seroquel Tab*) 25 mg PO Q24H [facility] Last Admin: 06/27/19 20:06 Dose: Not Given Spironolactone (Aldactone Tab*) 12.5 mg PO DAILY [facility] Last Admin: 06/27/19 09:23 Dose: Not Given Home Medications: Home Medications Medication Instructions Recorded Confirmed Type Digoxin TAB* [Lanoxin TAB*] 0.125 mg PO DAILY 11/14/17 06/23/19 History levETIRAcetam TAB* [Keppra TAB*] 750 mg PO BID tab 11/16/17 06/23/19 Rx Atorvastatin* [Lipitor 20 MG*] 20 mg PO BEDTIME 12/01/18 06/23/19 History lamoTRIgine TAB(*) [Lamictal 100 mg PO BID 12/01/18 06/23/19 History TAB(*)] Carvedilol TAB* [Coreg TAB*] 3.125 mg PO BID #60 tab 06/19/19 06/23/19 Rx Furosemide TAB* [Lasix TAB*] 20 mg PO 0800 5 Days #30 tab 06/19/19 06/23/19 Rx Levalbuterol 0.63MG/3ML NEB* 0.31 mg INH Q6H PRN #30 neb.soln 06/19/19 06/23/19 Rx [Xopenex 0.63MG/3ML NEB*] Spironolactone TAB* [Aldactone TAB 12.5 mg PO DAILY #30 tab 06/19/19 06/23/19 Rx 25 MG*] predniSONE TAB* [Deltasone 20 MG 5 mg PO DAILY #10 tab 06/19/19 06/23/19 Rx TAB*] Cephalexin 500 mg PO QID 06/23/19 06/23/19 History Warfarin TAB(*) [Coumadin TAB(*)] 0.5 mg PO DAILY@1700 06/23/19 06/23/19 History Allergies: Allergies Allergy/AdvReac Type Severity Reaction Status Date / Time No Known Allergies Allergy Verified 06/23/19 04:24 Objective - Vital Signs Vital Signs: Vital Signs 06/27/19 06/27/19 06/27/19 09:00 09:30 10:00 Temperature 97.6 F Pulse Rate 83 100 Respiratory 35 40 Rate Blood Pressure 144/107 (mmHg) O2 Sat by Pulse 94 88 Oximetry 06/27/19 06/27/19 06/27/19 11:00 11:23 12:00 Temperature 96.7 F Pulse Rate 81 80 Respiratory 32 28 Rate Blood Pressure 175/104 160/98 (mmHg) O2 Sat by Pulse 95 93 Oximetry 06/27/19 06/27/19 06/27/19 12:19 12:38 13:00 Temperature Pulse Rate 92 Respiratory 20 22 21 Rate Blood Pressure 170/97 (mmHg) O2 Sat by Pulse 91 Oximetry 06/27/19 06/27/19 06/27/19 13:01 14:00 14:01 Temperature Pulse Rate 73 79 86 Respiratory 21 24 19 Rate Blood Pressure 165/92 (mmHg) O2 Sat by Pulse 96 97 96 Oximetry 06/27/19 06/27/19 06/27/19 15:40 19:20 20:06 Temperature 97.8 F 98.5 F Pulse Rate 100 118 Respiratory 26 22 22 Rate Blood Pressure 180/110 150/118 (mmHg) O2 Sat by Pulse 97 96 Oximetry 06/27/19 06/28/19 06/28/19 23:12 02:07 07:35 Temperature 98.7 F 97.9 F Pulse Rate 94 109 Respiratory 16 20 26 Rate Blood Pressure 140/75 150/74 (mmHg) O2 Sat by Pulse 96 97 Oximetry - Intake and Output Intake and Output: Intake & Output 06/25/19 06/26/19 06/27/19 06/28/19 11:59 11:59 11:59 11:59 Intake Total 300 800 370 716 Output Total 1476 2820 80 Balance 787 -493 -3336 636 Weight 112 lb 10.499 oz 107 lb 5.842 oz Intake: IV Fluids 716 Keppra 716 IVPB 370 Keppra 110 NS (0.9%) 260 Oral 300 800 Output: Joya 1476 2820 80 Other: Estimated Void Medium # Bowel Movements 1 Estimated Stool Amount Small # Voids 0 3 ADLs: Meal Record Start: 06/23/19 11: 08 Freq: 09,13,18 Status: Complete Protocol: Created 06/23/19 11:08 System (Rec: 06/23/19 11:08 System [id number]) ADLs: Meal Record Start: 06/23/19 15: 24 Freq: Status: Active Protocol: Created 06/23/19 15:24 [id number] (Rec: 06/23/19 15:24 SBZ9083 ICU-C25) Document 06/23/19 18:00 CQU7296 (Rec: 06/23/19 20:33 JYL5469 TELE-C07) Document 06/24/19 09:00 UTP2490 (Rec: 06/24/19 10:22 RHS8817 TELE-C03) Document 06/24/19 18:00 JKC4852 (Rec: 06/24/19 18:15 YUI4949 TELE-C07) Document 06/25/19 08:58 YCP5747 (Rec: 06/25/19 08:59 WOS9729 TELE-M11) Document 06/25/19 13:57 MFJ8474 (Rec: 06/25/19 13:59 OWB1858 TELE-M11) Document 06/25/19 18:00 LWT1095 (Rec: 06/25/19 22:40 XFA3550 TELE-C05) Document 06/26/19 10:00 FZF1348 (Rec: 06/26/19 11:06 ZBM3295 ICU-C15) Document 06/26/19 18:00 NPO1793 (Rec: 06/26/19 18:05 VAE6387 ICU-L03) ADLs: Meal Record Start: 06/25/19 22: 26 Freq: Status: Complete Protocol: Created 06/25/19 22:26 ROK5323 (Rec: 06/25/19 22:26 HRD2534 ICU-C25) Intake and Output Start: 06/23/19 04: 23 Freq: Status: Inactive Protocol: Created 06/23/19 04:23 System (Rec: 06/23/19 04:23 System [id number]-C10) Intake and Output Start: 06/23/19 11: 08 Freq: Q1HR Status: Inactive Protocol: Created 06/23/19 11:08 System (Rec: 06/23/19 11:08 System PMRU-C05) Document 06/23/19 14:59 GTL8966 (Rec: 06/23/19 15:00 PCS5236 ICU-C25) Intake and Output Start: 06/23/19 15: 24 Freq: DAILY@0600,1400,2200 Status: Inactive Protocol: Document 06/23/19 12:00 LFY9131 (Rec: 06/23/19 15:26 IYR5683 ICU-C25) Created 06/23/19 15:24 JGV2273 (Rec: 06/23/19 15:24 HQX8257 ICU-C25) Document 06/23/19 21:29 ZDU4045 (Rec: 06/23/19 21:30 ESA8265 TELE-C07) Document 06/24/19 06:00 BSR1392 (Rec: 06/24/19 06:06 SHR4712 TELE-C09) Document 06/24/19 22:00 WGH5126 (Rec: 06/24/19 22:36 HAW4864 TELE-C07) Document 06/25/19 05:51 PNW5764 (Rec: 06/25/19 05:52 OAV1166 TELE-C07) Document 06/25/19 12:11 ATB5539 (Rec: 06/25/19 12:12 ANH8321 TELE-M11) Intake and Output Start: 06/25/19 22: 26 Freq: Q1HR Status: Complete Protocol: Created 06/25/19 22:26 WRS4488 (Rec: 06/25/19 22:26 SJK8322 ICU-C25) Document 06/25/19 23:00 XTG4883 (Rec: 06/25/19 23:05 RRH9565 ICU-C25) Document 06/25/19 23:28 MAR8977 (Rec: 06/25/19 23:30 YVQ7496 ICU-C16) Document 06/25/19 23:47 XLY1929 (Rec: 06/25/19 23:47 EWV0238 ICU-C25) Document 06/26/19 01:00 IRK0731 (Rec: 06/26/19 02:24 NFS2095 ICU-C25) Document 06/26/19 02:00 VZZ9005 (Rec: 06/26/19 02:24 AJZ5544 ICU-C25) Document 06/26/19 03:00 RPL0750 (Rec: 06/26/19 03:21 IOB5658 ICU-C25) Document 06/26/19 04:00 SPJ8927 (Rec: 06/26/19 04:13 ACD2614 ICU-C25) Document 06/26/19 05:00 TZB6952 (Rec: 06/26/19 05:01 STW1372 ICU-C25) Document 06/26/19 06:00 KXS8863 (Rec: 06/26/19 06:05 MBQ0102 ICU-C25) Document 06/26/19 07:00 PRN8832 (Rec: 06/26/19 07:58 EMC1063 ICU-C15) Document 06/26/19 07:58 IWS4621 (Rec: 06/26/19 07:58 LNF1306 ICU-C15) Document 06/26/19 09:00 LWP1803 (Rec: 06/26/19 09:41 FVO7503 ICU-C15) Document 06/26/19 10:00 OUO1191 (Rec: 06/26/19 11:07 HNH0032 ICU-C15) Document 06/26/19 11:00 NEU4044 (Rec: 06/26/19 11:07 VOZ2695 ICU-C15) Document 06/26/19 12:00 JTN9944 (Rec: 06/26/19 12:14 EER2436 ICU-C15) Document 06/26/19 13:00 JIN3358 (Rec: 06/26/19 13:22 YMG3990 ICU-C15) Document 06/26/19 14:00 GTV9848 (Rec: 06/26/19 17:56 FJI3672 ICU-L03) Document 06/26/19 15:00 FSB8675 (Rec: 06/26/19 17:57 LDK3557 ICU-L03) Document 06/26/19 16:00 OVG4555 (Rec: 06/26/19 17:57 NBS4445 ICU-L03) Document 06/26/19 17:00 LAG1328 (Rec: 06/26/19 17:57 IKU3105 ICU-L03) Document 06/26/19 17:57 XKS1999 (Rec: 06/26/19 17:57 STV4697 ICU-L03) Document 06/26/19 19:00 CQT3263 (Rec: 06/26/19 19:08 YHX6586 ISDEMO-M03 ) Document 06/26/19 20:00 RZQ8826 (Rec: 06/26/19 20:05 BSX2873 ICU-C15) Document 06/26/19 21:00 BIY5456 (Rec: 06/26/19 22:09 XCU0622 ISDEMO-M03 ) Document 06/26/19 22:00 KFJ7633 (Rec: 06/26/19 22:09 FYV7531 ISDEMO-M03 ) Document 06/26/19 23:00 ZCF2866 (Rec: 06/26/19 23:20 ELJ9597 ICU-C15) Document 06/26/19 23:59 TWT3735 (Rec: 06/26/19 23:59 WZM6071 ICU-C15) Document 06/27/19 01:00 THK0584 (Rec: 06/27/19 01:08 AYH7922 ICU-C15) Document 06/27/19 02:00 UNW4783 (Rec: 06/27/19 02:03 XFK4788 ICU-C15) Document 06/27/19 03:00 WNZ6024 (Rec: 06/27/19 05:10 UQH4701 ICU-C15) Document 06/27/19 04:00 MCS7897 (Rec: 06/27/19 05:10 VCE4297 ICU-C15) Document 06/27/19 06:00 TAF1686 (Rec: 06/27/19 06:02 UUL7595 ICU-C15) Document 06/27/19 08:00 SED8597 (Rec: 06/27/19 08:07 BZB0969 ICU-C15) Document 06/27/19 09:31 HAV7549 (Rec: 06/27/19 09:31 HVL1937 ICU-C15) Document 06/27/19 11:00 VWT1210 (Rec: 06/27/19 11:10 LBF6396 ICU-C15) Document 06/27/19 13:45 XQF8594 (Rec: 06/27/19 13:56 ALC5153 ICU-C15) - Physical Exam General Physical Exam Comment: She is a little cool peripherally. She is in a delirium and is not answering questions with clarity and is disoriented. She is not following commands. General: No Cyanosis, No Anemia, No Jaundice, No Clubbing Lungs and Chest: Yes: Chest Expansion Full, Chest Expansion Symetrica, Crackles , Wheezes, Respiratory Distress, Use of Accessory Muscles. No: Percussion Note Resonant - dull bases, Vessicular Breath Sounds Heart Rate and Rhythm: Irregular Additional Cardiovascular: Yes: Normal Heart Sounds, Heart Murmur. No: Pedal Edema Abdominal Exam: Yes: Soft, Bowel Sounds Present. No: Distention, Abdominal Tenderness Results - Results Lab Results: Laboratory Results - last 24 hr 06/24/19 06/25/19 06/26/19 21:20 08:12 10:05 Procalcitonin 2.0 H Lamotrigine 9.7 Levetiracetam 37.0 Mycoplasma pneumon IgG Positive A Mycoplasma pneumon IgM Negative Radiology Results: Patient Name: ELHAM CHOPRA Medical Record#: [id number] Ordering Physician: Kendell Underwood MD Acct.#: [id number] : 1940 Age: 79 Sex: F Location: INTENSIVE CARE UNIT Exam Date: 06/27/19 0700 ADM Status: ADM IN Order Information: MRI BRAIN W/O Accession Number: [id number] CPT: 44817 INDICATION: Prior CVA. Progressive encephalopathy COMPARISON: December 02, 2018 brain MRI TECHNIQUE: Sagittal T1, axial T1, T2, susceptibility, FLAIR and diffusion weighted images were obtained. FINDINGS: There is no hemorrhagic focus, mass effect or midline shift. No acute infarct is identified. Encephalomalacia is redemonstrated about the old left LAUNDRY AGENT territory infarct. T2 FLAIR hyperintense foci in the periventricular deep white matter, without mass effect, are nonspecific. The midline structures are anatomic. The posterior fossa contents are grossly unremarkable. Cerebral volume loss is characterized by generalized ventricular megaly and sulcal prominence. There is superimposed ex vacuo dilatation of the left lateral ventricle. The basal cisterns are patent. There is no abnormal extra-axial collection. The proximal major intracranial vascular flow voids are preserved. The globes and orbits are grossly symmetric. Air-fluid levels are seen in the dependent maxillary sinuses and sphenoid sinuses. IMPRESSION: 1. No acute intracranial abnormality. 2. Old left LAUNDRY AGENT territory infarct. 3. Moderate chronic small vessel ischemic disease is likely. 4. Moderate cerebral volume loss. 5. Dependent secretions in the maxillary and sphenoid sinuses. This can be seen in the setting of recent intubation or acute sinusitis. <Electronically signed by David Lewis MD in [place]> 06/27/19 1255 Dictated By: David Lewis MD Dictated Date/Time: 06/27/19 1255 Transcribed Date/Time: 06/27/19 1245 Copy to: CC:Jigar Biswas MD; Feng Nash MD; Kendell Underowod MD; Tatiana Corea MD 2 EKG Report: 06/26/19 Rate 79 QTc 416 QRS axis 60 Atrial fibrillation. T inversions V2 - V6, I and AVL I reviewed this tracing. Other Results/Reports: Electroencephalogram Report Patient: ELHAM CHOPRA /Age: 06 1940 79 Medical Record#: [id number] Admission Date: 06/23/19 Provider: Edgar Pandey MD ELECTROENCEPHALOGRAM REPORT: DATE OF STUDY: 06/26/19 LOCATION: She is in room 450. REFERRING PROVIDER: Dr. Maura Pickard. CLINICAL PROBLEM: Delirium, history of epilepsy, new onset hepatic insufficiency or failure. MEDICATIONS: Include: 1. Coumadin. 2. Digoxin. 3. Lamotrigine. 4. Keppra. 5. Carvedilol. 6. Lipitor. REPORT: This 19-channel EEG is remarkable for background rhythms consisting of diffuse slowing. High voltage somewhat triphasic appearing waves appear not infrequently through the tracing and are more prominent from the right hemisphere than the left. However, there is not a typical triphasic frontal to occipital gradient, but rather waveforms are of that nature and more prominent in the right occipital region. There are no clearly formed sharp waves or spike discharges. Slower waveforms seemed to be emanating from the right hemisphere. The patient is clinically confused. The cardiac rhythm appears to be atrial fibrillation. Activation procedures were not attempted. There are no clear sleep stages. There are no clinical events. CLINICAL IMPRESSION: Abnormal EEG due to marked slowing and disorganization of background rhythms with slower rhythms coming from the right hemisphere. There are no epileptiform discharges or clinical events during this recording. This tracing is compatible with diffuse cerebral dysfunction, perhaps more prominently from the right hemisphere than the left. [id number]/[facility] #: [id number] <Electronically signed by Edgar Pandey MD> 06/27/19 0835 Edgar Pandey MD Dictated Date/Time: 06/26/19 1304 Assessment - Problem List Assessment: Patient Problems Seizure disorder (Chronic) DVT prophylaxis (Chronic) Altered mental state (Acute) Leukocytosis (Acute) Hypokalemia (Acute) CHF, acute (Acute) Acute renal failure (Acute) COPD (chronic obstructive pulmonary disease) (Chronic) Multiple cerebral infarctions (Chronic) Hemianopia (Chronic) Alcohol dependence (Chronic) Atrial fibrillation (Chronic) Anticoagulated (Chronic) History of CVA (cerebrovascular accident) (Chronic) Hemianopia, homonymous, 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 This may be aided and abetted by her COPD. This is likely due to her recent myocardial infarction and left ventricular failure. I will restart furosemide, she is taking spironolactone. I will maintain her metoprolol. I will start an ROBERT inhibitor. She is taking warfarin - I don't want to add aspirin owing to risk of hemorrhage. Altered mental state (Acute). This is striking and much more significant than at discharge from her previous admission. This is likely multifactorial. However, it is not due to new stroke or status complex partial seizures. Leukocytosis (Acute) She had a lower respiratory tract infection during her previous admission and she was due to complete cepahalexin as an outpatient. Her procalcitonin is a little elevated. I will check a CRP and if this is significantly elevated, I will treat with an antibacterial Hypokalemia (Acute) I will treat. 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 I will rule out infection as this is something correctable. I think she has a poor prognosis. I tried calling her Kevin Chopra who is her health care proxy - he didn't reply. I will determine further therapy based upon his decision making. I think she has a poor prognosis plus or minus acute medical care.
[2019-06-28] MEDS: lamoTRIgine TAB(*) 100 MG PO SCH ×2 (08:16→20:40)
[2019-06-28] MEDS: Spironolactone TAB* 25 MG PO SCH (08:16)
[2019-06-28 08:28] LABS: Hematocrit 31 % (35-47); Mean Corpuscular HGB Conc 33 g/dL (31-36); Mean Corpuscular Hemoglobin 29 pg (27-31); Mean Corpuscular Volume 89 fL (80-97); Mean Platelet Volume 9.8 fL (7.4-10.4); Platelet Count 202 10^3/uL (150-450); Red Blood Count 3.43 10^6 /uL (3.70-4.87); Red Cell Distribution Width 23 % (10-15); White Blood Count 11.7 10^3/uL (3.5-10.8)
[2019-06-28 08:29] LABS: INR 3.41 (0.82-1.09)
[2019-06-28 08:39] LABS: Calcium 8.9 mg/dL (8.6-10.3); EGFR African American 69.5 (>60); EGFR Non-African American 57.4 (>60); Magnesium 2.3 mg/dL (1.9-2.7); Potassium 4.1 mmol/L (3.5-5.0)
[2019-06-28] MEDS: Haloperidol INJ IV/IM* 5 MG/ML AMP IV SLOW PU PRN ×2 (08:58→20:58)
[2019-06-28] MEDS ORDERED: D5W 1/2 NS KCl 20 Meq 1000 ML* 1,000 ML IV SCH ×2 (09:00)
[2019-06-28] MEDS: Famotidine IV* 10 MG/ML 2 ML (20 mg) IV SLOW PU SCH ×2 (09:13→21:23)
[2019-06-28] MEDS: levETIRAcetam IV* 750 MG in NS 0.9% 100 ML* 100 ML IVPB SCH ×2 (09:21→21:23)
[2019-06-28] MEDS ORDERED: WARFARIN - No Order Today* 1 NOTE MISC FOLLOW UP SCH (10:00)
[2019-06-28 10:20] LABS: C Reactive Protein 110.58 mg/L (<8.01)
[2019-06-28] MEDS: Ramipril CAP* 5 MG PO SCH (13:00)
[2019-06-28] MEDS ORDERED: Piperacillin/Tazobac ADVAN(*) 3.375 GM in NS 0.9% 100 ML* 100 ML IVPB ONE (13:14)
[2019-06-28] MEDS ORDERED: Zosyn per Pharmacy* NOTE FOLLOW UP SCH (14:00)
[2019-06-28] MEDS: predniSONE TAB* 20 MG PO SCH ×2 (15:31→20:40)
[2019-06-28] MEDS: NS 0.9% IV SCH (17:04)
[2019-06-28] MEDS: THIAMINE IV SCH (17:04)
[2019-06-28] MEDS: Digoxin TAB* 0.125 MG PO SCH (17:14)
[2019-06-28] MEDS: Atorvastatin* 40 MG TAB PO SCH (17:14)
[2019-06-28] MEDS ORDERED: hydrALAZINE IV* 20 MG/ML VIAL IV SLOW PU PRN (19:41)
--- NOTE | 2019-06-28 19:46 | CONS ---
NEUROLOGY CONSULTATION FOLLOWUP: DATE OF FOLLOWUP: 06/28/19 PHYSICIAN: Jigar Biswas MD INTERVAL HISTORY: Since seen a couple of days ago in the intensive care unit, Abeba has been delirious. She had required some neuroleptic medications and was put on some Seroquel at bedtime, but was still very delirious when seen by Dr. Biswas earlier today. When I entered the room, she was being fed some soft food being tested for a swallowing capacity and seemed to be doing pretty good. When I addressed her, she opened her eyes and looked at me, she recognized me. She did not immediately say my name, but when I told her I was Dr. Pandey , she said she recognized me and repeated stated "oh, Dr. Pandey, I'm so glad to see you." She denied a headache. She said that she has been very sick, but that she was feeling much better. MEDICATIONS: Reviewed and she is on: 1. Lamotrigine 50 mg p.o. b.i.d. 2. Keppra 750 mg IV q.12 hours. 3. Metoprolol 2.5 mg IV q.6 hours. 4. Haloperidol 2.5 mg IV slow push p.r.n. agitation q.12 hours. 5. Pepcid 20 mg IV b.i.d. 6. Digoxin 0.125 mg p.o. daily. 7. Atorvastatin 40 mg p.o. daily. 8. Acetaminophen 650 mg p.o. q.4 hours as needed for fever or pain. 9. Zosyn, dosing per pharmacy. 10. Quetiapine 25 mg p.o. q.h.s. 11. Prednisone 20 mg p.o. b.i.d. 12. Ramipril 5 mg p.o. daily. 13. Aldactone 12.5 mg p.o. daily. 14. Thiamine 200 mg IV q.24 hours. PHYSICAL EXAMINATION: On exam, she is pale, thin, but well hydrated. Most recent temperature 97.9, heart rate running about 100, respiratory rate is 20, and oxygen saturation is 97% on supplemental oxygen. Most recent blood pressure 150/74. Her sclerae are jaundiced bilaterally. She is lethargic, but awakes to become quite animated and repeat herself over and over. I did not interrupt her swallowing test further. LABORATORY DATA: Laboratory reports are notable for a climbing INR, which was 2.12 when she came in to the hospital on 06/23/19 and it was 3.41 today. Coumadin has been held. Chemistries today notable for sodium up to 148, BUN is up to 31, glucose is fairly stable at 121. C-reactive protein today is quite elevated at 110.58. IMPRESSION AND PLAN: Impression is that of delirium, which for the moment is improved. She is jaundiced and her last bilirubin was 2.0 on 06/26/19. Her ammonia level was normal when checked on 06/26/19 at 43. Her lamotrigine level on 06/19/19 is 9.7 after reduction in dosage, levetiracetam level was 37.0. If she continues to improve tomorrow, then I think we could hold the course, but if she continues to fluctuate or deteriorate, I would recheck her liver functions including ammonia level. I keep the anticonvulsants at their current level. Her EEG showed diffuse slowing, but no epileptiform discharges and so I do not think she is having any active seizure activity. I will continue to follow her along with you. [id number]/[facility] #: [id number] IAN
[2019-06-28] MEDS: QUEtiapine TAB* 25 MG PO SCH (20:40)
[2019-06-28] MEDS: ZOSYN 3.375 GM Q8H per EXTENDED INFUSION IVPB SCH ×4 (21:57→22:02)
[2019-06-29] MEDS ORDERED: NS 0.9% 100 ML* 100 ML ONE ×2 (03:46→20:43)
[2019-06-29] MEDS: Metoprolol Tartrate IV* 1 MG/ML 5 ML VIAL IV SCH ×4 (03:51→20:51)
[2019-06-29] MEDS: ZOSYN 3.375 GM Q8H per EXTENDED INFUSION IVPB SCH ×8 (03:51→22:07)
[2019-06-29 07:54] LABS: ABS Basophils 0.1 10^3/ul (0-0.2); ABS Eosinophils 0.2 10^3/ul (0-0.6); ABS Lymphocytes 1.7 10^3/ul (1.0-4.8); ABS Neutrophils 11.8 10^3/ul (1.5-7.7); Eosinophil % 1.5 %; Hematocrit 32 % (35-47); Hemoglobin 10.3 g/dL (12.0-16.0); Lymphocyte % 11.8 %; Mean Corpuscular HGB Conc 33 g/dL (31-36); Mean Corpuscular Hemoglobin 29 pg (27-31); Mean Corpuscular Volume 90 fL (80-97); Mean Platelet Volume 10.1 fL (7.4-10.4); Nucleated Red Blood Cells % 0.1; Platelet Count 194 10^3/uL (150-450); Red Blood Count 3.51 10^6 /uL (3.70-4.87); Red Cell Distribution Width 23 % (10-15); White Blood Count 14.8 10^3/uL (3.5-10.8)
[2019-06-29] MEDS ORDERED: Furosemide IV* 10 MG/ML VIAL (40 MG) ONE (07:55)
[2019-06-29 07:56] LABS: INR 3.4 (0.82-1.09)
[2019-06-29 08:08] LABS: BUN/Creatinine Ratio 29.8 (8-20); C Reactive Protein 108.39 mg/L (<8.01); EGFR African American 50.5 (>60); EGFR Non-African American 41.7 (>60); Magnesium 2.3 mg/dL (1.9-2.7); Potassium 3.7 mmol/L (3.5-5.0)
--- NOTE | 2019-06-29 08:24 | PN ---
Subjective - Subjective Reason for Note: Progress Note History: She developed pulmonary edema this morning. She was distressed and developed tachypnea. She is currently NPO due to swallowing evaluation and I started her on D51/2 NS at 50 mls per hour. I also started her yesterday on Zosyn and prednisone for a presumed lower respiratory tract infection. Active Problems: Active Problems Acute renal failure (Acute) Altered mental state (Acute) R41.82 Pt is even more confused and agitated today compared to yesterday at my visit. Cause of her confusion is not clear. There is no evidence of infection. CT brain negative for any acute findings. ? hospital acquired delirium in the setting of a person who at baseline is mild to moderately confused (per [facility] staff) vs related to EtOH withdrawl (seems unlikely as pt has no other signs of withdrawl) vs non convulsive status (also unlikely given how verbal and active she has been). I trialed seroquel 25mg last night and reportedly she had an ok night. Given the screaming and marked agitation at this time will give haldol 2mg IV x1 now to see if she will settle and be more appropriate with her care. CHF, acute (Acute) I50.9 Pt was felt to have acute diastolic CHF/flash pulmonary edema on presenation. She required BiPAP for acute hypoxic resp failure. This is now resolved. She is now on RA. Resume lasix and spironolactone- I doubt she will take her meds at this time. Coronary artery disease (Acute) I25.10 Hypokalemia (Acute) E87.6 Leukocytosis (Acute) D72.829 Lower respiratory tract infection (Acute) J22 Alcohol dependence (Chronic) F10.20 As pt is unable to tell me anything useful, it is unclear if she is still drinking. She does not appear to be withdrawling from EtOH. Anticoagulated (Chronic) Z79.01 Atrial fibrillation (Chronic) I48.91 Pt is in afib but controlled rate. Continue coreg and digoxin and coumadin. Recheck INR tomorrow. Pt refused labs this AM. COPD (chronic obstructive pulmonary disease) (Chronic) J44.9 No signs of exacerbation. Stop solumedrol. Monitor respiratory status. 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 Continue keppra and lamotrigine. Keppra level sent last night just prior to her receiving her evening dose. Current Medications: Current Medications Acetaminophen (Tylenol Tab*) 650 mg PO Q4H PRN PRN Reason: FEVER/PAIN Atorvastatin Calcium (Lipitor*) 40 mg PO 1700 [facility] Last Admin: 06/28/19 17:14 Dose: Not Given Digoxin (Lanoxin Tab*) 0.125 mg PO 1700 [facility] Last Admin: 06/28/19 17:14 Dose: Not Given Famotidine (Pepcid Iv*) 20 mg IV SLOW PU BID [facility] Last Admin: 06/28/19 21:23 Dose: 20 mg Furosemide (Lasix Iv*) 40 mg IV ONCE ONE Stop: 06/29/19 09:01 Haloperidol Lactate (Haldol Inj Iv/Im*) 2.5 mg IV SLOW PU Q12H PRN PRN Reason: AGITATION Last Admin: 06/28/19 20:58 Dose: 2.5 mg Hydralazine HCl (Apresoline Iv*) 5 mg IV SLOW PU Q4H PRN PRN Reason: SBP > 160 Last Admin: 06/28/19 19:46 Dose: 5 mg Thiamine HCl 200 mg/ Sodium (Chloride) 102 mls @ 204 mls/hr IV Q24H [facility] Stop: 07/02/19 11:59 Last Admin: 06/28/19 17:04 Dose: 204 mls/hr Levetiracetam 750 mg/ Sodium (Chloride) 107.5 mls @ 410 mls/hr IVPB Q12H [facility] Last Admin: 06/28/19 21:23 Dose: 410 mls/hr Potassium Chloride/Dextrose (D5w 1/2 Ns Kcl 20 Meq 1000 Ml*) 1,000 mls @ 50 mls /hr IV PER RATE [facility] Last Admin: 06/28/19 17:03 Dose: 50 mls/hr Piperacillin Sod/Tazobactam (Sod 3.375 gm/ Sodium Chloride) 100 mls @ 200 mls/ hr IVPB Q6H [facility] Last Admin: 06/29/19 03:51 Dose: 200 mls/hr Lamotrigine (Lamictal Tab(*)) 50 mg PO BID [facility] Last Admin: 06/28/19 20:40 Dose: Not Given Levalbuterol HCl (Xopenex 0.63mg/3ml Neb*) 0.31 mg INH Q6H PRN PRN Reason: SOB/WHEEZING Last Admin: 06/25/19 21:39 Dose: 0.63 mg Metoprolol Tartrate (Lopressor Iv*) 2.5 mg IV Q6H [facility] Last Admin: 06/29/19 03:51 Dose: 2.5 mg Pharmacy Consult (Zosyn Per Pharmacy*) 1 note FOLLOW UP .ZOSYN PER PHARMACY [facility] Pharmacy Profile Note (Coumadin Per Pharmacy*) 1 note FOLLOW UP .PER PHARMACY [facility]; Protocol Prednisone (Deltasone Tab*) 20 mg PO BID [facility] Last Admin: 06/28/19 20:40 Dose: Not Given Quetiapine Fumarate (Seroquel Tab*) 25 mg PO Q24H [facility] Last Admin: 06/28/19 20:40 Dose: Not Given Ramipril (Altace Cap*) 5 mg PO DAILY [facility] Last Admin: 06/28/19 13:00 Dose: Not Given Spironolactone (Aldactone Tab*) 12.5 mg PO DAILY [facility] Last Admin: 06/28/19 08:16 Dose: Not Given Home Medications: Home Medications Medication Instructions Recorded Confirmed Type Digoxin TAB* [Lanoxin TAB*] 0.125 mg PO DAILY 11/14/17 06/23/19 History levETIRAcetam TAB* [Keppra TAB*] 750 mg PO BID tab 11/16/17 06/23/19 Rx Atorvastatin* [Lipitor 20 MG*] 20 mg PO BEDTIME 12/01/18 06/23/19 History lamoTRIgine TAB(*) [Lamictal 100 mg PO BID 12/01/18 06/23/19 History TAB(*)] Carvedilol TAB* [Coreg TAB*] 3.125 mg PO BID #60 tab 06/19/19 06/23/19 Rx Furosemide TAB* [Lasix TAB*] 20 mg PO 0800 5 Days #30 tab 06/19/19 06/23/19 Rx Levalbuterol 0.63MG/3ML NEB* 0.31 mg INH Q6H PRN #30 neb.soln 06/19/19 06/23/19 Rx [Xopenex 0.63MG/3ML NEB*] Spironolactone TAB* [Aldactone TAB 12.5 mg PO DAILY #30 tab 06/19/19 06/23/19 Rx 25 MG*] predniSONE TAB* [Deltasone 20 MG 5 mg PO DAILY #10 tab 06/19/19 06/23/19 Rx TAB*] Cephalexin 500 mg PO QID 06/23/19 06/23/19 History Warfarin TAB(*) [Coumadin TAB(*)] 0.5 mg PO DAILY@1700 06/23/19 06/23/19 History Allergies: Allergies Allergy/AdvReac Type Severity Reaction Status Date / Time No Known Allergies Allergy Verified 06/23/19 04:24 Objective - Vital Signs Vital Signs: Vital Signs 06/28/19 06/28/19 06/28/19 12:39 15:03 19:10 Temperature 97.4 F 97.9 F Pulse Rate 80 99 Respiratory 20 20 20 Rate Blood Pressure 169/80 174/77 (mmHg) O2 Sat by Pulse 100 92 Oximetry 06/28/19 06/28/19 06/29/19 19:11 23:03 02:59 Temperature 98.4 F 97.4 F 98.1 F Pulse Rate 62 63 97 Respiratory 22 20 26 Rate Blood Pressure 172/92 133/107 180/92 (mmHg) O2 Sat by Pulse 96 95 92 Oximetry - Intake and Output Intake and Output: Intake & Output 06/26/19 06/27/19 06/28/19 06/29/19 11:59 11:59 11:59 11:59 Intake Total 800 370 716 290 Output Total 1476 2820 80 1100 Balance -769 -7507 164 -810 Weight 112 lb 10.499 oz 107 lb 5.842 oz 109 lb 107 lb Intake: IV Fluids 716 Keppra 716 IVPB 370 Keppra 110 NS (0.9%) 260 Oral 800 0 290 Output: Joya 1476 2820 80 1100 Other: Estimated Void Medium # Bowel Movements 1 1 Estimated Stool Amount Small Medium # Voids 3 ADLs: Meal Record Start: 06/23/19 11: 08 Freq: 09,13,18 Status: Complete Protocol: Created 06/23/19 11:08 System (Rec: 06/23/19 11:08 System [id number]) ADLs: Meal Record Start: 06/23/19 15: 24 Freq: Status: Active Protocol: Created 06/23/19 15:24 [id number] (Rec: 06/23/19 15:24 [id number] ICU-C25) Document 06/23/19 18:00 VSX0595 (Rec: 06/23/19 20:33 VKJ7929 TELE-C07) Document 06/24/19 09:00 OGI0920 (Rec: 06/24/19 10:22 PUL8572 TELE-C03) Document 06/24/19 18:00 IPT7182 (Rec: 06/24/19 18:15 PWF4805 TELE-C07) Document 06/25/19 08:58 DFY4159 (Rec: 06/25/19 08:59 HZN8086 TELE-M11) Document 06/25/19 13:57 JDR9585 (Rec: 06/25/19 13:59 HMG7646 TELE-M11) Document 06/25/19 18:00 ZTZ3009 (Rec: 06/25/19 22:40 JWZ7221 TELE-C05) Document 06/26/19 10:00 ZCX3075 (Rec: 06/26/19 11:06 QUU7859 ICU-C15) Document 06/26/19 18:00 SXX2537 (Rec: 06/26/19 18:05 TFD1155 ICU-L03) Document 06/28/19 11:23 QDC7526 (Rec: 06/28/19 11:23 FDO9462 TELE-M21) Document 06/28/19 13:25 ONN1347 (Rec: 06/28/19 13:25 WPA7246 TELE-M21) Document 06/28/19 21:48 QPN8302 (Rec: 06/28/19 21:48 DCC7430 TELE-C11) Document 06/29/19 04:22 EGO2310 (Rec: 06/29/19 04:23 XNY7339 TELE-M21) Document 06/29/19 05:29 (Rec: 06/29/19 05:29 TELE-M21) ADLs: Meal Record Start: 06/25/19 22: 26 Freq: Status: Complete Protocol: Created 06/25/19 22:26 RHD9078 (Rec: 06/25/19 22:26 YHS8256 ICU-C25) ADLs: Meal Record Start: 06/28/19 12: 17 Freq: Status: Cancelled Protocol: Created 06/28/19 12:17 TVU6045 (Rec: 06/28/19 12:17 RIH2595 TELE-M21) Intake and Output Start: 06/23/19 04: 23 Freq: Status: Inactive Protocol: Created 06/23/19 04:23 System (Rec: 06/23/19 04:23 System EDRM-C10) Intake and Output Start: 06/23/19 11: 08 Freq: Q1HR Status: Inactive Protocol: Created 06/23/19 11:08 System (Rec: 06/23/19 11:08 System PMRU-C05) Document 06/23/19 14:59 VQG2293 (Rec: 06/23/19 15:00 AFG1285 ICU-C25) Intake and Output Start: 06/23/19 15: 24 Freq: DAILY@0600,1400,2200 Status: Inactive Protocol: Document 06/23/19 12:00 [id number] (Rec: 06/23/19 15:26 [id number] ICU-C25) Created 06/23/19 15:24 FXO5847 (Rec: 06/23/19 15:24 WIT9421 ICU-C25) Document 06/23/19 21:29 MBZ4734 (Rec: 06/23/19 21:30 TZA3414 TELE-C07) Document 06/24/19 06:00 COV2626 (Rec: 06/24/19 06:06 AJB4859 TELE-C09) Document 06/24/19 22:00 EEP6985 (Rec: 06/24/19 22:36 EAA0099 TELE-C07) Document 06/25/19 05:51 PFH2872 (Rec: 06/25/19 05:52 CNZ3980 TELE-C07) Document 06/25/19 12:11 IDK0620 (Rec: 06/25/19 12:12 RTW6565 [facility]-M11) Intake and Output Start: 06/25/19 22: 26 Freq: Q1HR Status: Complete Protocol: Created 06/25/19 22:26 [id number] (Rec: 06/25/19 22:26 SSO3454 ICU-C25) Document 06/25/19 23:00 LAI9750 (Rec: 06/25/19 23:05 GCN7573 ICU-C25) Document 06/25/19 23:28 JDS9912 (Rec: 06/25/19 23:30 HRG9948 ICU-C16) Document 06/25/19 23:47 XKZ0835 (Rec: 06/25/19 23:47 LMH7620 ICU-C25) Document 06/26/19 01:00 YRU4792 (Rec: 06/26/19 02:24 KAU7850 ICU-C25) Document 06/26/19 02:00 EYN7102 (Rec: 06/26/19 02:24 ZHG8619 ICU-C25) Document 06/26/19 03:00 JZT9897 (Rec: 06/26/19 03:21 SAI9600 ICU-C25) Document 06/26/19 04:00 TNL7478 (Rec: 06/26/19 04:13 SLZ9426 ICU-C25) Document 06/26/19 05:00 OPR0110 (Rec: 06/26/19 05:01 FCS9188 ICU-C25) Document 06/26/19 06:00 SXX7225 (Rec: 06/26/19 06:05 PIA8282 ICU-C25) Document 06/26/19 07:00 GXT1772 (Rec: 06/26/19 07:58 LKP2830 ICU-C15) Document 06/26/19 07:58 TGA0027 (Rec: 06/26/19 07:58 YDX4400 ICU-C15) Document 06/26/19 09:00 XVM1811 (Rec: 06/26/19 09:41 QBN4800 ICU-C15) Document 06/26/19 10:00 NUC9642 (Rec: 06/26/19 11:07 KJK7318 ICU-C15) Document 06/26/19 11:00 QAZ2386 (Rec: 06/26/19 11:07 DRM5090 ICU-C15) Document 06/26/19 12:00 EEY2417 (Rec: 06/26/19 12:14 ZGF6929 ICU-C15) Document 06/26/19 13:00 GPJ6296 (Rec: 06/26/19 13:22 MJO3863 ICU-C15) Document 06/26/19 14:00 QGV2342 (Rec: 06/26/19 17:56 FMK0585 ICU-L03) Document 06/26/19 15:00 KKB4877 (Rec: 06/26/19 17:57 HCC1246 ICU-L03) Document 06/26/19 16:00 YQT5991 (Rec: 06/26/19 17:57 ZSS0350 ICU-L03) Document 06/26/19 17:00 EOT5698 (Rec: 06/26/19 17:57 MWJ3688 ICU-L03) Document 06/26/19 17:57 INM1476 (Rec: 06/26/19 17:57 WRS3524 ICU-L03) Document 06/26/19 19:00 ILY9294 (Rec: 06/26/19 19:08 FXK7368 ISDEMO-M03 ) Document 06/26/19 20:00 BMG4334 (Rec: 06/26/19 20:05 SSE9209 ICU-C15) Document 06/26/19 21:00 QYH1999 (Rec: 06/26/19 22:09 MPL1223 ISDEMO-M03 ) Document 06/26/19 22:00 AMZ0160 (Rec: 06/26/19 22:09 PJZ2113 ISDEMO-M03 ) Document 06/26/19 23:00 TZL6492 (Rec: 06/26/19 23:20 LOX6911 ICU-C15) Document 06/26/19 23:59 EKX7921 (Rec: 06/26/19 23:59 [id number] ICU-C15) Document 06/27/19 01:00 HNU5094 (Rec: 06/27/19 01:08 ALV2164 ICU-C15) Document 06/27/19 02:00 NON8572 (Rec: 06/27/19 02:03 AQL8106 ICU-C15) Document 06/27/19 03:00 MDQ7310 (Rec: 06/27/19 05:10 RZY8589 ICU-C15) Document 06/27/19 04:00 QZS4140 (Rec: 06/27/19 05:10 XPH0333 ICU-C15) Document 06/27/19 06:00 WCK6878 (Rec: 06/27/19 06:02 IGP9956 ICU-C15) Document 06/27/19 08:00 PDQ7079 (Rec: 06/27/19 08:07 QHS7949 ICU-C15) Document 06/27/19 09:31 MBL2225 (Rec: 06/27/19 09:31 VGE8966 ICU-C15) Document 06/27/19 11:00 OUT2088 (Rec: 06/27/19 11:10 FOD9175 ICU-C15) Document 06/27/19 13:45 BAW4825 (Rec: 06/27/19 13:56 SUI6642 ICU-C15) - Physical Exam General Physical Exam Comment: She remainsin a delirium. When roused she has tachypnea and uses accessory muscles of respiration. Lungs and Chest: Yes: Chest Expansion Symetrica, Crackles, Wheezes, Respiratory Distress, Use of Accessory Muscles. No: Chest Expansion Full, Percussion Note Resonant, Vessicular Breath Sounds Heart Rate and Rhythm: Irregular JVP: Elevated Additional Cardiovascular: Yes: Normal Heart Sounds, Heart Murmur. No: Pedal Edema Abdominal Exam: Yes: Soft, Bowel Sounds Present. No: Distention, Abdominal Tenderness Results - Results Lab Results: Laboratory Results - last 24 hr 06/28/19 06/28/19 06/28/19 08:13 08:13 08:13 WBC 11.7 H RBC 3.43 L Hgb 10.0 L Hct 31 L MCV 89 MCH 29 MCHC 33 RDW 23 H Plt Count 202 MPV 9.8 Neut % (Auto) Lymph % (Auto) Fisher % (Auto) Eos % (Auto) Baso % (Auto) Absolute Neuts (auto) Absolute Lymphs (auto) Absolute Monos (auto) Absolute Eos (auto) Absolute Basos (auto) Absolute Nucleated RBC Neutrophils % Lymphocytes % Monocytes % Eosinophils % Nucleated RBC % Normal RBC Morphology INR (Anticoag Therapy) 3.41 H Sodium 148 H Potassium 4.1 Chloride 111 Carbon Dioxide 23 Anion Gap 14 H BUN 31 H Creatinine 0.94 Est GFR ( Amer) 69.5 Est GFR (Non-Af Amer) 57.4 BUN/Creatinine Ratio 33.0 H Glucose 121 H Calcium 8.9 Magnesium 2.3 C-Reactive Protein 110.58 H 06/29/19 06/29/19 06/29/19 07:35 07:35 07:35 WBC 14.8 H RBC 3.51 L Hgb 10.3 L Hct 32 L MCV 90 MCH 29 MCHC 33 RDW 23 H Plt Count 194 MPV 10.1 Neut % (Auto) 79.6 Lymph % (Auto) 11.8 Fisher % (Auto) 6.5 Eos % (Auto) 1.5 Baso % (Auto) 0.6 Absolute Neuts (auto) 11.8 H Absolute Lymphs (auto) 1.7 Absolute Monos (auto) 1.0 H Absolute Eos (auto) 0.2 Absolute Basos (auto) 0.1 Absolute Nucleated RBC 0.0 Neutrophils % 77.0 Lymphocytes % 11.0 Monocytes % 10.0 Eosinophils % 2.0 Nucleated RBC % 0.1 Normal RBC Morphology Normal INR (Anticoag Therapy) 3.40 H Sodium 149 H Potassium 3.7 Chloride 115 H Carbon Dioxide 22 Anion Gap 12 H BUN 37 H Creatinine 1.24 H Est GFR ( Amer) 50.5 Est GFR (Non-Af Amer) 41.7 BUN/Creatinine Ratio 29.8 H Glucose 207 H Calcium 9.0 Magnesium 2.3 C-Reactive Protein 108.39 H Assessment - Problem List Assessment: Patient Problems Acute renal failure (Acute) Altered mental state (Acute) CHF, acute (Acute) Coronary artery disease (Acute) Hypokalemia (Acute) Leukocytosis (Acute) Lower respiratory tract infection (Acute) Alcohol dependence (Chronic) Anticoagulated (Chronic) Atrial fibrillation (Chronic) COPD (chronic obstructive pulmonary disease) (Chronic) DVT prophylaxis (Chronic) 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 I have given her furosemide 40 mg IV. In note zosyn contains saline Acute renal failure (Acute) Her BUN and Cr are a little higher this morning. She is npo and I have given her D5 1/2NS at 50 mls per hour. She is neither eating nor drinking Altered mental state (Acute) She continues to exhibit delirium that waxes and wanes (see Dr. Pandey's progress note). Coronary artery disease (Acute) She has some ischemia on her EKGs. Hypokalemia (Acute) resolved Leukocytosis (Acute) She received prednisone yesterday - but now she is completely NPO. Her CRP is stable Lower respiratory tract infection (Acute) I think this is an underlying problem. She received cephalexin after her discharge, however it looks like she has recurrence of a lung infection (assuming it is not from another undetermined site - no other physical signs/lab evidence of infections elsewhere. secondary diagnoses. 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 I explained the gravity of her current clinical condition. He is [facility] Patel's health care proxy and he agrees to a do not resuscitate order. I will treat with morphine for respiratory distress from acute dyspnea, but will continue with diuretic therapy and antibiotic therapy. She is not to be transferred to the ICU, nor to receive BIPAP/intubation per wishes of Kevin Patel
[2019-06-29] MEDS: lamoTRIgine TAB(*) 100 MG PO SCH ×2 (08:57→20:52)
[2019-06-29] MEDS: predniSONE TAB* 20 MG PO SCH ×2 (08:57→20:52)
[2019-06-29] MEDS: Ramipril CAP* 5 MG PO SCH (08:58)
[2019-06-29] MEDS: Spironolactone TAB* 25 MG PO SCH (08:58)
[2019-06-29] MEDS: Famotidine IV* 10 MG/ML 2 ML (20 mg) IV SLOW PU SCH ×2 (08:59→20:51)
[2019-06-29] MEDS ORDERED: Furosemide IV* 10 MG/ML VIAL (40 MG) IV ONE (09:00)
[2019-06-29] MEDS: Morphine INJ* 2 MG/ML 1 ML SYRINGE (TWO MG - NEW SYRINGE VERSION) IV PRN ×4 (09:22→22:51)
[2019-06-29] MEDS: levETIRAcetam IV* 750 MG in NS 0.9% 100 ML* 100 ML IVPB SCH ×2 (10:25→20:51)
[2019-06-29] MEDS: NS 0.9% IV SCH (12:36)
[2019-06-29] MEDS: THIAMINE IV SCH (12:36)
[2019-06-29] MEDS: Digoxin TAB* 0.125 MG PO SCH (16:39)
[2019-06-29] MEDS: Atorvastatin* 40 MG TAB PO SCH (16:39)
[2019-06-29] MEDS: QUEtiapine TAB* 25 MG PO SCH (20:52)
[2019-06-29] MEDS: Haloperidol INJ IV/IM* 5 MG/ML AMP IV SLOW PU PRN (21:21)
[2019-06-30] MEDS: Morphine INJ* 2 MG/ML 1 ML SYRINGE (TWO MG - NEW SYRINGE VERSION) IV PRN ×3 (01:15→12:14)
[2019-06-30] MEDS: Metoprolol Tartrate IV* 1 MG/ML 5 ML VIAL IV SCH ×4 (03:30→20:51)
[2019-06-30] MEDS: ZOSYN 3.375 GM Q8H per EXTENDED INFUSION IVPB SCH ×8 (03:30→22:34)
--- NOTE | 2019-06-30 08:12 | PN ---
Subjective - Subjective Reason for Note: Progress Note History: She is calmer this morning and is following one stage commands. She states she is in the hospital and is oriented to person, not time. She denies any pain or distress. She has tried climbing out of bed a couple of times. She denies dyspnea or chest pressure. Active Problems: Active Problems Acute renal failure (Acute) Altered mental state (Acute) R41.82 Pt is even more confused and agitated today compared to yesterday at my visit. Cause of her confusion is not clear. There is no evidence of infection. CT brain negative for any acute findings. ? hospital acquired delirium in the setting of a person who at baseline is mild to moderately confused (per [facility] staff) vs related to EtOH withdrawl (seems unlikely as pt has no other signs of withdrawl) vs non convulsive status (also unlikely given how verbal and active she has been). I trialed seroquel 25mg last night and reportedly she had an ok night. Given the screaming and marked agitation at this time will give haldol 2mg IV x1 now to see if she will settle and be more appropriate with her care. CHF, acute (Acute) I50.9 Pt was felt to have acute diastolic CHF/flash pulmonary edema on presenation. She required BiPAP for acute hypoxic resp failure. This is now resolved. She is now on RA. Resume lasix and spironolactone- I doubt she will take her meds at this time. Coronary artery disease (Acute) I25.10 Hypokalemia (Acute) E87.6 Leukocytosis (Acute) D72.829 Lower respiratory tract infection (Acute) J22 Alcohol dependence (Chronic) F10.20 As pt is unable to tell me anything useful, it is unclear if she is still drinking. She does not appear to be withdrawling from EtOH. Anticoagulated (Chronic) Z79.01 Atrial fibrillation (Chronic) I48.91 Pt is in afib but controlled rate. Continue coreg and digoxin and coumadin. Recheck INR tomorrow. Pt refused labs this AM. Bronchiectasis (Chronic) J47.9 COPD (chronic obstructive pulmonary disease) (Chronic) J44.9 No signs of exacerbation. Stop solumedrol. Monitor respiratory status. 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 Continue keppra and lamotrigine. Keppra level sent last night just prior to her receiving her evening dose. Current Medications: Current Medications Acetaminophen (Tylenol Tab*) 650 mg PO Q4H PRN PRN Reason: FEVER/PAIN Atorvastatin Calcium (Lipitor*) 40 mg PO 1700 [facility] Last Admin: 06/29/19 16:39 Dose: Not Given Digoxin (Lanoxin Tab*) 0.125 mg PO 1700 [facility] Last Admin: 06/29/19 16:39 Dose: Not Given Famotidine (Pepcid Iv*) 20 mg IV SLOW PU BID [facility] Last Admin: 06/29/19 20:51 Dose: 20 mg Haloperidol Lactate (Haldol Inj Iv/Im*) 2.5 mg IV SLOW PU Q12H PRN PRN Reason: AGITATION Last Admin: 06/29/19 21:21 Dose: 2.5 mg Hydralazine HCl (Apresoline Iv*) 5 mg IV SLOW PU Q4H PRN PRN Reason: SBP > 160 Last Admin: 06/28/19 19:46 Dose: 5 mg Thiamine HCl 200 mg/ Sodium (Chloride) 102 mls @ 204 mls/hr IV Q24H [facility] Stop: 07/02/19 11:59 Last Admin: 06/29/19 12:36 Dose: 204 mls/hr Levetiracetam 750 mg/ Sodium (Chloride) 107.5 mls @ 410 mls/hr IVPB Q12H [facility] Last Admin: 06/29/19 20:51 Dose: 410 mls/hr Piperacillin Sod/Tazobactam (Sod 3.375 gm/ Sodium Chloride) 100 mls @ 200 mls/ hr IVPB Q6H [facility] Last Admin: 06/30/19 03:30 Dose: 200 mls/hr Lamotrigine (Lamictal Tab(*)) 50 mg PO BID [facility] Last Admin: 06/29/19 20:52 Dose: Not Given Levalbuterol HCl (Xopenex 0.63mg/3ml Neb*) 0.31 mg INH Q6H PRN PRN Reason: SOB/WHEEZING Last Admin: 06/25/19 21:39 Dose: 0.63 mg Metoprolol Tartrate (Lopressor Iv*) 2.5 mg IV Q6H [facility] Last Admin: 06/30/19 03:30 Dose: 2.5 mg Morphine Sulfate (Morphine Inj (Syringe))*) 1 mg IV Q1H PRN PRN Reason: DISCOMFORT Last Admin: 06/30/19 04:46 Dose: 1 mg Pharmacy Consult (Zosyn Per Pharmacy*) 1 note FOLLOW UP .ZOSYN PER PHARMACY [facility] Pharmacy Profile Note (Coumadin Per Pharmacy*) 1 note FOLLOW UP .PER PHARMACY [facility]; Protocol Prednisone (Deltasone Tab*) 20 mg PO BID [facility] Last Admin: 06/29/19 20:52 Dose: Not Given Quetiapine Fumarate (Seroquel Tab*) 25 mg PO Q24H [facility] Last Admin: 06/29/19 20:52 Dose: Not Given Ramipril (Altace Cap*) 5 mg PO DAILY [facility] Last Admin: 06/29/19 08:58 Dose: Not Given Spironolactone (Aldactone Tab*) 12.5 mg PO DAILY [facility] Last Admin: 06/29/19 08:58 Dose: Not Given Home Medications: Home Medications Medication Instructions Recorded Confirmed Type Digoxin TAB* [Lanoxin TAB*] 0.125 mg PO DAILY 11/14/17 06/23/19 History levETIRAcetam TAB* [Keppra TAB*] 750 mg PO BID tab 11/16/17 06/23/19 Rx Atorvastatin* [Lipitor 20 MG*] 20 mg PO BEDTIME 12/01/18 06/23/19 History lamoTRIgine TAB(*) [Lamictal 100 mg PO BID 12/01/18 06/23/19 History TAB(*)] Carvedilol TAB* [Coreg TAB*] 3.125 mg PO BID #60 tab 06/19/19 06/23/19 Rx Furosemide TAB* [Lasix TAB*] 20 mg PO 0800 5 Days #30 tab 06/19/19 06/23/19 Rx Levalbuterol 0.63MG/3ML NEB* 0.31 mg INH Q6H PRN #30 neb.soln 06/19/19 06/23/19 Rx [Xopenex 0.63MG/3ML NEB*] Spironolactone TAB* [Aldactone TAB 12.5 mg PO DAILY #30 tab 06/19/19 06/23/19 Rx 25 MG*] predniSONE TAB* [Deltasone 20 MG 5 mg PO DAILY #10 tab 06/19/19 06/23/19 Rx TAB*] Cephalexin 500 mg PO QID 06/23/19 06/23/19 History Warfarin TAB(*) [Coumadin TAB(*)] 0.5 mg PO DAILY@1700 06/23/19 06/23/19 History Allergies: Allergies Allergy/AdvReac Type Severity Reaction Status Date / Time No Known Allergies Allergy Verified 06/23/19 04:24 Objective - Vital Signs Vital Signs: Vital Signs 06/29/19 06/29/19 06/29/19 08:00 09:22 10:48 Temperature Pulse Rate Respiratory 34 42 32 Rate Blood Pressure (mmHg) O2 Sat by Pulse Oximetry 06/29/19 06/29/19 06/29/19 11:25 14:00 15:22 Temperature 98.8 F Pulse Rate Respiratory 26 24 24 Rate Blood Pressure 144/71 (mmHg) O2 Sat by Pulse 99 Oximetry 06/29/19 06/29/19 06/29/19 17:35 19:17 19:20 Temperature 98.3 F Pulse Rate 89 Respiratory 34 20 20 Rate Blood Pressure 154/73 (mmHg) O2 Sat by Pulse 100 Oximetry 06/29/19 06/29/19 06/29/19 19:39 22:51 23:12 Temperature 98.3 F Pulse Rate 76 Respiratory 18 20 26 Rate Blood Pressure 147/78 (mmHg) O2 Sat by Pulse 96 Oximetry 06/30/19 06/30/19 06/30/19 01:11 01:15 02:43 Temperature Pulse Rate Respiratory 20 22 22 Rate Blood Pressure (mmHg) O2 Sat by Pulse Oximetry 06/30/19 06/30/19 06/30/19 03:25 04:46 07:08 Temperature 97.6 F Pulse Rate 79 Respiratory 16 20 20 Rate Blood Pressure 126/76 (mmHg) O2 Sat by Pulse 94 Oximetry - Intake and Output Intake and Output: Intake & Output 06/27/19 06/28/19 06/29/19 06/30/19 11:59 11:59 11:59 11:59 Intake Total 370 716 541 Output Total 2820 80 1100 1375 Balance -2450 636 -559 -1375 Weight 107 lb 5.842 oz 109 lb 107 lb 106 lb 3.2 oz Intake: IV Fluids 716 141 D5W 20meqK 141 Keppra 716 IVPB 370 110 Keppra 110 110 NS (0.9%) 260 Oral 0 290 Output: Joya 2820 80 1100 1375 Other: # Bowel Movements 1 Estimated Stool Amount Medium ADLs: Meal Record Start: 06/23/19 11: 08 Freq: 09,13,18 Status: Complete Protocol: Created 06/23/19 11:08 System (Rec: 06/23/19 11:08 System PM-C05) ADLs: Meal Record Start: 06/23/19 15: 24 Freq: Status: Active Protocol: Created 06/23/19 15:24 [id number] (Rec: 06/23/19 15:24 [id number] ICU-C25) Document 06/23/19 18:00 [id number] (Rec: 06/23/19 20:33 WYF7490 TELE-C07) Document 06/24/19 09:00 YJX7680 (Rec: 06/24/19 10:22 NVX2087 TELE-C03) Document 06/24/19 18:00 [id number] (Rec: 06/24/19 18:15 [id number] TELE-C07) Document 06/25/19 08:58 JHD3379 (Rec: 06/25/19 08:59 OVX7639 TELE-M11) Document 06/25/19 13:57 SWB2578 (Rec: 06/25/19 13:59 TYG2008 TELE-M11) Document 06/25/19 18:00 SZC4219 (Rec: 06/25/19 22:40 ANS5872 TELE-C05) Document 06/26/19 10:00 NUR0179 (Rec: 06/26/19 11:06 [id number] ICU-C15) Document 06/26/19 18:00 GQL9467 (Rec: 06/26/19 18:05 BWK2023 ICU-L03) Document 06/28/19 11:23 JNZ8207 (Rec: 06/28/19 11:23 IQK4291 TELE-M21) Document 06/28/19 13:25 YWG6296 (Rec: 06/28/19 13:25 UIS0310 TELE-M21) Document 06/28/19 21:48 XLL5747 (Rec: 06/28/19 21:48 FYW8049 TELE-C11) Document 06/29/19 04:22 WMH9521 (Rec: 06/29/19 04:23 GYF8104 TELE-M21) Document 06/29/19 05:29 KMU8218 (Rec: 06/29/19 05:29 JGQ9547 TELE-M21) ADLs: Meal Record Start: 06/25/19 22: 26 Freq: Status: Complete Protocol: Created 06/25/19 22:26 SAV2670 (Rec: 06/25/19 22:26 WXS1994 ICU-C25) ADLs: Meal Record Start: 06/28/19 12: 17 Freq: Status: Cancelled Protocol: Created 06/28/19 12:17 [id number] (Rec: 06/28/19 12:17 [id number] TELE-M21) Intake and Output Start: 06/23/19 04: 23 Freq: Status: Inactive Protocol: Created 06/23/19 04:23 System (Rec: 06/23/19 04:23 System EDRM-C10) Intake and Output Start: 06/23/19 11: 08 Freq: Q1HR Status: Inactive Protocol: Created 06/23/19 11:08 System (Rec: 06/23/19 11:08 System PMRU-C05) Document 06/23/19 14:59 [id number] (Rec: 06/23/19 15:00 VPT5704 ICU-C25) Intake and Output Start: 06/23/19 15: 24 Freq: DAILY@0600,1400,2200 Status: Inactive Protocol: Document 06/23/19 12:00 [id number] (Rec: 06/23/19 15:26 RLO4539 ICU-C25) Created 06/23/19 15:24 VCE5963 (Rec: 06/23/19 15:24 ASW6078 ICU-C25) Document 06/23/19 21:29 FES8903 (Rec: 06/23/19 21:30 KMK0067 TELE-C07) Document 06/24/19 06:00 UFD8560 (Rec: 06/24/19 06:06 JMF9249 TELE-C09) Document 06/24/19 22:00 POM2909 (Rec: 06/24/19 22:36 CUA0269 TELE-C07) Document 06/25/19 05:51 IEY6464 (Rec: 06/25/19 05:52 DFJ1364 TELE-C07) Document 06/25/19 12:11 NUX6684 (Rec: 06/25/19 12:12 ALX8685 TELE-M11) Intake and Output Start: 06/25/19 22: 26 Freq: Q1HR Status: Complete Protocol: Created 06/25/19 22:26 GCV5011 (Rec: 06/25/19 22:26 MOQ6116 ICU-C25) Document 06/25/19 23:00 NCL1789 (Rec: 06/25/19 23:05 JBH9485 ICU-C25) Document 06/25/19 23:28 FZL7081 (Rec: 06/25/19 23:30 OMM8642 ICU-C16) Document 06/25/19 23:47 DCN9359 (Rec: 06/25/19 23:47 WAV4768 ICU-C25) Document 06/26/19 01:00 KLS6550 (Rec: 06/26/19 02:24 SOP6057 ICU-C25) Document 06/26/19 02:00 TEZ0825 (Rec: 06/26/19 02:24 EUA5368 ICU-C25) Document 06/26/19 03:00 PEM9203 (Rec: 06/26/19 03:21 YFW3528 ICU-C25) Document 06/26/19 04:00 ZGP1615 (Rec: 06/26/19 04:13 PQO7336 ICU-C25) Document 06/26/19 05:00 UDL2208 (Rec: 06/26/19 05:01 [id number] ICU-C25) Document 06/26/19 06:00 UDD2650 (Rec: 06/26/19 06:05 HPT2486 ICU-C25) Document 06/26/19 07:00 ACX2163 (Rec: 06/26/19 07:58 PTN2382 ICU-C15) Document 06/26/19 07:58 [id number] (Rec: 06/26/19 07:58 OZN7424 ICU-C15) Document 06/26/19 09:00 BDL7573 (Rec: 06/26/19 09:41 PZV1967 ICU-C15) Document 06/26/19 10:00 MIS4983 (Rec: 06/26/19 11:07 BIM3099 ICU-C15) Document 06/26/19 11:00 SHT6828 (Rec: 06/26/19 11:07 PCR0021 ICU-C15) Document 06/26/19 12:00 GMB5801 (Rec: 06/26/19 12:14 PXZ4365 ICU-C15) Document 06/26/19 13:00 QXG7107 (Rec: 06/26/19 13:22 KTJ5976 ICU-C15) Document 06/26/19 14:00 SMJ5920 (Rec: 06/26/19 17:56 UCD9246 ICU-L03) Document 06/26/19 15:00 MQY5625 (Rec: 06/26/19 17:57 LKH9712 ICU-L03) Document 06/26/19 16:00 MQN3915 (Rec: 06/26/19 17:57 UXI5355 ICU-L03) Document 06/26/19 17:00 YYP8886 (Rec: 06/26/19 17:57 OLP0370 ICU-L03) Document 06/26/19 17:57 XGO9293 (Rec: 06/26/19 17:57 CWX7038 ICU-L03) Document 06/26/19 19:00 BMX2314 (Rec: 06/26/19 19:08 SZH1175 ISDEMO-M03 ) Document 06/26/19 20:00 HHC2062 (Rec: 06/26/19 20:05 RAU9974 ICU-C15) Document 06/26/19 21:00 PZY5485 (Rec: 06/26/19 22:09 XLV1149 ISDEMO-M03 ) Document 06/26/19 22:00 [id number] (Rec: 06/26/19 22:09 ASA0108 ISDEMO-M03 ) Document 06/26/19 23:00 UNJ4497 (Rec: 06/26/19 23:20 TIN8097 ICU-C15) Document 06/26/19 23:59 WYS0299 (Rec: 06/26/19 23:59 IOO0440 ICU-C15) Document 06/27/19 01:00 ZGJ4502 (Rec: 06/27/19 01:08 EEW8748 ICU-C15) Document 06/27/19 02:00 BAA2942 (Rec: 06/27/19 02:03 VHO9897 ICU-C15) Document 06/27/19 03:00 AKB1172 (Rec: 06/27/19 05:10 INN8301 ICU-C15) Document 06/27/19 04:00 TZY9134 (Rec: 06/27/19 05:10 VRD2189 ICU-C15) Document 06/27/19 06:00 KBM8468 (Rec: 06/27/19 06:02 MFL9011 ICU-C15) Document 06/27/19 08:00 IPK9062 (Rec: 06/27/19 08:07 TKV2526 ICU-C15) Document 06/27/19 09:31 ALN9837 (Rec: 06/27/19 09:31 [id number] ICU-C15) Document 06/27/19 11:00 ATX9508 (Rec: 06/27/19 11:10 JXA0479 ICU-C15) Document 06/27/19 13:45 MYB7470 (Rec: 06/27/19 13:56 [id number] ICU-C15) - Physical Exam General Physical Exam Comment: frail. She is calm, answers direct questions, but her attention drifts off rapidly General: No Cyanosis, No Anemia, No Jaundice, No Clubbing Lungs and Chest: Yes: Chest Expansion Full, Chest Expansion Symetrica, Crackles. No: Percussion Note Resonant - dull at bases, Vessicular Breath Sounds, Wheezes, Respiratory Distress, Use of Accessory Muscles Heart Rate and Rhythm: Irregular Additional Cardiovascular: Yes: Normal Heart Sounds, Heart Murmur - 3/6 jose systolic blowing murmur apex radiating to her axilla.. No: Carotid Bruits, Pedal Edema Abdominal Exam: Yes: Soft, Bowel Sounds Present. No: Distention, Abdominal Tenderness - Extremities Cranial Nerves II-XII Intact: Yes Limbs: Abnormal Power - weak generally. Can lift all limbs - Neuro Orientation: Person, Place Results - Results Lab Results: Laboratory Results - last 24 hr 06/29/19 06/29/19 07:35 07:35 WBC 14.8 H RBC 3.51 L Hgb 10.3 L Hct 32 L MCV 90 MCH 29 MCHC 33 RDW 23 H Plt Count 194 MPV 10.1 Neut % (Auto) 79.6 Lymph % (Auto) 11.8 [place] % (Auto) 6.5 Eos % (Auto) 1.5 Baso % (Auto) 0.6 Absolute Neuts (auto) 11.8 H Absolute Lymphs (auto) 1.7 Absolute Monos (auto) 1.0 H Absolute Eos (auto) 0.2 Absolute Basos (auto) 0.1 Absolute Nucleated RBC 0.0 Neutrophils % 77.0 Lymphocytes % 11.0 Monocytes % 10.0 Eosinophils % 2.0 Nucleated RBC % 0.1 Normal RBC Morphology Normal Sodium 149 H Potassium 3.7 Chloride 115 H Carbon Dioxide 22 Anion Gap 12 H BUN 37 H Creatinine 1.24 H Est GFR ( Amer) 50.5 Est GFR (Non-Af Amer) 41.7 BUN/Creatinine Ratio 29.8 H Glucose 207 H Calcium 9.0 Magnesium 2.3 C-Reactive Protein 108.39 H Assessment - Problem List Assessment: Patient Problems Acute renal failure (Acute) Altered mental state (Acute) CHF, acute (Acute) Coronary artery disease (Acute) Hypokalemia (Acute) Leukocytosis (Acute) Lower respiratory tract infection (Acute) Alcohol dependence (Chronic) Anticoagulated (Chronic) Atrial fibrillation (Chronic) Bronchiectasis (Chronic) COPD (chronic obstructive pulmonary disease) (Chronic) DVT prophylaxis (Chronic) 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 Lab work is not yet returned. I will recheck a CT scan of her chest as the right lower lobe bronchiectasis doesn't show well on the plain CXR. I suspect this is the nidus of infection. I am also concerned there may be an underlying malignancy here. Acute renal failure (Acute) Pending labs Altered mental state (Acute) She seems calmer and I am more able to direct her today. I am hoping she will be able to swallow her oral medications. 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 He continues to agree with this management plan
[2019-06-30] MEDS ORDERED: D5W 1/2 NS KCl 20 Meq 1000 ML* 1,000 ML IV SCH (09:00)
[2019-06-30] MEDS: Ramipril CAP* 5 MG PO SCH (09:47)
[2019-06-30] MEDS: Spironolactone TAB* 25 MG PO SCH (09:47)
[2019-06-30] MEDS: predniSONE TAB* 20 MG PO SCH ×2 (09:47→20:49)
[2019-06-30] MEDS: Famotidine IV* 10 MG/ML 2 ML (20 mg) IV SLOW PU SCH ×2 (09:51→20:51)
[2019-06-30] MEDS: lamoTRIgine TAB(*) 100 MG PO SCH ×2 (09:51→20:48)
[2019-06-30] MEDS: levETIRAcetam IV* 750 MG in NS 0.9% 100 ML* 100 ML IVPB SCH ×2 (11:14→20:53)
[2019-06-30] MEDS: NS 0.9% IV SCH (13:15)
[2019-06-30] MEDS: THIAMINE IV SCH (13:15)
[2019-06-30 14:25] LABS: ABS Basophils 0.1 10^3/ul (0-0.2); ABS Eosinophils 0.4 10^3/ul (0-0.6); ABS Lymphocytes 1.6 10^3/ul (1.0-4.8); ABS Monocytes 0.9 10^3/ul (0-0.8); ABS Neutrophils 9.6 10^3/ul (1.5-7.7); Eosinophil % 3.3 %; Hematocrit 31 % (35-47); Hemoglobin 10.3 g/dL (12.0-16.0); Lymphocyte % 12.4 %; Mean Corpuscular HGB Conc 33 g/dL (31-36); Mean Corpuscular Hemoglobin 30 pg (27-31); Mean Corpuscular Volume 90 fL (80-97); Mean Platelet Volume 9.6 fL (7.4-10.4); Nucleated Red Blood Cells % 0.1; Platelet Count 196 10^3/uL (150-450); Red Blood Count 3.47 10^6 /uL (3.70-4.87); Red Cell Distribution Width 23 % (10-15); White Blood Count 12.6 10^3/uL (3.5-10.8)
[2019-06-30 14:47] LABS: BUN/Creatinine Ratio 25.5 (8-20); C Reactive Protein 79.9 mg/L (<8.01); Calcium 8.5 mg/dL (8.6-10.3); EGFR Non-African American 37.2 (>60)
[2019-06-30 15:12] LABS: INR 3.25 (0.82-1.09)
[2019-06-30] MEDS ORDERED: D5W 1000 ML BAG* 1,000 ML IVPB ONE (16:00)
[2019-06-30] MEDS: Atorvastatin* 40 MG TAB PO SCH (16:23)
[2019-06-30] MEDS: Digoxin TAB* 0.125 MG PO SCH (16:24)
[2019-06-30] MEDS ORDERED: WARFARIN - No Order Today* 1 NOTE MISC FOLLOW UP ONE (17:00)
[2019-06-30] MEDS: QUEtiapine TAB* 25 MG PO SCH (20:49)
[2019-07-01] MEDS: Metoprolol Tartrate IV* 1 MG/ML 5 ML VIAL IV SCH ×4 (03:07→20:44)
[2019-07-01] MEDS: ZOSYN 3.375 GM Q8H per EXTENDED INFUSION IVPB SCH ×4 (03:08→10:38)
[2019-07-01 05:40] LABS: Hematocrit 29 % (35-47); Hemoglobin 9.4 g/dL (12.0-16.0); Mean Corpuscular HGB Conc 33 g/dL (31-36); Mean Corpuscular Hemoglobin 29 pg (27-31); Mean Corpuscular Volume 90 fL (80-97); Mean Platelet Volume 9.2 fL (7.4-10.4); Platelet Count 162 10^3/uL (150-450); Red Cell Distribution Width 23 % (10-15); White Blood Count 10.3 10^3/uL (3.5-10.8)
[2019-07-01 05:43] LABS: INR 3.93 (0.82-1.09)
[2019-07-01 06:21] LABS: Magnesium 2.1 mg/dL (1.9-2.7); Potassium 3.4 mmol/L (3.5-5.0)
[2019-07-01] MEDS: Morphine INJ* 2 MG/ML 1 ML SYRINGE (TWO MG - NEW SYRINGE VERSION) IV PRN ×2 (06:22→08:52)
[2019-07-01 06:27] LABS: C Reactive Protein 55.57 mg/L (<8.01); EGFR Non-African American 41.3 (>60)
[2019-07-01 06:33] LABS: ABS Basophils 0.1 10^3/ul (0-0.2); ABS Eosinophils 0.1 10^3/ul (0-0.6); ABS Lymphocytes 1.1 10^3/ul (1.0-4.8); ABS Monocytes 0.4 10^3/ul (0-0.8); ABS Neutrophils 8.6 10^3/ul (1.5-7.7); Eosinophil % 0.7 %; Nucleated Red Blood Cells % 0.2
[2019-07-01 06:35] LABS: Polychromasia 1+
[2019-07-01] MEDS: Famotidine IV* 10 MG/ML 2 ML (20 mg) IV SLOW PU SCH ×2 (08:52→20:44)
[2019-07-01] MEDS: Ramipril CAP* 5 MG PO SCH (08:53)
[2019-07-01] MEDS: predniSONE TAB* 20 MG PO SCH (08:53)
[2019-07-01] MEDS: lamoTRIgine TAB(*) 100 MG PO SCH ×2 (08:54→20:45)
[2019-07-01] MEDS: Spironolactone TAB* 25 MG PO SCH (08:55)
[2019-07-01] MEDS: levETIRAcetam IV* 750 MG in NS 0.9% 100 ML* 100 ML IVPB SCH ×2 (08:56→20:47)
[2019-07-01] MEDS ORDERED: WARFARIN - No Order Today* 1 NOTE MISC FOLLOW UP SCH (09:00)
--- NOTE | 2019-07-01 10:52 | PN ---
Subjective - Subjective Reason for Note: Progress Note History: She is acutely delirious this morning and fearful. We have just administered some more morphine. Her breathing is labored. She denies any pain, but she is disoriented. Active Problems: Active Problems Acute renal failure (Acute) Altered mental state (Acute) R41.82 Pt is even more confused and agitated today compared to yesterday at my visit. Cause of her confusion is not clear. There is no evidence of infection. CT brain negative for any acute findings. ? hospital acquired delirium in the setting of a person who at baseline is mild to moderately confused (per [facility] staff) vs related to EtOH withdrawl (seems unlikely as pt has no other signs of withdrawl) vs non convulsive status (also unlikely given how verbal and active she has been). I trialed seroquel 25mg last night and reportedly she had an ok night. Given the screaming and marked agitation at this time will give haldol 2mg IV x1 now to see if she will settle and be more appropriate with her care. CHF, acute (Acute) I50.9 Pt was felt to have acute diastolic CHF/flash pulmonary edema on presenation. She required BiPAP for acute hypoxic resp failure. This is now resolved. She is now on RA. Resume lasix and spironolactone- I doubt she will take her meds at this time. Coronary artery disease (Acute) I25.10 Hypernatremia (Acute) E87.0 Hypokalemia (Acute) E87.6 Leukocytosis (Acute) D72.829 Lower respiratory tract infection (Acute) J22 Alcohol dependence (Chronic) F10.20 As pt is unable to tell me anything useful, it is unclear if she is still drinking. She does not appear to be withdrawling from EtOH. Anticoagulated (Chronic) Z79.01 Atrial fibrillation (Chronic) I48.91 Pt is in afib but controlled rate. Continue coreg and digoxin and coumadin. Recheck INR tomorrow. Pt refused labs this AM. Bronchiectasis (Chronic) J47.9 COPD (chronic obstructive pulmonary disease) (Chronic) J44.9 No signs of exacerbation. Stop solumedrol. Monitor respiratory status. 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 Continue keppra and lamotrigine. Keppra level sent last night just prior to her receiving her evening dose. Current Medications: Current Medications Acetaminophen (Tylenol Tab*) 650 mg PO Q4H PRN PRN Reason: FEVER/PAIN Atorvastatin Calcium (Lipitor*) 40 mg PO 1700 [facility] Last Admin: 06/30/19 16:23 Dose: 40 mg Digoxin (Lanoxin Tab*) 0.125 mg PO 1700 [facility] Last Admin: 06/30/19 16:24 Dose: 0.125 mg Famotidine (Pepcid Iv*) 20 mg IV SLOW PU BID [facility] Last Admin: 07/01/19 08:52 Dose: 20 mg Haloperidol Lactate (Haldol Inj Iv/Im*) 2.5 mg IV SLOW PU Q12H PRN PRN Reason: AGITATION Last Admin: 06/29/19 21:21 Dose: 2.5 mg Hydralazine HCl (Apresoline Iv*) 5 mg IV SLOW PU Q4H PRN PRN Reason: SBP > 160 Last Admin: 06/28/19 19:46 Dose: 5 mg Thiamine HCl 200 mg/ Sodium (Chloride) 102 mls @ 204 mls/hr IV Q24H [facility] Stop: 07/02/19 11:59 Last Admin: 06/30/19 13:15 Dose: 204 mls/hr Levetiracetam 750 mg/ Sodium (Chloride) 107.5 mls @ 410 mls/hr IVPB Q12H [facility] Last Admin: 07/01/19 08:56 Dose: 410 mls/hr Piperacillin Sod/Tazobactam (Sod 3.375 gm/ Sodium Chloride) 100 mls @ 200 mls/ hr IVPB Q6H [facility] Last Admin: 07/01/19 03:08 Dose: 200 mls/hr Potassium Chloride/Dextrose (D5w 1/2 Ns Kcl 20 Meq 1000 Ml*) 1,000 mls @ 35 mls /hr IV PER RATE [facility] Dextrose (D5w 1000 Ml Bag*) 1,000 mls @ 50 mls/hr IVPB ONCE ONE Stop: 07/01/19 11:59 Last Admin: 06/30/19 15:51 Dose: 50 mls/hr Lamotrigine (Lamictal Tab(*)) 50 mg PO BID [facility] Last Admin: 07/01/19 08:54 Dose: 50 mg Levalbuterol HCl (Xopenex 0.63mg/3ml Neb*) 0.31 mg INH Q6H PRN PRN Reason: SOB/WHEEZING Last Admin: 06/25/19 21:39 Dose: 0.63 mg Metoprolol Tartrate (Lopressor Iv*) 2.5 mg IV Q6H [facility] Last Admin: 07/01/19 08:51 Dose: 2.5 mg Morphine Sulfate (Morphine Inj (Syringe))*) 1 mg IV Q1H PRN PRN Reason: DISCOMFORT Last Admin: 07/01/19 08:52 Dose: 1 mg Pharmacy Consult (Zosyn Per Pharmacy*) 1 note FOLLOW UP .ZOSYN PER PHARMACY [facility] Pharmacy Profile Note (Coumadin Per Pharmacy*) 1 note FOLLOW UP .PER PHARMACY [facility]; Protocol Pharmacy Profile Note (Coumadin No Order Today*) 1 note FOLLOW UP ONCE [facility] Stop: 07/01/19 23:59 Prednisone (Deltasone Tab*) 20 mg PO BID [facility] Last Admin: 07/01/19 08:53 Dose: 20 mg Quetiapine Fumarate (Seroquel Tab*) 25 mg PO Q24H [facility] Last Admin: 06/30/19 20:49 Dose: 25 mg Ramipril (Altace Cap*) 5 mg PO DAILY [facility] Last Admin: 07/01/19 08:53 Dose: 5 mg Spironolactone (Aldactone Tab*) 12.5 mg PO DAILY [facility] Last Admin: 07/01/19 08:55 Dose: 12.5 mg Home Medications: Home Medications Medication Instructions Recorded Confirmed Type Digoxin TAB* [Lanoxin TAB*] 0.125 mg PO DAILY 11/14/17 06/23/19 History levETIRAcetam TAB* [Keppra TAB*] 750 mg PO BID tab 11/16/17 06/23/19 Rx Atorvastatin* [Lipitor 20 MG*] 20 mg PO BEDTIME 12/01/18 06/23/19 History lamoTRIgine TAB(*) [Lamictal 100 mg PO BID 12/01/18 06/23/19 History TAB(*)] Carvedilol TAB* [Coreg TAB*] 3.125 mg PO BID #60 tab 06/19/19 06/23/19 Rx Furosemide TAB* [Lasix TAB*] 20 mg PO 0800 5 Days #30 tab 06/19/19 06/23/19 Rx Levalbuterol 0.63MG/3ML NEB* 0.31 mg INH Q6H PRN #30 neb.soln 06/19/19 06/23/19 Rx [Xopenex 0.63MG/3ML NEB*] Spironolactone TAB* [Aldactone TAB 12.5 mg PO DAILY #30 tab 06/19/19 06/23/19 Rx 25 MG*] predniSONE TAB* [Deltasone 20 MG 5 mg PO DAILY #10 tab 06/19/19 06/23/19 Rx TAB*] Cephalexin 500 mg PO QID 06/23/19 06/23/19 History Warfarin TAB(*) [Coumadin TAB(*)] 0.5 mg PO DAILY@1700 06/23/19 06/23/19 History Allergies: Allergies Allergy/AdvReac Type Severity Reaction Status Date / Time No Known Allergies Allergy Verified 06/23/19 04:24 Objective - Vital Signs Vital Signs: Vital Signs 06/30/19 06/30/19 06/30/19 12:14 13:31 15:00 Temperature 97.0 F Pulse Rate 92 Respiratory 24 24 18 Rate Blood Pressure 155/79 (mmHg) O2 Sat by Pulse 95 Oximetry 06/30/19 06/30/19 06/30/19 16:24 19:00 20:00 Temperature 97.9 F Pulse Rate 80 99 Respiratory 16 18 Rate Blood Pressure 147/64 (mmHg) O2 Sat by Pulse 94 Oximetry 06/30/19 07/01/19 07/01/19 23:00 03:00 06:22 Temperature 97.5 F 97.3 F Pulse Rate 70 69 Respiratory 20 18 22 Rate Blood Pressure 129/66 138/73 (mmHg) O2 Sat by Pulse 100 100 Oximetry 07/01/19 07/01/19 07/01/19 07:30 07:45 08:52 Temperature 97.4 F Pulse Rate 106 Respiratory 22 19 24 Rate Blood Pressure 135/95 (mmHg) O2 Sat by Pulse 95 Oximetry - Intake and Output Intake and Output: Intake & Output 06/28/19 06/29/19 06/30/19 07/01/19 11:59 11:59 11:59 11:59 Intake Total 716 541 739 Output Total 80 1100 1375 800 Balance 636 -559 -1375 -61 Weight 109 lb 107 lb 106 lb 3.2 oz 105 lb Intake: IV Fluids 716 141 399 D5W 399 D5W 20meqK 141 Keppra 716 IVPB 110 220 Keppra 110 110 Thiamine 110 Oral 0 290 120 Output: Joya 80 1100 1375 800 Other: # Bowel Movements 1 Estimated Stool Amount Medium ADLs: Meal Record Start: 06/23/19 11: 08 Freq: ,,18 Status: Complete Protocol: Created 06/23/19 11:08 System (Rec: 06/23/19 11:08 System [facility]-C05) ADLs: Meal Record Start: 06/23/19 15: 24 Freq: Status: Active Protocol: Created 06/23/19 15:24 [id number] (Rec: 06/23/19 15:24 [id number] ICU-C25) Document 06/23/19 18:00 HPI0146 (Rec: 06/23/19 20:33 FYC4373 TELE-C07) Document 06/24/19 09:00 ADS1834 (Rec: 06/24/19 10:22 UIM8050 TELE-C03) Document 06/24/19 18:00 TLR0231 (Rec: 06/24/19 18:15 PTF7859 TELE-C07) Document 06/25/19 08:58 TEH4261 (Rec: 06/25/19 08:59 JYZ0664 TELE-M11) Document 06/25/19 13:57 ZBM9090 (Rec: 06/25/19 13:59 TTH3529 TELE-M11) Document 06/25/19 18:00 HFT2202 (Rec: 06/25/19 22:40 DIB1923 TELE-C05) Document 06/26/19 10:00 IUL4155 (Rec: 06/26/19 11:06 VCH7745 ICU-C15) Document 06/26/19 18:00 HGL0100 (Rec: 06/26/19 18:05 BCP0129 ICU-L03) Document 06/28/19 11:23 RDY0102 (Rec: 06/28/19 11:23 MBX8084 TELE-M21) Document 06/28/19 13:25 IKX8191 (Rec: 06/28/19 13:25 TEA9087 TELE-M21) Document 06/28/19 21:48 HNZ1928 (Rec: 06/28/19 21:48 MLV5025 TELE-C11) Document 06/29/19 04:22 WJF3976 (Rec: 06/29/19 04:23 AOE1741 TELE-M21) Document 06/29/19 05:29 CWY1279 (Rec: 06/29/19 05:29 CYX2274 TELE-M21) Document 06/30/19 18:13 PVA5648 (Rec: 06/30/19 18:13 UDT2549 TELE-M21) Document 07/01/19 09:50 PXE4318 (Rec: 07/01/19 09:50 MPA7764 TELE-M21) ADLs: Meal Record Start: 06/25/19 22: 26 Freq: Status: Complete Protocol: Created 06/25/19 22:26 [id number] (Rec: 06/25/19 22:26 MOW4144 ICU-C25) ADLs: Meal Record Start: 06/28/19 12: 17 Freq: Status: Cancelled Protocol: Created 06/28/19 12:17 OXD2627 (Rec: 06/28/19 12:17 GKS6267 TELE-M21) Intake and Output Start: 06/23/19 04: 23 Freq: Status: Inactive Protocol: Created 06/23/19 04:23 System (Rec: 06/23/19 04:23 System EDRM-C10) Intake and Output Start: 06/23/19 11: 08 Freq: Q1HR Status: Inactive Protocol: Created 06/23/19 11:08 System (Rec: 06/23/19 11:08 System PMRU-C05) Document 06/23/19 14:59 HMC5541 (Rec: 06/23/19 15:00 IAF3398 ICU-C25) Intake and Output Start: 06/23/19 15: 24 Freq: DAILY@0600,1400,2200 Status: Inactive Protocol: Document 06/23/19 12:00 CNS3520 (Rec: 06/23/19 15:26 RUL9759 ICU-C25) Created 06/23/19 15:24 BEZ0427 (Rec: 06/23/19 15:24 OOT8015 ICU-C25) Document 06/23/19 21:29 TQW7756 (Rec: 06/23/19 21:30 LYW8662 TELE-C07) Document 06/24/19 06:00 EJZ0536 (Rec: 06/24/19 06:06 ZZQ3850 TELE-C09) Document 06/24/19 22:00 WGC9043 (Rec: 06/24/19 22:36 VTO3417 TELE-C07) Document 06/25/19 05:51 QWR7964 (Rec: 06/25/19 05:52 HBL9354 TELE-C07) Document 06/25/19 12:11 ITA2709 (Rec: 06/25/19 12:12 FEQ0226 TELE-M11) Intake and Output Start: 06/25/19 22: 26 Freq: Q1HR Status: Complete Protocol: Created 06/25/19 22:26 LOC5035 (Rec: 06/25/19 22:26 WBS3677 ICU-C25) Document 06/25/19 23:00 HQP9177 (Rec: 06/25/19 23:05 TAG6826 ICU-C25) Document 06/25/19 23:28 MAE6736 (Rec: 06/25/19 23:30 LTC5515 ICU-C16) Document 06/25/19 23:47 EBQ8967 (Rec: 06/25/19 23:47 LEL7530 ICU-C25) Document 06/26/19 01:00 QPG7372 (Rec: 06/26/19 02:24 RYH6093 ICU-C25) Document 06/26/19 02:00 LMQ9006 (Rec: 06/26/19 02:24 KVI4025 ICU-C25) Document 06/26/19 03:00 VIF8381 (Rec: 06/26/19 03:21 AOM7431 ICU-C25) Document 06/26/19 04:00 VUJ5891 (Rec: 06/26/19 04:13 EVZ3173 ICU-C25) Document 06/26/19 05:00 HNW9347 (Rec: 06/26/19 05:01 QQA3049 ICU-C25) Document 06/26/19 06:00 YCQ3790 (Rec: 06/26/19 06:05 ZNV8418 ICU-C25) Document 06/26/19 07:00 QZB9716 (Rec: 06/26/19 07:58 NCP3495 ICU-C15) Document 06/26/19 07:58 ZOO2305 (Rec: 06/26/19 07:58 NPU3629 ICU-C15) Document 06/26/19 09:00 YHD5745 (Rec: 06/26/19 09:41 JZU8989 ICU-C15) Document 06/26/19 10:00 YKK1253 (Rec: 06/26/19 11:07 [id number] ICU-C15) Document 06/26/19 11:00 YKR6279 (Rec: 06/26/19 11:07 EFR1156 ICU-C15) Document 06/26/19 12:00 CLH5668 (Rec: 06/26/19 12:14 IRD7666 ICU-C15) Document 06/26/19 13:00 QNJ9985 (Rec: 06/26/19 13:22 ONX4940 ICU-C15) Document 06/26/19 14:00 MZG0329 (Rec: 06/26/19 17:56 NOV3221 ICU-L03) Document 06/26/19 15:00 WXA3456 (Rec: 06/26/19 17:57 PAM9791 ICU-L03) Document 06/26/19 16:00 OOZ1173 (Rec: 06/26/19 17:57 QSD6263 ICU-L03) Document 06/26/19 17:00 BFQ7568 (Rec: 06/26/19 17:57 UNO8359 ICU-L03) Document 06/26/19 17:57 XHN1462 (Rec: 06/26/19 17:57 RIB3791 ICU-L03) Document 06/26/19 19:00 SJW5643 (Rec: 06/26/19 19:08 OIX6939 ISDEMO-M03 ) Document 06/26/19 20:00 EPP1221 (Rec: 06/26/19 20:05 VDW5793 ICU-C15) Document 06/26/19 21:00 RXG4500 (Rec: 06/26/19 22:09 DIU2444 ISDEMO-M03 ) Document 06/26/19 22:00 IWV5409 (Rec: 06/26/19 22:09 VAU3023 ISDEMO-M03 ) Document 06/26/19 23:00 HIY9533 (Rec: 06/26/19 23:20 NLC1987 ICU-C15) Document 06/26/19 23:59 HJO1381 (Rec: 06/26/19 23:59 OKF4266 ICU-C15) Document 06/27/19 01:00 ZZK9526 (Rec: 06/27/19 01:08 TTR1772 ICU-C15) Document 06/27/19 02:00 TEP6953 (Rec: 06/27/19 02:03 NQF5172 ICU-C15) Document 06/27/19 03:00 VQD4971 (Rec: 06/27/19 05:10 WKC0100 ICU-C15) Document 06/27/19 04:00 TNF9994 (Rec: 06/27/19 05:10 VNB7459 ICU-C15) Document 06/27/19 06:00 CQD2306 (Rec: 06/27/19 06:02 CLH8916 ICU-C15) Document 06/27/19 08:00 TGN3354 (Rec: 06/27/19 08:07 CKB3284 ICU-C15) Document 06/27/19 09:31 CGT5928 (Rec: 06/27/19 09:31 LPF7407 ICU-C15) Document 06/27/19 11:00 YFZ7541 (Rec: 06/27/19 11:10 ADI5594 ICU-C15) Document 06/27/19 13:45 VWY4701 (Rec: 06/27/19 13:56 VQG3426 ICU-C15) - Physical Exam General Physical Exam Comment: she recognizes me, but is unable too express herself clearly. She took her pills with apple sauce, but has not eaten or drunk anything. She is hydrated. General: No Cyanosis, No Anemia, No Jaundice, No Clubbing Lungs and Chest: Yes: Chest Expansion Full, Chest Expansion Symetrica, Crackles , Wheezes, Respiratory Distress, Use of Accessory Muscles. No: Percussion Note Resonant, Vessicular Breath Sounds Heart Rate and Rhythm: Irregular Additional Cardiovascular: Yes: Heart Murmur. No: Normal Heart Sounds, Pedal Edema Abdominal Exam: Yes: Soft, Bowel Sounds Present. No: Distention, Abdominal Tenderness Results - Results Lab Results: Laboratory Results - last 24 hr 06/30/19 06/30/19 06/30/19 13:45 13:45 13:45 WBC 12.6 H RBC 3.47 L Hgb 10.3 L Hct 31 L MCV 90 MCH 30 MCHC 33 RDW 23 H Plt Count 196 MPV 9.6 Neut % (Auto) 76.6 Lymph % (Auto) 12.4 Sandoval % (Auto) 7.1 Eos % (Auto) 3.3 Baso % (Auto) 0.6 Absolute Neuts (auto) 9.6 H Absolute Lymphs (auto) 1.6 Absolute Monos (auto) 0.9 H Absolute Eos (auto) 0.4 Absolute Basos (auto) 0.1 Absolute Nucleated RBC 0.0 Neutrophils % Lymphocytes % Monocytes % Nucleated RBC % 0.1 Normal RBC Morphology Polychromasia Basophilic Stippling INR (Anticoag Therapy) 3.25 H Sodium 156 H* Potassium 3.0 L Chloride 116 H Carbon Dioxide 27 Anion Gap 13 H BUN 35 H Creatinine 1.37 H Est GFR ( Amer) 45.0 Est GFR (Non-Af Amer) 37.2 BUN/Creatinine Ratio 25.5 H Glucose 132 H Calcium 8.5 L Magnesium 2.0 C-Reactive Protein 79.90 H 07/01/19 07/01/19 07/01/19 05:31 05:31 05:31 WBC 10.3 RBC 3.20 L Hgb 9.4 L Hct 29 L MCV 90 MCH 29 MCHC 33 RDW 23 H Plt Count 162 MPV 9.2 Neut % (Auto) 83.6 Lymph % (Auto) 11.0 Sandoval % (Auto) 4.1 Eos % (Auto) 0.7 Baso % (Auto) 0.6 Absolute Neuts (auto) 8.6 H Absolute Lymphs (auto) 1.1 Absolute Monos (auto) 0.4 Absolute Eos (auto) 0.1 Absolute Basos (auto) 0.1 Absolute Nucleated RBC 0.0 Neutrophils % 82.0 Lymphocytes % 12.0 Monocytes % 6.0 Nucleated RBC % 0.2 Normal RBC Morphology Not Reportable Polychromasia 1+ Basophilic Stippling 1+ INR (Anticoag Therapy) 3.93 H Sodium 154 H Potassium 3.4 L Chloride 120 H Carbon Dioxide 26 Anion Gap 8 BUN 35 H Creatinine 1.25 H Est GFR ( Amer) 50.0 Est GFR (Non-Af Amer) 41.3 BUN/Creatinine Ratio 28.0 H Glucose 161 H Calcium 8.0 L Magnesium 2.1 C-Reactive Protein 55.57 H Assessment - Problem List Assessment: Patient Problems Acute renal failure (Acute) Altered mental state (Acute) CHF, acute (Acute) Coronary artery disease (Acute) Hypernatremia (Acute) Hypokalemia (Acute) Leukocytosis (Acute) Lower respiratory tract infection (Acute) Alcohol dependence (Chronic) Anticoagulated (Chronic) Atrial fibrillation (Chronic) Bronchiectasis (Chronic) COPD (chronic obstructive pulmonary disease) (Chronic) DVT prophylaxis (Chronic) 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 However, her respiratory distress continues. I will check a CXR today (portable). I have stopped the zosyn in view of the salt content. I am forced to give her cefepime and clindamyicn as metronidazole has more salt than zosyn. Acute renal failure (Acute) Her BUN and creatinine are a little improved. Hypokalemia (Acute) Hypernatremia (Acute) I have been giving her some dextrose water IV as well as 1/2 NS. I am concerned that the Zosyn contains salt. She is not eating or drinking reliably. I think she is getting enough volume - her kidneys appear improved. I think the anerobic coverage may be important. Altered mental state (Acute) Today she is more delirious today - I am not sure why. CHF, acute (Acute) I think she has capillary fragility in her lungs that makes her more susceptible to this. I am trying to keep her sufficiently dry for her lungs and wet for her kidneys Coronary artery disease (Acute) stable. 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 I am going to reduce her overall salt intake and ensure she has adequate hydration.
[2019-07-01] MEDS ORDERED: D5W 1/2 NS KCl 20 Meq 1000 ML* 1,000 ML IV SCH (11:00)
[2019-07-01] MEDS ORDERED: D5W 500 ML BAG* 500 ML IV SCH (11:00)
[2019-07-01] MEDS: NS 0.9% IV SCH (12:57)
[2019-07-01] MEDS: THIAMINE IV SCH (12:57)
[2019-07-01] MEDS ORDERED: POTASSIUM CHLORIDE TPN IVPB ONE ×3 (14:00)
[2019-07-01] MEDS ORDERED: D5W IVPB ONE ×3 (14:00)
[2019-07-01] MEDS: Digoxin TAB* 0.125 MG PO SCH ×2 (16:59→17:55)
[2019-07-01] MEDS: Atorvastatin* 40 MG TAB PO SCH (16:59)
[2019-07-01] MEDS: Cefepime 1 GM in Dextrose(*) 1 GM/50 ML q12h (Duplex) IV SCH (17:00)
[2019-07-01] MEDS: Clindamycin 600 MG IVPREMIX(* 600 MG/50 ML SDV IV SCH ×2 (17:51→23:25)
[2019-07-01] MEDS: DIGOXIN PO SCH (17:55)
[2019-07-01] MEDS: ORALSYR PO SCH (17:55)
[2019-07-01] MEDS ORDERED: NS 0.9% 100 ML* 100 ML ONE (20:38)
[2019-07-01] MEDS: QUEtiapine TAB* 25 MG PO SCH (20:45)
[2019-07-01] MEDS: Haloperidol INJ IV/IM* 5 MG/ML AMP IV SLOW PU PRN (23:20)
[2019-07-02] MEDS: Morphine INJ* 2 MG/ML 1 ML SYRINGE (TWO MG - NEW SYRINGE VERSION) IV PRN (00:12)
[2019-07-02] MEDS: Cefepime 1 GM in Dextrose(*) 1 GM/50 ML q12h (Duplex) IV SCH ×3 (04:28→20:05)
[2019-07-02] MEDS: Metoprolol Tartrate IV* 1 MG/ML 5 ML VIAL IV SCH ×4 (04:29→21:00)
[2019-07-02] MEDS: Clindamycin 600 MG IVPREMIX(* 600 MG/50 ML SDV IV SCH ×2 (08:08→21:46)
[2019-07-02 09:37] LABS: ABS Basophils 0.1 10^3/ul (0-0.2); ABS Eosinophils 0.9 10^3/ul (0-0.6); ABS Lymphocytes 1.2 10^3/ul (1.0-4.8); ABS Monocytes 1.1 10^3/ul (0-0.8); ABS Neutrophils 13.7 10^3/ul (1.5-7.7); Eosinophil % 5.3 %; Hematocrit 33 % (35-47); Hemoglobin 10.4 g/dL (12.0-16.0); Mean Corpuscular HGB Conc 32 g/dL (31-36); Mean Corpuscular Hemoglobin 29 pg (27-31); Mean Corpuscular Volume 91 fL (80-97); Mean Platelet Volume 8.9 fL (7.4-10.4); Nucleated Red Blood Cells % 0.2; Platelet Count 183 10^3/uL (150-450); Red Cell Distribution Width 24 % (10-15); White Blood Count 16.9 10^3/uL (3.5-10.8)
[2019-07-02] MEDS: Famotidine IV* 10 MG/ML 2 ML (20 mg) IV SLOW PU SCH ×2 (09:39→20:59)
[2019-07-02] MEDS: Ramipril CAP* 5 MG PO SCH (09:39)
[2019-07-02] MEDS: levETIRAcetam IV* 750 MG in NS 0.9% 100 ML* 100 ML IVPB SCH ×2 (09:40→21:00)
[2019-07-02] MEDS: predniSONE TAB* 20 MG PO SCH (09:40)
[2019-07-02] MEDS: Spironolactone TAB* 25 MG PO SCH (09:40)
[2019-07-02] MEDS: lamoTRIgine TAB(*) 100 MG PO SCH ×2 (09:40→21:00)
[2019-07-02 09:50] LABS: BUN/Creatinine Ratio 28.1 (8-20); C Reactive Protein 35.7 mg/L (<8.01); Calcium 8.3 mg/dL (8.6-10.3); EGFR African American 45.8 (>60); EGFR Non-African American 37.8 (>60); Potassium 2.9 mmol/L (3.5-5.0)
[2019-07-02 10:15] LABS: INR 5.77 (0.82-1.09)
[2019-07-02] MEDS ORDERED: WARFARIN - No Order Today* 1 NOTE MISC FOLLOW UP ONE (12:00)
[2019-07-02] MEDS: KCL 20 MEQ/100 ML IVPREMIX* 20 MEQ/100 ML BAG IV SCH ×3 (13:00→17:32)
[2019-07-02] MEDS ORDERED: D5W 1000 ML BAG* 1,000 ML IV SCH (13:00)
[2019-07-02] MEDS: DIGOXIN PO SCH (17:32)
[2019-07-02] MEDS: ORALSYR PO SCH (17:32)
[2019-07-02] MEDS: Atorvastatin* 40 MG TAB PO SCH (17:32)
[2019-07-02] MEDS: QUEtiapine TAB* 25 MG PO SCH (21:00)
[2019-07-02 21:52] LABS: CO2 Carbon Dioxide 23 mmol/L (22-32); Calcium 7.7 mg/dL (8.6-10.3)
[2019-07-02 21:53] LABS: Sodium 150 mmol/L (135-145)
[2019-07-02 21:58] LABS: BUN/Creatinine Ratio 29.8 (8-20); Blood Urea Nitrogen 39 mg/dL (6-24); EGFR African American 47.4 (>60); EGFR Non-African American 39.2 (>60); Glucose 165 mg/dL (70-100); Phosphorus 2.4 mg/dL (2.5-5.0)
[2019-07-02 21:59] LABS: Anion Gap 10 mmol/L (2-11); Chloride 117 mmol/L (101-111)
[2019-07-03] MEDS: Metoprolol Tartrate IV* 1 MG/ML 5 ML VIAL IV SCH ×4 (03:39→21:57)
[2019-07-03] MEDS: Clindamycin 600 MG IVPREMIX(* 600 MG/50 ML SDV IV SCH ×2 (05:26→14:43)
--- NOTE | 2019-07-03 07:30 | PN ---
Subjective - Subjective Reason for Note: Progress Note History: Abeba Patel continues to have a difficult hospital course. She continues to have delirium, which fluctuates. Her right IV infiltrated. She had hypokalemia requiring IV runs of potassium chloride. Most importantly, she had an episode of acute respiratory distress overnight and her IVF was cut back. This morning she is drowsy, but arousable. She used my name, but most of her words I couldn't understand. She was calm, but was not following one step commands, she is unable to give an account of herself. She denies pain on direct questioning. According to her RN she was able to eat scrambled eggs and b'fast yesterday and some soft pudding later. She took her oral medications. Active Problems: Active Problems Acute renal failure (Acute) Altered mental state (Acute) R41.82 Pt is even more confused and agitated today compared to yesterday at my visit. Cause of her confusion is not clear. There is no evidence of infection. CT brain negative for any acute findings. ? hospital acquired delirium in the setting of a person who at baseline is mild to moderately confused (per [facility] staff) vs related to EtOH withdrawl (seems unlikely as pt has no other signs of withdrawl) vs non convulsive status (also unlikely given how verbal and active she has been). I trialed seroquel 25mg last night and reportedly she had an ok night. Given the screaming and marked agitation at this time will give haldol 2mg IV x1 now to see if she will settle and be more appropriate with her care. CHF, acute (Acute) I50.9 Pt was felt to have acute diastolic CHF/flash pulmonary edema on presenation. She required BiPAP for acute hypoxic resp failure. This is now resolved. She is now on RA. Resume lasix and spironolactone- I doubt she will take her meds at this time. Coronary artery disease (Acute) I25.10 Hypernatremia (Acute) E87.0 Hypokalemia (Acute) E87.6 Leukocytosis (Acute) D72.829 Lower respiratory tract infection (Acute) J22 Pulmonary edema (Acute) J81.1 Alcohol dependence (Chronic) F10.20 As pt is unable to tell me anything useful, it is unclear if she is still drinking. She does not appear to be withdrawling from EtOH. Anticoagulated (Chronic) Z79.01 Atrial fibrillation (Chronic) I48.91 Pt is in afib but controlled rate. Continue coreg and digoxin and coumadin. Recheck INR tomorrow. Pt refused labs this AM. Bronchiectasis (Chronic) J47.9 COPD (chronic obstructive pulmonary disease) (Chronic) J44.9 No signs of exacerbation. Stop solumedrol. Monitor respiratory status. 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 Continue keppra and lamotrigine. Keppra level sent last night just prior to her receiving her evening dose. Current Medications: Current Medications Acetaminophen (Tylenol Tab*) 650 mg PO Q4H PRN PRN Reason: FEVER/PAIN Atorvastatin Calcium (Lipitor*) 40 mg PO 1700 [facility] Last Admin: 07/02/19 17:32 Dose: 40 mg Digoxin (Lanoxin Liq* Oralsyr) 0.125 mg PO 1700 [facility] Last Admin: 07/02/19 17:32 Dose: 0.125 mg Famotidine (Pepcid Iv*) 20 mg IV SLOW PU BID [facility] Last Admin: 07/02/19 20:59 Dose: 20 mg Haloperidol Lactate (Haldol Inj Iv/Im*) 2.5 mg IV SLOW PU Q12H PRN PRN Reason: AGITATION Last Admin: 07/01/19 23:20 Dose: 2.5 mg Hydralazine HCl (Apresoline Iv*) 5 mg IV SLOW PU Q4H PRN PRN Reason: SBP > 160 Last Admin: 06/28/19 19:46 Dose: 5 mg Levetiracetam 750 mg/ Sodium (Chloride) 107.5 mls @ 410 mls/hr IVPB Q12H [facility] Last Admin: 07/02/19 21:00 Dose: 410 mls/hr Cefepime HCl (Maxipime 1 Gm In Dextrose Duplex (*)) 1 gm in 50 mls @ 100 mls/ hr IV 0830,2030 [facility] Last Admin: 07/02/19 20:05 Dose: 100 mls/hr Clindamycin HCl/Dextrose (Cleocin 600 Mg Ivpremix(*) Sdv) 600 mg in 50 mls @ 100 mls/hr IV 0530,1330,2130 [facility] Last Admin: 07/03/19 05:26 Dose: 100 mls/hr Lamotrigine (Lamictal Tab(*)) 50 mg PO BID [facility] Last Admin: 07/02/19 21:00 Dose: 50 mg Levalbuterol HCl (Xopenex 0.63mg/3ml Neb*) 0.31 mg INH Q6H PRN PRN Reason: SOB/WHEEZING Last Admin: 06/25/19 21:39 Dose: 0.63 mg Metoprolol Tartrate (Lopressor Iv*) 2.5 mg IV Q6H [facility] Last Admin: 07/03/19 03:39 Dose: 2.5 mg Morphine Sulfate (Morphine Inj (Syringe))*) 1 mg IV Q1H PRN PRN Reason: DISCOMFORT Last Admin: 07/02/19 00:12 Dose: 1 mg Pharmacy Profile Note (Coumadin Per Pharmacy*) 1 note FOLLOW UP .PER PHARMACY PROTOC [facility]; Protocol Prednisone (Deltasone Tab*) 20 mg PO DAILY [facility] Last Admin: 07/02/19 09:40 Dose: 20 mg Quetiapine Fumarate (Seroquel Tab*) 25 mg PO Q24H [facility] Last Admin: 07/02/19 21:00 Dose: 25 mg Ramipril (Altace Cap*) 5 mg PO DAILY [facility] Last Admin: 07/02/19 09:39 Dose: 5 mg Spironolactone (Aldactone Tab*) 12.5 mg PO DAILY [facility] Last Admin: 07/02/19 09:40 Dose: 12.5 mg Home Medications: Home Medications Medication Instructions Recorded Confirmed Type Digoxin TAB* [Lanoxin TAB*] 0.125 mg PO DAILY 11/14/17 06/23/19 History levETIRAcetam TAB* [Keppra TAB*] 750 mg PO BID tab 11/16/17 06/23/19 Rx Atorvastatin* [Lipitor 20 MG*] 20 mg PO BEDTIME 12/01/18 06/23/19 History lamoTRIgine TAB(*) [Lamictal 100 mg PO BID 12/01/18 06/23/19 History TAB(*)] Carvedilol TAB* [Coreg TAB*] 3.125 mg PO BID #60 tab 06/19/19 06/23/19 Rx Furosemide TAB* [Lasix TAB*] 20 mg PO 0800 5 Days #30 tab 06/19/19 06/23/19 Rx Levalbuterol 0.63MG/3ML NEB* 0.31 mg INH Q6H PRN #30 neb.soln 06/19/19 06/23/19 Rx [Xopenex 0.63MG/3ML NEB*] Spironolactone TAB* [Aldactone TAB 12.5 mg PO DAILY #30 tab 06/19/19 06/23/19 Rx 25 MG*] predniSONE TAB* [Deltasone 20 MG 5 mg PO DAILY #10 tab 06/19/19 06/23/19 Rx TAB*] Cephalexin 500 mg PO QID 06/23/19 06/23/19 History Warfarin TAB(*) [Coumadin TAB(*)] 0.5 mg PO DAILY@1700 06/23/19 06/23/19 History Allergies: Allergies Allergy/AdvReac Type Severity Reaction Status Date / Time No Known Allergies Allergy Verified 06/23/19 04:24 Objective - Vital Signs Vital Signs: Vital Signs 07/02/19 07/02/19 07/02/19 08:00 08:55 11:10 Temperature 98.5 F 97.4 F Pulse Rate 76 65 Respiratory 18 18 20 Rate Blood Pressure 129/66 131/60 (mmHg) O2 Sat by Pulse 95 92 Oximetry 07/02/19 07/02/19 07/02/19 15:30 19:25 20:09 Temperature 98.9 F 97.7 F Pulse Rate 83 72 Respiratory 18 18 18 Rate Blood Pressure 105/54 151/77 (mmHg) O2 Sat by Pulse 97 91 Oximetry 07/02/19 07/03/19 23:41 03:20 Temperature 97.4 F 97.6 F Pulse Rate 80 91 Respiratory 22 24 Rate Blood Pressure 121/73 129/110 (mmHg) O2 Sat by Pulse 93 92 Oximetry - Intake and Output Intake and Output: Intake & Output 06/30/19 07/01/19 07/02/19 07/03/19 11:59 11:59 11:59 11:59 Intake Total 739 1231 1775 Output Total 8486 770 1092 900 Balance -1375 -61 131 875 Weight 106 lb 3.2 oz 105 lb 104 lb 9.6 oz Intake: IV Fluids 966 121 7016 D5W 399 381 970 D5W 1/2 NS 20 meq KCL 377 D5W 20meqK 350 Keppra 100 IVPB 220 350 210 ABX - CEFEPIME 50 56 ABX - CLINDAMYCIN 54 ABX - ZOSYN 100 Keppra 110 100 100 Thiamine 110 100 Oral 120 50 218 Output: Joya 0024 233 7113 900 Other: Estimated Void Medium ADLs: Meal Record Start: 06/23/19 11: 08 Freq: 09,13,18 Status: Complete Protocol: Created 06/23/19 11:08 System (Rec: 06/23/19 11:08 System [facility]-C05) ADLs: Meal Record Start: 06/23/19 15: 24 Freq: DAILY@0900,1400,1800 Status: Active Protocol: Created 06/23/19 15:24 [id number] (Rec: 06/23/19 15:24 EWT3210 ICU-C25) Document 06/23/19 18:00 MET3609 (Rec: 06/23/19 20:33 MJQ7091 TELE-C07) Document 06/24/19 09:00 MTJ2032 (Rec: 06/24/19 10:22 BXI3424 TELE-C03) Document 06/24/19 18:00 QKX1162 (Rec: 06/24/19 18:15 RIT3647 TELE-C07) Document 06/25/19 08:58 OXE6534 (Rec: 06/25/19 08:59 ESR0037 TELE-M11) Document 06/25/19 13:57 BWH2303 (Rec: 06/25/19 13:59 KFH8822 TELE-M11) Document 06/25/19 18:00 GDA2423 (Rec: 06/25/19 22:40 CCI6654 TELE-C05) Document 06/26/19 10:00 ASE6374 (Rec: 06/26/19 11:06 LCS9603 ICU-C15) Document 06/26/19 18:00 KJW8457 (Rec: 06/26/19 18:05 ZDW3219 ICU-L03) Document 06/28/19 11:23 ROX5845 (Rec: 06/28/19 11:23 ZSM6815 TELE-M21) Document 06/28/19 13:25 RKK9014 (Rec: 06/28/19 13:25 MLQ3820 TELE-M21) Document 06/28/19 21:48 OKF8880 (Rec: 06/28/19 21:48 LGS5297 TELE-C11) Document 06/29/19 04:22 CCY3576 (Rec: 06/29/19 04:23 YCP4159 TELE-M21) Document 06/29/19 05:29 PMM2316 (Rec: 06/29/19 05:29 IQC1220 TELE-M21) Document 06/30/19 18:13 HET4398 (Rec: 06/30/19 18:13 FPT0125 TELE-M21) Document 07/01/19 09:50 RAQ2044 (Rec: 07/01/19 09:50 GXZ8670 TELE-M21) Document 07/01/19 13:21 MLF5670 (Rec: 07/01/19 13:21 ZPP8631 TELE-M21) Document 07/01/19 19:39 BGB5862 (Rec: 07/01/19 19:39 DIM9578 TELE-M21) Document 07/02/19 14:00 JVV0408 (Rec: 07/02/19 14:47 HSO4698 TELE-C05) Document 07/02/19 18:00 JSY0027 (Rec: 07/02/19 18:28 BQF0965 TELE-M21) ADLs: Meal Record Start: 06/25/19 22: 26 Freq: Status: Complete Protocol: Created 06/25/19 22:26 KNO1704 (Rec: 06/25/19 22:26 WCL1054 ICU-C25) ADLs: Meal Record Start: 06/28/19 12: 17 Freq: Status: Cancelled Protocol: Created 06/28/19 12:17 WUO2710 (Rec: 06/28/19 12:17 LSW3187 TELE-M21) Intake and Output Start: 06/23/19 04: 23 Freq: Status: Inactive Protocol: Created 06/23/19 04:23 System (Rec: 06/23/19 04:23 System EDRM-C10) Intake and Output Start: 06/23/19 11: 08 Freq: Q1HR Status: Inactive Protocol: Created 06/23/19 11:08 System (Rec: 06/23/19 11:08 System PMRU-C05) Document 06/23/19 14:59 VCU3137 (Rec: 06/23/19 15:00 JBQ9297 ICU-C25) Intake and Output Start: 06/23/19 15: 24 Freq: DAILY@0600,1400,2200 Status: Inactive Protocol: Document 06/23/19 12:00 CXZ1550 (Rec: 06/23/19 15:26 MDS8134 ICU-C25) Created 06/23/19 15:24 ZZD0418 (Rec: 06/23/19 15:24 BCW7166 ICU-C25) Document 06/23/19 21:29 ZCJ3970 (Rec: 06/23/19 21:30 OLN4977 TELE-C07) Document 06/24/19 06:00 VTU4508 (Rec: 06/24/19 06:06 JMI4300 TELE-C09) Document 06/24/19 22:00 SUW0543 (Rec: 06/24/19 22:36 BYV9382 TELE-C07) Document 06/25/19 05:51 IAE0146 (Rec: 06/25/19 05:52 XWU7775 TELE-C07) Document 06/25/19 12:11 URU4748 (Rec: 06/25/19 12:12 IDX3351 TELE-M11) Intake and Output Start: 06/25/19 22: 26 Freq: 06,14,2200 Status: Active Protocol: Created 06/25/19 22:26 KQH5705 (Rec: 06/25/19 22:26 YKK2956 ICU-C25) Document 06/25/19 23:00 GBY9361 (Rec: 06/25/19 23:05 QBX0637 ICU-C25) Document 06/25/19 23:28 LZQ8583 (Rec: 06/25/19 23:30 UBM4851 ICU-C16) Document 06/25/19 23:47 WUN9929 (Rec: 06/25/19 23:47 GZT2866 ICU-C25) Document 06/26/19 01:00 XLZ0622 (Rec: 06/26/19 02:24 CTV6650 ICU-C25) Document 06/26/19 02:00 NPE4512 (Rec: 06/26/19 02:24 DIQ1164 ICU-C25) Document 06/26/19 03:00 FHE6448 (Rec: 06/26/19 03:21 LZM4549 ICU-C25) Document 06/26/19 04:00 AHS6833 (Rec: 06/26/19 04:13 AVV1072 ICU-C25) Document 06/26/19 05:00 UIC2077 (Rec: 06/26/19 05:01 AJD7727 ICU-C25) Document 06/26/19 06:00 MPP9770 (Rec: 06/26/19 06:05 MFI0222 ICU-C25) Document 06/26/19 07:00 UZH5835 (Rec: 06/26/19 07:58 PCL1526 ICU-C15) Document 06/26/19 07:58 TAV2771 (Rec: 06/26/19 07:58 TQJ9947 ICU-C15) Document 06/26/19 09:00 KNK9717 (Rec: 06/26/19 09:41 URQ9387 ICU-C15) Document 06/26/19 10:00 YEK0927 (Rec: 06/26/19 11:07 CBO6352 ICU-C15) Document 06/26/19 11:00 GKL5255 (Rec: 06/26/19 11:07 MXP1218 ICU-C15) Document 06/26/19 12:00 GGG2229 (Rec: 06/26/19 12:14 TCJ4544 ICU-C15) Document 06/26/19 13:00 KMM9735 (Rec: 06/26/19 13:22 FYJ9609 ICU-C15) Document 06/26/19 14:00 ORX1939 (Rec: 06/26/19 17:56 GHF2413 ICU-L03) Document 06/26/19 15:00 CON3301 (Rec: 06/26/19 17:57 FHT3475 ICU-L03) Document 06/26/19 16:00 WPM3410 (Rec: 06/26/19 17:57 TAM0732 ICU-L03) Document 06/26/19 17:00 GLK1866 (Rec: 06/26/19 17:57 CFV3702 ICU-L03) Document 06/26/19 17:57 ZQA7912 (Rec: 06/26/19 17:57 ZTG4736 ICU-L03) Document 06/26/19 19:00 NMT6696 (Rec: 06/26/19 19:08 OUE9381 ISDEMO-M03 ) Document 06/26/19 20:00 YZE2983 (Rec: 06/26/19 20:05 BZK7470 ICU-C15) Document 06/26/19 21:00 TFC9777 (Rec: 06/26/19 22:09 GSJ8844 ISDEMO-M03 ) Document 06/26/19 22:00 ZCH9821 (Rec: 06/26/19 22:09 RYW9658 ISDEMO-M03 ) Document 06/26/19 23:00 HIC7191 (Rec: 06/26/19 23:20 ADW7475 ICU-C15) Document 06/26/19 23:59 AUJ9237 (Rec: 06/26/19 23:59 BGI5506 ICU-C15) Document 06/27/19 01:00 CQX5706 (Rec: 06/27/19 01:08 KNB9820 ICU-C15) Document 06/27/19 02:00 KJB6367 (Rec: 06/27/19 02:03 FNE4568 ICU-C15) Document 06/27/19 03:00 LFO6610 (Rec: 06/27/19 05:10 JQD1879 ICU-C15) Document 06/27/19 04:00 FAU1523 (Rec: 06/27/19 05:10 AWF3781 ICU-C15) Document 06/27/19 06:00 PPG8017 (Rec: 06/27/19 06:02 VLI3994 ICU-C15) Document 06/27/19 08:00 ZOU8966 (Rec: 06/27/19 08:07 QSJ4540 ICU-C15) Document 06/27/19 09:31 QOT8088 (Rec: 06/27/19 09:31 QIB3843 ICU-C15) Document 06/27/19 11:00 EXE1677 (Rec: 06/27/19 11:10 EFV9709 ICU-C15) Document 06/27/19 13:45 DJF4987 (Rec: 06/27/19 13:56 PIU2681 ICU-C15) Document 07/02/19 07:36 CRI4199 (Rec: 07/02/19 07:36 DRF3327 TELE-M20) Document 07/02/19 14:00 JHK3758 (Rec: 07/02/19 14:47 ZJF8156 TELE-C05) Document 07/02/19 15:34 RZB0411 (Rec: 07/02/19 15:34 XDF3846 TELE-M20) Document 07/02/19 21:53 EKK1062 (Rec: 07/02/19 21:53 SVJ2843 TELE-M21) - Physical Exam General Physical Exam Comment: Frail and ill. General: No Cyanosis, Yes Anemia, No Jaundice, No Clubbing Lungs and Chest: Yes: Chest Expansion Full, Chest Expansion Symetrica, Vessicular Breath Sounds, Crackles, Respiratory Distress. No: Wheezes, Use of Accessory Muscles Heart Rate and Rhythm: Irregular JVP: Elevated - V waves Additional Cardiovascular: Yes: Heart Murmur - 3/6 PSM at apex radiating to her axilla. No: Normal Heart Sounds, Pedal Edema Abdominal Exam: Yes: Soft, Bowel Sounds Present. No: Distention, Abdominal Tenderness Results - Results Lab Results: Laboratory Results - last 24 hr 07/02/19 07/02/19 07/02/19 09:10 09:10 09:10 WBC 16.9 H RBC 3.60 L Hgb 10.4 L Hct 33 L MCV 91 MCH 29 MCHC 32 RDW 24 H Plt Count 183 MPV 8.9 Neut % (Auto) 80.9 Lymph % (Auto) 7.0 [place] % (Auto) 6.3 Eos % (Auto) 5.3 Baso % (Auto) 0.5 Absolute Neuts (auto) 13.7 H Absolute Lymphs (auto) 1.2 Absolute Monos (auto) 1.1 H Absolute Eos (auto) 0.9 H Absolute Basos (auto) 0.1 Absolute Nucleated RBC 0.0 Nucleated RBC % 0.2 INR (Anticoag Therapy) 5.77 H* Sodium 153 H Potassium 2.9 L Chloride 117 H Carbon Dioxide 27 Anion Gap 9 BUN 38 H Creatinine 1.35 H Est GFR ( Amer) 45.8 Est GFR (Non-Af Amer) 37.8 BUN/Creatinine Ratio 28.1 H Glucose 147 H Calcium 8.3 L Phosphorus C-Reactive Protein 35.70 H B-Natriuretic Peptide 07/02/19 07/02/19 09:10 20:40 WBC RBC Hgb Hct MCV MCH MCHC RDW Plt Count MPV Neut % (Auto) Lymph % (Auto) [place] % (Auto) Eos % (Auto) Baso % (Auto) Absolute Neuts (auto) Absolute Lymphs (auto) Absolute Monos (auto) Absolute Eos (auto) Absolute Basos (auto) Absolute Nucleated RBC Nucleated RBC % INR (Anticoag Therapy) Sodium 150 H Potassium TNP Chloride 117 H Carbon Dioxide 23 Anion Gap 10 BUN 39 H Creatinine 1.31 H Est GFR ( Amer) 47.4 Est GFR (Non-Af Amer) 39.2 BUN/Creatinine Ratio 29.8 H Glucose 165 H Calcium 7.7 L Phosphorus 2.4 L C-Reactive Protein B-Natriuretic Peptide 436 H Radiology Results: Poor air entry compared to prior X-ray, marked interstitial opacities - right middle lobe, left upper lobe. Marked cardiomegaly. 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 Her CXR shows interstitial changes right mid/ upper lobe and left upper lobe. Cardiomegaly obscures her bases. 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 I think her infection is likely coming under control, but the residual damage is causing her respiratory difficulties. We are treating her conservatively. Acute renal failure (Acute) This has remained fairly constant Hypernatremia (Acute)Hypokalemia (Acute) She received potassium yesterday. I will give her some spironolactone Altered mental state (Acute) This remains a problem. It appears most like delirium/encephalopathy. 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 I explained the possibility of ARDS. He understands.
[2019-07-03] MEDS: levETIRAcetam IV* 750 MG in NS 0.9% 100 ML* 100 ML IVPB SCH ×2 (10:22→21:57)
[2019-07-03] MEDS: Famotidine IV* 10 MG/ML 2 ML (20 mg) IV SLOW PU SCH ×2 (10:29→21:57)
[2019-07-03] MEDS: lamoTRIgine TAB(*) 100 MG PO SCH ×2 (10:30→21:50)
[2019-07-03] MEDS: Spironolactone TAB* 25 MG PO SCH (10:30)
[2019-07-03] MEDS: Ramipril CAP* 5 MG PO SCH (10:30)
[2019-07-03] MEDS: predniSONE TAB* 20 MG PO SCH (10:30)
[2019-07-03] MEDS: Cefepime 1 GM in Dextrose(*) 1 GM/50 ML q12h (Duplex) IV SCH (10:41)
[2019-07-03 16:06] LABS: Albumin 2.9 g/dL (3.2-5.2); Albumin/Globulin Ratio 1.1 (1-3); BUN/Creatinine Ratio 31.2 (8-20); C Reactive Protein 61.94 mg/L (<8.01); Calcium 7.8 mg/dL (8.6-10.3); EGFR African American 58.6 (>60); EGFR Non-African American 48.4 (>60); Globulin 2.7 g/dL (2-4); Magnesium 1.9 mg/dL (1.9-2.7); Potassium 3.6 mmol/L (3.5-5.0); Total Bilirubin 3.6 mg/dL (0.2-1.0); Total Protein 5.6 g/dL (6.4-8.9)
[2019-07-03] MEDS ORDERED: Piperacillin/Tazobac ADVAN(*) 3.375 GM in NS 0.9% 100 ML* 100 ML IVPB ONE (16:10)
[2019-07-03 16:33] LABS: INR 7.48 (0.82-1.09)
[2019-07-03] MEDS ORDERED: Zosyn per Pharmacy* NOTE FOLLOW UP SCH (17:00)
[2019-07-03] MEDS: Atorvastatin* 40 MG TAB PO SCH (18:02)
[2019-07-03] MEDS: ORALSYR PO SCH (18:02)
[2019-07-03] MEDS: DIGOXIN PO SCH (18:02)
[2019-07-03] MEDS: ZOSYN 3.375 GM Q8H per EXTENDED INFUSION IVPB SCH ×2 (22:57)
[2019-07-04] MEDS ORDERED: Furosemide IV* 10 MG/ML 2 ML VIAL (20 MG) IV ONE (02:13)
[2019-07-04] MEDS: Morphine INJ* 2 MG/ML 1 ML SYRINGE (TWO MG - NEW SYRINGE VERSION) IV PRN (02:21)
[2019-07-04] MEDS: Metoprolol Tartrate IV* 1 MG/ML 5 ML VIAL IV SCH ×4 (02:30→21:00)
[2019-07-04] MEDS: ZOSYN 3.375 GM Q8H per EXTENDED INFUSION IVPB SCH ×6 (05:40→22:46)
[2019-07-04] MEDS: Haloperidol INJ IV/IM* 5 MG/ML AMP IV SLOW PU PRN ×2 (06:31→16:30)
--- NOTE | 2019-07-04 07:50 | PN ---
Subjective - Subjective Reason for Note: Progress Note History: She continues to have altered mental state - however she is conscious. Her lungs remain a problem - we have had to increase her fI02 to 3 liters. We kept her dry yesterday. Her CRP increased and hence I changed her back to piperacillin/tazobactam, despite the salt load, as I presumed cefepime + clindamycin were not providing the same coverage. She continues to put out urine. Active Problems: Active Problems Acute renal failure (Acute) Altered mental state (Acute) R41.82 Pt is even more confused and agitated today compared to yesterday at my visit. Cause of her confusion is not clear. There is no evidence of infection. CT brain negative for any acute findings. ? hospital acquired delirium in the setting of a person who at baseline is mild to moderately confused (per [facility] staff) vs related to EtOH withdrawl (seems unlikely as pt has no other signs of withdrawl) vs non convulsive status (also unlikely given how verbal and active she has been). I trialed seroquel 25mg last night and reportedly she had an ok night. Given the screaming and marked agitation at this time will give haldol 2mg IV x1 now to see if she will settle and be more appropriate with her care. CHF, acute (Acute) I50.9 Pt was felt to have acute diastolic CHF/flash pulmonary edema on presenation. She required BiPAP for acute hypoxic resp failure. This is now resolved. She is now on RA. Resume lasix and spironolactone- I doubt she will take her meds at this time. Coronary artery disease (Acute) I25.10 Hypernatremia (Acute) E87.0 Hypokalemia (Acute) E87.6 Leukocytosis (Acute) D72.829 Lower respiratory tract infection (Acute) J22 Pulmonary edema (Acute) J81.1 Alcohol dependence (Chronic) F10.20 As pt is unable to tell me anything useful, it is unclear if she is still drinking. She does not appear to be withdrawling from EtOH. Anticoagulated (Chronic) Z79.01 Atrial fibrillation (Chronic) I48.91 Pt is in afib but controlled rate. Continue coreg and digoxin and coumadin. Recheck INR tomorrow. Pt refused labs this AM. Bronchiectasis (Chronic) J47.9 COPD (chronic obstructive pulmonary disease) (Chronic) J44.9 No signs of exacerbation. Stop solumedrol. Monitor respiratory status. 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 Continue keppra and lamotrigine. Keppra level sent last night just prior to her receiving her evening dose. Current Medications: Current Medications Acetaminophen (Tylenol Tab*) 650 mg PO Q4H PRN PRN Reason: FEVER/PAIN Atorvastatin Calcium (Lipitor*) 40 mg PO 1700 [facility] Last Admin: 07/03/19 18:02 Dose: 40 mg Digoxin (Lanoxin Liq* Oralsyr) 0.125 mg PO 1700 [facility] Last Admin: 07/03/19 18:02 Dose: 0.125 mg Famotidine (Pepcid Iv*) 20 mg IV SLOW PU BID [facility] Last Admin: 07/03/19 21:57 Dose: 20 mg Haloperidol Lactate (Haldol Inj Iv/Im*) 2.5 mg IV SLOW PU Q12H PRN PRN Reason: AGITATION Last Admin: 07/04/19 06:31 Dose: 2.5 mg Hydralazine HCl (Apresoline Iv*) 5 mg IV SLOW PU Q4H PRN PRN Reason: SBP > 160 Last Admin: 06/28/19 19:46 Dose: 5 mg Levetiracetam 750 mg/ Sodium (Chloride) 107.5 mls @ 410 mls/hr IVPB Q12H [facility] Last Admin: 07/03/19 21:57 Dose: 410 mls/hr Piperacillin Sod/Tazobactam (Sod 3.375 gm/ Sodium Chloride) 100 mls @ 25 mls/ hr IVPB Q8H [facility] Last Admin: 07/04/19 05:40 Dose: 25 mls/hr Lamotrigine (Lamictal Tab(*)) 50 mg PO BID [facility] Last Admin: 07/03/19 21:50 Dose: 50 mg Levalbuterol HCl (Xopenex 0.63mg/3ml Neb*) 0.31 mg INH Q6H PRN PRN Reason: SOB/WHEEZING Last Admin: 06/25/19 21:39 Dose: 0.63 mg Metoprolol Tartrate (Lopressor Iv*) 2.5 mg IV Q6H [facility] Last Admin: 07/04/19 02:30 Dose: 2.5 mg Morphine Sulfate (Morphine Inj (Syringe))*) 1 mg IV Q1H PRN PRN Reason: DISCOMFORT Last Admin: 07/04/19 02:21 Dose: 1 mg Pharmacy Consult (Zosyn Per Pharmacy*) 1 note FOLLOW UP .ZOSYN PER PHARMACY [facility] Pharmacy Profile Note (Coumadin Per Pharmacy*) 1 note FOLLOW UP .PER PHARMACY [facility]; Protocol Prednisone (Deltasone Tab*) 20 mg PO DAILY [facility] Last Admin: 07/03/19 10:30 Dose: 20 mg Ramipril (Altace Cap*) 5 mg PO DAILY [facility] Last Admin: 07/03/19 10:30 Dose: 5 mg Spironolactone (Aldactone Tab*) 12.5 mg PO DAILY [facility] Last Admin: 07/03/19 10:30 Dose: 12.5 mg Home Medications: Home Medications Medication Instructions Recorded Confirmed Type Digoxin TAB* [Lanoxin TAB*] 0.125 mg PO DAILY 11/14/17 06/23/19 History levETIRAcetam TAB* [Keppra TAB*] 750 mg PO BID tab 11/16/17 06/23/19 Rx Atorvastatin* [Lipitor 20 MG*] 20 mg PO BEDTIME 12/01/18 06/23/19 History lamoTRIgine TAB(*) [Lamictal 100 mg PO BID 12/01/18 06/23/19 History TAB(*)] Carvedilol TAB* [Coreg TAB*] 3.125 mg PO BID #60 tab 06/19/19 06/23/19 Rx Furosemide TAB* [Lasix TAB*] 20 mg PO 0800 5 Days #30 tab 06/19/19 06/23/19 Rx Levalbuterol 0.63MG/3ML NEB* 0.31 mg INH Q6H PRN #30 neb.soln 06/19/19 06/23/19 Rx [Xopenex 0.63MG/3ML NEB*] Spironolactone TAB* [Aldactone TAB 12.5 mg PO DAILY #30 tab 06/19/19 06/23/19 Rx 25 MG*] predniSONE TAB* [Deltasone 20 MG 5 mg PO DAILY #10 tab 06/19/19 06/23/19 Rx TAB*] Cephalexin 500 mg PO QID 06/23/19 06/23/19 History Warfarin TAB(*) [Coumadin TAB(*)] 0.5 mg PO DAILY@1700 06/23/19 06/23/19 History Allergies: Allergies Allergy/AdvReac Type Severity Reaction Status Date / Time No Known Allergies Allergy Verified 06/23/19 04:24 Objective - Vital Signs Vital Signs: Vital Signs 07/03/19 07/03/19 07/03/19 08:00 11:15 15:25 Temperature 99.3 F 98.3 F Pulse Rate 77 75 Respiratory 20 24 22 Rate Blood Pressure 136/76 135/72 (mmHg) O2 Sat by Pulse 97 98 Oximetry 07/03/19 07/03/19 07/03/19 19:34 19:43 23:46 Temperature 98.1 F 96.9 F Pulse Rate 84 77 Respiratory 20 18 18 Rate Blood Pressure 139/66 135/68 (mmHg) O2 Sat by Pulse 90 90 Oximetry 07/04/19 07/04/19 07/04/19 02:21 02:53 03:45 Temperature 97.1 F 97 F Pulse Rate 70 72 Respiratory 24 20 20 Rate Blood Pressure 112/66 117/48 (mmHg) O2 Sat by Pulse 97 97 Oximetry - Intake and Output Intake and Output: Intake & Output 07/01/19 07/02/19 07/03/19 07/04/19 11:59 11:59 11:59 11:59 Intake Total 739 1231 1835 467.5 Output Total 800 1100 1500 2725 Balance -61 131 335 -2257.5 Weight 105 lb 104 lb 9.6 oz 106 lb 8 oz 104 lb 11.2 oz Intake: IV Fluids 114 021 8008 207.5 ABX - ZOSYN 100 D5W 399 381 970 D5W 1/2 NS 20 meq KCL 377 D5W 20meqK 350 Keppra 100 107.5 IVPB 220 350 210 250 ABX - CEFEPIME 50 56 50 ABX - CLINDAMYCIN 54 ABX - ZOSYN 100 50 Keppra 110 100 100 150 Thiamine 110 100 Oral 120 50 278 10 Output: Joya 800 1100 1500 2725 Other: Estimated Void Medium # Bowel Movements 1 Estimated Stool Amount Medium ADLs: Meal Record Start: 06/23/19 11: 08 Freq: 09,13,18 Status: Complete Protocol: Created 06/23/19 11:08 System (Rec: 06/23/19 11:08 System [id number]-C05) ADLs: Meal Record Start: 06/23/19 15: 24 Freq: DAILY@0900,1400,1800 Status: Active Protocol: Created 06/23/19 15:24 HOS2012 (Rec: 06/23/19 15:24 [id number] ICU-C25) Document 06/23/19 18:00 QJB1737 (Rec: 06/23/19 20:33 HHF0989 TELE-C07) Document 06/24/19 09:00 USZ6267 (Rec: 06/24/19 10:22 ULW4955 TELE-C03) Document 06/24/19 18:00 RYN7026 (Rec: 06/24/19 18:15 UYR5578 TELE-C07) Document 06/25/19 08:58 WWU6442 (Rec: 06/25/19 08:59 URF1242 TELE-M11) Document 06/25/19 13:57 DPZ3982 (Rec: 06/25/19 13:59 CDH5215 TELE-M11) Document 06/25/19 18:00 QLB5770 (Rec: 06/25/19 22:40 BOM6868 TELE-C05) Document 06/26/19 10:00 FOV4162 (Rec: 06/26/19 11:06 MIK0819 ICU-C15) Document 06/26/19 18:00 HRN9742 (Rec: 06/26/19 18:05 ILO9857 ICU-L03) Document 06/28/19 11:23 RHQ9792 (Rec: 06/28/19 11:23 RRI2576 TELE-M21) Document 06/28/19 13:25 XSR3305 (Rec: 06/28/19 13:25 ANN9607 TELE-M21) Document 06/28/19 21:48 YWE9474 (Rec: 06/28/19 21:48 PPP4996 TELE-C11) Document 06/29/19 04:22 PLV8682 (Rec: 06/29/19 04:23 SNO3686 TELE-M21) Document 06/29/19 05:29 RVF1473 (Rec: 06/29/19 05:29 YSN7494 TELE-M21) Document 06/30/19 18:13 JPZ0443 (Rec: 06/30/19 18:13 OKE9820 TELE-M21) Document 07/01/19 09:50 NCN8994 (Rec: 07/01/19 09:50 WRI5656 TELE-M21) Document 07/01/19 13:21 ORG9070 (Rec: 07/01/19 13:21 PVC8407 TELE-M21) Document 07/01/19 19:39 ZSB0642 (Rec: 07/01/19 19:39 UNJ6452 TELE-M21) Document 07/02/19 14:00 HED5778 (Rec: 07/02/19 14:47 FSQ6756 TELE-C05) Document 07/02/19 18:00 NZH5176 (Rec: 07/02/19 18:28 VIG0792 TELE-M21) Document 07/03/19 09:00 XWU0393 (Rec: 07/03/19 10:47 RGG3329 TELE-C01) Document 07/03/19 12:58 UCP0862 (Rec: 07/03/19 12:58 TOJ9497 TELE-C01) Document 07/03/19 18:00 NLU0149 (Rec: 07/03/19 20:00 FFL3836 TELE-C08) ADLs: Meal Record Start: 06/25/19 22: 26 Freq: Status: Complete Protocol: Created 06/25/19 22:26 XMQ6087 (Rec: 06/25/19 22:26 AAS0632 ICU-C25) ADLs: Meal Record Start: 06/28/19 12: 17 Freq: Status: Cancelled Protocol: Created 06/28/19 12:17 JIR7020 (Rec: 06/28/19 12:17 RGR9557 TELE-M21) Intake and Output Start: 06/23/19 04: 23 Freq: Status: Inactive Protocol: Created 06/23/19 04:23 System (Rec: 06/23/19 04:23 System EDRM-C10) Intake and Output Start: 06/23/19 11: 08 Freq: Q1HR Status: Inactive Protocol: Created 06/23/19 11:08 System (Rec: 06/23/19 11:08 System PMRU-C05) Document 06/23/19 14:59 VSO5580 (Rec: 06/23/19 15:00 XNQ0337 ICU-C25) Intake and Output Start: 06/23/19 15: 24 Freq: DAILY@0600,1400,2200 Status: Inactive Protocol: Document 06/23/19 12:00 TBZ7415 (Rec: 06/23/19 15:26 [id number] ICU-C25) Created 06/23/19 15:24 CPP9502 (Rec: 06/23/19 15:24 OUX1919 ICU-C25) Document 06/23/19 21:29 VLN5238 (Rec: 06/23/19 21:30 KAB5325 TELE-C07) Document 06/24/19 06:00 TZZ7124 (Rec: 06/24/19 06:06 XKE3818 TELE-C09) Document 06/24/19 22:00 AGC0543 (Rec: 06/24/19 22:36 FAN5007 TELE-C07) Document 06/25/19 05:51 TYT5664 (Rec: 06/25/19 05:52 UVH4280 TELE-C07) Document 06/25/19 12:11 QGQ2151 (Rec: 06/25/19 12:12 MRS1543 TELE-M11) Intake and Output Start: 06/25/19 22: 26 Freq: 06,14,2200 Status: Active Protocol: Created 06/25/19 22:26 JIL1200 (Rec: 06/25/19 22:26 DKX7326 ICU-C25) Document 06/25/19 23:00 IXM0410 (Rec: 06/25/19 23:05 QBZ9129 ICU-C25) Document 06/25/19 23:28 WUF0049 (Rec: 06/25/19 23:30 YUG3650 ICU-C16) Document 06/25/19 23:47 YON7140 (Rec: 06/25/19 23:47 UEU2760 ICU-C25) Document 06/26/19 01:00 CYT5202 (Rec: 06/26/19 02:24 OFZ0467 ICU-C25) Document 06/26/19 02:00 RVO4393 (Rec: 06/26/19 02:24 GQV7854 ICU-C25) Document 06/26/19 03:00 MND1161 (Rec: 06/26/19 03:21 WRM5964 ICU-C25) Document 06/26/19 04:00 IUI6014 (Rec: 06/26/19 04:13 SHK1108 ICU-C25) Document 06/26/19 05:00 GWH3183 (Rec: 06/26/19 05:01 CGE5690 ICU-C25) Document 06/26/19 06:00 HHV1481 (Rec: 06/26/19 06:05 PTJ0354 ICU-C25) Document 06/26/19 07:00 HHP9997 (Rec: 06/26/19 07:58 EFV1777 ICU-C15) Document 06/26/19 07:58 SSL3303 (Rec: 06/26/19 07:58 VLF3147 ICU-C15) Document 06/26/19 09:00 RAJ9338 (Rec: 06/26/19 09:41 MNA2994 ICU-C15) Document 06/26/19 10:00 KQO9954 (Rec: 06/26/19 11:07 QHU7701 ICU-C15) Document 06/26/19 11:00 KNQ1899 (Rec: 06/26/19 11:07 MCR0742 ICU-C15) Document 06/26/19 12:00 VCC7001 (Rec: 06/26/19 12:14 AQR9005 ICU-C15) Document 06/26/19 13:00 KWL9685 (Rec: 06/26/19 13:22 FGU3795 ICU-C15) Document 06/26/19 14:00 FIO4408 (Rec: 06/26/19 17:56 PJV3250 ICU-L03) Document 06/26/19 15:00 DBI1158 (Rec: 06/26/19 17:57 TRH0927 ICU-L03) Document 06/26/19 16:00 ZAS0172 (Rec: 06/26/19 17:57 LWV9905 ICU-L03) Document 06/26/19 17:00 WKW5757 (Rec: 06/26/19 17:57 SZX6715 ICU-L03) Document 06/26/19 17:57 LHL1999 (Rec: 06/26/19 17:57 SPF8906 ICU-L03) Document 06/26/19 19:00 JTE5789 (Rec: 06/26/19 19:08 NBA0489 ISDEMO-M03 ) Document 06/26/19 20:00 IHF5263 (Rec: 06/26/19 20:05 KGX4770 ICU-C15) Document 06/26/19 21:00 YNP3243 (Rec: 06/26/19 22:09 GKD2277 ISDEMO-M03 ) Document 06/26/19 22:00 WHE3271 (Rec: 06/26/19 22:09 FWA0864 ISDEMO-M03 ) Document 06/26/19 23:00 NBN1735 (Rec: 06/26/19 23:20 XWS6266 ICU-C15) Document 06/26/19 23:59 KEH5565 (Rec: 06/26/19 23:59 HIS6652 ICU-C15) Document 06/27/19 01:00 SEF0560 (Rec: 06/27/19 01:08 FLR0257 ICU-C15) Document 06/27/19 02:00 QZF7347 (Rec: 06/27/19 02:03 NOJ8951 ICU-C15) Document 06/27/19 03:00 OKT3200 (Rec: 06/27/19 05:10 YBL3479 ICU-C15) Document 06/27/19 04:00 PMJ8408 (Rec: 06/27/19 05:10 HJG3213 ICU-C15) Document 06/27/19 06:00 RBE8432 (Rec: 06/27/19 06:02 ZIV8801 ICU-C15) Document 06/27/19 08:00 IPA5373 (Rec: 06/27/19 08:07 ZFQ3098 ICU-C15) Document 06/27/19 09:31 FQO2784 (Rec: 06/27/19 09:31 FRU2979 ICU-C15) Document 06/27/19 11:00 OCP6811 (Rec: 06/27/19 11:10 CTJ3037 ICU-C15) Document 06/27/19 13:45 NBE5358 (Rec: 06/27/19 13:56 GUT7830 ICU-C15) Document 07/02/19 07:36 KKD1387 (Rec: 07/02/19 07:36 RFJ8800 TELE-M20) Document 07/02/19 14:00 UHG5312 (Rec: 07/02/19 14:47 KQC2650 TELE-C05) Document 07/02/19 15:34 NEN6659 (Rec: 07/02/19 15:34 SBA5805 TELE-M20) Document 07/02/19 21:53 PPX4218 (Rec: 07/02/19 21:53 PTC2198 TELE-M21) Document 07/03/19 06:00 GMW1747 (Rec: 07/03/19 07:27 CRA2618 TELE-C10) Document 07/03/19 14:00 OAH5577 (Rec: 07/03/19 14:58 BJS7591 TELE-C01) Document 07/03/19 21:47 XYT3758 (Rec: 07/03/19 21:47 DHM1555 TELE-C08) Document 07/04/19 03:30 YDM4039 (Rec: 07/04/19 07:00 MUK9151 MED-M16) Document 07/04/19 06:00 YXI6327 (Rec: 07/04/19 06:04 XRQ7848 TELE-C08) - Physical Exam General Physical Exam Comment: She is awake, talking and difficult to understand. She followed some one step commands ("wriggle your toes)". She looks dry clinically - mucus membranes, turgor. General: No Cyanosis, No Anemia, No Jaundice, No Clubbing Lungs and Chest: Yes: Chest Expansion Full, Chest Expansion Symetrica, Percussion Note Resonant, Crackles, Respiratory Distress. No: Vessicular Breath Sounds, Wheezes, Use of Accessory Muscles Heart Rate and Rhythm: Irregular Additional Cardiovascular: Yes: Normal Heart Sounds, Heart Murmur. No: Pedal Edema Abdominal Exam: Yes: Soft, Bowel Sounds Present. No: Distention, Hepatomegaly, Abdominal Tenderness Results - Results Lab Results: Laboratory Results - last 24 hr 07/01/19 07/03/1919 05:31 15:20 15:20 Hem Pathologist Commnt INR (Anticoag Therapy) 7.48 H* Sodium 148 H Potassium 3.6 Chloride 115 H Carbon Dioxide 26 Anion Gap 7 BUN 34 H Creatinine 1.09 H Est GFR ( Amer) 58.6 Est GFR (Non-Af Amer) 48.4 BUN/Creatinine Ratio 31.2 H Glucose 167 H Calcium 7.8 L Magnesium 1.9 Total Bilirubin 3.60 H AST 33 ALT 34 Alkaline Phosphatase 95 C-Reactive Protein 61.94 H Total Protein 5.6 L Albumin 2.9 L Globulin 2.7 Albumin/Globulin Ratio 1.1 Assessment - Problem List Assessment: Patient Problems Acute renal failure (Acute) Altered mental state (Acute) CHF, acute (Acute) Coronary artery disease (Acute) Hypernatremia (Acute) Hypokalemia (Acute) Leukocytosis (Acute) Lower respiratory tract infection (Acute) Pulmonary edema (Acute) Alcohol dependence (Chronic) Anticoagulated (Chronic) Atrial fibrillation (Chronic) Bronchiectasis (Chronic) COPD (chronic obstructive pulmonary disease) (Chronic) DVT prophylaxis (Chronic) 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 Cefepime + clindamycin didn't provide sufficient coverage and she is back to piperacillin/Tazobactam. I think she has adult respiratory distress syndrome due to capillary fragility and the pulmonary hypertension results in pulmonary edema. We are managing this conservatively and not contemplating BIPAP or mechanical ventilation. Acute renal failure (Acute) Pending labs - but she has had no IVF yesterday and is in a net negative balance. I will address this today Altered mental state (Acute) She is alert and follows some simple commands. I think this relates to her medical state. I am trying not to sedate her overly. CHF, acute (Acute) Pulmonary edema (Acute) She has normal systolic function, marked mitral regurgitation, likely diastolic dysfunction. This leads to pulmonary hypertension (measured/estimated by transthoracic echocardiogram at 50 mm Hg). Coronary artery disease (Acute) I see no evidence here of ischemia Hypernatremia (Acute) Ongoing problem due to dilemma of keeping her volume status dry to prevent extravasation of fluid into the lungs through leaky capillaries. I have had to add back in zosyn. I will give her free water as much as I can - I note she is likely to have an increase in brain idiogenic osmoles. 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 I explained there has been no improvement. He is well aware of the poor prognosis and is understanding of this lengthy illness. I told him that if we control the infection, we have a chance of allowing her other systems to correct themselves. She has some degree of resilience, but given she has poor nutrition and the steroids place her in a catabolic state, I think with each day this becomes less likely. I discussed asking for consultations (pulmonology, infectious diseases, nephrology), he feels we are already taking a reasonable course and that it is best to continue as we are. She is confused and I think that NG tube placement would be problematic. We will try to feed her when she has lucid moments.
[2019-07-04] MEDS: levETIRAcetam IV* 750 MG in NS 0.9% 100 ML* 100 ML IVPB SCH ×2 (10:05→20:59)
[2019-07-04] MEDS: Famotidine IV* 10 MG/ML 2 ML (20 mg) IV SLOW PU SCH ×2 (10:06→21:01)
[2019-07-04] MEDS: Ramipril CAP* 5 MG PO SCH (10:06)
[2019-07-04] MEDS: Spironolactone TAB* 25 MG PO SCH (10:06)
[2019-07-04] MEDS: lamoTRIgine TAB(*) 100 MG PO SCH ×2 (10:07→21:00)
[2019-07-04] MEDS: predniSONE TAB* 20 MG PO SCH (10:07)
[2019-07-04 10:08] LABS: ABS Basophils 0.2 10^3/ul (0-0.2); ABS Eosinophils 0.8 10^3/ul (0-0.6); ABS Lymphocytes 1.7 10^3/ul (1.0-4.8); ABS Monocytes 0.7 10^3/ul (0-0.8); ABS Neutrophils 12.4 10^3/ul (1.5-7.7); Eosinophil % 4.9 %; Hematocrit 28 % (35-47); Lymphocyte % 10.6 %; Mean Corpuscular HGB Conc 32 g/dL (31-36); Mean Corpuscular Hemoglobin 29 pg (27-31); Mean Corpuscular Volume 90 fL (80-97); Mean Platelet Volume 9.2 fL (7.4-10.4); Platelet Count 124 10^3/uL (150-450); Red Blood Count 3.11 10^6 /uL (3.70-4.87); Red Cell Distribution Width 24 % (10-15); White Blood Count 15.7 10^3/uL (3.5-10.8)
[2019-07-04 10:23] LABS: BUN/Creatinine Ratio 27.8 (8-20); C Reactive Protein 78.4 mg/L (<8.01); Calcium 7.8 mg/dL (8.6-10.3); EGFR African American 55.1 (>60); EGFR Non-African American 45.5 (>60); Potassium 3.1 mmol/L (3.5-5.0)
[2019-07-04 11:11] LABS: INR 6.45 (0.82-1.09)
[2019-07-04] MEDS ORDERED: WARFARIN - No Order Today* 1 NOTE MISC FOLLOW UP SCH (13:00)
[2019-07-04] MEDS: methylPREDNISolone SOD 40 MG* 1 ML VIAL IV SCH ×2 (13:15→21:00)
[2019-07-04] MEDS: D5W 1/4 NS 20 Meq KCL 1000 ML* 1,000 ML IV SCH (13:15)
[2019-07-04] MEDS: DIGOXIN PO SCH (16:30)
[2019-07-04] MEDS: Atorvastatin* 40 MG TAB PO SCH (16:30)
[2019-07-04] MEDS: ORALSYR PO SCH (16:30)
[2019-07-04] MEDS ORDERED: NS 0.9% 100 ML* 100 ML ONE (20:39)
[2019-07-05] MEDS: Morphine INJ* 2 MG/ML 1 ML SYRINGE (TWO MG - NEW SYRINGE VERSION) IV PRN ×5 (00:06→20:37)
[2019-07-05] MEDS: Haloperidol INJ IV/IM* 5 MG/ML AMP IV SLOW PU PRN (00:34)
[2019-07-05] MEDS: Metoprolol Tartrate IV* 1 MG/ML 5 ML VIAL IV SCH ×4 (03:58→20:48)
[2019-07-05] MEDS: methylPREDNISolone SOD 40 MG* 1 ML VIAL IV SCH ×3 (03:58→20:42)
[2019-07-05] MEDS: ZOSYN 3.375 GM Q8H per EXTENDED INFUSION IVPB SCH ×6 (05:52→21:16)
[2019-07-05 06:15] LABS: BUN/Creatinine Ratio 28.4 (8-20); C Reactive Protein 65.91 mg/L (<8.01); Calcium 8.2 mg/dL (8.6-10.3); EGFR African American 58.6 (>60); EGFR Non-African American 48.4 (>60); Potassium 3.7 mmol/L (3.5-5.0)
[2019-07-05 06:30] LABS: INR 6.01 (0.82-1.09)
--- NOTE | 2019-07-05 07:39 | PN ---
Subjective - Subjective Reason for Note: Progress Note History: She had an exacerbated delirium yesterday evening, requiring some haloperidol for sedation. She is asleep this morning. I was able to rouse her, but she went right back to sleep. She hasn't eaten anything significant. I started her on methylprednisolone for acute respiratory distress syndrome (ARDS). Her respiratory function remains profoundly compromised. Active Problems: Active Problems ARDS (adult respiratory distress syndrome) (Acute) J80 Acute renal failure (Acute) Altered mental state (Acute) R41.82 Pt is even more confused and agitated today compared to yesterday at my visit. Cause of her confusion is not clear. There is no evidence of infection. CT brain negative for any acute findings. ? hospital acquired delirium in the setting of a person who at baseline is mild to moderately confused (per [facility] staff) vs related to EtOH withdrawl (seems unlikely as pt has no other signs of withdrawl) vs non convulsive status (also unlikely given how verbal and active she has been). I trialed seroquel 25mg last night and reportedly she had an ok night. Given the screaming and marked agitation at this time will give haldol 2mg IV x1 now to see if she will settle and be more appropriate with her care. CHF, acute (Acute) I50.9 Pt was felt to have acute diastolic CHF/flash pulmonary edema on presenation. She required BiPAP for acute hypoxic resp failure. This is now resolved. She is now on RA. Resume lasix and spironolactone- I doubt she will take her meds at this time. Coronary artery disease (Acute) I25.10 Hypernatremia (Acute) E87.0 Hypokalemia (Acute) E87.6 Leukocytosis (Acute) D72.829 Lower respiratory tract infection (Acute) J22 Pulmonary edema (Acute) J81.1 Alcohol dependence (Chronic) F10.20 As pt is unable to tell me anything useful, it is unclear if she is still drinking. She does not appear to be withdrawling from EtOH. Anticoagulated (Chronic) Z79.01 Atrial fibrillation (Chronic) I48.91 Pt is in afib but controlled rate. Continue coreg and digoxin and coumadin. Recheck INR tomorrow. Pt refused labs this AM. Bronchiectasis (Chronic) J47.9 COPD (chronic obstructive pulmonary disease) (Chronic) J44.9 No signs of exacerbation. Stop solumedrol. Monitor respiratory status. 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 Continue keppra and lamotrigine. Keppra level sent last night just prior to her receiving her evening dose. Current Medications: Current Medications Acetaminophen (Tylenol Tab*) 650 mg PO Q4H PRN PRN Reason: FEVER/PAIN Atorvastatin Calcium (Lipitor*) 40 mg PO 1700 [facility] Last Admin: 07/04/19 16:30 Dose: 40 mg Digoxin (Lanoxin Liq* Oralsyr) 0.125 mg PO 1700 [facility] Last Admin: 07/04/19 16:30 Dose: 0.125 mg Famotidine (Pepcid Iv*) 20 mg IV SLOW PU BID [facility] Last Admin: 07/04/19 21:01 Dose: 20 mg Haloperidol Lactate (Haldol Inj Iv/Im*) 2.5 mg IV SLOW PU Q8H PRN PRN Reason: AGITATION Last Admin: 07/05/19 00:34 Dose: 2.5 mg Hydralazine HCl (Apresoline Iv*) 5 mg IV SLOW PU Q4H PRN PRN Reason: SBP > 160 Last Admin: 06/28/19 19:46 Dose: 5 mg Levetiracetam 750 mg/ Sodium (Chloride) 107.5 mls @ 410 mls/hr IVPB Q12H [facility] Last Admin: 07/04/19 20:59 Dose: 410 mls/hr Piperacillin Sod/Tazobactam (Sod 3.375 gm/ Sodium Chloride) 100 mls @ 25 mls/ hr IVPB Q8H [facility] Last Admin: 07/05/19 05:52 Dose: 25 mls/hr Potassium Chloride/Dextrose (D5w 1/4 Ns 20 Meq Kcl 1000 Ml*) 1,000 mls @ 50 mls /hr IV PER RATE [facility] Last Admin: 07/04/19 13:15 Dose: 50 mls/hr Lamotrigine (Lamictal Tab(*)) 50 mg PO BID [facility] Last Admin: 07/04/19 21:00 Dose: 50 mg Levalbuterol HCl (Xopenex 0.63mg/3ml Neb*) 0.31 mg INH Q6H PRN PRN Reason: SOB/WHEEZING Last Admin: 06/25/19 21:39 Dose: 0.63 mg Methylprednisolone Sodium Succinate (Solu-Medrol 40 Mg) 20 mg IV Q8H [facility] Last Admin: 07/05/19 03:58 Dose: 20 mg Metoprolol Tartrate (Lopressor Iv*) 2.5 mg IV Q6H [facility] Last Admin: 07/05/19 03:58 Dose: 2.5 mg Morphine Sulfate (Morphine Inj (Syringe))*) 1 mg IV Q1H PRN PRN Reason: DISCOMFORT Last Admin: 07/05/19 05:50 Dose: 1 mg Pharmacy Consult (Zosyn Per Pharmacy*) 1 note FOLLOW UP .ZOSYN PER PHARMACY [facility] Pharmacy Profile Note (Coumadin Per Pharmacy*) 1 note FOLLOW UP .PER PHARMACY [facility]; Protocol Ramipril (Altace Cap*) 5 mg PO DAILY [facility] Last Admin: 07/04/19 10:06 Dose: 5 mg Spironolactone (Aldactone Tab*) 12.5 mg PO DAILY [facility] Last Admin: 07/04/19 10:06 Dose: 12.5 mg Home Medications: Home Medications Medication Instructions Recorded Confirmed Type Digoxin TAB* [Lanoxin TAB*] 0.125 mg PO DAILY 11/14/17 06/23/19 History levETIRAcetam TAB* [Keppra TAB*] 750 mg PO BID tab 11/16/17 06/23/19 Rx Atorvastatin* [Lipitor 20 MG*] 20 mg PO BEDTIME 12/01/18 06/23/19 History lamoTRIgine TAB(*) [Lamictal 100 mg PO BID 12/01/18 06/23/19 History TAB(*)] Carvedilol TAB* [Coreg TAB*] 3.125 mg PO BID #60 tab 06/19/19 06/23/19 Rx Furosemide TAB* [Lasix TAB*] 20 mg PO 0800 5 Days #30 tab 06/19/19 06/23/19 Rx Levalbuterol 0.63MG/3ML NEB* 0.31 mg INH Q6H PRN #30 neb.soln 06/19/19 06/23/19 Rx [Xopenex 0.63MG/3ML NEB*] Spironolactone TAB* [Aldactone TAB 12.5 mg PO DAILY #30 tab 06/19/19 06/23/19 Rx 25 MG*] predniSONE TAB* [Deltasone 20 MG 5 mg PO DAILY #10 tab 06/19/19 06/23/19 Rx TAB*] Cephalexin 500 mg PO QID 06/23/19 06/23/19 History Warfarin TAB(*) [Coumadin TAB(*)] 0.5 mg PO DAILY@1700 06/23/19 06/23/19 History Allergies: Allergies Allergy/AdvReac Type Severity Reaction Status Date / Time No Known Allergies Allergy Verified 06/23/19 04:24 Objective - Vital Signs Vital Signs: Vital Signs 07/04/19 07/04/19 07/04/19 08:00 08:05 11:36 Temperature 99.4 F 98.7 F Pulse Rate 64 76 Respiratory 17 16 20 Rate Blood Pressure 136/58 133/62 (mmHg) O2 Sat by Pulse 98 Oximetry 07/04/19 07/04/19 07/04/19 15:55 18:51 19:06 Temperature 97.6 F 97.5 F Pulse Rate 84 80 Respiratory 16 16 16 Rate Blood Pressure 140/75 138/75 (mmHg) O2 Sat by Pulse 94 95 Oximetry 07/04/19 07/05/19 07/05/19 23:57 00:06 01:32 Temperature 97.3 F Pulse Rate 93 Respiratory 18 28 28 Rate Blood Pressure 148/89 (mmHg) O2 Sat by Pulse 90 Oximetry 07/05/19 07/05/19 07/05/19 01:42 03:17 03:36 Temperature 97 F Pulse Rate 77 Respiratory 28 20 16 Rate Blood Pressure 121/76 (mmHg) O2 Sat by Pulse 100 Oximetry 07/05/19 07/05/19 07/05/19 03:55 05:20 05:50 Temperature Pulse Rate Respiratory 28 20 32 Rate Blood Pressure (mmHg) O2 Sat by Pulse Oximetry - Intake and Output Intake and Output: Intake & Output 07/02/19 07/03/19 07/04/19 07/05/19 11:59 11:59 11:59 11:59 Intake Total 1231 1835 537.5 300 Output Total 1100 1500 2725 1150 Balance 131 335 -2187.5 -850 Weight 104 lb 9.6 oz 106 lb 8 oz 104 lb 11.2 oz 110 lb 4.8 oz Intake: IV Fluids 831 1347 257.5 ABX - ZOSYN 150 D5W 381 970 D5W 1/2 NS 20 meq KCL 377 D5W 20meqK 350 Keppra 100 107.5 IVPB 350 210 250 ABX - CEFEPIME 50 56 50 ABX - CLINDAMYCIN 54 ABX - ZOSYN 100 50 Keppra 100 100 150 Thiamine 100 Oral 50 278 30 300 Output: Joya 1100 1500 2725 1150 Other: Estimated Void Medium # Bowel Movements 1 0 Estimated Stool Amount Medium ADLs: Meal Record Start: 06/23/19 11: 08 Freq: 09,13,18 Status: Complete Protocol: Created 06/23/19 11:08 System (Rec: 06/23/19 11:08 System [facility]-C05) ADLs: Meal Record Start: 06/23/19 15: 24 Freq: DAILY@0900,1400,1800 Status: Active Protocol: Created 06/23/19 15:24 SEX1002 (Rec: 06/23/19 15:24 [id number] ICU-C25) Document 06/23/19 18:00 TNH5726 (Rec: 06/23/19 20:33 AVN3839 TELE-C07) Document 06/24/19 09:00 CSI7952 (Rec: 06/24/19 10:22 UQY9329 TELE-C03) Document 06/24/19 18:00 QBN6627 (Rec: 06/24/19 18:15 OAR4096 TELE-C07) Document 06/25/19 08:58 JNM3673 (Rec: 06/25/19 08:59 YRJ3420 TELE-M11) Document 06/25/19 13:57 TWU9721 (Rec: 06/25/19 13:59 BWZ7025 TELE-M11) Document 06/25/19 18:00 SEV2515 (Rec: 06/25/19 22:40 NKC7536 TELE-C05) Document 06/26/19 10:00 GXP7274 (Rec: 06/26/19 11:06 QXW0237 ICU-C15) Document 06/26/19 18:00 BFR7383 (Rec: 06/26/19 18:05 EHG0375 ICU-L03) Document 06/28/19 11:23 GBJ2552 (Rec: 06/28/19 11:23 FWN6934 TELE-M21) Document 06/28/19 13:25 APV9635 (Rec: 06/28/19 13:25 PKF4706 TELE-M21) Document 06/28/19 21:48 VWL9056 (Rec: 06/28/19 21:48 RLL0707 TELE-C11) Document 06/29/19 04:22 FLY1185 (Rec: 06/29/19 04:23 IQR5756 TELE-M21) Document 06/29/19 05:29 ZRC6965 (Rec: 06/29/19 05:29 EEU4069 TELE-M21) Document 06/30/19 18:13 GTZ0726 (Rec: 06/30/19 18:13 VNW2390 TELE-M21) Document 07/01/19 09:50 NWJ7171 (Rec: 07/01/19 09:50 KJZ7529 TELE-M21) Document 07/01/19 13:21 DQO9804 (Rec: 07/01/19 13:21 GDW0484 TELE-M21) Document 07/01/19 19:39 RCA5576 (Rec: 07/01/19 19:39 HCU4859 TELE-M21) Document 07/02/19 14:00 ARY4152 (Rec: 07/02/19 14:47 ESO9237 TELE-C05) Document 07/02/19 18:00 BDM2173 (Rec: 07/02/19 18:28 ESP5929 TELE-M21) Document 07/03/19 09:00 OSX4932 (Rec: 07/03/19 10:47 EPC0588 TELE-C01) Document 07/03/19 12:58 SXK7097 (Rec: 07/03/19 12:58 TTX0212 TELE-C01) Document 07/03/19 18:00 XMM2632 (Rec: 07/03/19 20:00 ESM3621 TELE-C08) Document 07/04/19 09:00 PFC9165 (Rec: 07/04/19 09:37 XOZ1732 TELE-M07) Document 07/04/19 12:44 RAZ6451 (Rec: 07/04/19 12:44 WZR3241 TELE-M07) Document 07/04/19 18:00 HTG2494 (Rec: 07/04/19 18:07 GPK8014 TELE-M07) ADLs: Meal Record Start: 06/25/19 22: 26 Freq: Status: Complete Protocol: Created 06/25/19 22:26 OHD9615 (Rec: 06/25/19 22:26 YUR7518 ICU-C25) ADLs: Meal Record Start: 06/28/19 12: 17 Freq: Status: Cancelled Protocol: Created 06/28/19 12:17 DGE7895 (Rec: 06/28/19 12:17 XIK6923 TELE-M21) Intake and Output Start: 06/23/19 04: 23 Freq: Status: Inactive Protocol: Created 06/23/19 04:23 System (Rec: 06/23/19 04:23 System EDRM-C10) Intake and Output Start: 06/23/19 11: 08 Freq: Q1HR Status: Inactive Protocol: Created 06/23/19 11:08 System (Rec: 06/23/19 11:08 System PMRU-C05) Document 06/23/19 14:59 QQH2399 (Rec: 06/23/19 15:00 QEH7818 ICU-C25) Intake and Output Start: 06/23/19 15: 24 Freq: DAILY@0600,1400,2200 Status: Inactive Protocol: Document 06/23/19 12:00 ILS1039 (Rec: 06/23/19 15:26 AWX2443 ICU-C25) Created 06/23/19 15:24 FTY6511 (Rec: 06/23/19 15:24 BMZ5966 ICU-C25) Document 06/23/19 21:29 IVA3127 (Rec: 06/23/19 21:30 FIY0035 TELE-C07) Document 06/24/19 06:00 WNE8491 (Rec: 06/24/19 06:06 WLN4373 TELE-C09) Document 06/24/19 22:00 OJU1296 (Rec: 06/24/19 22:36 TMF9746 TELE-C07) Document 06/25/19 05:51 CTA9770 (Rec: 06/25/19 05:52 PFO7419 TELE-C07) Document 06/25/19 12:11 VMF1182 (Rec: 06/25/19 12:12 EOP4397 TELE-M11) Intake and Output Start: 06/25/19 22: 26 Freq: 06,14,2200 Status: Active Protocol: Created 06/25/19 22:26 TUK3871 (Rec: 06/25/19 22:26 DOF0264 ICU-C25) Document 06/25/19 23:00 VZA9180 (Rec: 06/25/19 23:05 KDF1074 ICU-C25) Document 06/25/19 23:28 DHS9041 (Rec: 06/25/19 23:30 RHR9161 ICU-C16) Document 06/25/19 23:47 CTB2312 (Rec: 06/25/19 23:47 NJQ2128 ICU-C25) Document 06/26/19 01:00 GYA8011 (Rec: 06/26/19 02:24 GAK7516 ICU-C25) Document 06/26/19 02:00 PXY9355 (Rec: 06/26/19 02:24 EIL5771 ICU-C25) Document 06/26/19 03:00 WMO9921 (Rec: 06/26/19 03:21 NAS5646 ICU-C25) Document 06/26/19 04:00 HAK6375 (Rec: 06/26/19 04:13 VGY8504 ICU-C25) Document 06/26/19 05:00 BSP6667 (Rec: 06/26/19 05:01 KFL5569 ICU-C25) Document 06/26/19 06:00 XVN1094 (Rec: 06/26/19 06:05 NKQ5148 ICU-C25) Document 06/26/19 07:00 ZXG0586 (Rec: 06/26/19 07:58 EQU6687 ICU-C15) Document 06/26/19 07:58 PDQ3914 (Rec: 06/26/19 07:58 OBM5885 ICU-C15) Document 06/26/19 09:00 VUB4693 (Rec: 06/26/19 09:41 PCC3438 ICU-C15) Document 06/26/19 10:00 EPD6543 (Rec: 06/26/19 11:07 JBH1763 ICU-C15) Document 06/26/19 11:00 DEI6981 (Rec: 06/26/19 11:07 MMI2088 ICU-C15) Document 06/26/19 12:00 EIG5892 (Rec: 06/26/19 12:14 EEL7848 ICU-C15) Document 06/26/19 13:00 PGA5086 (Rec: 06/26/19 13:22 PTB3435 ICU-C15) Document 06/26/19 14:00 TBP4671 (Rec: 06/26/19 17:56 AES3581 ICU-L03) Document 06/26/19 15:00 USY2540 (Rec: 06/26/19 17:57 LKU8905 ICU-L03) Document 06/26/19 16:00 HGY4973 (Rec: 06/26/19 17:57 LVR6005 ICU-L03) Document 06/26/19 17:00 RNK4682 (Rec: 06/26/19 17:57 CPA4108 ICU-L03) Document 06/26/19 17:57 DTN0768 (Rec: 06/26/19 17:57 NTD3188 ICU-L03) Document 06/26/19 19:00 HGR5916 (Rec: 06/26/19 19:08 LCY6082 ISDEMO-M03 ) Document 06/26/19 20:00 JLJ7823 (Rec: 06/26/19 20:05 RTN9259 ICU-C15) Document 06/26/19 21:00 YWO7262 (Rec: 06/26/19 22:09 KYA1631 ISDEMO-M03 ) Document 06/26/19 22:00 FQI2956 (Rec: 06/26/19 22:09 EZP3980 ISDEMO-M03 ) Document 06/26/19 23:00 OFB2798 (Rec: 06/26/19 23:20 HXD7762 ICU-C15) Document 06/26/19 23:59 QPU2116 (Rec: 06/26/19 23:59 AUU1756 ICU-C15) Document 06/27/19 01:00 BNZ3490 (Rec: 06/27/19 01:08 LDF3351 ICU-C15) Document 06/27/19 02:00 AFI1492 (Rec: 06/27/19 02:03 IDT2623 ICU-C15) Document 06/27/19 03:00 NGB0449 (Rec: 06/27/19 05:10 WFB5634 ICU-C15) Document 06/27/19 04:00 BNI7231 (Rec: 06/27/19 05:10 FES5373 ICU-C15) Document 06/27/19 06:00 JOU8107 (Rec: 06/27/19 06:02 QNX5483 ICU-C15) Document 06/27/19 08:00 HDU6328 (Rec: 06/27/19 08:07 NYQ8270 ICU-C15) Document 06/27/19 09:31 FMR4529 (Rec: 06/27/19 09:31 BXI5256 ICU-C15) Document 06/27/19 11:00 AMQ8695 (Rec: 06/27/19 11:10 EYA3894 ICU-C15) Document 06/27/19 13:45 JQQ0034 (Rec: 06/27/19 13:56 BAI5880 ICU-C15) Document 07/02/19 07:36 VFM1201 (Rec: 07/02/19 07:36 MLU9589 TELE-M20) Document 07/02/19 14:00 SPO4919 (Rec: 07/02/19 14:47 SWA4198 TELE-C05) Document 07/02/19 15:34 OCP4203 (Rec: 07/02/19 15:34 VHC2945 TELE-M20) Document 07/02/19 21:53 WWE9060 (Rec: 07/02/19 21:53 CSV4755 TELE-M21) Document 07/03/19 06:00 WMJ4444 (Rec: 07/03/19 07:27 PBA6859 TELE-C10) Document 07/03/19 14:00 QOM4697 (Rec: 07/03/19 14:58 NUQ2554 TELE-C01) Document 07/03/19 21:47 SLZ4055 (Rec: 07/03/19 21:47 YZD2804 TELE-C08) Document 07/04/19 03:30 PFP2449 (Rec: 07/04/19 07:00 FNV4158 MED-M16) Document 07/04/19 06:00 XKR1270 (Rec: 07/04/19 06:04 HCV4562 TELE-C08) Document 07/04/19 13:35 FPV3976 (Rec: 07/04/19 13:36 WRZ4823 TELE-M07) Document 07/04/19 21:32 PGM4813 (Rec: 07/04/19 21:37 MHX3135 TELE-M07) Document 07/05/19 06:00 NDH8585 (Rec: 07/05/19 07:03 ZRF7746 TELE-C10) - Physical Exam General Physical Exam Comment: Cool extremities. General: No Cyanosis, No Jaundice, No Clubbing Lungs and Chest: Yes: Chest Expansion Full, Chest Expansion Symetrica, Crackles , Other - tachypnea. No: Vessicular Breath Sounds, Wheezes, Respiratory Distress, Use of Accessory Muscles Heart Rate and Rhythm: Irregular Additional Cardiovascular: Yes: Normal Heart Sounds, Heart Murmur. No: Pedal Edema Abdominal Exam: Yes: Soft, Bowel Sounds Present. No: Distention, Abdominal Tenderness Results - Results Lab Results: Laboratory Results - last 24 hr 07/04/19 07/04/19 07/04/19 09:54 09:54 09:54 WBC 15.7 H RBC 3.11 L Hgb 9.0 L Hct 28 L MCV 90 MCH 29 MCHC 32 RDW 24 H Plt Count 124 L MPV 9.2 Neut % (Auto) 79.0 Lymph % (Auto) 10.6 Dougherty % (Auto) 4.4 Eos % (Auto) 4.9 Baso % (Auto) 1.1 Absolute Neuts (auto) 12.4 H Absolute Lymphs (auto) 1.7 Absolute Monos (auto) 0.7 Absolute Eos (auto) 0.8 H Absolute Basos (auto) 0.2 Absolute Nucleated RBC 0.0 Nucleated RBC % 0.0 INR (Anticoag Therapy) 6.45 H* Sodium 148 H Potassium 3.1 L Chloride 112 H Carbon Dioxide 28 Anion Gap 8 BUN 32 H Creatinine 1.15 H Est GFR ( Amer) 55.1 Est GFR (Non-Af Amer) 45.5 BUN/Creatinine Ratio 27.8 H Glucose 126 H Calcium 7.8 L C-Reactive Protein 78.40 H 07/05/19 07/05/19 05:50 05:50 WBC RBC Hgb Hct MCV MCH MCHC RDW Plt Count MPV Neut % (Auto) Lymph % (Auto) Dougherty % (Auto) Eos % (Auto) Baso % (Auto) Absolute Neuts (auto) Absolute Lymphs (auto) Absolute Monos (auto) Absolute Eos (auto) Absolute Basos (auto) Absolute Nucleated RBC Nucleated RBC % INR (Anticoag Therapy) 6.01 H* Sodium 147 H Potassium 3.7 Chloride 113 H Carbon Dioxide 23 Anion Gap 11 BUN 31 H Creatinine 1.09 H Est GFR ( Amer) 58.6 Est GFR (Non-Af Amer) 48.4 BUN/Creatinine Ratio 28.4 H Glucose 176 H Calcium 8.2 L C-Reactive Protein 65.91 H Assessment - Problem List Assessment: Patient Problems ARDS (adult respiratory distress syndrome) (Acute) Acute renal failure (Acute) Altered mental state (Acute) CHF, acute (Acute) Coronary artery disease (Acute) Hypernatremia (Acute) Hypokalemia (Acute) Leukocytosis (Acute) Lower respiratory tract infection (Acute) Pulmonary edema (Acute) Alcohol dependence (Chronic) Anticoagulated (Chronic) Atrial fibrillation (Chronic) Bronchiectasis (Chronic) COPD (chronic obstructive pulmonary disease) (Chronic) DVT prophylaxis (Chronic) 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 I reviewed her radiology yesterday with a radiologist - the findings are consistent both with ARDS and CHF, they are not consistent with Bronchiolitis obliterans organizing pneumonia (BOOP). I started her on methylprednisolone 20 mg IV tid. Her labs show that her CRP is coming down a little. Acute renal failure (Acute) This has improved with IVF yesterday with D5W with 1/4 NS and 20 meq KCl. Given her poor muscle bulk, her creatinine may under estimate her poor renal function. Altered mental state (Acute) This morning she is sedated. Hypernatremia (Acute) This is improving Hypokalemia (Acute) Her potassium is 3.7 - I would prefer it to be > 4 with digoxin Leukocytosis (Acute) This is steroid related and I am not measuring this at present. 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 He agrees with this management plan and is not ready for her to be comfort care only. He is aware of her uncertain/poor prognosis at present
[2019-07-05] MEDS ORDERED: Phytonadione IV (Adult)* 10 MG/ML 1 ML AMP IV ONE (07:54)
[2019-07-05] MEDS ORDERED: Phytonadione 5 mg in 50 mL NS over 30 min IV ONE (08:00)
[2019-07-05] MEDS: Spironolactone TAB* 25 MG PO SCH (10:22)
[2019-07-05] MEDS: Famotidine IV* 10 MG/ML 2 ML (20 mg) IV SLOW PU SCH ×2 (10:22→20:46)
[2019-07-05] MEDS: Ramipril CAP* 5 MG PO SCH (10:23)
[2019-07-05] MEDS: lamoTRIgine TAB(*) 100 MG PO SCH ×2 (10:24→20:46)
[2019-07-05] MEDS: levETIRAcetam IV* 750 MG in NS 0.9% 100 ML* 100 ML IVPB SCH ×2 (10:24→20:49)
[2019-07-05 14:39] LABS: Levetiracetam 53.3 mcg/mL
[2019-07-05] MEDS: ORALSYR PO SCH (18:10)
[2019-07-05] MEDS: Atorvastatin* 40 MG TAB PO SCH (18:10)
[2019-07-05] MEDS: DIGOXIN PO SCH (18:10)
[2019-07-05] MEDS: D5W 1/4 NS 20 Meq KCL 1000 ML* 1,000 ML IV SCH (20:38)
[2019-07-06] MEDS: Haloperidol INJ IV/IM* 5 MG/ML AMP IV SLOW PU PRN ×3 (00:28→22:09)
[2019-07-06] MEDS: Morphine INJ* 2 MG/ML 1 ML SYRINGE (TWO MG - NEW SYRINGE VERSION) IV PRN ×2 (02:00→03:53)
[2019-07-06] MEDS: Metoprolol Tartrate IV* 1 MG/ML 5 ML VIAL IV SCH ×4 (03:28→22:31)
[2019-07-06] MEDS: methylPREDNISolone SOD 40 MG* 1 ML VIAL IV SCH ×3 (03:28→22:31)
[2019-07-06] MEDS ORDERED: LORazepam INJ* 2 MG/ML 1 ML VIAL IV PUSH ONE (05:01)
[2019-07-06] MEDS: ZOSYN 3.375 GM Q8H per EXTENDED INFUSION IVPB SCH ×6 (05:06→22:32)
[2019-07-06] MEDS ORDERED: Lorazepam PYXIS KEY PRN (05:32)
[2019-07-06 06:06] LABS: INR 1.55 (0.82-1.09)
[2019-07-06 06:13] LABS: BUN/Creatinine Ratio 30.8 (8-20); C Reactive Protein 36.87 mg/L (<8.01); Calcium 8.1 mg/dL (8.6-10.3); EGFR African American 59.9 (>60); EGFR Non-African American 49.5 (>60); Potassium 3.4 mmol/L (3.5-5.0)
[2019-07-06] MEDS: Spironolactone TAB* 25 MG PO SCH ×2 (08:43→08:55)
[2019-07-06] MEDS: lamoTRIgine TAB(*) 100 MG PO SCH ×3 (08:44→22:34)
[2019-07-06] MEDS: levETIRAcetam IV* 750 MG in NS 0.9% 100 ML* 100 ML IVPB SCH ×2 (08:45→22:32)
[2019-07-06] MEDS: Ramipril CAP* 5 MG PO SCH ×2 (08:46→08:54)
[2019-07-06] MEDS: Famotidine IV* 10 MG/ML 2 ML (20 mg) IV SLOW PU SCH ×2 (08:46→22:31)
--- NOTE | 2019-07-06 08:54 | PN ---
Subjective - Subjective Reason for Note: Progress Note History: She had episodes of restlessness yesterday necessitating haloperidol. Otherwise , no changes. Active Problems: Active Problems ARDS (adult respiratory distress syndrome) (Acute) J80 Acute renal failure (Acute) Altered mental state (Acute) R41.82 Pt is even more confused and agitated today compared to yesterday at my visit. Cause of her confusion is not clear. There is no evidence of infection. CT brain negative for any acute findings. ? hospital acquired delirium in the setting of a person who at baseline is mild to moderately confused (per [facility] staff) vs related to EtOH withdrawl (seems unlikely as pt has no other signs of withdrawl) vs non convulsive status (also unlikely given how verbal and active she has been). I trialed seroquel 25mg last night and reportedly she had an ok night. Given the screaming and marked agitation at this time will give haldol 2mg IV x1 now to see if she will settle and be more appropriate with her care. CHF, acute (Acute) I50.9 Pt was felt to have acute diastolic CHF/flash pulmonary edema on presenation. She required BiPAP for acute hypoxic resp failure. This is now resolved. She is now on RA. Resume lasix and spironolactone- I doubt she will take her meds at this time. Coronary artery disease (Acute) I25.10 Hypernatremia (Acute) E87.0 Hypokalemia (Acute) E87.6 Leukocytosis (Acute) D72.829 Lower respiratory tract infection (Acute) J22 Pulmonary edema (Acute) J81.1 Alcohol dependence (Chronic) F10.20 As pt is unable to tell me anything useful, it is unclear if she is still drinking. She does not appear to be withdrawling from EtOH. Anticoagulated (Chronic) Z79.01 Atrial fibrillation (Chronic) I48.91 Pt is in afib but controlled rate. Continue coreg and digoxin and coumadin. Recheck INR tomorrow. Pt refused labs this AM. Bronchiectasis (Chronic) J47.9 COPD (chronic obstructive pulmonary disease) (Chronic) J44.9 No signs of exacerbation. Stop solumedrol. Monitor respiratory status. 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 Continue keppra and lamotrigine. Keppra level sent last night just prior to her receiving her evening dose. Current Medications: Current Medications Acetaminophen (Tylenol Tab*) 650 mg PO Q4H PRN PRN Reason: FEVER/PAIN Atorvastatin Calcium (Lipitor*) 40 mg PO 1700 [facility] Last Admin: 07/05/19 18:10 Dose: 40 mg Digoxin (Lanoxin Liq* Oralsyr) 0.125 mg PO 1700 [facility] Last Admin: 07/05/19 18:10 Dose: 0.125 mg Famotidine (Pepcid Iv*) 20 mg IV SLOW PU BID [facility] Last Admin: 07/05/19 20:46 Dose: 20 mg Haloperidol Lactate (Haldol Inj Iv/Im*) 2.5 mg IV SLOW PU Q8H PRN PRN Reason: AGITATION Last Admin: 07/06/19 00:28 Dose: 2.5 mg Heparin Sodium (Porcine) (Heparin Flush Picc/Ml/Cvc(*)) 0 ml FLUSH 0600,1800 [facility] Last Admin: 07/06/19 05:07 Dose: Not Given Hydralazine HCl (Apresoline Iv*) 5 mg IV SLOW PU Q4H PRN PRN Reason: SBP > 160 Last Admin: 06/28/19 19:46 Dose: 5 mg Levetiracetam 750 mg/ Sodium (Chloride) 107.5 mls @ 410 mls/hr IVPB Q12H [facility] Last Admin: 07/05/19 20:49 Dose: 410 mls/hr Piperacillin Sod/Tazobactam (Sod 3.375 gm/ Sodium Chloride) 100 mls @ 25 mls/ hr IVPB Q8H [facility] Last Admin: 07/06/19 05:06 Dose: 25 mls/hr Potassium Chloride/Dextrose (D5w 1/4 Ns 20 Meq Kcl 1000 Ml*) 1,000 mls @ 50 mls /hr IV PER RATE [facility] Last Admin: 07/05/19 20:38 Dose: 50 mls/hr Lamotrigine (Lamictal Tab(*)) 50 mg PO BID [facility] Last Admin: 07/05/19 20:46 Dose: Not Given Levalbuterol HCl (Xopenex 0.63mg/3ml Neb*) 0.31 mg INH Q6H PRN PRN Reason: SOB/WHEEZING Last Admin: 06/25/19 21:39 Dose: 0.63 mg Methylprednisolone Sodium Succinate (Solu-Medrol 40 Mg) 20 mg IV Q8H [facility] Last Admin: 07/06/19 03:28 Dose: 20 mg Metoprolol Tartrate (Lopressor Iv*) 2.5 mg IV Q6H [facility] Last Admin: 07/06/19 03:28 Dose: 2.5 mg Miscellaneous (Ativan Pyxis Prado) 1 ea N/A .PYXIS PRADO PRN PRN Reason: PER PROTOCOL Pharmacy Consult (Zosyn Per Pharmacy*) 1 note FOLLOW UP .ZOSYN PER PHARMACY [facility] Pharmacy Profile Note (Coumadin Per Pharmacy*) 1 note FOLLOW UP .PER PHARMACY PROTOC [facility]; Protocol Ramipril (Altace Cap*) 5 mg PO DAILY [facility] Last Admin: 07/05/19 10:23 Dose: 5 mg Spironolactone (Aldactone Tab*) 12.5 mg PO DAILY [facility] Last Admin: 07/05/19 10:22 Dose: 12.5 mg Home Medications: Home Medications Medication Instructions Recorded Confirmed Type Digoxin TAB* [Lanoxin TAB*] 0.125 mg PO DAILY 11/14/17 06/23/19 History levETIRAcetam TAB* [Keppra TAB*] 750 mg PO BID tab 11/16/17 06/23/19 Rx Atorvastatin* [Lipitor 20 MG*] 20 mg PO BEDTIME 12/01/18 06/23/19 History lamoTRIgine TAB(*) [Lamictal 100 mg PO BID 12/01/18 06/23/19 History TAB(*)] Carvedilol TAB* [Coreg TAB*] 3.125 mg PO BID #60 tab 06/19/19 06/23/19 Rx Furosemide TAB* [Lasix TAB*] 20 mg PO 0800 5 Days #30 tab 06/19/19 06/23/19 Rx Levalbuterol 0.63MG/3ML NEB* 0.31 mg INH Q6H PRN #30 neb.soln 06/19/19 06/23/19 Rx [Xopenex 0.63MG/3ML NEB*] Spironolactone TAB* [Aldactone TAB 12.5 mg PO DAILY #30 tab 06/19/19 06/23/19 Rx 25 MG*] predniSONE TAB* [Deltasone 20 MG 5 mg PO DAILY #10 tab 06/19/19 06/23/19 Rx TAB*] Cephalexin 500 mg PO QID 06/23/19 06/23/19 History Warfarin TAB(*) [Coumadin TAB(*)] 0.5 mg PO DAILY@1700 06/23/19 06/23/19 History Allergies: Allergies Allergy/AdvReac Type Severity Reaction Status Date / Time No Known Allergies Allergy Verified 06/23/19 04:24 Objective - Vital Signs Vital Signs: Vital Signs 07/05/19 07/05/19 07/05/19 12:14 18:10 19:38 Temperature 99.0 F 97.3 F Pulse Rate 90 68 Respiratory 16 25 20 Rate Blood Pressure 144/85 103/63 (mmHg) O2 Sat by Pulse 96 92 Oximetry 07/05/19 07/05/19 07/05/19 20:00 20:37 22:16 Temperature Pulse Rate Respiratory 28 28 22 Rate Blood Pressure (mmHg) O2 Sat by Pulse Oximetry 07/06/19 07/06/19 07/06/19 00:26 02:00 03:27 Temperature 98.2 F Pulse Rate 88 Respiratory 17 30 20 Rate Blood Pressure 154/69 (mmHg) O2 Sat by Pulse 90 Oximetry 07/06/19 07/06/19 07/06/19 03:53 03:55 04:49 Temperature 97.2 F Pulse Rate 85 Respiratory 22 22 20 Rate Blood Pressure 128/59 (mmHg) O2 Sat by Pulse 97 Oximetry 07/06/19 07/06/19 05:46 08:31 Temperature Pulse Rate Respiratory 20 18 Rate Blood Pressure (mmHg) O2 Sat by Pulse Oximetry - Intake and Output Intake and Output: Intake & Output 07/03/19 07/04/19 07/05/19 07/06/19 11:59 11:59 11:59 11:59 Intake Total 1835 537.5 520 813 Output Total 1500 2725 1150 350 Balance 335 -2187.5 -630 463 Weight 106 lb 8 oz 104 lb 11.2 oz 110 lb 4.8 oz 110 lb Intake: IV Fluids 1347 257.5 220 300 ABX - ZOSYN 150 200 D5W 970 D5W 1/2 NS 20 meq KCL 377 Keppra 107.5 100 LR 220 IVPB 210 250 ABX - CEFEPIME 56 50 ABX - CLINDAMYCIN 54 ABX - ZOSYN 50 Keppra 100 150 Medicated IV 513 D5 1/4 20 K+ 513 Oral 278 30 300 0 Output: Joya 1500 2725 1150 350 Other: Estimated Void Medium # Bowel Movements 1 0 Estimated Stool Amount Medium ADLs: Meal Record Start: 06/23/19 11: 08 Freq: 09,13,18 Status: Complete Protocol: Created 06/23/19 11:08 System (Rec: 06/23/19 11:08 System [facility]-C0) ADLs: Meal Record Start: 06/23/19 15: 24 Freq: DAILY@0900,1400,1800 Status: Active Protocol: Created 06/23/19 15:24 [id number] (Rec: 06/23/19 15:24 GRF3112 ICU-C25) Document 06/23/19 18:00 ZAA1967 (Rec: 06/23/19 20:33 CHU9983 TELE-C07) Document 06/24/19 09:00 PVI2900 (Rec: 06/24/19 10:22 SVY7941 TELE-C03) Document 06/24/19 18:00 FQU3432 (Rec: 06/24/19 18:15 UAZ6670 TELE-C07) Document 06/25/19 08:58 VZA4983 (Rec: 06/25/19 08:59 KJF7248 TELE-M11) Document 06/25/19 13:57 YVW8781 (Rec: 06/25/19 13:59 JWG9729 TELE-M11) Document 06/25/19 18:00 QFN9222 (Rec: 06/25/19 22:40 ZBB8382 TELE-C05) Document 06/26/19 10:00 KZL2680 (Rec: 06/26/19 11:06 PUJ4015 ICU-C15) Document 06/26/19 18:00 PFD5945 (Rec: 06/26/19 18:05 NDV7014 ICU-L03) Document 06/28/19 11:23 BUB5382 (Rec: 06/28/19 11:23 TKL8940 TELE-M21) Document 06/28/19 13:25 BEY5298 (Rec: 06/28/19 13:25 DHU8277 TELE-M21) Document 06/28/19 21:48 UZS5372 (Rec: 06/28/19 21:48 MSS6970 TELE-C11) Document 06/29/19 04:22 QBZ3435 (Rec: 06/29/19 04:23 XHP9063 TELE-M21) Document 06/29/19 05:29 SFN6529 (Rec: 06/29/19 05:29 TIZ5513 TELE-M21) Document 06/30/19 18:13 TGB9383 (Rec: 06/30/19 18:13 HQY6108 TELE-M21) Document 07/01/19 09:50 GNN2687 (Rec: 07/01/19 09:50 EHQ2984 TELE-M21) Document 07/01/19 13:21 WRA0359 (Rec: 07/01/19 13:21 IFS3480 TELE-M21) Document 07/01/19 19:39 SQV8293 (Rec: 07/01/19 19:39 LEX5241 TELE-M21) Document 07/02/19 14:00 BCT8955 (Rec: 07/02/19 14:47 LZO4120 TELE-C05) Document 07/02/19 18:00 WHF3124 (Rec: 07/02/19 18:28 CLM2060 TELE-M21) Document 07/03/19 09:00 YMB7235 (Rec: 07/03/19 10:47 MQU2322 TELE-C01) Document 07/03/19 12:58 CYC0131 (Rec: 07/03/19 12:58 WKI1325 TELE-C01) Document 07/03/19 18:00 BIO3604 (Rec: 07/03/19 20:00 EFO4834 TELE-C08) Document 07/04/19 09:00 IDK8349 (Rec: 07/04/19 09:37 YXN6461 TELE-M07) Document 07/04/19 12:44 GKG6913 (Rec: 07/04/19 12:44 JVQ7656 TELE-M07) Document 07/04/19 18:00 LYO2631 (Rec: 07/04/19 18:07 HYB0022 TELE-M07) Document 07/05/19 09:00 STS3529 (Rec: 07/05/19 14:02 JSY0332 TELE-C11) Document 07/05/19 14:00 QYF6322 (Rec: 07/05/19 14:04 HCX6638 TELE-C11) Document 07/05/19 18:00 ALE1505 (Rec: 07/05/19 18:21 FON5555 TELE-M15) ADLs: Meal Record Start: 06/25/19 22: 26 Freq: Status: Complete Protocol: Created 06/25/19 22:26 KMT9796 (Rec: 06/25/19 22:26 GDR4308 ICU-C25) ADLs: Meal Record Start: 06/28/19 12: 17 Freq: Status: Cancelled Protocol: Created 06/28/19 12:17 AHJ0493 (Rec: 06/28/19 12:17 HFJ7690 TELE-M21) Intake and Output Start: 06/23/19 04: 23 Freq: Status: Inactive Protocol: Created 06/23/19 04:23 System (Rec: 06/23/19 04:23 System EDRM-C10) Intake and Output Start: 06/23/19 11: 08 Freq: Q1HR Status: Inactive Protocol: Created 06/23/19 11:08 System (Rec: 06/23/19 11:08 System PMRU-C05) Document 06/23/19 14:59 JKH5623 (Rec: 06/23/19 15:00 ZAG3581 ICU-C25) Intake and Output Start: 06/23/19 15: 24 Freq: DAILY@0600,1400,2200 Status: Inactive Protocol: Document 06/23/19 12:00 BMJ9681 (Rec: 06/23/19 15:26 XYT3464 ICU-C25) Created 06/23/19 15:24 CLQ5534 (Rec: 06/23/19 15:24 RHY2739 ICU-C25) Document 07/26/19 21:29 IDT0530 (Rec: 06/23/19 21:30 AWN7048 TELE-C07) Document 06/24/19 06:00 HTA4358 (Rec: 06/24/19 06:06 SUJ5076 TELE-C09) Document 06/24/19 22:00 CWR6432 (Rec: 06/24/19 22:36 VZM5860 TELE-C07) Document 06/25/19 05:51 RNQ5222 (Rec: 06/25/19 05:52 XXY8896 TELE-C07) Document 06/25/19 12:11 NFQ7271 (Rec: 06/25/19 12:12 KHF2215 TELE-M11) Intake and Output Start: 06/25/19 22: 26 Freq: 06,,0 Status: Active Protocol: Created 06/25/19 22:26 DAA3550 (Rec: 06/25/19 22:26 WWT8702 ICU-C25) Document 06/25/19 23:00 CUU6099 (Rec: 06/25/19 23:05 ECT8430 ICU-C25) Document 06/25/19 23:28 AHQ9665 (Rec: 06/25/19 23:30 HBS6359 ICU-C16) Document 06/25/19 23:47 RSJ6685 (Rec: 06/25/19 23:47 RBH7258 ICU-C25) Document 06/26/19 01:00 ZLJ7575 (Rec: 06/26/19 02:24 SKN4651 ICU-C25) Document 06/26/19 02:00 FQY0352 (Rec: 06/26/19 02:24 BGG7633 ICU-C25) Document 06/26/19 03:00 APB9583 (Rec: 06/26/19 03:21 CTB7743 ICU-C25) Document 06/26/19 04:00 LQA0941 (Rec: 06/26/19 04:13 XEU5305 ICU-C25) Document 06/26/19 05:00 EGJ9516 (Rec: 06/26/19 05:01 QXR5928 ICU-C25) Document 06/26/19 06:00 BNK6176 (Rec: 06/26/19 06:05 FDS0488 ICU-C25) Document 06/26/19 07:00 YSP3167 (Rec: 06/26/19 07:58 ONG0963 ICU-C15) Document 06/26/19 07:58 WIG0440 (Rec: 06/26/19 07:58 QMB2499 ICU-C15) Document 06/26/19 09:00 FQA1489 (Rec: 06/26/19 09:41 XOQ5394 ICU-C15) Document 06/26/19 10:00 CWY1181 (Rec: 06/26/19 11:07 MEL1639 ICU-C15) Document 06/26/19 11:00 VDG2098 (Rec: 06/26/19 11:07 ZIN6045 ICU-C15) Document 06/26/19 12:00 YDP7088 (Rec: 06/26/19 12:14 LIR7894 ICU-C15) Document 06/26/19 13:00 MVW5763 (Rec: 06/26/19 13:22 YYH9689 ICU-C15) Document 06/26/19 14:00 XZO5226 (Rec: 06/26/19 17:56 CKE7667 ICU-L03) Document 06/26/19 15:00 PKU8953 (Rec: 06/26/19 17:57 KQV6488 ICU-L03) Document 06/26/19 16:00 AXA2286 (Rec: 06/26/19 17:57 RWT4338 ICU-L03) Document 06/26/19 17:00 IBU3255 (Rec: 06/26/19 17:57 ZNK7012 ICU-L03) Document 06/26/19 17:57 RAE8749 (Rec: 06/26/19 17:57 IZA5069 ICU-L03) Document 06/26/19 19:00 UWN8985 (Rec: 06/26/19 19:08 KKY0499 ISDEMO-M03 ) Document 06/26/19 20:00 BCS7327 (Rec: 06/26/19 20:05 CRN3531 ICU-C15) Document 06/26/19 21:00 WHK2403 (Rec: 06/26/19 22:09 RXA4186 ISDEMO-M03 ) Document 06/26/19 22:00 JNX2075 (Rec: 06/26/19 22:09 CEC3569 ISDEMO-M03 ) Document 06/26/19 23:00 WMJ7221 (Rec: 06/26/19 23:20 YFD2983 ICU-C15) Document 06/26/19 23:59 QYC3045 (Rec: 06/26/19 23:59 HYV0145 ICU-C15) Document 06/27/19 01:00 KEL7307 (Rec: 06/27/19 01:08 OJK3058 ICU-C15) Document 06/27/19 02:00 CKU4447 (Rec: 06/27/19 02:03 QVX1831 ICU-C15) Document 06/27/19 03:00 LHS5861 (Rec: 06/27/19 05:10 XAP1933 ICU-C15) Document 06/27/19 04:00 RPR3544 (Rec: 06/27/19 05:10 ZGG3326 ICU-C15) Document 06/27/19 06:00 AMK0807 (Rec: 06/27/19 06:02 KPZ2932 ICU-C15) Document 06/27/19 08:00 LFO6378 (Rec: 06/27/19 08:07 NOV4096 ICU-C15) Document 06/27/19 09:31 VPT9091 (Rec: 06/27/19 09:31 HZO0866 ICU-C15) Document 06/27/19 11:00 ADK9846 (Rec: 06/27/19 11:10 LLP0427 ICU-C15) Document 06/27/19 13:45 ZNH2043 (Rec: 06/27/19 13:56 ZUB6523 ICU-C15) Document 07/02/19 07:36 HRV9603 (Rec: 07/02/19 07:36 DSQ3901 TELE-M20) Document 07/02/19 14:00 LOC9073 (Rec: 07/02/19 14:47 LCK5513 TELE-C05) Document 07/02/19 15:34 NDY0760 (Rec: 07/02/19 15:34 FUS8318 TELE-M20) Document 07/02/19 21:53 URK7352 (Rec: 07/02/19 21:53 WCY7171 TELE-M21) Document 07/03/19 06:00 KHD7481 (Rec: 07/03/19 07:27 RAG6305 TELE-C10) Document 07/03/19 14:00 QRU2179 (Rec: 07/03/19 14:58 NCQ5269 TELE-C01) Document 07/03/19 21:47 WCH3727 (Rec: 07/03/19 21:47 TFD4314 TELE-C08) Document 07/04/19 03:30 XNL2677 (Rec: 07/04/19 07:00 HVT3081 MED-M16) Document 07/04/19 06:00 APF0927 (Rec: 07/04/19 06:04 IDV3895 TELE-C08) Document 07/04/19 13:35 LHH9960 (Rec: 07/04/19 13:36 IEX4895 TELE-M07) Document 07/04/19 21:32 CAA7361 (Rec: 07/04/19 21:37 OYG2233 TELE-M07) Document 07/05/19 06:00 SAP6717 (Rec: 07/05/19 07:03 YOA2343 TELE-C10) Document 07/05/19 14:00 XPA7994 (Rec: 07/05/19 14:30 MOT9952 TELE-C11) Document 07/05/19 22:00 ZBT0849 (Rec: 07/05/19 23:26 OSD9049 TELE-C33) Document 07/06/19 05:48 IQY0636 (Rec: 07/06/19 05:49 RWX1515 TELE-M13) - Physical Exam General Physical Exam Comment: cool extremities, she is rousable, but not conversational, not following one stage commands General: No Cyanosis, No Anemia, No Clubbing Lungs and Chest: Yes: Chest Expansion Full, Chest Expansion Symetrica, Percussion Note Resonant, Crackles. No: Vessicular Breath Sounds, Wheezes, Respiratory Distress, Use of Accessory Muscles Heart Rate and Rhythm: Irregular Additional Cardiovascular: Yes: Normal Heart Sounds, Heart Murmur. No: Pedal Edema Abdominal Exam: Yes: Soft, Bowel Sounds Present. No: Distention, Abdominal Tenderness Results - Results Lab Results: Laboratory Results - last 24 hr 07/03/19 07/06/19 07/06/19 15:20 05:46 05:46 INR (Anticoag Therapy) 1.55 H Sodium 149 H Potassium 3.4 L Chloride 116 H Carbon Dioxide 25 Anion Gap 8 BUN 33 H Creatinine 1.07 H Est GFR ( Amer) 59.9 Est GFR (Non-Af Amer) 49.5 BUN/Creatinine Ratio 30.8 H Glucose 189 H Calcium 8.1 L C-Reactive Protein 36.87 H Lamotrigine 8.0 Levetiracetam 53.3 H Assessment - Problem List Assessment: Patient Problems ARDS (adult respiratory distress syndrome) (Acute) Acute renal failure (Acute) Altered mental state (Acute) CHF, acute (Acute) Coronary artery disease (Acute) Hypernatremia (Acute) Hypokalemia (Acute) Leukocytosis (Acute) Lower respiratory tract infection (Acute) Pulmonary edema (Acute) Alcohol dependence (Chronic) Anticoagulated (Chronic) Atrial fibrillation (Chronic) Bronchiectasis (Chronic) COPD (chronic obstructive pulmonary disease) (Chronic) DVT prophylaxis (Chronic) 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 She is tolerating the high dose methylprednisolone. Otherwise, appears stable. Acute renal failure (Acute) her BUN and Cr are stable Altered mental state (Acute) Her levatiracetam levels were high - I will hold a dose and move to oral if possible. This may account for some of her encephalopathy CHF, acute (Acute) This may be a component of her respiratory failure Hypernatremia (Acute) ongoing Hypokalemia (Acute) ongoing Leukocytosis (Acute secondary to steroids Anticoagulated (Chronic) Her INR has reversed - to restart warfarin at a lower dose. 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 However, it looks to me as if the inflammation/infection is improving. I will maintain supportive therapy Phone call: Kevin Patel's phone was busy. I will try later.
[2019-07-06] MEDS: 1/4 NS IVPB SCH (10:40)
[2019-07-06] MEDS: POTASSIUM CHLORIDE IVPB SCH (10:40)
[2019-07-06] MEDS: D5W IVPB SCH (10:40)
[2019-07-06] MEDS ORDERED: Furosemide IV* 10 MG/ML 2 ML VIAL (20 MG) IV ONE (13:00)
[2019-07-06] MEDS: Atorvastatin* 40 MG TAB PO SCH (15:57)
[2019-07-06] MEDS ORDERED: D5W 1/4 NS 20 Meq KCL 1000 ML* 1,000 ML IV SCH (17:00)
[2019-07-06] MEDS ORDERED: Warfarin TAB(*) 1 MG PO ONE (17:00)
[2019-07-06] MEDS: DIGOXIN PO SCH (17:08)
[2019-07-06] MEDS: ORALSYR PO SCH (17:08)
[2019-07-07] MEDS: Metoprolol Tartrate IV* 1 MG/ML 5 ML VIAL IV SCH ×4 (04:24→23:05)
[2019-07-07] MEDS: methylPREDNISolone SOD 40 MG* 1 ML VIAL IV SCH ×3 (04:24→20:28)
[2019-07-07] MEDS: D5W IVPB SCH (04:29)
[2019-07-07] MEDS: 1/4 NS IVPB SCH (04:29)
[2019-07-07] MEDS: POTASSIUM CHLORIDE IVPB SCH (04:29)
[2019-07-07] MEDS: ZOSYN 3.375 GM Q8H per EXTENDED INFUSION IVPB SCH ×6 (05:20→23:29)
[2019-07-07 05:34] LABS: Hematocrit 26 % (35-47); Hemoglobin 8.2 g/dL (12.0-16.0); Mean Platelet Volume 9.4 fL (7.4-10.4); Platelet Count 137 10^3/uL (150-450)
[2019-07-07 05:46] LABS: INR 1.39 (0.82-1.09)
[2019-07-07 05:56] LABS: BUN/Creatinine Ratio 29.6 (8-20); C Reactive Protein 24.55 mg/L (<8.01); Calcium 8.4 mg/dL (8.6-10.3); EGFR African American 59.2 (>60); EGFR Non-African American 48.9 (>60); Potassium 4.4 mmol/L (3.5-5.0)
--- NOTE | 2019-07-07 07:21 | PN ---
Subjective - Subjective Reason for Note: Progress Note History: I could wake her, but she was not communicative. She followed single step commands intermittently. Active Problems: Active Problems ARDS (adult respiratory distress syndrome) (Acute) J80 Acute renal failure (Acute) Altered mental state (Acute) R41.82 Pt is even more confused and agitated today compared to yesterday at my visit. Cause of her confusion is not clear. There is no evidence of infection. CT brain negative for any acute findings. ? hospital acquired delirium in the setting of a person who at baseline is mild to moderately confused (per [facility] staff) vs related to EtOH withdrawl (seems unlikely as pt has no other signs of withdrawl) vs non convulsive status (also unlikely given how verbal and active she has been). I trialed seroquel 25mg last night and reportedly she had an ok night. Given the screaming and marked agitation at this time will give haldol 2mg IV x1 now to see if she will settle and be more appropriate with her care. Anemia (Acute) D64.9 CHF, acute (Acute) I50.9 Pt was felt to have acute diastolic CHF/flash pulmonary edema on presenation. She required BiPAP for acute hypoxic resp failure. This is now resolved. She is now on RA. Resume lasix and spironolactone- I doubt she will take her meds at this time. Coronary artery disease (Acute) I25.10 Hypernatremia (Acute) E87.0 Hypokalemia (Acute) E87.6 Leukocytosis (Acute) D72.829 Lower respiratory tract infection (Acute) J22 Pulmonary edema (Acute) J81.1 Steroid-induced diabetes (Acute) Alcohol dependence (Chronic) F10.20 As pt is unable to tell me anything useful, it is unclear if she is still drinking. She does not appear to be withdrawling from EtOH. Anticoagulated (Chronic) Z79.01 Atrial fibrillation (Chronic) I48.91 Pt is in afib but controlled rate. Continue coreg and digoxin and coumadin. Recheck INR tomorrow. Pt refused labs this AM. Bronchiectasis (Chronic) J47.9 COPD (chronic obstructive pulmonary disease) (Chronic) J44.9 No signs of exacerbation. Stop solumedrol. Monitor respiratory status. 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 Continue keppra and lamotrigine. Keppra level sent last night just prior to her receiving her evening dose. Current Medications: Current Medications Acetaminophen (Tylenol Tab*) 650 mg PO Q4H PRN PRN Reason: FEVER/PAIN Atorvastatin Calcium (Lipitor*) 40 mg PO 1700 [facility] Last Admin: 07/06/19 15:57 Dose: Not Given Digoxin (Lanoxin Liq* Oralsyr) 0.125 mg PO 1700 [facility] Last Admin: 07/06/19 17:08 Dose: Not Given Famotidine (Pepcid Iv*) 20 mg IV SLOW PU BID [facility] Last Admin: 07/06/19 22:31 Dose: 20 mg Haloperidol Lactate (Haldol Inj Iv/Im*) 2.5 mg IV SLOW PU Q8H PRN PRN Reason: AGITATION Last Admin: 07/06/19 22:09 Dose: 2.5 mg Heparin Sodium (Porcine) (Heparin Flush Picc/Ml/Cvc(*)) 0 ml FLUSH 0600,1800 [facility] Last Admin: 07/07/19 05:01 Dose: Not Given Hydralazine HCl (Apresoline Iv*) 5 mg IV SLOW PU Q4H PRN PRN Reason: SBP > 160 Last Admin: 06/28/19 19:46 Dose: 5 mg Levetiracetam 750 mg/ Sodium (Chloride) 107.5 mls @ 410 mls/hr IVPB Q12H [facility] Last Admin: 07/06/19 22:32 Dose: 410 mls/hr Piperacillin Sod/Tazobactam (Sod 3.375 gm/ Sodium Chloride) 100 mls @ 25 mls/ hr IVPB Q8H [facility] Last Admin: 07/07/19 05:20 Dose: 25 mls/hr Potassium Chloride 40 meq/ (Dextrose/Sodium Chloride) 1,020 mls @ 25 mls/hr IVPB Q20H [facility] Last Admin: 07/07/19 04:29 Dose: 25 mls/hr Lamotrigine (Lamictal Tab(*)) 50 mg PO BID [facility] Last Admin: 07/06/19 22:34 Dose: Not Given Levalbuterol HCl (Xopenex 0.63mg/3ml Neb*) 0.31 mg INH Q6H PRN PRN Reason: SOB/WHEEZING Last Admin: 06/25/19 21:39 Dose: 0.63 mg Methylprednisolone Sodium Succinate (Solu-Medrol 40 Mg) 20 mg IV Q8H [facility] Last Admin: 07/07/19 04:24 Dose: 20 mg Metoprolol Tartrate (Lopressor Iv*) 2.5 mg IV Q6H [facility] Last Admin: 07/07/19 04:24 Dose: 2.5 mg Miscellaneous (Ativan Pyxis Prado) 1 ea N/A .PYXIS PRADO PRN PRN Reason: PER PROTOCOL Pharmacy Consult (Zosyn Per Pharmacy*) 1 note FOLLOW UP .ZOSYN PER PHARMACY [facility] Pharmacy Profile Note (Coumadin Per Pharmacy*) 1 note FOLLOW UP .PER PHARMACY PROTOC [facility]; Protocol Ramipril (Altace Cap*) 5 mg PO DAILY [facility] Last Admin: 07/06/19 08:54 Dose: Not Given Spironolactone (Aldactone Tab*) 12.5 mg PO DAILY [facility] Last Admin: 07/06/19 08:55 Dose: Not Given Home Medications: Home Medications Medication Instructions Recorded Confirmed Type Digoxin TAB* [Lanoxin TAB*] 0.125 mg PO DAILY 11/14/17 06/23/19 History levETIRAcetam TAB* [Keppra TAB*] 750 mg PO BID tab 11/16/17 06/23/19 Rx Atorvastatin* [Lipitor 20 MG*] 20 mg PO BEDTIME 12/01/18 06/23/19 History lamoTRIgine TAB(*) [Lamictal 100 mg PO BID 12/01/18 06/23/19 History TAB(*)] Carvedilol TAB* [Coreg TAB*] 3.125 mg PO BID #60 tab 06/19/19 06/23/19 Rx Furosemide TAB* [Lasix TAB*] 20 mg PO 0800 5 Days #30 tab 06/19/19 06/23/19 Rx Levalbuterol 0.63MG/3ML NEB* 0.31 mg INH Q6H PRN #30 neb.soln 06/19/19 06/23/19 Rx [Xopenex 0.63MG/3ML NEB*] Spironolactone TAB* [Aldactone TAB 12.5 mg PO DAILY #30 tab 06/19/19 06/23/19 Rx 25 MG*] predniSONE TAB* [Deltasone 20 MG 5 mg PO DAILY #10 tab 06/19/19 06/23/19 Rx TAB*] Cephalexin 500 mg PO QID 06/23/19 06/23/19 History Warfarin TAB(*) [Coumadin TAB(*)] 0.5 mg PO DAILY@1700 06/23/19 06/23/19 History Allergies: Allergies Allergy/AdvReac Type Severity Reaction Status Date / Time No Known Allergies Allergy Verified 06/23/19 04:24 Objective - Vital Signs Vital Signs: Vital Signs 07/06/19 07/06/19 07/06/19 08:00 08:31 08:45 Temperature 97.4 F Pulse Rate 98 Respiratory 20 18 16 Rate Blood Pressure 141/62 (mmHg) O2 Sat by Pulse 100 Oximetry 07/06/19 07/06/19 07/06/19 11:23 15:45 20:00 Temperature 97 F 97.7 F 98.4 F Pulse Rate 67 76 92 Respiratory 20 20 20 Rate Blood Pressure 114/56 148/67 142/87 (mmHg) O2 Sat by Pulse 98 96 87 Oximetry 07/07/19 07/07/19 07/07/19 00:00 01:30 04:11 Temperature 97.3 F Pulse Rate 66 77 Respiratory 20 26 18 Rate Blood Pressure 153/69 154/62 (mmHg) O2 Sat by Pulse 96 96 Oximetry 07/07/19 04:31 Temperature 97.4 F Pulse Rate Respiratory Rate Blood Pressure (mmHg) O2 Sat by Pulse Oximetry - Intake and Output Intake and Output: Intake & Output 07/04/19 07/05/19 07/06/19 07/07/19 11:59 11:59 11:59 11:59 Intake Total 537.5 032 450 4124 Output Total 2725 1150 350 435 Balance -2187.5 -630 463 621 Weight 104 lb 11.2 oz 110 lb 4.8 oz 110 lb 105 lb 12.8 oz Intake: IV Fluids 257.5 220 300 892 ABX - ZOSYN 150 200 294 D5W 1/4 NS 40mEq K 593 Keppra 107.5 100 LR 220 NS (0.9%) 5 IVPB 250 164 ABX - CEFEPIME 50 ABX - ZOSYN 50 164 Keppra 150 Medicated IV 513 D5 1/4 20 K+ 513 Oral 30 300 0 0 Output: Urine 0 Joya 2725 1150 350 435 Other: # Bowel Movements 0 ADLs: Meal Record Start: 06/23/19 11: 08 Freq: 09,13,18 Status: Complete Protocol: Created 06/23/19 11:08 System (Rec: 06/23/19 11:08 System [facility]-C05) ADLs: Meal Record Start: 06/23/19 15: 24 Freq: DAILY@0900,1400,1800 Status: Active Protocol: Created 06/23/19 15:24 [id number] (Rec: 06/23/19 15:24 UDV3880 ICU-C25) Document 06/23/19 18:00 VRZ3692 (Rec: 06/23/19 20:33 PXA7553 TELE-C07) Document 06/24/19 09:00 EHF2996 (Rec: 06/24/19 10:22 QBD2279 TELE-C03) Document 06/24/19 18:00 CMK3912 (Rec: 06/24/19 18:15 OVM9314 TELE-C07) Document 06/25/19 08:58 FBO7753 (Rec: 06/25/19 08:59 IRJ5119 TELE-M11) Document 06/25/19 13:57 BBS5465 (Rec: 06/25/19 13:59 AVC2694 TELE-M11) Document 06/25/19 18:00 YGL6519 (Rec: 06/25/19 22:40 XOT5631 TELE-C05) Document 06/26/19 10:00 DKL2242 (Rec: 06/26/19 11:06 JBW8205 ICU-C15) Document 06/26/19 18:00 JCD8692 (Rec: 06/26/19 18:05 PNS2861 ICU-L03) Document 06/28/19 11:23 SVL4757 (Rec: 06/28/19 11:23 NKU3374 TELE-M21) Document 06/28/19 13:25 PJA7803 (Rec: 06/28/19 13:25 ZBF7390 TELE-M21) Document 06/28/19 21:48 KCT0950 (Rec: 06/28/19 21:48 UIX5818 TELE-C11) Document 06/29/19 04:22 EBA1909 (Rec: 06/29/19 04:23 NZA2282 TELE-M21) Document 06/29/19 05:29 LPL8550 (Rec: 06/29/19 05:29 LED7255 TELE-M21) Document 06/30/19 18:13 BOB4486 (Rec: 06/30/19 18:13 JRR1667 TELE-M21) Document 07/01/19 09:50 HYN4625 (Rec: 07/01/19 09:50 LBP4414 TELE-M21) Document 07/01/19 13:21 VIK5269 (Rec: 07/01/19 13:21 XVF3821 TELE-M21) Document 07/01/19 19:39 RWA7582 (Rec: 07/01/19 19:39 IPX2149 TELE-M21) Document 07/02/19 14:00 BDX7827 (Rec: 07/02/19 14:47 FTX2144 TELE-C05) Document 07/02/19 18:00 LXU2721 (Rec: 07/02/19 18:28 CWB6147 TELE-M21) Document 07/03/19 09:00 BWU3937 (Rec: 07/03/19 10:47 IHJ2165 TELE-C01) Document 07/03/19 12:58 FSK4672 (Rec: 07/03/19 12:58 IXB6715 TELE-C01) Document 07/03/19 18:00 GTF4925 (Rec: 07/03/19 20:00 TDX3610 TELE-C08) Document 07/04/19 09:00 ZWR3778 (Rec: 07/04/19 09:37 WLO9818 TELE-M07) Document 07/04/19 12:44 PAQ5057 (Rec: 07/04/19 12:44 UQL9247 TELE-M07) Document 07/04/19 18:00 WUC0956 (Rec: 07/04/19 18:07 BRO8085 TELE-M07) Document 07/05/19 09:00 QUQ7065 (Rec: 07/05/19 14:02 MSK9768 TELE-C11) Document 07/05/19 14:00 EZC9951 (Rec: 07/05/19 14:04 XXJ9381 TELE-C11) Document 07/05/19 18:00 TVN1768 (Rec: 07/05/19 18:21 JPQ1129 TELE-M15) Document 07/06/19 09:00 BRG3650 (Rec: 07/06/19 12:05 REZ5178 TELE-C08) Document 07/06/19 14:00 JIV2221 (Rec: 07/06/19 14:43 CBI5492 TELE-C03) Document 07/06/19 18:00 EMT2728 (Rec: 07/06/19 22:02 LPP8808 TELE-C09) ADLs: Meal Record Start: 06/25/19 22: 26 Freq: Status: Complete Protocol: Created 06/25/19 22:26 CCV6664 (Rec: 06/25/19 22:26 NEW5076 ICU-C25) ADLs: Meal Record Start: 06/28/19 12: 17 Freq: Status: Cancelled Protocol: Created 06/28/19 12:17 GSK7380 (Rec: 06/28/19 12:17 JIE0815 TELE-M21) Intake and Output Start: 06/23/19 04: 23 Freq: Status: Inactive Protocol: Created 06/23/19 04:23 System (Rec: 06/23/19 04:23 System EDRM-C10) Intake and Output Start: 06/23/19 11: 08 Freq: Q1HR Status: Inactive Protocol: Created 06/23/19 11:08 System (Rec: 06/23/19 11:08 System PMRU-C05) Document 06/23/19 14:59 XJA6108 (Rec: 06/23/19 15:00 FHG6108 ICU-C25) Intake and Output Start: 06/23/19 15: 24 Freq: DAILY@0600,1400,2200 Status: Inactive Protocol: Document 06/23/19 12:00 TZT8054 (Rec: 06/23/19 15:26 YJE0950 ICU-C25) Created 06/23/19 15:24 XBN8828 (Rec: 06/23/19 15:24 VQM2426 ICU-C25) Document 06/23/19 21:29 PCZ3976 (Rec: 06/23/19 21:30 UCG0384 TELE-C07) Document 06/24/19 06:00 WXE3816 (Rec: 06/24/19 06:06 UKO7727 TELE-C09) Document 06/24/19 22:00 RLD1617 (Rec: 06/24/19 22:36 HXQ5227 TELE-C07) Document 06/25/19 05:51 FNX0468 (Rec: 06/25/19 05:52 DMY4734 TELE-C07) Document 06/25/19 12:11 HTK0848 (Rec: 06/25/19 12:12 TEM3834 TELE-M11) Intake and Output Start: 06/25/19 22: 26 Freq: 06,14,2200 Status: Active Protocol: Created 06/25/19 22:26 MYZ1092 (Rec: 06/25/19 22:26 MAQ5491 ICU-C25) Document 06/25/19 23:00 JQZ7116 (Rec: 06/25/19 23:05 PMW5577 ICU-C25) Document 06/25/19 23:28 RQF1009 (Rec: 06/25/19 23:30 XQO0249 ICU-C16) Document 06/25/19 23:47 NJT3112 (Rec: 06/25/19 23:47 KUK5640 ICU-C25) Document 06/26/19 01:00 GWZ6464 (Rec: 06/26/19 02:24 FQL4861 ICU-C25) Document 06/26/19 02:00 FFV2671 (Rec: 06/26/19 02:24 EQT6671 ICU-C25) Document 06/26/19 03:00 DNK9940 (Rec: 06/26/19 03:21 ULJ5895 ICU-C25) Document 06/26/19 04:00 YWR8001 (Rec: 06/26/19 04:13 VUO6899 ICU-C25) Document 06/26/19 05:00 PZQ2526 (Rec: 06/26/19 05:01 AMP2545 ICU-C25) Document 06/26/19 06:00 ONV8023 (Rec: 06/26/19 06:05 MUM6107 ICU-C25) Document 06/26/19 07:00 BHI9935 (Rec: 06/26/19 07:58 PHZ9783 ICU-C15) Document 06/26/19 07:58 JXD3053 (Rec: 06/26/19 07:58 TFP0360 ICU-C15) Document 06/26/19 09:00 FLZ9532 (Rec: 06/26/19 09:41 ADW7450 ICU-C15) Document 06/26/19 10:00 CCC0516 (Rec: 06/26/19 11:07 EBL4394 ICU-C15) Document 06/26/19 11:00 HZR7522 (Rec: 06/26/19 11:07 BPT0091 ICU-C15) Document 06/26/19 12:00 FBE4369 (Rec: 06/26/19 12:14 FHC0609 ICU-C15) Document 06/26/19 13:00 LPD8862 (Rec: 06/26/19 13:22 JKH3871 ICU-C15) Document 06/26/19 14:00 EWD5106 (Rec: 06/26/19 17:56 JRQ9719 ICU-L03) Document 06/26/19 15:00 EHZ5268 (Rec: 06/26/19 17:57 XRZ4899 ICU-L03) Document 06/26/19 16:00 ILX1361 (Rec: 06/26/19 17:57 DSS2313 ICU-L03) Document 06/26/19 17:00 OJO8095 (Rec: 06/26/19 17:57 SZM8324 ICU-L03) Document 06/26/19 17:57 GTE5185 (Rec: 06/26/19 17:57 NEI5160 ICU-L03) Document 06/26/19 19:00 OKV6940 (Rec: 06/26/19 19:08 JOZ9873 [facility]-M03 ) Document 06/26/19 20:00 PMN2945 (Rec: 06/26/19 20:05 TMR4665 ICU-C15) Document 06/26/19 21:00 CCV0046 (Rec: 06/26/19 22:09 CSB0138 ISDEMO-M03 ) Document 06/26/19 22:00 FRR4258 (Rec: 06/26/19 22:09 AXF5253 ISDEMO-M03 ) Document 06/26/19 23:00 VOS9446 (Rec: 06/26/19 23:20 VZC6172 ICU-C15) Document 06/26/19 23:59 EBW9562 (Rec: 06/26/19 23:59 FTK7092 ICU-C15) Document 06/27/19 01:00 XAW6750 (Rec: 06/27/19 01:08 KOH0026 ICU-C15) Document 06/27/19 02:00 VVR9900 (Rec: 06/27/19 02:03 IKL7776 ICU-C15) Document 06/27/19 03:00 ORO8193 (Rec: 06/27/19 05:10 VJR5661 ICU-C15) Document 06/27/19 04:00 UVO0523 (Rec: 06/27/19 05:10 MJE9381 ICU-C15) Document 06/27/19 06:00 LTT0349 (Rec: 06/27/19 06:02 DBF3660 ICU-C15) Document 06/27/19 08:00 LQK9470 (Rec: 06/27/19 08:07 AGN6789 ICU-C15) Document 06/27/19 09:31 MJX5993 (Rec: 06/27/19 09:31 YVB3779 ICU-C15) Document 06/27/19 11:00 WUB4940 (Rec: 06/27/19 11:10 DWN9121 ICU-C15) Document 06/27/19 13:45 ESJ8156 (Rec: 06/27/19 13:56 FET8733 ICU-C15) Document 07/02/19 07:36 UJC9557 (Rec: 07/02/19 07:36 TXE4592 TELE-M20) Document 07/02/19 14:00 YVF7338 (Rec: 07/02/19 14:47 GCF5610 TELE-C05) Document 07/02/19 15:34 THQ5784 (Rec: 07/02/19 15:34 EHH0322 TELE-M20) Document 07/02/19 21:53 IUV8694 (Rec: 07/02/19 21:53 QHA0141 TELE-M21) Document 07/03/19 06:00 BTJ0034 (Rec: 07/03/19 07:27 ESG8315 TELE-C10) Document 07/03/19 14:00 IBZ1044 (Rec: 07/03/19 14:58 EIC5491 TELE-C01) Document 07/03/19 21:47 YRD7259 (Rec: 07/03/19 21:47 TUT4292 TELE-C08) Document 07/04/19 03:30 FOB2653 (Rec: 07/04/19 07:00 VTY8846 MED-M16) Document 07/04/19 06:00 LFA7804 (Rec: 07/04/19 06:04 KUJ3860 TELE-C08) Document 07/04/19 13:35 DRM5633 (Rec: 07/04/19 13:36 GBR4888 TELE-M07) Document 07/04/19 21:32 CGQ3664 (Rec: 07/04/19 21:37 VKL6730 TELE-M07) Document 07/05/19 06:00 SCY1105 (Rec: 07/05/19 07:03 LAF8484 TELE-C10) Document 07/05/19 14:00 WKU5143 (Rec: 07/05/19 14:30 LAF8913 TELE-C11) Document 07/05/19 22:00 TMA2140 (Rec: 07/05/19 23:26 MFT5696 TELE-C33) Document 07/06/19 05:48 AJJ8722 (Rec: 07/06/19 05:49 LSW1717 TELE-M13) Document 07/06/19 14:00 GTR7873 (Rec: 07/06/19 14:43 ADO3069 TELE-C03) Document 07/06/19 22:00 SAY7552 (Rec: 07/06/19 22:05 MBA6833 TELE-C09) Document 07/07/19 03:57 VZY3755 (Rec: 07/07/19 03:57 YBE7414 TELE-C13) Document 07/07/19 05:37 SEH8648 (Rec: 07/07/19 05:37 FFH5744 TELE-C13) - Physical Exam General Physical Exam Comment: She has a marked tremor and is not able to speak clearly. General: No Cyanosis, Yes Anemia, No Jaundice, No Clubbing Skin: Normal: Rash Lungs and Chest: Yes: Chest Expansion Full, Chest Expansion Symetrica, Crackles , Wheezes, Other - tachypnea. No: Vessicular Breath Sounds, Respiratory Distress, Use of Accessory Muscles Heart Rate and Rhythm: Irregular Additional Cardiovascular: Yes: Normal Heart Sounds, Heart Murmur. No: Pedal Edema Abdominal Exam: Yes: Soft, Bowel Sounds Present. No: Distention, Abdominal Tenderness Results - Results Lab Results: Laboratory Results - last 24 hr 07/07/19 07/07/19 07/07/19 05:25 05:25 05:25 Hgb 8.2 L Hct 26 L Plt Count 137 L MPV 9.4 INR (Anticoag Therapy) 1.39 H Sodium 148 H Potassium 4.4 Chloride 115 H Carbon Dioxide 23 Anion Gap 10 BUN 32 H Creatinine 1.08 H Est GFR ( Amer) 59.2 Est GFR (Non-Af Amer) 48.9 BUN/Creatinine Ratio 29.6 H Glucose 226 H Calcium 8.4 L C-Reactive Protein 24.55 H Assessment - Problem List Assessment: Patient Problems ARDS (adult respiratory distress syndrome) (Acute) Acute renal failure (Acute) Altered mental state (Acute) Anemia (Acute) CHF, acute (Acute) Coronary artery disease (Acute) Hypernatremia (Acute) Hypokalemia (Acute) Leukocytosis (Acute) Lower respiratory tract infection (Acute) Pulmonary edema (Acute) Steroid-induced diabetes (Acute) Alcohol dependence (Chronic) Anticoagulated (Chronic) Atrial fibrillation (Chronic) Bronchiectasis (Chronic) COPD (chronic obstructive pulmonary disease) (Chronic) DVT prophylaxis (Chronic) 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 She is coughing and her lungs sound congested. I will repeat a CXR today. I think the infection has come under control, but given the problems changing her antibacterials, I want to treat her longer with piperacillin/tazobactam. She has bronchiectasis and this may be a reason for the difficulty in controlling this infection. Acute renal failure (Acute) Hypernatremia (Acute) Hypokalemia (Acute) Her BUN and creatinine are stable. Her sodium is stable, but she remains hypernatremic. her potassium is in the mid normal range. Altered mental state (Acute) She continues to be in a delirium. This is likely multifactorial - acute infecton, medication, hospitalization. This doesn 't look like seizures or an acute cerebrovascular problem. 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 I will give her a small dose of lantus insulin Anticoagulated (Chronic) She is subtherapeutic for warfarin. I cannot use fractionated heparin. Nutritional status - she requires a source of nutrition, but she is not reliably eating/drinking. Anemia - this is likely due to an acute phase response as well as blood draws. She is hemodynamically stable. 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 He agrees to TPN, but not to NG tube feeding. I will start this today. I am starting some glargine insulin.
[2019-07-07] MEDS ORDERED: Dextrose 50% Syringe 50 ML* 25 GM/50 ML SYRINGE IV PUSH PRN (07:52)
[2019-07-07] MEDS ORDERED: Insulin LISPRO* 1 UNITS UNIT SUBCUT SCH ×2 (10:00→18:29)
[2019-07-07] MEDS: Haloperidol INJ IV/IM* 5 MG/ML AMP IV SLOW PU PRN ×2 (10:11→18:23)
[2019-07-07] MEDS: Famotidine IV* 10 MG/ML 2 ML (20 mg) IV SLOW PU SCH ×2 (10:23→20:29)
[2019-07-07] MEDS: Enoxaparin(*) 30 MG/0.3 ML SYR SUBCUT SCH (10:29)
[2019-07-07] MEDS: Spironolactone TAB* 25 MG PO SCH (10:38)
[2019-07-07] MEDS: lamoTRIgine TAB(*) 100 MG PO SCH ×2 (10:38→20:29)
[2019-07-07] MEDS: Ramipril CAP* 5 MG PO SCH (10:38)
[2019-07-07] MEDS: Insulin GLARGINE(*) 1 UNITS UNIT SUBCUT SCH (10:41)
[2019-07-07] MEDS: Insulin LISPRO* 1 UNITS UNIT SUBCUT SCH ×4 (12:12→23:58)
[2019-07-07] MEDS: Morphine INJ* 2 MG/ML 1 ML SYRINGE (TWO MG - NEW SYRINGE VERSION) IV PRN ×3 (13:15→23:20)
[2019-07-07] MEDS: Atorvastatin* 40 MG TAB PO SCH (16:46)
[2019-07-07] MEDS: ORALSYR PO SCH (16:46)
[2019-07-07] MEDS: DIGOXIN PO SCH (16:46)
[2019-07-07] MEDS: TPN* 24 HR with Dextrose 50% Water* 500 ML, Amino Acid Infusion 10%* 850 ML, Sterile Wa... CENTR SCH ×12 (17:39)
[2019-07-07] MEDS: levETIRAcetam 500 MG IVPREMIX* 500 MG/100 ML BAG IV SCH (23:05)
[2019-07-08] MEDS: Metoprolol Tartrate IV* 1 MG/ML 5 ML VIAL IV SCH ×4 (04:08→20:52)
[2019-07-08] MEDS: methylPREDNISolone SOD 40 MG* 1 ML VIAL IV SCH ×3 (04:08→20:51)
[2019-07-08] MEDS: ZOSYN 3.375 GM Q8H per EXTENDED INFUSION IVPB SCH ×6 (06:10→22:37)
[2019-07-08] MEDS: Insulin LISPRO* 1 UNITS UNIT SUBCUT SCH ×3 (06:27→17:13)
[2019-07-08 06:45] LABS: C Reactive Protein 21.79 mg/L (<8.01); Calcium 8.9 mg/dL (8.6-10.3); EGFR African American 64.7 (>60); EGFR Non-African American 53.5 (>60); Potassium 3.8 mmol/L (3.5-5.0)
[2019-07-08 07:13] LABS: ABS Basophils 0.1 10^3/ul (0-0.2); ABS Lymphocytes 1.4 10^3/ul (1.0-4.8); ABS Monocytes 1.3 10^3/ul (0-0.8); ABS Neutrophils 24.6 10^3/ul (1.5-7.7); ABS Nucleated RBC 0.1 10^3/ul; Hematocrit 27 % (35-47); Hemoglobin 8.7 g/dL (12.0-16.0); Lymphocyte % 5.2 %; Mean Corpuscular HGB Conc 32 g/dL (31-36); Mean Corpuscular Hemoglobin 30 pg (27-31); Mean Corpuscular Volume 92 fL (80-97); Mean Platelet Volume 10.2 fL (7.4-10.4); Nucleated Red Blood Cells % 0.4; Platelet Count 177 10^3/uL (150-450); Red Blood Count 2.94 10^6 /uL (3.70-4.87); Red Cell Distribution Width 24 % (10-15); White Blood Count 27.4 10^3/uL (3.5-10.8)
[2019-07-08] MEDS: Morphine INJ* 2 MG/ML 1 ML SYRINGE (TWO MG - NEW SYRINGE VERSION) IV PRN ×4 (08:09→22:38)
[2019-07-08] MEDS: lamoTRIgine TAB(*) 100 MG PO SCH ×2 (09:02→20:52)
[2019-07-08] MEDS: Ramipril CAP* 5 MG PO SCH (09:02)
[2019-07-08] MEDS: Spironolactone TAB* 25 MG PO SCH (09:02)
[2019-07-08] MEDS ORDERED: Morphine INJ* 2 MG/ML 1 ML SYRINGE (TWO MG - NEW SYRINGE VERSION) IV ONE (09:03)
[2019-07-08] MEDS ORDERED: Furosemide IV* 10 MG/ML VIAL (40 MG) IV ONE (09:03)
[2019-07-08] MEDS: Insulin GLARGINE(*) 1 UNITS UNIT SUBCUT SCH (09:04)
[2019-07-08] MEDS: Famotidine IV* 10 MG/ML 2 ML (20 mg) IV SLOW PU SCH ×2 (09:04→20:52)
[2019-07-08] MEDS: Enoxaparin(*) 30 MG/0.3 ML SYR SUBCUT SCH (09:05)
--- NOTE | 2019-07-08 09:19 | PN ---
Subjective - Subjective Reason for Note: Progress Note History: She has acute respiratory distress this morning, most likely due to pulmonary edema. She is alert, but not able to communicate with us. We started TPN yesterday. Active Problems: Active Problems ARDS (adult respiratory distress syndrome) (Acute) J80 Acute renal failure (Acute) Altered mental state (Acute) R41.82 Pt is even more confused and agitated today compared to yesterday at my visit. Cause of her confusion is not clear. There is no evidence of infection. CT brain negative for any acute findings. ? hospital acquired delirium in the setting of a person who at baseline is mild to moderately confused (per [facility] staff) vs related to EtOH withdrawl (seems unlikely as pt has no other signs of withdrawl) vs non convulsive status (also unlikely given how verbal and active she has been). I trialed seroquel 25mg last night and reportedly she had an ok night. Given the screaming and marked agitation at this time will give haldol 2mg IV x1 now to see if she will settle and be more appropriate with her care. Anemia (Acute) D64.9 CHF, acute (Acute) I50.9 Pt was felt to have acute diastolic CHF/flash pulmonary edema on presenation. She required BiPAP for acute hypoxic resp failure. This is now resolved. She is now on RA. Resume lasix and spironolactone- I doubt she will take her meds at this time. Coronary artery disease (Acute) I25.10 Hypernatremia (Acute) E87.0 Hypokalemia (Acute) E87.6 Leukocytosis (Acute) D72.829 Lower respiratory tract infection (Acute) J22 Pulmonary edema (Acute) J81.1 Steroid-induced diabetes (Acute) Alcohol dependence (Chronic) F10.20 As pt is unable to tell me anything useful, it is unclear if she is still drinking. She does not appear to be withdrawling from EtOH. Anticoagulated (Chronic) Z79.01 Atrial fibrillation (Chronic) I48.91 Pt is in afib but controlled rate. Continue coreg and digoxin and coumadin. Recheck INR tomorrow. Pt refused labs this AM. Bronchiectasis (Chronic) J47.9 COPD (chronic obstructive pulmonary disease) (Chronic) J44.9 No signs of exacerbation. Stop solumedrol. Monitor respiratory status. 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 Continue keppra and lamotrigine. Keppra level sent last night just prior to her receiving her evening dose. Current Medications: Current Medications Acetaminophen (Tylenol Tab*) 650 mg PO Q4H PRN PRN Reason: FEVER/PAIN Atorvastatin Calcium (Lipitor*) 40 mg PO 1700 [facility] Last Admin: 07/07/19 16:46 Dose: Not Given Dextrose (D50w Syringe 50 Ml*) 12.5 gm IV PUSH .FOR FS < 60 - SS PRN PRN Reason: FS < 60 Digoxin (Lanoxin Liq* Oralsyr) 0.125 mg PO 1700 [facility] Last Admin: 07/07/19 16:46 Dose: Not Given Enoxaparin Sodium (Lovenox(*)) 30 mg SUBCUT Q24H [facility] Last Admin: 07/08/19 09:05 Dose: 30 mg Famotidine (Pepcid Iv*) 20 mg IV SLOW PU BID [facility] Last Admin: 07/08/19 09:04 Dose: 20 mg Haloperidol Lactate (Haldol Inj Iv/Im*) 2.5 mg IV SLOW PU Q8H PRN PRN Reason: AGITATION Last Admin: 07/07/19 18:23 Dose: 2.5 mg Heparin Sodium (Porcine) (Heparin Flush Picc/Ml/Cvc(*)) 0 ml FLUSH 0600,1800 [facility] Last Admin: 07/08/19 06:29 Dose: Not Given Hydralazine HCl (Apresoline Iv*) 5 mg IV SLOW PU Q4H PRN PRN Reason: SBP > 160 Last Admin: 06/28/19 19:46 Dose: 5 mg Piperacillin Sod/Tazobactam (Sod 3.375 gm/ Sodium Chloride) 100 mls @ 25 mls/ hr IVPB Q8H [facility] Last Admin: 07/08/19 06:10 Dose: 25 mls/hr Levetiracetam (Keppra Iv Premix*) 500 mg in 100 mls @ 400 mls/hr IV Q12H [facility] Last Admin: 07/07/19 23:05 Dose: 400 mls/hr Dextrose 500 ml/ Amino Acids 850 ml/ Sterile Water 150 ml/Fat Emulsion Intravenous 250 ml/ Sodium Chloride 25 meq/Potassium Chloride 50 meq/Potassium Phosphate 15 mmole/Calcium Gluconate 15 meq/Magnesium Sulfate 10 meq/ Multivitamins 10 ml/ Trace Metals 1 ml/ Nutrition ( Parenteral) 1,831.971 mls @ 76.332 mls/hr CENTR 1700 [facility] Last Admin: 07/07/19 17:39 Dose: 76.332 mls/hr Insulin Glargine (Lantus(*)) 12 units SUBCUT Q24H [facility] Last Admin: 07/08/19 09:04 Dose: 12 units Insulin Human Lispro (Humalog*) 0 - 6 units SUBCUT Q6HR [facility]; Protocol Last Admin: 07/08/19 06:27 Dose: 2 units Lamotrigine (Lamictal Tab(*)) 50 mg PO BID [facility] Last Admin: 07/08/19 09:02 Dose: Not Given Levalbuterol HCl (Xopenex 0.63mg/3ml Neb*) 0.31 mg INH Q6H PRN PRN Reason: SOB/WHEEZING Last Admin: 06/25/19 21:39 Dose: 0.63 mg Methylprednisolone Sodium Succinate (Solu-Medrol 40 Mg) 20 mg IV Q8H [facility] Last Admin: 07/08/19 04:08 Dose: 20 mg Metoprolol Tartrate (Lopressor Iv*) 2.5 mg IV Q6H [facility] Last Admin: 07/08/19 09:04 Dose: 2.5 mg Miscellaneous (Ativan Pyxis Rodriguez) 1 ea N/A .PYXIS RODRIGUEZ PRN PRN Reason: PER PROTOCOL Morphine Sulfate (Morphine Inj (Syringe))*) 1 mg IV Q2H PRN PRN Reason: .PAIN Last Admin: 07/08/19 08:09 Dose: 1 mg Pharmacy Consult (Zosyn Per Pharmacy*) 1 note FOLLOW UP .ZOSYN PER PHARMACY [facility] Ramipril (Altace Cap*) 5 mg PO DAILY [facility] Last Admin: 07/08/19 09:02 Dose: Not Given Spironolactone (Aldactone Tab*) 12.5 mg PO DAILY [facility] Last Admin: 07/08/19 09:02 Dose: Not Given Home Medications: Home Medications Medication Instructions Recorded Confirmed Type Digoxin TAB* [Lanoxin TAB*] 0.125 mg PO DAILY 11/14/17 06/23/19 History levETIRAcetam TAB* [Keppra TAB*] 750 mg PO BID tab 11/16/17 06/23/19 Rx Atorvastatin* [Lipitor 20 MG*] 20 mg PO BEDTIME 12/01/18 06/23/19 History lamoTRIgine TAB(*) [Lamictal 100 mg PO BID 12/01/18 06/23/19 History TAB(*)] Carvedilol TAB* [Coreg TAB*] 3.125 mg PO BID #60 tab 06/19/19 06/23/19 Rx Furosemide TAB* [Lasix TAB*] 20 mg PO 0800 5 Days #30 tab 06/19/19 06/23/19 Rx Levalbuterol 0.63MG/3ML NEB* 0.31 mg INH Q6H PRN #30 neb.soln 06/19/19 06/23/19 Rx [Xopenex 0.63MG/3ML NEB*] Spironolactone TAB* [Aldactone TAB 12.5 mg PO DAILY #30 tab 06/19/19 06/23/19 Rx 25 MG*] predniSONE TAB* [Deltasone 20 MG 5 mg PO DAILY #10 tab 06/19/19 06/23/19 Rx TAB*] Cephalexin 500 mg PO QID 06/23/19 06/23/19 History Warfarin TAB(*) [Coumadin TAB(*)] 0.5 mg PO DAILY@1700 06/23/19 06/23/19 History Allergies: Allergies Allergy/AdvReac Type Severity Reaction Status Date / Time No Known Allergies Allergy Verified 06/23/19 04:24 Objective - Vital Signs Vital Signs: Vital Signs 07/07/19 07/07/19 07/07/19 11:28 13:15 14:56 Temperature 97.9 F Pulse Rate 84 Respiratory 16 20 19 Rate Blood Pressure (mmHg) O2 Sat by Pulse Oximetry 07/07/19 07/07/19 07/07/19 14:59 16:52 18:06 Temperature 98.2 F Pulse Rate 91 Respiratory 18 22 20 Rate Blood Pressure 153/106 (mmHg) O2 Sat by Pulse 91 Oximetry 07/07/19 07/07/19 07/07/19 19:46 20:10 23:20 Temperature 97.8 F Pulse Rate 85 Respiratory 17 20 20 Rate Blood Pressure 149/111 (mmHg) O2 Sat by Pulse 94 Oximetry 07/08/19 07/08/19 07/08/19 00:36 00:41 03:46 Temperature 97.5 F Pulse Rate 84 62 Respiratory 16 18 18 Rate Blood Pressure 154/88 147/48 (mmHg) O2 Sat by Pulse 92 96 Oximetry 07/08/19 07/08/19 08:00 08:09 Temperature 98.9 F Pulse Rate 96 Respiratory 30 30 Rate Blood Pressure 132/54 (mmHg) O2 Sat by Pulse 92 Oximetry - Intake and Output Intake and Output: Intake & Output 07/05/19 07/06/19 07/07/19 07/08/19 11:59 11:59 11:59 11:59 Intake Total 237 469 3757 545 Output Total 1150 350 435 650 Balance -630 463 621 -105 Weight 110 lb 4.8 oz 110 lb 105 lb 12.8 oz 104 lb 4.8 oz Intake: IV Fluids 220 300 892 145 ABX - ZOSYN 200 294 D5W 1/4 NS 40mEq K 593 100 Keppra 100 LR 220 NS (0.9%) 5 45 IVPB 164 400 ABX - ZOSYN 164 300 Keppra 100 Medicated IV 513 D5 1/4 20 K+ 513 Oral 300 0 0 0 Output: Urine 0 Joya 1150 350 435 650 Other: # Bowel Movements 0 ADLs: Meal Record Start: 06/23/19 11: 08 Freq: 09,13,18 Status: Complete Protocol: Created 06/23/19 11:08 System (Rec: 06/23/19 11:08 System [facility]-C05) ADLs: Meal Record Start: 06/23/19 15: 24 Freq: DAILY@0900,1400,1800 Status: Active Protocol: Created 06/23/19 15:24 [id number] (Rec: 06/23/19 15:24 LXC3518 ICU-C25) Document 06/23/19 18:00 ZQZ6890 (Rec: 06/23/19 20:33 JEH1648 TELE-C07) Document 06/24/19 09:00 AEO1121 (Rec: 06/24/19 10:22 LPU8391 TELE-C03) Document 06/24/19 18:00 QVK0028 (Rec: 06/24/19 18:15 OAJ9473 TELE-C07) Document 06/25/19 08:58 JMR9898 (Rec: 06/25/19 08:59 LGA2888 TELE-M11) Document 06/25/19 13:57 JUA7055 (Rec: 06/25/19 13:59 DHQ6881 TELE-M11) Document 06/25/19 18:00 PUF8013 (Rec: 06/25/19 22:40 TGD8251 TELE-C05) Document 06/26/19 10:00 DTQ9527 (Rec: 06/26/19 11:06 YEN0559 ICU-C15) Document 06/26/19 18:00 QXZ4416 (Rec: 06/26/19 18:05 OMS9676 ICU-L03) Document 06/28/19 11:23 LBL5276 (Rec: 06/28/19 11:23 HZG1178 TELE-M21) Document 06/28/19 13:25 FKL2142 (Rec: 06/28/19 13:25 OYZ1535 TELE-M21) Document 06/28/19 21:48 VIM4812 (Rec: 06/28/19 21:48 YIQ7353 TELE-C11) Document 06/29/19 04:22 VFL2604 (Rec: 06/29/19 04:23 JDS8298 TELE-M21) Document 06/29/19 05:29 YAI5491 (Rec: 06/29/19 05:29 IRY8635 TELE-M21) Document 06/30/19 18:13 BHB6054 (Rec: 06/30/19 18:13 KLB1457 TELE-M21) Document 07/01/19 09:50 QIN3623 (Rec: 07/01/19 09:50 CMY2475 TELE-M21) Document 07/01/19 13:21 YMN9858 (Rec: 07/01/19 13:21 XQS5587 TELE-M21) Document 07/01/19 19:39 MJC2268 (Rec: 07/01/19 19:39 MDM4806 TELE-M21) Document 07/02/19 14:00 CBG9799 (Rec: 07/02/19 14:47 FIH3483 TELE-C05) Document 07/02/19 18:00 CBN7201 (Rec: 07/02/19 18:28 YZX2949 TELE-M21) Document 07/03/19 09:00 RYW5073 (Rec: 07/03/19 10:47 MCJ8636 TELE-C01) Document 07/03/19 12:58 NUA8601 (Rec: 07/03/19 12:58 EAD9536 TELE-C01) Document 07/03/19 18:00 VZW3158 (Rec: 07/03/19 20:00 XKP5866 TELE-C08) Document 07/04/19 09:00 RJX8048 (Rec: 07/04/19 09:37 QER6834 TELE-M07) Document 07/04/19 12:44 MAT0446 (Rec: 07/04/19 12:44 NCI1443 TELE-M07) Document 07/04/19 18:00 QIN5950 (Rec: 07/04/19 18:07 PRU6719 TELE-M07) Document 07/05/19 09:00 FVU3962 (Rec: 07/05/19 14:02 PHC8716 TELE-C11) Document 07/05/19 14:00 RCV8834 (Rec: 07/05/19 14:04 XPH1043 TELE-C11) Document 07/05/19 18:00 XCU8358 (Rec: 07/05/19 18:21 BQF2187 TELE-M15) Document 07/06/19 09:00 QAI0666 (Rec: 07/06/19 12:05 FZK7953 TELE-C08) Document 07/06/19 14:00 RKS0003 (Rec: 07/06/19 14:43 SVK7043 TELE-C03) Document 07/06/19 18:00 IFX3080 (Rec: 07/06/19 22:02 KIT5992 TELE-C09) Document 07/07/19 18:00 FXS7675 (Rec: 07/07/19 20:04 YHQ5706 TELE-C11) ADLs: Meal Record Start: 06/25/19 22: 26 Freq: Status: Complete Protocol: Created 06/25/19 22:26 SFX8741 (Rec: 06/25/19 22:26 CBH4984 ICU-C25) ADLs: Meal Record Start: 06/28/19 12: 17 Freq: Status: Cancelled Protocol: Created 06/28/19 12:17 BIZ4018 (Rec: 06/28/19 12:17 YSZ2843 TELE-M21) Intake and Output Start: 06/23/19 04: 23 Freq: Status: Inactive Protocol: Created 06/23/19 04:23 System (Rec: 06/23/19 04:23 System EDRM-C10) Intake and Output Start: 06/23/19 11: 08 Freq: Q1HR Status: Inactive Protocol: Created 06/23/19 11:08 System (Rec: 06/23/19 11:08 System PMRU-C05) Document 06/23/19 14:59 DPS3377 (Rec: 06/23/19 15:00 KII8987 ICU-C25) Intake and Output Start: 06/23/19 15: 24 Freq: DAILY@0600,1400,2200 Status: Inactive Protocol: Document 06/23/19 12:00 YHJ8136 (Rec: 06/23/19 15:26 XET7398 ICU-C25) Created 06/23/19 15:24 ZQK7533 (Rec: 06/23/19 15:24 GXK5138 ICU-C25) Document 06/23/19 21:29 MUR7764 (Rec: 06/23/19 21:30 WSE8296 TELE-C07) Document 06/24/19 06:00 FMO0567 (Rec: 06/24/19 06:06 VJR8228 TELE-C09) Document 06/24/19 22:00 UFM7287 (Rec: 06/24/19 22:36 FRH3902 TELE-C07) Document 06/25/19 05:51 LXS8553 (Rec: 06/25/19 05:52 QAQ2026 TELE-C07) Document 06/25/19 12:11 NYS2076 (Rec: 06/25/19 12:12 VZC4260 TELE-M11) Intake and Output Start: 06/25/19 22: 26 Freq: 06,14,2200 Status: Active Protocol: Created 06/25/19 22:26 OER8636 (Rec: 06/25/19 22:26 XKC0600 ICU-C25) Document 06/25/19 23:00 AKB9406 (Rec: 06/25/19 23:05 DMD6169 ICU-C25) Document 06/25/19 23:28 QCB5748 (Rec: 06/25/19 23:30 FJW1505 ICU-C16) Document 06/25/19 23:47 EFC0413 (Rec: 06/25/19 23:47 PIN1482 ICU-C25) Document 06/26/19 01:00 HWO3797 (Rec: 06/26/19 02:24 TUT0729 ICU-C25) Document 06/26/19 02:00 DDE8314 (Rec: 06/26/19 02:24 OQC5084 ICU-C25) Document 06/26/19 03:00 OAJ4202 (Rec: 06/26/19 03:21 TKR3814 ICU-C25) Document 06/26/19 04:00 PQA9563 (Rec: 06/26/19 04:13 HDO7730 ICU-C25) Document 06/26/19 05:00 OOU1518 (Rec: 06/26/19 05:01 ERO4824 ICU-C25) Document 06/26/19 06:00 CQZ8038 (Rec: 06/26/19 06:05 FDF0328 ICU-C25) Document 06/26/19 07:00 AGB7586 (Rec: 06/26/19 07:58 LUF1227 ICU-C15) Document 06/26/19 07:58 SKE5707 (Rec: 06/26/19 07:58 FVN6533 ICU-C15) Document 06/26/19 09:00 PMU9468 (Rec: 06/26/19 09:41 QSG6014 ICU-C15) Document 06/26/19 10:00 BNT2347 (Rec: 06/26/19 11:07 HJE5275 ICU-C15) Document 06/26/19 11:00 EVG1157 (Rec: 06/26/19 11:07 KJC1799 ICU-C15) Document 06/26/19 12:00 KOI3081 (Rec: 06/26/19 12:14 MGL5341 ICU-C15) Document 06/26/19 13:00 TXJ9535 (Rec: 06/26/19 13:22 ADR0815 ICU-C15) Document 06/26/19 14:00 INN6462 (Rec: 06/26/19 17:56 DMI0060 ICU-L03) Document 06/26/19 15:00 MEQ9112 (Rec: 06/26/19 17:57 SLT4556 ICU-L03) Document 06/26/19 16:00 LAE7926 (Rec: 06/26/19 17:57 ETT2830 ICU-L03) Document 06/26/19 17:00 HBK2960 (Rec: 06/26/19 17:57 DRT6994 ICU-L03) Document 06/26/19 17:57 FMS5727 (Rec: 06/26/19 17:57 MUZ7941 ICU-L03) Document 06/26/19 19:00 AXO3944 (Rec: 06/26/19 19:08 HWX9562 ISDEMO-M03 ) Document 06/26/19 20:00 VFZ0615 (Rec: 06/26/19 20:05 VSF7692 ICU-C15) Document 06/26/19 21:00 GBH1645 (Rec: 06/26/19 22:09 BDG6146 ISDEMO-M03 ) Document 06/26/19 22:00 BHA9773 (Rec: 06/26/19 22:09 YZS9457 ISDEMO-M03 ) Document 06/26/19 23:00 SXA5212 (Rec: 06/26/19 23:20 VIE1305 ICU-C15) Document 06/26/19 23:59 PYV4458 (Rec: 06/26/19 23:59 TTD8371 ICU-C15) Document 06/27/19 01:00 AQK0941 (Rec: 06/27/19 01:08 AMD2265 ICU-C15) Document 06/27/19 02:00 XEP4739 (Rec: 06/27/19 02:03 BYU5613 ICU-C15) Document 06/27/19 03:00 DTP0956 (Rec: 06/27/19 05:10 MQB0900 ICU-C15) Document 06/27/19 04:00 GZY0049 (Rec: 06/27/19 05:10 YSO4702 ICU-C15) Document 06/27/19 06:00 GPH5449 (Rec: 06/27/19 06:02 AEA9639 ICU-C15) Document 06/27/19 08:00 SNJ8670 (Rec: 06/27/19 08:07 NCY5773 ICU-C15) Document 06/27/19 09:31 YGY7801 (Rec: 06/27/19 09:31 UWB6521 ICU-C15) Document 06/27/19 11:00 UCB2282 (Rec: 06/27/19 11:10 WEM1020 ICU-C15) Document 06/27/19 13:45 ABT4737 (Rec: 06/27/19 13:56 NZR3692 ICU-C15) Document 07/02/19 07:36 PSZ4970 (Rec: 07/02/19 07:36 WHR8212 TELE-M20) Document 07/02/19 14:00 TPM7566 (Rec: 07/02/19 14:47 CBY0458 TELE-C05) Document 07/02/19 15:34 PQL6790 (Rec: 07/02/19 15:34 KBG5377 TELE-M20) Document 07/02/19 21:53 CZQ9329 (Rec: 07/02/19 21:53 SEK6448 TELE-M21) Document 07/03/19 06:00 PPT6134 (Rec: 07/03/19 07:27 QAI1947 TELE-C10) Document 07/03/19 14:00 JHA3593 (Rec: 07/03/19 14:58 TVR9613 TELE-C01) Document 07/03/19 21:47 WUN7292 (Rec: 07/03/19 21:47 FOL6690 TELE-C08) Document 07/04/19 03:30 YPM8338 (Rec: 07/04/19 07:00 KOC8252 MED-M16) Document 07/04/19 06:00 VAO6154 (Rec: 07/04/19 06:04 SRB7042 TELE-C08) Document 07/04/19 13:35 VKR2171 (Rec: 07/04/19 13:36 CGL7314 TELE-M07) Document 07/04/19 21:32 TVM6507 (Rec: 07/04/19 21:37 JJB1362 TELE-M07) Document 07/05/19 06:00 DKU7643 (Rec: 07/05/19 07:03 YHW4689 TELE-C10) Document 07/05/19 14:00 TNP1467 (Rec: 07/05/19 14:30 NNM3683 TELE-C11) Document 07/05/19 22:00 SCC8330 (Rec: 07/05/19 23:26 STV2662 TELE-C33) Document 07/06/19 05:48 SAY0738 (Rec: 07/06/19 05:49 OZH2506 TELE-M13) Document 07/06/19 14:00 ODH1382 (Rec: 07/06/19 14:43 EHI9117 TELE-C03) Document 07/06/19 22:00 OVG8392 (Rec: 07/06/19 22:05 MWD3863 TELE-C09) Document 07/07/19 03:57 LAA3682 (Rec: 07/07/19 03:57 FQH1327 TELE-C13) Document 07/07/19 05:37 UGS9802 (Rec: 07/07/19 05:37 GLS3904 TELE-C13) Document 07/07/19 22:00 WNU4511 (Rec: 07/07/19 22:42 BNV7722 TELE-C11) Document 07/08/19 06:00 NIW4914 (Rec: 07/08/19 07:55 AXA1316 TELE-C11) - Physical Exam General Physical Exam Comment: She shows signs of respiratory distress General: No Cyanosis, No Jaundice, No Clubbing Lungs and Chest: Yes: Chest Expansion Full, Chest Expansion Symetrica, Crackles , Wheezes, Respiratory Distress. No: Vessicular Breath Sounds, Use of Accessory Muscles Heart Rate and Rhythm: Irregular Additional Cardiovascular: Yes: Normal Heart Sounds, Heart Murmur. No: Pedal Edema Abdominal Exam: Yes: Soft, Bowel Sounds Present. No: Distention, Abdominal Tenderness Results - Results Lab Results: Laboratory Results - last 24 hr 07/07/19 07/07/19 07/07/19 10:28 12:02 18:12 WBC RBC Hgb Hct MCV MCH MCHC RDW Plt Count MPV Neut % (Auto) Lymph % (Auto) [place] % (Auto) Eos % (Auto) Baso % (Auto) Absolute Neuts (auto) Absolute Lymphs (auto) Absolute Monos (auto) Absolute Eos (auto) Absolute Basos (auto) Absolute Nucleated RBC Nucleated RBC % Sodium Potassium Chloride Carbon Dioxide Anion Gap BUN Creatinine Est GFR ( Amer) Est GFR (Non-Af Amer) BUN/Creatinine Ratio Glucose POC Glucose (mg/dL) 186 H 149 H 224 H Calcium C-Reactive Protein 07/07/19 07/08/19 07/08/19 23:37 06:10 06:10 WBC 27.4 H RBC 2.94 L Hgb 8.7 L Hct 27 L MCV 92 MCH 30 MCHC 32 RDW 24 H Plt Count 177 MPV 10.2 Neut % (Auto) 90.0 Lymph % (Auto) 5.2 [place] % (Auto) 4.6 Eos % (Auto) 0.0 Baso % (Auto) 0.2 Absolute Neuts (auto) 24.6 H Absolute Lymphs (auto) 1.4 Absolute Monos (auto) 1.3 H Absolute Eos (auto) 0.0 Absolute Basos (auto) 0.1 Absolute Nucleated RBC 0.1 Nucleated RBC % 0.4 Sodium 149 H Potassium 3.8 Chloride 117 H Carbon Dioxide 21 L Anion Gap 11 BUN 41 H Creatinine 1.00 H Est GFR ( Amer) 64.7 Est GFR (Non-Af Amer) 53.5 BUN/Creatinine Ratio 41.0 H Glucose 221 H POC Glucose (mg/dL) 244 H Calcium 8.9 C-Reactive Protein 21.79 H 07/08/19 06:19 WBC RBC Hgb Hct MCV MCH MCHC RDW Plt Count MPV Neut % (Auto) Lymph % (Auto) [place] % (Auto) Eos % (Auto) Baso % (Auto) Absolute Neuts (auto) Absolute Lymphs (auto) Absolute Monos (auto) Absolute Eos (auto) Absolute Basos (auto) Absolute Nucleated RBC Nucleated RBC % Sodium Potassium Chloride Carbon Dioxide Anion Gap BUN Creatinine Est GFR ( Amer) Est GFR (Non-Af Amer) BUN/Creatinine Ratio Glucose POC Glucose (mg/dL) 242 H Calcium C-Reactive Protein EKG Report: Patient Name: ELHAM CHOPRA Medical Record#: [id number] Ordering Physician: Jigar Biswas MD Acct.#: [id number] : 1940 Age: 79 Sex: F Location: [address] [place] [address] MEDICAL/TELEMETRY Exam Date: 07/07/19735 ADM Status: ADM IN Order Information: CHEST AP OR PORT Accession Number: [id number] CPT: 40311 Indication: ARDS, pneumonia. Shortness of breath. Cough. COPD. Comparison: July 05, 2019 chest radiograph and June 30, 2019 CT. Technique: Upright AP 0750 hours Report: Tip of RIGHT upper extremity PICC at level of the superior vena cava RIGHT atrial junction. Elevated lung volumes. Bilateral alveolar and interstitial infiltrates most prominent at the RIGHT upper lung zone and LEFT midlung zone with interval improvement. Small bilateral pleural effusions with probable interval decrease on the RIGHT. Cardiomegaly without change. Unremarkable central pulmonary vasculature and mediastinal contours. Old LEFT femoral head neck fracture. IMPRESSION: #. Interval improvement in alveolar and interstitial infiltrates compared with the July 05, 2019 exam. #. Probable interval decrease in RIGHT pleural effusion. <Electronically signed by Stef Long MD in [place]> 07/07/19930 Dictated By: Stef Long MD Dictated Date/Time: 07/07/19930 Transcribed Date/Time: 07/07/19925 Copy to: CC:Jigar Biswas MD; Feng Nash MD; Tatiana Corea MD Imaging - [facility] Imaging - [place] [facility] [address] [address] ph [phone]) ph ([phone]) ph ([phone]) This report is only to be considered final once signed by the Provider(s) as displayed in the "<Electronically Signed by >" field (s). Absence of a signature indicates the report is in a draft status and still needs to be finalized. In the event this document was created by someone other than the signing Provider, the individual initiating the document will be listed in the "Entered by:" or "Dictated by:" mitchell. 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 I have slowed her TPN temporarily, given her IV furosemide 40 mg stat and morphine. Her CRP continues to come down. Hence we are likely dealing with the aftermath of this infection and the inflammatory damage caused by her vigorous immune response to this infection. I note, her underlying ARDS is improving per radiology Acute renal failure (Acute) Her renal status is stable and she can take the furosemide. Altered mental state (Acute) She remains disoriented Anemia (Acute) ongoing Steroid-induced diabetes (Acute) I will up her glargine insulin. I am maintaining her steroids as long as she has signs of ARDS. Hypernatremia (Acute) Hypokalemia (Acute) She remains hyperkalemic, her potassium is acceptable Leukocytosis (Acute) This is a vigorous response to the TPN and steroids. 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 She has acute respiratory failure due to the volumme she has received from TPN. 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 I am treating this acutely as noted above. However, this damage to her lung physiology is the weakest link in her recovery. Her mental state remains encephalopathic - this is multifactorial. She remains critically ill. I called Kevin Chopra - he had poor entry level receptionist and I couldn't speak with him.
[2019-07-08] MEDS: levETIRAcetam 500 MG IVPREMIX* 500 MG/100 ML BAG IV SCH ×2 (10:05→20:52)
[2019-07-08 12:15] LABS: ALT 42 U/L (7-52); AST 28 U/L (13-39); Albumin 3.4 g/dL (3.2-5.2); Albumin/Globulin Ratio 1.2 (1-3); Alkaline Phosphatase 117 U/L (34-104); Blood Urea Nitrogen 41 mg/dL (6-24); CO2 Carbon Dioxide 23 mmol/L (22-32); Calcium 9.1 mg/dL (8.6-10.3); Cholesterol 144 mg/dL; EGFR African American 64.7 (>60); EGFR Non-African American 53.5 (>60); Globulin 2.8 g/dL (2-4); Glucose 372 mg/dL (70-100); Magnesium 2.1 mg/dL (1.9-2.7); Phosphorus 2.4 mg/dL (2.5-5.0); Potassium 4.1 mmol/L (3.5-5.0); Total Protein 6.2 g/dL (6.4-8.9); Triglycerides 214 mg/dL
[2019-07-08 12:16] LABS: Anion Gap 11 mmol/L (2-11); Chloride 115 mmol/L (101-111); Sodium 149 mmol/L (135-145)
[2019-07-08] MEDS: Furosemide IV* 10 MG/ML 2 ML VIAL (20 MG) IV SCH ×2 (13:22→22:38)
[2019-07-08] MEDS: Haloperidol INJ IV/IM* 5 MG/ML AMP IV SLOW PU PRN (13:43)
[2019-07-08] MEDS: Atorvastatin* 40 MG TAB PO SCH (16:41)
[2019-07-08] MEDS: ORALSYR PO SCH (16:41)
[2019-07-08] MEDS: TPN* 24 HR with Dextrose 50% Water* 500 ML, Amino Acid Infusion 10%* 850 ML, Sterile Wa... CENTR SCH ×12 (16:41)
[2019-07-08] MEDS: DIGOXIN PO SCH (16:41)
[2019-07-09] MEDS: Insulin LISPRO* 1 UNITS UNIT SUBCUT SCH ×4 (00:32→19:53)
[2019-07-09] MEDS: Metoprolol Tartrate IV* 1 MG/ML 5 ML VIAL IV SCH ×4 (04:15→22:11)
[2019-07-09] MEDS: Morphine INJ* 2 MG/ML 1 ML SYRINGE (TWO MG - NEW SYRINGE VERSION) IV PRN ×4 (04:16→23:46)
[2019-07-09] MEDS: methylPREDNISolone SOD 40 MG* 1 ML VIAL IV SCH ×2 (04:16→22:11)
[2019-07-09] MEDS: ZOSYN 3.375 GM Q8H per EXTENDED INFUSION IVPB SCH ×6 (06:20→22:35)
[2019-07-09] MEDS: Furosemide IV* 10 MG/ML 2 ML VIAL (20 MG) IV SCH ×3 (06:21→22:11)
[2019-07-09 07:51] LABS: BUN/Creatinine Ratio 46.5 (8-20); Calcium 9.2 mg/dL (8.6-10.3); EGFR African American 65.5 (>60); EGFR Non-African American 54.1 (>60); Potassium 3.2 mmol/L (3.5-5.0)
[2019-07-09] MEDS ORDERED: Insulin GLARGINE(*) 1 UNITS UNIT SUBCUT SCH (09:00)
--- NOTE | 2019-07-09 10:19 | PN ---
Subjective - Subjective Reason for Note: Progress Note History: She is encephalopathic - moving around in the bed, impossible to orient and not responding to her name or commands. I note that she had a good diuretic response yesterday and her respiratory function has improved. Her glucose has improved with increased insulin and she is tolerating the TPN. Active Problems: Active Problems ARDS (adult respiratory distress syndrome) (Acute) J80 Acute renal failure (Acute) Altered mental state (Acute) R41.82 Pt is even more confused and agitated today compared to yesterday at my visit. Cause of her confusion is not clear. There is no evidence of infection. CT brain negative for any acute findings. ? hospital acquired delirium in the setting of a person who at baseline is mild to moderately confused (per [facility] staff) vs related to EtOH withdrawl (seems unlikely as pt has no other signs of withdrawl) vs non convulsive status (also unlikely given how verbal and active she has been). I trialed seroquel 25mg last night and reportedly she had an ok night. Given the screaming and marked agitation at this time will give haldol 2mg IV x1 now to see if she will settle and be more appropriate with her care. Anemia (Acute) D64.9 CHF, acute (Acute) I50.9 Pt was felt to have acute diastolic CHF/flash pulmonary edema on presenation. She required BiPAP for acute hypoxic resp failure. This is now resolved. She is now on RA. Resume lasix and spironolactone- I doubt she will take her meds at this time. Coronary artery disease (Acute) I25.10 Hypernatremia (Acute) E87.0 Hypokalemia (Acute) E87.6 Leukocytosis (Acute) D72.829 Lower respiratory tract infection (Acute) J22 On total parenteral nutrition (Acute) Z78.9 Pulmonary edema (Acute) J81.1 Steroid-induced diabetes (Acute) Alcohol dependence (Chronic) F10.20 As pt is unable to tell me anything useful, it is unclear if she is still drinking. She does not appear to be withdrawling from EtOH. Anticoagulated (Chronic) Z79.01 Atrial fibrillation (Chronic) I48.91 Pt is in afib but controlled rate. Continue coreg and digoxin and coumadin. Recheck INR tomorrow. Pt refused labs this AM. Bronchiectasis (Chronic) J47.9 COPD (chronic obstructive pulmonary disease) (Chronic) J44.9 No signs of exacerbation. Stop solumedrol. Monitor respiratory status. 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 Continue keppra and lamotrigine. Keppra level sent last night just prior to her receiving her evening dose. Current Medications: Current Medications Acetaminophen (Tylenol Tab*) 650 mg PO Q4H PRN PRN Reason: FEVER/PAIN Atorvastatin Calcium (Lipitor*) 40 mg PO 1700 [facility] Last Admin: 07/08/19 16:41 Dose: Not Given Dextrose (D50w Syringe 50 Ml*) 12.5 gm IV PUSH .FOR FS < 60 - SS PRN PRN Reason: FS < 60 Digoxin (Lanoxin Liq* Oralsyr) 0.125 mg PO 1700 [facility] Last Admin: 07/08/19 16:41 Dose: Not Given Enoxaparin Sodium (Lovenox(*)) 30 mg SUBCUT Q24H [facility] Last Admin: 07/08/19 09:05 Dose: 30 mg Famotidine (Pepcid Iv*) 20 mg IV SLOW PU BID [facility] Last Admin: 07/08/19 20:52 Dose: 20 mg Furosemide (Lasix Iv*) 20 mg IV Q8HR [facility] Last Admin: 07/09/19 06:21 Dose: 20 mg Haloperidol Lactate (Haldol Inj Iv/Im*) 2.5 mg IV SLOW PU Q8H PRN PRN Reason: AGITATION Last Admin: 07/08/19 13:43 Dose: 2.5 mg Heparin Sodium (Porcine) (Heparin Flush Picc/Ml/Cvc(*)) 0 ml FLUSH 0600,1800 [facility] Last Admin: 07/09/19 06:21 Dose: Not Given Hydralazine HCl (Apresoline Iv*) 5 mg IV SLOW PU Q4H PRN PRN Reason: SBP > 160 Last Admin: 06/28/19 19:46 Dose: 5 mg Piperacillin Sod/Tazobactam (Sod 3.375 gm/ Sodium Chloride) 100 mls @ 25 mls/ hr IVPB Q8H [facility] Last Admin: 07/09/19 06:20 Dose: 25 mls/hr Levetiracetam (Keppra Iv Premix*) 500 mg in 100 mls @ 400 mls/hr IV Q12H [facility] Last Admin: 07/08/19 20:52 Dose: 400 mls/hr Dextrose 500 ml/ Amino Acids 850 ml/ Sterile Water 150 ml/Fat Emulsion Intravenous 250 ml/ Sodium Chloride 25 meq/Potassium Chloride 50 meq/Potassium Phosphate 15 mmole/Calcium Gluconate 15 meq/Magnesium Sulfate 10 meq/ Multivitamins 10 ml/ Trace Metals 1 ml/ Nutrition ( Parenteral) 1,831.971 mls @ 76.332 mls/hr CENTR 1700 [facility] Last Admin: 07/08/19 16:41 Dose: 76.332 mls/hr Insulin Glargine (Lantus(*)) 24 units SUBCUT Q24H [facility] Insulin Human Lispro (Humalog*) 0 - 6 units SUBCUT Q6HR [facility]; Protocol Last Admin: 07/09/19 06:20 Dose: 2 units Lamotrigine (Lamictal Tab(*)) 50 mg PO BID [facility] Last Admin: 07/08/19 20:52 Dose: Not Given Levalbuterol HCl (Xopenex 0.63mg/3ml Neb*) 0.31 mg INH Q6H PRN PRN Reason: SOB/WHEEZING Last Admin: 06/25/19 21:39 Dose: 0.63 mg Methylprednisolone Sodium Succinate (Solu-Medrol 40 Mg) 20 mg IV Q8H [facility] Last Admin: 07/09/19 04:16 Dose: 20 mg Metoprolol Tartrate (Lopressor Iv*) 2.5 mg IV Q6H [facility] Last Admin: 07/09/19 04:15 Dose: 2.5 mg Miscellaneous (Ativan Pyxis Prado) 1 ea N/A .PYXIS PRADO PRN PRN Reason: PER PROTOCOL Morphine Sulfate (Morphine Inj (Syringe))*) 1 mg IV Q2H PRN PRN Reason: .PAIN Last Admin: 07/09/19 04:16 Dose: 1 mg Pharmacy Consult (Zosyn Per Pharmacy*) 1 note FOLLOW UP .ZOSYN PER PHARMACY [facility] Ramipril (Altace Cap*) 5 mg PO DAILY [facility] Last Admin: 07/08/19 09:02 Dose: Not Given Spironolactone (Aldactone Tab*) 12.5 mg PO DAILY [facility] Last Admin: 07/08/19 09:02 Dose: Not Given Home Medications: Home Medications Medication Instructions Recorded Confirmed Type Digoxin TAB* [Lanoxin TAB*] 0.125 mg PO DAILY 11/14/17 06/23/19 History levETIRAcetam TAB* [Keppra TAB*] 750 mg PO BID tab 11/16/17 06/23/19 Rx Atorvastatin* [Lipitor 20 MG*] 20 mg PO BEDTIME 12/01/18 06/23/19 History lamoTRIgine TAB(*) [Lamictal 100 mg PO BID 12/01/18 06/23/19 History TAB(*)] Carvedilol TAB* [Coreg TAB*] 3.125 mg PO BID #60 tab 06/19/19 06/23/19 Rx Furosemide TAB* [Lasix TAB*] 20 mg PO 0800 5 Days #30 tab 06/19/19 06/23/19 Rx Levalbuterol 0.63MG/3ML NEB* 0.31 mg INH Q6H PRN #30 neb.soln 06/19/19 06/23/19 Rx [Xopenex 0.63MG/3ML NEB*] Spironolactone TAB* [Aldactone TAB 12.5 mg PO DAILY #30 tab 06/19/19 06/23/19 Rx 25 MG*] predniSONE TAB* [Deltasone 20 MG 5 mg PO DAILY #10 tab 06/19/19 06/23/19 Rx TAB*] Cephalexin 500 mg PO QID 06/23/19 06/23/19 History Warfarin TAB(*) [Coumadin TAB(*)] 0.5 mg PO DAILY@1700 06/23/19 06/23/19 History Allergies: Allergies Allergy/AdvReac Type Severity Reaction Status Date / Time No Known Allergies Allergy Verified 06/23/19 04:24 Objective - Vital Signs Vital Signs: Vital Signs 07/08/19 07/08/19 07/08/19 11:15 11:34 12:51 Temperature 98.8 F Pulse Rate 78 Respiratory 22 20 24 Rate Blood Pressure 149/56 (mmHg) O2 Sat by Pulse 96 Oximetry 07/08/19 07/08/19 07/08/19 14:24 15:21 16:45 Temperature 97.3 F Pulse Rate 60 Respiratory 20 22 22 Rate Blood Pressure 118/66 (mmHg) O2 Sat by Pulse 95 Oximetry 07/08/19 07/08/19 07/08/19 17:59 19:15 20:55 Temperature 96.0 F Pulse Rate 110 Respiratory 20 28 22 Rate Blood Pressure 150/98 (mmHg) O2 Sat by Pulse 94 Oximetry 07/08/19 07/08/19 07/08/19 22:38 23:43 23:51 Temperature 97.4 F Pulse Rate 83 Respiratory 28 18 18 Rate Blood Pressure 153/80 (mmHg) O2 Sat by Pulse 96 Oximetry 07/09/19 07/09/19 07/09/19 03:42 04:16 06:00 Temperature 97.2 F Pulse Rate 90 Respiratory 18 18 16 Rate Blood Pressure 152/70 (mmHg) O2 Sat by Pulse 97 Oximetry - Intake and Output Intake and Output: Intake & Output 07/06/19 07/07/19 07/08/19 07/09/19 11:59 11:59 11:59 11:59 Intake Total 813 1056 545 518 Output Total 740 221 3307 4800 Balance 463 199 -9450 -3004 Weight 110 lb 105 lb 12.8 oz 104 lb 4.8 oz 108 lb 6.4 oz Intake: IV Fluids 300 892 145 102 ABX - ZOSYN 200 294 37 D5W 1/4 NS 40mEq K 593 100 Keppra 100 15 NS (0.9%) 5 45 50 IVPB 164 400 416 ABX - ZOSYN 164 300 211 Keppra 100 205 Medicated IV 513 D5 1/4 20 K+ 513 Oral 0 0 0 0 Output: Urine 0 Joya 608 745 0902 4800 Other: # Bowel Movements 1 Estimated Stool Amount Small ADLs: Meal Record Start: 06/23/19 11: 08 Freq: ,,18 Status: Complete Protocol: Created 06/23/19 11:08 System (Rec: 06/23/19 11:08 System PMRU-C05) ADLs: Meal Record Start: 06/23/19 15: 24 Freq: DAILY@0900,1400,1800 Status: Active Protocol: Created 06/23/19 15:24 RQH2522 (Rec: 06/23/19 15:24 [id number] ICU-C25) Document 06/23/19 18:00 BVP1107 (Rec: 06/23/19 20:33 VCO3343 TELE-C07) Document 06/24/19 09:00 ZPR2212 (Rec: 06/24/19 10:22 HPX3757 TELE-C03) Document 06/24/19 18:00 PTP6159 (Rec: 06/24/19 18:15 XPR5923 TELE-C07) Document 06/25/19 08:58 QQB0008 (Rec: 06/25/19 08:59 ZOP9766 TELE-M11) Document 06/25/19 13:57 IOZ5325 (Rec: 06/25/19 13:59 ZTL7705 TELE-M11) Document 06/25/19 18:00 QAN8564 (Rec: 06/25/19 22:40 NIN4990 TELE-C05) Document 06/26/19 10:00 UER2501 (Rec: 06/26/19 11:06 HYO8226 ICU-C15) Document 06/26/19 18:00 AIF7460 (Rec: 06/26/19 18:05 FYX0859 ICU-L03) Document 06/28/19 11:23 JTW0638 (Rec: 06/28/19 11:23 JEM7341 TELE-M21) Document 06/28/19 13:25 WVK1715 (Rec: 06/28/19 13:25 GKU3615 TELE-M21) Document 06/28/19 21:48 EWS9253 (Rec: 06/28/19 21:48 PUN0898 TELE-C11) Document 06/29/19 04:22 AWZ3258 (Rec: 06/29/19 04:23 VGY3600 TELE-M21) Document 06/29/19 05:29 OXR9071 (Rec: 06/29/19 05:29 BZQ2959 TELE-M21) Document 06/30/19 18:13 UNC2103 (Rec: 06/30/19 18:13 LJT4768 TELE-M21) Document 07/01/19 09:50 QMV9781 (Rec: 07/01/19 09:50 FUU7093 TELE-M21) Document 07/01/19 13:21 FRU4794 (Rec: 07/01/19 13:21 TJJ2643 TELE-M21) Document 07/01/19 19:39 CPX8224 (Rec: 07/01/19 19:39 LFN2592 TELE-M21) Document 07/02/19 14:00 EUR1099 (Rec: 07/02/19 14:47 UZF7483 TELE-C05) Document 07/02/19 18:00 VKL9355 (Rec: 07/02/19 18:28 NLR7596 TELE-M21) Document 07/03/19 09:00 WDH8501 (Rec: 07/03/19 10:47 JSK4385 TELE-C01) Document 07/03/19 12:58 UDJ8727 (Rec: 07/03/19 12:58 CFW7286 TELE-C01) Document 07/03/19 18:00 GVU3740 (Rec: 07/03/19 20:00 KEM4597 TELE-C08) Document 07/04/19 09:00 KLS1239 (Rec: 07/04/19 09:37 WAO9058 TELE-M07) Document 07/04/19 12:44 VJP3521 (Rec: 07/04/19 12:44 BUL4465 TELE-M07) Document 07/04/19 18:00 BLC0949 (Rec: 07/04/19 18:07 WRO4365 TELE-M07) Document 07/05/19 09:00 IUD7013 (Rec: 07/05/19 14:02 FGE3563 TELE-C11) Document 07/05/19 14:00 ITG0851 (Rec: 07/05/19 14:04 SHF9833 TELE-C11) Document 07/05/19 18:00 JDT2468 (Rec: 07/05/19 18:21 HPC1236 TELE-M15) Document 07/06/19 09:00 OGB9609 (Rec: 07/06/19 12:05 LLH0864 TELE-C08) Document 07/06/19 14:00 BSR3515 (Rec: 07/06/19 14:43 MTY2616 TELE-C03) Document 07/06/19 18:00 KXL0084 (Rec: 07/06/19 22:02 XBW5570 TELE-C09) Document 07/07/19 18:00 TWW2265 (Rec: 07/07/19 20:04 JNX7588 TELE-C11) Document 07/08/19 09:00 VXY9134 (Rec: 07/08/19 09:54 AVN9788 TELE-C10) Document 07/08/19 13:50 FAV3971 (Rec: 07/08/19 13:51 AFL1887 TELE-C10) Document 07/08/19 18:00 GQI1936 (Rec: 07/08/19 20:09 RMB4355 TELE-C10) Document 07/09/19 08:42 PPG4518 (Rec: 07/09/19 08:43 JFH1874 TELE-C11) ADLs: Meal Record Start: 06/25/19 22: 26 Freq: Status: Complete Protocol: Created 06/25/19 22:26 AEJ5451 (Rec: 06/25/19 22:26 ASF9240 ICU-C25) ADLs: Meal Record Start: 06/28/19 12: 17 Freq: Status: Cancelled Protocol: Created 06/28/19 12:17 YDE8164 (Rec: 06/28/19 12:17 WFU2868 TELE-M21) Intake and Output Start: 06/23/19 04: 23 Freq: Status: Inactive Protocol: Created 06/23/19 04:23 System (Rec: 06/23/19 04:23 System EDRM-C10) Intake and Output Start: 06/23/19 11: 08 Freq: Q1HR Status: Inactive Protocol: Created 06/23/19 11:08 System (Rec: 06/23/19 11:08 System PMRU-C05) Document 06/23/19 14:59 PSJ9414 (Rec: 06/23/19 15:00 UCC5791 ICU-C25) Intake and Output Start: 06/23/19 15: 24 Freq: DAILY@0600,1400,2200 Status: Inactive Protocol: Document 06/23/19 12:00 ZHN4233 (Rec: 06/23/19 15:26 AZI2134 ICU-C25) Created 06/23/19 15:24 OJJ2803 (Rec: 06/23/19 15:24 SZE1148 ICU-C25) Document 06/23/19 21:29 HDN6388 (Rec: 06/23/19 21:30 MFN5551 TELE-C07) Document 06/24/19 06:00 SQY8606 (Rec: 06/24/19 06:06 XWV9590 TELE-C09) Document 06/24/19 22:00 DIQ2994 (Rec: 06/24/19 22:36 QGW1819 TELE-C07) Document 06/25/19 05:51 QUF2211 (Rec: 06/25/19 05:52 OUF5368 TELE-C07) Document 06/25/19 12:11 OXF1312 (Rec: 06/25/19 12:12 OPZ9264 TELE-M11) Intake and Output Start: 06/25/19 22: 26 Freq: 06,14,2200 Status: Active Protocol: Created 06/25/19 22:26 HDL6514 (Rec: 06/25/19 22:26 UCD7081 ICU-C25) Document 06/25/19 23:00 ASZ5075 (Rec: 06/25/19 23:05 HPH2127 ICU-C25) Document 06/25/19 23:28 XNK0438 (Rec: 06/25/19 23:30 EHL4249 ICU-C16) Document 06/25/19 23:47 JON3808 (Rec: 06/25/19 23:47 JUT7602 ICU-C25) Document 06/26/19 01:00 LYB6048 (Rec: 06/26/19 02:24 WOK5110 ICU-C25) Document 06/26/19 02:00 ETQ7058 (Rec: 06/26/19 02:24 QTX7542 ICU-C25) Document 06/26/19 03:00 RZI8341 (Rec: 06/26/19 03:21 GYS1695 ICU-C25) Document 06/26/19 04:00 DHU5912 (Rec: 06/26/19 04:13 PGR4849 ICU-C25) Document 06/26/19 05:00 API4565 (Rec: 06/26/19 05:01 TYQ0879 ICU-C25) Document 07/29/19 06:00 GXP2296 (Rec: 06/26/19 06:05 IJA8538 ICU-C25) Document 06/26/19 07:00 CKQ9496 (Rec: 06/26/19 07:58 ZHB1598 ICU-C15) Document 06/26/19 07:58 CPH8526 (Rec: 06/26/19 07:58 PPX8690 ICU-C15) Document 06/26/19 09:00 SLF1683 (Rec: 06/26/19 09:41 TDO5659 ICU-C15) Document 06/26/19 10:00 QQG1780 (Rec: 06/26/19 11:07 UMJ9176 ICU-C15) Document 06/26/19 11:00 HWP9761 (Rec: 06/26/19 11:07 EJK3220 ICU-C15) Document 06/26/19 12:00 JWI8556 (Rec: 06/26/19 12:14 ORK4735 ICU-C15) Document 06/26/19 13:00 UJS1875 (Rec: 06/26/19 13:22 GAG8661 ICU-C15) Document 06/26/19 14:00 NVR3359 (Rec: 06/26/19 17:56 ROH1395 ICU-L03) Document 06/26/19 15:00 ZBY2009 (Rec: 06/26/19 17:57 NXK0752 ICU-L03) Document 06/26/19 16:00 FLI7836 (Rec: 06/26/19 17:57 ROJ1738 ICU-L03) Document 06/26/19 17:00 AUL8068 (Rec: 06/26/19 17:57 PCP9787 ICU-L03) Document 06/26/19 17:57 AMP5681 (Rec: 06/26/19 17:57 AXS7401 ICU-L03) Document 06/26/19 19:00 RJT7862 (Rec: 06/26/19 19:08 KFK7653 ISDEMO-M03 ) Document 06/26/19 20:00 TJS9222 (Rec: 06/26/19 20:05 VJD1641 ICU-C15) Document 06/26/19 21:00 XKW7430 (Rec: 06/26/19 22:09 STP2310 ISDEMO-M03 ) Document 06/26/19 22:00 OTH4440 (Rec: 06/26/19 22:09 FZC6070 ISDEMO-M03 ) Document 06/26/19 23:00 LDY5916 (Rec: 06/26/19 23:20 HFY1659 ICU-C15) Document 06/26/19 23:59 LBI8872 (Rec: 06/26/19 23:59 KIV7608 ICU-C15) Document 06/27/19 01:00 GSI9223 (Rec: 06/27/19 01:08 CBW0639 ICU-C15) Document 06/27/19 02:00 EUP6558 (Rec: 06/27/19 02:03 TCI8098 ICU-C15) Document 06/27/19 03:00 RLC3405 (Rec: 06/27/19 05:10 LXF9847 ICU-C15) Document 06/27/19 04:00 YVD3429 (Rec: 06/27/19 05:10 FHF6644 ICU-C15) Document 06/27/19 06:00 YJC7013 (Rec: 06/27/19 06:02 BYH5235 ICU-C15) Document 06/27/19 08:00 FQJ7983 (Rec: 06/27/19 08:07 XXE1327 ICU-C15) Document 06/27/19 09:31 TZZ3406 (Rec: 06/27/19 09:31 GIW8161 ICU-C15) Document 06/27/19 11:00 GSZ1346 (Rec: 06/27/19 11:10 NTP1485 ICU-C15) Document 06/27/19 13:45 YFW9329 (Rec: 06/27/19 13:56 JZG5314 ICU-C15) Document 07/02/19 07:36 ROS7009 (Rec: 07/02/19 07:36 YRY4572 TELE-M20) Document 07/02/19 14:00 UKH6396 (Rec: 07/02/19 14:47 KIY6915 TELE-C05) Document 07/02/19 15:34 YDO4117 (Rec: 07/02/19 15:34 DJP1280 TELE-M20) Document 07/02/19 21:53 WPC3026 (Rec: 07/02/19 21:53 OMJ6188 TELE-M21) Document 07/03/19 06:00 WEO8415 (Rec: 07/03/19 07:27 QCL0297 TELE-C10) Document 07/03/19 14:00 GLI9195 (Rec: 07/03/19 14:58 VJI8039 TELE-C01) Document 07/03/19 21:47 OJO2251 (Rec: 07/03/19 21:47 NYE9257 TELE-C08) Document 07/04/19 03:30 QXM8698 (Rec: 07/04/19 07:00 GSJ6604 MED-M16) Document 07/04/19 06:00 LLH3117 (Rec: 07/04/19 06:04 WGK5996 TELE-C08) Document 07/04/19 13:35 VXZ2768 (Rec: 07/04/19 13:36 MAG7837 TELE-M07) Document 07/04/19 21:32 HHB7899 (Rec: 07/04/19 21:37 IJX9407 TELE-M07) Document 07/05/19 06:00 VZP3735 (Rec: 07/05/19 07:03 JBF7899 TELE-C10) Document 07/05/19 14:00 AMZ2072 (Rec: 07/05/19 14:30 MHA3101 TELE-C11) Document 07/05/19 22:00 XED3846 (Rec: 07/05/19 23:26 PBV0541 TELE-C33) Document 07/06/19 05:48 WEQ6354 (Rec: 07/06/19 05:49 TZV8883 TELE-M13) Document 07/06/19 14:00 DYH1808 (Rec: 07/06/19 14:43 SJH9564 TELE-C03) Document 07/06/19 22:00 TEJ4923 (Rec: 07/06/19 22:05 FNA4659 TELE-C09) Document 07/07/19 03:57 WPP2120 (Rec: 07/07/19 03:57 JQC4970 TELE-C13) Document 07/07/19 05:37 KTX5169 (Rec: 07/07/19 05:37 CRJ9135 TELE-C13) Document 07/07/19 22:00 JOC4109 (Rec: 07/07/19 22:42 XXF1270 TELE-C11) Document 07/08/19 06:00 PWJ7078 (Rec: 07/08/19 07:55 JSI4609 TELE-C11) Document 07/08/19 13:51 VZI1438 (Rec: 07/08/19 13:51 TAZ0368 TELE-C10) Document 07/08/19 22:00 ZZL3690 (Rec: 07/08/19 22:40 XDG2463 TELE-C10) Document 07/09/19 06:00 CWW4459 (Rec: 07/09/19 06:09 YUH3682 TELE-C10) - Physical Exam General Physical Exam Comment: She is restless and has pulled off her O2 and undone her diapers. She is moving around, particularly with her right arm. Lungs and Chest: Yes: Chest Expansion Full, Chest Expansion Symetrica, Percussion Note Resonant, Vessicular Breath Sounds - much improved. No: Crackles, Wheezes, Respiratory Distress Heart Rate and Rhythm: Irregular Additional Cardiovascular: Yes: Normal Heart Sounds, Heart Murmur. No: Pedal Edema Abdominal Exam: Yes: Soft. No: Distention, Abdominal Tenderness Results - Results Lab Results: Laboratory Results - last 24 hr 07/08/19 07/08/19 07/08/19 11:41 11:45 12:58 Sodium 149 H Potassium 4.1 Chloride 115 H Carbon Dioxide 23 Anion Gap 11 BUN 41 H Creatinine 1.00 H Est GFR ( Amer) 64.7 Est GFR (Non-Af Amer) 53.5 BUN/Creatinine Ratio 41.0 H Glucose 372 H POC Glucose (mg/dL) 199 H Calcium 9.1 Phosphorus 2.4 L Magnesium 2.1 Total Bilirubin 3.60 H AST 28 ALT 42 Alkaline Phosphatase 117 H Total Protein 6.2 L Albumin 3.4 Globulin 2.8 Albumin/Globulin Ratio 1.2 Prealbumin TNP 21 Triglycerides 214 Cholesterol 144 07/08/19 07/08/19 07/09/19 17:10 23:43 06:13 Sodium Potassium Chloride Carbon Dioxide Anion Gap BUN Creatinine Est GFR ( Amer) Est GFR (Non-Af Amer) BUN/Creatinine Ratio Glucose POC Glucose (mg/dL) 149 H 202 H 213 H Calcium Phosphorus Magnesium Total Bilirubin AST ALT Alkaline Phosphatase Total Protein Albumin Globulin Albumin/Globulin Ratio Prealbumin Triglycerides Cholesterol 07/09/19 07:25 Sodium 148 H Potassium 3.2 L Chloride 111 Carbon Dioxide 29 Anion Gap 8 BUN 46 H Creatinine 0.99 H Est GFR ( Amer) 65.5 Est GFR (Non-Af Amer) 54.1 BUN/Creatinine Ratio 46.5 H Glucose 140 H POC Glucose (mg/dL) Calcium 9.2 Phosphorus Magnesium Total Bilirubin AST ALT Alkaline Phosphatase Total Protein Albumin Globulin Albumin/Globulin Ratio Prealbumin Triglycerides Cholesterol Assessment - Problem List Assessment: Patient Problems ARDS (adult respiratory distress syndrome) (Acute) Acute renal failure (Acute) Altered mental state (Acute) Anemia (Acute) CHF, acute (Acute) Coronary artery disease (Acute) Hypernatremia (Acute) Hypokalemia (Acute) Leukocytosis (Acute) Lower respiratory tract infection (Acute) On total parenteral nutrition (Acute) Pulmonary edema (Acute) Steroid-induced diabetes (Acute) Alcohol dependence (Chronic) Anticoagulated (Chronic) Atrial fibrillation (Chronic) Bronchiectasis (Chronic) COPD (chronic obstructive pulmonary disease) (Chronic) DVT prophylaxis (Chronic) 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 ARDS remains the major issue, combined with pulmonary hypertension and CHF due to mitral valve disease and diastolic dysfunction. She is doing better today after giving her diuretic therapy. Her lungs sound much better. I am cutting back on her steroids On total parenteral nutrition (Acute) She is tolerating this with tid furosemide 20 mg IV Acute renal failure (Acute)Hypokalemia (Acute) Her kidney function is fine, but she is hypokalemic Altered mental state (Acute) This is becoming her major problem as it is stopping enteral nutrition and rehabilitation. There are factors we can't change (hospitalization, age, history of multiple cerebral infarctions with mild dementia, recent severe infection). But there are a few factors we can alter: * steroid encephalopathy * use of opioids * anticonvulsants I will focus on correcting these Leukocytosis (Acute) Anemia (Acute) I haven't checked these today. However, the acute phase response is a major contributor. 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 He agrees with the manage plan
[2019-07-09] MEDS: levETIRAcetam 500 MG IVPREMIX* 500 MG/100 ML BAG IV SCH (10:39)
[2019-07-09] MEDS: Famotidine IV* 10 MG/ML 2 ML (20 mg) IV SLOW PU SCH ×2 (11:12→22:11)
[2019-07-09] MEDS: Insulin GLARGINE(*) 1 UNITS UNIT SUBCUT SCH (11:19)
[2019-07-09] MEDS: Enoxaparin(*) 30 MG/0.3 ML SYR SUBCUT SCH (11:19)
[2019-07-09] MEDS: Spironolactone TAB* 25 MG PO SCH (11:42)
[2019-07-09] MEDS: lamoTRIgine TAB(*) 100 MG PO SCH ×2 (11:42→22:30)
[2019-07-09] MEDS: Ramipril CAP* 5 MG PO SCH (11:42)
[2019-07-09] MEDS: levETIRAcetam IV* 250 MG in NS 0.9% 100 ML* 100 ML IVPB SCH ×2 (12:12→22:06)
[2019-07-09] MEDS: Haloperidol INJ IV/IM* 5 MG/ML AMP IV SLOW PU PRN ×2 (13:50→22:16)
[2019-07-09 15:52] LABS: Albumin 3.6 g/dL (3.2-5.2); Albumin/Globulin Ratio 1.2 (1-3); BUN/Creatinine Ratio 49.5 (8-20); Calcium 9.2 mg/dL (8.6-10.3); EGFR Non-African American 55.4 (>60); Magnesium 1.9 mg/dL (1.9-2.7); Phosphorus 2.1 mg/dL (2.5-5.0); Potassium 3.3 mmol/L (3.5-5.0); Total Bilirubin 4.1 mg/dL (0.2-1.0); Total Protein 6.6 g/dL (6.4-8.9)
[2019-07-09] MEDS: TPN* 24 HR with Dextrose 50% Water* 500 ML, Amino Acid Infusion 10%* 850 ML, Sterile Wa... CENTR SCH ×12 (17:55)
[2019-07-09] MEDS: DIGOXIN PO SCH (19:06)
[2019-07-09] MEDS: ORALSYR PO SCH (19:06)
[2019-07-09] MEDS: Atorvastatin* 40 MG TAB PO SCH (19:06)
[2019-07-10] MEDS: Insulin LISPRO* 1 UNITS UNIT SUBCUT SCH ×4 (00:44→18:03)
[2019-07-10] MEDS: Morphine INJ* 2 MG/ML 1 ML SYRINGE (TWO MG - NEW SYRINGE VERSION) IV PRN ×6 (03:29→21:37)
[2019-07-10] MEDS: Metoprolol Tartrate IV* 1 MG/ML 5 ML VIAL IV SCH ×3 (03:42→17:15)
[2019-07-10] MEDS: Furosemide IV* 10 MG/ML 2 ML VIAL (20 MG) IV SCH ×2 (05:31→14:15)
[2019-07-10] MEDS: ZOSYN 3.375 GM Q8H per EXTENDED INFUSION IVPB SCH ×4 (05:36→14:18)
[2019-07-10 06:00] LABS: BUN/Creatinine Ratio 55.7 (8-20); Calcium 8.9 mg/dL (8.6-10.3); EGFR Non-African American 55.4 (>60); Potassium 3.9 mmol/L (3.5-5.0)
--- NOTE | 2019-07-10 08:40 | PN ---
Subjective - Subjective Reason for Note: Progress Note History: She is being bathed. She is moving all limbs and making vocalizations, but not saying anything. She is not making purposeful movements. Active Problems: Active Problems ARDS (adult respiratory distress syndrome) (Acute) J80 Acute renal failure (Acute) Altered mental state (Acute) R41.82 Pt is even more confused and agitated today compared to yesterday at my visit. Cause of her confusion is not clear. There is no evidence of infection. CT brain negative for any acute findings. ? hospital acquired delirium in the setting of a person who at baseline is mild to moderately confused (per [facility] staff) vs related to EtOH withdrawl (seems unlikely as pt has no other signs of withdrawl) vs non convulsive status (also unlikely given how verbal and active she has been). I trialed seroquel 25mg last night and reportedly she had an ok night. Given the screaming and marked agitation at this time will give haldol 2mg IV x1 now to see if she will settle and be more appropriate with her care. Anemia (Acute) D64.9 CHF, acute (Acute) I50.9 Pt was felt to have acute diastolic CHF/flash pulmonary edema on presenation. She required BiPAP for acute hypoxic resp failure. This is now resolved. She is now on RA. Resume lasix and spironolactone- I doubt she will take her meds at this time. Coronary artery disease (Acute) I25.10 Hypernatremia (Acute) E87.0 Hypokalemia (Acute) E87.6 Leukocytosis (Acute) D72.829 Lower respiratory tract infection (Acute) J22 On total parenteral nutrition (Acute) Z78.9 Pulmonary edema (Acute) J81.1 Steroid-induced diabetes (Acute) Alcohol dependence (Chronic) F10.20 As pt is unable to tell me anything useful, it is unclear if she is still drinking. She does not appear to be withdrawling from EtOH. Anticoagulated (Chronic) Z79.01 Atrial fibrillation (Chronic) I48.91 Pt is in afib but controlled rate. Continue coreg and digoxin and coumadin. Recheck INR tomorrow. Pt refused labs this AM. Bronchiectasis (Chronic) J47.9 COPD (chronic obstructive pulmonary disease) (Chronic) J44.9 No signs of exacerbation. Stop solumedrol. Monitor respiratory status. 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 Continue keppra and lamotrigine. Keppra level sent last night just prior to her receiving her evening dose. Current Medications: Current Medications Acetaminophen (Tylenol Tab*) 650 mg PO Q4H PRN PRN Reason: FEVER/PAIN Atorvastatin Calcium (Lipitor*) 40 mg PO 1700 [facility] Last Admin: 07/09/19 19:06 Dose: Not Given Dextrose (D50w Syringe 50 Ml*) 12.5 gm IV PUSH .FOR FS < 60 - SS PRN PRN Reason: FS < 60 Digoxin (Lanoxin Liq* Oralsyr) 0.125 mg PO 1700 [facility] Last Admin: 07/09/19 19:06 Dose: Not Given Enoxaparin Sodium (Lovenox(*)) 30 mg SUBCUT Q24H [facility] Last Admin: 07/09/19 11:19 Dose: 30 mg Famotidine (Pepcid Iv*) 20 mg IV SLOW PU BID [facility] Last Admin: 07/09/19 22:11 Dose: 20 mg Furosemide (Lasix Iv*) 20 mg IV Q8HR [facility] Last Admin: 07/10/19 05:31 Dose: 20 mg Haloperidol Lactate (Haldol Inj Iv/Im*) 2.5 mg IV SLOW PU Q8H PRN PRN Reason: AGITATION Last Admin: 07/09/19 22:16 Dose: 2.5 mg Heparin Sodium (Porcine) (Heparin Flush Picc/Ml/Cvc(*)) 0 ml FLUSH 0600,1800 [facility] Last Admin: 07/10/19 06:19 Dose: Not Given Hydralazine HCl (Apresoline Iv*) 5 mg IV SLOW PU Q4H PRN PRN Reason: SBP > 160 Last Admin: 06/28/19 19:46 Dose: 5 mg Piperacillin Sod/Tazobactam (Sod 3.375 gm/ Sodium Chloride) 100 mls @ 25 mls/ hr IVPB Q8H [facility] Last Admin: 07/10/19 05:36 Dose: 25 mls/hr Levetiracetam 250 mg/ Sodium (Chloride) 102.5 mls @ 410 mls/hr IVPB Q12H [facility] Last Admin: 07/09/19 22:06 Dose: 410 mls/hr Dextrose 500 ml/ Amino Acids 850 ml/ Sterile Water 150 ml/Fat Emulsion Intravenous 250 ml/ Sodium Chloride 25 meq/Potassium Chloride 80 meq/Potassium Phosphate 15 mmole/Calcium Gluconate 15 meq/Magnesium Sulfate 10 meq/ Multivitamins 10 ml/ Trace Metals 1 ml/ Nutrition ( Parenteral) 1,846.971 mls @ 76.957 mls/hr CENTR 1700 [facility] Last Admin: 07/09/19 17:55 Dose: 76.957 mls/hr Insulin Glargine (Lantus(*)) 18 units SUBCUT Q24H [facility] Last Admin: 07/09/19 11:19 Dose: 18 units Insulin Human Lispro (Humalog*) 0 - 6 units SUBCUT Q6HR [facility]; Protocol Last Admin: 07/10/19 05:50 Dose: 2 units Lamotrigine (Lamictal Tab(*)) 50 mg PO BID [facility] Last Admin: 07/09/19 22:30 Dose: 50 mg Levalbuterol HCl (Xopenex 0.63mg/3ml Neb*) 0.31 mg INH Q6H PRN PRN Reason: SOB/WHEEZING Last Admin: 06/25/19 21:39 Dose: 0.63 mg Methylprednisolone Sodium Succinate (Solu-Medrol 40 Mg) 10 mg IV BID [facility] Last Admin: 07/09/19 22:11 Dose: 10 mg Metoprolol Tartrate (Lopressor Iv*) 2.5 mg IV Q6H [facility] Last Admin: 07/10/19 03:42 Dose: 2.5 mg Morphine Sulfate (Morphine Inj (Syringe))*) 1 mg IV Q2H PRN PRN Reason: .PAIN Last Admin: 07/10/19 05:30 Dose: 1 mg Pharmacy Consult (Zosyn Per Pharmacy*) 1 note FOLLOW UP .ZOSYN PER PHARMACY [facility] Ramipril (Altace Cap*) 5 mg PO DAILY [facility] Last Admin: 07/09/19 11:42 Dose: 5 mg Spironolactone (Aldactone Tab*) 12.5 mg PO DAILY [facility] Last Admin: 07/09/19 11:42 Dose: 12.5 mg Home Medications: Home Medications Medication Instructions Recorded Confirmed Type Digoxin TAB* [Lanoxin TAB*] 0.125 mg PO DAILY 11/14/17 06/23/19 History levETIRAcetam TAB* [Keppra TAB*] 750 mg PO BID tab 11/16/17 06/23/19 Rx Atorvastatin* [Lipitor 20 MG*] 20 mg PO BEDTIME 12/01/18 06/23/19 History lamoTRIgine TAB(*) [Lamictal 100 mg PO BID 12/01/18 06/23/19 History TAB(*)] Carvedilol TAB* [Coreg TAB*] 3.125 mg PO BID #60 tab 06/19/19 06/23/19 Rx Furosemide TAB* [Lasix TAB*] 20 mg PO 0800 5 Days #30 tab 06/19/19 06/23/19 Rx Levalbuterol 0.63MG/3ML NEB* 0.31 mg INH Q6H PRN #30 neb.soln 06/19/19 06/23/19 Rx [Xopenex 0.63MG/3ML NEB*] Spironolactone TAB* [Aldactone TAB 12.5 mg PO DAILY #30 tab 06/19/19 06/23/19 Rx 25 MG*] predniSONE TAB* [Deltasone 20 MG 5 mg PO DAILY #10 tab 06/19/19 06/23/19 Rx TAB*] Cephalexin 500 mg PO QID 06/23/19 06/23/19 History Warfarin TAB(*) [Coumadin TAB(*)] 0.5 mg PO DAILY@1700 06/23/19 06/23/19 History Allergies: Allergies Allergy/AdvReac Type Severity Reaction Status Date / Time No Known Allergies Allergy Verified 06/23/19 04:24 Objective - Vital Signs Vital Signs: Vital Signs 07/09/19 07/09/19 07/09/19 12:00 16:00 16:21 Temperature 96.8 F Pulse Rate 94 97 Respiratory 20 16 20 Rate Blood Pressure 148/79 111/70 (mmHg) O2 Sat by Pulse 98 98 Oximetry 07/09/19 07/09/19 07/09/19 18:08 20:00 20:02 Temperature 97.6 F 97.8 F Pulse Rate 110 105 Respiratory 18 24 18 Rate Blood Pressure 154/77 136/73 (mmHg) O2 Sat by Pulse 97 94 Oximetry 07/09/19 07/09/19 07/09/19 20:30 21:15 23:46 Temperature Pulse Rate Respiratory 24 24 28 Rate Blood Pressure (mmHg) O2 Sat by Pulse Oximetry 07/10/19 07/10/19 07/10/19 00:31 03:29 03:58 Temperature 97.3 F Pulse Rate 115 Respiratory 16 18 18 Rate Blood Pressure 121/76 (mmHg) O2 Sat by Pulse 100 Oximetry 07/10/19 07/10/19 04:25 05:30 Temperature Pulse Rate Respiratory 20 18 Rate Blood Pressure (mmHg) O2 Sat by Pulse Oximetry - Intake and Output Intake and Output: Intake & Output 07/07/19 07/08/19 07/09/19 07/10/19 11:59 11:59 11:59 11:59 Intake Total 1056 912 474 5758 Output Total 435 2000 4800 2400 Balance 354 -4200 -0833 1303 Weight 105 lb 12.8 oz 104 lb 4.8 oz 108 lb 6.4 oz 101 lb 8 oz Intake: IV Fluids 892 145 102 200 ABX - ZOSYN 294 37 100 D5W 1/4 NS 40mEq K 593 100 Keppra 15 NS (0.9%) 5 45 50 100 IVPB 164 400 416 403 ABX - ZOSYN 164 300 211 303 Keppra 100 205 100 TPN/PPN 1800 Oral 0 0 0 0 Joya Irrigate Amount 1300 Output: Urine 0 Joya 435 2000 4800 2400 Other: Estimated Void Large # Bowel Movements 1 0 Estimated Stool Amount Small # Voids 1 ADLs: Meal Record Start: 06/23/19 11: 08 Freq: 09,13,18 Status: Complete Protocol: Created 06/23/19 11:08 System (Rec: 06/23/19 11:08 System RU-C05) ADLs: Meal Record Start: 06/23/19 15: 24 Freq: DAILY@0900,1400,1800 Status: Active Protocol: Created 06/23/19 15:24 [id number] (Rec: 06/23/19 15:24 XBC2042 ICU-C25) Document 06/23/19 18:00 OXZ8758 (Rec: 06/23/19 20:33 KEZ6346 TELE-C07) Document 06/24/19 09:00 NJH9318 (Rec: 06/24/19 10:22 PXZ8145 TELE-C03) Document 06/24/19 18:00 TYQ5047 (Rec: 06/24/19 18:15 QBK0948 TELE-C07) Document 06/25/19 08:58 XME3306 (Rec: 06/25/19 08:59 QCU7065 TELE-M11) Document 06/25/19 13:57 EII5589 (Rec: 06/25/19 13:59 ZJW7016 TELE-M11) Document 06/25/19 18:00 NXN6269 (Rec: 06/25/19 22:40 NDN1658 TELE-C05) Document 06/26/19 10:00 BYP6974 (Rec: 06/26/19 11:06 OKF0330 ICU-C15) Document 06/26/19 18:00 KKS1941 (Rec: 06/26/19 18:05 OLP8431 ICU-L03) Document 06/28/19 11:23 TDR3779 (Rec: 06/28/19 11:23 ULF6293 TELE-M21) Document 06/28/19 13:25 LCM7406 (Rec: 06/28/19 13:25 TXV7305 TELE-M21) Document 06/28/19 21:48 CZG6008 (Rec: 06/28/19 21:48 JFT7817 TELE-C11) Document 06/29/19 04:22 RJW5391 (Rec: 06/29/19 04:23 KRG5593 TELE-M21) Document 06/29/19 05:29 GRJ9763 (Rec: 06/29/19 05:29 PKG7597 TELE-M21) Document 06/30/19 18:13 HJO8948 (Rec: 06/30/19 18:13 UWG4199 TELE-M21) Document 07/01/19 09:50 BUS1980 (Rec: 07/01/19 09:50 GYB2949 TELE-M21) Document 07/01/19 13:21 MXM5928 (Rec: 07/01/19 13:21 DAE5882 TELE-M21) Document 07/01/19 19:39 OQW3705 (Rec: 07/01/19 19:39 TNY3489 TELE-M21) Document 07/02/19 14:00 GAV2465 (Rec: 07/02/19 14:47 MWL5091 TELE-C05) Document 07/02/19 18:00 TDD8408 (Rec: 07/02/19 18:28 QRK0919 TELE-M21) Document 07/03/19 09:00 XEY6872 (Rec: 07/03/19 10:47 MPJ0499 TELE-C01) Document 07/03/19 12:58 HGH1828 (Rec: 07/03/19 12:58 VVL7852 TELE-C01) Document 07/03/19 18:00 PLA3987 (Rec: 07/03/19 20:00 CSQ0780 TELE-C08) Document 07/04/19 09:00 LGR6678 (Rec: 07/04/19 09:37 RYT3412 TELE-M07) Document 07/04/19 12:44 STJ0182 (Rec: 07/04/19 12:44 FQR2752 TELE-M07) Document 07/04/19 18:00 BHZ7990 (Rec: 07/04/19 18:07 TTA4545 TELE-M07) Document 07/05/19 09:00 DKQ2004 (Rec: 07/05/19 14:02 ZUX6895 TELE-C11) Document 07/05/19 14:00 RJY4384 (Rec: 07/05/19 14:04 YCI8207 TELE-C11) Document 07/05/19 18:00 SMP6643 (Rec: 07/05/19 18:21 UDU9746 TELE-M15) Document 07/06/19 09:00 XXW8196 (Rec: 07/06/19 12:05 PMU9037 TELE-C08) Document 07/06/19 14:00 WKD7343 (Rec: 07/06/19 14:43 BIF9947 TELE-C03) Document 07/06/19 18:00 CZH7506 (Rec: 07/06/19 22:02 QHH1437 TELE-C09) Document 07/07/19 18:00 YAN2131 (Rec: 07/07/19 20:04 HFA1800 TELE-C11) Document 07/08/19 09:00 QBA3767 (Rec: 07/08/19 09:54 EBK0540 TELE-C10) Document 07/08/19 13:50 JKM7703 (Rec: 07/08/19 13:51 AUY1508 TELE-C10) Document 07/08/19 18:00 QTS7080 (Rec: 07/08/19 20:09 YAL1014 TELE-C10) Document 07/09/19 08:42 TWK3611 (Rec: 07/09/19 08:43 XIJ6502 TELE-C11) Document 07/09/19 13:14 XEU9420 (Rec: 07/09/19 13:14 YWF4361 TELE-C11) Document 07/09/19 18:00 LUC6235 (Rec: 07/09/19 21:14 GDF3009 MED-C09) ADLs: Meal Record Start: 06/25/19 22: 26 Freq: Status: Complete Protocol: Created 06/25/19 22:26 XMW1906 (Rec: 06/25/19 22:26 WZY5961 ICU-C25) ADLs: Meal Record Start: 06/28/19 12: 17 Freq: Status: Cancelled Protocol: Created 06/28/19 12:17 LKZ3694 (Rec: 06/28/19 12:17 TOI3117 TELE-M21) Intake and Output Start: 06/23/19 04: 23 Freq: Status: Inactive Protocol: Created 06/23/19 04:23 System (Rec: 06/23/19 04:23 System EDRM-C10) Intake and Output Start: 06/23/19 11: 08 Freq: Q1HR Status: Inactive Protocol: Created 06/23/19 11:08 System (Rec: 06/23/19 11:08 System PMRU-C05) Document 06/23/19 14:59 GXV1988 (Rec: 06/23/19 15:00 EQR4185 ICU-C25) Intake and Output Start: 06/23/19 15: 24 Freq: DAILY@0600,1400,2200 Status: Inactive Protocol: Document 06/23/19 12:00 VKM2611 (Rec: 06/23/19 15:26 MDW0052 ICU-C25) Created 06/23/19 15:24 PYZ4293 (Rec: 06/23/19 15:24 IBY4945 ICU-C25) Document 06/23/19 21:29 WTD3417 (Rec: 06/23/19 21:30 TMX3154 TELE-C07) Document 06/24/19 06:00 ROO8059 (Rec: 06/24/19 06:06 ADX8557 TELE-C09) Document 06/24/19 22:00 MTV9163 (Rec: 06/24/19 22:36 RMN3415 TELE-C07) Document 06/25/19 05:51 RRA1962 (Rec: 06/25/19 05:52 HYF0122 TELE-C07) Document 06/25/19 12:11 LAM1888 (Rec: 06/25/19 12:12 HOZ5931 TELE-M11) Intake and Output Start: 06/25/19 22: 26 Freq: 06,14,2200 Status: Active Protocol: Created 06/25/19 22:26 THJ3278 (Rec: 06/25/19 22:26 NIB7671 ICU-C25) Document 06/25/19 23:00 PUJ8724 (Rec: 06/25/19 23:05 SKB4146 ICU-C25) Document 06/25/19 23:28 NTT5753 (Rec: 06/25/19 23:30 AIY4007 ICU-C16) Document 06/25/19 23:47 CRA7971 (Rec: 06/25/19 23:47 MHZ9721 ICU-C25) Document 06/26/19 01:00 TLF8918 (Rec: 06/26/19 02:24 DNL5401 ICU-C25) Document 06/26/19 02:00 MPV0667 (Rec: 06/26/19 02:24 WFL8228 ICU-C25) Document 06/26/19 03:00 REM2321 (Rec: 06/26/19 03:21 YEI0131 ICU-C25) Document 06/26/19 04:00 AXL2532 (Rec: 06/26/19 04:13 GHX0839 ICU-C25) Document 06/26/19 05:00 APL9794 (Rec: 06/26/19 05:01 TKH4098 ICU-C25) Document 06/26/19 06:00 DTY8156 (Rec: 06/26/19 06:05 KVU3584 ICU-C25) Document 06/26/19 07:00 GZL6699 (Rec: 06/26/19 07:58 JXE4948 ICU-C15) Document 06/26/19 07:58 BFC8542 (Rec: 06/26/19 07:58 EST5136 ICU-C15) Document 06/26/19 09:00 SFQ3728 (Rec: 06/26/19 09:41 DRT8330 ICU-C15) Document 06/26/19 10:00 QBC8202 (Rec: 06/26/19 11:07 XEG0302 ICU-C15) Document 06/26/19 11:00 SCW5361 (Rec: 06/26/19 11:07 CIV2765 ICU-C15) Document 06/26/19 12:00 NZP2589 (Rec: 06/26/19 12:14 NWU2516 ICU-C15) Document 06/26/19 13:00 PCE0703 (Rec: 06/26/19 13:22 YOS4966 ICU-C15) Document 06/26/19 14:00 KHN7065 (Rec: 06/26/19 17:56 HTA2473 ICU-L03) Document 06/26/19 15:00 OBQ0626 (Rec: 06/26/19 17:57 BHO5286 ICU-L03) Document 06/26/19 16:00 UHI7030 (Rec: 06/26/19 17:57 FEM3071 ICU-L03) Document 06/26/19 17:00 EZI7988 (Rec: 06/26/19 17:57 AOT1633 ICU-L03) Document 06/26/19 17:57 JSU7968 (Rec: 06/26/19 17:57 CWW0717 ICU-L03) Document 06/26/19 19:00 QKO1926 (Rec: 06/26/19 19:08 GEP7754 [facility] ) Document 06/26/19 20:00 JIS9109 (Rec: 06/26/19 20:05 HOV9806 ICU-C15) Document 06/26/19 21:00 LGV4300 (Rec: 06/26/19 22:09 QEQ6294 ISDEMO-M03 ) Document 06/26/19 22:00 HRS6216 (Rec: 06/26/19 22:09 TFE7946 ISDEMO-M03 ) Document 06/26/19 23:00 LEW9192 (Rec: 06/26/19 23:20 ENW8048 ICU-C15) Document 06/26/19 23:59 NOB1740 (Rec: 06/26/19 23:59 IWZ0232 ICU-C15) Document 06/27/19 01:00 EVV6217 (Rec: 06/27/19 01:08 HVA7555 ICU-C15) Document 06/27/19 02:00 LTE1735 (Rec: 06/27/19 02:03 IVH1913 ICU-C15) Document 06/27/19 03:00 LXM2890 (Rec: 06/27/19 05:10 LSB4965 ICU-C15) Document 06/27/19 04:00 UNJ4398 (Rec: 06/27/19 05:10 OUC3464 ICU-C15) Document 06/27/19 06:00 HBT7233 (Rec: 06/27/19 06:02 ZDM6246 ICU-C15) Document 06/27/19 08:00 KGF6419 (Rec: 06/27/19 08:07 ELW6454 ICU-C15) Document 06/27/19 09:31 ZGW6831 (Rec: 06/27/19 09:31 AJP1705 ICU-C15) Document 06/27/19 11:00 VJY8124 (Rec: 06/27/19 11:10 BQS6368 ICU-C15) Document 06/27/19 13:45 NUF2097 (Rec: 06/27/19 13:56 JEZ5278 ICU-C15) Document 07/02/19 07:36 MRZ5352 (Rec: 07/02/19 07:36 HYX8435 TELE-M20) Document 07/02/19 14:00 HBR2664 (Rec: 07/02/19 14:47 WND9890 TELE-C05) Document 07/02/19 15:34 XPW1718 (Rec: 07/02/19 15:34 LSX3761 TELE-M20) Document 07/02/19 21:53 PKK7518 (Rec: 07/02/19 21:53 FAI4305 TELE-M21) Document 07/03/19 06:00 FBX3390 (Rec: 07/03/19 07:27 JHN9868 TELE-C10) Document 07/03/19 14:00 WSI0366 (Rec: 07/03/19 14:58 YEB4604 TELE-C01) Document 07/03/19 21:47 RWH0007 (Rec: 07/03/19 21:47 WUE3346 TELE-C08) Document 07/04/19 03:30 XJO8274 (Rec: 07/04/19 07:00 MWU3139 MED-M16) Document 07/04/19 06:00 KXK1813 (Rec: 07/04/19 06:04 YUZ2492 TELE-C08) Document 07/04/19 13:35 XNH1046 (Rec: 07/04/19 13:36 UIL3810 TELE-M07) Document 07/04/19 21:32 QHM8664 (Rec: 07/04/19 21:37 SLX5277 TELE-M07) Document 07/05/19 06:00 GED9733 (Rec: 07/05/19 07:03 NIF7916 TELE-C10) Document 07/05/19 14:00 YNH8878 (Rec: 07/05/19 14:30 WEM4347 TELE-C11) Document 07/05/19 22:00 QJA4827 (Rec: 07/05/19 23:26 WAP6883 TELE-C33) Document 07/06/19 05:48 PPT6209 (Rec: 07/06/19 05:49 LQB9824 TELE-M13) Document 07/06/19 14:00 GHX6931 (Rec: 07/06/19 14:43 OPR0557 TELE-C03) Document 07/06/19 22:00 GXO3332 (Rec: 07/06/19 22:05 DGZ8027 TELE-C09) Document 07/07/19 03:57 JYV5002 (Rec: 07/07/19 03:57 KGR2886 TELE-C13) Document 07/07/19 05:37 DEV6003 (Rec: 07/07/19 05:37 IXK1296 TELE-C13) Document 07/07/19 22:00 IXQ1885 (Rec: 07/07/19 22:42 TEJ6168 TELE-C11) Document 07/08/19 06:00 UHL9711 (Rec: 07/08/19 07:55 PLR1664 TELE-C11) Document 07/08/19 13:51 OEW5466 (Rec: 07/08/19 13:51 GBQ3200 TELE-C10) Document 07/08/19 22:00 CYJ8098 (Rec: 07/08/19 22:40 SMK6623 TELE-C10) Document 07/09/19 06:00 MKX5912 (Rec: 07/09/19 06:09 OPN7655 TELE-C10) Document 07/09/19 13:14 LWT7310 (Rec: 07/09/19 13:15 OCP2924 TELE-C11) Document 07/09/19 18:00 IYV7922 (Rec: 07/09/19 18:23 NGM4917 TELE-C05) Document 07/09/19 22:00 UPG6770 (Rec: 07/10/19 06:25 KKR0471 MED-C11) Document 07/10/19 06:00 DLD9957 (Rec: 07/10/19 06:27 FNG4518 MED-C11) - Physical Exam General Physical Exam Comment: Warm and well perfused. General: No Cyanosis, Yes Anemia, No Jaundice, No Clubbing Skin: Normal: Rash Lungs and Chest: Yes: Chest Expansion Full, Chest Expansion Symetrica, Percussion Note Resonant, Vessicular Breath Sounds. No: Crackles, Wheezes, Respiratory Distress, Use of Accessory Muscles Heart Rate and Rhythm: Irregular Additional Cardiovascular: Yes: Normal Heart Sounds, Heart Murmur. No: Pedal Edema Abdominal Exam: Yes: Soft, Bowel Sounds Present. No: Distention, Abdominal Tenderness Results - Results Lab Results: Laboratory Results - last 24 hr 07/09/19 07/09/19 07/09/19 12:02 15:20 19:01 Sodium 149 H Potassium 3.3 L Chloride 110 Carbon Dioxide 28 Anion Gap 11 BUN 48 H Creatinine 0.97 H Est GFR ( Amer) 67.0 Est GFR (Non-Af Amer) 55.4 BUN/Creatinine Ratio 49.5 H Glucose 119 H POC Glucose (mg/dL) 295 H 198 H Calcium 9.2 Phosphorus 2.1 L Magnesium 1.9 Total Bilirubin 4.10 H AST 34 ALT 46 Alkaline Phosphatase 123 H Total Protein 6.6 Albumin 3.6 Globulin 3.0 Albumin/Globulin Ratio 1.2 Prealbumin 23 Triglycerides 149 Cholesterol 165 07/10/19 07/10/19 07/10/19 00:23 05:20 05:43 Sodium 147 H Potassium 3.9 Chloride 112 H Carbon Dioxide 28 Anion Gap 7 BUN 54 H Creatinine 0.97 H Est GFR ( Amer) 67.0 Est GFR (Non-Af Amer) 55.4 BUN/Creatinine Ratio 55.7 H Glucose 200 H POC Glucose (mg/dL) 220 H 222 H Calcium 8.9 Phosphorus Magnesium Total Bilirubin AST ALT Alkaline Phosphatase Total Protein Albumin Globulin Albumin/Globulin Ratio Prealbumin Triglycerides Cholesterol Assessment - Problem List Assessment: Patient Problems ARDS (adult respiratory distress syndrome) (Acute) Acute renal failure (Acute) Altered mental state (Acute) Anemia (Acute) CHF, acute (Acute) Coronary artery disease (Acute) Hypernatremia (Acute) Hypokalemia (Acute) Leukocytosis (Acute) Lower respiratory tract infection (Acute) On total parenteral nutrition (Acute) Pulmonary edema (Acute) Steroid-induced diabetes (Acute) Alcohol dependence (Chronic) Anticoagulated (Chronic) Atrial fibrillation (Chronic) Bronchiectasis (Chronic) COPD (chronic obstructive pulmonary disease) (Chronic) DVT prophylaxis (Chronic) 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 Acute renal failure (Acute) Hypernatremia (Acute) Hypokalemia (Acute) Her BUN is disproportionately elevated - likely owing to the TPN. Her hypokalemia is resolved, her hypernatremia continues Altered mental state (Acute) This is likely multifactorial * Medication related (steroids, anti-convulsants) * Hospitalization - prolonged * history of multiple cerebral infarctions * She has a history of seizure disorder - this could be status complex partial seizures. I want to give her another 24 hours prior to checking an EEG. I will cut back further the steroids. Anemia (Acute) stable Leukocytosis (Acute) increased by TPN/steroids. On total parenteral nutrition (Acute) Continue for now. I note her I and O is healthy with the furosemide. 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 I explained that the mental state is the major issue now and I talked about next steps.
[2019-07-10] MEDS ORDERED: methylPREDNISolone SOD 40 MG* 1 ML VIAL IV SCH (09:00)
[2019-07-10] MEDS: Enoxaparin(*) 30 MG/0.3 ML SYR SUBCUT SCH (09:22)
[2019-07-10] MEDS: Famotidine IV* 10 MG/ML 2 ML (20 mg) IV SLOW PU SCH (09:23)
[2019-07-10] MEDS: methylPREDNISolone SOD 40 MG* 1 ML VIAL IV SCH (09:25)
[2019-07-10] MEDS: lamoTRIgine TAB(*) 100 MG PO SCH ×2 (09:42→23:54)
[2019-07-10] MEDS: Spironolactone TAB* 25 MG PO SCH (09:43)
[2019-07-10] MEDS: Ramipril CAP* 5 MG PO SCH (09:43)
[2019-07-10] MEDS: levETIRAcetam IV* 250 MG in NS 0.9% 100 ML* 100 ML IVPB SCH ×2 (11:16→23:18)
[2019-07-10] MEDS: Insulin GLARGINE(*) 1 UNITS UNIT SUBCUT SCH (11:16)
[2019-07-10] MEDS: Atorvastatin* 40 MG TAB PO SCH (17:16)
[2019-07-10] MEDS: DIGOXIN PO SCH (17:23)
[2019-07-10] MEDS: ORALSYR PO SCH (17:23)
[2019-07-10] MEDS: TPN* 24 HR with Dextrose 50% Water* 500 ML, Amino Acid Infusion 10%* 850 ML, Sterile Wa... CENTR SCH ×12 (17:24)
[2019-07-10] MEDS: Haloperidol INJ IV/IM* 5 MG/ML AMP IV SLOW PU PRN (23:12)
[2019-07-11] MEDS: Morphine INJ* 2 MG/ML 1 ML SYRINGE (TWO MG - NEW SYRINGE VERSION) IV PRN ×3 (00:01→22:03)
[2019-07-11] MEDS: ZOSYN 3.375 GM Q8H per EXTENDED INFUSION IVPB SCH ×8 (00:02→23:15)
[2019-07-11] MEDS ORDERED: Haloperidol INJ IV/IM* 5 MG/ML AMP IV SLOW PU ONE (00:50)
[2019-07-11] MEDS: Insulin LISPRO* 1 UNITS UNIT SUBCUT SCH ×5 (01:19→23:36)
[2019-07-11] MEDS ORDERED: Lorazepam PYXIS KEY PRN (02:29)
[2019-07-11] MEDS ORDERED: LORazepam INJ* 2 MG/ML 1 ML VIAL IV PUSH ONE ×2 (02:30→12:00)
[2019-07-11] MEDS: Metoprolol Tartrate IV* 1 MG/ML 5 ML VIAL IV SCH ×5 (04:36→22:40)
[2019-07-11 06:29] LABS: BUN/Creatinine Ratio 53.8 (8-20); Blood Urea Nitrogen 78 mg/dL (6-24); C Reactive Protein 9.27 mg/L (<8.01); CO2 Carbon Dioxide 18 mmol/L (22-32); Calcium 9.1 mg/dL (8.6-10.3); EGFR African American 42.1 (>60); EGFR Non-African American 34.8 (>60); Glucose 187 mg/dL (70-100); Sodium 143 mmol/L (135-145)
[2019-07-11] MEDS: Furosemide IV* 10 MG/ML 2 ML VIAL (20 MG) IV SCH ×3 (06:46→11:13)
[2019-07-11 06:52] LABS: Anion Gap 9 mmol/L (2-11); Chloride 116 mmol/L (101-111)
--- NOTE | 2019-07-11 08:18 | PN ---
Subjective - Subjective Reason for Note: Progress Note History: She remains encephalopathic and when more alert managed to climb out of the bed and fall yesterday. She did not injure herself. TPN is stable. Her respiratory function remains improved. Active Problems: Active Problems Altered mental state (Acute) R41.82 Pt is even more confused and agitated today compared to yesterday at my visit. Cause of her confusion is not clear. There is no evidence of infection. CT brain negative for any acute findings. ? hospital acquired delirium in the setting of a person who at baseline is mild to moderately confused (per [facility] staff) vs related to EtOH withdrawl (seems unlikely as pt has no other signs of withdrawl) vs non convulsive status (also unlikely given how verbal and active she has been). I trialed seroquel 25mg last night and reportedly she had an ok night. Given the screaming and marked agitation at this time will give haldol 2mg IV x1 now to see if she will settle and be more appropriate with her care. Lower respiratory tract infection (Acute) J22 On total parenteral nutrition (Acute) Z78.9 Steroid-induced diabetes (Acute) Alcohol dependence (Chronic) F10.20 As pt is unable to tell me anything useful, it is unclear if she is still drinking. She does not appear to be withdrawling from EtOH. Anemia (Chronic) D64.9 Anticoagulated (Chronic) Z79.01 Atrial fibrillation (Chronic) I48.91 Pt is in afib but controlled rate. Continue coreg and digoxin and coumadin. Recheck INR tomorrow. Pt refused labs this AM. Bronchiectasis (Chronic) J47.9 COPD (chronic obstructive pulmonary disease) (Chronic) J44.9 No signs of exacerbation. Stop solumedrol. Monitor respiratory status. 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 Continue keppra and lamotrigine. Keppra level sent last night just prior to her receiving her evening dose. Current Medications: Current Medications Acetaminophen (Tylenol Tab*) 650 mg PO Q4H PRN PRN Reason: FEVER/PAIN Atorvastatin Calcium (Lipitor*) 40 mg PO 1700 [facility] Last Admin: 07/10/19 17:16 Dose: Not Given Dextrose (D50w Syringe 50 Ml*) 12.5 gm IV PUSH .FOR FS < 60 - SS PRN PRN Reason: FS < 60 Digoxin (Lanoxin Liq* Oralsyr) 0.125 mg PO 1700 [facility] Last Admin: 07/10/19 17:23 Dose: Not Given Enoxaparin Sodium (Lovenox(*)) 30 mg SUBCUT Q24H [facility] Last Admin: 07/10/19 09:22 Dose: 30 mg Famotidine (Pepcid Iv*) 20 mg IV SLOW PU BID [facility] Last Admin: 07/11/19 00:00 Dose: 20 mg Furosemide (Lasix Iv*) 20 mg IV Q8HR [facility] Last Admin: 07/11/19 06:46 Dose: 20 mg Haloperidol Lactate (Haldol Inj Iv/Im*) 2.5 mg IV SLOW PU Q8H PRN PRN Reason: AGITATION Last Admin: 07/10/19 23:12 Dose: 2.5 mg Heparin Sodium (Porcine) (Heparin Flush Picc/Ml/Cvc(*)) 0 ml FLUSH 0600,1800 [facility] Last Admin: 07/11/19 06:46 Dose: Not Given Hydralazine HCl (Apresoline Iv*) 5 mg IV SLOW PU Q4H PRN PRN Reason: SBP > 160 Last Admin: 06/28/19 19:46 Dose: 5 mg Piperacillin Sod/Tazobactam (Sod 3.375 gm/ Sodium Chloride) 100 mls @ 25 mls/ hr IVPB Q8H [facility] Last Admin: 07/11/19 06:46 Dose: 25 mls/hr Levetiracetam 250 mg/ Sodium (Chloride) 102.5 mls @ 410 mls/hr IVPB Q12H [facility] Last Admin: 07/10/19 23:18 Dose: 410 mls/hr Dextrose 500 ml/ Amino Acids 850 ml/ Sterile Water 150 ml/Fat Emulsion Intravenous 250 ml/ Sodium Chloride 25 meq/Potassium Chloride 80 meq/Potassium Phosphate 15 mmole/Calcium Gluconate 15 meq/Magnesium Sulfate 10 meq/ Multivitamins 10 ml/ Trace Metals 1 ml/ Nutrition ( Parenteral) 1,846.971 mls @ 76.957 mls/hr CENTR 1700 [facility] Last Admin: 07/10/19 17:24 Dose: 76.957 mls/hr Insulin Glargine (Lantus(*)) 18 units SUBCUT Q24H [facility] Last Admin: 07/10/19 11:16 Dose: 18 units Insulin Human Lispro (Humalog*) 0 - 6 units SUBCUT Q6HR [facility]; Protocol Last Admin: 07/11/19 06:46 Dose: 1 units Lamotrigine (Lamictal Tab(*)) 50 mg PO BID [facility] Last Admin: 07/10/19 23:54 Dose: 50 mg Levalbuterol HCl (Xopenex 0.63mg/3ml Neb*) 0.31 mg INH Q6H PRN PRN Reason: SOB/WHEEZING Last Admin: 06/25/19 21:39 Dose: 0.63 mg Methylprednisolone Sodium Succinate (Solu-Medrol 40 Mg) 5 mg IV BID@0900,2100 [facility] Metoprolol Tartrate (Lopressor Iv*) 2.5 mg IV Q6H [facility] Last Admin: 07/11/19 04:36 Dose: 2.5 mg Miscellaneous (Ativan Pyxis [place]) 1 ea N/A .PYXIS PRADO PRN PRN Reason: PER PROTOCOL Morphine Sulfate (Morphine Inj (Syringe))*) 1 mg IV Q2H PRN PRN Reason: .PAIN Last Admin: 07/11/19 00:01 Dose: 1 mg Pharmacy Consult (Zosyn Per Pharmacy*) 1 note FOLLOW UP .ZOSYN PER PHARMACY [facility] Ramipril (Altace Cap*) 5 mg PO DAILY [facility] Last Admin: 07/10/19 09:43 Dose: Not Given Spironolactone (Aldactone Tab*) 12.5 mg PO DAILY [facility] Last Admin: 07/10/19 09:43 Dose: Not Given Home Medications: Home Medications Medication Instructions Recorded Confirmed Type Digoxin TAB* [Lanoxin TAB*] 0.125 mg PO DAILY 11/14/17 06/23/19 History levETIRAcetam TAB* [Keppra TAB*] 750 mg PO BID tab 11/16/17 06/23/19 Rx Atorvastatin* [Lipitor 20 MG*] 20 mg PO BEDTIME 12/01/18 06/23/19 History lamoTRIgine TAB(*) [Lamictal 100 mg PO BID 12/01/18 06/23/19 History TAB(*)] Carvedilol TAB* [Coreg TAB*] 3.125 mg PO BID #60 tab 06/19/19 06/23/19 Rx Furosemide TAB* [Lasix TAB*] 20 mg PO 0800 5 Days #30 tab 06/19/19 06/23/19 Rx Levalbuterol 0.63MG/3ML NEB* 0.31 mg INH Q6H PRN #30 neb.soln 06/19/19 06/23/19 Rx [Xopenex 0.63MG/3ML NEB*] Spironolactone TAB* [Aldactone TAB 12.5 mg PO DAILY #30 tab 06/19/19 06/23/19 Rx 25 MG*] predniSONE TAB* [Deltasone 20 MG 5 mg PO DAILY #10 tab 06/19/19 06/23/19 Rx TAB*] Cephalexin 500 mg PO QID 06/23/19 06/23/19 History Warfarin TAB(*) [Coumadin TAB(*)] 0.5 mg PO DAILY@1700 06/23/19 06/23/19 History Allergies: Allergies Allergy/AdvReac Type Severity Reaction Status Date / Time No Known Allergies Allergy Verified 06/23/19 04:24 Objective - Vital Signs Vital Signs: Vital Signs 07/10/19 07/10/19 07/10/19 09:30 09:41 09:51 Temperature Pulse Rate 107 Respiratory 18 18 18 Rate Blood Pressure 134/73 (mmHg) O2 Sat by Pulse Oximetry 07/10/19 07/10/19 07/10/19 11:28 11:49 12:04 Temperature 97.6 F 98.9 F Pulse Rate 96 Respiratory 22 18 Rate Blood Pressure 136/93 (mmHg) O2 Sat by Pulse 95 Oximetry 07/10/19 07/10/19 07/10/19 14:12 14:54 15:24 Temperature 98.3 F 98.9 F Pulse Rate 105 103 Respiratory 31 20 18 Rate Blood Pressure 130/70 103/98 (mmHg) O2 Sat by Pulse 96 Oximetry 07/10/19 07/10/19 07/10/19 16:14 16:53 17:12 Temperature 97.5 F Pulse Rate 104 104 Respiratory 24 20 Rate Blood Pressure 121/77 119/82 (mmHg) O2 Sat by Pulse 99 95 Oximetry 07/10/19 07/10/19 07/10/19 20:00 21:00 21:37 Temperature 98.1 F Pulse Rate 97 Respiratory 26 21 26 Rate Blood Pressure 148/86 (mmHg) O2 Sat by Pulse 100 Oximetry 07/10/19 07/11/19 07/11/19 22:35 00:01 01:00 Temperature Pulse Rate Respiratory 26 20 24 Rate Blood Pressure (mmHg) O2 Sat by Pulse Oximetry 07/11/19 07/11/19 07/11/19 02:45 03:45 05:00 Temperature 97 F Pulse Rate 79 Respiratory 20 16 16 Rate Blood Pressure 113/57 (mmHg) O2 Sat by Pulse 99 Oximetry - Intake and Output Intake and Output: Intake & Output 07/08/19 07/09/19 07/10/19 07/11/19 11:59 11:59 11:59 11:59 Intake Total 329 189 6078 2554 Output Total 1999 4800 2900 900 Balance -5371 -5261 6052 1654 Weight 104 lb 4.8 oz 108 lb 6.4 oz 101 lb 8 oz 97 lb Intake: IV Fluids 145 102 400 65 ABX - ZOSYN 37 200 65 D5W 1/4 NS 40mEq K 100 Keppra 15 100 NS (0.9%) 45 50 100 IVPB 400 416 403 266 ABX - ZOSYN 300 211 303 266 Keppra 100 205 100 TPN/PPN 3556 2223 Oral 0 0 0 0 Joya Irrigate Amount 1300 Output: Joya 1999 4800 2900 900 Other: Estimated Void Large Large # Bowel Movements 1 0 0 Estimated Stool Amount Small # Voids 1 1 ADLs: Meal Record Start: 06/23/19 11: 08 Freq: ,,18 Status: Complete Protocol: Created 06/23/19 11:08 System (Rec: 06/23/19 11:08 System RU-C05) ADLs: Meal Record Start: 06/23/19 15: 24 Freq: DAILY@0900,1400,1800 Status: Active Protocol: Created 06/23/19 15:24 [id number] (Rec: 06/23/19 15:24 KFJ9670 ICU-C25) Document 06/23/19 18:00 APA4493 (Rec: 06/23/19 20:33 DAY7495 TELE-C07) Document 06/24/19 09:00 EOG9798 (Rec: 06/24/19 10:22 UEX3341 TELE-C03) Document 06/24/19 18:00 GJQ9841 (Rec: 06/24/19 18:15 HLA9701 TELE-C07) Document 06/25/19 08:58 CBG0036 (Rec: 06/25/19 08:59 IXO8134 TELE-M11) Document 06/25/19 13:57 DXI9390 (Rec: 06/25/19 13:59 KAX5771 TELE-M11) Document 06/25/19 18:00 BCN1761 (Rec: 06/25/19 22:40 HWU2210 TELE-C05) Document 06/26/19 10:00 DXD3515 (Rec: 06/26/19 11:06 UYO1439 ICU-C15) Document 06/26/19 18:00 KQJ4981 (Rec: 06/26/19 18:05 NKP5175 ICU-L03) Document 06/28/19 11:23 FTO0954 (Rec: 06/28/19 11:23 BWB7807 TELE-M21) Document 06/28/19 13:25 VBZ3811 (Rec: 06/28/19 13:25 GIR0530 TELE-M21) Document 06/28/19 21:48 DNG4257 (Rec: 06/28/19 21:48 ZQQ8387 TELE-C11) Document 06/29/19 04:22 UIQ9863 (Rec: 06/29/19 04:23 DLG6468 TELE-M21) Document 06/29/19 05:29 WRE9021 (Rec: 06/29/19 05:29 EZW0591 TELE-M21) Document 06/30/19 18:13 TRL7761 (Rec: 06/30/19 18:13 NDW5134 TELE-M21) Document 07/01/19 09:50 OFM0461 (Rec: 07/01/19 09:50 INC7421 TELE-M21) Document 07/01/19 13:21 DQO2939 (Rec: 07/01/19 13:21 SUO3575 TELE-M21) Document 07/01/19 19:39 VPV0957 (Rec: 07/01/19 19:39 MMS7739 TELE-M21) Document 07/02/19 14:00 QNL2113 (Rec: 07/02/19 14:47 TRU3084 TELE-C05) Document 07/02/19 18:00 HOC1821 (Rec: 07/02/19 18:28 IKI9115 TELE-M21) Document 07/03/19 09:00 VWJ2791 (Rec: 07/03/19 10:47 OOU0635 TELE-C01) Document 07/03/19 12:58 HQE9485 (Rec: 07/03/19 12:58 GLK1534 TELE-C01) Document 07/03/19 18:00 QEW3102 (Rec: 07/03/19 20:00 SPU4303 TELE-C08) Document 07/04/19 09:00 CYD4872 (Rec: 07/04/19 09:37 BZH8318 TELE-M07) Document 07/04/19 12:44 VCX4646 (Rec: 07/04/19 12:44 LPU1349 TELE-M07) Document 07/04/19 18:00 EDU1180 (Rec: 07/04/19 18:07 QKE1536 TELE-M07) Document 07/05/19 09:00 GBB3825 (Rec: 07/05/19 14:02 DOS5807 TELE-C11) Document 07/05/19 14:00 CDH4863 (Rec: 07/05/19 14:04 SOV5778 TELE-C11) Document 07/05/19 18:00 VNK0868 (Rec: 07/05/19 18:21 QIZ2880 TELE-M15) Document 07/06/19 09:00 UCH4141 (Rec: 07/06/19 12:05 LQH6247 TELE-C08) Document 07/06/19 14:00 MMB8269 (Rec: 07/06/19 14:43 KXA5906 TELE-C03) Document 07/06/19 18:00 SRS2643 (Rec: 07/06/19 22:02 MEX6236 TELE-C09) Document 07/07/19 18:00 NRP0258 (Rec: 07/07/19 20:04 XYN2670 TELE-C11) Document 07/08/19 09:00 UUF9469 (Rec: 07/08/19 09:54 MFE1733 TELE-C10) Document 07/08/19 13:50 PQK5553 (Rec: 07/08/19 13:51 RBP1861 TELE-C10) Document 07/08/19 18:00 MUQ2366 (Rec: 07/08/19 20:09 QAS9539 TELE-C10) Document 07/09/19 08:42 SDS8736 (Rec: 07/09/19 08:43 CFL4298 TELE-C11) Document 07/09/19 13:14 DCN8491 (Rec: 07/09/19 13:14 YFZ7638 TELE-C11) Document 07/09/19 18:00 ZHW9943 (Rec: 07/09/19 21:14 RZM3548 MED-C09) Document 07/10/19 08:58 FAK7576 (Rec: 07/10/19 08:58 KOJ9757 MED-C09) Document 07/10/19 13:34 BGS1976 (Rec: 07/10/19 13:34 HZT2625 MED-C09) Document 07/10/19 17:46 CSR1641 (Rec: 07/10/19 17:47 RAD4923 MED-C13) ADLs: Meal Record Start: 06/25/19 22: 26 Freq: Status: Complete Protocol: Created 06/25/19 22:26 DTS5271 (Rec: 06/25/19 22:26 FDN3381 ICU-C25) ADLs: Meal Record Start: 06/28/19 12: 17 Freq: Status: Cancelled Protocol: Created 06/28/19 12:17 ZAQ1824 (Rec: 06/28/19 12:17 CCN5911 TELE-M21) Intake and Output Start: 06/23/19 04: 23 Freq: Status: Inactive Protocol: Created 06/23/19 04:23 System (Rec: 06/23/19 04:23 System EDRM-C10) Intake and Output Start: 06/23/19 11: 08 Freq: Q1HR Status: Inactive Protocol: Created 06/23/19 11:08 System (Rec: 06/23/19 11:08 System PMRU-C05) Document 06/23/19 14:59 MTI7268 (Rec: 06/23/19 15:00 JVD6440 ICU-C25) Intake and Output Start: 06/23/19 15: 24 Freq: DAILY@0600,1400,2200 Status: Inactive Protocol: Document 06/23/19 12:00 AOH0201 (Rec: 06/23/19 15:26 AMX0944 ICU-C25) Created 06/23/19 15:24 XGD0394 (Rec: 06/23/19 15:24 JMN5080 ICU-C25) Document 06/23/19 21:29 FDU7980 (Rec: 06/23/19 21:30 ARP6484 TELE-C07) Document 06/24/19 06:00 MOU9489 (Rec: 06/24/19 06:06 OPQ4795 TELE-C09) Document 06/24/19 22:00 RGA6888 (Rec: 06/24/19 22:36 XQC6366 TELE-C07) Document 06/25/19 05:51 YEB7279 (Rec: 06/25/19 05:52 PYK3182 TELE-C07) Document 06/25/19 12:11 JSA5642 (Rec: 06/25/19 12:12 TTF6028 TELE-M11) Intake and Output Start: 06/25/19 22: 26 Freq: 06,14,2200 Status: Active Protocol: Created 06/25/19 22:26 IIG5482 (Rec: 06/25/19 22:26 SZX0630 ICU-C25) Document 06/25/19 23:00 VUS5907 (Rec: 06/25/19 23:05 PXR4105 ICU-C25) Document 06/25/19 23:28 MXB4624 (Rec: 06/25/19 23:30 BJX3236 ICU-C16) Document 06/25/19 23:47 CLN8527 (Rec: 06/25/19 23:47 MBQ0666 ICU-C25) Document 06/26/19 01:00 EKQ9202 (Rec: 06/26/19 02:24 OUL5319 ICU-C25) Document 06/26/19 02:00 YHL9486 (Rec: 06/26/19 02:24 AAG9472 ICU-C25) Document 06/26/19 03:00 DWL7826 (Rec: 06/26/19 03:21 IEG4366 ICU-C25) Document 06/26/19 04:00 CUO0751 (Rec: 06/26/19 04:13 UUS8172 ICU-C25) Document 06/26/19 05:00 EHG6896 (Rec: 06/26/19 05:01 QFF6447 ICU-C25) Document 06/26/19 06:00 OFS7653 (Rec: 06/26/19 06:05 HQQ9702 ICU-C25) Document 06/26/19 07:00 CFX5673 (Rec: 06/26/19 07:58 KCA3371 ICU-C15) Document 06/26/19 07:58 YSC7466 (Rec: 06/26/19 07:58 VDA0368 ICU-C15) Document 06/26/19 09:00 VLT5371 (Rec: 06/26/19 09:41 UIC0878 ICU-C15) Document 06/26/19 10:00 CCF3362 (Rec: 06/26/19 11:07 LXK1466 ICU-C15) Document 06/26/19 11:00 ZWV8001 (Rec: 06/26/19 11:07 DME3230 ICU-C15) Document 06/26/19 12:00 OAJ3786 (Rec: 06/26/19 12:14 LYA2165 ICU-C15) Document 06/26/19 13:00 RFQ0863 (Rec: 06/26/19 13:22 TWZ9801 ICU-C15) Document 06/26/19 14:00 LJQ0291 (Rec: 06/26/19 17:56 HVO4610 ICU-L03) Document 06/26/19 15:00 FJL6280 (Rec: 06/26/19 17:57 VKU1245 ICU-L03) Document 06/26/19 16:00 NTA4459 (Rec: 06/26/19 17:57 BUN5443 ICU-L03) Document 06/26/19 17:00 KQO0692 (Rec: 06/26/19 17:57 ENW6143 ICU-L03) Document 06/26/19 17:57 GFT8965 (Rec: 06/26/19 17:57 XWG1830 ICU-L03) Document 06/26/19 19:00 RGM0050 (Rec: 06/26/19 19:08 RAF9768 ISDEMO-M03 ) Document 06/26/19 20:00 JAC0271 (Rec: 06/26/19 20:05 ZNM9725 ICU-C15) Document 06/26/19 21:00 UXS4925 (Rec: 06/26/19 22:09 YHZ9588 ISDEMO-M03 ) Document 06/26/19 22:00 HTR1191 (Rec: 06/26/19 22:09 WGZ0163 ISDEMO-M03 ) Document 06/26/19 23:00 ZTW6066 (Rec: 06/26/19 23:20 POR5735 ICU-C15) Document 06/26/19 23:59 YRP2366 (Rec: 06/26/19 23:59 BXZ8314 ICU-C15) Document 06/27/19 01:00 JCP3198 (Rec: 06/27/19 01:08 YDA0048 ICU-C15) Document 06/27/19 02:00 EDO1334 (Rec: 06/27/19 02:03 AQN7360 ICU-C15) Document 06/27/19 03:00 NDG8899 (Rec: 06/27/19 05:10 RPW4655 ICU-C15) Document 06/27/19 04:00 FOR0222 (Rec: 06/27/19 05:10 TRF7659 ICU-C15) Document 06/27/19 06:00 QMQ0055 (Rec: 06/27/19 06:02 AKM1814 ICU-C15) Document 06/27/19 08:00 VET5527 (Rec: 06/27/19 08:07 QLZ5930 ICU-C15) Document 06/27/19 09:31 FHX4089 (Rec: 06/27/19 09:31 QNZ7155 ICU-C15) Document 06/27/19 11:00 JAQ1799 (Rec: 06/27/19 11:10 UVF8653 ICU-C15) Document 06/27/19 13:45 IPI0515 (Rec: 06/27/19 13:56 JWO7714 ICU-C15) Document 07/02/19 07:36 VPT3562 (Rec: 07/02/19 07:36 TMV8345 TELE-M20) Document 07/02/19 14:00 PFZ9105 (Rec: 07/02/19 14:47 RWC2717 TELE-C05) Document 07/02/19 15:34 EPW3416 (Rec: 07/02/19 15:34 UFB2076 TELE-M20) Document 07/02/19 21:53 PMV0452 (Rec: 07/02/19 21:53 FBU1709 TELE-M21) Document 07/03/19 06:00 SGD1308 (Rec: 07/03/19 07:27 FLL9874 TELE-C10) Document 07/03/19 14:00 HMN4203 (Rec: 07/03/19 14:58 BHH8400 TELE-C01) Document 07/03/19 21:47 FXP2643 (Rec: 07/03/19 21:47 BUN0678 TELE-C08) Document 07/04/19 03:30 PVN6495 (Rec: 07/04/19 07:00 KBE2098 MED-M16) Document 07/04/19 06:00 VTA3616 (Rec: 07/04/19 06:04 XSY0336 TELE-C08) Document 07/04/19 13:35 FQM6642 (Rec: 07/04/19 13:36 UIZ6000 TELE-M07) Document 07/04/19 21:32 QUG4013 (Rec: 07/04/19 21:37 MPY4136 TELE-M07) Document 07/05/19 06:00 HSH7385 (Rec: 07/05/19 07:03 USC5890 TELE-C10) Document 07/05/19 14:00 HEY6796 (Rec: 07/05/19 14:30 HUR9136 TELE-C11) Document 07/05/19 22:00 JKS8327 (Rec: 07/05/19 23:26 XWZ3005 TELE-C33) Document 07/06/19 05:48 UNP6596 (Rec: 07/06/19 05:49 AZK4602 TELE-M13) Document 07/06/19 14:00 WBR5630 (Rec: 07/06/19 14:43 UEC1767 TELE-C03) Document 07/06/19 22:00 AXM6357 (Rec: 07/06/19 22:05 AHG1107 TELE-C09) Document 07/07/19 03:57 SYZ1375 (Rec: 07/07/19 03:57 ZCJ2923 TELE-C13) Document 07/07/19 05:37 ZAK1231 (Rec: 07/07/19 05:37 NUJ5661 TELE-C13) Document 07/07/19 22:00 WLO9677 (Rec: 07/07/19 22:42 DUE3189 TELE-C11) Document 07/08/19 06:00 MSN1890 (Rec: 07/08/19 07:55 PDW7228 TELE-C11) Document 07/08/19 13:51 COK0058 (Rec: 07/08/19 13:51 CSV4440 TELE-C10) Document 07/08/19 22:00 NPW6302 (Rec: 07/08/19 22:40 DPA5603 TELE-C10) Document 07/09/19 06:00 QMT9335 (Rec: 07/09/19 06:09 KHY3217 TELE-C10) Document 07/09/19 13:14 EQK7227 (Rec: 07/09/19 13:15 OOU9354 TELE-C11) Document 07/09/19 18:00 XHZ5076 (Rec: 07/09/19 18:23 HWT7912 TELE-C05) Document 07/09/19 22:00 MHJ8904 (Rec: 07/10/19 06:25 XQT1654 MED-C11) Document 07/10/19 06:00 DGL0672 (Rec: 07/10/19 06:27 BWU0830 MED-C11) Document 07/10/19 13:34 CBP4788 (Rec: 07/10/19 13:34 AIH7031 MED-C09) Document 07/10/19 22:00 MTP3108 (Rec: 07/11/19 04:55 WHQ4227 MED-C11) Document 07/11/19 04:56 CJF5900 (Rec: 07/11/19 04:56 OTK4933 MED-C11) - Physical Exam General Physical Exam Comment: She is active and moving, but not conscious. Her eyes are open, but do not appear to be fixed on anything. She does follow single step commands, nor is she responding to attempts at conversation General: No Cyanosis, No Clubbing Lungs and Chest: Yes: Chest Expansion Full, Chest Expansion Symetrica, Percussion Note Resonant, Vessicular Breath Sounds. No: Crackles, Wheezes, Respiratory Distress Heart Rate and Rhythm: Irregular Additional Cardiovascular: Yes: Normal Heart Sounds, Heart Murmur. No: Pedal Edema Abdominal Exam: Yes: Soft, Bowel Sounds Present. No: Distention, Abdominal Tenderness Results - Results Lab Results: Laboratory Results - last 24 hr 07/10/19 07/10/19 07/11/19 12:33 18:00 00:46 Sodium Potassium Chloride Carbon Dioxide Anion Gap BUN Creatinine Est GFR ( Amer) Est GFR (Non-Af Amer) BUN/Creatinine Ratio Glucose POC Glucose (mg/dL) 117 H 77 176 H Calcium C-Reactive Protein 07/11/19 07/11/19 07/11/19 05:38 06:30 06:33 Sodium 143 Potassium TNP 4.4 Chloride 116 H Carbon Dioxide 18 L Anion Gap 9 BUN 78 H Creatinine 1.45 H Est GFR ( Amer) 42.1 Est GFR (Non-Af Amer) 34.8 BUN/Creatinine Ratio 53.8 H Glucose 187 H POC Glucose (mg/dL) 162 H Calcium 9.1 C-Reactive Protein 9.27 H Assessment - Problem List Assessment: Patient Problems Altered mental state (Acute) Lower respiratory tract infection (Acute) On total parenteral nutrition (Acute) Steroid-induced diabetes (Acute) Alcohol dependence (Chronic) Anemia (Chronic) Anticoagulated (Chronic) Atrial fibrillation (Chronic) Bronchiectasis (Chronic) COPD (chronic obstructive pulmonary disease) (Chronic) Coronary artery disease (Chronic) DVT prophylaxis (Chronic) 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 This is not improving. I will check an EEG today to establish if this is due to status complex partial seizures. Otherwise, we will continue supportive care. I will also check a CT brain in case of a hemorrhage. Lower respiratory tract infection (Acute) This is improved. Her ARDS seems much improved. The pulmonary edema has receded with the furosemide. Her BUN has increased, but her creatinine is fairly steady. On total parenteral nutrition (Acute) This continues and she appears to be tolerating it. 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 I explained the above - he has no further questions.
[2019-07-11] MEDS ORDERED: D5W 1/4 NS 1000 ML BAG* 1,000 ML IV SCH (10:00)
[2019-07-11] MEDS: lamoTRIgine TAB(*) 100 MG PO SCH ×2 (10:45→22:49)
[2019-07-11] MEDS: methylPREDNISolone SOD 40 MG* 1 ML VIAL IV SCH ×2 (10:45→22:40)
[2019-07-11] MEDS: Famotidine IV* 10 MG/ML 2 ML (20 mg) IV SLOW PU SCH ×3 (10:45→22:40)
[2019-07-11] MEDS: Enoxaparin(*) 30 MG/0.3 ML SYR SUBCUT SCH (10:45)
[2019-07-11] MEDS: Ramipril CAP* 5 MG PO SCH (10:46)
[2019-07-11] MEDS: Insulin GLARGINE(*) 1 UNITS UNIT SUBCUT SCH (10:46)
[2019-07-11] MEDS: Spironolactone TAB* 25 MG PO SCH (10:46)
[2019-07-11] MEDS: levETIRAcetam IV* 250 MG in NS 0.9% 100 ML* 100 ML IVPB SCH ×2 (11:05→22:34)
[2019-07-11 11:07] LABS: BUN/Creatinine Ratio 52.2 (8-20); Calcium 9.4 mg/dL (8.6-10.3); EGFR African American 38.5 (>60); EGFR Non-African American 31.8 (>60); Potassium 4.9 mmol/L (3.5-5.0)
[2019-07-11] MEDS: Haloperidol INJ IV/IM* 5 MG/ML AMP IV SLOW PU PRN ×2 (11:49→23:37)
--- NOTE | 2019-07-11 14:42 | EEG ---
ELECTROENCEPHALOGRAPHY: DATE OF STUDY: DATE OF DICTATION: 07/11/19 PATIENT OF: Dr. Biswas.* CLINICAL PROBLEM: This is a 79-year-old woman being evaluated for altered mental status with past history including seizure disorder, liver failure, atrial fibrillation, COPD. MEDICATIONS: Include: 1. Lovenox. 2. Pepcid. 3. Lasix. 4. Lamictal. 5. Solu-Medrol. 6. Altace. 7. Aldactone. 8. Lopressor. 9. Lantus. 10. Keppra. 11. Humalog. 12. Zosyn. 13. Lipitor. 14. Lanoxin 15. Haldol. 16. Xopenex. 17. Apresoline. 18. Ativan. 19. Morphine. REPORT: With the patient awake, background cerebral activity consists of admixed diffuse rhythm that reaches 6 to 7 Hz in frequency, occasional left temporal sharp waves are noted. With the patient apparently asleep, background consists of diffuse irregular delta and theta activity. No subclinical seizures are noted. CLINICAL IMPRESSION: This EEG is abnormal because of diffuse slowing of background consistent with an encephalopathy, but not specific as to etiology. There are some left temporal sharp waves that suggested predisposition to a focal seizure disorder. [id number]/[facility] #: [id number] [facility]
[2019-07-11] MEDS: Atorvastatin* 40 MG TAB PO SCH (17:34)
[2019-07-11] MEDS: DIGOXIN PO SCH (17:35)
[2019-07-11] MEDS: ORALSYR PO SCH (17:35)
[2019-07-11] MEDS: TPN* 24 HR with Dextrose 50% Water* 500 ML, Amino Acid Infusion 10%* 850 ML, Sterile Wa... CENTR SCH ×12 (18:09)
[2019-07-12] MEDS: Morphine INJ* 2 MG/ML 1 ML SYRINGE (TWO MG - NEW SYRINGE VERSION) IV PRN ×4 (02:31→20:25)
[2019-07-12] MEDS: Metoprolol Tartrate IV* 1 MG/ML 5 ML VIAL IV SCH ×4 (03:35→20:26)
[2019-07-12] MEDS: ZOSYN 3.375 GM Q8H per EXTENDED INFUSION IVPB SCH ×6 (05:11→22:47)
[2019-07-12] MEDS: Insulin LISPRO* 1 UNITS UNIT SUBCUT SCH ×3 (05:12→19:50)
--- NOTE | 2019-07-12 08:53 | PN ---
Subjective - Subjective Reason for Note: Progress Note History: She remains restless and encephalopathic. She had an EEG/CT yesterday - this ruled out seizure and intracranial hemorrhage. She is not responding to simple commands. Active Problems: Active Problems Altered mental state (Acute) R41.82 Pt is even more confused and agitated today compared to yesterday at my visit. Cause of her confusion is not clear. There is no evidence of infection. CT brain negative for any acute findings. ? hospital acquired delirium in the setting of a person who at baseline is mild to moderately confused (per [facility] staff) vs related to EtOH withdrawl (seems unlikely as pt has no other signs of withdrawl) vs non convulsive status (also unlikely given how verbal and active she has been). I trialed seroquel 25mg last night and reportedly she had an ok night. Given the screaming and marked agitation at this time will give haldol 2mg IV x1 now to see if she will settle and be more appropriate with her care. Lower respiratory tract infection (Acute) J22 On total parenteral nutrition (Acute) Z78.9 Steroid-induced diabetes (Acute) Alcohol dependence (Chronic) F10.20 As pt is unable to tell me anything useful, it is unclear if she is still drinking. She does not appear to be withdrawling from EtOH. Anemia (Chronic) D64.9 Anticoagulated (Chronic) Z79.01 Atrial fibrillation (Chronic) I48.91 Pt is in afib but controlled rate. Continue coreg and digoxin and coumadin. Recheck INR tomorrow. Pt refused labs this AM. Bronchiectasis (Chronic) J47.9 COPD (chronic obstructive pulmonary disease) (Chronic) J44.9 No signs of exacerbation. Stop solumedrol. Monitor respiratory status. 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 Continue keppra and lamotrigine. Keppra level sent last night just prior to her receiving her evening dose. Current Medications: Current Medications Acetaminophen (Tylenol Tab*) 650 mg PO Q4H PRN PRN Reason: FEVER/PAIN Atorvastatin Calcium (Lipitor*) 40 mg PO 1700 [facility] Last Admin: 07/11/19 17:34 Dose: Not Given Dextrose (D50w Syringe 50 Ml*) 12.5 gm IV PUSH .FOR FS < 60 - SS PRN PRN Reason: FS < 60 Digoxin (Lanoxin Liq* Oralsyr) 0.125 mg PO 1700 [facility] Last Admin: 07/11/19 17:35 Dose: Not Given Enoxaparin Sodium (Lovenox(*)) 30 mg SUBCUT Q24H [facility] Last Admin: 07/11/19 10:45 Dose: 30 mg Famotidine (Pepcid Iv*) 20 mg IV SLOW PU BID [facility] Last Admin: 07/11/19 22:40 Dose: 20 mg Furosemide (Lasix Iv*) 20 mg IV DAILY [facility] Last Admin: 07/11/19 11:13 Dose: Not Given Haloperidol Lactate (Haldol Inj Iv/Im*) 2.5 mg IV SLOW PU Q8H PRN PRN Reason: AGITATION Last Admin: 07/11/19 23:37 Dose: 2.5 mg Heparin Sodium (Porcine) (Heparin Flush Picc/Ml/Cvc(*)) 0 ml FLUSH 0600,1800 [facility] Last Admin: 07/12/19 05:21 Dose: Not Given Hydralazine HCl (Apresoline Iv*) 5 mg IV SLOW PU Q4H PRN PRN Reason: SBP > 160 Last Admin: 06/28/19 19:46 Dose: 5 mg Piperacillin Sod/Tazobactam (Sod 3.375 gm/ Sodium Chloride) 100 mls @ 25 mls/ hr IVPB Q8H [facility] Last Admin: 07/12/19 05:11 Dose: 25 mls/hr Levetiracetam 250 mg/ Sodium (Chloride) 102.5 mls @ 410 mls/hr IVPB Q12H [facility] Last Admin: 07/11/19 22:34 Dose: 410 mls/hr Dextrose 500 ml/ Amino Acids 850 ml/ Sterile Water 150 ml/Fat Emulsion Intravenous 250 ml/ Sodium Chloride 25 meq/Potassium Chloride 80 meq/Potassium Phosphate 15 mmole/Calcium Gluconate 15 meq/Magnesium Sulfate 10 meq/ Multivitamins 10 ml/ Trace Metals 1 ml/ Nutrition ( Parenteral) 1,846.971 mls @ 76.957 mls/hr CENTR 1700 [facility] Last Admin: 07/11/19 18:09 Dose: 76.957 mls/hr Dextrose/Sodium Chloride (D5w 1/4 Ns 1000 Ml Bag*) 1,000 mls @ 50 mls/hr IV .PER RATE [facility] Last Admin: 07/11/19 11:05 Dose: 50 mls/hr Insulin Glargine (Lantus(*)) 18 units SUBCUT Q24H [facility] Last Admin: 07/11/19 10:46 Dose: 18 units Insulin Human Lispro (Humalog*) 0 - 6 units SUBCUT Q6HR [facility]; Protocol Last Admin: 07/12/19 05:12 Dose: 2 units Lamotrigine (Lamictal Tab(*)) 50 mg PO BID [facility] Last Admin: 07/11/19 22:49 Dose: Not Given Levalbuterol HCl (Xopenex 0.63mg/3ml Neb*) 0.31 mg INH Q6H PRN PRN Reason: SOB/WHEEZING Last Admin: 06/25/19 21:39 Dose: 0.63 mg Methylprednisolone Sodium Succinate (Solu-Medrol 40 Mg) 5 mg IV BID@0900,2100 [facility] Last Admin: 07/11/19 22:40 Dose: 5 mg Metoprolol Tartrate (Lopressor Iv*) 2.5 mg IV Q6H [facility] Last Admin: 07/12/19 03:35 Dose: 2.5 mg Miscellaneous (Ativan Pyxis Rodriguez) 1 ea N/A .PYXIS RODRIGUEZ PRN PRN Reason: PER PROTOCOL Morphine Sulfate (Morphine Inj (Syringe))*) 1 mg IV Q2H PRN PRN Reason: .PAIN Last Admin: 07/12/19 05:11 Dose: 1 mg Pharmacy Consult (Zosyn Per Pharmacy*) 1 note FOLLOW UP .ZOSYN PER PHARMACY [facility] Ramipril (Altace Cap*) 5 mg PO DAILY [facility] Last Admin: 07/11/19 10:46 Dose: Not Given Spironolactone (Aldactone Tab*) 12.5 mg PO DAILY [facility] Last Admin: 07/11/19 10:46 Dose: Not Given Home Medications: Home Medications Medication Instructions Recorded Confirmed Type Digoxin TAB* [Lanoxin TAB*] 0.125 mg PO DAILY 11/14/17 06/23/19 History levETIRAcetam TAB* [Keppra TAB*] 750 mg PO BID tab 11/16/17 06/23/19 Rx Atorvastatin* [Lipitor 20 MG*] 20 mg PO BEDTIME 12/01/18 06/23/19 History lamoTRIgine TAB(*) [Lamictal 100 mg PO BID 12/01/18 06/23/19 History TAB(*)] Carvedilol TAB* [Coreg TAB*] 3.125 mg PO BID #60 tab 06/19/19 06/23/19 Rx Furosemide TAB* [Lasix TAB*] 20 mg PO 0800 5 Days #30 tab 06/19/19 06/23/19 Rx Levalbuterol 0.63MG/3ML NEB* 0.31 mg INH Q6H PRN #30 neb.soln 06/19/19 06/23/19 Rx [Xopenex 0.63MG/3ML NEB*] Spironolactone TAB* [Aldactone TAB 12.5 mg PO DAILY #30 tab 06/19/19 06/23/19 Rx 25 MG*] predniSONE TAB* [Deltasone 20 MG 5 mg PO DAILY #10 tab 06/19/19 06/23/19 Rx TAB*] Cephalexin 500 mg PO QID 06/23/19 06/23/19 History Warfarin TAB(*) [Coumadin TAB(*)] 0.5 mg PO DAILY@1700 06/23/19 06/23/19 History Allergies: Allergies Allergy/AdvReac Type Severity Reaction Status Date / Time No Known Allergies Allergy Verified 06/23/19 04:24 Objective - Vital Signs Vital Signs: Vital Signs 07/11/19 07/11/19 07/11/19 11:13 11:49 13:06 Temperature 97.5 F Pulse Rate 72 Respiratory 16 20 20 Rate Blood Pressure 139/66 (mmHg) O2 Sat by Pulse 98 Oximetry 07/11/19 07/11/19 07/11/19 15:34 19:43 19:57 Temperature 96.7 F Pulse Rate 111 91 Respiratory 22 24 20 Rate Blood Pressure 129/61 142/105 (mmHg) O2 Sat by Pulse 99 100 Oximetry 07/11/19 07/11/19 07/11/19 20:00 20:40 22:03 Temperature Pulse Rate Respiratory 20 16 26 Rate Blood Pressure (mmHg) O2 Sat by Pulse Oximetry 07/11/19 07/12/19 07/12/19 23:00 00:00 02:31 Temperature 97.3 F Pulse Rate 100 Respiratory 20 19 24 Rate Blood Pressure 148/91 (mmHg) O2 Sat by Pulse 99 Oximetry 07/12/19 07/12/19 07/12/19 03:22 04:00 05:11 Temperature 97.3 F Pulse Rate 92 Respiratory 20 21 20 Rate Blood Pressure 138/64 (mmHg) O2 Sat by Pulse 100 Oximetry 07/12/19 06:00 Temperature Pulse Rate Respiratory 18 Rate Blood Pressure (mmHg) O2 Sat by Pulse Oximetry - Intake and Output Intake and Output: Intake & Output 07/09/19 07/10/19 07/11/19 07/12/19 11:59 11:59 11:59 11:59 Intake Total 518 5659 6195 200 Output Total 4800 2900 900 2950 Balance -4282 2759 5295 -2750 Weight 108 lb 6.4 oz 101 lb 8 oz 97 lb Intake: IV Fluids 102 400 247 ABX - ZOSYN 37 200 165 Keppra 15 100 61 NS (0.9%) 50 100 21 IVPB 416 403 266 200 ABX - ZOSYN 211 303 266 100 Keppra 205 100 100 TPN/PPN 3556 5682 Oral 0 0 0 0 Joya Irrigate Amount 1300 Output: Joya 4800 2900 900 2950 Other: Estimated Void Large Large # Bowel Movements 1 0 0 Estimated Stool Amount Small # Voids 1 1 ADLs: Meal Record Start: 06/23/19 11: 08 Freq: 09,13,18 Status: Complete Protocol: Created 06/23/19 11:08 System (Rec: 06/23/19 11:08 System RU-C05) ADLs: Meal Record Start: 06/23/19 15: 24 Freq: DAILY@0900,1400,1800 Status: Active Protocol: Created 06/23/19 15:24 [id number] (Rec: 06/23/19 15:24 IRP9166 ICU-C25) Document 06/23/19 18:00 YYO0856 (Rec: 06/23/19 20:33 IZK7517 TELE-C07) Document 06/24/19 09:00 FNO1517 (Rec: 06/24/19 10:22 QCQ6641 TELE-C03) Document 06/24/19 18:00 PBX2726 (Rec: 06/24/19 18:15 UQN0316 TELE-C07) Document 06/25/19 08:58 CKR5342 (Rec: 06/25/19 08:59 MLW7136 TELE-M11) Document 06/25/19 13:57 JTR2783 (Rec: 06/25/19 13:59 SWL7416 TELE-M11) Document 06/25/19 18:00 YFE7986 (Rec: 06/25/19 22:40 EGS5364 TELE-C05) Document 06/26/19 10:00 KYY5644 (Rec: 06/26/19 11:06 BTL7756 ICU-C15) Document 06/26/19 18:00 BLX6590 (Rec: 06/26/19 18:05 JON0661 ICU-L03) Document 06/28/19 11:23 BRF2318 (Rec: 06/28/19 11:23 CEX8009 TELE-M21) Document 06/28/19 13:25 ZSD2818 (Rec: 06/28/19 13:25 MOU2016 TELE-M21) Document 06/28/19 21:48 UEB3635 (Rec: 06/28/19 21:48 VDZ7621 TELE-C11) Document 06/29/19 04:22 FFD6758 (Rec: 06/29/19 04:23 WBX9631 TELE-M21) Document 06/29/19 05:29 GVO3022 (Rec: 06/29/19 05:29 WJK3802 TELE-M21) Document 06/30/19 18:13 OID4988 (Rec: 06/30/19 18:13 PKT8347 TELE-M21) Document 07/01/19 09:50 JYO3812 (Rec: 07/01/19 09:50 PNG7463 TELE-M21) Document 07/01/19 13:21 FNI1037 (Rec: 07/01/19 13:21 ZOD0981 TELE-M21) Document 07/01/19 19:39 FTP0444 (Rec: 07/01/19 19:39 IRB1725 TELE-M21) Document 07/02/19 14:00 PCK8268 (Rec: 07/02/19 14:47 EXN8819 TELE-C05) Document 07/02/19 18:00 PTR8776 (Rec: 07/02/19 18:28 OZS2941 TELE-M21) Document 07/03/19 09:00 RLD9834 (Rec: 07/03/19 10:47 LQQ9568 TELE-C01) Document 07/03/19 12:58 UNW2241 (Rec: 07/03/19 12:58 NAK1045 TELE-C01) Document 07/03/19 18:00 FGT6358 (Rec: 07/03/19 20:00 JZT7959 TELE-C08) Document 07/04/19 09:00 OXH0742 (Rec: 07/04/19 09:37 TTP6100 TELE-M07) Document 07/04/19 12:44 KZA5320 (Rec: 07/04/19 12:44 RCC5453 TELE-M07) Document 07/04/19 18:00 TOV6988 (Rec: 07/04/19 18:07 NMX2433 TELE-M07) Document 07/05/19 09:00 CTJ9499 (Rec: 07/05/19 14:02 RJA2616 TELE-C11) Document 07/05/19 14:00 HZE5006 (Rec: 07/05/19 14:04 ZTK7641 TELE-C11) Document 07/05/19 18:00 ZGW4085 (Rec: 07/05/19 18:21 ELL6712 TELE-M15) Document 07/06/19 09:00 MAV1372 (Rec: 07/06/19 12:05 HMW8473 TELE-C08) Document 07/06/19 14:00 XRS8387 (Rec: 07/06/19 14:43 KBN1933 TELE-C03) Document 07/06/19 18:00 DXD0793 (Rec: 07/06/19 22:02 GUB5590 TELE-C09) Document 07/07/19 18:00 GRD9114 (Rec: 07/07/19 20:04 GHE4944 TELE-C11) Document 07/08/19 09:00 MYJ2581 (Rec: 07/08/19 09:54 NUV8438 TELE-C10) Document 07/08/19 13:50 VYM0790 (Rec: 07/08/19 13:51 NJS6851 TELE-C10) Document 07/08/19 18:00 QRW9553 (Rec: 07/08/19 20:09 YYK0368 TELE-C10) Document 07/09/19 08:42 FNK8295 (Rec: 07/09/19 08:43 WTP5650 TELE-C11) Document 07/09/19 13:14 TKX8112 (Rec: 07/09/19 13:14 APH0170 TELE-C11) Document 07/09/19 18:00 GYZ9759 (Rec: 07/09/19 21:14 QWR9996 MED-C09) Document 07/10/19 08:58 TWN7707 (Rec: 07/10/19 08:58 MXO5097 MED-C09) Document 07/10/19 13:34 IDP7410 (Rec: 07/10/19 13:34 PQE7656 MED-C09) Document 07/10/19 17:46 QKF4908 (Rec: 07/10/19 17:47 KAO7717 MED-C13) Document 07/11/19 09:00 ZQC6480 (Rec: 07/11/19 11:21 BAS5203 MED-C11) Document 07/11/19 14:00 QUY3687 (Rec: 07/11/19 14:18 MBG7252 MED-C13) Document 07/11/19 18:00 SCL6958 (Rec: 07/11/19 18:23 JZP2637 MED-C13) ADLs: Meal Record Start: 06/25/19 22: 26 Freq: Status: Complete Protocol: Created 06/25/19 22:26 CBN0151 (Rec: 06/25/19 22:26 RUE3165 ICU-C25) ADLs: Meal Record Start: 06/28/19 12: 17 Freq: Status: Cancelled Protocol: Created 06/28/19 12:17 ZTJ3450 (Rec: 06/28/19 12:17 QEX7401 TELE-M21) Intake and Output Start: 06/23/19 04: 23 Freq: Status: Inactive Protocol: Created 06/23/19 04:23 System (Rec: 06/23/19 04:23 System EDRM-C10) Intake and Output Start: 06/23/19 11: 08 Freq: Q1HR Status: Inactive Protocol: Created 06/23/19 11:08 System (Rec: 06/23/19 11:08 System PMRU-C05) Document 06/23/19 14:59 IVW6761 (Rec: 06/23/19 15:00 XRA1996 ICU-C25) Intake and Output Start: 06/23/19 15: 24 Freq: DAILY@0600,1400,2200 Status: Inactive Protocol: Document 06/23/19 12:00 XXR7598 (Rec: 06/23/19 15:26 DPP1576 ICU-C25) Created 06/23/19 15:24 IWW3179 (Rec: 06/23/19 15:24 NMT5755 ICU-C25) Document 06/23/19 21:29 KUU1817 (Rec: 06/23/19 21:30 RBU0095 TELE-C07) Document 06/24/19 06:00 TWH9085 (Rec: 06/24/19 06:06 XMC5544 TELE-C09) Document 06/24/19 22:00 UTU1281 (Rec: 06/24/19 22:36 MIY1615 TELE-C07) Document 06/25/19 05:51 HVL2929 (Rec: 06/25/19 05:52 BGY4998 TELE-C07) Document 06/25/19 12:11 PHE1569 (Rec: 06/25/19 12:12 XOG3875 TELE-M11) Intake and Output Start: 06/25/19 22: 26 Freq: 06,14,2200 Status: Active Protocol: Created 06/25/19 22:26 ZAH7651 (Rec: 06/25/19 22:26 JRQ5923 ICU-C25) Document 06/25/19 23:00 PKM9815 (Rec: 06/25/19 23:05 ACE9498 ICU-C25) Document 06/25/19 23:28 MQR9089 (Rec: 06/25/19 23:30 LPD1379 ICU-C16) Document 06/25/19 23:47 DKJ2065 (Rec: 06/25/19 23:47 JIE7023 ICU-C25) Document 06/26/19 01:00 HHB1698 (Rec: 06/26/19 02:24 SQA5176 ICU-C25) Document 06/26/19 02:00 DNF3728 (Rec: 06/26/19 02:24 QKJ7533 ICU-C25) Document 06/26/19 03:00 LPM2277 (Rec: 06/26/19 03:21 ERL8049 ICU-C25) Document 06/26/19 04:00 ZBW1753 (Rec: 06/26/19 04:13 PDI2293 ICU-C25) Document 06/26/19 05:00 OPL9266 (Rec: 06/26/19 05:01 EZQ8766 ICU-C25) Document 06/26/19 06:00 HCM2985 (Rec: 06/26/19 06:05 FUW2030 ICU-C25) Document 06/26/19 07:00 FOF5139 (Rec: 06/26/19 07:58 HSM9760 ICU-C15) Document 06/26/19 07:58 AEA4903 (Rec: 06/26/19 07:58 HDN9222 ICU-C15) Document 06/26/19 09:00 WTW7127 (Rec: 06/26/19 09:41 UEC2401 ICU-C15) Document 06/26/19 10:00 CPV5203 (Rec: 06/26/19 11:07 MRM0474 ICU-C15) Document 06/26/19 11:00 OAD2709 (Rec: 06/26/19 11:07 REB9871 ICU-C15) Document 06/26/19 12:00 NSV8325 (Rec: 06/26/19 12:14 VML1615 ICU-C15) Document 06/26/19 13:00 RKG3929 (Rec: 06/26/19 13:22 HJD6763 ICU-C15) Document 06/26/19 14:00 SFM9480 (Rec: 06/26/19 17:56 HEX9623 ICU-L03) Document 06/26/19 15:00 FLK8640 (Rec: 06/26/19 17:57 OLD0462 ICU-L03) Document 06/26/19 16:00 BMR1325 (Rec: 06/26/19 17:57 RYF5357 ICU-L03) Document 06/26/19 17:00 WQZ9683 (Rec: 06/26/19 17:57 EXX2274 ICU-L03) Document 06/26/19 17:57 PCV1982 (Rec: 06/26/19 17:57 UTB3474 ICU-L03) Document 06/26/19 19:00 SAE2831 (Rec: 06/26/19 19:08 NCQ1158 ISDEMO-M03 ) Document 06/26/19 20:00 GAI2414 (Rec: 06/26/19 20:05 MGK2793 ICU-C15) Document 06/26/19 21:00 HQR3463 (Rec: 06/26/19 22:09 TMZ6508 ISDEMO-M03 ) Document 06/26/19 22:00 HCJ1374 (Rec: 06/26/19 22:09 PUA0734 ISDEMO-M03 ) Document 06/26/19 23:00 UPR9416 (Rec: 06/26/19 23:20 TNC5560 ICU-C15) Document 06/26/19 23:59 AEW7351 (Rec: 06/26/19 23:59 VHC3415 ICU-C15) Document 06/27/19 01:00 ZJD1532 (Rec: 06/27/19 01:08 ATE6184 ICU-C15) Document 06/27/19 02:00 YLP0977 (Rec: 06/27/19 02:03 ISS6967 ICU-C15) Document 06/27/19 03:00 PCA9071 (Rec: 06/27/19 05:10 GVU0879 ICU-C15) Document 06/27/19 04:00 CTL9659 (Rec: 06/27/19 05:10 EWX0125 ICU-C15) Document 06/27/19 06:00 WYC3817 (Rec: 06/27/19 06:02 GTK2234 ICU-C15) Document 06/27/19 08:00 FOO2204 (Rec: 06/27/19 08:07 BGQ2783 ICU-C15) Document 06/27/19 09:31 VUH2258 (Rec: 06/27/19 09:31 GMW4933 ICU-C15) Document 06/27/19 11:00 HWE8454 (Rec: 06/27/19 11:10 PFY8321 ICU-C15) Document 06/27/19 13:45 DEX6578 (Rec: 06/27/19 13:56 CWS6232 ICU-C15) Document 07/02/19 07:36 DAJ2569 (Rec: 07/02/19 07:36 EPL3660 TELE-M20) Document 07/02/19 14:00 PSC4219 (Rec: 07/02/19 14:47 GDL3607 TELE-C05) Document 07/02/19 15:34 WLZ4243 (Rec: 07/02/19 15:34 MAK7324 TELE-M20) Document 07/02/19 21:53 RIQ7256 (Rec: 07/02/19 21:53 RGV2723 TELE-M21) Document 07/03/19 06:00 MXG4390 (Rec: 07/03/19 07:27 CRG3431 TELE-C10) Document 07/03/19 14:00 GJT8353 (Rec: 07/03/19 14:58 NEA3947 TELE-C01) Document 07/03/19 21:47 OID6370 (Rec: 07/03/19 21:47 GOE6745 TELE-C08) Document 07/04/19 03:30 XRC9526 (Rec: 07/04/19 07:00 PUW0552 MED-M16) Document 07/04/19 06:00 FPR7136 (Rec: 07/04/19 06:04 GDU1289 TELE-C08) Document 07/04/19 13:35 JJT7509 (Rec: 07/04/19 13:36 AED1735 TELE-M07) Document 07/04/19 21:32 VPO7257 (Rec: 07/04/19 21:37 WBA9971 TELE-M07) Document 07/05/19 06:00 NJN6102 (Rec: 07/05/19 07:03 YIL1527 TELE-C10) Document 07/05/19 14:00 BVA1249 (Rec: 07/05/19 14:30 BYS9407 TELE-C11) Document 07/05/19 22:00 ZBG1947 (Rec: 07/05/19 23:26 QEZ0165 TELE-C33) Document 07/06/19 05:48 BDV4501 (Rec: 07/06/19 05:49 GKU8432 TELE-M13) Document 07/06/19 14:00 DAX2392 (Rec: 07/06/19 14:43 WWF5175 TELE-C03) Document 07/06/19 22:00 JGB0657 (Rec: 07/06/19 22:05 AFG6506 TELE-C09) Document 07/07/19 03:57 FVD3647 (Rec: 07/07/19 03:57 WVU2573 TELE-C13) Document 07/07/19 05:37 KBT9324 (Rec: 07/07/19 05:37 XQK6568 TELE-C13) Document 07/07/19 22:00 EZC4047 (Rec: 07/07/19 22:42 YRL1640 TELE-C11) Document 07/08/19 06:00 VKO4195 (Rec: 07/08/19 07:55 OTK9661 TELE-C11) Document 07/08/19 13:51 NPS1369 (Rec: 07/08/19 13:51 VUE7168 TELE-C10) Document 07/08/19 22:00 EZE9635 (Rec: 07/08/19 22:40 SZR0473 TELE-C10) Document 07/09/19 06:00 RXG2361 (Rec: 07/09/19 06:09 JEW2920 TELE-C10) Document 07/09/19 13:14 ZDB9729 (Rec: 07/09/19 13:15 QLW0833 TELE-C11) Document 07/09/19 18:00 LPS2982 (Rec: 07/09/19 18:23 NAK7777 TELE-C05) Document 07/09/19 22:00 ZBQ7782 (Rec: 07/10/19 06:25 ZAC7994 MED-C11) Document 07/10/19 06:00 MXV2340 (Rec: 07/10/19 06:27 TWQ0504 MED-C11) Document 07/10/19 13:34 NSP4148 (Rec: 07/10/19 13:34 GZL2174 MED-C09) Document 07/10/19 22:00 KMZ8239 (Rec: 07/11/19 04:55 QZT2900 MED-C11) Document 07/11/19 04:56 EVZ2853 (Rec: 07/11/19 04:56 WWN3454 MED-C11) Document 07/11/19 14:00 USF8518 (Rec: 07/11/19 16:21 TJJ8819 MED-C11) Document 07/11/19 18:38 PTD2352 (Rec: 07/11/19 18:39 MBX2219 MED-C11) Document 07/11/19 22:00 FEJ8729 (Rec: 07/11/19 22:55 ILK1823 MED-C09) Document 07/12/19 05:35 VLP8310 (Rec: 07/12/19 05:35 TGI6359 MED-C09) - Physical Exam General Physical Exam Comment: She is restlessly moving her arms and legs, her eyes are open, but she doesn't respond to her name. General: No Cyanosis, No Jaundice, No Clubbing Lungs and Chest: Yes: Chest Expansion Full, Chest Expansion Symetrica, Percussion Note Resonant, Vessicular Breath Sounds, Wheezes. No: Crackles, Respiratory Distress Heart Rate and Rhythm: Regular Additional Cardiovascular: Yes: Normal Heart Sounds, Heart Murmur. No: Pedal Edema Abdominal Exam: Yes: Soft, Bowel Sounds Present. No: Distention, Abdominal Tenderness Results - Results Lab Results: Laboratory Results - last 24 hr 07/11/19 07/11/19 07/11/19 10:30 11:39 17:39 Sodium 145 Potassium 4.9 Chloride 115 H Carbon Dioxide 21 L Anion Gap 9 BUN 82 H Creatinine 1.57 H Est GFR ( Amer) 38.5 Est GFR (Non-Af Amer) 31.8 BUN/Creatinine Ratio 52.2 H Glucose 173 H POC Glucose (mg/dL) 206 H 200 H Calcium 9.4 07/11/19 07/12/19 23:27 04:57 Sodium Potassium Chloride Carbon Dioxide Anion Gap BUN Creatinine Est GFR ( Amer) Est GFR (Non-Af Amer) BUN/Creatinine Ratio Glucose POC Glucose (mg/dL) 190 H 249 H Calcium Radiology Results: Patient Name: ELHAM CHOPRA Medical Record#: [id number] Ordering Physician: Jigar Biswas MD Acct.#: [id number] : 1940 Age: 79 Sex: F Location: [address] [place] [address] - MEDICAL Exam Date: 08/13/19 0818 ADM Status: ADM IN Order Information: CT BRAIN WO Accession Number: [id number] CPT: 15076 HISTORY: encephalopathy/unresponsiveness COMPARISONS: June 24, 2019 TECHNIQUE: Multiple contiguous axial CT scans were obtained of the head without intravenous contrast. Coronal and sagittal multiplanar reformations are also submitted for review. FINDINGS: The study is limited by patient motion artifact. HEMORRHAGE/INFARCT: There is no hemorrhage or acute infarct. MASSES/SHIFT: There is no mass or shift. EXTRA-AXIAL SPACES: There are no extra-axial fluid collections. SULCI AND VENTRICLES: There is diffuse and proportional enlargement of the sulci and ventricles. CEREBRUM: There is hypoattenuation of the periventricular and subcortical white matter. Again noted is encephalomalacia within the left [employer] territory consistent with remote infarct. BRAINSTEM: There are no focal parenchymal abnormalities. CEREBELLUM: There are no focal parenchymal abnormalities. VESSELS: There is calcification of the cavernous segments of the internal carotid arteries bilaterally and of the distal vertebral arteries bilaterally. PARANASAL SINUSES: There is an air-fluid level within left maxillary sinus. ORBITS: The orbits are unremarkable. BONES AND SOFT TISSUE: No bone or soft tissue abnormalities are noted. OTHER: None IMPRESSION: 1. NO ACUTE INTRACRANIAL PATHOLOGY. 2. DIFFUSE INVOLUTIONAL CHANGE WITH CHRONIC SMALL VESSEL ISCHEMIC CHANGES. 3. REMOTE LEFT [employer]CH[employer]ICIAN TERRITORY INFARCT. 4. MILD SINUS MUCOSAL INFLAMMATORY DISEASE, WITH AN AIR-FLUID LEVEL IN THE LEFT MAXILLARY SINUS. IN THE CORRECT CLINICAL SETTING, THIS MAY REPRESENT ACUTE SINUSITIS. <Electronically signed by Serafin Paige MD in [place]> 07/11/19 1358 Dictated By: Serafin Paige MD Dictated Date/Time: 07/11/19 1358 Transcribed Date/Time: 07/11/19 1356 This report is only to be considered final once signed by the Provider(s) as displayed in the "<Electronically Signed by >" field (s). Absence of a signature indicates the report is in a draft status and still needs to be finalized. In the event this document was created by someone other than the signing Provider, the individual initiating the document will be listed in the "Entered by:" or "Dictated by:" mitchell. 1 of 2 Other Results/Reports: Electroencephalogram Report Patient: ELHAM CHOPRA /Age: 06 1940 79 Medical Record#: [id number] Admission Date: 06/23/19 Provider: Kevin Irvin MD ELECTROENCEPHALOGRAPHY: DATE OF STUDY: DATE OF DICTATION: 07/11/19 PATIENT OF: Dr. Biswas.* CLINICAL PROBLEM: This is a 79-year-old woman being evaluated for altered mental status with past history including seizure disorder, liver failure, atrial fibrillation, COPD. MEDICATIONS: Include: 1. Lovenox. 2. Pepcid. 3. Lasix. 4. Lamictal. 5. Solu-Medrol. 6. Altace. 7. Aldactone. 8. Lopressor. 9. Lantus. 10. Keppra. 11. Humalog. 12. Zosyn. 13. Lipitor. 14. Lanoxin 15. Haldol. 16. Xopenex. 17. Apresoline. 18. Ativan. 19. Morphine. REPORT: With the patient awake, background cerebral activity consists of admixed diffuse rhythm that reaches 6 to 7 Hz in frequency, occasional left temporal sharp waves are noted. With the patient apparently asleep, background consists of diffuse irregular delta and theta activity. No subclinical seizures are noted. CLINICAL IMPRESSION: This EEG is abnormal because of diffuse slowing of background consistent with an encephalopathy, but not specific as to etiology. There are some left temporal sharp waves that suggested predisposition to a focal seizure disorder. 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 I ruled out status complex partial seizures and major brain hemorrhage/new stroke yesterday. At present we are in a watch and wait mode for her to snap out of this encephalopathy. I am watching her electrolytes carefully and her psychoactive medications. Lower respiratory tract infection (Acute) According to her CRP and clinical state, this is likely cured. She has ~17 days of IV antibacterials. I will discuss stopping this with infectious disease given her bronchiectasis. On total parenteral nutrition (Acute) I await the TPN panel. 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 Agrees with current management.
[2019-07-12 09:34] LABS: Albumin 3.1 g/dL (3.2-5.2); Albumin/Globulin Ratio 1.1 (1-3); BUN/Creatinine Ratio 63.3 (8-20); Calcium 9.4 mg/dL (8.6-10.3); EGFR African American 48.7 (>60); EGFR Non-African American 40.2 (>60); Globulin 2.8 g/dL (2-4); Magnesium 2.4 mg/dL (1.9-2.7); Phosphorus 3.3 mg/dL (2.5-5.0); Total Bilirubin 5.4 mg/dL (0.2-1.0); Total Protein 5.9 g/dL (6.4-8.9)
[2019-07-12 09:35] LABS: Potassium 5.1 mmol/L (3.5-5.0)
[2019-07-12] MEDS: methylPREDNISolone SOD 40 MG* 1 ML VIAL IV SCH (09:49)
[2019-07-12] MEDS: Furosemide IV* 10 MG/ML 2 ML VIAL (20 MG) IV SCH (09:49)
[2019-07-12] MEDS: Enoxaparin(*) 30 MG/0.3 ML SYR SUBCUT SCH (09:50)
[2019-07-12] MEDS: Famotidine IV* 10 MG/ML 2 ML (20 mg) IV SLOW PU SCH ×2 (09:50→20:26)
[2019-07-12] MEDS: Ramipril CAP* 5 MG PO SCH (09:53)
[2019-07-12] MEDS: Spironolactone TAB* 25 MG PO SCH (09:53)
[2019-07-12] MEDS: lamoTRIgine TAB(*) 100 MG PO SCH ×2 (09:53→21:36)
[2019-07-12] MEDS ORDERED: D5W 1/2 NS 1000 ML BAG* 1,000 ML IV SCH (11:00)
[2019-07-12] MEDS ORDERED: Metoprolol Tartrate IV* 1 MG/ML 5 ML VIAL ONE (11:45)
[2019-07-12] MEDS ORDERED: Furosemide IV* 10 MG/ML VIAL (40 MG) ONE (11:45)
[2019-07-12] MEDS ORDERED: Morphine INJ* 2 MG/ML 1 ML SYRINGE (TWO MG - NEW SYRINGE VERSION) IV ONE (12:04)
--- NOTE | 2019-07-12 12:19 | PN ---
Progress Note - Progress Note Date of Service: 07/12/19 Note: I was asked to the bedside to see the patient who is having significant respiratory distress. She is now on 15L O2 saturating 88-89%, tachycardic in the 120-130's, tachypnic and encephalopathic. She does not answer any questions or speak at all. Dr. Biswas had been called previously and ordered lasix for concerns of acute pulmonary edema (has a h/o this). TPN discontinued. I do not appreciate any crackles on exam. She does not have any fluid overload. She has significant accessory muscle use. I spoke with Dr. Biswas who indicated the patient may not do well with going to the ICU due to her severe delirium. Will trial morphine 2mg IV now and see if that and the lasix helps her breathing. If no improvement will likely transfer to the ICU for BiPAP. Will get stat portable CXR, EKG, lactic acid and troponin.
[2019-07-12] MEDS: Insulin GLARGINE(*) 1 UNITS UNIT SUBCUT SCH (12:23)
[2019-07-12] MEDS ORDERED: NS 0.9% 1000 ML** 1,000 ML IV ONE ×2 (12:30→13:30)
[2019-07-12] MEDS ORDERED: Furosemide IV* 10 MG/ML VIAL (40 MG) IV ONE ×2 (13:00→21:00)
[2019-07-12] MEDS ORDERED: Metoprolol Tartrate IV* 1 MG/ML 5 ML VIAL IV ONE (13:00)
[2019-07-12 13:08] LABS: Troponin I 0.07 ng/mL (<0.04)
[2019-07-12] MEDS: levETIRAcetam IV* 250 MG in NS 0.9% 100 ML* 100 ML IVPB SCH (13:42)
[2019-07-12] MEDS: ORALSYR PO SCH (17:50)
[2019-07-12] MEDS: DIGOXIN PO SCH (17:50)
[2019-07-12] MEDS: Atorvastatin* 40 MG TAB PO SCH (17:50)
[2019-07-12] MEDS: TPN* 24 HR with Dextrose 50% Water* 500 ML, Amino Acid Infusion 10%* 850 ML, Sterile Wa... CENTR SCH ×12 (19:54)
[2019-07-13] MEDS: Morphine INJ* 2 MG/ML 1 ML SYRINGE (TWO MG - NEW SYRINGE VERSION) IV PRN ×5 (01:20→20:00)
[2019-07-13] MEDS: Haloperidol INJ IV/IM* 5 MG/ML AMP IV SLOW PU PRN (02:44)
[2019-07-13] MEDS: levETIRAcetam IV* 250 MG in NS 0.9% 100 ML* 100 ML IVPB SCH ×2 (03:00→10:40)
[2019-07-13] MEDS: Metoprolol Tartrate IV* 1 MG/ML 5 ML VIAL IV SCH ×4 (03:30→20:26)
[2019-07-13] MEDS: Insulin LISPRO* 1 UNITS UNIT SUBCUT SCH ×4 (03:51→17:20)
[2019-07-13] MEDS: ZOSYN 3.375 GM Q8H per EXTENDED INFUSION IVPB SCH ×4 (05:31→14:16)
[2019-07-13 06:06] LABS: C Reactive Protein 26.14 mg/L (<8.01)
--- NOTE | 2019-07-13 07:34 | PN ---
Subjective - Subjective Reason for Note: Progress Note History: Yesterday she had an acute episode of respiratory failure due to pulmonary edema and likely volume overload. We stopped the TPN overnight and gave her diuretics. This morning she is awake, alert and appears to be responsive. However, she is aphasic. She is unable to express herself and doesn't follow one step commands. Active Problems: Active Problems Altered mental state (Acute) R41.82 Pt is even more confused and agitated today compared to yesterday at my visit. Cause of her confusion is not clear. There is no evidence of infection. CT brain negative for any acute findings. ? hospital acquired delirium in the setting of a person who at baseline is mild to moderately confused (per [facility] staff) vs related to EtOH withdrawl (seems unlikely as pt has no other signs of withdrawl) vs non convulsive status (also unlikely given how verbal and active she has been). I trialed seroquel 25mg last night and reportedly she had an ok night. Given the screaming and marked agitation at this time will give haldol 2mg IV x1 now to see if she will settle and be more appropriate with her care. Aphasia (Acute) R47.01 CHF, acute (Acute) I50.9 Pt was felt to have acute diastolic CHF/flash pulmonary edema on presenation. She required BiPAP for acute hypoxic resp failure. This is now resolved. She is now on RA. Resume lasix and spironolactone- I doubt she will take her meds at this time. Lower respiratory tract infection (Acute) J22 On total parenteral nutrition (Acute) Z78.9 Respiratory distress (Acute) R06.03 Steroid-induced diabetes (Acute) Volume overload (Acute) E87.70 Alcohol dependence (Chronic) F10.20 As pt is unable to tell me anything useful, it is unclear if she is still drinking. She does not appear to be withdrawling from EtOH. Anemia (Chronic) D64.9 Anticoagulated (Chronic) Z79.01 Atrial fibrillation (Chronic) I48.91 Pt is in afib but controlled rate. Continue coreg and digoxin and coumadin. Recheck INR tomorrow. Pt refused labs this AM. Bronchiectasis (Chronic) J47.9 COPD (chronic obstructive pulmonary disease) (Chronic) J44.9 No signs of exacerbation. Stop solumedrol. Monitor respiratory status. 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 Continue keppra and lamotrigine. Keppra level sent last night just prior to her receiving her evening dose. Current Medications: Current Medications Acetaminophen (Tylenol Tab*) 650 mg PO Q4H PRN PRN Reason: FEVER/PAIN Atorvastatin Calcium (Lipitor*) 40 mg PO 1700 [facility] Last Admin: 07/12/19 17:50 Dose: Not Given Dextrose (D50w Syringe 50 Ml*) 12.5 gm IV PUSH .FOR FS < 60 - SS PRN PRN Reason: FS < 60 Digoxin (Lanoxin Liq* Oralsyr) 0.125 mg PO 1700 [facility] Last Admin: 07/12/19 17:50 Dose: Not Given Enoxaparin Sodium (Lovenox(*)) 30 mg SUBCUT Q24H [facility] Last Admin: 07/12/19 09:50 Dose: 30 mg Famotidine (Pepcid Iv*) 20 mg IV SLOW PU BID [facility] Last Admin: 07/12/19 20:26 Dose: 20 mg Furosemide (Lasix Iv*) 20 mg IV DAILY [facility] Last Admin: 07/12/19 09:49 Dose: 20 mg Haloperidol Lactate (Haldol Inj Iv/Im*) 2.5 mg IV SLOW PU Q8H PRN PRN Reason: AGITATION Last Admin: 07/13/19 02:44 Dose: 2.5 mg Heparin Sodium (Porcine) (Heparin Flush Picc/Ml/Cvc(*)) 0 ml FLUSH 0600,1800 [facility] Last Admin: 07/13/19 05:31 Dose: 1 ml Hydralazine HCl (Apresoline Iv*) 5 mg IV SLOW PU Q4H PRN PRN Reason: SBP > 160 Last Admin: 06/28/19 19:46 Dose: 5 mg Piperacillin Sod/Tazobactam (Sod 3.375 gm/ Sodium Chloride) 100 mls @ 25 mls/ hr IVPB Q8H [facility] Last Admin: 07/13/19 05:31 Dose: 25 mls/hr Levetiracetam 250 mg/ Sodium (Chloride) 102.5 mls @ 410 mls/hr IVPB Q12H [facility] Last Admin: 07/13/19 03:00 Dose: 410 mls/hr Dextrose 500 ml/ Amino Acids 850 ml/ Sterile Water 150 ml/Fat Emulsion Intravenous 250 ml/ Sodium Chloride 25 meq/Potassium Chloride 80 meq/Potassium Phosphate 15 mmole/Calcium Gluconate 15 meq/Magnesium Sulfate 10 meq/ Multivitamins 10 ml/ Trace Metals 1 ml/ Nutrition ( Parenteral) 1,846.971 mls @ 76.957 mls/hr CENTR 1700 [facility] Last Admin: 07/12/19 19:54 Dose: Not Given Insulin Glargine (Lantus(*)) 18 units SUBCUT Q24H [facility] Last Admin: 07/12/19 12:23 Dose: 18 units Insulin Human Lispro (Humalog*) 0 - 6 units SUBCUT Q6HR [facility]; Protocol Last Admin: 07/13/19 05:42 Dose: Not Given Lamotrigine (Lamictal Tab(*)) 50 mg PO BID [facility] Last Admin: 07/12/19 21:36 Dose: Not Given Levalbuterol HCl (Xopenex 0.63mg/3ml Neb*) 0.31 mg INH Q6H PRN PRN Reason: SOB/WHEEZING Last Admin: 06/25/19 21:39 Dose: 0.63 mg Methylprednisolone Sodium Succinate (Solu-Medrol 40 Mg) 5 mg IV DAILY [facility] Last Admin: 07/12/19 09:49 Dose: 5 mg Metoprolol Tartrate (Lopressor Iv*) 2.5 mg IV Q6H [facility] Last Admin: 07/13/19 03:30 Dose: Not Given Miscellaneous (Ativan Pyxis Rodriguez) 1 ea N/A .PYXIS RODRIGUEZ PRN PRN Reason: PER PROTOCOL Morphine Sulfate (Morphine Inj (Syringe))*) 1 mg IV Q2H PRN PRN Reason: .PAIN Last Admin: 07/13/19 05:34 Dose: 1 mg Ramipril (Altace Cap*) 5 mg PO DAILY [facility] Last Admin: 07/12/19 09:53 Dose: Not Given Spironolactone (Aldactone Tab*) 12.5 mg PO DAILY [facility] Last Admin: 07/12/19 09:53 Dose: Not Given Home Medications: Home Medications Medication Instructions Recorded Confirmed Type Digoxin TAB* [Lanoxin TAB*] 0.125 mg PO DAILY 11/14/17 06/23/19 History levETIRAcetam TAB* [Keppra TAB*] 750 mg PO BID tab 11/16/17 06/23/19 Rx Atorvastatin* [Lipitor 20 MG*] 20 mg PO BEDTIME 12/01/18 06/23/19 History lamoTRIgine TAB(*) [Lamictal 100 mg PO BID 12/01/18 06/23/19 History TAB(*)] Carvedilol TAB* [Coreg TAB*] 3.125 mg PO BID #60 tab 06/19/19 06/23/19 Rx Furosemide TAB* [Lasix TAB*] 20 mg PO 0800 5 Days #30 tab 06/19/19 06/23/19 Rx Levalbuterol 0.63MG/3ML NEB* 0.31 mg INH Q6H PRN #30 neb.soln 06/19/19 06/23/19 Rx [Xopenex 0.63MG/3ML NEB*] Spironolactone TAB* [Aldactone TAB 12.5 mg PO DAILY #30 tab 06/19/19 06/23/19 Rx 25 MG*] predniSONE TAB* [Deltasone 20 MG 5 mg PO DAILY #10 tab 06/19/19 06/23/19 Rx TAB*] Cephalexin 500 mg PO QID 06/23/19 06/23/19 History Warfarin TAB(*) [Coumadin TAB(*)] 0.5 mg PO DAILY@1700 06/23/19 06/23/19 History Allergies: Allergies Allergy/AdvReac Type Severity Reaction Status Date / Time No Known Allergies Allergy Verified 06/23/19 04:24 Objective - Vital Signs Vital Signs: Vital Signs 07/12/19 07/12/19 07/12/19 09:20 09:45 10:56 Temperature 98.8 F Pulse Rate 112 Respiratory 22 22 20 Rate Blood Pressure 142/45 (mmHg) O2 Sat by Pulse 96 Oximetry 07/12/19 07/12/19 07/12/19 11:45 11:47 11:56 Temperature 98.1 F Pulse Rate 176 95 Respiratory 46 Rate Blood Pressure 113/80 113/80 136/97 (mmHg) O2 Sat by Pulse 81 93 Oximetry 07/12/19 07/12/19 07/12/19 12:17 12:30 12:32 Temperature Pulse Rate 89 71 Respiratory 42 44 Rate Blood Pressure 77/51 66/45 (mmHg) O2 Sat by Pulse 97 97 Oximetry 07/12/19 07/12/19 07/12/19 12:38 12:44 12:50 Temperature Pulse Rate 70 69 73 Respiratory Rate Blood Pressure 65/42 62/43 74/45 (mmHg) O2 Sat by Pulse 99 Oximetry 07/12/19 07/12/19 07/12/19 12:54 13:00 13:05 Temperature Pulse Rate 83 86 Respiratory Rate Blood Pressure 78/42 73/50 76/44 (mmHg) O2 Sat by Pulse 99 100 100 Oximetry 07/12/19 07/12/19 07/12/19 13:10 13:15 13:23 Temperature Pulse Rate 84 83 Respiratory 22 Rate Blood Pressure 101/66 89/50 78/23 (mmHg) O2 Sat by Pulse Oximetry 07/12/19 07/12/19 07/12/19 13:26 13:37 14:08 Temperature Pulse Rate 113 119 85 Respiratory Rate Blood Pressure 122/64 108/58 73/48 (mmHg) O2 Sat by Pulse Oximetry 07/12/19 07/12/19 07/12/19 14:20 14:35 14:50 Temperature Pulse Rate 90 75 84 Respiratory Rate Blood Pressure 75/46 88/44 97/47 (mmHg) O2 Sat by Pulse Oximetry 07/12/19 07/12/19 07/12/19 15:04 15:19 15:35 Temperature Pulse Rate 87 82 83 Respiratory Rate Blood Pressure 83/51 90/50 87/50 (mmHg) O2 Sat by Pulse Oximetry 07/12/19 07/12/19 07/12/19 15:50 16:02 16:19 Temperature Pulse Rate 115 Respiratory Rate Blood Pressure 139/51 162/81 98/41 (mmHg) O2 Sat by Pulse 98 Oximetry 07/12/19 07/12/19 07/12/19 16:36 16:51 17:05 Temperature Pulse Rate 110 76 Respiratory 18 Rate Blood Pressure 80/49 72/51 65/51 (mmHg) O2 Sat by Pulse 100 Oximetry 07/12/19 07/12/19 07/12/19 17:21 17:35 17:52 Temperature Pulse Rate 90 100 Respiratory 26 Rate Blood Pressure 67/41 93/58 154/56 (mmHg) O2 Sat by Pulse 100 Oximetry 07/12/19 07/12/19 07/12/19 18:05 18:36 18:48 Temperature 97.5 F Pulse Rate 85 76 94 Respiratory 30 Rate Blood Pressure 81/48 80/45 145/80 (mmHg) O2 Sat by Pulse 100 Oximetry 07/12/19 07/12/19 07/12/19 19:04 19:21 19:28 Temperature Pulse Rate 100 104 108 Respiratory 26 Rate Blood Pressure 98/20 135/55 123/89 (mmHg) O2 Sat by Pulse Oximetry 07/12/19 07/12/19 07/12/19 19:36 20:00 20:02 Temperature Pulse Rate 99 42 96 Respiratory 22 Rate Blood Pressure 126/60 116/63 119/61 (mmHg) O2 Sat by Pulse 81 100 Oximetry 07/12/19 07/12/19 07/12/19 20:15 20:25 20:26 Temperature Pulse Rate 83 87 Respiratory 26 Rate Blood Pressure 104/57 135/56 (mmHg) O2 Sat by Pulse 100 Oximetry 07/12/19 07/12/19 07/12/19 20:32 20:45 21:00 Temperature Pulse Rate 84 80 92 Respiratory 24 Rate Blood Pressure 99/52 107/52 105/58 (mmHg) O2 Sat by Pulse Oximetry 07/12/19 07/12/19 07/12/19 21:15 21:30 21:36 Temperature Pulse Rate 86 87 Respiratory 23 22 Rate Blood Pressure 91/52 81/45 (mmHg) O2 Sat by Pulse 100 100 Oximetry 07/12/19 07/12/19 07/12/19 21:45 22:00 22:15 Temperature Pulse Rate 79 79 83 Respiratory 22 Rate Blood Pressure 88/52 93/46 93/55 (mmHg) O2 Sat by Pulse 100 100 100 Oximetry 07/12/19 07/12/19 07/12/19 22:30 22:45 23:00 Temperature Pulse Rate 88 93 80 Respiratory Rate Blood Pressure 91/53 99/59 89/47 (mmHg) O2 Sat by Pulse 100 100 100 Oximetry 07/12/19 07/12/19 07/12/19 23:15 23:30 23:45 Temperature Pulse Rate 84 87 86 Respiratory Rate Blood Pressure 102/57 91/57 114/65 (mmHg) O2 Sat by Pulse 99 100 Oximetry 07/13/19 07/13/19 07/13/19 00:00 00:15 00:30 Temperature 97.1 F Pulse Rate 73 70 87 Respiratory 17 Rate Blood Pressure 81/44 84/47 91/49 (mmHg) O2 Sat by Pulse 99 100 100 Oximetry 07/13/19 07/13/19 07/13/19 01:00 01:20 02:30 Temperature Pulse Rate 84 91 Respiratory 26 20 Rate Blood Pressure 92/51 110/62 (mmHg) O2 Sat by Pulse 99 98 Oximetry 07/13/19 07/13/19 07/13/19 03:35 04:35 05:00 Temperature 97.3 F Pulse Rate 85 Respiratory 17 16 18 Rate Blood Pressure 104/65 (mmHg) O2 Sat by Pulse 100 Oximetry 07/13/19 05:34 Temperature Pulse Rate Respiratory 20 Rate Blood Pressure (mmHg) O2 Sat by Pulse Oximetry - Intake and Output Intake and Output: Intake & Output 07/10/19 07/11/19 07/12/19 07/13/19 11:59 11:59 11:59 11:59 Intake Total 5659 6195 4461 3626 Output Total 2900 900 2950 2500 Balance 2759 5295 1511 1126 Weight 101 lb 8 oz 97 lb 114 lb 11.2 oz Intake: IV Fluids 940 281 8832 40 ABX - ZOSYN 200 165 100 20 Keppra 100 61 20 NS (0.9%) 580 75 3149 IVPB 403 266 200 300 ABX - ZOSYN 303 266 100 200 Keppra 100 100 100 TPN/PPN 3556 0132 2161 3286 Oral 0 0 0 0 Joya Irrigate Amount 1300 Output: Joya 2900 900 2950 2500 Other: Estimated Void Large Large # Bowel Movements 0 0 0 # Voids 1 1 ADLs: Meal Record Start: 06/23/19 11: 08 Freq: ,, Status: Complete Protocol: Created 06/23/19 11:08 System (Rec: 06/23/19 11:08 System PMRU-C05) ADLs: Meal Record Start: 06/23/19 15: 24 Freq: DAILY@0900,1400,1800 Status: Active Protocol: Created 06/23/19 15:24 [id number] (Rec: 06/23/19 15:24 IUJ2445 ICU-C25) Document 06/23/19 18:00 HEL0813 (Rec: 06/23/19 20:33 EZV5756 TELE-C07) Document 06/24/19 09:00 JNM5614 (Rec: 06/24/19 10:22 SNC9505 TELE-C03) Document 06/24/19 18:00 KEN9890 (Rec: 06/24/19 18:15 MYB0092 TELE-C07) Document 06/25/19 08:58 DLR2237 (Rec: 06/25/19 08:59 XJO2635 TELE-M11) Document 06/25/19 13:57 SCF7534 (Rec: 06/25/19 13:59 XLB1551 TELE-M11) Document 06/25/19 18:00 MMA2094 (Rec: 06/25/19 22:40 YEO9477 TELE-C05) Document 06/26/19 10:00 LGR3013 (Rec: 06/26/19 11:06 XOK2342 ICU-C15) Document 06/26/19 18:00 ORQ9423 (Rec: 06/26/19 18:05 VRV7378 ICU-L03) Document 06/28/19 11:23 BCX1807 (Rec: 06/28/19 11:23 GFU0462 TELE-M21) Document 06/28/19 13:25 NLX3353 (Rec: 06/28/19 13:25 PLS5589 TELE-M21) Document 06/28/19 21:48 IAH0494 (Rec: 06/28/19 21:48 NER9269 TELE-C11) Document 06/29/19 04:22 JDF2334 (Rec: 06/29/19 04:23 EFF6864 TELE-M21) Document 06/29/19 05:29 ROU7735 (Rec: 06/29/19 05:29 OAT0078 TELE-M21) Document 06/30/19 18:13 WVI2190 (Rec: 06/30/19 18:13 IYH4891 TELE-M21) Document 07/01/19 09:50 MEN1801 (Rec: 07/01/19 09:50 KET0525 TELE-M21) Document 07/01/19 13:21 DOG6999 (Rec: 07/01/19 13:21 VJT0375 TELE-M21) Document 07/01/19 19:39 IWH7203 (Rec: 07/01/19 19:39 OFC5714 TELE-M21) Document 07/02/19 14:00 TPW5985 (Rec: 07/02/19 14:47 OWP0173 TELE-C05) Document 07/02/19 18:00 YDF7588 (Rec: 07/02/19 18:28 BHA8539 TELE-M21) Document 07/03/19 09:00 PHE1737 (Rec: 07/03/19 10:47 HNB9255 TELE-C01) Document 07/03/19 12:58 ESA0407 (Rec: 07/03/19 12:58 KTU1062 TELE-C01) Document 07/03/19 18:00 STD3705 (Rec: 07/03/19 20:00 NYX3148 TELE-C08) Document 07/04/19 09:00 FBP0238 (Rec: 07/04/19 09:37 KRF9639 TELE-M07) Document 07/04/19 12:44 FSF8041 (Rec: 07/04/19 12:44 AZV6767 TELE-M07) Document 07/04/19 18:00 ZHH4203 (Rec: 07/04/19 18:07 MSZ5345 TELE-M07) Document 07/05/19 09:00 EKH6500 (Rec: 07/05/19 14:02 SZM3833 TELE-C11) Document 07/05/19 14:00 OYD3186 (Rec: 07/05/19 14:04 GYY8921 TELE-C11) Document 07/05/19 18:00 OJR9754 (Rec: 07/05/19 18:21 WKY5520 TELE-M15) Document 07/06/19 09:00 XJM2102 (Rec: 07/06/19 12:05 BQY9817 TELE-C08) Document 07/06/19 14:00 LJZ8586 (Rec: 07/06/19 14:43 ZTR0748 TELE-C03) Document 07/06/19 18:00 WCE2234 (Rec: 07/06/19 22:02 YBU0576 TELE-C09) Document 07/07/19 18:00 JPS5656 (Rec: 07/07/19 20:04 GPD5206 TELE-C11) Document 07/08/19 09:00 QRC6595 (Rec: 07/08/19 09:54 RNA7204 TELE-C10) Document 07/08/19 13:50 VUK1938 (Rec: 07/08/19 13:51 QMT7040 TELE-C10) Document 07/08/19 18:00 OIW2021 (Rec: 07/08/19 20:09 UZO5210 TELE-C10) Document 07/09/19 08:42 YFL4783 (Rec: 07/09/19 08:43 JYY5746 TELE-C11) Document 07/09/19 13:14 EFS5054 (Rec: 07/09/19 13:14 YQX9204 TELE-C11) Document 07/09/19 18:00 EFA1114 (Rec: 07/09/19 21:14 ZJF4074 MED-C09) Document 07/10/19 08:58 TRG0904 (Rec: 07/10/19 08:58 UAH8669 MED-C09) Document 07/10/19 13:34 FZU9384 (Rec: 07/10/19 13:34 XVQ1607 MED-C09) Document 07/10/19 17:46 GRG2828 (Rec: 07/10/19 17:47 YOL7943 MED-C13) Document 07/11/19 09:00 HXS2225 (Rec: 07/11/19 11:21 SLX9466 MED-C11) Document 07/11/19 14:00 UQM2828 (Rec: 07/11/19 14:18 WTV5557 MED-C13) Document 07/11/19 18:00 ZGL7490 (Rec: 07/11/19 18:23 MKC8522 MED-C13) Document 07/12/19 09:00 QJJ4073 (Rec: 07/12/19 09:17 REM6839 MED-C05) Document 07/12/19 14:00 ZJY5084 (Rec: 07/12/19 14:16 JJW7922 MED-C05) Document 07/12/19 18:00 EFE3815 (Rec: 07/12/19 22:01 LYM0214 MED-C02) ADLs: Meal Record Start: 06/25/19 22: 26 Freq: Status: Complete Protocol: Created 06/25/19 22:26 PZK9665 (Rec: 06/25/19 22:26 SME1812 ICU-C25) ADLs: Meal Record Start: 06/28/19 12: 17 Freq: Status: Cancelled Protocol: Created 06/28/19 12:17 KTK4291 (Rec: 06/28/19 12:17 GLA7878 TELE-M21) Intake and Output Start: 06/23/19 04: 23 Freq: Status: Inactive Protocol: Created 06/23/19 04:23 System (Rec: 06/23/19 04:23 System EDRM-C10) Intake and Output Start: 06/23/19 11: 08 Freq: Q1HR Status: Inactive Protocol: Created 06/23/19 11:08 System (Rec: 06/23/19 11:08 System PMRU-C05) Document 06/23/19 14:59 LBK1295 (Rec: 06/23/19 15:00 RFY5525 ICU-C25) Intake and Output Start: 06/23/19 15: 24 Freq: DAILY@0600,1400,2200 Status: Inactive Protocol: Document 06/23/19 12:00 VZN2231 (Rec: 06/23/19 15:26 FSG2662 ICU-C25) Created 06/23/19 15:24 DBW5550 (Rec: 06/23/19 15:24 XFY4341 ICU-C25) Document 06/23/19 21:29 WWI6935 (Rec: 06/23/19 21:30 PXP6153 TELE-C07) Document 06/24/19 06:00 MOX4893 (Rec: 06/24/19 06:06 GEX9815 TELE-C09) Document 06/24/19 22:00 KCE0864 (Rec: 06/24/19 22:36 BQF4520 TELE-C07) Document 06/25/19 05:51 DFM1497 (Rec: 06/25/19 05:52 EZU7715 TELE-C07) Document 06/25/19 12:11 DDU4689 (Rec: 06/25/19 12:12 IRW4196 TELE-M11) Intake and Output Start: 06/25/19 22: 26 Freq: 06,14,2200 Status: Active Protocol: Created 06/25/19 22:26 OHC7511 (Rec: 06/25/19 22:26 CCH5658 ICU-C25) Document 06/25/19 23:00 MPR0475 (Rec: 06/25/19 23:05 JZA4344 ICU-C25) Document 06/25/19 23:28 AHY4871 (Rec: 06/25/19 23:30 ARN5518 ICU-C16) Document 06/25/19 23:47 DMX1380 (Rec: 06/25/19 23:47 CIO1779 ICU-C25) Document 06/26/19 01:00 UDA2147 (Rec: 06/26/19 02:24 ZGB0953 ICU-C25) Document 06/26/19 02:00 ZMH8419 (Rec: 06/26/19 02:24 MUN5103 ICU-C25) Document 06/26/19 03:00 JRM0281 (Rec: 06/26/19 03:21 WON0678 ICU-C25) Document 06/26/19 04:00 TBC8611 (Rec: 06/26/19 04:13 JIA5039 ICU-C25) Document 06/26/19 05:00 DHV4782 (Rec: 06/26/19 05:01 TBS3206 ICU-C25) Document 06/26/19 06:00 WQI7316 (Rec: 06/26/19 06:05 LDA8187 ICU-C25) Document 06/26/19 07:00 ELV3622 (Rec: 06/26/19 07:58 JWN0763 ICU-C15) Document 06/26/19 07:58 BKX0869 (Rec: 06/26/19 07:58 ZPO7049 ICU-C15) Document 06/26/19 09:00 SKM5077 (Rec: 06/26/19 09:41 KSE1980 ICU-C15) Document 06/26/19 10:00 UUL2667 (Rec: 06/26/19 11:07 FEQ1811 ICU-C15) Document 06/26/19 11:00 FZK8572 (Rec: 06/26/19 11:07 NCU9206 ICU-C15) Document 06/26/19 12:00 QKG1430 (Rec: 06/26/19 12:14 RLG0037 ICU-C15) Document 06/26/19 13:00 QEX9362 (Rec: 06/26/19 13:22 WNC3285 ICU-C15) Document 06/26/19 14:00 ESK8902 (Rec: 06/26/19 17:56 TAS7199 ICU-L03) Document 06/26/19 15:00 PXN3119 (Rec: 06/26/19 17:57 NQQ7324 ICU-L03) Document 06/26/19 16:00 WZP2554 (Rec: 06/26/19 17:57 EMC0863 ICU-L03) Document 06/26/19 17:00 KZU2526 (Rec: 06/26/19 17:57 DMR4506 ICU-L03) Document 06/26/19 17:57 NJA8175 (Rec: 06/26/19 17:57 CPI0365 ICU-L03) Document 06/26/19 19:00 BPV6468 (Rec: 06/26/19 19:08 PPZ2006 ISDEMO-M03 ) Document 06/26/19 20:00 EDJ9479 (Rec: 06/26/19 20:05 BJI1562 ICU-C15) Document 06/26/19 21:00 DFT7471 (Rec: 06/26/19 22:09 XZU3542 ISDEMO-M03 ) Document 06/26/19 22:00 FLR8808 (Rec: 06/26/19 22:09 OST9299 ISDEMO-M03 ) Document 06/26/19 23:00 PWY1106 (Rec: 06/26/19 23:20 GST1878 ICU-C15) Document 06/26/19 23:59 VPN0908 (Rec: 06/26/19 23:59 UZZ5525 ICU-C15) Document 06/27/19 01:00 IAE4763 (Rec: 06/27/19 01:08 UBI9501 ICU-C15) Document 06/27/19 02:00 IBA0003 (Rec: 06/27/19 02:03 QPO9436 ICU-C15) Document 06/27/19 03:00 ALV9912 (Rec: 06/27/19 05:10 KCI1242 ICU-C15) Document 06/27/19 04:00 WKW4687 (Rec: 06/27/19 05:10 AZR3670 ICU-C15) Document 06/27/19 06:00 QDL2252 (Rec: 06/27/19 06:02 LGH1250 ICU-C15) Document 06/27/19 08:00 PUN0207 (Rec: 06/27/19 08:07 EQA1676 ICU-C15) Document 06/27/19 09:31 UFM0362 (Rec: 06/27/19 09:31 SFC4270 ICU-C15) Document 06/27/19 11:00 MKV9294 (Rec: 06/27/19 11:10 RHQ6111 ICU-C15) Document 06/27/19 13:45 GTT3520 (Rec: 06/27/19 13:56 HZA0129 ICU-C15) Document 07/02/19 07:36 BUV9207 (Rec: 07/02/19 07:36 VIT1913 TELE-M20) Document 07/02/19 14:00 VAI8610 (Rec: 07/02/19 14:47 SMA0547 TELE-C05) Document 07/02/19 15:34 HVH3347 (Rec: 07/02/19 15:34 KMU9379 TELE-M20) Document 07/02/19 21:53 EKF9639 (Rec: 07/02/19 21:53 VDM9332 TELE-M21) Document 07/03/19 06:00 NSX8967 (Rec: 07/03/19 07:27 TEY2333 TELE-C10) Document 07/03/19 14:00 LRC8616 (Rec: 07/03/19 14:58 QBI0939 TELE-C01) Document 07/03/19 21:47 XXO4770 (Rec: 07/03/19 21:47 MZP0330 TELE-C08) Document 07/04/19 03:30 SXS5995 (Rec: 07/04/19 07:00 EBH2649 MED-M16) Document 07/04/19 06:00 IAE9185 (Rec: 07/04/19 06:04 BBG4853 TELE-C08) Document 07/04/19 13:35 WIS9159 (Rec: 07/04/19 13:36 QIY9385 TELE-M07) Document 07/04/19 21:32 LMK2150 (Rec: 07/04/19 21:37 OEM9742 TELE-M07) Document 07/05/19 06:00 PMY4745 (Rec: 07/05/19 07:03 UGC5580 TELE-C10) Document 07/05/19 14:00 ISX0041 (Rec: 07/05/19 14:30 EEB8644 TELE-C11) Document 07/05/19 22:00 TSN9788 (Rec: 07/05/19 23:26 VZE0108 TELE-C33) Document 07/06/19 05:48 BRC2041 (Rec: 07/06/19 05:49 HSU0468 TELE-M13) Document 07/06/19 14:00 SPC7066 (Rec: 07/06/19 14:43 ASJ0247 TELE-C03) Document 07/06/19 22:00 GCE6601 (Rec: 07/06/19 22:05 LKR5846 TELE-C09) Document 07/07/19 03:57 TYO1921 (Rec: 07/07/19 03:57 NYF9416 TELE-C13) Document 07/07/19 05:37 [id number] (Rec: 07/07/19 05:37 [id number] TELE-C13) Document 07/07/19 22:00 [id number] (Rec: 07/07/19 22:42 [id number] TELE-C11) Document 07/08/19 06:00 [id number] (Rec: 07/08/19 07:55 [id number] TELE-C11) Document 07/08/19 13:51 [id number] (Rec: 07/08/19 13:51 [id number] TELE-C10) Document 07/08/19 22:00 [id number] (Rec: 07/08/19 22:40 [id number] TELE-C10) Document 07/09/19 06:00 [id number] (Rec: 07/09/19 06:09 [id number] TELE-C10) Document 07/09/19 13:14 [id number] (Rec: 07/09/19 13:15 [id number] TELE-C11) Document 07/09/19 18:00 [id number] (Rec: 07/09/19 18:23 [id number] TELE-C05) Document 07/09/19 22:00 [id number] (Rec: 07/10/19 06:25 [id number] MED-C11) Document 07/10/19 06:00 [id number] (Rec: 07/10/19 06:27 [id number] MED-C11) Document 07/10/19 13:34 [id number] (Rec: 07/10/19 13:34 [id number] MED-C09) Document 07/10/19 22:00 [id number] (Rec: 07/11/19 04:55 [id number] MED-C11) Document 07/11/19 04:56 [id number] (Rec: 07/11/19 04:56 [id number] MED-C11) Document 07/11/19 14:00 [id number] (Rec: 07/11/19 16:21 [id number] MED-C11) Document 07/11/19 18:38 [id number] (Rec: 07/11/19 18:39 [id number] MED-C11) Document 07/11/19 22:00 [id number] (Rec: 07/11/19 22:55 [id number] MED-C09) Document 07/12/19 05:35 [id number] (Rec: 07/12/19 05:35 [id number] MED-C09) Document 07/12/19 14:00 [id number] (Rec: 07/12/19 14:16 [id number] MED-C05) Document 07/12/19 22:00 [id number] (Rec: 07/12/19 22:07 [id number] MED-C13) Document 07/13/19 06:00 [id number] (Rec: 07/13/19 06:17 [id number] MED-C05) - Physical Exam General Physical Exam Comment: She appears to be awake, alert, attentive and purposive for the first time in days. However, she is aphasic - she doesn't follow commands ("close your eyes", squeeze my fingers"). She is moving all limbs spontaneously. She has no facial assymetry. General: No Cyanosis, No Anemia, No Jaundice, No Clubbing Eye Exam: bilateral: EOMI Skin: Normal: Rash Lungs and Chest: Yes: Chest Expansion Full, Chest Expansion Symetrica, Percussion Note Resonant. No: Vessicular Breath Sounds, Crackles, Wheezes, Respiratory Distress, Use of Accessory Muscles Heart Rate and Rhythm: Regular Additional Cardiovascular: Yes: Normal Heart Sounds, Heart Murmur. No: Pedal Edema Abdominal Exam: Yes: Soft, Bowel Sounds Present. No: Distention Results - Results Lab Results: Laboratory Results - last 24 hr 07/12/19 07/12/19 07/12/19 09:01 12:15 12:15 ABG pH ABG pCO2 ABG pO2 ABG HCO3 ABG O2 Saturation ABG Base Excess Sodium 141 Potassium 5.1 H Chloride 117 H Carbon Dioxide 18 L Anion Gap 6 BUN 81 H Creatinine 1.28 H Est GFR ( Amer) 48.7 Est GFR (Non-Af Amer) 40.2 BUN/Creatinine Ratio 63.3 H Glucose 145 H POC Glucose (mg/dL) Lactic Acid 1.5 Calcium 9.4 Phosphorus 3.3 Magnesium 2.4 Total Bilirubin 5.40 H AST 45 H ALT 64 H Alkaline Phosphatase 105 H Ammonia Troponin I 0.07 H* C-Reactive Protein Total Protein 5.9 L Albumin 3.1 L Globulin 2.8 Albumin/Globulin Ratio 1.1 Prealbumin 25 Triglycerides 156 Cholesterol 133 07/12/19 07/12/19 07/12/19 12:15 12:28 13:54 ABG pH 7.30 L ABG pCO2 28 L ABG pO2 65 L ABG HCO3 16.1 L ABG O2 Saturation 91.7 L ABG Base Excess -11.1 L Sodium Potassium Chloride Carbon Dioxide Anion Gap BUN Creatinine Est GFR ( Amer) Est GFR (Non-Af Amer) BUN/Creatinine Ratio Glucose POC Glucose (mg/dL) 133 H Lactic Acid Calcium Phosphorus Magnesium Total Bilirubin AST ALT Alkaline Phosphatase Ammonia 34 Troponin I C-Reactive Protein Total Protein Albumin Globulin Albumin/Globulin Ratio Prealbumin Triglycerides Cholesterol 07/12/19 07/13/19 19:47 05:25 ABG pH ABG pCO2 ABG pO2 ABG HCO3 ABG O2 Saturation ABG Base Excess Sodium Potassium Chloride Carbon Dioxide Anion Gap BUN Creatinine Est GFR ( Amer) Est GFR (Non-Af Amer) BUN/Creatinine Ratio Glucose POC Glucose (mg/dL) 134 H Lactic Acid Calcium Phosphorus Magnesium Total Bilirubin AST ALT Alkaline Phosphatase Ammonia Troponin I C-Reactive Protein 26.14 H Total Protein Albumin Globulin Albumin/Globulin Ratio Prealbumin Triglycerides Cholesterol Radiology Results: Patient Name: ELHAM CHOPRA Medical Record#: [id number] Ordering Physician: Maura Pickard DO Acct.#: [id number] : 1940 Age: 79 Sex: F Location: [address] [place] [address] Exam Date: 07/12/19 1336 ADM Status: ADM IN Order Information: CHEST AP OR PORT Accession Number: [id number] CPT: 69021 Indication: Acute respiratory failure. Evaluate for pulmonary edema. Comparison: July 07, 2019 Technique: Upright AP 1351 hours Report: Tip of RIGHT upper extremity PICC at the RIGHT atrium. Elevated lung volumes and both mild prominence of the interstitial markings and patchy rarefaction of interstitial markings. Significant interval resolution of interstitial and alveolar opacities compared with the July 07, 2019 exam with residual pulmonary opacities most prominent at the upper lung zones. Negative for pleural effusion or pneumothorax. Cardiomegaly. Unremarkable central pulmonary vasculature and mediastinal contours. IMPRESSION: #. Significant interval partial resolution of pulmonary consolidation and probable alveolar and interstitial edema compared with the July 07, 2019 exam. <Electronically signed by Stef Long MD in OV> 07/12/19 1511 Dictated By: Stef Long MD Dictated Date/Time: 07/12/19 1511 Transcribed Date/Time: 07/12/19 1508 Copy to: Assessment - Problem List Assessment: Patient Problems Altered mental state (Acute) Aphasia (Acute) CHF, acute (Acute) Lower respiratory tract infection (Acute) On total parenteral nutrition (Acute) Respiratory distress (Acute) Steroid-induced diabetes (Acute) Volume overload (Acute) Alcohol dependence (Chronic) Anemia (Chronic) Anticoagulated (Chronic) Atrial fibrillation (Chronic) Bronchiectasis (Chronic) COPD (chronic obstructive pulmonary disease) (Chronic) Coronary artery disease (Chronic) DVT prophylaxis (Chronic) 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 Pickard thought she was actively dying last night. I told Kevin Chopra she might be dying and we could change her to comfort care if he preferred. He declined and wanted acute medical care, but not intensive care. This respiratory failure was likely secondary to pulmonary edema from volume overload. I cut her TPN overnight and gave her IV furosemide. This morning this seems improved. Her CXR shows resolution of her ARDS and no new pneumonia Altered mental state (Acute) She is awake, alert and shows purposive movements for the first time in many days. Aphasia (Acute) She appears to have global aphasia - she attends, but is using other cues (visual) to understand her environment. She cant produce speech spontaneously and is unable to follow single step commands. Possibilities: * New CVA * She is recovering from her encephalopathy and we are revealing her previous CVA (she had an expressive dysphasia from a previous stroke). I will ask speech therapy to evaluate and also to test her swallowing mechanism as she would do better stopping TPN On total parenteral nutrition (Acute) I will reintroduce at a lower rate. 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 I explained she remains critically ill, but that she is no longer encephalopathic (or less encephalopathic). I told him she is aphasic, and explained the above possibilities. I note she has no accompanying right hemiparesis.
[2019-07-13] MEDS: Furosemide IV* 10 MG/ML 2 ML VIAL (20 MG) IV SCH ×2 (07:50→07:53)
[2019-07-13] MEDS: Famotidine IV* 10 MG/ML 2 ML (20 mg) IV SLOW PU SCH (07:50)
[2019-07-13] MEDS: Spironolactone TAB* 25 MG PO SCH (07:50)
[2019-07-13] MEDS: methylPREDNISolone SOD 40 MG* 1 ML VIAL IV SCH (07:50)
[2019-07-13] MEDS: lamoTRIgine TAB(*) 100 MG PO SCH ×2 (07:51→19:59)
[2019-07-13] MEDS: Enoxaparin(*) 30 MG/0.3 ML SYR SUBCUT SCH (07:51)
[2019-07-13] MEDS: Acetaminophen TAB* 325 MG PO PRN (07:51)
[2019-07-13] MEDS: Ramipril CAP* 5 MG PO SCH (07:51)
[2019-07-13 08:08] LABS: Albumin 3.2 g/dL (3.2-5.2); Albumin/Globulin Ratio 1.1 (1-3); BUN/Creatinine Ratio 57.5 (8-20); Calcium 8.7 mg/dL (8.6-10.3); EGFR African American 41.8 (>60); EGFR Non-African American 34.6 (>60); Globulin 2.8 g/dL (2-4); Magnesium 2.3 mg/dL (1.9-2.7); Phosphorus 4.9 mg/dL (2.5-5.0); Potassium 3.9 mmol/L (3.5-5.0); Total Bilirubin 6.7 mg/dL (0.2-1.0)
[2019-07-13 10:54] LABS: Albumin 3.2 g/dL (3.2-5.2); Albumin/Globulin Ratio 1.1 (1-3); BUN/Creatinine Ratio 52.8 (8-20); Calcium 8.7 mg/dL (8.6-10.3); EGFR African American 37.4 (>60); EGFR Non-African American 30.9 (>60); Magnesium 2.3 mg/dL (1.9-2.7); Phosphorus 5.4 mg/dL (2.5-5.0); Total Bilirubin 7.3 mg/dL (0.2-1.0); Total Protein 6.2 g/dL (6.4-8.9)
[2019-07-13] MEDS: Insulin GLARGINE(*) 1 UNITS UNIT SUBCUT SCH (11:53)
[2019-07-13] MEDS: ORALSYR PO SCH (16:53)
[2019-07-13] MEDS: DIGOXIN PO SCH (16:53)
[2019-07-13] MEDS: Atorvastatin* 40 MG TAB PO SCH (16:53)
[2019-07-13] MEDS: TPN* 24 HR with Dextrose 50% Water* 500 ML, Amino Acid Infusion 10%* 850 ML, Sterile Wa... CENTR SCH ×12 (17:51)
[2019-07-14] MEDS: levETIRAcetam IV* 250 MG in NS 0.9% 100 ML* 100 ML IVPB SCH ×3 (00:14→22:41)
[2019-07-14] MEDS: Famotidine IV* 10 MG/ML 2 ML (20 mg) IV SLOW PU SCH ×3 (00:14→22:47)
[2019-07-14] MEDS: Furosemide IV* 10 MG/ML 2 ML VIAL (20 MG) IV SCH ×3 (00:14→22:47)
[2019-07-14] MEDS: ZOSYN 3.375 GM Q8H per EXTENDED INFUSION IVPB SCH ×6 (00:27→17:48)
[2019-07-14] MEDS: Morphine INJ* 2 MG/ML 1 ML SYRINGE (TWO MG - NEW SYRINGE VERSION) IV PRN ×5 (00:27→22:46)
[2019-07-14] MEDS: Insulin LISPRO* 1 UNITS UNIT SUBCUT SCH ×5 (00:41→23:14)
[2019-07-14] MEDS: Metoprolol Tartrate IV* 1 MG/ML 5 ML VIAL IV SCH ×5 (04:08→23:09)
[2019-07-14 06:33] LABS: C Reactive Protein 58.07 mg/L (<8.01)
--- NOTE | 2019-07-14 08:55 | PN ---
Subjective - Subjective Reason for Note: Progress Note History: She is not awake this morning. Active Problems: Active Problems Altered mental state (Acute) R41.82 Pt is even more confused and agitated today compared to yesterday at my visit. Cause of her confusion is not clear. There is no evidence of infection. CT brain negative for any acute findings. ? hospital acquired delirium in the setting of a person who at baseline is mild to moderately confused (per [facility] staff) vs related to EtOH withdrawl (seems unlikely as pt has no other signs of withdrawl) vs non convulsive status (also unlikely given how verbal and active she has been). I trialed seroquel 25mg last night and reportedly she had an ok night. Given the screaming and marked agitation at this time will give haldol 2mg IV x1 now to see if she will settle and be more appropriate with her care. Aphasia (Acute) R47.01 CHF, acute (Acute) I50.9 Pt was felt to have acute diastolic CHF/flash pulmonary edema on presenation. She required BiPAP for acute hypoxic resp failure. This is now resolved. She is now on RA. Resume lasix and spironolactone- I doubt she will take her meds at this time. Lower respiratory tract infection (Acute) J22 On total parenteral nutrition (Acute) Z78.9 Respiratory distress (Acute) R06.03 Steroid-induced diabetes (Acute) Volume overload (Acute) E87.70 Alcohol dependence (Chronic) F10.20 As pt is unable to tell me anything useful, it is unclear if she is still drinking. She does not appear to be withdrawling from EtOH. Anemia (Chronic) D64.9 Anticoagulated (Chronic) Z79.01 Atrial fibrillation (Chronic) I48.91 Pt is in afib but controlled rate. Continue coreg and digoxin and coumadin. Recheck INR tomorrow. Pt refused labs this AM. Bronchiectasis (Chronic) J47.9 COPD (chronic obstructive pulmonary disease) (Chronic) J44.9 No signs of exacerbation. Stop solumedrol. Monitor respiratory status. 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 Continue keppra and lamotrigine. Keppra level sent last night just prior to her receiving her evening dose. Current Medications: Current Medications Acetaminophen (Tylenol Tab*) 650 mg PO Q4H PRN PRN Reason: FEVER/PAIN Last Admin: 07/13/19 07:51 Dose: 650 mg Atorvastatin Calcium (Lipitor*) 40 mg PO 1700 [facility] Last Admin: 07/13/19 16:53 Dose: Not Given Dextrose (D50w Syringe 50 Ml*) 12.5 gm IV PUSH .FOR FS < 60 - SS PRN PRN Reason: FS < 60 Digoxin (Lanoxin Liq* Oralsyr) 0.125 mg PO 1700 [facility] Last Admin: 07/13/19 16:53 Dose: Not Given Enoxaparin Sodium (Lovenox(*)) 30 mg SUBCUT Q24H [facility] Last Admin: 07/13/19 07:51 Dose: 30 mg Famotidine (Pepcid Iv*) 20 mg IV SLOW PU BID [facility] Last Admin: 07/14/19 00:14 Dose: 20 mg Furosemide (Lasix Iv*) 20 mg IV BID [facility] Last Admin: 07/14/19 00:14 Dose: 20 mg Haloperidol Lactate (Haldol Inj Iv/Im*) 2.5 mg IV SLOW PU Q8H PRN PRN Reason: AGITATION Last Admin: 07/13/19 02:44 Dose: 2.5 mg Heparin Sodium (Porcine) (Heparin Flush Picc/Ml/Cvc(*)) 0 ml FLUSH 0600,1800 [facility] Last Admin: 07/14/19 05:19 Dose: Not Given Hydralazine HCl (Apresoline Iv*) 5 mg IV SLOW PU Q4H PRN PRN Reason: SBP > 160 Last Admin: 06/28/19 19:46 Dose: 5 mg Piperacillin Sod/Tazobactam (Sod 3.375 gm/ Sodium Chloride) 100 mls @ 25 mls/ hr IVPB Q8H [facility] Last Admin: 07/14/19 05:52 Dose: 25 mls/hr Levetiracetam 250 mg/ Sodium (Chloride) 102.5 mls @ 410 mls/hr IVPB Q12H [facility] Last Admin: 07/14/19 00:14 Dose: 410 mls/hr Dextrose 500 ml/ Amino Acids 850 ml/ Sterile Water 150 ml/Fat Emulsion Intravenous 250 ml/ Sodium Chloride 25 meq/Potassium Chloride 80 meq/Potassium Phosphate 15 mmole/Calcium Gluconate 15 meq/Magnesium Sulfate 10 meq/ Multivitamins 10 ml/ Trace Metals 1 ml/ Nutrition ( Parenteral) 1,846.971 mls @ 38.479 mls/hr CENTR 1700 [facility]; Protocol Last Admin: 07/13/19 17:51 Dose: 38.479 mls/hr Insulin Glargine (Lantus(*)) 18 units SUBCUT Q24H [facility] Last Admin: 07/13/19 11:53 Dose: Not Given Insulin Human Lispro (Humalog*) 0 - 6 units SUBCUT Q6HR [facility]; Protocol Last Admin: 07/14/19 06:08 Dose: Not Given Lamotrigine (Lamictal Tab(*)) 50 mg PO BID [facility] Last Admin: 07/13/19 19:59 Dose: Not Given Levalbuterol HCl (Xopenex 0.63mg/3ml Neb*) 0.31 mg INH Q6H PRN PRN Reason: SOB/WHEEZING Last Admin: 06/25/19 21:39 Dose: 0.63 mg Methylprednisolone Sodium Succinate (Solu-Medrol 40 Mg) 5 mg IV DAILY [facility] Last Admin: 07/13/19 07:50 Dose: 5 mg Metoprolol Tartrate (Lopressor Iv*) 2.5 mg IV Q6H [facility] Last Admin: 07/14/19 04:08 Dose: 2.5 mg Miscellaneous (Ativan Pyxis Prado) 1 ea N/A .PYXIS PRADO PRN PRN Reason: PER PROTOCOL Morphine Sulfate (Morphine Inj (Syringe))*) 1 mg IV Q2H PRN PRN Reason: .PAIN Last Admin: 07/14/19 00:27 Dose: 1 mg Ramipril (Altace Cap*) 5 mg PO DAILY [facility] Last Admin: 07/13/19 07:51 Dose: 5 mg Spironolactone (Aldactone Tab*) 12.5 mg PO DAILY [facility] Last Admin: 07/13/19 07:50 Dose: 12.5 mg Home Medications: Home Medications Medication Instructions Recorded Confirmed Type Digoxin TAB* [Lanoxin TAB*] 0.125 mg PO DAILY 11/14/17 06/23/19 History levETIRAcetam TAB* [Keppra TAB*] 750 mg PO BID tab 11/16/17 06/23/19 Rx Atorvastatin* [Lipitor 20 MG*] 20 mg PO BEDTIME 12/01/18 06/23/19 History lamoTRIgine TAB(*) [Lamictal 100 mg PO BID 12/01/18 06/23/19 History TAB(*)] Carvedilol TAB* [Coreg TAB*] 3.125 mg PO BID #60 tab 06/19/19 06/23/19 Rx Furosemide TAB* [Lasix TAB*] 20 mg PO 0800 5 Days #30 tab 06/19/19 06/23/19 Rx Levalbuterol 0.63MG/3ML NEB* 0.31 mg INH Q6H PRN #30 neb.soln 06/19/19 06/23/19 Rx [Xopenex 0.63MG/3ML NEB*] Spironolactone TAB* [Aldactone TAB 12.5 mg PO DAILY #30 tab 06/19/19 06/23/19 Rx 25 MG*] predniSONE TAB* [Deltasone 20 MG 5 mg PO DAILY #10 tab 06/19/19 06/23/19 Rx TAB*] Cephalexin 500 mg PO QID 06/23/19 06/23/19 History Warfarin TAB(*) [Coumadin TAB(*)] 0.5 mg PO DAILY@1700 06/23/19 06/23/19 History Allergies: Allergies Allergy/AdvReac Type Severity Reaction Status Date / Time No Known Allergies Allergy Verified 06/23/19 04:24 Objective - Vital Signs Vital Signs: Vital Signs 07/13/19 07/13/19 07/13/19 11:54 12:33 13:48 Temperature 97.8 F Pulse Rate 84 Respiratory 20 17 20 Rate Blood Pressure 130/38 (mmHg) O2 Sat by Pulse 100 Oximetry 07/13/19 07/13/19 07/13/19 16:00 16:20 19:20 Temperature 97.2 F 97.6 F Pulse Rate 93 83 Respiratory 18 20 Rate Blood Pressure 113/69 92/63 92/56 (mmHg) O2 Sat by Pulse 93 100 Oximetry 07/13/19 07/13/19 07/13/19 20:00 20:02 20:06 Temperature Pulse Rate Respiratory 24 24 24 Rate Blood Pressure (mmHg) O2 Sat by Pulse Oximetry 07/13/19 07/13/19 07/14/19 22:10 23:25 00:27 Temperature 97.6 F Pulse Rate 110 Respiratory 20 21 24 Rate Blood Pressure 107/83 (mmHg) O2 Sat by Pulse 99 Oximetry 07/14/19 07/14/19 02:11 03:05 Temperature 97.3 F Pulse Rate 112 Respiratory 18 22 Rate Blood Pressure 116/67 (mmHg) O2 Sat by Pulse 97 Oximetry - Intake and Output Intake and Output: Intake & Output 07/11/19 07/12/19 07/13/19 07/14/19 11:59 11:59 11:59 11:59 Intake Total 6195 4461 3686 3616 Output Total 900 2950 2500 725 Balance 5295 1511 1186 2891 Weight 97 lb 114 lb 11.2 oz 112 lb 9.6 oz Intake: IV Fluids 247 2100 40 3050 ABX - ZOSYN 165 100 20 Keppra 61 20 NS (0.9%) 21 2000 3050 IVPB 266 200 300 106 ABX - ZOSYN 266 100 200 Keppra 100 100 106 TPN/PPN 5682 2161 3286 Oral 0 0 60 460 Output: Joya 900 2950 2500 725 Other: Estimated Void Large Date of Last Bowel unknown Movement # Bowel Movements 0 0 0 # Voids 1 ADLs: Meal Record Start: 06/23/19 11: 08 Freq: 09,13,18 Status: Complete Protocol: Created 06/23/19 11:08 System (Rec: 06/23/19 11:08 System [facility]-C05) ADLs: Meal Record Start: 06/23/19 15: 24 Freq: DAILY@0900,1400,1800 Status: Active Protocol: Created 06/23/19 15:24 GHF2771 (Rec: 06/23/19 15:24 VCL7183 ICU-C25) Document 06/23/19 18:00 WJG0660 (Rec: 06/23/19 20:33 YKA0621 TELE-C07) Document 06/24/19 09:00 WUZ9077 (Rec: 06/24/19 10:22 VGA1731 TELE-C03) Document 06/24/19 18:00 EMD7676 (Rec: 06/24/19 18:15 VMB0815 TELE-C07) Document 06/25/19 08:58 OEB3898 (Rec: 06/25/19 08:59 VRI6045 TELE-M11) Document 06/25/19 13:57 ZKZ4394 (Rec: 06/25/19 13:59 KJQ8840 TELE-M11) Document 06/25/19 18:00 QZF5091 (Rec: 06/25/19 22:40 KPS8347 TELE-C05) Document 06/26/19 10:00 HGE6816 (Rec: 06/26/19 11:06 ETC8552 ICU-C15) Document 06/26/19 18:00 MGU8292 (Rec: 06/26/19 18:05 TCH8231 ICU-L03) Document 06/28/19 11:23 OXW6553 (Rec: 06/28/19 11:23 RBA8149 TELE-M21) Document 06/28/19 13:25 WEE7917 (Rec: 06/28/19 13:25 AGK7260 TELE-M21) Document 06/28/19 21:48 MXX8974 (Rec: 06/28/19 21:48 ODS2681 TELE-C11) Document 06/29/19 04:22 RET8995 (Rec: 06/29/19 04:23 RMZ1361 TELE-M21) Document 06/29/19 05:29 DCV8846 (Rec: 06/29/19 05:29 MIO2892 TELE-M21) Document 06/30/19 18:13 ITH2907 (Rec: 06/30/19 18:13 OTZ7865 TELE-M21) Document 07/01/19 09:50 GXP8895 (Rec: 07/01/19 09:50 PRX4390 TELE-M21) Document 07/01/19 13:21 HHD0644 (Rec: 07/01/19 13:21 PDC5010 TELE-M21) Document 07/01/19 19:39 FDG5582 (Rec: 07/01/19 19:39 RXI1247 TELE-M21) Document 07/02/19 14:00 OBB9996 (Rec: 07/02/19 14:47 ZZH0236 TELE-C05) Document 07/02/19 18:00 YIH3575 (Rec: 07/02/19 18:28 BPQ7821 TELE-M21) Document 07/03/19 09:00 QAN4754 (Rec: 07/03/19 10:47 NGZ3715 TELE-C01) Document 07/03/19 12:58 HPF2817 (Rec: 07/03/19 12:58 NTF9480 TELE-C01) Document 07/03/19 18:00 ZQZ3506 (Rec: 07/03/19 20:00 OFD0315 TELE-C08) Document 07/04/19 09:00 GHN5690 (Rec: 07/04/19 09:37 MYI8012 TELE-M07) Document 07/04/19 12:44 GGA2251 (Rec: 07/04/19 12:44 PRK8385 TELE-M07) Document 07/04/19 18:00 CEN6471 (Rec: 07/04/19 18:07 NXP5262 TELE-M07) Document 07/05/19 09:00 MTN5212 (Rec: 07/05/19 14:02 OPE5326 TELE-C11) Document 07/05/19 14:00 ANZ0088 (Rec: 07/05/19 14:04 ABG0620 TELE-C11) Document 07/05/19 18:00 KQD0582 (Rec: 07/05/19 18:21 LXR3880 TELE-M15) Document 07/06/19 09:00 VKM6347 (Rec: 07/06/19 12:05 OVR9205 TELE-C08) Document 07/06/19 14:00 MVW5489 (Rec: 07/06/19 14:43 IHC9113 TELE-C03) Document 07/06/19 18:00 TIB3807 (Rec: 07/06/19 22:02 IHI7649 TELE-C09) Document 07/07/19 18:00 PJZ6853 (Rec: 07/07/19 20:04 RJE9826 TELE-C11) Document 07/08/19 09:00 EKM2768 (Rec: 07/08/19 09:54 RHY4917 TELE-C10) Document 07/08/19 13:50 TQE4972 (Rec: 07/08/19 13:51 YBD0740 TELE-C10) Document 07/08/19 18:00 CEA0507 (Rec: 07/08/19 20:09 WXZ3596 TELE-C10) Document 07/09/19 08:42 MIS7467 (Rec: 07/09/19 08:43 GRP3599 TELE-C11) Document 07/09/19 13:14 JEH2287 (Rec: 07/09/19 13:14 MFC5998 TELE-C11) Document 07/09/19 18:00 LQY6067 (Rec: 07/09/19 21:14 MVW6437 MED-C09) Document 07/10/19 08:58 RXQ6309 (Rec: 07/10/19 08:58 LUT7095 MED-C09) Document 07/10/19 13:34 XIM2000 (Rec: 07/10/19 13:34 IDX9027 MED-C09) Document 07/10/19 17:46 IHA9744 (Rec: 07/10/19 17:47 BRQ0564 MED-C13) Document 07/11/19 09:00 MMD1579 (Rec: 07/11/19 11:21 XFH0339 MED-C11) Document 07/11/19 14:00 UDF8689 (Rec: 07/11/19 14:18 HCX3740 MED-C13) Document 07/11/19 18:00 NME4325 (Rec: 07/11/19 18:23 PTF0065 MED-C13) Document 07/12/19 09:00 EDW3098 (Rec: 07/12/19 09:17 LOO9704 MED-C05) Document 07/12/19 14:00 PSJ2346 (Rec: 07/12/19 14:16 UAF7281 MED-C05) Document 07/12/19 18:00 WAP2596 (Rec: 07/12/19 22:01 PYI3678 MED-C02) Document 07/13/19 09:00 UVB7127 (Rec: 07/13/19 12:17 ZVT9029 MED-C09) Document 07/13/19 14:00 ZYG1593 (Rec: 07/13/19 14:30 WXG2252 MED-C09) Document 07/13/19 17:57 DCC3564 (Rec: 07/13/19 17:58 SSG4355 MED-C11) Document 07/14/19 08:30 KZP3536 (Rec: 07/14/19 08:31 MARCH6 MED-C16) ADLs: Meal Record Start: 06/25/19 22: 26 Freq: Status: Complete Protocol: Created 06/25/19 22:26 GJC4924 (Rec: 06/25/19 22:26 UET2854 ICU-C25) ADLs: Meal Record Start: 06/28/19 12: 17 Freq: Status: Cancelled Protocol: Created 06/28/19 12:17 OZY3060 (Rec: 06/28/19 12:17 KER8797 TELE-M21) Intake and Output Start: 06/23/19 04: 23 Freq: Status: Inactive Protocol: Created 06/23/19 04:23 System (Rec: 06/23/19 04:23 System EDRM-C10) Intake and Output Start: 06/23/19 11: 08 Freq: Q1HR Status: Inactive Protocol: Created 06/23/19 11:08 System (Rec: 06/23/19 11:08 System PMRU-C05) Document 06/23/19 14:59 KSC6319 (Rec: 06/23/19 15:00 FRQ0705 ICU-C25) Intake and Output Start: 06/23/19 15: 24 Freq: DAILY@0600,1400,2200 Status: Inactive Protocol: Document 06/23/19 12:00 ZJX8482 (Rec: 06/23/19 15:26 UVQ6461 ICU-C25) Created 06/23/19 15:24 OOU8348 (Rec: 06/23/19 15:24 GJF4325 ICU-C25) Document 06/23/19 21:29 LBA8954 (Rec: 06/23/19 21:30 PFC5357 TELE-C07) Document 06/24/19 06:00 DCE5053 (Rec: 06/24/19 06:06 XIG5775 TELE-C09) Document 06/24/19 22:00 JQL8336 (Rec: 06/24/19 22:36 LJD7315 TELE-C07) Document 06/25/19 05:51 VHB2546 (Rec: 06/25/19 05:52 MNL7490 TELE-C07) Document 06/25/19 12:11 ISW3529 (Rec: 06/25/19 12:12 GMY1365 TELE-M11) Intake and Output Start: 06/25/19 22: 26 Freq: 06,14,2200 Status: Active Protocol: Created 06/25/19 22:26 MRA5590 (Rec: 06/25/19 22:26 UPM1359 ICU-C25) Document 06/25/19 23:00 NFU7353 (Rec: 06/25/19 23:05 OPI3473 ICU-C25) Document 06/25/19 23:28 COS8258 (Rec: 06/25/19 23:30 JBO5438 ICU-C16) Document 06/25/19 23:47 CBF6863 (Rec: 06/25/19 23:47 TJQ4371 ICU-C25) Document 06/26/19 01:00 LAB4442 (Rec: 06/26/19 02:24 JIH9810 ICU-C25) Document 06/26/19 02:00 POZ7420 (Rec: 06/26/19 02:24 OSU9823 ICU-C25) Document 06/26/19 03:00 FKP1862 (Rec: 06/26/19 03:21 VEF5263 ICU-C25) Document 06/26/19 04:00 AVW0882 (Rec: 06/26/19 04:13 VCL0368 ICU-C25) Document 06/26/19 05:00 UOR8626 (Rec: 06/26/19 05:01 QYI2611 ICU-C25) Document 06/26/19 06:00 TOW5637 (Rec: 06/26/19 06:05 KFV2176 ICU-C25) Document 06/26/19 07:00 CGP0422 (Rec: 06/26/19 07:58 IVE9619 ICU-C15) Document 06/26/19 07:58 GXY8065 (Rec: 06/26/19 07:58 FCS1256 ICU-C15) Document 06/26/19 09:00 FJG5166 (Rec: 06/26/19 09:41 JSC0898 ICU-C15) Document 06/26/19 10:00 YCY5575 (Rec: 06/26/19 11:07 KDH7454 ICU-C15) Document 06/26/19 11:00 NYD5771 (Rec: 06/26/19 11:07 EWR8094 ICU-C15) Document 06/26/19 12:00 GVQ8862 (Rec: 06/26/19 12:14 JSM8794 ICU-C15) Document 06/26/19 13:00 XTI7952 (Rec: 06/26/19 13:22 BPW4270 ICU-C15) Document 06/26/19 14:00 YLC1989 (Rec: 06/26/19 17:56 BBB8006 ICU-L03) Document 06/26/19 15:00 ALU5110 (Rec: 06/26/19 17:57 WVZ6237 ICU-L03) Document 06/26/19 16:00 DPT8627 (Rec: 06/26/19 17:57 HHI8877 ICU-L03) Document 06/26/19 17:00 YNR9787 (Rec: 06/26/19 17:57 MLT1059 ICU-L03) Document 06/26/19 17:57 BIX2161 (Rec: 06/26/19 17:57 AWZ0049 ICU-L03) Document 06/26/19 19:00 WCO0910 (Rec: 06/26/19 19:08 GBS1583 ISDEMO-M03 ) Document 06/26/19 20:00 XKS3284 (Rec: 06/26/19 20:05 SAD7488 ICU-C15) Document 06/26/19 21:00 OZJ7091 (Rec: 06/26/19 22:09 ATL3381 ISDEMO-M03 ) Document 06/26/19 22:00 URX3247 (Rec: 06/26/19 22:09 OOH2245 ISDEMO-M03 ) Document 06/26/19 23:00 SBX9489 (Rec: 06/26/19 23:20 VKH3062 ICU-C15) Document 06/26/19 23:59 XDV1192 (Rec: 06/26/19 23:59 BSP0616 ICU-C15) Document 06/27/19 01:00 FSI8855 (Rec: 06/27/19 01:08 JOK8647 ICU-C15) Document 06/27/19 02:00 ORH4969 (Rec: 06/27/19 02:03 JLV8173 ICU-C15) Document 06/27/19 03:00 DYW3608 (Rec: 06/27/19 05:10 MIF6643 ICU-C15) Document 06/27/19 04:00 HBO4477 (Rec: 06/27/19 05:10 XAR4850 ICU-C15) Document 06/27/19 06:00 WRA0317 (Rec: 06/27/19 06:02 TJA4623 ICU-C15) Document 06/27/19 08:00 CJQ9551 (Rec: 06/27/19 08:07 TSM2627 ICU-C15) Document 06/27/19 09:31 FDX6221 (Rec: 06/27/19 09:31 RSX8931 ICU-C15) Document 06/27/19 11:00 RTO3572 (Rec: 06/27/19 11:10 VRI7352 ICU-C15) Document 06/27/19 13:45 CXD6649 (Rec: 06/27/19 13:56 XTU9069 ICU-C15) Document 07/02/19 07:36 IXK0719 (Rec: 07/02/19 07:36 RRN7137 TELE-M20) Document 07/02/19 14:00 MVM2979 (Rec: 07/02/19 14:47 UOM2675 TELE-C05) Document 07/02/19 15:34 SUM3391 (Rec: 07/02/19 15:34 WSF9416 TELE-M20) Document 07/02/19 21:53 YGK8796 (Rec: 07/02/19 21:53 KBD4390 TELE-M21) Document 07/03/19 06:00 WYM6952 (Rec: 07/03/19 07:27 KBP7678 TELE-C10) Document 07/03/19 14:00 JBW2204 (Rec: 07/03/19 14:58 DTP3978 TELE-C01) Document 07/03/19 21:47 OST4612 (Rec: 07/03/19 21:47 TVW3599 TELE-C08) Document 07/04/19 03:30 ZOI7095 (Rec: 07/04/19 07:00 EJV4833 MED-M16) Document 07/04/19 06:00 GRV7513 (Rec: 07/04/19 06:04 GGM7178 TELE-C08) Document 07/04/19 13:35 LMW8634 (Rec: 07/04/19 13:36 MUE6003 TELE-M07) Document 07/04/19 21:32 UHL5324 (Rec: 07/04/19 21:37 JWQ5749 TELE-M07) Document 07/05/19 06:00 WWF9598 (Rec: 07/05/19 07:03 QZD9145 TELE-C10) Document 07/05/19 14:00 XON2983 (Rec: 07/05/19 14:30 FMT0586 TELE-C11) Document 07/05/19 22:00 RZM0277 (Rec: 07/05/19 23:26 HED1255 TELE-C33) Document 07/06/19 05:48 OHN2703 (Rec: 07/06/19 05:49 DOT2717 TELE-M13) Document 07/06/19 14:00 UTH5373 (Rec: 07/06/19 14:43 MRT6133 TELE-C03) Document 07/06/19 22:00 QWU2976 (Rec: 07/06/19 22:05 TEI9774 TELE-C09) Document 07/07/19 03:57 HML4942 (Rec: 07/07/19 03:57 BFL6279 TELE-C13) Document 07/07/19 05:37 XZI1679 (Rec: 07/07/19 05:37 AWJ0344 TELE-C13) Document 07/07/19 22:00 ISK8608 (Rec: 07/07/19 22:42 KDA1789 TELE-C11) Document 07/08/19 06:00 YJW1404 (Rec: 07/08/19 07:55 ONI3813 TELE-C11) Document 07/08/19 13:51 FSJ9600 (Rec: 07/08/19 13:51 FVI9632 TELE-C10) Document 07/08/19 22:00 UTB2313 (Rec: 07/08/19 22:40 ANK8571 TELE-C10) Document 07/09/19 06:00 LMW2465 (Rec: 07/09/19 06:09 MUW8549 TELE-C10) Document 07/09/19 13:14 ALY6094 (Rec: 07/09/19 13:15 GJB1323 TELE-C11) Document 07/09/19 18:00 HNR3666 (Rec: 07/09/19 18:23 ZPN2361 TELE-C05) Document 07/09/19 22:00 YVG0933 (Rec: 07/10/19 06:25 BZH1592 MED-C11) Document 07/10/19 06:00 VHZ9737 (Rec: 07/10/19 06:27 KRO4777 MED-C11) Document 07/10/19 13:34 BBF2300 (Rec: 07/10/19 13:34 RRY3184 MED-C09) Document 07/10/19 22:00 LML9440 (Rec: 07/11/19 04:55 DRT1364 MED-C11) Document 07/11/19 04:56 BAR4184 (Rec: 07/11/19 04:56 YMH3864 MED-C11) Document 07/11/19 14:00 EUQ0393 (Rec: 07/11/19 16:21 FIP0366 MED-C11) Document 07/11/19 18:38 HHU8910 (Rec: 07/11/19 18:39 HLM9087 MED-C11) Document 07/11/19 22:00 UDL9651 (Rec: 07/11/19 22:55 FAJ7362 MED-C09) Document 07/12/19 05:35 HYV5384 (Rec: 07/12/19 05:35 TNO2723 MED-C09) Document 07/12/19 14:00 VXX1773 (Rec: 07/12/19 14:16 OSC7362 MED-C05) Document 07/12/19 22:00 UWL4144 (Rec: 07/12/19 22:07 ACS0146 MED-C13) Document 07/13/19 06:00 VFO4670 (Rec: 07/13/19 06:17 YAT3949 MED-C05) Document 07/13/19 14:00 GVU6840 (Rec: 07/13/19 14:30 MEB6812 MED-C09) Document 07/13/19 20:18 NAQ0335 (Rec: 07/13/19 20:18 KQE5600 MED-C09) Document 07/14/19 06:00 AKG2072 (Rec: 07/14/19 06:27 BDO6877 MED-C09) - Physical Exam General Physical Exam Comment: She is lying with her eyes partially open, partially on her left side. She is not responding. I think she is asleep. She moves her right hand and both feet if I move them, she is lying on her left arm and is not moving her left hand spontaneously. Her extremities are cool to touch General: No Cyanosis, No Jaundice, No Clubbing Lungs and Chest: Yes: Chest Expansion Full, Chest Expansion Symetrica, Percussion Note Resonant, Vessicular Breath Sounds, Wheezes - scattered wheeze. No: Crackles, Respiratory Distress, Use of Accessory Muscles Heart Rate and Rhythm: Regular Additional Cardiovascular: Yes: Normal Heart Sounds, Heart Murmur. No: Pedal Edema Abdominal Exam: Yes: Soft, Bowel Sounds Present. No: Distention, Abdominal Tenderness Results - Results Lab Results: Laboratory Results - last 24 hr 07/13/19 07/13/19 07/13/19 10:19 10:37 17:17 Sodium 147 H Potassium 4.0 Chloride 116 H Carbon Dioxide 19 L Anion Gap 12 H BUN 85 H Creatinine 1.61 H Est GFR ( Amer) 37.4 Est GFR (Non-Af Amer) 30.9 BUN/Creatinine Ratio 52.8 H Glucose 60 L POC Glucose (mg/dL) 92 75 Calcium 8.7 Phosphorus 5.4 H Magnesium 2.3 Total Bilirubin 7.30 H AST 75 H ALT 90 H Alkaline Phosphatase 125 H C-Reactive Protein Total Protein 6.2 L Albumin 3.2 Globulin 3.0 Albumin/Globulin Ratio 1.1 Prealbumin 29 Triglycerides 128 Cholesterol 133 07/14/19 07/14/19 07/14/19 00:34 05:55 06:05 Sodium Potassium Chloride Carbon Dioxide Anion Gap BUN Creatinine Est GFR ( Amer) Est GFR (Non-Af Amer) BUN/Creatinine Ratio Glucose POC Glucose (mg/dL) 129 H 123 H Calcium Phosphorus Magnesium Total Bilirubin AST ALT Alkaline Phosphatase C-Reactive Protein 58.07 H Total Protein Albumin Globulin Albumin/Globulin Ratio Prealbumin Triglycerides Cholesterol Assessment - Problem List Assessment: Patient Problems Altered mental state (Acute) Aphasia (Acute) CHF, acute (Acute) Lower respiratory tract infection (Acute) On total parenteral nutrition (Acute) Respiratory distress (Acute) Steroid-induced diabetes (Acute) Volume overload (Acute) Alcohol dependence (Chronic) Anemia (Chronic) Anticoagulated (Chronic) Atrial fibrillation (Chronic) Bronchiectasis (Chronic) COPD (chronic obstructive pulmonary disease) (Chronic) Coronary artery disease (Chronic) DVT prophylaxis (Chronic) 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 Her states she said a couple of sentences to him yesterday. She was evaluated by speech therapy who recommend she stays NPO. The report doesn't discuss speech. I don't know if she is sleeping or encephalopathic or both CHF, acute (Acute) Lower respiratory tract infection (Acute) her CRP is increasing today. She is taking zosyn. On total parenteral nutrition (Acute) Volume overload (Acute)Bronchiectasis ( Chronic) I have halved the amount she gets per 24 hours to prevent CHF. Respiratory distress (Acute) ongoing Steroid-induced diabetes (Acute) recovering as I reduce the dose. 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 Guarded prognosis.
[2019-07-14 09:00] LABS: Albumin 3.1 g/dL (3.2-5.2); BUN/Creatinine Ratio 47.2 (8-20); Calcium 8.5 mg/dL (8.6-10.3); EGFR African American 27.2 (>60); EGFR Non-African American 22.5 (>60); Globulin 3.1 g/dL (2-4); Magnesium 2.6 mg/dL (1.9-2.7); Potassium 4.1 mmol/L (3.5-5.0); Total Bilirubin 6.4 mg/dL (0.2-1.0); Total Protein 6.2 g/dL (6.4-8.9)
[2019-07-14] MEDS: lamoTRIgine TAB(*) 100 MG PO SCH ×2 (09:15→22:50)
[2019-07-14] MEDS: Spironolactone TAB* 25 MG PO SCH (09:16)
[2019-07-14] MEDS: Enoxaparin(*) 30 MG/0.3 ML SYR SUBCUT SCH (09:17)
[2019-07-14] MEDS: Ramipril CAP* 5 MG PO SCH (09:17)
[2019-07-14] MEDS: Acetaminophen TAB* 325 MG PO PRN (09:17)
[2019-07-14] MEDS: methylPREDNISolone SOD 40 MG* 1 ML VIAL IV SCH (09:21)
[2019-07-14] MEDS: Digoxin IV* 0.5 MG/2 ML AMP (0.25 MG/ML) IV SCH (09:23)
[2019-07-14] MEDS: Insulin GLARGINE(*) 1 UNITS UNIT SUBCUT SCH (11:42)
[2019-07-14] MEDS ORDERED: D5W 1/4 NS 1000 ML BAG* 1,000 ML IV SCH (13:00)
[2019-07-14] MEDS: Atorvastatin* 40 MG TAB PO SCH (16:36)
[2019-07-14] MEDS: TPN* 24 HR with Dextrose 50% Water* 500 ML, Amino Acid Infusion 10%* 850 ML, Sterile Wa... CENTR SCH ×12 (17:48)
[2019-07-15] MEDS: Metoprolol Tartrate IV* 1 MG/ML 5 ML VIAL IV SCH ×2 (03:45→12:07)
[2019-07-15] MEDS ORDERED: NS 0.9% 500 ML* @ Wide Open(Bolus) 500ml IV ONE (04:15)
[2019-07-15] MEDS: ZOSYN 3.375 GM Q8H per EXTENDED INFUSION IVPB SCH ×2 (05:54)
[2019-07-15] MEDS: Insulin LISPRO* 1 UNITS UNIT SUBCUT SCH (06:18)
[2019-07-15 07:19] LABS: Albumin 3.1 g/dL (3.2-5.2); Albumin/Globulin Ratio 1.1 (1-3); C Reactive Protein 35.16 mg/L (<8.01); Calcium 8.2 mg/dL (8.6-10.3); EGFR African American 26.8 (>60); EGFR Non-African American 22.1 (>60); Globulin 2.9 g/dL (2-4); Magnesium 2.6 mg/dL (1.9-2.7); Phosphorus 4.2 mg/dL (2.5-5.0); Potassium 3.8 mmol/L (3.5-5.0); Total Bilirubin 5.8 mg/dL (0.2-1.0)
[2019-07-15] MEDS ORDERED: D5W 250 ML BAG* 250 ML IVPB ONE (09:00)
[2019-07-15] MEDS: Enoxaparin(*) 30 MG/0.3 ML SYR SUBCUT SCH (09:08)
[2019-07-15] MEDS: lamoTRIgine TAB(*) 100 MG PO SCH (09:08)
[2019-07-15] MEDS: Morphine INJ* 2 MG/ML 1 ML SYRINGE (TWO MG - NEW SYRINGE VERSION) IV PRN (09:09)
[2019-07-15] MEDS: Famotidine IV* 10 MG/ML 2 ML (20 mg) IV SLOW PU SCH (09:12)
[2019-07-15] MEDS: methylPREDNISolone SOD 40 MG* 1 ML VIAL IV SCH (09:12)
--- NOTE | 2019-07-15 09:48 | PN ---
Subjective - Subjective Reason for Note: Progress Note History: Abeba mumbles words indiscernibly, she is unable to follow one step commands. She opens her eyes and appears to see me, but that is not certain. She has had hypotension this morning and was given a bolus of 250 mls of NS. Yesterday we were giving her TPN at 1/2 the usual rate and also 5%D/0.25 NS at 50 mls per hour. Unfortunately, her I and O has not added any of her IVF. She likely is in negative balance, but she develops pulmonary edema when this is corrected. I have intentionally been keeping her on the dry side with furosemide. Active Problems: Active Problems Altered mental state (Acute) R41.82 Pt is even more confused and agitated today compared to yesterday at my visit. Cause of her confusion is not clear. There is no evidence of infection. CT brain negative for any acute findings. ? hospital acquired delirium in the setting of a person who at baseline is mild to moderately confused (per [facility] staff) vs related to EtOH withdrawl (seems unlikely as pt has no other signs of withdrawl) vs non convulsive status (also unlikely given how verbal and active she has been). I trialed seroquel 25mg last night and reportedly she had an ok night. Given the screaming and marked agitation at this time will give haldol 2mg IV x1 now to see if she will settle and be more appropriate with her care. Aphasia (Acute) R47.01 CHF, acute (Acute) I50.9 Pt was felt to have acute diastolic CHF/flash pulmonary edema on presenation. She required BiPAP for acute hypoxic resp failure. This is now resolved. She is now on RA. Resume lasix and spironolactone- I doubt she will take her meds at this time. Left arm weakness (Acute) R29.898 Lower respiratory tract infection (Acute) J22 On total parenteral nutrition (Acute) Z78.9 Prerenal renal failure (Acute) N19 Respiratory distress (Acute) R06.03 Steroid-induced diabetes (Acute) Volume overload (Acute) E87.70 Alcohol dependence (Chronic) F10.20 As pt is unable to tell me anything useful, it is unclear if she is still drinking. She does not appear to be withdrawling from EtOH. Anemia (Chronic) D64.9 Anticoagulated (Chronic) Z79.01 Atrial fibrillation (Chronic) I48.91 Pt is in afib but controlled rate. Continue coreg and digoxin and coumadin. Recheck INR tomorrow. Pt refused labs this AM. Bronchiectasis (Chronic) J47.9 COPD (chronic obstructive pulmonary disease) (Chronic) J44.9 No signs of exacerbation. Stop solumedrol. Monitor respiratory status. 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 Continue keppra and lamotrigine. Keppra level sent last night just prior to her receiving her evening dose. Current Medications: Current Medications Acetaminophen (Tylenol Tab*) 650 mg PO Q4H PRN PRN Reason: FEVER/PAIN Last Admin: 07/14/19 09:17 Dose: 650 mg Atorvastatin Calcium (Lipitor*) 40 mg PO 1700 [facility] Last Admin: 07/14/19 16:36 Dose: Not Given Dextrose (D50w Syringe 50 Ml*) 12.5 gm IV PUSH .FOR FS < 60 - SS PRN PRN Reason: FS < 60 Digoxin (Digoxin Iv*) 0.0625 mg IV DAILY [facility] Last Admin: 07/14/19 09:23 Dose: 0.0625 mg Enoxaparin Sodium (Lovenox(*)) 30 mg SUBCUT Q24H [facility] Last Admin: 07/15/19 09:08 Dose: 30 mg Famotidine (Pepcid Iv*) 20 mg IV SLOW PU BID [facility] Last Admin: 07/15/19 09:12 Dose: 20 mg Furosemide (Lasix Iv*) 20 mg IV BID [facility] Last Admin: 07/14/19 22:47 Dose: 20 mg Haloperidol Lactate (Haldol Inj Iv/Im*) 2.5 mg IV SLOW PU Q8H PRN PRN Reason: AGITATION Last Admin: 07/13/19 02:44 Dose: 2.5 mg Heparin Sodium (Porcine) (Heparin Flush Picc/Ml/Cvc(*)) 0 ml FLUSH 0600,1800 [facility] Last Admin: 07/15/19 05:09 Dose: Not Given Hydralazine HCl (Apresoline Iv*) 5 mg IV SLOW PU Q4H PRN PRN Reason: SBP > 160 Last Admin: 06/28/19 19:46 Dose: 5 mg Levetiracetam 250 mg/ Sodium (Chloride) 102.5 mls @ 410 mls/hr IVPB Q12H [facility] Last Admin: 07/14/19 22:41 Dose: 410 mls/hr Dextrose 500 ml/ Amino Acids 850 ml/ Sterile Water 150 ml/Fat Emulsion Intravenous 250 ml/ Sodium Chloride 25 meq/Potassium Chloride 80 meq/Potassium Phosphate 15 mmole/Calcium Gluconate 15 meq/Magnesium Sulfate 10 meq/ Multivitamins 10 ml/ Trace Metals 1 ml/ Nutrition ( Parenteral) 1,846.971 mls @ 38.479 mls/hr CENTR 1700 [facility]; Protocol Last Admin: 07/14/19 17:48 Dose: 38.479 mls/hr Dextrose/Sodium Chloride (D5w 1/4 Ns 1000 Ml Bag*) 1,000 mls @ 50 mls/hr IV PER RATE [facility] Last Admin: 07/14/19 12:37 Dose: 50 mls/hr Piperacillin Sod/Tazobactam (Sod 3.375 gm/ Sodium Chloride) 100 mls @ 25 mls/ hr IVPB Q12H [facility] Last Admin: 07/15/19 05:54 Dose: 25 mls/hr Dextrose (D5w 250 Ml Bag*) 250 mls @ 250 mls/hr IVPB ONCE ONE Stop: 07/15/19 09:59 Last Admin: 07/15/19 09:03 Dose: 250 mls/hr Insulin Glargine (Lantus(*)) 18 units SUBCUT Q24H [facility] Last Admin: 07/14/19 11:42 Dose: 18 units Insulin Human Lispro (Humalog*) 0 - 6 units SUBCUT Q6HR [facility]; Protocol Last Admin: 07/15/19 06:18 Dose: Not Given Lamotrigine (Lamictal Tab(*)) 50 mg PO BID [facility] Last Admin: 07/15/19 09:08 Dose: 50 mg Levalbuterol HCl (Xopenex 0.63mg/3ml Neb*) 0.31 mg INH Q6H PRN PRN Reason: SOB/WHEEZING Last Admin: 06/25/19 21:39 Dose: 0.63 mg Methylprednisolone Sodium Succinate (Solu-Medrol 40 Mg) 5 mg IV DAILY [facility] Last Admin: 07/15/19 09:12 Dose: 5 mg Metoprolol Tartrate (Lopressor Iv*) 2.5 mg IV Q6H [facility] Last Admin: 07/15/19 03:45 Dose: Not Given Miscellaneous (Ativan Pyxis Prado) 1 ea N/A .PYXIS PRADO PRN PRN Reason: PER PROTOCOL Morphine Sulfate (Morphine Inj (Syringe))*) 1 mg IV Q2H PRN PRN Reason: .PAIN Last Admin: 07/15/19 09:09 Dose: 1 mg Ramipril (Altace Cap*) 5 mg PO DAILY [facility] Last Admin: 07/14/19 09:17 Dose: 5 mg Spironolactone (Aldactone Tab*) 12.5 mg PO DAILY [facility] Last Admin: 07/14/19 09:16 Dose: 12.5 mg Home Medications: Home Medications Medication Instructions Recorded Confirmed Type Digoxin TAB* [Lanoxin TAB*] 0.125 mg PO DAILY 11/14/17 06/23/19 History levETIRAcetam TAB* [Keppra TAB*] 750 mg PO BID tab 11/16/17 06/23/19 Rx Atorvastatin* [Lipitor 20 MG*] 20 mg PO BEDTIME 12/01/18 06/23/19 History lamoTRIgine TAB(*) [Lamictal 100 mg PO BID 12/01/18 06/23/19 History TAB(*)] Carvedilol TAB* [Coreg TAB*] 3.125 mg PO BID #60 tab 06/19/19 06/23/19 Rx Furosemide TAB* [Lasix TAB*] 20 mg PO 0800 5 Days #30 tab 06/19/19 06/23/19 Rx Levalbuterol 0.63MG/3ML NEB* 0.31 mg INH Q6H PRN #30 neb.soln 06/19/19 06/23/19 Rx [Xopenex 0.63MG/3ML NEB*] Spironolactone TAB* [Aldactone TAB 12.5 mg PO DAILY #30 tab 06/19/19 06/23/19 Rx 25 MG*] predniSONE TAB* [Deltasone 20 MG 5 mg PO DAILY #10 tab 06/19/19 06/23/19 Rx TAB*] Cephalexin 500 mg PO QID 06/23/19 06/23/19 History Warfarin TAB(*) [Coumadin TAB(*)] 0.5 mg PO DAILY@1700 06/23/19 06/23/19 History Allergies: Allergies Allergy/AdvReac Type Severity Reaction Status Date / Time No Known Allergies Allergy Verified 06/23/19 04:24 Objective - Vital Signs Vital Signs: Vital Signs 07/14/19 07/14/19 07/14/19 10:23 11:15 11:20 Temperature 97.6 F Pulse Rate 86 Respiratory 28 22 20 Rate Blood Pressure 98/56 (mmHg) O2 Sat by Pulse 94 Oximetry 07/14/19 07/14/19 07/14/19 12:40 14:16 15:18 Temperature 97.6 F Pulse Rate 105 Respiratory 24 20 20 Rate Blood Pressure 110/86 (mmHg) O2 Sat by Pulse 98 Oximetry 07/14/19 07/14/19 07/14/19 16:35 17:23 19:20 Temperature 96.2 F Pulse Rate 91 Respiratory 22 24 20 Rate Blood Pressure 93/78 (mmHg) O2 Sat by Pulse 100 Oximetry 07/14/19 07/14/19 07/14/19 20:22 22:18 22:46 Temperature 97.1 F Pulse Rate 98 Respiratory 24 24 22 Rate Blood Pressure 105/64 (mmHg) O2 Sat by Pulse 100 Oximetry 07/15/19 07/15/19 07/15/19 00:22 00:24 03:01 Temperature Pulse Rate 86 Respiratory 18 24 Rate Blood Pressure 74/44 (mmHg) O2 Sat by Pulse 100 Oximetry 07/15/19 07/15/19 05:05 09:09 Temperature Pulse Rate Respiratory 16 Rate Blood Pressure 118/84 (mmHg) O2 Sat by Pulse Oximetry - Intake and Output Intake and Output: Intake & Output 07/12/19 07/13/19 07/14/19 07/15/19 11:59 11:59 11:59 11:59 Intake Total 4461 3686 3616 230 Output Total 2950 2500 725 5250 Balance 1511 9253 6601 5020 Weight 114 lb 11.2 oz 112 lb 9.6 oz 110 lb Intake: IV Fluids 2100 40 3050 20 ABX - ZOSYN 100 20 Keppra 20 NS (0.9%) 2000 3050 20 IVPB 200 300 106 210 ABX - ZOSYN 100 200 210 Keppra 100 100 106 TPN/PPN 2161 3286 Oral 0 60 460 0 Output: Joya 2950 2500 725 5250 Other: Date of Last Bowel unknown unknown Movement # Bowel Movements 0 0 0 ADLs: Meal Record Start: 06/23/19 11: 08 Freq: 09,13,18 Status: Complete Protocol: Created 06/23/19 11:08 System (Rec: 06/23/19 11:08 System [facility]-C05) ADLs: Meal Record Start: 06/23/19 15: 24 Freq: DAILY@0900,1400,1800 Status: Active Protocol: Created 06/23/19 15:24 VME4027 (Rec: 06/23/19 15:24 QHK6533 ICU-C25) Document 06/23/19 18:00 TBS1113 (Rec: 06/23/19 20:33 LPX3963 TELE-C07) Document 06/24/19 09:00 OOC8459 (Rec: 06/24/19 10:22 NSO3494 TELE-C03) Document 06/24/19 18:00 KYD9425 (Rec: 06/24/19 18:15 QCX7349 TELE-C07) Document 06/25/19 08:58 YNL7237 (Rec: 06/25/19 08:59 GDU6134 TELE-M11) Document 06/25/19 13:57 ZEK5745 (Rec: 06/25/19 13:59 SLL4856 TELE-M11) Document 06/25/19 18:00 BFY9739 (Rec: 06/25/19 22:40 PDK3539 TELE-C05) Document 06/26/19 10:00 UXH6592 (Rec: 06/26/19 11:06 MGH3768 ICU-C15) Document 06/26/19 18:00 ZZI0452 (Rec: 06/26/19 18:05 GSI8763 ICU-L03) Document 06/28/19 11:23 GEB6927 (Rec: 06/28/19 11:23 HLX6950 TELE-M21) Document 06/28/19 13:25 DJZ7071 (Rec: 06/28/19 13:25 RBY0190 TELE-M21) Document 06/28/19 21:48 AEH7651 (Rec: 06/28/19 21:48 JYB5681 TELE-C11) Document 06/29/19 04:22 LEH7345 (Rec: 06/29/19 04:23 LFB8614 TELE-M21) Document 06/29/19 05:29 QOL7052 (Rec: 06/29/19 05:29 BUS2864 TELE-M21) Document 06/30/19 18:13 OBT5743 (Rec: 06/30/19 18:13 DPZ7909 TELE-M21) Document 07/01/19 09:50 DII2744 (Rec: 07/01/19 09:50 QKY6755 TELE-M21) Document 07/01/19 13:21 AAM1248 (Rec: 07/01/19 13:21 LZB4263 TELE-M21) Document 07/01/19 19:39 QQC2007 (Rec: 07/01/19 19:39 UWS1331 TELE-M21) Document 07/02/19 14:00 TEC4074 (Rec: 07/02/19 14:47 VZU1445 TELE-C05) Document 07/02/19 18:00 ZNQ6841 (Rec: 07/02/19 18:28 FYE5576 TELE-M21) Document 07/03/19 09:00 VPE0144 (Rec: 07/03/19 10:47 ZGY2588 TELE-C01) Document 07/03/19 12:58 TRJ0653 (Rec: 07/03/19 12:58 GNC5831 TELE-C01) Document 07/03/19 18:00 RKK8354 (Rec: 07/03/19 20:00 GVT3997 TELE-C08) Document 07/04/19 09:00 EPS3968 (Rec: 07/04/19 09:37 PLL4142 TELE-M07) Document 07/04/19 12:44 WQC4987 (Rec: 07/04/19 12:44 MTG6738 TELE-M07) Document 07/04/19 18:00 HFY7739 (Rec: 07/04/19 18:07 XJR2587 TELE-M07) Document 07/05/19 09:00 TWE1615 (Rec: 07/05/19 14:02 OAA7174 TELE-C11) Document 07/05/19 14:00 FMM6034 (Rec: 07/05/19 14:04 DGF7978 TELE-C11) Document 07/05/19 18:00 NUB6160 (Rec: 07/05/19 18:21 GEU1372 TELE-M15) Document 07/06/19 09:00 LNP2151 (Rec: 07/06/19 12:05 LUW2018 TELE-C08) Document 07/06/19 14:00 DQW8822 (Rec: 07/06/19 14:43 IFE4248 TELE-C03) Document 07/06/19 18:00 XGE3159 (Rec: 07/06/19 22:02 EOQ8470 TELE-C09) Document 07/07/19 18:00 WKT7798 (Rec: 07/07/19 20:04 FQL5930 TELE-C11) Document 07/08/19 09:00 VKQ2434 (Rec: 07/08/19 09:54 USQ0479 TELE-C10) Document 07/08/19 13:50 PJL1113 (Rec: 07/08/19 13:51 TFF9163 TELE-C10) Document 07/08/19 18:00 ZCQ1869 (Rec: 07/08/19 20:09 WLQ3121 TELE-C10) Document 07/09/19 08:42 TKJ6571 (Rec: 07/09/19 08:43 XMR9859 TELE-C11) Document 07/09/19 13:14 WIR5512 (Rec: 07/09/19 13:14 VCL3021 TELE-C11) Document 07/09/19 18:00 EGP4942 (Rec: 07/09/19 21:14 MJX3600 MED-C09) Document 07/10/19 08:58 VDW0520 (Rec: 07/10/19 08:58 YTQ7375 MED-C09) Document 07/10/19 13:34 YQR7142 (Rec: 07/10/19 13:34 ZXB7460 MED-C09) Document 07/10/19 17:46 HOK0668 (Rec: 07/10/19 17:47 EOF5257 MED-C13) Document 07/11/19 09:00 VDD1072 (Rec: 07/11/19 11:21 AZN7065 MED-C11) Document 07/11/19 14:00 XIA6991 (Rec: 07/11/19 14:18 LQF9516 MED-C13) Document 07/11/19 18:00 FFA5788 (Rec: 07/11/19 18:23 QOY3577 MED-C13) Document 07/12/19 09:00 FFO6017 (Rec: 07/12/19 09:17 WEI8012 MED-C05) Document 07/12/19 14:00 VPW6890 (Rec: 07/12/19 14:16 EBI4038 MED-C05) Document 07/12/19 18:00 GBJ3990 (Rec: 07/12/19 22:01 FDG4628 MED-C02) Document 07/13/19 09:00 VTC1982 (Rec: 07/13/19 12:17 WJS7074 MED-C09) Document 07/13/19 14:00 BEQ2819 (Rec: 07/13/19 14:30 SKY6322 MED-C09) Document 07/13/19 17:57 BAF4637 (Rec: 07/13/19 17:58 OSV4244 MED-C11) Document 07/14/19 08:30 EUI6133 (Rec: 07/14/19 08:31 BII8149 MED-C16) Document 07/14/19 13:24 UHN4354 (Rec: 07/14/19 13:24 YJW2731 MED-C16) Document 07/14/19 17:43 UJH4913 (Rec: 07/14/19 17:43 AUE6629 MED-C16) ADLs: Meal Record Start: 06/25/19 22: 26 Freq: Status: Complete Protocol: Created 06/25/19 22:26 NDB2446 (Rec: 06/25/19 22:26 QLR3611 ICU-C25) ADLs: Meal Record Start: 06/28/19 12: 17 Freq: Status: Cancelled Protocol: Created 06/28/19 12:17 BDX2548 (Rec: 06/28/19 12:17 KJB4344 TELE-M21) Intake and Output Start: 06/23/19 04: 23 Freq: Status: Inactive Protocol: Created 06/23/19 04:23 System (Rec: 06/23/19 04:23 System EDRM-C10) Intake and Output Start: 06/23/19 11: 08 Freq: Q1HR Status: Inactive Protocol: Created 06/23/19 11:08 System (Rec: 06/23/19 11:08 System PMRU-C05) Document 06/23/19 14:59 JSS5051 (Rec: 06/23/19 15:00 OZB3665 ICU-C25) Intake and Output Start: 06/23/19 15: 24 Freq: DAILY@0600,1400,2200 Status: Inactive Protocol: Document 06/23/19 12:00 DFZ1180 (Rec: 06/23/19 15:26 ERT0801 ICU-C25) Created 06/23/19 15:24 EHW5145 (Rec: 06/23/19 15:24 VFP7297 ICU-C25) Document 06/23/19 21:29 QPQ4198 (Rec: 06/23/19 21:30 OCK1333 TELE-C07) Document 06/24/19 06:00 KYL2528 (Rec: 06/24/19 06:06 HLE9745 TELE-C09) Document 06/24/19 22:00 ZIB7998 (Rec: 06/24/19 22:36 RNW6483 TELE-C07) Document 06/25/19 05:51 YCH7113 (Rec: 06/25/19 05:52 GED6374 TELE-C07) Document 06/25/19 12:11 BFD5963 (Rec: 06/25/19 12:12 IGI2796 TELE-M11) Intake and Output Start: 06/25/19 22: 26 Freq: 06,14,2200 Status: Active Protocol: Created 06/25/19 22:26 JOQ9101 (Rec: 06/25/19 22:26 LQQ8917 ICU-C25) Document 06/25/19 23:00 AAW0581 (Rec: 06/25/19 23:05 EIJ8062 ICU-C25) Document 06/25/19 23:28 KNW0792 (Rec: 06/25/19 23:30 FXS4887 ICU-C16) Document 06/25/19 23:47 TQY7829 (Rec: 06/25/19 23:47 QMM4744 ICU-C25) Document 06/26/19 01:00 EQS2465 (Rec: 06/26/19 02:24 SXQ8946 ICU-C25) Document 06/26/19 02:00 HCP4220 (Rec: 06/26/19 02:24 SYS9678 ICU-C25) Document 06/26/19 03:00 WIN6028 (Rec: 06/26/19 03:21 WHN3617 ICU-C25) Document 06/26/19 04:00 DPE1098 (Rec: 06/26/19 04:13 RTY3471 ICU-C25) Document 06/26/19 05:00 BJW2669 (Rec: 06/26/19 05:01 YJV8811 ICU-C25) Document 06/26/19 06:00 DMW0289 (Rec: 06/26/19 06:05 XWI0801 ICU-C25) Document 06/26/19 07:00 KCJ6696 (Rec: 06/26/19 07:58 SZQ5225 ICU-C15) Document 06/26/19 07:58 OKU1088 (Rec: 06/26/19 07:58 OCS8933 ICU-C15) Document 06/26/19 09:00 ETZ0112 (Rec: 06/26/19 09:41 UIZ5931 ICU-C15) Document 06/26/19 10:00 ETQ0001 (Rec: 06/26/19 11:07 MFX9490 ICU-C15) Document 06/26/19 11:00 EUK2582 (Rec: 06/26/19 11:07 NFW2143 ICU-C15) Document 06/26/19 12:00 WOR5556 (Rec: 06/26/19 12:14 RRY8530 ICU-C15) Document 06/26/19 13:00 DVY3975 (Rec: 06/26/19 13:22 IPP3233 ICU-C15) Document 06/26/19 14:00 GHY0807 (Rec: 06/26/19 17:56 IHN7858 ICU-L03) Document 06/26/19 15:00 HDD0335 (Rec: 06/26/19 17:57 YSO0030 ICU-L03) Document 06/26/19 16:00 STB3924 (Rec: 06/26/19 17:57 OTE9815 ICU-L03) Document 06/26/19 17:00 VLP5144 (Rec: 06/26/19 17:57 YII8976 ICU-L03) Document 06/26/19 17:57 OIF6776 (Rec: 06/26/19 17:57 CCM2480 ICU-L03) Document 06/26/19 19:00 NYT5587 (Rec: 06/26/19 19:08 SIA6129 ISDEMO-M03 ) Document 06/26/19 20:00 AYG3125 (Rec: 06/26/19 20:05 TMQ8658 ICU-C15) Document 06/26/19 21:00 BBF4320 (Rec: 06/26/19 22:09 VNZ4331 ISDEMO-M03 ) Document 06/26/19 22:00 LCO4573 (Rec: 06/26/19 22:09 MEV1952 ISDEMO-M03 ) Document 06/26/19 23:00 ARF7856 (Rec: 06/26/19 23:20 VVP6502 ICU-C15) Document 06/26/19 23:59 RVP8113 (Rec: 06/26/19 23:59 LCG2213 ICU-C15) Document 06/27/19 01:00 IBD6105 (Rec: 06/27/19 01:08 LWU5049 ICU-C15) Document 06/27/19 02:00 UDG1058 (Rec: 06/27/19 02:03 ZNM2288 ICU-C15) Document 06/27/19 03:00 WJI9391 (Rec: 06/27/19 05:10 WOI1551 ICU-C15) Document 06/27/19 04:00 KZI6946 (Rec: 06/27/19 05:10 WHF4627 ICU-C15) Document 06/27/19 06:00 OQM8467 (Rec: 06/27/19 06:02 BXR5121 ICU-C15) Document 06/27/19 08:00 HTJ6474 (Rec: 06/27/19 08:07 TEH0256 ICU-C15) Document 06/27/19 09:31 VUZ2957 (Rec: 06/27/19 09:31 YFS9157 ICU-C15) Document 06/27/19 11:00 LGG6113 (Rec: 06/27/19 11:10 BZS6147 ICU-C15) Document 06/27/19 13:45 GEZ6460 (Rec: 06/27/19 13:56 HAB1278 ICU-C15) Document 07/02/19 07:36 FFC8997 (Rec: 07/02/19 07:36 KUQ3521 TELE-M20) Document 07/02/19 14:00 UVS9299 (Rec: 07/02/19 14:47 UQL5614 TELE-C05) Document 07/02/19 15:34 VVF1012 (Rec: 07/02/19 15:34 SDR8778 TELE-M20) Document 07/02/19 21:53 GTX2901 (Rec: 07/02/19 21:53 TEP1764 TELE-M21) Document 07/03/19 06:00 MUP7726 (Rec: 07/03/19 07:27 EYU1216 TELE-C10) Document 07/03/19 14:00 VII8790 (Rec: 07/03/19 14:58 ZOT0649 TELE-C01) Document 07/03/19 21:47 DZB0453 (Rec: 07/03/19 21:47 UXS5629 TELE-C08) Document 07/04/19 03:30 HEK8783 (Rec: 07/04/19 07:00 TDU7671 MED-M16) Document 07/04/19 06:00 UMI2996 (Rec: 07/04/19 06:04 NSJ6443 TELE-C08) Document 07/04/19 13:35 XJD0362 (Rec: 07/04/19 13:36 ZQT4792 TELE-M07) Document 07/04/19 21:32 QTS3246 (Rec: 07/04/19 21:37 EGH2213 TELE-M07) Document 07/05/19 06:00 DVI7854 (Rec: 07/05/19 07:03 DDL5174 TELE-C10) Document 07/05/19 14:00 TNY4520 (Rec: 07/05/19 14:30 DAG8304 TELE-C11) Document 07/05/19 22:00 SNV3229 (Rec: 07/05/19 23:26 USG6287 TELE-C33) Document 07/06/19 05:48 LVB8513 (Rec: 07/06/19 05:49 XSQ5683 TELE-M13) Document 07/06/19 14:00 AJB0682 (Rec: 07/06/19 14:43 EKT1469 TELE-C03) Document 07/06/19 22:00 OAO9733 (Rec: 07/06/19 22:05 BAZ6372 TELE-C09) Document 07/07/19 03:57 GFI3617 (Rec: 07/07/19 03:57 TCJ9586 TELE-C13) Document 07/07/19 05:37 SFM1848 (Rec: 07/07/19 05:37 DYF8785 TELE-C13) Document 07/07/19 22:00 SQC0142 (Rec: 07/07/19 22:42 GLK0124 TELE-C11) Document 07/08/19 06:00 MAW7828 (Rec: 07/08/19 07:55 NQU4615 TELE-C11) Document 07/08/19 13:51 PBT8281 (Rec: 07/08/19 13:51 DOV6792 TELE-C10) Document 07/08/19 22:00 MDZ3031 (Rec: 07/08/19 22:40 EKG2969 TELE-C10) Document 07/09/19 06:00 NXY3653 (Rec: 07/09/19 06:09 EFP3757 TELE-C10) Document 07/09/19 13:14 NZV5731 (Rec: 07/09/19 13:15 OHO0433 TELE-C11) Document 07/09/19 18:00 IPT1300 (Rec: 07/09/19 18:23 XTL1872 TELE-C05) Document 07/09/19 22:00 KEW2389 (Rec: 07/10/19 06:25 UND2934 MED-C11) Document 07/10/19 06:00 CSO6852 (Rec: 07/10/19 06:27 VLO5949 MED-C11) Document 07/10/19 13:34 BPY1269 (Rec: 07/10/19 13:34 GWH8316 MED-C09) Document 07/10/19 22:00 KUD1242 (Rec: 07/11/19 04:55 IGV4518 MED-C11) Document 07/11/19 04:56 TZF7141 (Rec: 07/11/19 04:56 OLB8076 MED-C11) Document 07/11/19 14:00 GJS6119 (Rec: 07/11/19 16:21 NLR4569 MED-C11) Document 07/11/19 18:38 UCO3214 (Rec: 07/11/19 18:39 VBQ6187 MED-C11) Document 07/11/19 22:00 FJF0963 (Rec: 07/11/19 22:55 FYP4571 MED-C09) Document 07/12/19 05:35 FDF5777 (Rec: 07/12/19 05:35 FHB1953 MED-C09) Document 07/12/19 14:00 QHD4739 (Rec: 07/12/19 14:16 MMX6432 MED-C05) Document 07/12/19 22:00 WAP6195 (Rec: 07/12/19 22:07 USW9151 MED-C13) Document 07/13/19 06:00 [id number] (Rec: 07/13/19 06:17 [id number] MED-C05) Document 07/13/19 14:00 [id number] (Rec: 07/13/19 14:30 [id number] MED-C09) Document 07/13/19 20:18 [id number] (Rec: 07/13/19 20:18 [id number] MED-C09) Document 07/14/19 06:00 [id number] (Rec: 07/14/19 06:27 [id number] MED-C09) Document 07/14/19 14:00 [id number] (Rec: 07/14/19 14:30 [id number] MED-C16) Document 07/14/19 21:21 [id number] (Rec: 07/14/19 21:21 [id number] MED-C13) Document 07/15/19 06:00 [id number] (Rec: 07/15/19 06:13 [id number] MED-C13) - Physical Exam General Physical Exam Comment: Lying again on her left side. Her left arm appears flaccid and in the "waiters tip" position making my concerned about a radial nerve palsy. General: No Cyanosis, No Anemia, No Jaundice, No Clubbing Skin: Normal: Rash Lungs and Chest: Yes: Chest Expansion Full, Chest Expansion Symetrica, Percussion Note Resonant, Vessicular Breath Sounds. No: Crackles, Wheezes, Respiratory Distress Heart Rate and Rhythm: Irregular Additional Cardiovascular: Yes: Normal Heart Sounds, Heart Murmur. No: Pedal Edema Abdominal Exam: Yes: Soft, Bowel Sounds Present. No: Distention, Abdominal Tenderness Results - Results Lab Results: Laboratory Results - last 24 hr 07/14/19 07/14/19 07/14/19 11:11 17:51 23:12 Sodium Potassium Chloride Carbon Dioxide Anion Gap BUN Creatinine Est GFR ( Amer) Est GFR (Non-Af Amer) BUN/Creatinine Ratio Glucose POC Glucose (mg/dL) 191 H 246 H 131 H Calcium Phosphorus Magnesium Total Bilirubin AST ALT Alkaline Phosphatase C-Reactive Protein Total Protein Albumin Globulin Albumin/Globulin Ratio Prealbumin Triglycerides Cholesterol 07/15/19 07/15/19 05:56 06:05 Sodium 148 H Potassium 3.8 Chloride 120 H Carbon Dioxide 17 L Anion Gap 11 BUN 101 H Creatinine 2.15 H Est GFR ( Amer) 26.8 Est GFR (Non-Af Amer) 22.1 BUN/Creatinine Ratio 47.0 H Glucose 87 POC Glucose (mg/dL) 100 Calcium 8.2 L Phosphorus 4.2 Magnesium 2.6 Total Bilirubin 5.80 H AST 77 H ALT 109 H Alkaline Phosphatase 122 H C-Reactive Protein 35.16 H Total Protein 6.0 L Albumin 3.1 L Globulin 2.9 Albumin/Globulin Ratio 1.1 Prealbumin 28 Triglycerides 181 Cholesterol 133 Assessment - Problem List Assessment: Patient Problems Altered mental state (Acute) Aphasia (Acute) CHF, acute (Acute) Left arm weakness (Acute) Lower respiratory tract infection (Acute) On total parenteral nutrition (Acute) Prerenal renal failure (Acute) Respiratory distress (Acute) Steroid-induced diabetes (Acute) Volume overload (Acute) Alcohol dependence (Chronic) Anemia (Chronic) Anticoagulated (Chronic) Atrial fibrillation (Chronic) Bronchiectasis (Chronic) COPD (chronic obstructive pulmonary disease) (Chronic) Coronary artery disease (Chronic) DVT prophylaxis (Chronic) 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
--- NOTE | 2019-07-15 10:02 | PN ---
Progress Note - Progress Note Date of Service: 07/15/19 Note: Progress note continued: Assessment/Plan: Altered mental state (Acute) Volume overload (Acute) This is ongoing. She appears to be more purposive again as she spoke a few words that I couldn't understand. She also looked at me. However, she is not following one step commands. Left arm weakness (Acute) This is new and appears to be a radial nerve palsy or a plexopathy - likely due to positioning. I have instructed nursing on management - off load her left shoulder and neck Pre-renal failure/hypovolemia alternating with Volume overload (Acute) Today she is hypotensive and she has had an increase in her BUN/Cr. We have already given her a bolus of D5W 250 mls. I will give her another bolus. I am holding her diuretics. We ran TPN at 38 mls per hour plus 50 mls of 5D/50.25 saline (2 liters in 24 hours). We will increase the TPN to full rate. CHF, acute (Acute) Her lungs are clear. Lower respiratory tract infection (Acute) Her CRP is coming down On total parenteral nutrition (Acute) 1/2 rate Respiratory distress (Acute) not this am. Steroid-induced diabetes (Acute) stable Liver failure - she is now jaundiced. 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 She has renal, liver failure. She remains cognitively impaired. She is developing peripheral nerve issues due to the difficulty of nursing her. I am meeting with her and want to once again address comfort care.
[2019-07-15] MEDS ORDERED: Morphine INJ* 2 MG/ML 1 ML SYRINGE (TWO MG - NEW SYRINGE VERSION) IV PRN (10:33)
[2019-07-15] MEDS ORDERED: Lorazepam PYXIS KEY PRN (10:34)
[2019-07-15] MEDS ORDERED: LORazepam INJ* 2 MG/ML 1 ML VIAL IV PUSH PRN (10:34)
[2019-07-15] MEDS: LORazepam INJ* 2 MG/ML 1 ML VIAL IV PUSH PRN ×2 (11:17→16:05)
[2019-07-15] MEDS ORDERED: NS 0.45% IV ONE (12:00)
[2019-07-15] MEDS: Ramipril CAP* 5 MG PO SCH (12:07)
[2019-07-15] MEDS: Spironolactone TAB* 25 MG PO SCH (12:07)
[2019-07-15] MEDS: Furosemide IV* 10 MG/ML 2 ML VIAL (20 MG) IV SCH (12:07)
[2019-07-15] MEDS: Digoxin IV* 0.5 MG/2 ML AMP (0.25 MG/ML) IV SCH (12:08)
[2019-07-15] MEDS: Insulin GLARGINE(*) 1 UNITS UNIT SUBCUT SCH (12:08)
[2019-07-15] MEDS ORDERED: Atropine 1% (ORAL/SL)* 15 ML BTL SL PRN (14:50)
[2019-07-15 16:47] VITALS: BP 95/50
[2019-07-16] MEDS: LORazepam INJ* 2 MG/ML 1 ML VIAL IV PUSH PRN ×6 (00:08→23:07)
[2019-07-16] MEDS: methylPREDNISolone SOD 40 MG* 1 ML VIAL IV SCH (08:18)
[2019-07-16] MEDS: Morphine INJ* 2 MG/ML 1 ML SYRINGE (TWO MG - NEW SYRINGE VERSION) IV PRN ×4 (08:19→19:38)
[2019-07-16] MEDS ORDERED: Famotidine IV* 10 MG/ML 2 ML (20 mg) IV SLOW PU SCH (09:00)
[2019-07-17] MEDS: Morphine INJ* 2 MG/ML 1 ML SYRINGE (TWO MG - NEW SYRINGE VERSION) IV PRN ×2 (05:08→08:17)
--- NOTE | 2019-07-17 07:57 | PN ---
Subjective - Subjective Reason for Note: Progress Note History: She is unconscious and anuric, actively dying Active Problems: Active Problems Altered mental state (Acute) R41.82 Pt is even more confused and agitated today compared to yesterday at my visit. Cause of her confusion is not clear. There is no evidence of infection. CT brain negative for any acute findings. ? hospital acquired delirium in the setting of a person who at baseline is mild to moderately confused (per [facility] staff) vs related to EtOH withdrawl (seems unlikely as pt has no other signs of withdrawl) vs non convulsive status (also unlikely given how verbal and active she has been). I trialed seroquel 25mg last night and reportedly she had an ok night. Given the screaming and marked agitation at this time will give haldol 2mg IV x1 now to see if she will settle and be more appropriate with her care. Aphasia (Acute) R47.01 CHF, acute (Acute) I50.9 Pt was felt to have acute diastolic CHF/flash pulmonary edema on presenation. She required BiPAP for acute hypoxic resp failure. This is now resolved. She is now on RA. Resume lasix and spironolactone- I doubt she will take her meds at this time. Comfort measures only status (Acute) Z51.5 Left arm weakness (Acute) R29.898 Lower respiratory tract infection (Acute) J22 On total parenteral nutrition (Acute) Z78.9 Prerenal renal failure (Acute) N19 Respiratory distress (Acute) R06.03 Steroid-induced diabetes (Acute) Volume overload (Acute) E87.70 Alcohol dependence (Chronic) F10.20 As pt is unable to tell me anything useful, it is unclear if she is still drinking. She does not appear to be withdrawling from EtOH. Anemia (Chronic) D64.9 Anticoagulated (Chronic) Z79.01 Atrial fibrillation (Chronic) I48.91 Pt is in afib but controlled rate. Continue coreg and digoxin and coumadin. Recheck INR tomorrow. Pt refused labs this AM. Bronchiectasis (Chronic) J47.9 COPD (chronic obstructive pulmonary disease) (Chronic) J44.9 No signs of exacerbation. Stop solumedrol. Monitor respiratory status. 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 Continue keppra and lamotrigine. Keppra level sent last night just prior to her receiving her evening dose. Current Medications: Current Medications Acetaminophen (Tylenol Tab*) 650 mg PO Q4H PRN PRN Reason: FEVER/PAIN Last Admin: 07/14/19 09:17 Dose: 650 mg Atropine Sulfate (Atropine 1% (Oral/Sl)*) 2 drop SL Q4H PRN PRN Reason: COURSE LUNGS Dextrose (D50w Syringe 50 Ml*) 12.5 gm IV PUSH .FOR FS < 60 - SS PRN PRN Reason: FS < 60 Haloperidol Lactate (Haldol Inj Iv/Im*) 2.5 mg IV SLOW PU Q8H PRN PRN Reason: AGITATION Last Admin: 07/13/19 02:44 Dose: 2.5 mg Heparin Sodium (Porcine) (Heparin Flush Picc/Ml/Cvc(*)) 0 ml FLUSH 0600,1800 NIC Last Admin: 07/17/19 05:10 Dose: 2 ml Lorazepam (Ativan Inj*) 1 mg IV PUSH Q4H PRN PRN Reason: ANXIETY Last Admin: 07/16/19 23:07 Dose: 1 mg Methylprednisolone Sodium Succinate (Solu-Medrol 40 Mg) 5 mg IV DAILY NIC Last Admin: 07/16/19 08:18 Dose: 5 mg Miscellaneous (Ativan Pyxis Prado) 1 ea N/A .ATIVAN IV PRADO PRN PRN Reason: PYXIS PRADO Morphine Sulfate (Morphine Inj (Syringe))*) 2 mg IV Q2H PRN PRN Reason: PAIN - MODERATE Last Admin: 07/17/19 05:08 Dose: 2 mg Home Medications: Home Medications Medication Instructions Recorded Confirmed Type Digoxin TAB* [Lanoxin TAB*] 0.125 mg PO DAILY 11/14/17 06/23/19 History levETIRAcetam TAB* [Keppra TAB*] 750 mg PO BID tab 11/16/17 06/23/19 Rx Atorvastatin* [Lipitor 20 MG*] 20 mg PO BEDTIME 12/01/18 06/23/19 History lamoTRIgine TAB(*) [Lamictal 100 mg PO BID 12/01/18 06/23/19 History TAB(*)] Carvedilol TAB* [Coreg TAB*] 3.125 mg PO BID #60 tab 06/19/19 06/23/19 Rx Furosemide TAB* [Lasix TAB*] 20 mg PO 0800 5 Days #30 tab 06/19/19 06/23/19 Rx Levalbuterol 0.63MG/3ML NEB* 0.31 mg INH Q6H PRN #30 neb.soln 06/19/19 06/23/19 Rx [Xopenex 0.63MG/3ML NEB*] Spironolactone TAB* [Aldactone TAB 12.5 mg PO DAILY #30 tab 06/19/19 06/23/19 Rx 25 MG*] predniSONE TAB* [Deltasone 20 MG 5 mg PO DAILY #10 tab 06/19/19 06/23/19 Rx TAB*] Cephalexin 500 mg PO QID 06/23/19 06/23/19 History Warfarin TAB(*) [Coumadin TAB(*)] 0.5 mg PO DAILY@1700 06/23/19 06/23/19 History Allergies: Allergies Allergy/AdvReac Type Severity Reaction Status Date / Time No Known Allergies Allergy Verified 06/23/19 04:24 Objective - Vital Signs Vital Signs: Vital Signs 07/16/19 07/16/19 07/16/19 08:00 08:19 09:19 Temperature 96.4 F Respiratory 26 26 26 Rate 07/16/19 07/16/19 07/16/19 10:52 13:06 13:37 Temperature Respiratory 22 26 24 Rate 07/16/19 07/16/19 07/16/19 15:13 15:57 16:12 Temperature Respiratory 24 24 24 Rate 07/16/19 07/16/19 07/16/19 16:49 17:29 18:44 Temperature Respiratory 24 24 24 Rate 07/16/19 07/16/1919 19:38 19:49 19:51 Temperature Respiratory 24 24 24 Rate 07/16/19 07/16/19 07/17/19 21:00 23:07 00:52 Temperature Respiratory 18 22 20 Rate 07/17/19 07/17/19 05:08 06:46 Temperature Respiratory 24 24 Rate - Intake and Output Intake and Output: Intake & Output 07/14/19 07/15/19 07/16/19 07/17/19 11:59 11:59 11:59 11:59 Intake Total 3616 3553 250 Output Total 725 5250 550 Balance 1002 -1505 -300 Weight 112 lb 9.6 oz 110 lb Intake: IV Fluids 3050 1894 250 ABX - ZOSYN 110 D5W 250 D5W 1/4 NS 40mEq K 991 NS (0.45%) 250 NS (0.9%) 3050 543 IVPB 106 210 ABX - ZOSYN 210 Keppra 106 TPN/PPN 1449 Oral 460 0 0 Output: Joya 725 5250 550 Other: Date of Last Bowel unknown unknown Movement # Bowel Movements 0 0 ADLs: Meal Record Start: 06/23/19 11: 08 Freq: 09,13,18 Status: Complete Protocol: Created 06/23/19 11:08 System (Rec: 06/23/19 11:08 System [facility]-C05) ADLs: Meal Record Start: 06/23/19 15: 24 Freq: DAILY@0900,1400,1800 Status: Active Protocol: Created 06/23/19 15:24 CDH7899 (Rec: 06/23/19 15:24 FYD6345 ICU-C25) Document 06/23/19 18:00 RLM5328 (Rec: 06/23/19 20:33 HBL9580 TELE-C07) Document 06/24/19 09:00 WQV1492 (Rec: 06/24/19 10:22 SNO1586 TELE-C03) Document 06/24/19 18:00 QTW0761 (Rec: 06/24/19 18:15 QDJ5599 TELE-C07) Document 06/25/19 08:58 KGB5973 (Rec: 06/25/19 08:59 QFG9915 TELE-M11) Document 06/25/19 13:57 AAJ2340 (Rec: 06/25/19 13:59 NUD1182 TELE-M11) Document 06/25/19 18:00 XSW9102 (Rec: 06/25/19 22:40 ANH0473 TELE-C05) Document 06/26/19 10:00 RHF7477 (Rec: 06/26/19 11:06 XRO5917 ICU-C15) Document 06/26/19 18:00 JKA2612 (Rec: 06/26/19 18:05 CDI0563 ICU-L03) Document 06/28/19 11:23 KCS9562 (Rec: 06/28/19 11:23 GUQ2323 TELE-M21) Document 06/28/19 13:25 AOE4446 (Rec: 06/28/19 13:25 XFA4915 TELE-M21) Document 06/28/19 21:48 ILZ4293 (Rec: 06/28/19 21:48 RGA5558 TELE-C11) Document 06/29/19 04:22 THZ5608 (Rec: 06/29/19 04:23 ZRC7959 TELE-M21) Document 06/29/19 05:29 SNJ1343 (Rec: 06/29/19 05:29 KFS5391 TELE-M21) Document 06/30/19 18:13 RTG9982 (Rec: 06/30/19 18:13 JJE7803 TELE-M21) Document 07/01/19 09:50 PPV2741 (Rec: 07/01/19 09:50 FPZ7585 TELE-M21) Document 07/01/19 13:21 BRX4601 (Rec: 07/01/19 13:21 XDC2010 TELE-M21) Document 07/01/19 19:39 INA1126 (Rec: 07/01/19 19:39 NAP0635 TELE-M21) Document 07/02/19 14:00 TWM0680 (Rec: 07/02/19 14:47 VVU5849 TELE-C05) Document 07/02/19 18:00 SOR8270 (Rec: 07/02/19 18:28 MKJ4908 TELE-M21) Document 07/03/19 09:00 MIU2092 (Rec: 07/03/19 10:47 VDL8507 TELE-C01) Document 08/05/19 12:58 ERE8621 (Rec: 07/03/19 12:58 LWE4604 TELE-C01) Document 07/03/19 18:00 EJM9700 (Rec: 07/03/19 20:00 RID4470 TELE-C08) Document 07/04/19 09:00 TPH1011 (Rec: 07/04/19 09:37 IZU1198 TELE-M07) Document 07/04/19 12:44 DRB1657 (Rec: 07/04/19 12:44 ZQA6944 TELE-M07) Document 07/04/19 18:00 XDY9085 (Rec: 07/04/19 18:07 QZE9757 TELE-M07) Document 07/05/19 09:00 RMC7097 (Rec: 07/05/19 14:02 BQQ4113 TELE-C11) Document 07/05/19 14:00 MIP7191 (Rec: 07/05/19 14:04 QDO2761 TELE-C11) Document 07/05/19 18:00 DEC5134 (Rec: 07/05/19 18:21 XON7989 TELE-M15) Document 07/06/19 09:00 XFN3325 (Rec: 07/06/19 12:05 OGD6835 TELE-C08) Document 07/06/19 14:00 SCN7722 (Rec: 07/06/19 14:43 ONY3419 TELE-C03) Document 07/06/19 18:00 FLI6068 (Rec: 07/06/19 22:02 UTN9507 TELE-C09) Document 07/07/19 18:00 DMH5410 (Rec: 07/07/19 20:04 MER0961 TELE-C11) Document 07/08/19 09:00 NRI0907 (Rec: 07/08/19 09:54 RVP2026 TELE-C10) Document 07/08/19 13:50 HWG0540 (Rec: 07/08/19 13:51 HJI8872 TELE-C10) Document 07/08/19 18:00 JOG5895 (Rec: 07/08/19 20:09 PTN3673 TELE-C10) Document 07/09/19 08:42 HAH2165 (Rec: 07/09/19 08:43 YNB9179 TELE-C11) Document 07/09/19 13:14 BQT0259 (Rec: 07/09/19 13:14 IER3164 TELE-C11) Document 07/09/19 18:00 FXL0523 (Rec: 07/09/19 21:14 GWL6875 MED-C09) Document 07/10/19 08:58 ZZB1704 (Rec: 07/10/19 08:58 RKG5459 MED-C09) Document 07/10/19 13:34 MVL0062 (Rec: 07/10/19 13:34 SNK9394 MED-C09) Document 07/10/19 17:46 DYG9555 (Rec: 07/10/19 17:47 TKI2105 MED-C13) Document 07/11/19 09:00 BZT6773 (Rec: 07/11/19 11:21 FJM2100 MED-C11) Document 07/11/19 14:00 TIR3758 (Rec: 07/11/19 14:18 NGE8857 MED-C13) Document 07/11/19 18:00 LWK9283 (Rec: 07/11/19 18:23 RJA8051 MED-C13) Document 07/12/19 09:00 WEW2362 (Rec: 07/12/19 09:17 BVF7408 MED-C05) Document 07/12/19 14:00 SGH4620 (Rec: 07/12/19 14:16 UXL2553 MED-C05) Document 07/12/19 18:00 BZY8028 (Rec: 07/12/19 22:01 PJY1804 MED-C02) Document 07/13/19 09:00 WFA2765 (Rec: 07/13/19 12:17 FDP9408 MED-C09) Document 07/13/19 14:00 DHM4920 (Rec: 07/13/19 14:30 NDE9072 MED-C09) Document 07/13/19 17:57 BEM8217 (Rec: 07/13/19 17:58 QWS0881 MED-C11) Document 07/14/19 08:30 NPV3298 (Rec: 07/14/19 08:31 PNV4433 MED-C16) Document 07/14/19 13:24 EHV9715 (Rec: 07/14/19 13:24 YYU9483 MED-C16) Document 07/14/19 17:43 OYC5770 (Rec: 07/14/19 17:43 ZSK1845 MED-C16) Document 07/15/19 09:00 MRU7332 (Rec: 07/15/19 11:43 IER6378 MED-C15) Document 07/15/19 14:00 XKP7848 (Rec: 07/15/19 14:02 IWP5822 MED-C15) Document 07/15/19 18:00 ESQ7600 (Rec: 07/15/19 18:07 FFR8946 MED-C15) Document 07/16/19 18:00 LOK1520 (Rec: 07/16/19 19:07 EOX7192 MED-C15) ADLs: Meal Record Start: 06/25/19 22: 26 Freq: Status: Complete Protocol: Created 06/25/19 22:26 ZNX5892 (Rec: 06/25/19 22:26 NSF5012 ICU-C25) ADLs: Meal Record Start: 06/28/19 12: 17 Freq: Status: Cancelled Protocol: Created 06/28/19 12:17 GOG9571 (Rec: 06/28/19 12:17 GQM1636 TELE-M21) Intake and Output Start: 06/23/19 04: 23 Freq: Status: Inactive Protocol: Created 06/23/19 04:23 System (Rec: 06/23/19 04:23 System EDRM-C10) Intake and Output Start: 06/23/19 11: 08 Freq: Q1HR Status: Inactive Protocol: Created 06/23/19 11:08 System (Rec: 06/23/19 11:08 System PMRU-C05) Document 06/23/19 14:59 UBW3870 (Rec: 06/23/19 15:00 RUE5158 ICU-C25) Intake and Output Start: 06/23/19 15: 24 Freq: DAILY@0600,1400,2200 Status: Inactive Protocol: Document 06/23/19 12:00 TGT5334 (Rec: 06/23/19 15:26 IQF3645 ICU-C25) Created 06/23/19 15:24 NYI1961 (Rec: 06/23/19 15:24 AIS1485 ICU-C25) Document 06/23/19 21:29 CUB1384 (Rec: 06/23/19 21:30 WNN0722 TELE-C07) Document 06/24/19 06:00 XWD5920 (Rec: 06/24/19 06:06 WSP0459 TELE-C09) Document 06/24/19 22:00 TYN9061 (Rec: 06/24/19 22:36 YXY8065 TELE-C07) Document 06/25/19 05:51 JXV3907 (Rec: 06/25/19 05:52 TZC4854 TELE-C07) Document 06/25/19 12:11 NRR3703 (Rec: 06/25/19 12:12 MPI0149 TELE-M11) Intake and Output Start: 06/25/19 22: 26 Freq: Status: Active Protocol: Created 06/25/19 22:26 WTB3502 (Rec: 06/25/19 22:26 ITO4581 ICU-C25) Document 06/25/19 23:00 PTJ6787 (Rec: 06/25/19 23:05 NWM9042 ICU-C25) Document 06/25/19 23:28 AEB2202 (Rec: 06/25/19 23:30 ENZ8050 ICU-C16) Document 06/25/19 23:47 PMV3539 (Rec: 06/25/19 23:47 RSY1542 ICU-C25) Document 06/26/19 01:00 WGV3856 (Rec: 06/26/19 02:24 FJR5433 ICU-C25) Document 06/26/19 02:00 YLR7103 (Rec: 06/26/19 02:24 MLY2960 ICU-C25) Document 06/26/19 03:00 EAV9694 (Rec: 06/26/19 03:21 RQH6276 ICU-C25) Document 06/26/19 04:00 KLT8032 (Rec: 06/26/19 04:13 TRW5878 ICU-C25) Document 06/26/19 05:00 XRW0311 (Rec: 06/26/19 05:01 DOM9274 ICU-C25) Document 06/26/19 06:00 DWB6519 (Rec: 06/26/19 06:05 OIH1286 ICU-C25) Document 06/26/19 07:00 EKG1023 (Rec: 06/26/19 07:58 NOB1380 ICU-C15) Document 06/26/19 07:58 CHR7580 (Rec: 06/26/19 07:58 FQK0702 ICU-C15) Document 06/26/19 09:00 BSR9606 (Rec: 06/26/19 09:41 GVF5394 ICU-C15) Document 06/26/19 10:00 FRR7733 (Rec: 06/26/19 11:07 OBK5789 ICU-C15) Document 06/26/19 11:00 OWA5360 (Rec: 06/26/19 11:07 CRI6075 ICU-C15) Document 06/26/19 12:00 LAW1845 (Rec: 06/26/19 12:14 IUA9179 ICU-C15) Document 06/26/19 13:00 EAR0011 (Rec: 06/26/19 13:22 XRQ8092 ICU-C15) Document 06/26/19 14:00 FLT7719 (Rec: 06/26/19 17:56 YFY2751 ICU-L03) Document 06/26/19 15:00 LES2814 (Rec: 06/26/19 17:57 WCR6573 ICU-L03) Document 06/26/19 16:00 DQP0959 (Rec: 06/26/19 17:57 QTM9885 ICU-L03) Document 06/26/19 17:00 HNP5832 (Rec: 06/26/19 17:57 FTR7469 ICU-L03) Document 06/26/19 17:57 PHR9358 (Rec: 06/26/19 17:57 MLO6160 ICU-L03) Document 06/26/19 19:00 PYE2712 (Rec: 06/26/19 19:08 BCR2004 ISDEMO-M03 ) Document 06/26/19 20:00 NKC4456 (Rec: 06/26/19 20:05 NPR2517 ICU-C15) Document 06/26/19 21:00 IOS4696 (Rec: 06/26/19 22:09 CCJ5242 ISDEMO-M03 ) Document 06/26/19 22:00 TOX4326 (Rec: 06/26/19 22:09 IJJ3151 ISDEMO-M03 ) Document 06/26/19 23:00 ZPO1481 (Rec: 06/26/19 23:20 EHD3041 ICU-C15) Document 06/26/19 23:59 WRP7084 (Rec: 06/26/19 23:59 ZNU3279 ICU-C15) Document 06/27/19 01:00 IIP6944 (Rec: 06/27/19 01:08 JJM7550 ICU-C15) Document 06/27/19 02:00 XZN0423 (Rec: 06/27/19 02:03 CUX0630 ICU-C15) Document 06/27/19 03:00 QQD3239 (Rec: 06/27/19 05:10 OGY9737 ICU-C15) Document 06/27/19 04:00 DNL3111 (Rec: 06/27/19 05:10 ZHA1561 ICU-C15) Document 06/27/19 06:00 NHY0453 (Rec: 06/27/19 06:02 TTA8457 ICU-C15) Document 06/27/19 08:00 XJE0143 (Rec: 06/27/19 08:07 KYY8465 ICU-C15) Document 06/27/19 09:31 WHS4431 (Rec: 06/27/19 09:31 VAY7663 ICU-C15) Document 06/27/19 11:00 QDU6440 (Rec: 06/27/19 11:10 DMZ5457 ICU-C15) Document 06/27/19 13:45 LFV2439 (Rec: 06/27/19 13:56 HRW0232 ICU-C15) Document 07/02/19 07:36 FHU4136 (Rec: 07/02/19 07:36 ARL5558 TELE-M20) Document 07/02/19 14:00 GEM2090 (Rec: 07/02/19 14:47 OAM9816 TELE-C05) Document 07/02/19 15:34 IEB3114 (Rec: 07/02/19 15:34 UXQ0385 TELE-M20) Document 07/02/19 21:53 XFY5930 (Rec: 07/02/19 21:53 GZG0255 TELE-M21) Document 07/03/19 06:00 NMF9349 (Rec: 07/03/19 07:27 LQS2197 TELE-C10) Document 07/03/19 14:00 LUX6983 (Rec: 07/03/19 14:58 PLD8360 TELE-C01) Document 07/03/19 21:47 TZI8046 (Rec: 07/03/19 21:47 SAE5513 TELE-C08) Document 07/04/19 03:30 CMN1121 (Rec: 07/04/19 07:00 FGY6290 MED-M16) Document 07/04/19 06:00 IAG4337 (Rec: 07/04/19 06:04 OMV9861 TELE-C08) Document 07/04/19 13:35 PIA8202 (Rec: 07/04/19 13:36 YME4903 TELE-M07) Document 07/04/19 21:32 YQK3755 (Rec: 07/04/19 21:37 JOV7407 TELE-M07) Document 07/05/19 06:00 BUE8849 (Rec: 07/05/19 07:03 SXM0318 TELE-C10) Document 07/05/19 14:00 NQR7828 (Rec: 07/05/19 14:30 MGK9450 TELE-C11) Document 07/05/19 22:00 NMJ1515 (Rec: 07/05/19 23:26 RJW8751 TELE-C33) Document 07/06/19 05:48 EHT4079 (Rec: 07/06/19 05:49 WHI5306 TELE-M13) Document 07/06/19 14:00 BJF0013 (Rec: 07/06/19 14:43 OFH0442 TELE-C03) Document 07/06/19 22:00 LAS0023 (Rec: 07/06/19 22:05 TPE9740 TELE-C09) Document 07/07/19 03:57 OWV4415 (Rec: 07/07/19 03:57 FEH9889 TELE-C13) Document 07/07/19 05:37 LQD8024 (Rec: 07/07/19 05:37 QOG6471 TELE-C13) Document 07/07/19 22:00 RTB0883 (Rec: 07/07/19 22:42 ORC7740 TELE-C11) Document 07/08/19 06:00 PNN0568 (Rec: 07/08/19 07:55 VQR1137 TELE-C11) Document 07/08/19 13:51 WZW4285 (Rec: 07/08/19 13:51 ZAC4872 TELE-C10) Document 07/08/19 22:00 IXV5907 (Rec: 07/08/19 22:40 JBJ7593 TELE-C10) Document 07/09/19 06:00 UYJ0054 (Rec: 07/09/19 06:09 OGW9255 TELE-C10) Document 07/09/19 13:14 GXQ4405 (Rec: 07/09/19 13:15 XIA2248 TELE-C11) Document 07/09/19 18:00 QLD3347 (Rec: 07/09/19 18:23 RXH2955 TELE-C05) Document 07/09/19 22:00 HGI8098 (Rec: 07/10/19 06:25 XMI1473 MED-C11) Document 07/10/19 06:00 ZXQ8258 (Rec: 07/10/19 06:27 SEJ9620 MED-C11) Document 07/10/19 13:34 DTZ3899 (Rec: 07/10/19 13:34 KKY4669 MED-C09) Document 07/10/19 22:00 PZI3949 (Rec: 07/11/19 04:55 OGV3411 MED-C11) Document 07/11/19 04:56 VXA8838 (Rec: 07/11/19 04:56 RVY1108 MED-C11) Document 07/11/19 14:00 OAV0568 (Rec: 07/11/19 16:21 MYP1303 MED-C11) Document 07/11/19 18:38 NMT2211 (Rec: 07/11/19 18:39 TEC9507 MED-C11) Document 07/11/19 22:00 YZF2328 (Rec: 07/11/19 22:55 LIT8425 MED-C09) Document 07/12/19 05:35 UHL3773 (Rec: 07/12/19 05:35 RCQ0580 MED-C09) Document 07/12/19 14:00 KFX1960 (Rec: 07/12/19 14:16 ZUT2679 MED-C05) Document 07/12/19 22:00 VCT5725 (Rec: 07/12/19 22:07 NZV4562 MED-C13) Document 07/13/19 06:00 YRI3945 (Rec: 07/13/19 06:17 EBK2545 MED-C05) Document 07/13/19 14:00 YYC8252 (Rec: 07/13/19 14:30 BYB6201 MED-C09) Document 07/13/19 20:18 DEM5992 (Rec: 07/13/19 20:18 ESE6879 MED-C09) Document 07/14/19 06:00 AMX3181 (Rec: 07/14/19 06:27 PJY6518 MED-C09) Document 07/14/19 14:00 VZG8132 (Rec: 07/14/19 14:30 XRB1146 MED-C16) Document 07/14/19 21:21 HUO3757 (Rec: 07/14/19 21:21 QPX9490 MED-C13) Document 07/15/19 06:00 GTC8339 (Rec: 07/15/19 06:13 WUD7618 MED-C13) Assessment - Problem List Assessment: Patient Problems Altered mental state (Acute) Aphasia (Acute) CHF, acute (Acute) Comfort measures only status (Acute) Left arm weakness (Acute) Lower respiratory tract infection (Acute) On total parenteral nutrition (Acute) Prerenal renal failure (Acute) Respiratory distress (Acute) Steroid-induced diabetes (Acute) Volume overload (Acute) Alcohol dependence (Chronic) Anemia (Chronic) Anticoagulated (Chronic) Atrial fibrillation (Chronic) Bronchiectasis (Chronic) COPD (chronic obstructive pulmonary disease) (Chronic) Coronary artery disease (Chronic) DVT prophylaxis (Chronic) 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 She is receiving comfort care. I spoke with Kevin Patel and gave him an update. He concurs with this end of life care.
[2019-07-17] MEDS: methylPREDNISolone SOD 40 MG* 1 ML VIAL IV SCH (08:08)
--- NOTE | 2019-07-21 11:17 | DS ---
SUMMARY: DATE OF ADMISSION: 06/23/19 DATE OF : 07/17/19 DIAGNOSES: 1. Right lower lobe pneumonia. 2. Acute renal failure. 3. Acute liver failure. 4. Acute respiratory distress syndrome. 5. Pulmonary edema. 6. Delirium. 7. Encephalopathy. 8. Malnutrition. SECONDARY DIAGNOSES: 1. Atrial fibrillation. 2. Anticoagulation. 3. Chronic obstructive pulmonary disease. 4. Coronary artery disease. 5. History of previous embolic cerebrovascular accident. 6. Essential hypertension. 7. Right homonomous hemianopsia. 8. Osteoporosis. 9. Seizure disorder. COMORBIDITIES: 1. Steroid-induced diabetes. 2. Anemia. 3. Bronchiectasis. DISPOSITION: Shawn. CONDITION: . HISTORY: Abeba Patel was a 79-year-old white female. She had a prior admission 06/08/19 to 06/19/19 . This was an acute fulminant illness following recent trip to [place] characterized by infection, acu te myocardial infarction, multiorgan system failure with ischemic hepatitis, acute tubular necrosis, and respiratory failure. She recovered sufficiently for discharge to [facility] facility at [facility]. I discharged her on Keflex. She returned to the hospital with acute renal failure. Her presentation is documented in Tatiana cardenas MD's admitting history and physical. In short, she was in acute respiratory distress, placed on BiPAP. INITIAL PHYSICAL EXAMINATION: Blood pressure 92/69, heart rate 99, respiratory rate 25, oxygen satur ation 96% on 50% FiO2 and BiPAP, temperature 98.3. Examination, bilateral rales to mid lung zones. S he was lethargic and sedated. INITIAL EXAMINATION: White count 25, hemoglobin 11.5, hematocrit 36, platelets 301, INR 2.12. VBG: pH 7.4, pCO2 of 40, pO2 of 43, bicarb 24. Chemistry: Sodium 136, potassium 4.5, chloride 101, bica rbonate 23, BUN 28, creatinine 1.03, troponin 0.07, BNP 859, lactic acid 4.9. INITIAL IMPRESSION: Acute respiratory failure. She was admitted to the intensive care unit. It was thought initially that this could be flash pulmonary edema, but there might be a contributing infect ion. She was placed on BiPAP. INVESTIGATIONS: Imaging showed serial chest x-rays during hospitalization on 06/23/19. Signs sugges tive of pulmonary edema. 06/30/[address]; diffuse pattern of airspace disease throughout both lungs. Differential diagnosis: Infection, alveolar edema, bilateral pleural effusions, compressive atelectasis, soft tissue densit y right lower lobe suggestive of bronchiectasis. 07/03/19 chest x-ray. Cardiomegaly, interstitial edema, alveolar infiltrates in the upper lobe. 07/05/19: PICC line placed. 07/07/19: Interval improvement of alveolar and its interstitial infiltrates. 07/12/19: Significant interval resolution of consolidation. Chest CT 07/11/19: No acute intracranial abnormality. Cardiovascular System: She had serial EKGs, which failed to show any signs of acute ischemia, though she had T-wave inversions in her anterior leads and atrial fibrillation. 06/23/19 transthoracic echocardiogram. No regional wall motion abnormalities. Moderate mitral regurg itation. Mild aortic stenosis. Pulmonary artery pressure estimated at 50 mmHg. Neurology 06/26/19: EEG; no epileptiform discharges, compatible with diffuse cerebral dysfunction. 07/11/19, consistent with encephalopathy. LABORATORY INVESTIGATIONS: Her white count ranged from 11.7 to 27.4. Her percent neutrophils ranged from 76.6 to 90. I note that she was on steroids for a part of this stay. Creatinine has ranged fr om 0.89 to 2.15. Liver function tests: Bilirubin ranged between 1.7 and 7.3. Her AST between 34 and 83. ALT between 34 and 109. Alkaline phosphatase between 95 and 126. C-reactive protein at presen tation was 110.58 and on 07/15/19 at 35. Urinalysis was negative. Toxicology: Levetiracetam levels 06/24/19 of 37 and 07/03/19 of 53.3. Lamotrigine levels were normal, as were digoxin levels. Serolo gy: Negative for mycoplasma pneumonia IgM. CONSULTATIONS: Neurology Dr. Feng Nash on 06/25/19. Impression: Toxic metabolic encephalopathy. She was also followed during this hospitalization by Dr. Pandey. We saw her last on 06/28/19, jose rivera which was improving at that date. HOSPITAL COURSE: Abeba Patel had a prolonged and complicated hospital course. Her chose dur ing this first part of her visit for acute medical care. Once she left the ICU, he wanted continued medical care, but not ICU care and then in the last 24 hours, he accepted that she should have comfor t care. During this hospitalization she developed ARDS, hepatic failure, kidney failure. She had multiple epi sodes of pulmonary edema. Her mental state never fully recovered. We tried her on total parenteral nutrition. On the penultimate day in the hospital, it was clear that she was dying. Her acc epted comfort care and this was provided. She peacefully on 07/17/19 at 1345. [id number]/[facility] #: [id number]
== END 2019-07-17 13:45 | disposition expired | DRG 291 ==
LOC: ED 04:07 → ICU 06:03 → MEDTELE 18:18 → ICU 06-25 23:05 → MEDTELE 06-27 15:31 → MED 07-09 18:25
PROVIDERS: ADMIT Internal Medicine; ATTEND Internal Medicine
PROC: 5A09357 Assistance with Respiratory Ventilation, Less than 24 Consecutive Hours, Continuous Positive Airway Pressure (ICD-10-PCS; 2019-06-25)
PROC: 02HV33Z Insertion of Infusion Device into Superior Vena Cava, Percutaneous Approach (ICD-10-PCS; principal; 2019-07-04)
PROC: 4A00X4Z Measurement of Central Nervous Electrical Activity, External Approach (ICD-10-PCS; 2019-07-11)
DX: I11.0 Hypertensive heart disease with heart failure (principal); J96.01 Acute respiratory failure with hypoxia; N17.9 Acute kidney failure, unspecified; E87.0 Hyperosmolality and hypernatremia; G93.40 Encephalopathy, unspecified; I48.2 Chronic atrial fibrillation; I50.33 Acute on chronic diastolic (congestive) heart failure; J44.9 Chronic obstructive pulmonary disease, unspecified; I25.10 Atherosclerotic heart disease of native coronary artery without angina pectoris; I50.9 Heart failure, unspecified; G40.909 Epilepsy, unspecified, not intractable, without status epilepticus; I34.0 Nonrheumatic mitral (valve) insufficiency; H53.47 Heteronymous bilateral field defects; I73.9 Peripheral vascular disease, unspecified; M81.0 Age-related osteoporosis without current pathological fracture; R41.82 Altered mental status, unspecified; Z51.5 Encounter for palliative care; F10.20 Alcohol dependence, uncomplicated; D64.9 Anemia, unspecified; H53.461 Homonymous bilateral field defects, right side; J47.9 Bronchiectasis, uncomplicated; R34 Anuria and oliguria; E87.6 Hypokalemia; D72.829 Elevated white blood cell count, unspecified; I69.391 Dysphagia following cerebral infarction; I69.398 Other sequelae of cerebral infarction; Z72.89 Other problems related to lifestyle; Z87.891 Personal history of nicotine dependence; Z82.3 Family history of stroke; I69.921 Dysphasia following unspecified cerebrovascular disease
CPT/HCPCS: 36415; 36600; 70450; 70551; 71045; 71250; 80048; 80053; 80076; 80162; 80175; 80177; 81003; 82140; 82465; 82607; 82803; 83605; 83735; 83880; 84100; 84134; 84145; 84443; 84478; 84484; 85014; 85018; 85025; 85027; 85049; 85060; 85610; 85730; 86140; 86738; 87040; 87641; 87899; 93005; 93306; 94640; 94660; 95816; 95819; 99285; A9270-GY; C1751; J0360; J0692; J1160; J1630; J1650; J1940; J1956; J2060; J2250; J2270; J2543; J2920; J3370; J3411; J3430; J3475; J3480; J3490; J7512